=== PATIENT | male | born 1935 | race Caucasian/White ===

== ENCOUNTER 2019-09-03 15:20 | Inpatient (IN) | payer MEDICARE, OTHER, SELFPAY ==
[2019-09-03] VITALS (9 sets, daily range): BP systolic 124–190; BP diastolic 61–90; PULSE 54–73; RESP 16–18; TEMP 36.4–37.1; O2SAT 92–96; BMI 25.9
--- NOTE | 2019-09-03 | GALL_PTH ---
PATIENT: BLOSSOM BASS LOC: MS3 U#:[id number] AGE/SX: 83/M ROOM: CT320 RE09/04/[address]: Dr. Chaka Hung MD : 1935 BED: 1 DIS: 09/11/2019 SPEC #: [id number] RECD: 09/07/19 16:14 STATUS: BRISSA REMerly #: [id number] REGINO: 09/03/19 00:[address]: Octaviano Ramos DEPT: SURGICAL PATHOLOGY RECD BY: Husam Philip ENTERED: 09/08/19 09:50 SP TYPE: GALLBLADDE OTHR DR: DO Dr. Mick Garcia MD Dr. Jayaprakas Dasari, MD Dr. Juan Miguel Proano, MD Dr. Nicholas F Kotsonis, MD No Primary Care Phys Tissues: Gallbladder, NOS Procedures: Surgery Specimen Level III HEADER OPERATION: ERCP PRE-OP DIAGNOSIS: Choledocholithiasis; biliary jaundice TISSUE SUBMITTED: Gallbladder MICROSCOPIC DIAGNOSIS Gallbladder, cholecystectomy: Moderate to marked chronic cholecystitis and cholelithiasis. Adherent piece of liver parenchymal tissue with portal acute and chronic inflammation and reactive changes. MONA:natalie 09/09/19 MICROSCOPIC DESCRIPTION Slides are reviewed. GROSS DESCRIPTION Received is one container labeled with the patient's name and designated gallbladder. The specimen consists of a gallbladder measuring 9 cm in length and up to 3.5 cm in diameter. The external surface is pink-huston, smooth and glistening for the most part. Focally it is granular, hemorrhagic and contains cautery artifact. The gallbladder contains a scant amount of green-yellow mucoid bile and multiple black irregular stones measuring in aggregate 2.5 x 2 x 0.5 cm and 0.3 to 0.5 cm in greatest dimension. The mucosa is bile-stained and without any mass lesions. The gallbladder wall measures up to 0.3 cm in thickness. Talent Development Consultant sections from the gallbladder and the cystic duct are submitted in one cassette. / MONA:natalie 09/08/19 TC:3 [facility] [place]: [id number]
--- NOTE | 2019-09-03 15:46 | HP.PCM_ITS ---
<Joe Jarquin - Last Filed: 09/03/19 15:46> Problem List (1) Choledocholithiasis Status: Acute (2) Obstructive uropathy Status: Acute (3) ALYSON (acute kidney injury) Status: Acute (4) GERD (gastroesophageal reflux disease) Status: Chronic (5) HTN (hypertension) Status: Chronic (6) BPH (benign prostatic hyperplasia) Status: Chronic History of Present Illness Date of Admission: 09/03/19 Chief Complaint: RUQ pain The patient is a 83 year old M with pmhx of BPH, GERD, HTN, CONNER, who presented to [facility] with c/o RUQ abdominal pain. This has been present since saturday. He has had associated nausea and vomiting. He went to [facility] and was reportedly found to have elevated bili, positive influenza, and ALYSON. Unfortunately no labs were sent with his paperwork so stat labs are pending. He was brought to [facility] and is going to be taken for an ERCP with Dr. Ramos. He currently c/o ongoing RUQ pain. He attempted to void and had about 200 cc out and about 800 cc retained. He has seen Dr. Eden in the past for BPH and has had a TURP. He has no fever/chills. No cough / SOB. He denies a hx of heart dz. He states he is alleric to [facility] however he received Zosyn at [facility] and has been itchy since. [] Past Medical History Past Medical History (Chronic Problems): Chronic Problems GERD (gastroesophageal reflux disease) (Chronic) HTN (hypertension) (Chronic) BPH (benign prostatic hyperplasia) (Chronic) Surgical History: TURP Psychiatric History: Depression Lives: Spouse/ Significant Other Smoking Status: Never smoker Tobacco Use: Non-smoker Alcohol: None Drugs: None - *Family History Maternal History Items: Stroke Paternal History Items: Cancer - prostate Review of Systems Constitutional: Denies: Chills, Fever, Weight Change HEENT: Denies: Head Aches, Sinus Congestion, Sinus Drainage Cardiovascular: Denies: Chest Pain, Palpitations Respiratory: Denies: Cough, Shortness of breath at rest, Sputum production Gastrointestinal: Reports: Abdominal Pain, Nausea, Vomiting Genitourinary: Reports: Retention. Denies: Dysuria, Urgency Musculoskeletal: Denies: Joint Pain, Joint Tenderness Skin: Denies: Rash, Wounds Neurological: Denies: Numbness, Tingling, Focal weakness Psychiatric: Denies: Anxiety, Depression, Homicidal Ideations, Suicidal Ideations Hematologic/ Lymphatic: Denies: Easy Bruising, Easy Bleeding VTE Information - Inpt Only VTE Present on Admission: No VTE Mechan Device Prophylaxis: SCD's VTE Pharm Prophylaxis ordered?: No Patient Problems: Active and Suspected Problems Choledocholithiasis (Acute) ALYSON (acute kidney injury) (Acute) Obstructive uropathy (Acute) - Physical Exam Vitals/I&O's: Vital Signs Temp Pulse Resp BP Pulse Ox 97.6 F L 55 L 18 155/80 H 96 09/03/19 15:28 09/03/19 15:28 09/03/19 15:28 09/03/19 15:28 09/03/19 15:28 Oxygen Delivery Method Room Air Weight: 175 lb 4.8 oz Body Mass Index (BMI) 25.9 General: Alert, Oriented x3, Cooperative HEENT: Atraumatic, PERRLA, EOMI, Normocephalic Neck: Supple, No JVD, Negative Carotid Bruits Lungs: Clear to auscultation, Normal air movement Cardiovascular: Regular rate, No murmurs Abdomen: Bowel Sounds Present, Soft, Tender - RUQ Extremities: No edema, Capillary Refill Less than 3 Seconds Skin: No rashes, No breakdown Musculoskeletal: No Tenderness to Palpation of Joints or Extremities Neurological: Cranial nerves II-XII grossly intact Psych/Mental Status: Normal Affect, Appropriate, Alert and oriented to time, place, person, mood and affect Current Medications Sodium Chloride () 1,000 mls @ 100 mls/hr IV .Q10H MAURILIO Morphine Sulfate () 1 mg IV Q2H PRN PRN PRN Reason: Pain Score 6-10/10 Ondansetron HCl (Zofran) 4 mg IV Q6H PRN PRN PRN Reason: NAUSEA Assessment/Plan All Active Problems Choledocholithiasis (Acute) ALYSON (acute kidney injury) (Acute) Obstructive uropathy (Acute) 1. Choledocholithiasis - ERCP now with Dr. Ramos. Likely gallbladder out tomorrow or saturday. Stat labs pending. Received zosyn with some mild itching (allergic to pcn), watch for further reaction. 2. ALYSON 2/2 BPH/obstructive uropathy - pt of Dr. Eden. Place ortega. Adjust home meds once clarified. 3. CONNER - will try to bring CPAP 3. GERD - ppi 4. HTN/HLD - continue home meds 5. Depression - zoloft DVT ppx: SCDs This patient was seen by Joe Jarquin PA-C under the supervision of Dr. Carlos. <David Carlos F - Last Filed: 09/03/19 17:52> History of Present Illness The patient is a 83 year old M [] Past Medical History Allergies Penicillins Adverse Reaction (Verified 09/03/19 15:51) Hives - Physical Exam Vitals/I&O's: Vital Signs Temp Pulse Resp BP Pulse Ox 98.7 F 73 16 190/90 H 95 09/03/19 17:33 09/03/19 17:33 09/03/19 17:33 09/03/19 17:33 09/03/19 17:33 Oxygen Delivery Method Room Air Weight: 175 lb 4.8 oz Body Mass Index (BMI) 25.9 Laboratory Results 09/03/19 15:40: WBC 7.2, RBC 4.68, Hgb 13.5, Hct 41.8, MCV 89.3, MCH 28.8, MCHC 32.3, RDW Std Deviation 46.5 H, RDW Coeff of Ezio 14.4, Plt Count 135 L, MPV 11.8, Neut % (Auto) Not Reportable, Absolute Neuts (auto) 5.3, Absolute Lymphs (auto) 0.50 L, Total Counted 100, Neutrophils % (Manual) 72 H, Band Neutrophils % 1, Lymphocytes % (Manual) 18 L, Monocytes % (Manual) 7, Eosinophils % (Manual) 2, Diff Path Review December, Platelet Estimate SLT DEC, RBC Morphology NORM C+C 09/03/19 15:40: PT 16.0 H, INR 1.3, APTT 29.3 09/03/19 15:40: Sodium 140, Potassium 4.4, Chloride 110 H, Carbon Dioxide 22.0, Anion Gap 8, BUN 106 H*, Creatinine 6.85 H, Estim Creat Clear Calc 8.31, Est GFR (MDRD) Af Amer 10 L, Est GFR (MDRD) Non-Af 8 L, BUN/Creatinine Ratio 15.5, Glucose 88, Calcium 8.7, Total Bilirubin 2.40 H, AST 129 H, ALT 150 H, Alkaline Phosphatase 580 H, Total Protein 7.1, Albumin 2.6 L, Globulin 4.5 H, Albumin/Globulin Ratio 0.6 L Current Medications Sodium Chloride () 1,000 mls @ 100 mls/hr IV .Q10H MAURILIO Lactated Ringer's () 1,000 mls @ 100 mls/hr IV .Q10H MAURILIO Morphine Sulfate () 1 mg IV Q2H PRN PRN PRN Reason: Pain Score 6-10/10 Ondansetron HCl (Zofran) 4 mg IV Q6H PRN PRN PRN Reason: NAUSEA Sodium Chloride () 10 - 40 ml IV UD PRN PRN Reason: SALINE FLUSH Code Visit Addendum: Dr. Carlos I personally examined the patient and reviewed the chart. I agree with the above. 83-year-old man who presented to [place] with right upper quadrant abdominal pain. He says at this been going on since about Saturday and when he presented to the ER he was found to have an elevated total bilirubin as well as an elevated alk phos. Also his creatinine was around 7 and therefore they recommended transfer to a higher level of care. He has not been seen in this institution since about 2012. However based on his lab work Dr. Ramos per form an ERCP and plan cystoscopy stent in both his common bile duct as well as pancreatic duct. He did have drainage and he believes he got all the stone fragments. We will continue to monitor him on IV fluids as well as continue with the Ortega that was placed since he had about 800 cc of urine out. He does have a history of BPH and had a TURP in the past by urology. OBSV E&M: [id number] Initial observation care L3
[2019-09-03] MEDS: Lactated Ringers 1,000 ML 100 ML IV ×2 (16:00→17:59)
[2019-09-03 16:02] LABS: Hematocrit 41.8 % (40-54); Hemoglobin 13.5 g/dL (13.0-16.5); Mean Corp Hgb Conc 32.3 g/dL (32-36); Mean Corpuscular Hgb 28.8 pg (27.0-32.0); Mean Corpuscular Volume 89.3 fL (80-94); Mean Platelet Vol. 11.8 fl (6.2-12.0); POSITIVE COUNT YES; POSITIVE MORPHOLOGY YES; Platelet Count 135 K/mm3 (150-450); RBC Distribution Width CV 14.4 % (11.6-14.6); RBC Distribution Width SD 46.5 fl (35.1-43.9); Red Blood Count 4.68 M/mm3 (4.6-6.2); White Blood Count 7.2 K/mm3 (4.4-11.0)
[2019-09-03 16:03] LABS: Differential Indicated MANUAL DIFF
[2019-09-03 16:04] LABS: International Normalized Ratio 1.3
[2019-09-03 16:05] LABS: Partial Thromboplast Time 29.3 Seconds (24.1-36.2)
--- NOTE | 2019-09-03 16:09 | CON.PCM_ITS ---
Problem List (1) Choledocholithiasis Status: Acute Reason for Consult Date of Consultation: 09/03/19 Reason for Consultation: Choledocholithiasis History of Present Illness: The patient is a 83 year old M presented to the outside ER with right upper quadrant pain. Patient reports that he has been nauseous for the past few days with right upper quadrant pain. He also said that he had the flu with nausea and vomiting. Past Medical History Past Medical History (Chronic Problems): Chronic Problems GERD (gastroesophageal reflux disease) (Chronic) HTN (hypertension) (Chronic) BPH (benign prostatic hyperplasia) (Chronic) Allergies Penicillins Adverse Reaction (Verified 09/03/19 15:51) Hives Surgical History: TURP Psychiatric History: Depression Lives: Spouse/ Significant Other Smoking Status: Never smoker Tobacco Use: Non-smoker Alcohol: None Drugs: None - *Family History Maternal History Items: Stroke Paternal History Items: Cancer - prostate Review of Systems Constitutional: Denies: Anorexia, Fever Respiratory: Denies: Cough Gastrointestinal: Reports: Abdominal Pain, Nausea, Vomiting Genitourinary: Reports: Retention, - - History of urinary obstruction Skin: Reports: Jaundice Psychiatric: Denies: Anxiety Hematologic/ Lymphatic: Denies: Adenopathy, Anemia Patient Problems: Active and Suspected Problems Choledocholithiasis (Acute) ALYSON (acute kidney injury) (Acute) Obstructive uropathy (Acute) - Physical Exam Vitals/I&O's: Vital Signs Temp Pulse Resp BP Pulse Ox 97.6 F L 55 L 18 155/80 H 96 09/03/19 16:01 09/03/19 16:01 09/03/19 16:01 09/03/19 16:01 09/03/19 16:01 Oxygen Delivery Method Room Air Weight: 175 lb 4.8 oz Body Mass Index (BMI) 25.9 General: Alert, Oriented x3 Neck: No JVD Lungs: Normal air movement Cardiovascular: Regular rate, Regular Rhythm Abdomen: Soft, Non-Distended, Tender - Tender in the right upper quadrant Musculoskeletal: No Muscle Wasting Neurological: Cranial nerves II-XII grossly intact Psych/Mental Status: Normal Affect Laboratory Results 09/03/19 15:40: WBC 7.2, RBC 4.68, Hgb 13.5, Hct 41.8, MCV 89.3, MCH 28.8, MCHC 32.3, RDW Std Deviation 46.5 H, RDW Coeff of Ezio 14.4, Plt Count 135 L, MPV 11.8, Neut % (Auto) Not Reportable, Absolute Neuts (auto) Pending 09/03/19 15:40: PT 16.0 H, INR 1.3, APTT 29.3 09/03/19 15:40: Sodium Pending, Potassium Pending, Chloride Pending, Carbon Dioxide Pending, Anion Gap Pending, BUN Pending, Creatinine Pending, Est GFR (MDRD) Af Amer Pending, Est GFR (MDRD) Non-Af Pending, BUN/Creatinine Ratio Pending, Glucose Pending, Calcium Pending, Total Bilirubin Pending, AST Pending, ALT Pending, Alkaline Phosphatase Pending, Total Protein Pending, Albumin Pending Current Medications Sodium Chloride () 1,000 mls @ 100 mls/hr IV .Q10H MAURILIO Lactated Ringer's () 1,000 mls @ 100 mls/hr IV .Q10H MAURILIO Morphine Sulfate () 1 mg IV Q2H PRN PRN PRN Reason: Pain Score 6-10/10 Ondansetron HCl (Zofran) 4 mg IV Q6H PRN PRN PRN Reason: NAUSEA Sodium Chloride () 10 - 40 ml IV UD PRN PRN Reason: SALINE FLUSH Assessment/Plan All Active Problems Choledocholithiasis (Acute) ALYSON (acute kidney injury) (Acute) Obstructive uropathy (Acute) 83-year-old male with choledocholithiasis and biliary jaundice 1. Patient has CT scan which showed dilation of the common bile duct as well as a small stone in the distal common bile duct. He also has cholelithiasis. Patient has elevated LFTs. I discussed his findings with him and recommended ERCP. I discussed the risks of ERCP including but not limited to bleeding, infection, perforation of the bile duct or bowel, pancreatitis. I also explained placing a stent so that no other stones moved into his common bile duct and re-obstructed him before his gallbladder would be able to be removed. Patient received antibiotics at the outside hospital. 2. Patient is also having elevated creatinine. The patient does not report decrease in urine amounts. He has a history of TUR and urinary bladder obstruction. The patient was scanned for 900 cc of urine and then try to void and only got [address] a Franklin during the surgery and consult urology for obstructive uropathy. Check creatinine in the morning. Octaviano Ramos MD Pager: [facility] [address] [place] [address] [address] [place] [address] Office:
[2019-09-03 16:10] LABS: ALB/GLOB Ratio 0.6 RATIO (0.9-2.4); AST(SGOT) 129 U/L (15-37); Alanine Aminotransfer ALT/SGPT 150 U/L (16-61); Albumin, Serum 2.6 g/dL (3.2-5.0); Alkaline Phosphatase 580 U/L (45-117); Anion Gap 8 (5-15); BUN 106 mg/dL (7-18); BUN/Creat Ratio 15.5 RATIO (10-20); Calcium,Total 8.7 mg/dL (8.5-10.1); Chloride 110 mmol/L (98-107); Creatinine, Serum 6.85 mg/dL (0.70-1.30); EST Glomerular Filtration Rate 8 mL/min (>60); Est Glom Filt Rate - Afr Amer 10 mL/min (>60); Estimated Creatinine Clearance 8.31 ml/min; Globulin 4.5 g/dL (2.2-4.2); Glucose 88 mg/dL (74-106); Potassium 4.4 mmol/L (3.5-5.1); Protein, Total 7.1 g/dL (6.4-8.2); Sodium Level 140 mmol/L (136-145)
--- NOTE | 2019-09-03 16:20 | SUR.OPER ---
18FR ortega inserted in OR after pt. received anesthesia.
--- NOTE | 2019-09-03 16:22 | RAD_ITS ---
STUDY: ERCP. REASON FOR EXAM: Male, 83 years old. ERCP IN O.R., PAIN. -- BILIARY AND PANCREATIC DUCT PLACED FLUOROSCOPY TIME (if supplied): ( 6 minutes and 11 seconds. ) minutes/seconds TECHNIQUE: The surgeon performed the ERCP. Imaging was submitted. COMPARISON: None. FINDINGS: Images demonstrate placement of a stent in the common bile duct and in the pancreatic duct. RAD/ERCP Biliary/Pancreas IMPRESSION: Stent placement in the common bile duct and pancreatic duct. Electronically Signed: Delmar Durbin, at 8:41 EST , Service support ,
[2019-09-03 16:33] LABS: Eosinophil 2 % (0-5); Lymphocyte 18 % (19-41); Monocyte 7 % (0-10); Neutrophil-Band 1 % (0-5); Neutrophil-Segmented 72 % (47-70); Red Cell Morphology NORM C+C NORMAL (NORM C&C); Total Cells Counted 100 (MANUAL DIFF)
[2019-09-03 16:34] LABS: Platelet Estimate SLT DEC (ADEQ)
[2019-09-03 16:38] LABS: Absolute Neutrophil Count 5.3 X10^3/uL (2.0-7.7)
--- NOTE | 2019-09-03 17:03 | PCA ---
pt off floor
--- NOTE | 2019-09-03 17:54 | OP.ERCP_ITS ---
Patient Name: Hosea Peterson Procedure Date: 09/03/2019 3:46 PM Date of : 1935 Age: 83 Procedure: ERCP Indications: Bile duct stone(s) Providers: Octaviano Ramos MD Medicines: General Anesthesia Patient Profile: This is an 83 year old male. Refer to note in patient chart for documentation of history and physical. Complications: No immediate complications. Procedure: Pre-Anesthesia Assessment: - Prior to the procedure, a History and Physical was performed, and patient medications and allergies were reviewed. The patient's tolerance of previous anesthesia was also reviewed. The risks and benefits of the procedure and the sedation options and risks were discussed with the patient. All questions were answered, and informed consent was obtained. Prior Anticoagulants: The patient has taken no previous anticoagulant or antiplatelet agents. After reviewing the risks and benefits, the patient was deemed in satisfactory condition to undergo the procedure. After obtaining informed consent, the scope was passed under direct vision. Throughout the procedure, the patient's blood pressure, pulse, and oxygen saturations were monitored continuously. The [id number] endoscope was introduced through the mouth, and advanced to the duodenum and used to inject contrast into the bile duct and ventral pancreatic duct. The ERCP was accomplished without difficulty. The patient tolerated the procedure well. Scope In: 4:31:21 PM Scope Out: 5:18:31 PM Total Procedure Duration Time 0 hours 47 minutes 10 seconds Findings: The major papilla was normal. The bile duct could not be cannulated. Wire was inserted into pancreatic duct. Dreamtome with a second wire was used to cannulated the common bile duct. A 0.035 inch x 260 cm straight Dreamwire was passed into the biliary tree. The sphincterotome was passed over the guidewire and the bile duct was then deeply cannulated. Contrast was injected. Biliary sphincterotomy was made with a monofilament sphincterotome using ERBE electrocautery. There was no post-sphincterotomy bleeding. To discover objects, the biliary tree was swept with a 12 mm balloon starting at the bifurcation. One stone was removed. One stone remained. The biliary tree was swept with a basket starting at the bifurcation. One stone was removed. No stones remained. One 7 Fr by 5 cm plastic stent with a single external flap and a single internal flap was placed into the common bile duct. Bile flowed through the stent. The stent was in good position. One 4 Fr by 5 cm plastic stent with a 3/4 external pigtail and a single internal flap was placed into the ventral pancreatic duct. Clear fluid flowed through the stent. The stent was in good position. Impression: - The major papilla appeared normal. - Choledocholithiasis was found. Removal was accomplished with biliary sphincterotomy; a stent was inserted. - A biliary sphincterotomy was performed. - The biliary tree was swept. - One plastic stent was placed into the common bile duct. - One plastic stent was placed into the ventral pancreatic duct. Recommendation: - [facility] care. - Watch for pancreatitis, bleeding, perforation, and cholangitis. Procedure Code(s): --- Professional --- 29524, Endoscopic retrograde cholangiopancreatography (ERCP); with placement of endoscopic stent into biliary or pancreatic duct, including pre- and post-dilation and guide wire passage, when performed, including sphincterotomy, when performed, each stent [id number], 51, Endoscopic retrograde cholangiopancreatography (ERCP); with removal of calculi/debris from biliary/pancreatic duct(s) Diagnosis Code(s): --- Professional --- K80.50, Calculus of bile duct without cholangitis or cholecystitis without obstruction CPT copyright 2017 [employer]. All rights reserved. The codes documented in this report are preliminary and upon adoption counselor review may be revised to meet current compliance requirements. Octaviano Ramos MD 09/03/2019 5:54:01 PM This report has been signed electronically. Number of Addenda: 0 Note Initiated On: 09/03/2019 3:46 PM
--- NOTE | 2019-09-03 19:48 | CPS ---
Pts. home CPAP machine setup at bedside. CPAP 9 with 30 min ramp feature. No O2 was reported to be used with machine per pts. home routine. Water chamber filled and mask placed on with comfort. Will monitor ptRuslan rausch. RN aware.
[2019-09-03] MEDS: Sertraline 50 MG Tablet PO (22:33)
[2019-09-03] MEDS: MELATONIN 10 MG TABLET PO (22:33)
[2019-09-04] MEDS: Lactated Ringers 1,000 ML 100 ML IV (04:07)
[2019-09-04 04:10] VITALS: BP 116/57; PULSE 63; RESP 16; TEMP 36.7; O2SAT 93
--- NOTE | 2019-09-04 04:45 | NURSING ---
SpO2 87-92% on continuous SpO2 monitor. RAFITA Caballero notified and placed 2L on pt via CPAP. SpO2 95% on supplemental O2.
[2019-09-04 05:43] LABS: Hematocrit 33.8 % (40-54); Hemoglobin 11.2 g/dL (13.0-16.5); Mean Corp Hgb Conc 33.1 g/dL (32-36); Mean Corpuscular Hgb 29.4 pg (27.0-32.0); Mean Corpuscular Volume 88.7 fL (80-94); Mean Platelet Vol. 11.8 fl (6.2-12.0); POSITIVE COUNT YES; POSITIVE MORPHOLOGY YES; Platelet Count 120 K/mm3 (150-450); RBC Distribution Width CV 14.4 % (11.6-14.6); RBC Distribution Width SD 46.5 fl (35.1-43.9); Red Blood Count 3.81 M/mm3 (4.6-6.2); White Blood Count 7.5 K/mm3 (4.4-11.0)
[2019-09-04 06:11] LABS: Scan Smear per Review Criteria MANUAL DIFF
[2019-09-04 06:12] LABS: Differential Indicated MANUAL DIFF
[2019-09-04 06:16] LABS: Basophil 2 % (0-1); Eosinophil 4 % (0-5); Lymphocyte 16 % (19-41); Monocyte 10 % (0-10); Neutrophil-Band 4 % (0-5); Neutrophil-Segmented 64 % (47-70); Total Cells Counted 100 (MANUAL DIFF)
[2019-09-04 06:17] LABS: Platelet Estimate ADEQUATE (ADEQ); Red Cell Morphology NORM C+C NORMAL (NORM C&C)
[2019-09-04 06:18] LABS: Absolute Lymphocyte Count 1.19 X10^3/uL (0.83-4.51); Absolute Neutrophil Count 5.1 X10^3/uL (2.0-7.7); Lymphocyte # 1.19 X10^3/ul (4.0); Neutrophil # 5.08 X10^3/uL (2.7-7.7)
[2019-09-04 06:21] LABS: ALB/GLOB Ratio 0.5 RATIO (0.9-2.4); AST(SGOT) 111 U/L (15-37); Alanine Aminotransfer ALT/SGPT 123 U/L (16-61); Alkaline Phosphatase 447 U/L (45-117); Anion Gap 10 (5-15); BUN 107 mg/dL (7-18); BUN/Creat Ratio 16.2 RATIO (10-20); Calcium,Total 8.1 mg/dL (8.5-10.1); Chloride 111 mmol/L (98-107); Creatinine, Serum 6.59 mg/dL (0.70-1.30); EST Glomerular Filtration Rate 9 mL/min (>60); Est Glom Filt Rate - Afr Amer 10 mL/min (>60); Estimated Creatinine Clearance 8.64 ml/min; Globulin 3.7 g/dL (2.2-4.2); Glucose 75 mg/dL (74-106); Lipase 9796 U/L (73-393); Potassium 4.3 mmol/L (3.5-5.1); Protein, Total 5.7 g/dL (6.4-8.2); Sodium Level 142 mmol/L (136-145)
--- NOTE | 2019-09-04 07:08 | PN.SURG_ITS ---
Patient Problems: Active and Suspected Problems Choledocholithiasis (Acute) ALYSON (acute kidney injury) (Acute) Obstructive uropathy (Acute) Subjective: Patient reports his right upper quadrant pain is improved. He is experiencing some mild epigastric pain with no nausea or vomiting. - Physical Exam Vitals/I&O's: Vital Signs Temp Pulse Resp BP Pulse Ox 98.0 F 63 16 116/57 L 93 09/04/19 04:10 09/04/19 04:10 09/04/19 04:10 09/04/19 04:10 09/04/19 04:10 Oxygen Flow Rate (L/min) 2 Oxygen Delivery Method CPAP Weight: 175 lb 4.8 oz Body Mass Index (BMI) 25.9 Intake and Output for Last 24 Hours 09/02/19 09/03/19 09/04/19 23:59 23:59 23:59 Intake Total 1000 / 1150 1300 / 1300 Output Total 750 / 1100 900 / 900 Balance 250 / 50 400 / 400 General: Alert, Oriented x3 Lungs: Normal air movement Cardiovascular: Regular rate, Regular Rhythm Abdomen: Soft, Non-Distended, Tender - Mild epigastric tenderness to palpation Laboratory Results 09/03/19 15:40: WBC 7.2, RBC 4.68, Hgb 13.5, Hct 41.8, MCV 89.3, MCH 28.8, MCHC 32.3, RDW Std Deviation 46.5 H, RDW Coeff of Ezio 14.4, Plt Count 135 L, MPV 11.8, Neut % (Auto) Not Reportable, Absolute Neuts (auto) 5.3, Absolute Lymphs (auto) 1.30, Total Counted 100, Neutrophils % (Manual) 72 H, Band Neutrophils % 1, Lymphocytes % (Manual) 18 L, Monocytes % (Manual) 7, Eosinophils % (Manual) 2, Diff Path Review December, Platelet Estimate SLT DEC, RBC Morphology NORM C+C 09/03/19 15:40: PT 16.0 H, INR 1.3, APTT 29.3 09/03/19 15:40: Sodium 140, Potassium 4.4, Chloride 110 H, Carbon Dioxide 22.0, Anion Gap 8, BUN 106 H*, Creatinine 6.85 H, Estim Creat Clear Calc 8.31, Est GFR (MDRD) Af Amer 10 L, Est GFR (MDRD) Non-Af 8 L, BUN/Creatinine Ratio 15.5, Glucose 88, Calcium 8.7, Total Bilirubin 2.40 H, AST 129 H, ALT 150 H, Alkaline Phosphatase 580 H, Total Protein 7.1, Albumin 2.6 L, Globulin 4.5 H, Albumin/Globulin Ratio 0.6 L 09/04/19 05:18: WBC 7.5, RBC 3.81 L, Hgb 11.2 L, Hct 33.8 L, MCV 88.7, MCH 29.4, MCHC 33.1, RDW Std Deviation 46.5 H, RDW Coeff of Ezio 14.4, Plt Count 120 L, MPV 11.8, Immature Gran % (Auto) CONCERT PROMOTER, Neut % (Auto) CONCERT PROMOTER, Lymph % (Auto) CONCERT PROMOTER, Ellis % (Auto) CONCERT PROMOTER, Eos % (Auto) CONCERT PROMOTER, Baso % (Auto) CONCERT PROMOTER, Absolute Neuts (auto) 5.1, Absolute Lymphs (auto) 1.19, Total Counted 100, Neutrophils % (Manual) 64, Band Neutrophils % 4, Lymphocytes % (Manual) 16 L, Monocytes % (Manual) 10, Eosinophils % (Manual) 4, Basophils % (Manual) 2 H, Nucleated RBC % CONCERT PROMOTER, Diff Path Review December, Platelet Estimate ADEQUATE, RBC Morphology NORM C+C 09/04/19 05:18: Sodium 142, Potassium 4.3, Chloride 111 H, Carbon Dioxide 21.0, Anion Gap 10, BUN 107 H*, Creatinine 6.59 H, Estim Creat Clear Calc 8.64, Est GFR (MDRD) Af Amer 10 L, Est GFR (MDRD) Non-Af 9 L, BUN/Creatinine Ratio 16.2, Glucose 75, Calcium 8.1 L, Total Bilirubin 2.10 H, AST 111 H, ALT 123 H, Alkaline Phosphatase 447 H, Total Protein 5.7 L, Albumin 2.0 L, Globulin 3.7, Albumin/Globulin Ratio 0.5 L, Lipase 9796 H Current Medications Lactated Ringer's () 1,000 mls @ 100 mls/hr IV .Q10H [facility] Last Admin: 09/04/19 04:07 Dose: 100 mls/hr Documented by: Melatonin (Melatonin) 10 mg PO QHS [facility] Last Admin: 09/03/19 22:33 Dose: 10 mg Documented by: Morphine Sulfate () 1 mg IV Q2H PRN PRN PRN Reason: Pain Score 6-10/10 Ondansetron HCl (Zofran) 4 mg IV Q6H PRN PRN PRN Reason: NAUSEA Sertraline HCl (Zoloft) 50 mg PO QHS [facility] Last Admin: 09/03/19 22:33 Dose: 50 mg Documented by: Sodium Chloride () 10 - 40 ml IV UD PRN PRN Reason: SALINE FLUSH Medical Necessity - Tobacco Use Smoking Status: Never smoker Tobacco Use: Non-smoker Assessment/Plan All Active Problems Choledocholithiasis (Acute) ALYSON (acute kidney injury) (Acute) Obstructive uropathy (Acute) 83-year-old male status post ERCP 1. Patient had biliary and pancreatic stent placed and common duct stone removed. This morning the patient says his right upper quadrant pain is improved and his white count is still normal. He is having some mild epigastric pain with no nausea or vomiting. His lipase is elevated. I will order him some clear liquids today and recheck a lipase this afternoon. If his epigastric pain has resolved and his lipase is improving this afternoon he may start a regular diet. Octaviano Ramos MD Pager: [facility] [address] [place] [address], [address] [place] [address] Office:
[2019-09-04 07:34] VITALS: BP 131/66; PULSE 61; RESP 16; TEMP 36.6; O2SAT 94
--- NOTE | 2019-09-04 08:31 | PCM.PN.HOSP ---
Patient Problems: Active and Suspected Problems Choledocholithiasis (Acute) ALYSON (acute kidney injury) (Acute) Obstructive uropathy (Acute) Reason for Visit: choledocholithiasis Subjective: Feels good. No new complaints. Vitals/I&O's: Vital Signs Temp Pulse Resp BP Pulse Ox 36.6 C 61 16 131/66 H 94 09/04/19 07:34 09/04/19 07:34 09/04/19 07:34 09/04/19 07:34 09/04/19 07:34 Oxygen Flow Rate (L/min) 2 Oxygen Delivery Method Room Air Weight: 79.515 kg Body Mass Index (BMI) 25.9 Intake and Output for Last 24 Hours 09/02/19 09/03/19 09/04/19 23:59 23:59 23:59 Intake Total 1000 / 1150 1651.67 / 1651.67 Output Total 750 / 1100 900 / 900 Balance 250 / 50 751.67 / 751.67 General: Alert, No apparent distress HEENT: Atraumatic, Normocephalic Oral: Moist Mucosa, No Gingival or Mucosal Lesions/ Ulcerations Neck: No Nodes, Trachea Midline Lungs: Clear to auscultation, Normal air movement, No rhonchi, No wheeze, No rales Cardiovascular: Regular rate, Regular Rhythm, Normal S1, Normal S2, No murmurs Abdomen: Bowel Sounds Present, Soft, Non Tender, Non-Distended Extremities: No edema, No Calf Tenderness Laboratory Results 09/03/19 15:40: WBC 7.2, RBC 4.68, Hgb 13.5, Hct 41.8, MCV 89.3, MCH 28.8, MCHC 32.3, RDW Std Deviation 46.5 H, RDW Coeff of Ezio 14.4, Plt Count 135 L, MPV 11.8, Neut % (Auto) Not Reportable, Absolute Neuts (auto) 5.3, Absolute Lymphs (auto) 1.30, Total Counted 100, Neutrophils % (Manual) 72 H, Band Neutrophils % 1, Lymphocytes % (Manual) 18 L, Monocytes % (Manual) 7, Eosinophils % (Manual) 2, Diff Path Review December, Platelet Estimate SLT DEC, RBC Morphology NORM C+C 09/03/19 15:40: PT 16.0 H, INR 1.3, APTT 29.3 01/23/20 15:40: Sodium 140, Potassium 4.4, Chloride 110 H, Carbon Dioxide 22.0, Anion Gap 8, BUN 106 H*, Creatinine 6.85 H, Estim Creat Clear Calc 8.31, Est GFR (MDRD) Af Amer 10 L, Est GFR (MDRD) Non-Af 8 L, BUN/Creatinine Ratio 15.5, Glucose 88, Calcium 8.7, Total Bilirubin 2.40 H, AST 129 H, ALT 150 H, Alkaline Phosphatase 580 H, Total Protein 7.1, Albumin 2.6 L, Globulin 4.5 H, Albumin/Globulin Ratio 0.6 L 09/04/19 05:18: WBC 7.5, RBC 3.81 L, Hgb 11.2 L, Hct 33.8 L, MCV 88.7, MCH 29.4, MCHC 33.1, RDW Std Deviation 46.5 H, RDW Coeff of Ezio 14.4, Plt Count 120 L, MPV 11.8, Immature Gran % (Auto) PROCESS CONTROL SUPERVISOR, Neut % (Auto) PROCESS CONTROL SUPERVISOR, Lymph % (Auto) PROCESS CONTROL SUPERVISOR, Grainger % (Auto) PROCESS CONTROL SUPERVISOR, Eos % (Auto) PROCESS CONTROL SUPERVISOR, Baso % (Auto) PROCESS CONTROL SUPERVISOR, Absolute Neuts (auto) 5.1, Absolute Lymphs (auto) 1.19, Total Counted 100, Neutrophils % (Manual) 64, Band Neutrophils % 4, Lymphocytes % (Manual) 16 L, Monocytes % (Manual) 10, Eosinophils % (Manual) 4, Basophils % (Manual) 2 H, Nucleated RBC % PROCESS CONTROL SUPERVISOR, Diff Path Review December, Platelet Estimate ADEQUATE, RBC Morphology NORM C+C 09/04/19 05:18: Sodium 142, Potassium 4.3, Chloride 111 H, Carbon Dioxide 21.0, Anion Gap 10, BUN 107 H*, Creatinine 6.59 H, Estim Creat Clear Calc 8.64, Est GFR (MDRD) Af Amer 10 L, Est GFR (MDRD) Non-Af 9 L, BUN/Creatinine Ratio 16.2, Glucose 75, Calcium 8.1 L, Total Bilirubin 2.10 H, AST 111 H, ALT 123 H, Alkaline Phosphatase 447 H, Total Protein 5.7 L, Albumin 2.0 L, Globulin 3.7, Albumin/Globulin Ratio 0.5 L, Lipase 9796 H Current Medications Lactated Ringer's () 1,000 mls @ 150 mls/hr IV .Q6H40M [facility] Last Infusion: 09/04/19 07:38 Dose: 150 mls/hr Documented by: Melatonin (Melatonin) 10 mg PO QHS [facility] Last Admin: 09/03/19 22:33 Dose: 10 mg Documented by: Morphine Sulfate () 1 mg IV Q2H PRN PRN PRN Reason: Pain Score 6-10/10 Ondansetron HCl (Zofran) 4 mg IV Q6H PRN PRN PRN Reason: NAUSEA Sertraline HCl (Zoloft) 50 mg PO QHS [facility] Last Admin: 09/03/19 22:33 Dose: 50 mg Documented by: Sodium Chloride () 10 - 40 ml IV UD PRN PRN Reason: SALINE FLUSH STROKE Vital Signs/Narrative: Vital Signs Temp Pulse Resp BP Pulse Ox 09/04/19 07:34 36.6 C 61 16 131/66 H 94 Medical Necessity - Tobacco Use Smoking Status: Never smoker Tobacco Use: Non-smoker Assessment/Plan All Active Problems Choledocholithiasis (Acute) ALYSON (acute kidney injury) (Acute) Obstructive uropathy (Acute) 1. choledocholithiasis improved s/p ERCP on 09/[address] Ramos on [facility] 2. Gallstone pancreatitis 2/2 above clinically doing well now. follow up lipase 3. HTN: stable resume home meds 4. VTE prophylaxis: SCDs Code Visit Inpatient E&M: 40423 Subs Hosp L2
[2019-09-04] MEDS: Lactated Ringers 1,000 ML 150 ML IV (11:27)
--- NOTE | 2019-09-04 13:10 | US_ITS ---
STUDY: RENAL ULTRASOUND - COMPLETE REASON FOR EXAM: Male, 83 years old. [id number] TECHNIQUE: Ultrasound evaluation of the kidneys was performed with real-time and static peralta-scale imaging. COMPARISON: None. FINDINGS: RIGHT KIDNEY: Normal location of the right kidney, which is normal in size. The right kidney measures 11.8 x 5.3 x 5.7 cm. There is a normal cortex of the right kidney. The renal cortex measures 1.1 cm. Within the right kidney and there are 2 round anechoic structure consistent with cysts, located at the upper pole. One is exophytic and measures 2.2 x 2.2 x 1.2 cm and the second is cortical and measuring 1.4 x 1.2 x 1.0 cm. There are no right renal calculi. There is no right hydronephrosis. DISTAL RIGHT URETER: There is non-visualization of the distal right ureter. There is no demonstrated right ureterovesical junction calculus. There is no demonstrated right ureteral jet. LEFT KIDNEY: Normal location of the left kidney, which is normal in size. The left kidney measures 12.2 x 5.2 x 5.7 cm. There is a normal cortex of the left kidney. The renal cortex measures 1.5 cm. There is no left renal mass or cyst. There are no left renal calculi. There is no left hydronephrosis. DISTAL LEFT URETER: There is non-visualization of the distal left ureter. There is no demonstrated left ureterovesical junction calculus. There is a visualized left ureteral jet. BLADDER: The urinary bladder has a volume of 42.8 ml. There is a normal wall thickness of the distended urinary bladder. There is no demonstrated mass within the urinary bladder. There are no demonstrated bladder calculi. US/Kidney and Bladder IMPRESSION: Right-sided renal cysts as described above, otherwise unremarkable ultrasound of the kidneys and visualized urinary bladder. Electronically Signed: Selam Leary MD at 1:04 EST , Service support ,
[2019-09-04 13:32] LABS: Pathologist Review Reviewed
[2019-09-04 13:33] LABS: Pathologist Review Reviewed
[2019-09-04 13:35] LABS: Lipase 21071 U/L (73-393)
[2019-09-04 14:15] VITALS: BP 145/75; PULSE 66; RESP 18; TEMP 36.6; O2SAT 94
--- NOTE | 2019-09-04 14:22 | CASEMGMT ---
RN CM Face to Face with patient for initial transition planning/care coordination assessment. RN CM introduced self and role at [facility]. Patient lying in bed, alert and oriented, at bedside. Patient willing to participate in assessment and is able to answer all questions appropriately. Care providers, pharmacy, and demographics verified. Patient wishes to discharge home, denies need for home health at this time. Patient states he has no further needs or concerns at this time. CM to follow for discharge planning needs that may arise. PCP: [place] Specialists: Meek, urologist; CHAN Cavanaugh; ruben Mcknight Preferred Pharmacy: [facility] Insurance: [facility] Prescription Benefit: yes Living Will/HPOA: none LNOK: Living Arrangements: Patient lives with in condo with no steps to enter the home. Patient is independent at home Transportation: self/ DME/HHC: Patient has cane, walker, raised toilet, grab bars, and cpap at home. Denies previous HHC or SNF. Disposition Plan: Patient to discharge home with family support and follow-up plans in place. Aliza SAUCEDA, RN, CM
[2019-09-04] MEDS: Tamsulosin HCl 0.4 MG Capsule PO (18:03)
[2019-09-04 18:24] LABS: Urine Sodium 81 mmol/L (Not Establ.)
[2019-09-04] MEDS: Lactated Ringers 1,000 ML 200 ML IV ×2 (19:05→23:54)
[2019-09-04] MEDS: MELATONIN 10 MG TABLET PO (22:22)
[2019-09-04] MEDS: Sertraline 50 MG Tablet PO (22:22)
[2019-09-04] MEDS: Atorvastatin Calcium 20 MG Tablet PO (22:22)
[2019-09-04 22:31] VITALS: BP 154/61; PULSE 74; RESP 16; TEMP 37; O2SAT 96
[2019-09-05] MEDS: Lactated Ringers 1,000 ML 200 ML IV ×2 (04:40→09:18)
[2019-09-05 04:46] VITALS: BP 148/72; PULSE 68; RESP 16; TEMP 36.6; O2SAT 95
[2019-09-05 07:16] LABS: Hematocrit 33.9 % (40-54); Hemoglobin 11.2 g/dL (13.0-16.5); Mean Corpuscular Hgb 29.2 pg (27.0-32.0); Mean Corpuscular Volume 88.3 fL (80-94); Mean Platelet Vol. 11.7 fl (6.2-12.0); POSITIVE COUNT YES; POSITIVE MORPHOLOGY YES; Platelet Count 132 K/mm3 (150-450); RBC Distribution Width CV 14.4 % (11.6-14.6); RBC Distribution Width SD 46.5 fl (35.1-43.9); Red Blood Count 3.84 M/mm3 (4.6-6.2); White Blood Count 8.4 K/mm3 (4.4-11.0)
--- NOTE | 2019-09-05 07:22 | PCM.PN.SRG ---
Patient Problems: Active and Suspected Problems Choledocholithiasis (Acute) ALYSON (acute kidney injury) (Acute) Obstructive uropathy (Acute) Subjective: Patient still does have some mild epigastric pain - Physical Exam Vitals/I&O's: Vital Signs Temp Pulse Resp BP Pulse Ox 97.8 F 68 16 148/72 H 95 09/05/19 04:46 09/05/19 04:46 09/05/19 04:46 09/05/19 04:46 09/05/19 04:46 Oxygen Flow Rate (L/min) 2 Oxygen Delivery Method CPAP Weight: 175 lb 4.8 oz Body Mass Index (BMI) 25.9 Intake and Output for Last 24 Hours 09/03/19 09/04/19 09/05/19 23:59 23:59 23:59 Intake Total 1000 / 1150 4647.50 / 4647.50 953.33 / 953.33 Output Total 750 / 1100 2750 / 2750 600 / 600 Balance 250 / 50 1897.50 / 1897.50 353.33 / 353.33 General: Alert, Oriented x3, Cooperative, No apparent distress HEENT: Atraumatic Lungs: Normal air movement Cardiovascular: Regular Rhythm Abdomen: Soft, Distended - Mild, Tender - Mild epigastric, no peritoneal signs Microbiology Past 72 Hours 09/04/19 11:30 Mucosa - Nose Respiratory Panel (PCR) - Final Laboratory Results 09/03/19 15:40: Diff Path Review Reviewed 09/04/19 05:18: Diff Path Review Reviewed 09/04/19 11:47: Lipase 18252 H 09/04/19 17:20: Urine Creatinine 58.10 09/04/19 17:20: Ur Random Sodium 81 09/05/19 06:11: Sodium Pending, Potassium Pending, Chloride Pending, Carbon Dioxide Pending, Anion Gap Pending, BUN Pending, Creatinine Pending, Est GFR (MDRD) Af Amer Pending, Est GFR (MDRD) Non-Af Pending, BUN/Creatinine Ratio Pending, Glucose Pending, Calcium Pending, Total Bilirubin Pending, AST Pending, ALT Pending, Alkaline Phosphatase Pending, Total Protein Pending, Albumin Pending, Lipase Pending 09/05/19 06:11: WBC Pending, RBC Pending, Hgb Pending, Hct Pending, MCV Pending, MCH Pending, MCHC Pending, RDW Std Deviation Pending, RDW Coeff of Ezio Pending, Plt Count Pending, Neut % (Auto) Pending, Absolute Neuts (auto) Pending Current Medications Amlodipine Besylate (Norvasc) 5 mg PO DAILY [facility] Aspirin (Ecotrin) 81 mg PO WeSa@0800 [facility] Atorvastatin Calcium (Lipitor) 20 mg PO QHS [facility] Last Admin: 09/04/19 22:22 Dose: 20 mg Documented by: Lactated Ringer's () 1,000 mls @ 200 mls/hr IV .Q5H [facility] Last Admin: 09/05/19 04:40 Dose: 200 mls/hr Documented by: Melatonin (Melatonin) 10 mg PO QHS [facility] Last Admin: 09/04/19 22:22 Dose: 10 mg Documented by: Morphine Sulfate () 1 mg IV Q2H PRN PRN PRN Reason: Pain Score 6-10/10 Ondansetron HCl (Zofran) 4 mg IV Q6H PRN PRN PRN Reason: NAUSEA Pantoprazole Sodium (Protonix) 20 mg PO DAILY [facility] Sertraline HCl (Zoloft) 50 mg PO QHS [facility] Last Admin: 09/04/19 22:22 Dose: 50 mg Documented by: Sodium Chloride () 10 - 40 ml IV UD PRN PRN Reason: SALINE FLUSH Tamsulosin HCl (Flomax) 0.4 mg PO DAILY@1730 [facility] Last Admin: 09/04/19 18:03 Dose: 0.4 mg Documented by: Medical Necessity - Tobacco Use Smoking Status: Never smoker Tobacco Use: Non-smoker Assessment/Plan All Active Problems Choledocholithiasis (Acute) ALYSON (acute kidney injury) (Acute) Obstructive uropathy (Acute) 83-year-old male status post ERCP for choledocholithiasis with stent and common bile duct as well as pancreatic duct, acute kidney injury 1. N.p.o./IV fluids will check labs if lipase is improved patient may be able to have clears. 2. ALYSON work-up per medicine, labs pending 3. Cholelithiasis patient is scheduled for laparoscopic cholecystectomy on Saturday afternoon with Dr. Ramos. 4. [place] for urinary retention Callie Butler M.D. Pager: [phone] [facility] [address] [place] [address], [address] [place] [address] Office: [phone]
[2019-09-05 07:23] LABS: Differential Indicated MANUAL DIFF
[2019-09-05 07:45] VITALS: O2SAT 92
[2019-09-05 07:50] LABS: Eosinophil 2 % (0-5); Lymphocyte 24 % (19-41); Metamyelocyte 6 % (0-1); Monocyte 1 % (0-10); Neutrophil-Band 1 % (0-5); Neutrophil-Segmented 66 % (47-70); Platelet Estimate ADEQUATE (ADEQ); Red Cell Morphology NORM C+C NORMAL (NORM C&C); Total Cells Counted 100 (MANUAL DIFF)
[2019-09-05 07:51] LABS: Absolute Neutrophil Count 5.7 X10^3/uL (2.0-7.7); Neutrophil # 5.65 X10^3/uL (2.7-7.7)
[2019-09-05 07:52] LABS: Absolute Lymphocyte Count 2.02 X10^3/uL (0.83-4.51); Lymphocyte # 2.02 X10^3/ul (4.0)
[2019-09-05 07:56] LABS: ALB/GLOB Ratio 0.5 RATIO (0.9-2.4); AST(SGOT) 76 U/L (15-37); Alanine Aminotransfer ALT/SGPT 94 U/L (16-61); Albumin, Serum 1.9 g/dL (3.2-5.0); Alkaline Phosphatase 413 U/L (45-117); Anion Gap 7 (5-15); BUN 89 mg/dL (7-18); BUN/Creat Ratio 15.7 RATIO (10-20); Calcium,Total 7.8 mg/dL (8.5-10.1); Chloride 113 mmol/L (98-107); Creatinine, Serum 5.66 mg/dL (0.70-1.30); EST Glomerular Filtration Rate 10 mL/min (>60); Est Glom Filt Rate - Afr Amer 12 mL/min (>60); Estimated Creatinine Clearance 10.06 ml/min; Glucose 90 mg/dL (74-106); Lipase 12545 U/L (73-393); Potassium 3.8 mmol/L (3.5-5.1); Protein, Total 5.9 g/dL (6.4-8.2); Sodium Level 143 mmol/L (136-145)
--- NOTE | 2019-09-05 08:26 | PN_ITS ---
Patient Problems: Active and Suspected Problems Choledocholithiasis (Acute) ALYSON (acute kidney injury) (Acute) Obstructive uropathy (Acute) Reason for Visit: choledocholithiasis Subjective: Feels better. Denies issues with urinary retention as outpt. Had urinary retention last night 600cc+. Ortega replaced and started on tamsulosin. Vitals/I&O's: Vital Signs Temp Pulse Resp BP Pulse Ox 36.6 C 68 16 148/72 H 92 09/05/19 04:46 09/05/19 04:46 09/05/19 04:46 09/05/19 04:46 09/05/19 07:45 Oxygen Flow Rate (L/min) 2 Oxygen Delivery Method Room Air Weight: 79.515 kg Body Mass Index (BMI) 25.9 Intake and Output for Last 24 Hours 09/03/19 09/04/19 09/05/19 23:59 23:59 23:59 Intake Total 1000 / 1150 4647.50 / 4647.50 953.33 / 953.33 Output Total 750 / 1100 2750 / 2750 600 / 600 Balance 250 / 50 1897.50 / 1897.50 353.33 / 353.33 General: Alert, No apparent distress HEENT: Atraumatic, Normocephalic Oral: Moist Mucosa, No Gingival or Mucosal Lesions/ Ulcerations Neck: No Nodes, Trachea Midline Lungs: Clear to auscultation, Normal air movement, No rhonchi, No wheeze, No rales Cardiovascular: Regular rate, Regular Rhythm, Normal S1, Normal S2, No murmurs Abdomen: Bowel Sounds Present, Soft, Non Tender, Non-Distended, No Hepato- splenomegaly Extremities: No edema, No Calf Tenderness Skin: No rashes, No breakdown Psych/Mental Status: Normal Affect, Appropriate Microbiology Past 72 Hours 09/04/19 11:30 Mucosa - Nose Respiratory Panel (PCR) - Final Laboratory Results 09/03/19 15:40: Diff Path Review Reviewed 09/04/19 05:18: Diff Path Review Reviewed 09/04/19 11:47: Lipase 30947 H 09/04/19 17:20: Urine Creatinine 58.10 09/04/19 17:20: Ur Random Sodium 81 09/05/19 06:11: Sodium 143, Potassium 3.8, Chloride 113 H, Carbon Dioxide 23.0, Anion Gap 7, BUN 89 H, Creatinine 5.66 H, Estim Creat Clear Calc 10.06, Est GFR (MDRD) Af Amer 12 L, Est GFR (MDRD) Non-Af 10 L, BUN/Creatinine Ratio 15.7, Glucose 90, Calcium 7.8 L, Total Bilirubin 1.60 H, AST 76 H, ALT 94 H, Alkaline Phosphatase 413 H, Total Protein 5.9 L, Albumin 1.9 L, Globulin 4.0, Albumin/Globulin Ratio 0.5 L, Lipase 89813 H 09/05/19 06:11: WBC 8.4, RBC 3.84 L, Hgb 11.2 L, Hct 33.9 L, MCV 88.3, MCH 29.2, MCHC 33.0, RDW Std Deviation 46.5 H, RDW Coeff of Ezio 14.4, Plt Count 132 L, MPV 11.7, Neut % (Auto) Not Reportable, Absolute Neuts (auto) 5.7, Absolute Lymphs (auto) 2.02, Total Counted 100, Neutrophils % (Manual) 66, Band Neutrophils % 1, Lymphocytes % (Manual) 24, Monocytes % (Manual) 1, Eosinophils % (Manual) 2, Metamyelocytes % 6 H, Diff Path Review May foll, Platelet Estimate ADEQUATE, RBC Morphology NORM C+C Current Medications Amlodipine Besylate (Norvasc) 5 mg PO DAILY [facility] Aspirin (Ecotrin) 81 mg PO WeSa@0800 [facility] Atorvastatin Calcium (Lipitor) 20 mg PO QHS [facility] Last Admin: 09/04/19 22:22 Dose: 20 mg Documented by: Lactated Ringer's () 1,000 mls @ 200 mls/hr IV .Q5H [facility] Last Admin: 09/05/19 04:40 Dose: 200 mls/hr Documented by: Melatonin (Melatonin) 10 mg PO QHS [facility] Last Admin: 09/04/19 22:22 Dose: 10 mg Documented by: Morphine Sulfate () 1 mg IV Q2H PRN PRN PRN Reason: Pain Score 6-10/10 Ondansetron HCl (Zofran) 4 mg IV Q6H PRN PRN PRN Reason: NAUSEA Pantoprazole Sodium (Protonix) 20 mg PO DAILY [facility] Sertraline HCl (Zoloft) 50 mg PO QHS [facility] Last Admin: 09/04/19 22:22 Dose: 50 mg Documented by: Sodium Chloride () 10 - 40 ml IV UD PRN PRN Reason: SALINE FLUSH Tamsulosin HCl (Flomax) 0.4 mg PO DAILY@1730 [facility] Last Admin: 09/04/19 18:03 Dose: 0.4 mg Documented by: STROKE Vital Signs/Narrative: Vital Signs Temp Pulse Resp BP Pulse Ox 09/05/19 07:45 92 09/05/19 04:46 36.6 C 68 16 148/72 H 95 Medical Necessity - Tobacco Use Smoking Status: Never smoker Tobacco Use: Non-smoker Assessment/Plan All Active Problems Choledocholithiasis (Acute) ALYSON (acute kidney injury) (Acute) Obstructive uropathy (Acute) 1. choledocholithiasis * improved * s/p ERCP on 09/[address] Ramos * on clears 2. Gallstone pancreatitis * 2/2 above +/- worsening from the ERCP * improving, but still elevated * clinically doing well now. * follow up lipase * advance diet to clears * continue IVF, but decrease rate 3. ALYSON * FENa 6.48 * Maybe post-obstructive +/- ATN * Continue ortega * Consult nephrology * US showed no hydronephrosis/hydroureter * IVF * reviewed labs with patient using [facility]: Cr 01/2019 was 1.21, 08/31/2019 was 4.84 and then the labs during this admission * hold nephrotoxic meds 4. Urinary retention * Ortega removed then replaced on 09/04 * continue ortega for now, will need to follow up with Dr. Eden as outpt for possible removal * started tamsulosin, not sure if it'll be effective since he has had a TURP several years ago. 5. HTN: * stable * on amlodipine 6. VTE prophylaxis: SCDs Greater than 35 minutes of which greater than 50% was counseling the patient about his ALYSON with reviewing his data, consultation with nephrology. Code Visit Inpatient E&M: 66113 Subs Hosp L3
[2019-09-05 09:14] VITALS: BP 150/66; PULSE 70; RESP 18; TEMP 36.7; O2SAT 93
[2019-09-05] MEDS: amLODIPine 5 MG Tablet PO (09:18)
[2019-09-05] MEDS: Aspirin E.C. 81 MG Tablet PO (09:18)
[2019-09-05] MEDS: Pantoprazole Sodium 20 MG Tablet PO (09:18)
[2019-09-05] MEDS: guaiFENesin 600 MG Tablet PO (12:10)
--- NOTE | 2019-09-05 13:18 | NURSING ---
apparel embroidery digitizer, , oncall for Dr. Lester informed of consult via telephone.
[2019-09-05 14:47] VITALS: BP 136/56; PULSE 69; RESP 18; TEMP 37; O2SAT 93
[2019-09-05] MEDS: Lactated Ringers 1,000 ML 150 ML IV ×2 (14:50→23:01)
--- NOTE | 2019-09-05 15:29 | CON.PCM_ITS ---
Consultation - Renal PCP/ Referring MD: Requesting physician: [] Primary care physician: No Primary Care Phys Reason for Consultation:: alyson - History of Present Illness History of Present Illness: The patient is a 83 year old M with a past medical history of BPH GERD hypertension obstructive sleep apnea who presented with a chief complaint of right upper quadrant abdominal pain to the [place] [facility]. He was taken to ERCP by surgery. He attempted to void and had about 200 cc out and he retained about 800 cc. Apparently he had a TURP with Dr. Eden in the past for BPH. He said he saw Dr. Eden in the past last time in July and apparently his prostate was fine then per patient. Patient still has some abdominal bloating but no nausea vomiting or diarrhea. He is taking only ice chips for now. The last time he had nausea vomiting was on Saturday. Has no other complaints currently. He denies shortness of breath chest pain fever chills. He did not have dysuria hematuria prior to presentation and prior to Franklin catheter insertion. - Allergies Allergies: Allergies Penicillins Adverse Reaction (Verified 09/03/19 15:51) Hives - Current Medications Current Medications: Current Medications Amlodipine Besylate (Norvasc) 5 mg PO DAILY [facility] Last Admin: 09/05/19 09:18 Dose: 5 mg Documented by: Aspirin (Ecotrin) 81 mg PO WeSa@0800 [facility] Last Admin: 09/05/19 09:18 Dose: 81 mg Documented by: Atorvastatin Calcium (Lipitor) 20 mg PO QHS [facility] Last Admin: 09/04/19 22:22 Dose: 20 mg Documented by: Guaifenesin (Mucinex) 600 mg PO BID PRN PRN Reason: MUCOUS Last Admin: 09/05/19 12:10 Dose: 600 mg Documented by: Lactated Ringer's () 1,000 mls @ 150 mls/hr IV .Q6H40M [facility] Last Admin: 09/05/19 14:50 Dose: 150 mls/hr Documented by: Melatonin (Melatonin) 10 mg PO QHS [facility] Last Admin: 09/04/19 22:22 Dose: 10 mg Documented by: Morphine Sulfate () 1 mg IV Q2H PRN PRN PRN Reason: Pain Score 6-10/10 Ondansetron HCl (Zofran) 4 mg IV Q6H PRN PRN PRN Reason: NAUSEA Pantoprazole Sodium (Protonix) 20 mg PO DAILY [facility] Last Admin: 09/05/19 09:18 Dose: 20 mg Documented by: Sertraline HCl (Zoloft) 50 mg PO QHS [facility] Last Admin: 09/04/19 22:22 Dose: 50 mg Documented by: Sodium Chloride () 10 - 40 ml IV UD PRN PRN Reason: SALINE FLUSH Tamsulosin HCl (Flomax) 0.4 mg PO DAILY@1730 [facility] Last Admin: 09/04/19 18:03 Dose: 0.4 mg Documented by: - Past Medical History Past Medical History (Chronic Problems): Chronic Problems GERD (gastroesophageal reflux disease) (Chronic) HTN (hypertension) (Chronic) BPH (benign prostatic hyperplasia) (Chronic) - Past Surgical History Surgical History: TURP - Social History Smoking Status: Never smoker Alcohol: None Drugs: None - Family History Maternal History Items: Stroke Paternal History Items: Cancer - prostate Patient Problems: Active and Suspected Problems Choledocholithiasis (Acute) ALYSON (acute kidney injury) (Acute) Obstructive uropathy (Acute) - Physical Exam Vitals/I&O's: Vital Signs Temp Pulse Resp BP Pulse Ox 98.6 F 69 18 136/56 H 93 09/05/19 14:47 09/05/19 14:47 09/05/19 14:47 09/05/19 14:47 09/05/19 14:47 Oxygen Flow Rate (L/min) 2 Oxygen Delivery Method Room Air Weight: 79.515 kg Body Mass Index (BMI) 25.9 Intake and Output for Last 24 Hours 09/03/19 09/04/19 09/05/19 23:59 23:59 23:59 Intake Total 1000 / 1150 4647.50 / 4647.50 3530.00 / 3530.00 Output Total 750 / 1100 2750 / 2750 1850 / 1850 Balance 250 / 50 1897.50 / 1897.50 1680.00 / 1680.00 General: Alert, Oriented x3, Cooperative HEENT: Atraumatic, PERRLA, EOMI, Normocephalic Neck: Supple, No JVD, Negative Carotid Bruits Lungs: Clear to auscultation, Normal air movement Cardiovascular: Regular rate, No murmurs Abdomen: Bowel Sounds Present, Soft, Non Tender Extremities: No edema, Capillary Refill Less than 3 Seconds Skin: No rashes, No breakdown Musculoskeletal: No Tenderness to Palpation of Joints or Extremities Neurological: Cranial nerves II-XII grossly intact Psych/Mental Status: Normal Affect, Appropriate Microbiology Past 72 Hours 09/04/19 11:30 Mucosa - Nose Respiratory Panel (PCR) - Final Laboratory Results 09/04/19 17:20: Urine Creatinine 58.10 09/04/19 17:20: Ur Random Sodium 81 09/05/19 06:11: Sodium 143, Potassium 3.8, Chloride 113 H, Carbon Dioxide 23.0, Anion Gap 7, BUN 89 H, Creatinine 5.66 H, Estim Creat Clear Calc 10.06, Est GFR (MDRD) Af Amer 12 L, Est GFR (MDRD) Non-Af 10 L, BUN/Creatinine Ratio 15.7, Glucose 90, Calcium 7.8 L, Total Bilirubin 1.60 H, AST 76 H, ALT 94 H, Alkaline Phosphatase 413 H, Total Protein 5.9 L, Albumin 1.9 L, Globulin 4.0, Albumin/Globulin Ratio 0.5 L, Lipase 02789 H 09/05/19 06:11: WBC 8.4, RBC 3.84 L, Hgb 11.2 L, Hct 33.9 L, MCV 88.3, MCH 29.2, MCHC 33.0, RDW Std Deviation 46.5 H, RDW Coeff of Ezio 14.4, Plt Count 132 L, MPV 11.7, Neut % (Auto) Not Reportable, Absolute Neuts (auto) 5.7, Absolute Lymphs (auto) 2.02, Total Counted 100, Neutrophils % (Manual) 66, Band Neutrophils % 1, Lymphocytes % (Manual) 24, Monocytes % (Manual) 1, Eosinophils % (Manual) 2, Metamyelocytes % 6 H, Diff Path Review May foll, Platelet Estimate ADEQUATE, RBC Morphology NORM C+C Current Medications Amlodipine Besylate (Norvasc) 5 mg PO DAILY [facility] Last Admin: 09/05/19 09:18 Dose: 5 mg Documented by: Aspirin (Ecotrin) 81 mg PO WeSa@0800 [facility] Last Admin: 09/05/19 09:18 Dose: 81 mg Documented by: Atorvastatin Calcium (Lipitor) 20 mg PO QHS [facility] Last Admin: 09/04/19 22:22 Dose: 20 mg Documented by: Guaifenesin (Mucinex) 600 mg PO BID PRN PRN Reason: MUCOUS Last Admin: 09/05/19 12:10 Dose: 600 mg Documented by: Lactated Ringer's () 1,000 mls @ 150 mls/hr IV .Q6H40M [facility] Last Admin: 09/05/19 14:50 Dose: 150 mls/hr Documented by: Melatonin (Melatonin) 10 mg PO QHS [facility] Last Admin: 09/04/19 22:22 Dose: 10 mg Documented by: Morphine Sulfate () 1 mg IV Q2H PRN PRN PRN Reason: Pain Score 6-10/10 Ondansetron HCl (Zofran) 4 mg IV Q6H PRN PRN PRN Reason: NAUSEA Pantoprazole Sodium (Protonix) 20 mg PO DAILY [facility] Last Admin: 09/05/19 09:18 Dose: 20 mg Documented by: Sertraline HCl (Zoloft) 50 mg PO QHS [facility] Last Admin: 09/04/19 22:22 Dose: 50 mg Documented by: Sodium Chloride () 10 - 40 ml IV UD PRN PRN Reason: SALINE FLUSH Tamsulosin HCl (Flomax) 0.4 mg PO DAILY@1730 [facility] Last Admin: 09/04/19 18:03 Dose: 0.4 mg Documented by: Assessment/Plan All Active Problems Choledocholithiasis (Acute) ALYSON (acute kidney injury) (Acute) Obstructive uropathy (Acute) ALYSON likely w/ obstructive uropathy likely obstructive uropathy s/p Franklin catheter Renal cysts Hypertension Choledocholithiasis Gallstone pancreatitis Improvement in renal function with Franklin catheter continue Franklin catheter for and Saturday will request urology consult with Dr. Eden his urologist check UA Saturday we will need to request records from his primary care physician office to see his baseline serum creatinine Avoid nephrotoxins Pressure control continue current medications The above assessment and plan was discussed at length with the patient his family present at the bedside who voiced understanding and agrees to proceed with the plan as outlined above. They were given the opportunity to ask questions and stated that those were answered to his satisfaction. Thank you very much for allowing me to participate in the care of this patient. Please do not hesitate to call if you have any questions or concerns.
--- NOTE | 2019-09-05 15:42 | RAD_ITS ---
STUDY: X-RAY - ABDOMEN/PELVIS REASON FOR EXAM: Male, 83 years old. ABDOMINAL DISTENTION, POSSIBLE ILLEUS TECHNIQUE: 3 AP supine views of the abdomen and pelvis. COMPARISON: None. FINDINGS: Normal visualized lung bases. Gaseous distended loops of small and large bowel. Significant fecal retention in the right hemicolon. There appears to be a stent device in the right upper quadrant region. Unsure if this is a TIPS catheter. There is no demonstrated free abdominal air. The visualized liver, spleen and kidneys are grossly normal in size and morphology. Normal soft tissue structures. There are diffuse degenerative changes of the visualized lumbar spine. RAD/Abdomen Single View (Portable) IMPRESSION: Nonspecific bowel gas pattern with gaseous distended loops of small and large bowel throughout the abdomen and pelvis. Prominent fecal retention in the right hemicolon. Electronically Signed: Servando Miles DO at 16:16 EST Tel , Service support ,
[2019-09-05] MEDS: Fleet Enema 1 ML RECTAL (17:12)
[2019-09-05] MEDS: Tamsulosin HCl 0.4 MG Capsule PO (17:12)
[2019-09-05] MEDS: 0.9% Saline Lock 10 ML Syringe IV (17:13)
[2019-09-05 19:15] LABS: Bacteria 0 SEEN /hpf (None Seen); Mucous, Urine 0 SEEN /hpf (<or=2+)
[2019-09-05 19:22] LABS: Color, Urine Yellow (Yellow); Glucose, Dipstick Normal (Normal); Ketone-Dipstick Negative (Negative); Leukocyte Esterase-Dipstick 25 /ul (Negative); Nitrite-Dipstick Negative (Negative); Occult Blood-Urine 150 /ul (Negative); Protein-Dipstick Negative (Negative); Urine Bilirubin Dipstick Negative (Negative); Urine Clarity Sl. Cloudy (Clear); Urine Urobilinogen Normal (Normal)
[2019-09-05 19:35] LABS: Squamous Epithelial Cells - UA 0-5 SEEN /hpf (0-5); White Blood Cells 0-5 SEEN /hpf (0-5)
[2019-09-05 19:36] LABS: Red Blood Cells-Urine 25-50 SEEN /hpf (0-5)
[2019-09-05 21:56] VITALS: BP 147/93; PULSE 76; RESP 18; TEMP 36.6; O2SAT 93
[2019-09-05] MEDS: Atorvastatin Calcium 20 MG Tablet PO (21:58)
[2019-09-05] MEDS: Sertraline 50 MG Tablet PO (21:58)
[2019-09-05] MEDS: MELATONIN 10 MG TABLET PO (21:58)
[2019-09-05 22:10] VITALS: PULSE 76; RESP 18; O2SAT 93
[2019-09-06] VITALS (7 sets, daily range): BP systolic 145–152; BP diastolic 65–79; PULSE 69–90; RESP 18–93; TEMP 36.6–37.1; O2SAT 93–96
[2019-09-06] MEDS: Lactated Ringers 1,000 ML 150 ML IV ×3 (06:20→19:16)
[2019-09-06 07:15] LABS: ALB/GLOB Ratio 0.5 RATIO (0.9-2.4); AST(SGOT) 61 U/L (15-37); Alanine Aminotransfer ALT/SGPT 73 U/L (16-61); Albumin, Serum 1.8 g/dL (3.2-5.0); Alkaline Phosphatase 353 U/L (45-117); Anion Gap 8 (5-15); BUN 80 mg/dL (7-18); BUN/Creat Ratio 16.8 RATIO (10-20); Calcium,Total 7.7 mg/dL (8.5-10.1); Chloride 112 mmol/L (98-107); Creatinine, Serum 4.77 mg/dL (0.70-1.30); EST Glomerular Filtration Rate 13 mL/min (>60); Est Glom Filt Rate - Afr Amer 15 mL/min (>60); Estimated Creatinine Clearance 11.94 ml/min; Globulin 3.8 g/dL (2.2-4.2); Glucose 82 mg/dL (74-106); Lipase 3778 U/L (73-393); Potassium 3.6 mmol/L (3.5-5.1); Protein, Total 5.6 g/dL (6.4-8.2); Sodium Level 144 mmol/L (136-145)
--- NOTE | 2019-09-06 08:50 | PN.SURG_ITS ---
Patient Problems: Active and Suspected Problems Choledocholithiasis (Acute) ALYSON (acute kidney injury) (Acute) Obstructive uropathy (Acute) Subjective: Patient denies abdominal pain, creatinine is slowly improving just with the IV fluids, Franklin in place for retention - Physical Exam Vitals/I&O's: Vital Signs Temp Pulse Resp BP Pulse Ox 97.8 F 72 22 H 145/74 H 93 09/06/19 08:40 09/06/19 08:40 09/06/19 08:40 09/06/19 08:40 09/06/19 08:40 Oxygen Flow Rate (L/min) 2 Oxygen Delivery Method Room Air Weight: 175 lb 4.809 oz Body Mass Index (BMI) 25.9 Intake and Output for Last 24 Hours 09/04/19 09/05/19 09/06/19 23:59 23:59 23:59 Intake Total 4647.50 / 4647.50 4990.00 / 5030.00 1060 / 1060 Output Total 2750 / 2750 2550 / 3350 1500 / 1500 Balance 1897.50 / 1897.50 2440.00 / 1680.00 -440 / -440 General: Alert, Oriented x3, Cooperative, No apparent distress HEENT: Atraumatic Lungs: Normal air movement Cardiovascular: Regular rate Abdomen: Soft, Non Tender, Distended - Mild Microbiology Past 72 Hours 09/04/19 11:30 Mucosa - Nose Respiratory Panel (PCR) - Final Laboratory Results 09/05/19 18:50: Eos Smear Total Cells Pending 09/05/19 18:50: Urine Color Yellow, Urine Clarity Sl. Cloudy, Urine pH 6.0, Ur Specific Arnold 1.010, Urine Protein Negative, Urine Glucose (UA) Normal, Urine Ketones Negative, Urine Occult Blood 150 H, Urine Nitrite Negative, Urine Bilirubin Negative, Urine Urobilinogen Normal, Ur Leukocyte Esterase 25 H, Urine RBC 25-50 SEEN, Urine WBC 0-5 SEEN, Ur Squamous Epith Cells 0-5 SEEN, Urine Bacteria 0 SEEN, Urine Mucus 0 SEEN 09/06/19 05:18: Sodium 144, Potassium 3.6, Chloride 112 H, Carbon Dioxide 24.0, Anion Gap 8, BUN 80 H, Creatinine 4.77 H, Estim Creat Clear Calc 11.94, Est GFR (MDRD) Af Amer 15 L, Est GFR (MDRD) Non-Af 13 L, BUN/Creatinine Ratio 16.8, Glucose 82, Calcium 7.7 L, Total Bilirubin 1.40 H, AST 61 H, ALT 73 H, Alkaline Phosphatase 353 H, Total Protein 5.6 L, Albumin 1.8 L, Globulin 3.8, Albumin/Globulin Ratio 0.5 L, Lipase 3778 H Current Medications Amlodipine Besylate (Norvasc) 5 mg PO DAILY [facility] Last Admin: 09/05/19 09:18 Dose: 5 mg Documented by: Aspirin (Ecotrin) 81 mg PO WeSa@0800 [facility] Last Admin: 09/05/19 09:18 Dose: 81 mg Documented by: Atorvastatin Calcium (Lipitor) 20 mg PO QHS [facility] Last Admin: 09/05/19 21:58 Dose: 20 mg Documented by: Guaifenesin (Mucinex) 600 mg PO BID PRN PRN Reason: MUCOUS Last Admin: 09/05/19 12:10 Dose: 600 mg Documented by: Lactated Ringer's () 1,000 mls @ 150 mls/hr IV .Q6H40M [facility] Last Admin: 09/06/19 06:20 Dose: 150 mls/hr Documented by: Melatonin (Melatonin) 10 mg PO QHS [facility] Last Admin: 09/05/19 21:58 Dose: 10 mg Documented by: Morphine Sulfate () 1 mg IV Q2H PRN PRN PRN Reason: Pain Score 6-10/10 Ondansetron HCl (Zofran) 4 mg IV Q6H PRN PRN PRN Reason: NAUSEA Pantoprazole Sodium (Protonix) 20 mg PO DAILY [facility] Last Admin: 09/05/19 09:18 Dose: 20 mg Documented by: Sertraline HCl (Zoloft) 50 mg PO QHS [facility] Last Admin: 09/05/19 21:58 Dose: 50 mg Documented by: Sodium Chloride () 10 - 40 ml IV UD PRN PRN Reason: SALINE FLUSH Last Admin: 09/05/19 17:13 Dose: 10 ml Documented by: Tamsulosin HCl (Flomax) 0.4 mg PO DAILY@1730 [facility] Last Admin: 09/05/19 17:12 Dose: 0.4 mg Documented by: Medical Necessity - Tobacco Use Smoking Status: Never smoker Tobacco Use: Non-smoker Assessment/Plan All Active Problems Choledocholithiasis (Acute) ALYSON (acute kidney injury) (Acute) Obstructive uropathy (Acute) 83-year-old male status post ERCP for choledocholithiasis with stent and common bile duct as well as pancreatic duct, acute kidney injury 1. Okay for clears until midnight then only water after midnight till 8 AM then n.p.o. for a lap mireya Saturday afternoon by Dr. Ramos, no abdominal pain on exam, lipase trending down 2. ALYSON fattening improving 3. Franklin for urinary retention Callie Butler M.D. Pager: [phone] [facility] [address] [place] [address], [facility], [address] [place] [address] Office: [phone]
[2019-09-06] MEDS: 0.9% Saline Lock 10 ML Syringe IV (08:54)
--- NOTE | 2019-09-06 09:54 | PCM.PN.HOSP ---
Patient Problems: Active and Suspected Problems Choledocholithiasis (Acute) ALYSON (acute kidney injury) (Acute) Obstructive uropathy (Acute) Reason for Visit: pancreatitis Subjective: +BMs and flatus. Still with abdominal pain, minimal appetite. Vitals/I&O's: Vital Signs Temp Pulse Resp BP Pulse Ox 36.6 C 90 22 H 145/74 H 93 09/06/19 08:40 09/06/19 08:46 09/06/19 08:40 09/06/19 08:40 09/06/19 08:40 Oxygen Flow Rate (L/min) 2 Oxygen Delivery Method Room Air Weight: 79.515 kg Body Mass Index (BMI) 25.9 Intake and Output for Last 24 Hours 09/04/19 09/05/19 09/06/19 23:59 23:59 23:59 Intake Total 4647.50 / 4647.50 4990.00 / 5030.00 1060 / 1060 Output Total 2750 / 2750 2550 / 3350 1500 / 1500 Balance 1897.50 / 1897.50 2440.00 / 1680.00 -440 / -440 General: Alert, No apparent distress HEENT: Atraumatic, Normocephalic Oral: Moist Mucosa, No Gingival or Mucosal Lesions/ Ulcerations Neck: No Nodes, Trachea Midline Lungs: Clear to auscultation, Normal air movement, No rhonchi, No wheeze, No rales Cardiovascular: Regular rate, Regular Rhythm, Normal S1, Normal S2 Abdomen: Distended, - - high-pitched bowel sounds Extremities: No edema, No Calf Tenderness Skin: No rashes, No breakdown Psych/Mental Status: Normal Affect, Appropriate Microbiology Past 72 Hours 09/04/19 11:30 Mucosa - Nose Respiratory Panel (PCR) - Final Laboratory Results 09/05/19 18:50: Eos Smear Total Cells Pending 09/05/19 18:50: Urine Color Yellow, Urine Clarity Sl. Cloudy, Urine pH 6.0, Ur Specific Elwood 1.010, Urine Protein Negative, Urine Glucose (UA) Normal, Urine Ketones Negative, Urine Occult Blood 150 H, Urine Nitrite Negative, Urine Bilirubin Negative, Urine Urobilinogen Normal, Ur Leukocyte Esterase 25 H, Urine RBC 25-50 SEEN, Urine WBC 0-5 SEEN, Ur Squamous Epith Cells 0-5 SEEN, Urine Bacteria 0 SEEN, Urine Mucus 0 SEEN 09/06/19 05:18: Sodium 144, Potassium 3.6, Chloride 112 H, Carbon Dioxide 24.0, Anion Gap 8, BUN 80 H, Creatinine 4.77 H, Estim Creat Clear Calc 11.94, Est GFR (MDRD) Af Amer 15 L, Est GFR (MDRD) Non-Af 13 L, BUN/Creatinine Ratio 16.8, Glucose 82, Calcium 7.7 L, Total Bilirubin 1.40 H, AST 61 H, ALT 73 H, Alkaline Phosphatase 353 H, Total Protein 5.6 L, Albumin 1.8 L, Globulin 3.8, Albumin/Globulin Ratio 0.5 L, Lipase 3778 H Current Medications Amlodipine Besylate (Norvasc) 5 mg PO DAILY [facility] Last Admin: 09/05/19 09:18 Dose: 5 mg Documented by: Aspirin (Ecotrin) 81 mg PO WeSa@0800 [facility] Last Admin: 09/05/19 09:18 Dose: 81 mg Documented by: Atorvastatin Calcium (Lipitor) 20 mg PO QHS [facility] Last Admin: 09/05/19 21:58 Dose: 20 mg Documented by: Guaifenesin (Mucinex) 600 mg PO BID PRN PRN Reason: MUCOUS Last Admin: 09/05/19 12:10 Dose: 600 mg Documented by: Lactated Ringer's () 1,000 mls @ 150 mls/hr IV .Q6H40M [facility] Last Admin: 09/06/19 06:20 Dose: 150 mls/hr Documented by: Melatonin (Melatonin) 10 mg PO QHS [facility] Last Admin: 09/05/19 21:58 Dose: 10 mg Documented by: Morphine Sulfate () 1 mg IV Q2H PRN PRN PRN Reason: Pain Score 6-10/10 Ondansetron HCl (Zofran) 4 mg IV Q6H PRN PRN PRN Reason: NAUSEA Pantoprazole Sodium (Protonix) 20 mg PO DAILY [facility] Last Admin: 09/05/19 09:18 Dose: 20 mg Documented by: Sertraline HCl (Zoloft) 50 mg PO QHS [facility] Last Admin: 09/05/19 21:58 Dose: 50 mg Documented by: Sodium Chloride () 10 - 40 ml IV UD PRN PRN Reason: SALINE FLUSH Last Admin: 09/06/19 08:54 Dose: 10 ml Documented by: Tamsulosin HCl (Flomax) 0.4 mg PO DAILY@1730 [facility] Last Admin: 09/05/19 17:12 Dose: 0.4 mg Documented by: STROKE Vital Signs/Narrative: Vital Signs Temp Pulse Resp BP Pulse Ox 09/06/19 08:46 90 09/06/19 08:40 36.6 C 72 22 H 145/74 H 93 Medical Necessity - Tobacco Use Smoking Status: Never smoker Tobacco Use: Non-smoker Assessment/Plan All Active Problems Choledocholithiasis (Acute) ALYSON (acute kidney injury) (Acute) Obstructive uropathy (Acute) 1. choledocholithiasis improved s/p ERCP on 09/[address] Ramos on clears 2. Gallstone pancreatitis 2/2 above +/- worsening from the ERCP improving, but still elevated clinically doing well now. follow up lipase advance diet to clears continue IVF plan for Lap mireya on 09/07 3. ALYSON FENa 6.48 Maybe post-obstructive +/- ATN Continue ortgea Consult nephrology US showed no hydronephrosis/hydroureter IVF reviewed labs with patient using [facility]: Cr 01/2019 was 1.21, 08/31/2019 was 4.84 and then the labs during this admission hold nephrotoxic meds 4. Urinary retention Ortega removed then replaced on 09/04 continue ortega for now, will need to follow up with Dr. Eden as outpt for possible removal started tamsulosin, not sure if it'll be effective since he has had a TURP several years ago. on consult 5. Constipation still distended with high-pitched BS had BMs with enema advance diet as tolerated 6. HTN: stable on amlodipine 6. VTE prophylaxis: SCDs Code Visit Inpatient E&M: 86534 Subs Hosp L2
[2019-09-06] MEDS: amLODIPine 5 MG Tablet PO (10:11)
[2019-09-06] MEDS: Pantoprazole Sodium 20 MG Tablet PO (10:11)
[2019-09-06] MEDS: guaiFENesin 600 MG Tablet PO (11:43)
[2019-09-06] MEDS: Tamsulosin HCl 0.4 MG Capsule PO (16:56)
[2019-09-06] MEDS: Sertraline 50 MG Tablet PO (20:15)
[2019-09-06] MEDS: Atorvastatin Calcium 20 MG Tablet PO (20:15)
[2019-09-06] MEDS: MELATONIN 10 MG TABLET PO (20:16)
[2019-09-07] VITALS (26 sets, daily range): BP systolic 120–159; BP diastolic 60–80; PULSE 63–86; RESP 13–42; TEMP 36.5–37.1; O2SAT 92–98; BMI 25.9
[2019-09-07] MEDS: Lactated Ringers 1,000 ML 150 ML IV (01:52)
[2019-09-07 06:12] LABS: ALB/GLOB Ratio 0.4 RATIO (0.9-2.4); AST(SGOT) 59 U/L (15-37); Alanine Aminotransfer ALT/SGPT 64 U/L (16-61); Albumin, Serum 1.7 g/dL (3.2-5.0); Alkaline Phosphatase 315 U/L (45-117); Anion Gap 8 (5-15); BUN 64 mg/dL (7-18); Calcium,Total 7.6 mg/dL (8.5-10.1); Chloride 110 mmol/L (98-107); Creatinine, Serum 3.77 mg/dL (0.70-1.30); EST Glomerular Filtration Rate 16 mL/min (>60); Est Glom Filt Rate - Afr Amer 20 mL/min (>60); Estimated Creatinine Clearance 15.11 ml/min; Glucose 89 mg/dL (74-106); Lipase 510 U/L (73-393); Potassium 3.2 mmol/L (3.5-5.1); Protein, Total 5.7 g/dL (6.4-8.2); Sodium Level 142 mmol/L (136-145)
--- NOTE | 2019-09-07 06:49 | NURSING ---
Addendum entered by Christin Angel 09/07/19 06:50: Message left 09/07 @ 0645 Original Note: Left message on Dr Eden cell phone to notify him that he has a consult for this Pt for urinary retention.
[2019-09-07] MEDS: guaiFENesin 600 MG Tablet PO (07:21)
--- NOTE | 2019-09-07 08:16 | PCM.PN.SRG ---
Patient Problems: Active and Suspected Problems Choledocholithiasis (Acute) ALYSON (acute kidney injury) (Acute) Obstructive uropathy (Acute) Subjective: Patient reports some right upper quadrant pain. No epigastric pain. No nausea or vomiting. - Physical Exam Vitals/I&O's: Vital Signs Temp Pulse Resp BP Pulse Ox 98.1 F 72 18 148/80 H 94 09/07/19 01:47 09/07/19 01:47 09/07/19 01:59 09/07/19 01:47 09/07/19 01:59 Oxygen Flow Rate (L/min) 2 Oxygen Delivery Method CPAP Weight: 175 lb 4.809 oz Body Mass Index (BMI) 25.9 Intake and Output for Last 24 Hours 09/05/19 09/06/19 09/07/19 23:59 23:59 23:59 Intake Total 4990.00 / 5030.00 3677.5 / 3777.5 1130 / 1130 Output Total 2550 / 3350 2350 / 3050 1700 / 1700 Balance 2440.00 / 1680.00 1327.5 / 727.5 -570 / -570 General: Alert, Oriented x3 Neck: No JVD Lungs: Normal air movement Cardiovascular: Regular rate, Regular Rhythm Abdomen: Soft, Distended Microbiology Past 72 Hours 09/04/19 11:30 Mucosa - Nose Respiratory Panel (PCR) - Final Laboratory Results 09/07/19 04:58: Sodium 142, Potassium 3.2 L, Chloride 110 H, Carbon Dioxide 24.0, Anion Gap 8, BUN 64 H, Creatinine 3.77 H, Estim Creat Clear Calc 15.11, Est GFR (MDRD) Af Amer 20 L, Est GFR (MDRD) Non-Af 16 L, BUN/Creatinine Ratio 17.0, Glucose 89, Calcium 7.6 L, Total Bilirubin 1.30 H, AST 59 H, ALT 64 H, Alkaline Phosphatase 315 H, Total Protein 5.7 L, Albumin 1.7 L, Globulin 4.0, Albumin/Globulin Ratio 0.4 L, Lipase 510 H Current Medications Amlodipine Besylate (Norvasc) 5 mg PO DAILY [facility] Last Admin: 09/06/19 10:11 Dose: 5 mg Documented by: Aspirin (Ecotrin) 81 mg PO WeSa@0800 [facility] Last Admin: 09/05/19 09:18 Dose: 81 mg Documented by: Atorvastatin Calcium (Lipitor) 20 mg PO QHS [facility] Last Admin: 09/06/19 20:15 Dose: 20 mg Documented by: Guaifenesin (Mucinex) 600 mg PO BID PRN PRN Reason: MUCOUS Last Admin: 09/07/19 07:21 Dose: 600 mg Documented by: Lactated Ringer's () 1,000 mls @ 150 mls/hr IV .Q6H40M [facility] Last Admin: 09/07/19 01:52 Dose: 150 mls/hr Documented by: Clindamycin Phosphate 900 mg/ (Dextrose) 106 mls @ 150 mls/hr IV SEND TO OR W/PATIENT ONE Stop: 09/07/19 13:42 Melatonin (Melatonin) 10 mg PO QHS [facility] Last Admin: 09/06/19 20:16 Dose: 10 mg Documented by: Morphine Sulfate () 1 mg IV Q2H PRN PRN PRN Reason: Pain Score 6-10/10 Ondansetron HCl (Zofran) 4 mg IV Q6H PRN PRN PRN Reason: NAUSEA Pantoprazole Sodium (Protonix) 20 mg PO DAILY [facility] Last Admin: 09/06/19 10:11 Dose: 20 mg Documented by: Sertraline HCl (Zoloft) 50 mg PO QHS [facility] Last Admin: 09/06/19 20:15 Dose: 50 mg Documented by: Sodium Chloride () 10 - 40 ml IV UD PRN PRN Reason: SALINE FLUSH Last Admin: 09/06/19 08:54 Dose: 10 ml Documented by: Tamsulosin HCl (Flomax) 0.4 mg PO DAILY@1730 [facility] Last Admin: 09/06/19 16:56 Dose: 0.4 mg Documented by: Medical Necessity - Tobacco Use Smoking Status: Never smoker Tobacco Use: Non-smoker Assessment/Plan All Active Problems Choledocholithiasis (Acute) ALYSON (acute kidney injury) (Acute) Obstructive uropathy (Acute) 83-year-old male with choledocholithiasis and pancreatitis 1. Patient's lipase is now down to 500. He is not having any epigastric pain or nausea or vomiting. He tolerated clear liquid diet. He is still having some abdominal distention. He complains of right upper quadrant pain. Plan for laparoscopic cholecystectomy today. 2. I discussed the procedure in detail with the patient. I discussed the risks, benefits, and alternatives of the procedure. I discussed the risks including but not limited to bleeding, infection, injury to surrounding organs such as the liver, bile duct, bowels. I did discuss the possibility of having to convert to an open procedure as well as the possibility that if any injuries occurred this may necessitate further surgery at a tertiary care center. Octaviano Ramos MD Pager: [facility] [address] [place] [address] [address] [place] [address] Office:
--- NOTE | 2019-09-07 08:46 | EKG12_ITS ---
Test Reason : PREOP Blood Pressure : / mmHG Vent. Rate : 073 BPM Atrial Rate : 073 BPM P-R Int : 210 ms QRS Dur : 094 ms QT Int : 418 ms P-R-T Axes : 041 -23 017 degrees QTc Int : 460 ms Sinus rhythm with 1st degree A-V block Otherwise normal ECG Confirmed by ANDREA HERNANDES, LENY ([id number]), medical editor WILBERT MONZON ([id number]) on 09/08/2019 12:18:39 PM Referred By: Octaviano Ramos Confirmed By:LENY MENDEZ MD
[2019-09-07] MEDS: amLODIPine 5 MG Tablet PO (08:48)
[2019-09-07] MEDS: Pantoprazole Sodium 20 MG Tablet PO (08:48)
--- NOTE | 2019-09-07 10:43 | PN_ITS ---
Patient Problems: Active and Suspected Problems Choledocholithiasis (Acute) ALYSON (acute kidney injury) (Acute) Obstructive uropathy (Acute) Reason for Visit: Follow-up choledocholithiasis, Gallstone pancreatitis, Subjective: Patient is an 83-year-old gentleman admitted with right upper quadrant abdominal pain found to have choledocholithiasis underwent ERCP on 09/03/[address] Ramos. Subsequently developed acute pancreatitis. Plan is for patient to undergo laparoscopic cholecystectomy on 09/07/2019. Objective: GENERAL: cooperative ill-looking HEENT: Atraumatic; EYES; Anicteric, Normal Conjunctiva NECK; supple, normal thyroid, RESPIRATORY: Diminished to auscultation CARDIOVASCULAR: Regular S1 S2, GI: Slightly distended with right upper quadrant abdominal pain : No Renal angle tenderness; EXTREMITIES: No edema, no clubbing, MUSCULOSKELETAL: no muscle waisting NEURO: Awake; no lateralizing signs. SKIN: No Rash PSYCH; Flat affect Vitals/I&O's: Vital Signs Temp Pulse Resp BP Pulse Ox 98.0 F 71 18 142/69 H 94 09/07/19 08:41 09/07/19 08:41 09/07/19 08:41 09/07/19 08:41 09/07/19 08:41 Oxygen Flow Rate (L/min) 2 Oxygen Delivery Method Room Air Weight: 79.515 kg Body Mass Index (BMI) 25.9 Intake and Output for Last 24 Hours 09/05/19 09/06/19 09/07/19 23:59 23:59 23:59 Intake Total 4990.00 / 5030.00 3677.5 / 3777.5 1130 / 1130 Output Total 2550 / 3350 2350 / 3050 1700 / 1700 Balance 2440.00 / 1680.00 1327.5 / 727.5 -570 / -570 Microbiology Past 72 Hours 09/04/19 11:30 Mucosa - Nose Respiratory Panel (PCR) - Final Laboratory Results 09/07/19 04:58: Sodium 142, Potassium 3.2 L, Chloride 110 H, Carbon Dioxide 24.0, Anion Gap 8, BUN 64 H, Creatinine 3.77 H, Estim Creat Clear Calc 15.11, Est GFR (MDRD) Af Amer 20 L, Est GFR (MDRD) Non-Af 16 L, BUN/Creatinine Ratio 17.0, Glucose 89, Calcium 7.6 L, Total Bilirubin 1.30 H, AST 59 H, ALT 64 H, Alkaline Phosphatase 315 H, Total Protein 5.7 L, Albumin 1.7 L, Globulin 4.0, Albumin/Globulin Ratio 0.4 L, Lipase 510 H Current Medications Amlodipine Besylate (Norvasc) 5 mg PO DAILY [facility] Last Admin: 09/07/19 08:48 Dose: 5 mg Documented by: Aspirin (Ecotrin) 81 mg PO WeSa@0800 [facility] Last Admin: 09/05/19 09:18 Dose: 81 mg Documented by: Atorvastatin Calcium (Lipitor) 20 mg PO QHS [facility] Last Admin: 09/06/19 20:15 Dose: 20 mg Documented by: Guaifenesin (Mucinex) 600 mg PO BID PRN PRN Reason: MUCOUS Last Admin: 09/07/19 07:21 Dose: 600 mg Documented by: Clindamycin Phosphate 900 mg/ (Dextrose) 106 mls @ 150 mls/hr IV SEND TO OR W/PATIENT ONE Stop: 09/07/19 13:42 Potassium Chloride () 10 meq in 100 mls @ 100 mls/hr IV BOLUS Q1H [facility] Stop: 09/07/19 14:14 Melatonin (Melatonin) 10 mg PO QHS [facility] Last Admin: 09/06/19 20:16 Dose: 10 mg Documented by: Morphine Sulfate () 1 mg IV Q2H PRN PRN PRN Reason: Pain Score 6-10/10 Ondansetron HCl (Zofran) 4 mg IV Q6H PRN PRN PRN Reason: NAUSEA Pantoprazole Sodium (Protonix) 20 mg PO DAILY [facility] Last Admin: 09/07/19 08:48 Dose: 20 mg Documented by: Sertraline HCl (Zoloft) 50 mg PO QHS [facility] Last Admin: 09/06/19 20:15 Dose: 50 mg Documented by: Sodium Chloride () 10 - 40 ml IV UD PRN PRN Reason: SALINE FLUSH Last Admin: 09/06/19 08:54 Dose: 10 ml Documented by: Tamsulosin HCl (Flomax) 0.4 mg PO DAILY@1730 [facility] Last Admin: 09/06/19 16:56 Dose: 0.4 mg Documented by: STROKE Vital Signs/Narrative: Vital Signs Temp Pulse Resp BP Pulse Ox 09/07/19 08:41 98.0 F 71 18 142/69 H 94 Medical Necessity - Tobacco Use Smoking Status: Never smoker Tobacco Use: Non-smoker Assessment/Plan All Active Problems Choledocholithiasis (Acute) ALYSON (acute kidney injury) (Acute) Obstructive uropathy (Acute) Patient is an 83-year-old gentleman admitted with right upper quadrant abdominal pain found to have choledocholithiasis underwent ERCP on 09/03/[address] Ramos. Subsequently developed acute pancreatitis. Plan is for patient to undergo laparoscopic cholecystectomy on 09/07/2019. 1. Gallstone pancreatitis. ?Patient presented with right upper quadrant abdominal pain found to have choledocho cholelithiasis underwent ERCP on 09/03/2019. Subsequently developed gallstone pancreatitis which did worsen ERCP. General surgery has been on consult. Plans for patient to undergo laparoscopic cholecystectomy on 09/07/2019 2. Acute urinary retention ?Patient had a Franklin catheter placed consult placed to Dr. Vero bains with urology, patient started on Flomax 3. Acute kidney injury ?Do suspect obstructive uropathy patient creatinine from 619 was 1.21, on 08/31/2019 was 4.84. 4. Constipation Treated symptomatically 5. Hypertension ~ blood pressure controlled, home medications continued with dose adjustment as needed 6. Dyslipidemia ~patient is on statin therapy, continued at home dose 7. Depression ?Patient is on SSRI 8. DVT Prophylaxis ?SCDs for now with plans to initiate chemoprophylaxis following patient procedure Code Visit Inpatient E&M: 31749 Subs Hosp L2
[2019-09-07] MEDS: Potassium Chloride 10mEq/100mL 10 MEQ/100 ML IV.SOLN. 100 MEQ IV BOLUS ×4 (11:24→15:52)
[2019-09-07 12:21] LABS: Pathologist Review Reviewed
--- NOTE | 2019-09-07 12:30 | CON.PCM_ITS ---
Reason for Consult Date of Consultation: 09/07/19 Reason for Consultation: Retention of urine History of Present Illness: The patient is a 83 year old male with a history of BPH and obstruction had a TURP long time ago also had laser surgery long time ago by Dr. Wilson and once or I been seeing the patient since then he has chronic retention of urine with postvoid residuals running between 304 =400 cc when I see him in the office. Recently was admitted to the hospital recent acute illness apparently he can have his gallbladder removed. Currently has a catheter in place because he could not urinate also his creatinine is elevated multifactorial recent ultrasound with no hydronephrosis Past Medical History Past Medical History (Chronic Problems): Chronic Problems GERD (gastroesophageal reflux disease) (Chronic) HTN (hypertension) (Chronic) BPH (benign prostatic hyperplasia) (Chronic) Allergies Penicillins Adverse Reaction (Verified 09/03/19 15:51) Hives Home Medications: Ambulatory Orders Medication Instructions Recorded Amlodipine Besylate 5 mg PO DAILY 09/03/19 Ascorbic Acid [Vitamin C] 1,000 mg PO DAILY 09/03/19 Aspirin [Aspir 81] 81 mg PO WESA 09/03/19 Benazepril HCl 10 mg PO DAILY 09/03/19 Cod Liver Oil 118 ml PO DAILY 09/03/19 Colchicine [Colcrys] 0.6 mg PO BID PRN 09/03/19 Guaifenesin [Mucinex] 600 mg PO BID PRN 09/03/19 Lactobacillus Acidophilus 1 ea PO BID 09/03/19 [Acidophilus] Lutein 40 mg PO DAILY 09/03/19 Meclizine HCl 12.5 mg PO Q6H PRN PRN 09/03/19 Melatonin/Pyridoxine [Melatonin 5 2 ea PO QHS 09/03/19 mg Tablet] Zillah-3 Fatty Acids/Fish Oil [Fish 1 cap PO DAILY 09/03/19 Oil 1,000 mg Capsule] Omeprazole 20 mg PO DAILY 09/03/19 Rosuvastatin Calcium 10 mg PO DAILY 09/03/19 Sertraline HCl 50 mg PO QHS 09/03/19 Vit A/Vit C/Vit E/Zinc/Copper 1 dose PO BID 09/03/19 [Preservision Areds Softgel] Surgical History: TURP Psychiatric History: Depression Lives: Spouse/ Significant Other Smoking Status: Never smoker Tobacco Use: Non-smoker Alcohol: None Drugs: None - *Family History Maternal History Items: Stroke Paternal History Items: Cancer - prostate Review of Systems Constitutional: Denies: Chills, Fever, Weight Change HEENT: Denies: Head Aches, Sinus Congestion, Sinus Drainage Cardiovascular: Denies: Chest Pain, Palpitations Respiratory: Denies: Cough, Shortness of breath at rest, Sputum production Gastrointestinal: Denies: Abdominal Pain, Nausea, Vomiting Genitourinary: Denies: Dysuria Musculoskeletal: Denies: Joint Pain, Joint Tenderness Skin: Denies: Rash, Wounds Neurological: Denies: Numbness, Tingling, Focal weakness Psychiatric: Denies: Anxiety, Depression, Homicidal Ideations, Suicidal Ideations Hematologic/ Lymphatic: Denies: Easy Bruising, Easy Bleeding Physical Exam - Physical Exam Vital Signs Temp 97.7 F L 09/07/19 11:24 Pulse 74 09/07/19 11:24 Resp 18 09/07/19 08:41 BP 151/77 H 09/07/19 11:24 Pulse Ox 92 09/07/19 11:30 Intake & Output 09/05/19 09/06/19 09/07/19 23:59 23:59 23:59 Intake Total 4990.00 / 5030.00 3677.5 / 3777.5 1130 / 1130 Output Total 2550 / 3350 2350 / 3050 1700 / 1700 Balance 2440.00 / 1680.00 1327.5 / 727.5 -570 / -570 Weight: 79.515 kg 79.515 kg Intake: Oral 1110 / 1150 760 / 860 140 / 140 Intake, IV Amount 3880.00 / 3880.00 2917.5 / 2917.5 990 / 990 Lactated Ringers 1,000 ML @ 150 3880.00 / 3880.00 2917.5 / 2917.5 990 / 990 mls/hr IV .Q6H40M [facility] Rx#: [id number] Output: Urine 2550 / 3350 2350 / 3050 1700 / 1700 Other: Number of Bowel Movements 1 2 General: Alert, Oriented x3 HEENT: Atraumatic Oral: Moist Mucosa Neck: Supple Lungs: Normal air movement Cardiovascular: Regular rate Abdomen: Soft, Obese Rectal: Exam deferred Microbiology Past 72 Hours 09/04/19 11:30 Respiratory Panel (PCR) - Final Mucosa - Nose Laboratory Tests Past 24 Hrs 09/05/19 09/07/19 06:11 04:58 Diff Path Review Reviewed Sodium 142 Potassium 3.2 L Chloride 110 H Carbon Dioxide 24.0 Anion Gap 8 BUN 64 H Creatinine 3.77 H Estim Creat Clear Calc 15.11 Est GFR (MDRD) Af Amer 20 L Est GFR (MDRD) Non-Af 16 L BUN/Creatinine Ratio 17.0 Glucose 89 Calcium 7.6 L Total Bilirubin 1.30 H AST 59 H ALT 64 H Alkaline Phosphatase 315 H Total Protein 5.7 L Albumin 1.7 L Globulin 4.0 Albumin/Globulin Ratio 0.4 L Lipase 510 H Assessment/Plan All Active Problems Choledocholithiasis (Acute) ALYSON (acute kidney injury) (Acute) Obstructive uropathy (Acute) . 83-year-old male presents the hospital with acute illness is can have his gallbladder removed had acute renal insufficiency, recent ultrasound with no hydronephrosis in his kidneys he does have chronic retention in the bladder but this is chronic from a stretched out bladder long time ago. Currently has a catheter in place because he was not able to urinate. Recommend continue Flomax 0.4 mg daily. After surgical procedures done and recovers we can remove the catheter for voiding trial. If he is able to urinate then he can go home with a catheter. I would expect that he would have high postvoid residuals as he is chronically with high residuals he was not able to urinate at all the no need to go with home with a catheter he can follow-up with me in the office call me with questions.
--- NOTE | 2019-09-07 14:06 | PCM.PN.BLA ---
Progress Note went in to see patient. in procedure STROKE Vital Signs/Narrative: Vital Signs Temp Pulse BP Pulse Ox 09/07/19 11:30 92 09/07/19 11:24 97.7 F L 74 151/77 H 92
--- NOTE | 2019-09-07 15:00 | RAD_ITS ---
CLINICAL HISTORY: Male, 83 years old. Pancreatitis and choledocholithiasis PROCEDURE: CHOLANGIOGRAM - intraoperative Technique: Intraoperative ERCP was performed by operating surgeon FINDINGS: Intraoperative cholangiogram was performed during cholecystectomy utilizing fluoroscopic guidance. For more complete information recommend correlation with surgical notes RAD/Cholangiogram/ O R,Initial IMPRESSION: Fluoroscopic guided intraoperative cholangiogram Electronically Signed: Epi Babcock MD at 16:12 EST , Service support ,
[2019-09-07] MEDS: Bupiv/Epi 0.25% 30 ML Vial (15:49)
--- NOTE | 2019-09-07 16:23 | OP.PCM_ITS ---
Problem List (1) Choledocholithiasis Status: Acute Report of Operation Date of Procedure: 09/07/19 Pre-Operative Diagnosis: Choledocholithiasis and pancreatitis Post-Operative Diagnosis: Same Surgery/Procedure Performed:: Laparoscopic cholecystectomy with cholangiogram Specimen's removed: Gallbladder and contents Description of Procedure: After obtaining informed consent patient was brought back to the operating room. General anesthesia was induced. The abdomen was prepped and draped in usual sterile fashion. A small midline incision was made superior to the umbilicus and deepened to the level of fascia. The fascia was elevated and incised. Next the peritoneum was elevated and incised in the same fashion. Finger sweep was performed and the Dan trocar was placed into the abdomen. The balloon was inflated. The abdomen was inflated to 15 mmHg. Next a camera was introduced into the abdomen and the abdomen was inspected. Next under direct visualization three 5-mm ports were placed one subxiphoid and 2 subcostal. Next the gallbladder was elevated and retracted toward the right shoulder. The peritoneum was stripped from the gallbladder. The infundibulum was located and retracted laterally. Next the triangle of Calot was dissected and the cystic duct and cystic artery were identified. Cholangiograms were performed. The Rodriguez clamp was used to clamp across the infundibulum and the catheter needle was inserted into the gallbladder. Under fluoroscopy contrast was instilled into the gallbladder and the common duct, cystic duct as well as proximal hepatic ducts were identified. There was good filling of the duodenum. There were no filling defects noted in the common bile duct. The clamp was removed as well as the needle and the infundibulum was grasped once more. Three hemolock clips were placed across the cystic duct. The cystic duct was then divided leaving 2 clips on the stump. The cystic artery was clipped and divided in the same fashion. The hook cautery was then used to take the gallbladder off of the gallbladder bed. Hemostasis was obtained using argon beam. Gallbladder fossa was irrigated and no active bleeding or bile leakage was noted. Surgicel powder was sprayed on the gallbladder fossa. Next the camera was introduced in the subxiphoid port. An Endopouch bag was placed through the umbilical port and the gallbladder was placed into it. The gallbladder was then removed through the umbilical incision. The camera was then reinserted through the umbilical port. The gallbladder fossa was inspected once more and noted to be hemostatic with no leaking bile. The abdomen was suctioned dry. The 5 mm ports were removed under direct visualization. The umbilical port was then removed and the air was removed from the abdomen. Next using an 0 Vicryl suture the umbilical fascia was closed in a [id number] fashion. The umbilical port site was irrigated local anesthetic was administered to all the incisions. All the incisions were closed with interrupted subcuticular 4-0 Monocryl sutures followed by Steri- Strips and dressings. The patient was awoken and taken to PACU in stable condition. - Admit VTE Documentation VTE Mechan Device Prophylaxis: SCD's
--- NOTE | 2019-09-07 17:00 | RAD_ITS ---
STUDY: X-RAY CHEST REASON FOR EXAM: Male, 83 years old. Shortness of breath TECHNIQUE: Single AP portable view of the chest. COMPARISON: 03/04/2012 FINDINGS: There are superimposed monitor leads. There is a more shallow inspiratory level on current examination, with compression of the dependent parenchyma left greater than right, mild left greater than right opacification of the costophrenic angles. There is no demonstrated pleural abnormality. Normal size heart. Normal mediastinum and odette. Normal visualized pulmonary arteries. Normal visualized aortic arch and descending thoracic aorta. There are diffuse degenerative changes of the visualized thoracic spine. There is degenerative osteoarthritis of the bilateral shoulders. Stable mild chest wall deformity right lateral hemithorax. There is no demonstrated abnormality of the visualized soft tissue structures of the upper abdomen. RAD/Chest 1 View (Portable) IMPRESSION: Possible atelectasis and/or early infiltrate left base, mild pleural thickening in the costophrenic angles. Findings exaggerated by low lung volume. Other nonacute findings as outlined above. Electronically Signed: No Quispe MD at 0:38 EST , Service support ,
--- NOTE | 2019-09-07 18:22 | CCHN_ITS ---
Hospitalist Note Patient was seen urgently in PACU when he got respiratory distress. Patient had lap mireya done. Patient was tachypneic, respiratory rate 24, heart rate 65 blood pressure 145/65. Patient was put on patients on CPAP on 4 L of oxygen currently 94% on 2 and half liters of oxygen. Patient anesthetic medications were bupivacaine/epinephrine, fentanyl, rocuronium and propofol. In summary, patient is 83-year-old gentleman with history of GERD, BPH, hypertension and obstructive sleep apnea was admitted with right upper quadrant abdominal pain. Patient was found to have ALYSON with BUN/creatinine 106/6.85 and urine about 800 mL retention and music therapist and urologist were consulted. Patient had a history of BPH and had TURP in the past. Patient further said he had PFT earlier about a month or 2 months ago but I do not see any report. Patient had ERCP on 09/03 2019 for gallstone pancreatitis. On exam Lungs air entry diminished in left lung base. No crepitation/rhonchi. On CPAP Heart: S1-S2 regular Abdomen: Mildly distended. Tender, lap mireya ports dressing is dry. Bowel sounds absent Extremities: Mild edema. : Intake output 2.6/2.5; total positive fluid balance 6 L. Patient has Franklin catheter for retention. 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 Acute respiratory distress, etiology unclear possible related to fluid overload: Patient is being transferred to ICU from PACU. Lasix 40 mg IV 1 dose ordered. Repeat labs CBC, CMP, troponin, magnesium and EKG. Chest x-ray was done in PACU and independently reviewed. Shows left lung base opacity possible effusion. Incentive spirometry, chest physiotherapy for bronchopulmonary hygiene. Log Getter consult. 2. Acute kidney injury with urinary retention: Patient serial BUN/creatinine are improving. Carry Out Clerk And Shelf Stocker and urologist on board. 3. Gallstone pancreatitis: Lap mireya. Status post ERCP. Discussed with Dr. Ramos. Informed her about respiratory distress. Total time of the visit including total time spent in counseling or coordination of care, (more than 50% of the total time, spent in obtaining medical information from nurses and other ancillary care providers), discussion with patient's and sons near the bedside, review of labs and imaging is 40 minutes Code Visit Procedures: [id number] Prolonged Physician INPT
--- NOTE | 2019-09-07 18:29 | NURSING ---
REPORT CALLED TO ICU
--- NOTE | 2019-09-07 18:39 | EKG12_ITS ---
Test Reason : POST SURGICAL Blood Pressure : / mmHG Vent. Rate : 075 BPM Atrial Rate : 075 BPM P-R Int : 210 ms QRS Dur : 094 ms QT Int : 434 ms P-R-T Axes : 020 -22 000 degrees QTc Int : 484 ms Sinus rhythm with 1st degree A-V block Prolonged QT Abnormal ECG When compared with ECG of 07-SEP-2019 09:50, No significant change was found Confirmed by ANDREA HERNANDES, LENY ([id number]), scientific publications editor HARMAN FONSECA ([id number]) on 09/15/2019 8:49:40 AM Referred By: Octaviano Ramos Confirmed By:LENY MENDEZ MD
[2019-09-07] MEDS: Furosemide 40 MG/4 ML Vial IV (19:43)
[2019-09-07] MEDS: Tamsulosin HCl 0.4 MG Capsule PO (19:43)
[2019-09-07] MEDS: 0.9% Saline Lock 10 ML Syringe IV (19:44)
[2019-09-07 19:59] LABS: Absolute Lymphocyte Count 0.53 X10^3/uL (0.83-4.51); Absolute Neutrophil Count 16.5 X10^3/uL (2.0-7.7); Basophil# 0.05 X10^3/uL; Basophil% 0.3 % (0-1); Eosinophil# 0.02 X10^3/uL; Eosinophils% 0.1 % (0-5); Hematocrit 37.5 % (40-54); Hemoglobin 12.1 g/dL (13.0-16.5); Lymphocyte # 0.53 X10^3/ul (4.0); Mean Corp Hgb Conc 32.3 g/dL (32-36); Mean Corpuscular Volume 89.9 fL (80-94); Mean Platelet Vol. 10.9 fl (6.2-12.0); Monocyte# 0.17 X10^3/uL; NRBC Flagged by Analyzer 0 % (0-5); Neutrophil % 92.2 % (47-70); POSITIVE DIFFERENTIAL YES; Platelet Count 262 K/mm3 (150-450); RBC Distribution Width SD 46.1 fl (35.1-43.9); Red Blood Count 4.17 M/mm3 (4.6-6.2); White Blood Count 17.9 K/mm3 (4.4-11.0)
[2019-09-07 20:26] LABS: Differential Indicated SCAN CRITERIA MET
[2019-09-07 20:44] LABS: ALB/GLOB Ratio 0.4 RATIO (0.9-2.4); AST(SGOT) 145 U/L (15-37); Alanine Aminotransfer ALT/SGPT 99 U/L (16-61); Alkaline Phosphatase 344 U/L (45-117); Anion Gap 8 (5-15); BUN 55 mg/dL (7-18); BUN/Creat Ratio 15.5 RATIO (10-20); Calcium,Total 7.6 mg/dL (8.5-10.1); Chloride 111 mmol/L (98-107); Creatinine, Serum 3.55 mg/dL (0.70-1.30); EST Glomerular Filtration Rate 18 mL/min (>60); Est Glom Filt Rate - Afr Amer 21 mL/min (>60); Estimated Creatinine Clearance 16.04 ml/min; Globulin 4.6 g/dL (2.2-4.2); Glucose 112 mg/dL (74-106); Magnesium 1.6 mg/dL (1.6-2.6); Potassium 4.1 mmol/L (3.5-5.1); Protein, Total 6.6 g/dL (6.4-8.2); Sodium Level 142 mmol/L (136-145)
[2019-09-07 21:11] LABS: Allen Test POS; Base Excess -1 mmol/L (-2 to +2); Bicarbonate 23.5 mmol/L (22-26); Blood Gas Specimen Type ART; O2 Delivery Device Nasal Can; PO2 77 mmHG (75-100); SITE R Radial; SO2 95 % (95-99); Total Carbon Dioxide 25 mmol/L; pCO2 37.1 mmHg (35-45); pH 7.41 (7.35-7.45)
[2019-09-07 21:13] LABS: Anisocytosis RARE; Macrocytosis RARE; Platelet Estimate ADEQUATE (ADEQ); Platelet Morphology LARGE; Red Cell Morphology N CHROM NORMAL (NORM C&C); Toxic Granulation RARE
[2019-09-07] MEDS: MELATONIN 10 MG TABLET PO (21:20)
[2019-09-07] MEDS: Sertraline 50 MG Tablet PO (21:20)
[2019-09-07] MEDS: Atorvastatin Calcium 20 MG Tablet PO (21:20)
[2019-09-08] VITALS (16 sets, daily range): BP systolic 118–139; BP diastolic 56–73; PULSE 65–84; RESP 14–21; TEMP 36.3–36.9; O2SAT 92–96
[2019-09-08 03:38] LABS: Hematocrit 34.8 % (40-54); Hemoglobin 11.5 g/dL (13.0-16.5); Mean Corpuscular Hgb 29.6 pg (27.0-32.0); Mean Corpuscular Volume 89.7 fL (80-94); Mean Platelet Vol. 10.8 fl (6.2-12.0); Platelet Count 287 K/mm3 (150-450); RBC Distribution Width CV 13.6 % (11.6-14.6); RBC Distribution Width SD 44.9 fl (35.1-43.9); Red Blood Count 3.88 M/mm3 (4.6-6.2)
[2019-09-08 03:54] LABS: ALB/GLOB Ratio 0.4 RATIO (0.9-2.4); AST(SGOT) 141 U/L (15-37); Alanine Aminotransfer ALT/SGPT 98 U/L (16-61); Albumin, Serum 1.9 g/dL (3.2-5.0); Alkaline Phosphatase 312 U/L (45-117); Anion Gap 8 (5-15); BUN 63 mg/dL (7-18); BUN/Creat Ratio 17.5 RATIO (10-20); Calcium,Total 7.5 mg/dL (8.5-10.1); Chloride 107 mmol/L (98-107); EST Glomerular Filtration Rate 17 mL/min (>60); Est Glom Filt Rate - Afr Amer 21 mL/min (>60); Estimated Creatinine Clearance 15.82 ml/min; Globulin 4.4 g/dL (2.2-4.2); Glucose 130 mg/dL (74-106); Lipase 183 U/L (73-393); Magnesium 1.5 mg/dL (1.6-2.6); Protein, Total 6.3 g/dL (6.4-8.2); Sodium Level 141 mmol/L (136-145)
--- NOTE | 2019-09-08 07:21 | PN_ITS ---
Patient Problems: Active and Suspected Problems Choledocholithiasis (Acute) ALYSON (acute kidney injury) (Acute) Obstructive uropathy (Acute) Reason for Visit: Follow-up acute hypoxic respiratory failure Subjective: Patient is an 83-year-old gentleman who underwent laparoscopic cholecystectomy on 09/07/2019, postoperative. Complicated by hypoxia patient was assessed to be in acute hypoxic respiratory failure. Patient was transferred to the intensive care unit placed on noninvasive ventilation BiPAP. Also did receive Lasix. X- ray obtained demonstrated possible atelectasis and or early infiltrate left base mild pleural thickening in the costophrenic angles. Objective: GENERAL: cooperative ill-looking HEENT: Atraumatic; EYES; Anicteric, Normal Conjunctiva NECK; supple, normal thyroid, RESPIRATORY: Diminished to auscultation CARDIOVASCULAR: Regular S1 S2, GI: Slightly distended, non tender : No Renal angle tenderness; EXTREMITIES: No edema, no clubbing, MUSCULOSKELETAL: no muscle waisting NEURO: Awake; no lateralizing signs. SKIN: No Rash PSYCH; Flat affect Vitals/I&O's: Vital Signs Temp Pulse Resp BP Pulse Ox 98.5 F 65 14 121/56 H 93 09/08/19 02:00 09/08/19 06:00 09/08/19 06:00 09/08/19 06:00 09/08/19 06:00 Oxygen Flow Rate (L/min) 2 Oxygen Delivery Method Nasal Cannula Weight: 79.515 kg Body Mass Index (BMI) 25.9 Intake and Output for Last 24 Hours 09/06/19 09/07/19 09/08/19 23:59 23:59 23:59 Intake Total 3677.5 / 3777.5 2936 / 2936 375 / 375 Output Total 2350 / 3050 3875 / 3875 900 / 900 Balance 1327.5 / 727.5 -939 / -939 -525 / -525 Laboratory Results 09/05/19 06:11: Diff Path Review Reviewed 09/07/19 19:40: WBC 17.9 H, RBC 4.17 L, Hgb 12.1 L, Hct 37.5 L, MCV 89.9, MCH 29.0, MCHC 32.3, RDW Std Deviation 46.1 H, RDW Coeff of Ezio 14.0, Plt Count 262, MPV 10.9, Immature Gran % (Auto) 3.400 H, Neut % (Auto) 92.2 H, Lymph % (Auto) 3.0 L, [place] % (Auto) 1.0, Eos % (Auto) 0.1, Baso % (Auto) 0.3, Absolute Neuts ( auto) 16.5 H, Absolute Lymphs (auto) 0.53 L, Nucleated RBC % 0, Differential Comment SEE COMMENT, Toxic Granulation RARE, Platelet Estimate ADEQUATE, Plt Morphology Comment LARGE, RBC Morphology N CHROM, Anisocytosis RARE, Macrocytosis RARE 09/07/19 19:40: Sodium 142, Potassium 4.1, Chloride 111 H, Carbon Dioxide 23.0, Anion Gap 8, BUN 55 H, Creatinine 3.55 H, Estim Creat Clear Calc 16.04, Est GFR (MDRD) Af Amer 21 L, Est GFR (MDRD) Non-Af 18 L, BUN/Creatinine Ratio 15.5, Glucose 112 H, Calcium 7.6 L, Magnesium 1.6, Total Bilirubin 1.40 H, AST 145 H, ALT 99 H, Alkaline Phosphatase 344 H, Troponin I < 0.015, Total Protein 6.6, Albumin 2.0 L, Globulin 4.6 H, Albumin/Globulin Ratio 0.4 L 09/07/19 21:01: Specimen Type ART, Sample Site R Radial, pH 7.41, Bicarbonate Actual 23.5, POC Total CO2 25, Base Excess -1, O2 Saturation 95, ABG pCO2 37.1, ABG pO2 77, Uriel Test POS, O2 Delivery Device Nasal Can, Liter Flow 2.0, Blood Gas Notified Whom HOSP 09/08/19 03:30: WBC 14.0 H, RBC 3.88 L, Hgb 11.5 L, Hct 34.8 L, MCV 89.7, MCH 29.6, MCHC 33.0, RDW Std Deviation 44.9 H, RDW Coeff of Ezio 13.6, Plt Count 287, MPV 10.8 09/08/19 03:30: Sodium 141, Potassium 4.0, Chloride 107, Carbon Dioxide 26.0, Anion Gap 8, BUN 63 H, Creatinine 3.60 H, Estim Creat Clear Calc 15.82, Est GFR (MDRD) Af Amer 21 L, Est GFR (MDRD) Non-Af 17 L, BUN/Creatinine Ratio 17.5, Glucose 130 H, Calcium 7.5 L, Magnesium 1.5 L, Total Bilirubin 1.30 H, AST 141 H , ALT 98 H, Alkaline Phosphatase 312 H, Total Protein 6.3 L, Albumin 1.9 L, Globulin 4.4 H, Albumin/Globulin Ratio 0.4 L, Lipase 183 Current Medications Amlodipine Besylate (Norvasc) 5 mg PO DAILY [facility] Last Admin: 09/07/19 08:48 Dose: 5 mg Documented by: Aspirin (Ecotrin) 81 mg PO WeSa@0800 [facility] Last Admin: 09/05/19 09:18 Dose: 81 mg Documented by: Atorvastatin Calcium (Lipitor) 20 mg PO QHS [facility] Last Admin: 09/07/19 21:20 Dose: 20 mg Documented by: Guaifenesin (Mucinex) 600 mg PO BID PRN PRN Reason: MUCOUS Last Admin: 09/07/19 07:21 Dose: 600 mg Documented by: Melatonin (Melatonin) 10 mg PO QHS [facility] Last Admin: 09/07/19 21:20 Dose: 10 mg Documented by: Morphine Sulfate () 1 mg IV Q2H PRN PRN PRN Reason: Pain Score 6-10/10 Ondansetron HCl (Zofran) 4 mg IV Q6H PRN PRN PRN Reason: NAUSEA Pantoprazole Sodium (Protonix) 20 mg PO DAILY [facility] Last Admin: 09/07/19 08:48 Dose: 20 mg Documented by: Sertraline HCl (Zoloft) 50 mg PO QHS [facility] Last Admin: 09/07/19 21:20 Dose: 50 mg Documented by: Sodium Chloride () 10 - 40 ml IV UD PRN PRN Reason: SALINE FLUSH Last Admin: 09/07/19 19:44 Dose: 30 ml Documented by: Tamsulosin HCl (Flomax) 0.4 mg PO DAILY@1730 [facility] Last Admin: 09/07/19 19:43 Dose: 0.4 mg Documented by: STROKE Vital Signs/Narrative: Vital Signs Pulse Resp BP Pulse Ox 09/08/19 06:00 65 14 121/56 H 93 09/08/19 05:00 69 15 133/66 H 95 09/08/19 04:00 71 14 133/68 H 95 09/08/19 03:49 67 Medical Necessity - Tobacco Use Smoking Status: Never smoker Tobacco Use: Non-smoker Assessment/Plan All Active Problems Choledocholithiasis (Acute) ALYSON (acute kidney injury) (Acute) Obstructive uropathy (Acute) Patient is an 83-year-old gentleman admitted with right upper quadrant abdominal pain found to have choledocholithiasis underwent ERCP on 09/03/[address] Ramos. Subsequently developed acute pancreatitis. Plan is for patient to undergo laparoscopic cholecystectomy on 09/07/2019. 1. Gallstone pancreatitis. ?Patient presented with right upper quadrant abdominal pain found to have choledocho cholelithiasis underwent ERCP on 09/03/2019. Subsequently developed gallstone pancreatitis which did worsen ERCP. General surgery has been on consult. Plans for patient to undergo laparoscopic cholecystectomy on 09/07/2019 2. Acute hypoxic respiratory failure - Postoperative period following laparoscopic cholecystectomy on 09/07/2019 Complicated by hypoxia patient was assessed to be in acute hypoxic respiratory failure. Patient was transferred to the intensive care unit placed on noninvasive ventilation BiPAP. Also did receive Lasix. X-ray obtained demonstrated possible atelectasis and or early infiltrate left base mild pleural thickening in the costophrenic angles. 3. Acute urinary retention ?Patient had a Franklin catheter placed consult placed to Dr. Vero bains with urology, patient started on Flomax 4. Acute kidney injury ?Do suspect obstructive uropathy patient creatinine from 619 was 1.21, on 08/13 was 4.84. 5. Hypertension ~ blood pressure controlled, home medications continued with dose adjustment as needed 6. Dyslipidemia ~patient is on statin therapy, continued at home dose 7. Depression ?Patient is on SSRI 8. DVT Prophylaxis ?SCDs for now with plans to initiate chemoprophylaxis following patient procedure 9. Constipation Treated symptomatically Advance planning; did discuss with the patient advanced directives as well as CODE STATUS. Did explain the various scenarios involved ( FULL CODE, DNR CCA, DNR CCA with no intubation, and DNR CC and what each meant) patient remain full code with intubation and CPR pending further discussion with his .. Order was placed. Time spent on discussion 16 minutes. Code Visit Inpatient E&M: 58756 Subs Hosp L3 Procedures: 89031 Advncd Care Plan 30 Min
--- NOTE | 2019-09-08 07:48 | PCM.PN.SRG ---
Patient Problems: Active and Suspected Problems Choledocholithiasis (Acute) ALYSON (acute kidney injury) (Acute) Obstructive uropathy (Acute) Subjective: Patient appears to be doing well. He was moved to the ICU overnight due to shortness of breath. He had some diuresis and he is not short of breath this morning and feeling well. He reports passing a little bit of flatus. No nausea or vomiting. - Physical Exam Vitals/I&O's: Vital Signs Temp Pulse Resp BP Pulse Ox 98.5 F 65 14 121/56 H 93 09/08/19 02:00 09/08/19 06:00 09/08/19 06:00 09/08/19 06:00 09/08/19 06:00 Oxygen Flow Rate (L/min) 2 Oxygen Delivery Method Nasal Cannula Weight: 176 lb 5.917 oz Body Mass Index (BMI) 25.9 Intake and Output for Last 24 Hours 09/06/19 09/07/19 09/08/19 23:59 23:59 23:59 Intake Total 3677.5 / 3777.5 2936 / 2936 375 / 375 Output Total 2350 / 3050 3875 / 3875 900 / 900 Balance 1327.5 / 727.5 -939 / -939 -525 / -525 General: Alert, Oriented x3 Lungs: Normal air movement Cardiovascular: Regular rate Abdomen: Soft, Distended Laboratory Results 09/05/19 06:11: Diff Path Review Reviewed 09/07/19 19:40: WBC 17.9 H, RBC 4.17 L, Hgb 12.1 L, Hct 37.5 L, MCV 89.9, MCH 29.0, MCHC 32.3, RDW Std Deviation 46.1 H, RDW Coeff of Ezio 14.0, Plt Count 262, MPV 10.9, Immature Gran % (Auto) 3.400 H, Neut % (Auto) 92.2 H, Lymph % (Auto) 3.0 L, [place] % (Auto) 1.0, Eos % (Auto) 0.1, Baso % (Auto) 0.3, Absolute Neuts (auto) 16.5 H, Absolute Lymphs (auto) 0.53 L, Nucleated RBC % 0, Differential Comment SEE COMMENT, Toxic Granulation RARE, Platelet Estimate ADEQUATE, Plt Morphology Comment LARGE, RBC Morphology N CHROM, Anisocytosis RARE, Macrocytosis RARE 09/07/19 19:40: Sodium 142, Potassium 4.1, Chloride 111 H, Carbon Dioxide 23.0, Anion Gap 8, BUN 55 H, Creatinine 3.55 H, Estim Creat Clear Calc 16.04, Est GFR (MDRD) Af Amer 21 L, Est GFR (MDRD) Non-Af 18 L, BUN/Creatinine Ratio 15.5, Glucose 112 H, Calcium 7.6 L, Magnesium 1.6, Total Bilirubin 1.40 H, AST 145 H, ALT 99 H, Alkaline Phosphatase 344 H, Troponin I < 0.015, Total Protein 6.6, Albumin 2.0 L, Globulin 4.6 H, Albumin/Globulin Ratio 0.4 L 09/07/19 21:01: Specimen Type ART, Sample Site R Radial, pH 7.41, Bicarbonate Actual 23.5, POC Total CO2 25, Base Excess -1, O2 Saturation 95, ABG pCO2 37.1, ABG pO2 77, Uriel Test POS, O2 Delivery Device Nasal Can, Liter Flow 2.0, Blood Gas Notified Whom HOSP 09/08/19 03:30: WBC 14.0 H, RBC 3.88 L, Hgb 11.5 L, Hct 34.8 L, MCV 89.7, MCH 29.6, MCHC 33.0, RDW Std Deviation 44.9 H, RDW Coeff of Ezio 13.6, Plt Count 287, MPV 10.8 09/08/19 03:30: Sodium 141, Potassium 4.0, Chloride 107, Carbon Dioxide 26.0, Anion Gap 8, BUN 63 H, Creatinine 3.60 H, Estim Creat Clear Calc 15.82, Est GFR (MDRD) Af Amer 21 L, Est GFR (MDRD) Non-Af 17 L, BUN/Creatinine Ratio 17.5, Glucose 130 H, Calcium 7.5 L, Magnesium 1.5 L, Total Bilirubin 1.30 H, AST 141 H, ALT 98 H, Alkaline Phosphatase 312 H, Total Protein 6.3 L, Albumin 1.9 L, Globulin 4.4 H, Albumin/Globulin Ratio 0.4 L, Lipase 183 Current Medications Amlodipine Besylate (Norvasc) 5 mg PO DAILY [facility] Last Admin: 09/07/19 08:48 Dose: 5 mg Documented by: Aspirin (Ecotrin) 81 mg PO WeSa@0800 [facility] Last Admin: 09/05/19 09:18 Dose: 81 mg Documented by: Atorvastatin Calcium (Lipitor) 20 mg PO QHS [facility] Last Admin: 09/07/19 21:20 Dose: 20 mg Documented by: Guaifenesin (Mucinex) 600 mg PO BID PRN PRN Reason: MUCOUS Last Admin: 09/07/19 07:21 Dose: 600 mg Documented by: Melatonin (Melatonin) 10 mg PO QHS [facility] Last Admin: 09/07/19 21:20 Dose: 10 mg Documented by: Morphine Sulfate () 1 mg IV Q2H PRN PRN PRN Reason: Pain Score 6-10/10 Ondansetron HCl (Zofran) 4 mg IV Q6H PRN PRN PRN Reason: NAUSEA Pantoprazole Sodium (Protonix) 20 mg PO DAILY [facility] Last Admin: 09/07/19 08:48 Dose: 20 mg Documented by: Sertraline HCl (Zoloft) 50 mg PO QHS [facility] Last Admin: 09/07/19 21:20 Dose: 50 mg Documented by: Sodium Chloride () 10 - 40 ml IV UD PRN PRN Reason: SALINE FLUSH Last Admin: 09/07/19 19:44 Dose: 30 ml Documented by: Tamsulosin HCl (Flomax) 0.4 mg PO DAILY@1730 [facility] Last Admin: 09/07/19 19:43 Dose: 0.4 mg Documented by: Medical Necessity - Tobacco Use Smoking Status: Never smoker Tobacco Use: Non-smoker Assessment/Plan All Active Problems Choledocholithiasis (Acute) ALYSON (acute kidney injury) (Acute) Obstructive uropathy (Acute) 83-year-old male status post laparoscopic cholecystectomy. 1. Patient is doing well this morning and after diuresis he is breathing well on 2 L with no labored breathing. Patient's hemoglobin is stable and I will start Lovenox. Patient reports that he is not having any nausea vomiting and he is passing some flatus but his bowels were very distended yesterday during surgery and his abdomen appears mildly distended this morning. I will wait to see how much gas he is passing today and how well he is feeling is happening before starting a diet. Lipase is normal today. Octaviano Ramos MD Pager: [facility] [address] [place] [address], [address] [place] [address] Office:
--- NOTE | 2019-09-08 08:16 | CON.PCM_ITS ---
Reason for Consult Date of Consultation: 09/08/19 Reason for Consultation: Postoperative respiratory failure History of Present Illness: The patient is an 83-year-old male, with a history as outlined below, who was initially admitted to the hospital on September 03 in the setting of abdominal pain and radiographic evidence of choledocholithiasis and biliary jaundice. The patient does have a known history of obstructive sleep apnea and currently utilizes nocturnal Pap therapy. The patient underwent evaluation by general surgery. He initially underwent ERCP and then was taken to the OR on September 07, where he underwent laparoscopic cholecystectomy and cholangiogram. Prior to this, the patient was treated medically for gallstone pancreatitis. The patient did receive supplemental IV fluid hydration and at one point was nearly 6 L positive for the hospital admission. His hospital course has been complicated by urinary retention and AK I which was felt to be secondary to obstructive uropathy. The patient has been followed by urology and nephrology. Postoperatively, upon being moved to the PACU, the patient was noted to be in respiratory distress. However, per documentation, the patient was only requiring 2 L/min of supplemental oxygen, but was apparently tachypneic. He was subsequently ordered to receive IV Lasix and was placed on BiPAP therapy. The patient was then transition to the medical intensive care unit. Overnight, the patient apparently wore his home Pap machine. He responded well to diuretic therapy and as of this morning is maintaining appropriate oxygen saturations on room air. Past Medical History Past Medical History (Chronic Problems): Chronic Problems GERD (gastroesophageal reflux disease) (Chronic) HTN (hypertension) (Chronic) BPH (benign prostatic hyperplasia) (Chronic) Allergies Penicillins Adverse Reaction (Verified 09/03/19 15:51) Hives Home Medications: Ambulatory Orders Medication Instructions Recorded Amlodipine Besylate 5 mg PO DAILY 09/03/19 Ascorbic Acid [Vitamin C] 1,000 mg PO DAILY 09/03/19 Aspirin [Aspir 81] 81 mg PO WESA 09/03/19 Benazepril HCl 10 mg PO DAILY 09/03/19 Cod Liver Oil 118 ml PO DAILY 09/03/19 Colchicine [Colcrys] 0.6 mg PO BID PRN 09/03/19 Guaifenesin [Mucinex] 600 mg PO BID PRN 09/03/19 Lactobacillus Acidophilus 1 ea PO BID 09/03/19 [Acidophilus] Lutein 40 mg PO DAILY 09/03/19 Meclizine HCl 12.5 mg PO Q6H PRN PRN 09/03/19 Melatonin/Pyridoxine [Melatonin 5 2 ea PO QHS 09/03/19 mg Tablet] [place]-3 Fatty Acids/Fish Oil [Fish 1 cap PO DAILY 09/03/19 Oil 1,000 mg Capsule] Omeprazole 20 mg PO DAILY 09/03/19 Rosuvastatin Calcium 10 mg PO DAILY 09/03/19 Sertraline HCl 50 mg PO QHS 09/03/19 Vit A/Vit C/Vit E/Zinc/Copper 1 dose PO BID 09/03/19 [Preservision Areds Softgel] Surgical History: TURP Psychiatric History: Depression Lives: Spouse/ Significant Other Smoking Status: Never smoker Tobacco Use: Non-smoker Alcohol: None Drugs: None - *Family History Maternal History Items: Stroke Paternal History Items: Cancer - prostate Review of Systems Constitutional: Denies: Chills, Fever, Weight Change HEENT: Denies: Head Aches, Sinus Congestion, Sinus Drainage Cardiovascular: Denies: Chest Pain, Palpitations Respiratory: Denies: Cough, Shortness of breath at rest, Sputum production Gastrointestinal: Denies: Abdominal Pain, Nausea, Vomiting Genitourinary: Denies: Dysuria Musculoskeletal: Denies: Joint Pain, Joint Tenderness Skin: Denies: Rash, Wounds Neurological: Denies: Numbness, Tingling, Focal weakness Psychiatric: Denies: Anxiety, Depression, Homicidal Ideations, Suicidal Ideations Hematologic/ Lymphatic: Denies: Easy Bruising, Easy Bleeding Patient Problems: Active and Suspected Problems Choledocholithiasis (Acute) ALYSON (acute kidney injury) (Acute) Obstructive uropathy (Acute) Objective: The patient's most recent lab work, culture data and imaging studies have all been personally reviewed. - Physical Exam Vitals/I&O's: Vital Signs Temp Pulse Resp BP Pulse Ox 98.5 F 80 14 121/56 H 93 09/08/19 02:00 09/08/19 07:58 09/08/19 06:00 09/08/19 06:00 09/08/19 06:00 Oxygen Flow Rate (L/min) 2 Oxygen Delivery Method Nasal Cannula Weight: 176 lb 5.917 oz Body Mass Index (BMI) 25.9 Intake and Output for Last 24 Hours 09/06/19 09/07/19 09/08/19 23:59 23:59 23:59 Intake Total 3677.5 / 3777.5 2936 / 2936 375 / 375 Output Total 2350 / 3050 3875 / 3875 900 / 900 Balance 1327.5 / 727.5 -939 / -939 -525 / -525 General: Alert, Oriented x3, Cooperative, No apparent distress HEENT: Atraumatic, Normocephalic Oral: No Gingival or Mucosal Lesions/ Ulcerations Neck: Supple, No Nodes, Trachea Midline Lungs: No rhonchi, No wheeze, No rales, Diminished Cardiovascular: Regular rate, Regular Rhythm, Normal S1, Normal S2 Abdomen: Soft, Non Tender Extremities: No clubbing, No cyanosis, No edema Skin: No breakdown Musculoskeletal: No Tenderness to Palpation of Joints or Extremities Lymphatic: No Cervical, Supraclavicular, or Inguinal Adenopathy Neurological: Neuro grossly intact Psych/Mental Status: Normal Affect, Appropriate Labs (Last 48 Hours) 09/05/19 09/07/19 09/07/19 06:11 04:58 19:40 WBC 17.9 H RBC 4.17 L Hgb 12.1 L Hct 37.5 L MCV 89.9 MCH 29.0 MCHC 32.3 RDW Std Deviation 46.1 H RDW Coeff of Ezio 14.0 Plt Count 262 MPV 10.9 Immature Gran % (Auto) 3.400 H Neut % (Auto) 92.2 H Lymph % (Auto) 3.0 L [place] % (Auto) 1.0 Eos % (Auto) 0.1 Baso % (Auto) 0.3 Absolute Neuts (auto) 16.5 H Absolute Lymphs (auto) 0.53 L Nucleated RBC % 0 Differential Comment SEE COMMENT Diff Path Review Reviewed Toxic Granulation RARE Platelet Estimate ADEQUATE Plt Morphology Comment LARGE RBC Morphology N CHROM Anisocytosis RARE Macrocytosis RARE Specimen Type Sample Site pH Bicarbonate Actual POC Total CO2 Base Excess O2 Saturation ABG pCO2 ABG pO2 Uriel Test O2 Delivery Device Liter Flow Blood Gas Notified Whom Sodium 142 Potassium 3.2 L Chloride 110 H Carbon Dioxide 24.0 Anion Gap 8 BUN 64 H Creatinine 3.77 H Estim Creat Clear Calc 15.11 Est GFR (MDRD) Af Amer 20 L Est GFR (MDRD) Non-Af 16 L BUN/Creatinine Ratio 17.0 Glucose 89 Calcium 7.6 L Magnesium Total Bilirubin 1.30 H AST 59 H ALT 64 H Alkaline Phosphatase 315 H Troponin I Total Protein 5.7 L Albumin 1.7 L Globulin 4.0 Albumin/Globulin Ratio 0.4 L Lipase 510 H 09/07/19 09/07/19 09/08/19 19:40 21:01 03:30 WBC 14.0 H RBC 3.88 L Hgb 11.5 L Hct 34.8 L MCV 89.7 MCH 29.6 MCHC 33.0 RDW Std Deviation 44.9 H RDW Coeff of Ezio 13.6 Plt Count 287 MPV 10.8 Immature Gran % (Auto) Neut % (Auto) Lymph % (Auto) [place] % (Auto) Eos % (Auto) Baso % (Auto) Absolute Neuts (auto) Absolute Lymphs (auto) Nucleated RBC % Differential Comment Diff Path Review Toxic Granulation Platelet Estimate Plt Morphology Comment RBC Morphology Anisocytosis Macrocytosis Specimen Type ART Sample Site R Radial pH 7.41 Bicarbonate Actual 23.5 POC Total CO2 25 Base Excess -1 O2 Saturation 95 ABG pCO2 37.1 ABG pO2 77 Uriel Test POS O2 Delivery Device Nasal Can Liter Flow 2.0 Blood Gas Notified Whom HOSP Sodium 142 Potassium 4.1 Chloride 111 H Carbon Dioxide 23.0 Anion Gap 8 BUN 55 H Creatinine 3.55 H Estim Creat Clear Calc 16.04 Est GFR (MDRD) Af Amer 21 L Est GFR (MDRD) Non-Af 18 L BUN/Creatinine Ratio 15.5 Glucose 112 H Calcium 7.6 L Magnesium 1.6 Total Bilirubin 1.40 H AST 145 H ALT 99 H Alkaline Phosphatase 344 H Troponin I < 0.015 Total Protein 6.6 Albumin 2.0 L Globulin 4.6 H Albumin/Globulin Ratio 0.4 L Lipase 09/08/19 03:30 WBC RBC Hgb Hct MCV MCH MCHC RDW Std Deviation RDW Coeff of Ezio Plt Count MPV Immature Gran % (Auto) Neut % (Auto) Lymph % (Auto) [place] % (Auto) Eos % (Auto) Baso % (Auto) Absolute Neuts (auto) Absolute Lymphs (auto) Nucleated RBC % Differential Comment Diff Path Review Toxic Granulation Platelet Estimate Plt Morphology Comment RBC Morphology Anisocytosis Macrocytosis Specimen Type Sample Site pH Bicarbonate Actual POC Total CO2 Base Excess O2 Saturation ABG pCO2 ABG pO2 Uriel Test O2 Delivery Device Liter Flow Blood Gas Notified Whom Sodium 141 Potassium 4.0 Chloride 107 Carbon Dioxide 26.0 Anion Gap 8 BUN 63 H Creatinine 3.60 H Estim Creat Clear Calc 15.82 Est GFR (MDRD) Af Amer 21 L Est GFR (MDRD) Non-Af 17 L BUN/Creatinine Ratio 17.5 Glucose 130 H Calcium 7.5 L Magnesium 1.5 L Total Bilirubin 1.30 H AST 141 H ALT 98 H Alkaline Phosphatase 312 H Troponin I Total Protein 6.3 L Albumin 1.9 L Globulin 4.4 H Albumin/Globulin Ratio 0.4 L Lipase 183 Clinical Impression(s) from Imaging Studies Endo Retro Cholangiopancreatogram 09/03/19 16:22 IMPRESSION: Stent placement in the common bile duct and pancreatic duct. Electronically Signed: Delmar Durbin, at 8:41 EST , Service support , Renal Ultrasound 09/04/19 13:10 IMPRESSION: Right-sided renal cysts as described above, otherwise unremarkable ultrasound of the kidneys and visualized urinary bladder. Electronically Signed: Selam Leary MD at 1:04 EST , Service support , KUB X-Ray 09/05/19 15:42 IMPRESSION: Nonspecific bowel gas pattern with gaseous distended loops of small and large bowel throughout the abdomen and pelvis. Prominent fecal retention in the right hemicolon. Electronically Signed: Servando Miles DO at 16:16 EST Tel , Service support , Cholangiogram 09/07/19 15:00 IMPRESSION: Fluoroscopic guided intraoperative cholangiogram Electronically Signed: Epi Babcock MD at 16:12 EST , Service support , Chest X-Ray 09/07/19 17:00 IMPRESSION: Possible atelectasis and/or early infiltrate left base, mild pleural thickening in the costophrenic angles. Findings exaggerated by low lung volume. Other nonacute findings as outlined above. Electronically Signed: No Quispe MD at 0:38 EST , Service support , Current Medications Amlodipine Besylate (Norvasc) 5 mg PO DAILY [facility] Last Admin: 09/07/19 08:48 Dose: 5 mg Documented by: Aspirin (Ecotrin) 81 mg PO WeSa@0800 [facility] Last Admin: 09/05/19 09:18 Dose: 81 mg Documented by: Atorvastatin Calcium (Lipitor) 20 mg PO QHS [facility] Last Admin: 09/07/19 21:20 Dose: 20 mg Documented by: Docusate Sodium (Colace) 100 mg PO BID [facility] Enoxaparin Sodium (Lovenox) 30 mg SC DAILY [facility] Guaifenesin (Mucinex) 600 mg PO BID PRN PRN Reason: MUCOUS Last Admin: 09/07/19 07:21 Dose: 600 mg Documented by: Magnesium Sulfate 2 gm/ Sodium (Chloride) 104 mls @ 52 mls/hr IV X1 ONE Stop: 09/08/19 09:59 Melatonin (Melatonin) 10 mg PO QHS [facility] Last Admin: 09/07/19 21:20 Dose: 10 mg Documented by: Morphine Sulfate () 1 mg IV Q2H PRN PRN PRN Reason: Pain Score 6-10/10 Ondansetron HCl (Zofran) 4 mg IV Q6H PRN PRN PRN Reason: NAUSEA Pantoprazole Sodium (Protonix) 20 mg PO DAILY [facility] Last Admin: 09/07/19 08:48 Dose: 20 mg Documented by: Sertraline HCl (Zoloft) 50 mg PO QHS [facility] Last Admin: 09/07/19 21:20 Dose: 50 mg Documented by: Sodium Chloride () 10 - 40 ml IV UD PRN PRN Reason: SALINE FLUSH Last Admin: 09/07/19 19:44 Dose: 30 ml Documented by: Tamsulosin HCl (Flomax) 0.4 mg PO DAILY@1730 [facility] Last Admin: 09/07/19 19:43 Dose: 0.4 mg Documented by: Assessment/Plan Active and Suspected Problems Choledocholithiasis (Acute) ALYSON (acute kidney injury) (Acute) Obstructive uropathy (Acute) RECOMMENDATIONS: 1. Continue nocturnal Pap therapy per home regimen. 2. Consider additional diuretic therapy, if needed. 3. Encourage incentive spirometer use and mobilize patient as tolerated. 4. The patient is medically stable for transfer out of the intensive care unit. 5. Given the patient's lack of ICU/pulmonary needs, will sign off. Please call with any additional questions. IMPRESSIONS: 1. Acute hypoxemic respiratory insufficiency Appears to be secondary to volume overloaded state coupled with the fact that the patient has underlying sleep disordered breathing and underwent a laparoscopic cholecystectomy requiring anesthesia. The patient responded appropriately to the use of noninvasive positive pressure ventilatory support and gentle diuresis. He is currently maintaining appropriate oxygen saturations on room air. I would recommend the continued use of nocturnal Pap therapy per his home regimen. Continue to encourage incentive spirometer use and mobilize patient as tolerated. Additional Lasix can be administered, if clinically indicated. This note was generated with [employer] dictation software. It may contain incorrect words, spelling, and punctuation that were not noted in checking the note before signing. Code Visit Inpatient E&M: 52310 Init Hosp L2
[2019-09-08] MEDS: Docusate Sodium 100 MG Capsule PO ×2 (09:38→21:45)
[2019-09-08] MEDS: amLODIPine 5 MG Tablet PO (09:38)
[2019-09-08] MEDS: Pantoprazole Sodium 20 MG Tablet PO (09:38)
[2019-09-08] MEDS: Enoxaparin 30 MG/0.3 ML Syringe SC (09:39)
[2019-09-08] MEDS: guaiFENesin 600 MG Tablet PO (13:34)
--- NOTE | 2019-09-08 13:55 | PN.RENAL_ITS ---
Patient Problems: Active and Suspected Problems Choledocholithiasis (Acute) ALYSON (acute kidney injury) (Acute) Obstructive uropathy (Acute) Subjective: no new complaints - Physical Exam Vitals/I&O's: Vital Signs Temp Pulse Resp BP Pulse Ox 97.4 F L 73 18 132/66 H 94 09/08/19 08:26 09/08/19 11:24 09/08/19 08:26 09/08/19 08:26 09/08/19 08:26 Oxygen Flow Rate (L/min) 1.5 Oxygen Delivery Method Room Air Weight: 80 kg Body Mass Index (BMI) 25.9 Intake and Output for Last 24 Hours 09/06/19 09/07/19 09/08/19 23:59 23:59 23:59 Intake Total 3677.5 / 3777.5 2936 / 2936 479 / 479 Output Total 2350 / 3050 3875 / 3875 1400 / 1400 Balance 1327.5 / 727.5 -939 / -939 -921 / -921 General: Alert, Oriented x3, Cooperative HEENT: Atraumatic, PERRLA, EOMI, Normocephalic Neck: Supple, No JVD, Negative Carotid Bruits Lungs: Clear to auscultation, Normal air movement Cardiovascular: Regular rate, No murmurs Abdomen: Bowel Sounds Present, Soft, Non Tender Extremities: No edema, Capillary Refill Less than 3 Seconds Skin: No rashes, No breakdown Musculoskeletal: No Tenderness to Palpation of Joints or Extremities Neurological: Cranial nerves II-XII grossly intact Psych/Mental Status: Normal Affect, Appropriate Laboratory Results 09/07/19 19:40: WBC 17.9 H, RBC 4.17 L, Hgb 12.1 L, Hct 37.5 L, MCV 89.9, MCH 29.0, MCHC 32.3, RDW Std Deviation 46.1 H, RDW Coeff of Ezio 14.0, Plt Count 262, MPV 10.9, Immature Gran % (Auto) 3.400 H, Neut % (Auto) 92.2 H, Lymph % (Auto) 3.0 L, [place] % (Auto) 1.0, Eos % (Auto) 0.1, Baso % (Auto) 0.3, Absolute Neuts (auto) 16.5 H, Absolute Lymphs (auto) 0.53 L, Nucleated RBC % 0, Differential Comment SEE COMMENT, Toxic Granulation RARE, Platelet Estimate ADEQUATE, Plt Morphology Comment LARGE, RBC Morphology N CHROM, Anisocytosis RARE, Macrocytosis RARE 09/07/19 19:40: Sodium 142, Potassium 4.1, Chloride 111 H, Carbon Dioxide 23.0, Anion Gap 8, BUN 55 H, Creatinine 3.55 H, Estim Creat Clear Calc 16.04, Est GFR (MDRD) Af Amer 21 L, Est GFR (MDRD) Non-Af 18 L, BUN/Creatinine Ratio 15.5, Glucose 112 H, Calcium 7.6 L, Magnesium 1.6, Total Bilirubin 1.40 H, AST 145 H, ALT 99 H, Alkaline Phosphatase 344 H, Troponin I < 0.015, Total Protein 6.6, Albumin 2.0 L, Globulin 4.6 H, Albumin/Globulin Ratio 0.4 L 09/07/19 21:01: Specimen Type ART, Sample Site R Radial, pH 7.41, Bicarbonate Actual 23.5, POC Total CO2 25, Base Excess -1, O2 Saturation 95, ABG pCO2 37.1, ABG pO2 77, Uriel Test POS, O2 Delivery Device Nasal Can, Liter Flow 2.0, Blood Gas Notified Whom HOSP 09/08/19 03:30: WBC 14.0 H, RBC 3.88 L, Hgb 11.5 L, Hct 34.8 L, MCV 89.7, MCH 29.6, MCHC 33.0, RDW Std Deviation 44.9 H, RDW Coeff of Ezio 13.6, Plt Count 287, MPV 10.8 09/08/19 03:30: Sodium 141, Potassium 4.0, Chloride 107, Carbon Dioxide 26.0, Anion Gap 8, BUN 63 H, Creatinine 3.60 H, Estim Creat Clear Calc 15.82, Est GFR (MDRD) Af Amer 21 L, Est GFR (MDRD) Non-Af 17 L, BUN/Creatinine Ratio 17.5, Glucose 130 H, Calcium 7.5 L, Magnesium 1.5 L, Total Bilirubin 1.30 H, AST 141 H , ALT 98 H, Alkaline Phosphatase 312 H, Total Protein 6.3 L, Albumin 1.9 L, Globulin 4.4 H, Albumin/Globulin Ratio 0.4 L, Lipase 183 Current Medications Amlodipine Besylate (Norvasc) 5 mg PO DAILY [facility] Last Admin: 09/08/19 09:38 Dose: 5 mg Documented by: Aspirin (Ecotrin) 81 mg PO WeSa@0800 [facility] Last Admin: 09/05/19 09:18 Dose: 81 mg Documented by: Atorvastatin Calcium (Lipitor) 20 mg PO QHS [facility] Last Admin: 09/07/19 21:20 Dose: 20 mg Documented by: Docusate Sodium (Colace) 100 mg PO BID [facility] Last Admin: 09/08/19 09:38 Dose: 100 mg Documented by: Enoxaparin Sodium (Lovenox) 30 mg SC DAILY [facility] Last Admin: 09/08/19 09:39 Dose: 30 mg Documented by: Guaifenesin (Mucinex) 600 mg PO BID PRN PRN Reason: MUCOUS Last Admin: 09/08/19 13:34 Dose: 600 mg Documented by: Melatonin (Melatonin) 10 mg PO QHS [facility] Last Admin: 09/07/19 21:20 Dose: 10 mg Documented by: Morphine Sulfate () 1 mg IV Q2H PRN PRN PRN Reason: Pain Score 6-10/10 Ondansetron HCl (Zofran) 4 mg IV Q6H PRN PRN PRN Reason: NAUSEA Pantoprazole Sodium (Protonix) 20 mg PO DAILY [facility] Last Admin: 09/08/19 09:38 Dose: 20 mg Documented by: Sertraline HCl (Zoloft) 50 mg PO QHS [facility] Last Admin: 09/07/19 21:20 Dose: 50 mg Documented by: Sodium Chloride () 10 - 40 ml IV UD PRN PRN Reason: SALINE FLUSH Last Admin: 09/07/19 19:44 Dose: 30 ml Documented by: Tamsulosin HCl (Flomax) 0.4 mg PO DAILY@1730 [facility] Last Admin: 09/07/19 19:43 Dose: 0.4 mg Documented by: Medical Necessity - Tobacco Use Smoking Status: Never smoker Tobacco Use: Non-smoker Assessment/Plan All Active Problems Choledocholithiasis (Acute) ALYSON (acute kidney injury) (Acute) Obstructive uropathy (Acute) ALYSON. likely ATN, cr is trended down and is now down to 3.6. stable for the last 2 days. electrlytes are ok. received lasix for dyspnea. ortega out today. watch urine output clsely
[2019-09-08] MEDS: Tamsulosin HCl 0.4 MG Capsule PO (17:13)
[2019-09-08] MEDS: Sertraline 50 MG Tablet PO (21:45)
[2019-09-08] MEDS: Atorvastatin Calcium 20 MG Tablet PO (21:45)
[2019-09-08] MEDS: MELATONIN 10 MG TABLET PO (21:45)
[2019-09-09] VITALS (8 sets, daily range): BP systolic 131–150; BP diastolic 49–85; PULSE 73–88; RESP 16–20; TEMP 35.8–37.2; O2SAT 93–97
[2019-09-09 06:11] LABS: Hematocrit 33.1 % (40-54); Hemoglobin 10.8 g/dL (13.0-16.5); Mean Corp Hgb Conc 32.6 g/dL (32-36); Mean Corpuscular Hgb 29.1 pg (27.0-32.0); Mean Corpuscular Volume 89.2 fL (80-94); Platelet Count 315 K/mm3 (150-450); RBC Distribution Width CV 13.9 % (11.6-14.6); Red Blood Count 3.71 M/mm3 (4.6-6.2); White Blood Count 12.5 K/mm3 (4.4-11.0)
[2019-09-09 06:33] LABS: ALB/GLOB Ratio 0.4 RATIO (0.9-2.4); AST(SGOT) 107 U/L (15-37); Alanine Aminotransfer ALT/SGPT 90 U/L (16-61); Albumin, Serum 1.8 g/dL (3.2-5.0); Alkaline Phosphatase 263 U/L (45-117); Anion Gap 7 (5-15); BUN 66 mg/dL (7-18); BUN/Creat Ratio 20.4 RATIO (10-20); Calcium,Total 7.3 mg/dL (8.5-10.1); Chloride 111 mmol/L (98-107); Creatinine, Serum 3.24 mg/dL (0.70-1.30); EST Glomerular Filtration Rate 20 mL/min (>60); Est Glom Filt Rate - Afr Amer 24 mL/min (>60); Estimated Creatinine Clearance 17.58 ml/min; Globulin 4.2 g/dL (2.2-4.2); Glucose 95 mg/dL (74-106); Potassium 3.6 mmol/L (3.5-5.1); Sodium Level 143 mmol/L (136-145)
--- NOTE | 2019-09-09 07:22 | PN_ITS ---
Patient Problems: Active and Suspected Problems Choledocholithiasis (Acute) ALYSON (acute kidney injury) (Acute) Obstructive uropathy (Acute) Reason for Visit: acute cholecystitis Subjective: Patient seen went due to urinary retention resulting in Franklin catheter being placed back. Abdomen still remains distended plan is to advance diet once abdominal distention subsides. Objective: GENERAL: cooperative ill-looking HEENT: Atraumatic; EYES; Anicteric, Normal Conjunctiva NECK; supple, normal thyroid, RESPIRATORY: Diminished to auscultation CARDIOVASCULAR: Regular S1 S2, GI: Slightly distended, non tender : No Renal angle tenderness; EXTREMITIES: No edema, no clubbing, MUSCULOSKELETAL: no muscle waisting NEURO: Awake; no lateralizing signs. SKIN: No Rash PSYCH; Flat affect Vitals/I&O's: Vital Signs Temp Pulse Resp BP Pulse Ox 98.5 F 74 16 144/85 H 97 09/09/19 04:01 09/09/19 04:24 09/09/19 04:01 09/09/19 04:01 09/09/19 04:01 Oxygen Flow Rate (L/min) 1.5 Oxygen Delivery Method Room Air Weight: 80.6 kg Body Mass Index (BMI) 25.9 Intake and Output for Last 24 Hours 09/07/19 09/08/19 09/09/19 23:59 23:59 23:59 Intake Total 2936 / 2936 729 / 729 100 / 100 Output Total 3875 / 3875 1550 / 1550 1400 / 1400 Balance -939 / -939 -821 / -821 -1300 / -1300 Laboratory Results 09/09/19 05:52: WBC 12.5 H, RBC 3.71 L, Hgb 10.8 L, Hct 33.1 L, MCV 89.2, MCH 29.1, MCHC 32.6, RDW Std Deviation 45.0 H, RDW Coeff of Ezio 13.9, Plt Count 315, MPV 11.0 09/09/19 05:52: Sodium 143, Potassium 3.6, Chloride 111 H, Carbon Dioxide 25.0, Anion Gap 7, BUN 66 H, Creatinine 3.24 H, Estim Creat Clear Calc 17.58, Est GFR (MDRD) Af Amer 24 L, Est GFR (MDRD) Non-Af 20 L, BUN/Creatinine Ratio 20.4 H, Glucose 95, Calcium 7.3 L, Total Bilirubin 1.10 H, AST 107 H, ALT 90 H, Alkaline Phosphatase 263 H, Total Protein 6.0 L, Albumin 1.8 L, Globulin 4.2, Albumin/Globulin Ratio 0.4 L Current Medications Amlodipine Besylate (Norvasc) 5 mg PO DAILY [facility] Last Admin: 09/08/19 09:38 Dose: 5 mg Documented by: Aspirin (Ecotrin) 81 mg PO WeSa@0800 [facility] Last Admin: 09/05/19 09:18 Dose: 81 mg Documented by: Atorvastatin Calcium (Lipitor) 20 mg PO QHS [facility] Last Admin: 09/08/19 21:45 Dose: 20 mg Documented by: Docusate Sodium (Colace) 100 mg PO BID [facility] Last Admin: 09/08/19 21:45 Dose: 100 mg Documented by: Enoxaparin Sodium (Lovenox) 30 mg SC DAILY [facility] Last Admin: 09/08/19 09:39 Dose: 30 mg Documented by: Guaifenesin (Mucinex) 600 mg PO BID PRN PRN Reason: MUCOUS Last Admin: 09/08/19 13:34 Dose: 600 mg Documented by: Melatonin (Melatonin) 10 mg PO QHS [facility] Last Admin: 09/08/19 21:45 Dose: 10 mg Documented by: Morphine Sulfate () 1 mg IV Q2H PRN PRN PRN Reason: Pain Score 6-10/10 Ondansetron HCl (Zofran) 4 mg IV Q6H PRN PRN PRN Reason: NAUSEA Pantoprazole Sodium (Protonix) 20 mg PO DAILY [facility] Last Admin: 09/08/19 09:38 Dose: 20 mg Documented by: Sertraline HCl (Zoloft) 50 mg PO QHS [facility] Last Admin: 09/08/19 21:45 Dose: 50 mg Documented by: Sodium Chloride () 10 - 40 ml IV UD PRN PRN Reason: SALINE FLUSH Last Admin: 09/07/19 19:44 Dose: 30 ml Documented by: Tamsulosin HCl (Flomax) 0.4 mg PO DAILY@1730 [facility] Last Admin: 09/08/19 17:13 Dose: 0.4 mg Documented by: STROKE Vital Signs/Narrative: Vital Signs Temp Pulse Resp BP Pulse Ox 09/09/19 04:24 74 09/09/19 04:01 98.5 F 74 16 144/85 H 97 Medical Necessity - Tobacco Use Smoking Status: Never smoker Tobacco Use: Non-smoker Assessment/Plan All Active Problems Choledocholithiasis (Acute) ALYSON (acute kidney injury) (Acute) Obstructive uropathy (Acute) Patient is an 83-year-old gentleman admitted with right upper quadrant abdominal pain found to have choledocholithiasis underwent ERCP on 09/03/[address] Ramos. Subsequently developed acute pancreatitis. Plan is for patient to undergo laparoscopic cholecystectomy on 09/07/2019. 1. Gallstone pancreatitis. ?Patient presented with right upper quadrant abdominal pain found to have choledocho cholelithiasis underwent ERCP on 09/03/2019. Subsequently developed gallstone pancreatitis which did worsen ERCP. General surgery has been on consult. Plans for patient to undergo laparoscopic cholecystectomy on 09/07/2019 -09/09/2019 s/p laparoscopic cholecystectomy on 09/07/2019, abdomen is still remains distended, plan is to advance diet once abdomen distension subsides as per Gen Surgery 2. Acute hypoxic respiratory failure - Postoperative period following laparoscopic cholecystectomy on 09/07/2019 Complicated by hypoxia patient was assessed to be in acute hypoxic respiratory failure. Patient was transferred to the intensive care unit placed on noninvasive ventilation BiPAP. Also did receive Lasix. X-ray obtained demonstrated possible atelectasis and or early infiltrate left base mild pleural thickening in the costophrenic angles. 3. Acute urinary retention ?Patient had a Franklin catheter placed consult placed to Dr. Vero bains with urology, patient started on Flomax -Patient's Franklin catheter was removed and had to be reinserted during the evening of 09/08/2019. Plans for patient to be discharged with Franklin catheter and to follow-up with Dr. Eden as outpatient 4. Acute kidney injury ?Do suspect obstructive uropathy patient creatinine from 619 was 1.21, on 08/31/2019 was 4.84. 5. Hypertension ~ blood pressure controlled, home medications continued with dose adjustment as needed 6. Dyslipidemia ~patient is on statin therapy, continued at home dose 7. Depression ?Patient is on SSRI 8. DVT Prophylaxis ?SCDs for now with plans to initiate chemoprophylaxis following patient procedure 9. Constipation Treated symptomatically Advance planning; did discuss with the patient advanced directives as well as CODE STATUS. Did explain the various scenarios involved ( FULL CODE, DNR CCA, DNR CCA with no intubation, and DNR CC and what each meant) patient remain full code with intubation and CPR pending further discussion with his .. Order was placed. Time spent on discussion 16 minutes. Code Visit Inpatient E&M: 14925 Subs Hosp L2
--- NOTE | 2019-09-09 08:42 | PCM.PN.SRG ---
Patient Problems: Active and Suspected Problems Choledocholithiasis (Acute) ALYSON (acute kidney injury) (Acute) Obstructive uropathy (Acute) Subjective: Patient had no nausea or vomiting overnight. He is tolerating clear liquid diet but is not passing much flatus. Franklin was replaced. - Physical Exam Vitals/I&O's: Vital Signs Temp Pulse Resp BP Pulse Ox 98.5 F 74 16 144/85 H 97 09/09/19 04:01 09/09/19 04:24 09/09/19 04:01 09/09/19 04:01 09/09/19 04:01 Oxygen Flow Rate (L/min) 1.5 Oxygen Delivery Method Room Air Weight: 177 lb 11.081 oz Body Mass Index (BMI) 25.9 Intake and Output for Last 24 Hours 09/07/19 09/08/19 09/09/19 23:59 23:59 23:59 Intake Total 2936 / 2936 729 / 729 100 / 100 Output Total 3875 / 3875 1550 / 1550 1400 / 1400 Balance -939 / -939 -821 / -821 -1300 / -1300 General: Alert, Oriented x3 Lungs: Normal air movement Cardiovascular: Regular rate, Regular Rhythm Abdomen: Soft, Distended Neurological: Cranial nerves II-XII grossly intact Psych/Mental Status: Normal Affect Laboratory Results 09/09/19 05:52: WBC 12.5 H, RBC 3.71 L, Hgb 10.8 L, Hct 33.1 L, MCV 89.2, MCH 29.1, MCHC 32.6, RDW Std Deviation 45.0 H, RDW Coeff of Ezio 13.9, Plt Count 315, MPV 11.0 09/09/19 05:52: Sodium 143, Potassium 3.6, Chloride 111 H, Carbon Dioxide 25.0, Anion Gap 7, BUN 66 H, Creatinine 3.24 H, Estim Creat Clear Calc 17.58, Est GFR (MDRD) Af Amer 24 L, Est GFR (MDRD) Non-Af 20 L, BUN/Creatinine Ratio 20.4 H, Glucose 95, Calcium 7.3 L, Total Bilirubin 1.10 H, AST 107 H, ALT 90 H, Alkaline Phosphatase 263 H, Total Protein 6.0 L, Albumin 1.8 L, Globulin 4.2, Albumin/Globulin Ratio 0.4 L Current Medications Amlodipine Besylate (Norvasc) 5 mg PO DAILY [facility] Last Admin: 09/08/19 09:38 Dose: 5 mg Documented by: Aspirin (Ecotrin) 81 mg PO WeSa@0800 [facility] Last Admin: 09/05/19 09:18 Dose: 81 mg Documented by: Atorvastatin Calcium (Lipitor) 20 mg PO QHS [facility] Last Admin: 09/08/19 21:45 Dose: 20 mg Documented by: Docusate Sodium (Colace) 100 mg PO BID [facility] Last Admin: 09/08/19 21:45 Dose: 100 mg Documented by: Enoxaparin Sodium (Lovenox) 30 mg SC DAILY [facility] Last Admin: 09/08/19 09:39 Dose: 30 mg Documented by: Guaifenesin (Mucinex) 600 mg PO BID PRN PRN Reason: MUCOUS Last Admin: 09/08/19 13:34 Dose: 600 mg Documented by: Melatonin (Melatonin) 10 mg PO QHS [facility] Last Admin: 09/08/19 21:45 Dose: 10 mg Documented by: Morphine Sulfate () 1 mg IV Q2H PRN PRN PRN Reason: Pain Score 6-10/10 Ondansetron HCl (Zofran) 4 mg IV Q6H PRN PRN PRN Reason: NAUSEA Pantoprazole Sodium (Protonix) 20 mg PO DAILY [facility] Last Admin: 09/08/19 09:38 Dose: 20 mg Documented by: Sertraline HCl (Zoloft) 50 mg PO QHS [facility] Last Admin: 09/08/19 21:45 Dose: 50 mg Documented by: Sodium Chloride () 10 - 40 ml IV UD PRN PRN Reason: SALINE FLUSH Last Admin: 09/07/19 19:44 Dose: 30 ml Documented by: Tamsulosin HCl (Flomax) 0.4 mg PO DAILY@1730 [facility] Last Admin: 09/08/19 17:13 Dose: 0.4 mg Documented by: Medical Necessity - Tobacco Use Smoking Status: Never smoker Tobacco Use: Non-smoker Assessment/Plan All Active Problems Choledocholithiasis (Acute) ALYSON (acute kidney injury) (Acute) Obstructive uropathy (Acute) 83-year-old male with pancreatitis status post cholecystectomy 1. Patient reports he is not passing less flatus. He still feels distended. He is not having any nausea or vomiting. I am getting a KUB this morning to see if his bowels are distended. He is tolerating clear liquid diet. His labs are normalizing and his liver enzymes are improved and his lipase is normal. Once the patient is not distended and his bowels do not appear dilated his diet can be advanced as tolerated he may be discharged home. Octaviano Ramos MD Pager: [facility] [address] [place] [address] [address] [place] [address] Office:
[2019-09-09] MEDS: amLODIPine 5 MG Tablet PO (10:01)
[2019-09-09] MEDS: Docusate Sodium 100 MG Capsule PO ×2 (10:01→22:24)
[2019-09-09] MEDS: Aspirin E.C. 81 MG Tablet PO (10:01)
[2019-09-09] MEDS: Pantoprazole Sodium 20 MG Tablet PO (10:01)
[2019-09-09] MEDS: 0.9% Saline Lock 10 ML Syringe IV (10:02)
[2019-09-09] MEDS: Enoxaparin 30 MG/0.3 ML Syringe SC (10:17)
[2019-09-09 11:31] LABS: Eosinophil Ct. Urine No Eosinophils Seen % (.)
--- NOTE | 2019-09-09 11:54 | NURSING ---
therapy in working with pt at this time
--- NOTE | 2019-09-09 13:15 | RAD_ITS ---
STUDY: X-RAY - ABDOMEN/PELVIS REASON FOR EXAM: Male, 83 years old. Bladder retention and pain TECHNIQUE: AP supine and upright views of the abdomen and pelvis. COMPARISON: Comparison is made with prior study dated September 05, 2019. FINDINGS: Mild increased markings at the lung bases. Gas is seen within slightly dilated small bowel loops. Oral contrast and fecal material as well as gas is seen throughout the colon down to the rectum. This may represent an ileus pattern. There is no demonstrated free abdominal air. A stent is seen within the common bile duct as well as the pancreatic duct. Air is seen within the biliary tree in keeping with the presence of the stents. Normal soft tissue structures. There are diffuse degenerative changes of the visualized lumbar spine. RAD/Abd Inc Decub and/or Erect IMPRESSION: Findings suggestive of an ileus gas pattern. Electronically Signed: Delmar Durbin, at 15:50 EST , Service support ,
[2019-09-09] MEDS: Albuterol 2.5 MG/3 ML VIAL.NEB. INHALATION (13:52)
--- NOTE | 2019-09-09 13:54 | CPS ---
Pt has own CPAP, 4lpm O2 had to bled-in to keep Sats in 90's. Explained in detail how to clean his CPAP, he says no one told him to clean it. Reynaldo. stressed importance of keeping machine, tubing and mask clean.
--- NOTE | 2019-09-09 17:24 | PCM.PN.REN ---
Patient Problems: Active and Suspected Problems Choledocholithiasis (Acute) ALYSON (acute kidney injury) (Acute) Obstructive uropathy (Acute) Subjective: Following for ALYSON. Pt denies CP, SOB at rest. Distended abdomen but no pain. No edema of LE. Oral intake is still poor although there is no vomiting or diarrhea. - Physical Exam Vitals/I&O's: Vital Signs Temp Pulse Resp BP Pulse Ox 96.6 F L 87 18 131/49 H 93 09/09/19 14:23 09/09/19 14:23 09/09/19 14:23 09/09/19 14:23 09/09/19 14:23 Oxygen Flow Rate (L/min) 1.5 Oxygen Delivery Method Room Air Weight: 80.6 kg Body Mass Index (BMI) 25.9 Intake and Output for Last 24 Hours 09/07/19 09/08/19 09/09/19 23:59 23:59 23:59 Intake Total 2936 / 2936 729 / 729 340 / 340 Output Total 3875 / 3875 1550 / 1550 1400 / 1400 Balance -939 / -939 -821 / -821 -1060 / -1060 General: Alert, Oriented x3, Cooperative HEENT: Atraumatic Oral: Moist Mucosa Neck: Supple Lungs: Clear to auscultation Cardiovascular: Regular rate, Normal S1, Normal S2, No murmurs Abdomen: Bowel Sounds Present, Non Tender, Distended Extremities: No clubbing, No cyanosis, No edema Laboratory Results 09/05/19 18:50: Eos Smear Total Cells No Eosinophils Seen 09/09/19 05:52: WBC 12.5 H, RBC 3.71 L, Hgb 10.8 L, Hct 33.1 L, MCV 89.2, MCH 29.1, MCHC 32.6, RDW Std Deviation 45.0 H, RDW Coeff of Ezio 13.9, Plt Count 315, MPV 11.0 09/09/19 05:52: Sodium 143, Potassium 3.6, Chloride 111 H, Carbon Dioxide 25.0, Anion Gap 7, BUN 66 H, Creatinine 3.24 H, Estim Creat Clear Calc 17.58, Est GFR (MDRD) Af Amer 24 L, Est GFR (MDRD) Non-Af 20 L, BUN/Creatinine Ratio 20.4 H, Glucose 95, Calcium 7.3 L, Total Bilirubin 1.10 H, AST 107 H, ALT 90 H, Alkaline Phosphatase 263 H, Total Protein 6.0 L, Albumin 1.8 L, Globulin 4.2, Albumin/Globulin Ratio 0.4 L Current Medications Albuterol Sulfate (Ventolin Aerosols) 2.5 mg INHALATION Q2H PRN PRN PRN Reason: dyspnea, wheezing Last Admin: 09/09/19 13:52 Dose: 2.5 mg Documented by: Amlodipine Besylate (Norvasc) 5 mg PO DAILY [facility] Last Admin: 09/09/19 10:01 Dose: 5 mg Documented by: Aspirin (Ecotrin) 81 mg PO WeSa@0800 [facility] Last Admin: 09/09/19 10:01 Dose: 81 mg Documented by: Atorvastatin Calcium (Lipitor) 20 mg PO QHS [facility] Last Admin: 09/08/19 21:45 Dose: 20 mg Documented by: Docusate Sodium (Colace) 100 mg PO BID [facility] Last Admin: 09/09/19 10:01 Dose: 100 mg Documented by: Enoxaparin Sodium (Lovenox) 30 mg SC DAILY [facility] Last Admin: 09/09/19 10:17 Dose: 30 mg Documented by: Guaifenesin (Mucinex) 600 mg PO BID PRN PRN Reason: MUCOUS Last Admin: 09/08/19 13:34 Dose: 600 mg Documented by: Melatonin (Melatonin) 10 mg PO QHS [facility] Last Admin: 09/08/19 21:45 Dose: 10 mg Documented by: Morphine Sulfate () 1 mg IV Q2H PRN PRN PRN Reason: Pain Score 6-10/10 Ondansetron HCl (Zofran) 4 mg IV Q6H PRN PRN PRN Reason: NAUSEA Pantoprazole Sodium (Protonix) 20 mg PO DAILY [facility] Last Admin: 09/09/19 10:01 Dose: 20 mg Documented by: Sertraline HCl (Zoloft) 50 mg PO QHS [facility] Last Admin: 09/08/19 21:45 Dose: 50 mg Documented by: Sodium Chloride () 10 - 40 ml IV UD PRN PRN Reason: SALINE FLUSH Last Admin: 09/09/19 10:02 Dose: 10 ml Documented by: Tamsulosin HCl (Flomax) 0.4 mg PO DAILY@1730 [facility] Last Admin: 09/08/19 17:13 Dose: 0.4 mg Documented by: Medical Necessity - Tobacco Use Smoking Status: Never smoker Tobacco Use: Non-smoker Assessment/Plan All Active Problems Choledocholithiasis (Acute) ALYSON (acute kidney injury) (Acute) Obstructive uropathy (Acute) 1. Acute kidney injury. Unknown baseline. No prior lab before 09/03/19. His SCr was 6.85 mg/dL on 09/03 with slow but gradual improvement of renal function. No hydronephrosis seen on US. Suspect ALYSON is most likely due to ATN related to pancreatitis rather than obstruction (I would have expected quicker improvement of renal function if ALYSON is primarily from obstruction). He is nonoliguric. No need for kidney replacement therapy. Keep I=O. Avoid nephrotoxins such as IV contrast or NSAID. Recheck SCr/electrolytes in am. Current medications are reviewed and are appropriately dosed for current CrCl. 2. Choledocholithiasis. c/b gall stone pancreatitis. management as per hospital medicine service and surgery. 3. Acute on chronic urinary retention. Doubt this is the primary cause of ALYSON. See above. Franklin. Voiding trial as per Gu service.
[2019-09-09] MEDS: Tamsulosin HCl 0.4 MG Capsule PO (17:50)
[2019-09-09] MEDS: Sertraline 50 MG Tablet PO (22:24)
[2019-09-09] MEDS: Atorvastatin Calcium 20 MG Tablet PO (22:24)
[2019-09-09] MEDS: MELATONIN 10 MG TABLET PO (22:24)
[2019-09-10] MEDS: 0.9% Saline Lock 10 ML Syringe IV ×2 (03:01→15:00)
[2019-09-10 03:02] VITALS: BP 139/77; PULSE 83; RESP 18; TEMP 37.1; O2SAT 96
[2019-09-10 06:23] LABS: Hematocrit 34.8 % (40-54); Hemoglobin 11.2 g/dL (13.0-16.5); Mean Corp Hgb Conc 32.2 g/dL (32-36); Mean Corpuscular Hgb 29.1 pg (27.0-32.0); Mean Corpuscular Volume 90.4 fL (80-94); Mean Platelet Vol. 11.2 fl (6.2-12.0); Platelet Count 317 K/mm3 (150-450); RBC Distribution Width SD 46.2 fl (35.1-43.9); Red Blood Count 3.85 M/mm3 (4.6-6.2); White Blood Count 10.8 K/mm3 (4.4-11.0)
[2019-09-10 06:45] LABS: ALB/GLOB Ratio 0.5 RATIO (0.9-2.4); AST(SGOT) 102 U/L (15-37); Alanine Aminotransfer ALT/SGPT 95 U/L (16-61); Albumin, Serum 1.9 g/dL (3.2-5.0); Alkaline Phosphatase 265 U/L (45-117); Anion Gap 6 (5-15); BUN 54 mg/dL (7-18); BUN/Creat Ratio 19.5 RATIO (10-20); Calcium,Total 7.4 mg/dL (8.5-10.1); Chloride 111 mmol/L (98-107); Creatinine, Serum 2.77 mg/dL (0.70-1.30); EST Glomerular Filtration Rate 23 mL/min (>60); Est Glom Filt Rate - Afr Amer 28 mL/min (>60); Estimated Creatinine Clearance 20.56 ml/min; Globulin 4.2 g/dL (2.2-4.2); Glucose 105 mg/dL (74-106); Potassium 3.8 mmol/L (3.5-5.1); Protein, Total 6.1 g/dL (6.4-8.2); Sodium Level 143 mmol/L (136-145)
--- NOTE | 2019-09-10 07:32 | PCM.PN.SRG ---
Patient Problems: Active and Suspected Problems Choledocholithiasis (Acute) ALYSON (acute kidney injury) (Acute) Obstructive uropathy (Acute) Subjective: Patient continues to have flatus but he is very distended. He did tolerate a clear liquid diet. - Physical Exam Vitals/I&O's: Vital Signs Temp Pulse Resp BP Pulse Ox 98.8 F 83 18 139/77 H 96 09/10/19 03:02 09/10/19 03:02 09/10/19 03:02 09/10/19 03:02 09/10/19 03:02 Oxygen Flow Rate (L/min) 1.5 Oxygen Delivery Method Room Air Weight: 173 lb 8.061 oz Body Mass Index (BMI) 25.9 Intake and Output for Last 24 Hours 09/08/19 09/09/19 09/10/19 23:59 23:59 23:59 Intake Total 729 / 729 700 / 700 300 / 300 Output Total 1550 / 1550 1850 / 1850 1400 / 1400 Balance -821 / -821 -1150 / -1150 -1100 / -1100 General: Alert, Oriented x3 Lungs: Normal air movement Cardiovascular: Regular rate, Regular Rhythm Abdomen: Soft, Distended Laboratory Results 09/05/19 18:50: Eos Smear Total Cells No Eosinophils Seen 09/10/19 06:08: WBC 10.8, RBC 3.85 L, Hgb 11.2 L, Hct 34.8 L, MCV 90.4, MCH 29.1, MCHC 32.2, RDW Std Deviation 46.2 H, RDW Coeff of Ezio 14.0, Plt Count 317, MPV 11.2 09/10/19 06:08: Sodium 143, Potassium 3.8, Chloride 111 H, Carbon Dioxide 26.0, Anion Gap 6, BUN 54 H, Creatinine 2.77 H, Estim Creat Clear Calc 20.56, Est GFR (MDRD) Af Amer 28 L, Est GFR (MDRD) Non-Af 23 L, BUN/Creatinine Ratio 19.5, Glucose 105, Calcium 7.4 L, Total Bilirubin 1.30 H, AST 102 H, ALT 95 H, Alkaline Phosphatase 265 H, Total Protein 6.1 L, Albumin 1.9 L, Globulin 4.2, Albumin/Globulin Ratio 0.5 L Current Medications Albuterol Sulfate (Ventolin Aerosols) 2.5 mg INHALATION Q2H PRN PRN PRN Reason: dyspnea, wheezing Last Admin: 09/09/19 13:52 Dose: 2.5 mg Documented by: Amlodipine Besylate (Norvasc) 5 mg PO DAILY [facility] Last Admin: 09/09/19 10:01 Dose: 5 mg Documented by: Aspirin (Ecotrin) 81 mg PO WeSa@0800 [facility] Last Admin: 09/09/19 10:01 Dose: 81 mg Documented by: Atorvastatin Calcium (Lipitor) 20 mg PO QHS [facility] Last Admin: 09/09/19 22:24 Dose: 20 mg Documented by: Docusate Sodium (Colace) 100 mg PO BID [facility] Last Admin: 09/09/19 22:24 Dose: 100 mg Documented by: Enoxaparin Sodium (Lovenox) 30 mg SC DAILY [facility] Last Admin: 09/09/19 10:17 Dose: 30 mg Documented by: Guaifenesin (Mucinex) 600 mg PO BID PRN PRN Reason: MUCOUS Last Admin: 09/08/19 13:34 Dose: 600 mg Documented by: Melatonin (Melatonin) 10 mg PO QHS [facility] Last Admin: 09/09/19 22:24 Dose: 10 mg Documented by: Morphine Sulfate () 1 mg IV Q2H PRN PRN PRN Reason: Pain Score 6-10/10 Ondansetron HCl (Zofran) 4 mg IV Q6H PRN PRN PRN Reason: NAUSEA Pantoprazole Sodium (Protonix) 20 mg PO DAILY [facility] Last Admin: 09/09/19 10:01 Dose: 20 mg Documented by: Sertraline HCl (Zoloft) 50 mg PO QHS [facility] Last Admin: 09/09/19 22:24 Dose: 50 mg Documented by: Sodium Chloride () 10 - 40 ml IV UD PRN PRN Reason: SALINE FLUSH Last Admin: 09/10/19 03:01 Dose: 10 ml Documented by: Tamsulosin HCl (Flomax) 0.4 mg PO DAILY@1730 [facility] Last Admin: 09/09/19 17:50 Dose: 0.4 mg Documented by: Medical Necessity - Tobacco Use Smoking Status: Never smoker Tobacco Use: Non-smoker Assessment/Plan All Active Problems Choledocholithiasis (Acute) ALYSON (acute kidney injury) (Acute) Obstructive uropathy (Acute) 83-year-old male status post cholecystectomy for acute cholecystitis 1. The patient is having postoperative ileus. He had an x-ray yesterday which showed dilated loops of small and large bowel. I continue to encourage ambulation. His white count is normal. He needs his biliary and pancreatic stent removed at some point but at this time he is still short of breath and very distended. I encouraged ambulation and he may need PT/OT. Octaviano Ramos MD Pager: [facility] [address] [place] [address] Office:
[2019-09-10 09:11] VITALS: BP 138/67; PULSE 86; RESP 14; TEMP 36.4; O2SAT 93
[2019-09-10] MEDS: guaiFENesin 600 MG Tablet PO (09:34)
[2019-09-10] MEDS: Docusate Sodium 100 MG Capsule PO ×2 (09:34→21:27)
[2019-09-10] MEDS: Pantoprazole Sodium 20 MG Tablet PO (09:34)
[2019-09-10] MEDS: Enoxaparin 30 MG/0.3 ML Syringe SC (09:34)
[2019-09-10] MEDS: amLODIPine 5 MG Tablet PO (09:34)
[2019-09-10] MEDS: Albuterol 2.5 MG/3 ML VIAL.NEB. INHALATION (10:12)
[2019-09-10 10:13] VITALS: PULSE 89; RESP 19; O2SAT 92
--- NOTE | 2019-09-10 10:15 | PN_ITS ---
Patient Problems: Active and Suspected Problems Choledocholithiasis (Acute) ALYSON (acute kidney injury) (Acute) Obstructive uropathy (Acute) Reason for Visit: Patient looks short of breath and wheezing. Patient also feels weak. Mild abdominal distention. Passing flatus. Vitals/I&O's: Vital Signs Temp Pulse Resp BP Pulse Ox 97.5 F L 88 20 H 138/67 H 92 09/10/19 09:11 09/10/19 10:13 09/10/19 10:13 09/10/19 09:11 09/10/19 10:13 Oxygen Flow Rate (L/min) 1.5 Oxygen Delivery Method Room Air Weight: 173 lb 8.061 oz Body Mass Index (BMI) 25.9 Intake and Output for Last 24 Hours 09/08/19 09/09/19 09/10/19 23:59 23:59 23:59 Intake Total 729 / 729 700 / 700 300 / 300 Output Total 1550 / 1550 1850 / 1850 1400 / 1400 Balance -821 / -821 -1150 / -1150 -1100 / -1100 General: Alert, Oriented x3, Cooperative HEENT: Atraumatic, PERRLA, EOMI, Normocephalic Neck: Supple, No JVD, Negative Carotid Bruits Lungs: Diminished - Entry diminished bilaterally., Rhonchi, Wheezes Cardiovascular: Regular rate, Regular Rhythm, Normal S1, Normal S2, No murmurs Abdomen: Bowel Sounds Present, Soft, Non Tender, Hypoactive Bowel Sounds, Distended Extremities: Capillary Refill Less than 3 Seconds, Edema Skin: No rashes, No breakdown Musculoskeletal: No Tenderness to Palpation of Joints or Extremities, Arthritic Changes Neurological: Cranial nerves II-XII grossly intact, Deep Tendon Reflexes 2+/4 and Symmetrical, Neuro grossly intact Psych/Mental Status: Normal Affect, Appropriate Laboratory Results 09/05/19 18:50: Eos Smear Total Cells No Eosinophils Seen 09/10/19 06:08: WBC 10.8, RBC 3.85 L, Hgb 11.2 L, Hct 34.8 L, MCV 90.4, MCH 29.1, MCHC 32.2, RDW Std Deviation 46.2 H, RDW Coeff of Ezio 14.0, Plt Count 317, MPV 11.2 09/10/19 06:08: Sodium 143, Potassium 3.8, Chloride 111 H, Carbon Dioxide 26.0, Anion Gap 6, BUN 54 H, Creatinine 2.77 H, Estim Creat Clear Calc 20.56, Est GFR (MDRD) Af Amer 28 L, Est GFR (MDRD) Non-Af 23 L, BUN/Creatinine Ratio 19.5, Glucose 105, Calcium 7.4 L, Total Bilirubin 1.30 H, AST 102 H, ALT 95 H, Alkaline Phosphatase 265 H, Total Protein 6.1 L, Albumin 1.9 L, Globulin 4.2, Albumin/Globulin Ratio 0.5 L Current Medications Albuterol Sulfate (Ventolin Aerosols) 2.5 mg INHALATION Q2H PRN PRN PRN Reason: dyspnea, wheezing Last Admin: 09/10/19 10:12 Dose: 2.5 mg Documented by: Amlodipine Besylate (Norvasc) 5 mg PO DAILY [facility] Last Admin: 09/10/19 09:34 Dose: 5 mg Documented by: Aspirin (Ecotrin) 81 mg PO WeSa@0800 [facility] Last Admin: 09/09/19 10:01 Dose: 81 mg Documented by: Atorvastatin Calcium (Lipitor) 20 mg PO QHS [facility] Last Admin: 09/09/19 22:24 Dose: 20 mg Documented by: Colchicine (Colchicine) 0.3 mg PO DAILY [facility] Docusate Sodium (Colace) 100 mg PO BID [facility] Last Admin: 09/10/19 09:34 Dose: 100 mg Documented by: Enoxaparin Sodium (Lovenox) 30 mg SC DAILY [facility] Last Admin: 09/10/19 09:34 Dose: 30 mg Documented by: Guaifenesin (Mucinex) 600 mg PO BID PRN PRN Reason: MUCOUS Last Admin: 09/10/19 09:34 Dose: 600 mg Documented by: Hydrocortisone (Hytone) 1 applic TOPICAL BID [facility]; Protocol Melatonin (Melatonin) 10 mg PO QHS [facility] Last Admin: 09/09/19 22:24 Dose: 10 mg Documented by: Morphine Sulfate () 1 mg IV Q2H PRN PRN PRN Reason: Pain Score 6-10/10 Ondansetron HCl (Zofran) 4 mg IV Q6H PRN PRN PRN Reason: NAUSEA Pantoprazole Sodium (Protonix) 20 mg PO DAILY [facility] Last Admin: 09/10/19 09:34 Dose: 20 mg Documented by: Sertraline HCl (Zoloft) 50 mg PO QHS [facility] Last Admin: 09/09/19 22:24 Dose: 50 mg Documented by: Sodium Chloride () 10 - 40 ml IV UD PRN PRN Reason: SALINE FLUSH Last Admin: 09/10/19 03:01 Dose: 10 ml Documented by: Tamsulosin HCl (Flomax) 0.4 mg PO DAILY@1730 [facility] Last Admin: 09/09/19 17:50 Dose: 0.4 mg Documented by: STROKE Vital Signs/Narrative: Vital Signs Temp Pulse Resp BP Pulse Ox 09/10/19 10:13 88 20 H 92 09/10/19 09:11 97.5 F L 86 14 138/67 H 93 Medical Necessity - Tobacco Use Smoking Status: Never smoker Tobacco Use: Non-smoker Assessment/Plan All Active Problems Choledocholithiasis (Acute) ALYSON (acute kidney injury) (Acute) Obstructive uropathy (Acute) Patient is an 83-year-old gentleman admitted with right upper quadrant abdominal pain found to have choledocholithiasis underwent ERCP on 09/03/[address] Aniya hutson. Subsequently developed acute pancreatitis. Plan is for patient to undergo laparoscopic cholecystectomy on 09/07/2019. 1. Gallstone pancreatitis. ?Patient presented with right upper quadrant abdominal pain found to have choledocholithiasis underwent ERCP on 09/03/2019. Subsequently developed gallstone pancreatitis which did worsen ERCP. General surgery has been on consult. -09/09/2019 s/p laparoscopic cholecystectomy on 09/07/2019, abdomen is still remains distended, plan is to advance diet once abdomen distension subsides as per Gen Surgery 09/10 2019: Patient had lap mireya on 09/07/2019 and had respiratory distress in PACU. Currently patient abdomen is still distended. Abdomen x-ray on 09/09 shows dilated small bowel and colon down to the rectum. It is consistent with ileus. 2. Acute hypoxic respiratory failure - Postoperative period following laparoscopic cholecystectomy on 09/07/2019 Complicated by hypoxia patient was assessed to be in acute hypoxic respiratory failure. Patient was transferred to the intensive care unit placed on noninvasive ventilation BiPAP. Patient had Lasix. Previous chest x-ray shows left lung base possible small pleural effusion, underlying atelectasis/infiltrate. 09/10: Patient seen mild short of breath. Repeat chest x-ray portable ordered. Lasix 40 mg IV 1 dose ordered and BNP ordered. 2D echo ordered. Patient still has 1.7+ fluid balance. Incentive spirometry and chest physiotherapy increased. 3. Acute urinary retention ?Patient had a Franklin catheter placed consult placed to Dr. Vero bains with urology, patient started on Flomax -Patient's Franklin catheter was removed and had to be reinserted during the evening of 09/08/2019. Plans for patient to be discharged with Franklin catheter and to follow-up with Dr. Eden as outpatient 4. Acute kidney injury ?Do suspect obstructive uropathy patient creatinine from 619 was 1.21, on 08/31/2019 was 4.84. 09/10: Kidney function is improving. Nephrology on board. 5. Hypertension ~ blood pressure controlled, home medications continued with dose adjustment as needed 6. Dyslipidemia ~patient is on statin therapy, continued at home dose 7. Depression ?Patient is on SSRI 8. DVT Prophylaxis ?SCDs for now with plans to initiate chemoprophylaxis following patient procedure 9. Constipation Treated symptomatically Advance planning; full code with intubation and CPR pending further discussion with his . Code Visit Inpatient E&M: 56058 Subs Hosp L2
[2019-09-10] MEDS: Bisacodyl 10 MG Suppository RECTAL (11:21)
[2019-09-10 14:16] VITALS: BP 138/70; PULSE 86; RESP 13; TEMP 36.7; O2SAT 94
[2019-09-10 14:24] VITALS: RESP 13
--- NOTE | 2019-09-10 14:44 | RAD_ITS ---
STUDY: X-RAY CHEST REASON FOR EXAM: Male, 83 years old. Patient looked short of breath, wheezing, abdominal distention TECHNIQUE: Single AP portable view of the chest. COMPARISON: Comparison is made with prior study dated September 07, 2019. FINDINGS: Mild residual increased markings in the left lower lobe with blunting of the left costophrenic angle. This has improved. Normal size heart. Normal mediastinum and odette. Normal visualized pulmonary arteries. There is atherosclerotic tortuosity of the aortic arch and descending thoracic aorta. There are diffuse degenerative changes of the visualized thoracic spine. There is degenerative osteoarthritis of the bilateral shoulders. There is no demonstrated abnormality of the visualized soft tissue structures of the upper abdomen. RAD/Chest 1 View (Portable) IMPRESSION: Improved aeration of the left lung base. Mild residual changes persist. Electronically Signed: Delmar Durbin, at 15:27 EST , Service support ,
--- NOTE | 2019-09-10 14:46 | ECHOD_ITS ---
Reason For Study: PLEURAL EFFUSION, SOB Procedure This was a 2D Doppler, Color Flow transthoracic echocardiogram. Exam performed portable in patient room. Left Ventricle Normal size and thickness. The estimated ejection fraction is 55 %. No evidence for diastolic dysfunction. No regional wall motion abnormalities noted. Right Ventricle Normal RV size. Normal systolic function. Atria Normal left atrium. Normal right atrium. No doppler evidence for ASD. Mitral Valve There is no mitral valve stenosis. Trivial mitral valve insufficiency. Tricuspid Valve There is no tricuspid stenosis. Unable to estimate RV systolic pressure due to insufficient tricuspid regurgitant envelope. Trivial tricuspid valve insufficiency. Aortic Valve Trisinus/trileaflet aortic valve. There is no aortic stenosis. No aortic valve insufficiency. Pulmonic Valve There is no pulmonic valvular stenosis. Trivial pulmonic valve insufficiency. Great Vessels Normal aortic root. Pericardium/Pleural No pericardial effusion. MMode/2D Measurements & Calculations LVIDd: 4.4 cm IVSd: 0.92 cm Ao root diam: 3.3 cm LVIDs: 2.9 cm LVPWd: 0.97 cm RVDd: 3.0 cm FS: 34.4 % LAV(MOD-bp): 46.1 ml LVAd ap4: 30.9 cm2 SV(MOD-sp4): 62.2 ml LAV(MOD-bp) Indexed: 23.7 ml/m2 EDV(MOD-sp4): 99.5 ml LAV(MOD-sp2): 40.6 ml EDV(sp4-el): 106.2 ml LAV(MOD-sp4): 48.9 ml LVAs ap4: 16.5 cm2 ESV(MOD-sp4): 37.3 ml ESV(sp4-el): 39.0 ml EF(MOD-sp4): 62.5 % EF(sp4-el): 63.3 % SV(sp4-el): 67.2 ml LA A4 area: 17.4 cm2 LA dimension(2D): 3.7 cm RA A4 area: 15.3 cm2 Time Measurements MV dec time: 0.21 sec Doppler Measurements & Calculations MV E max marcos: 49.2 cm/sec Lat Peak E' Marcos: 9.2 cm/sec Med Peak E' Marcos: 6.8 cm/sec MV A max marcos: 89.1 cm/sec E/E' lat: 5.4 E/E' med: 7.2 MV E/A: 0.55 Ao V2 max: 153.0 cm/sec LV V1 max: 136.6 cm/sec PA V2 max: 127.1 cm/sec Ao max P.4 mmHg LV V1 max P.5 mmHg TR max marcos: 279.9 cm/sec TR max P.3 mmHg Interpretation Summary The estimated ejection fraction is 55 %. No evidence for diastolic dysfunction. Trivial mitral valve insufficiency. Ordering Physician: Chaka Hung Referring Physician: Octaviano Ramos Performed By: Emily Sky RDCS
[2019-09-10] MEDS: Furosemide 40 MG/4 ML Vial IV (15:00)
[2019-09-10 15:49] LABS: BNP,B-Type NATRIURETIC PEPTIDE 28.4 pg/mL (0-100)
--- NOTE | 2019-09-10 17:44 | PCM.PN.REN ---
Patient Problems: Active and Suspected Problems Choledocholithiasis (Acute) ALYSON (acute kidney injury) (Acute) Obstructive uropathy (Acute) Subjective: Following for ALYSON. Pt feels better. No CP, SOB or nausea. No edema. Still on clear liquid diet today. - Physical Exam Vitals/I&O's: Vital Signs Temp Pulse Resp BP Pulse Ox 98.0 F 86 13 138/70 H 94 09/10/19 14:16 09/10/19 14:16 09/10/19 14:24 09/10/19 14:16 09/10/19 14:16 Oxygen Flow Rate (L/min) 1.5 Oxygen Delivery Method Room Air Weight: 78.7 kg Body Mass Index (BMI) 25.9 Intake and Output for Last 24 Hours 09/08/19 09/09/19 09/10/19 23:59 23:59 23:59 Intake Total 729 / 729 700 / 700 300 / 300 Output Total 1550 / 1550 1850 / 1850 1900 / 1900 Balance -821 / -821 -1150 / -1150 -1600 / -1600 General: Alert, Oriented x3 HEENT: Atraumatic Oral: Moist Mucosa Neck: Supple Lungs: Clear to auscultation Cardiovascular: Normal S1, Normal S2, No murmurs Abdomen: Soft, Non Tender, Distended Extremities: No edema Laboratory Results 09/10/19 06:08: WBC 10.8, RBC 3.85 L, Hgb 11.2 L, Hct 34.8 L, MCV 90.4, MCH 29.1, MCHC 32.2, RDW Std Deviation 46.2 H, RDW Coeff of Ezio 14.0, Plt Count 317, MPV 11.2 09/10/19 06:08: Sodium 143, Potassium 3.8, Chloride 111 H, Carbon Dioxide 26.0, Anion Gap 6, BUN 54 H, Creatinine 2.77 H, Estim Creat Clear Calc 20.56, Est GFR (MDRD) Af Amer 28 L, Est GFR (MDRD) Non-Af 23 L, BUN/Creatinine Ratio 19.5, Glucose 105, Calcium 7.4 L, Total Bilirubin 1.30 H, AST 102 H, ALT 95 H, Alkaline Phosphatase 265 H, Total Protein 6.1 L, Albumin 1.9 L, Globulin 4.2, Albumin/Globulin Ratio 0.5 L 09/10/19 06:08: B-Natriuretic Peptide 28.4 Current Medications Albuterol Sulfate (Ventolin Aerosols) 2.5 mg INHALATION Q2H PRN PRN PRN Reason: dyspnea, wheezing Last Admin: 09/10/19 10:12 Dose: 2.5 mg Documented by: Amlodipine Besylate (Norvasc) 5 mg PO DAILY [facility] Last Admin: 09/10/19 09:34 Dose: 5 mg Documented by: Aspirin (Ecotrin) 81 mg PO WeSa@0800 [facility] Last Admin: 09/09/19 10:01 Dose: 81 mg Documented by: Atorvastatin Calcium (Lipitor) 20 mg PO QHS [facility] Last Admin: 09/09/19 22:24 Dose: 20 mg Documented by: Colchicine (Colchicine) 0.3 mg PO DAILY [facility] Last Admin: 09/10/19 11:52 Dose: 0.3 mg Documented by: Docusate Sodium (Colace) 100 mg PO BID [facility] Last Admin: 09/10/19 09:34 Dose: 100 mg Documented by: Enoxaparin Sodium (Lovenox) 30 mg SC DAILY [facility] Last Admin: 09/10/19 09:34 Dose: 30 mg Documented by: Guaifenesin (Mucinex) 600 mg PO BID PRN PRN Reason: MUCOUS Last Admin: 09/10/19 09:34 Dose: 600 mg Documented by: Hydrocortisone (Hytone) 1 applic TOPICAL BID [facility]; Protocol Last Admin: 09/10/19 11:52 Dose: Not Given Documented by: Melatonin (Melatonin) 10 mg PO QHS [facility] Last Admin: 09/09/19 22:24 Dose: 10 mg Documented by: Morphine Sulfate () 1 mg IV Q2H PRN PRN PRN Reason: Pain Score 6-10/10 Ondansetron HCl (Zofran) 4 mg IV Q6H PRN PRN PRN Reason: NAUSEA Pantoprazole Sodium (Protonix) 20 mg PO DAILY [facility] Last Admin: 09/10/19 09:34 Dose: 20 mg Documented by: Sertraline HCl (Zoloft) 50 mg PO QHS [facility] Last Admin: 09/09/19 22:24 Dose: 50 mg Documented by: Sodium Chloride () 10 - 40 ml IV UD PRN PRN Reason: SALINE FLUSH Last Admin: 09/10/19 15:00 Dose: 10 ml Documented by: Tamsulosin HCl (Flomax) 0.4 mg PO DAILY@1730 [facility] Last Admin: 09/09/19 17:50 Dose: 0.4 mg Documented by: Medical Necessity - Tobacco Use Smoking Status: Never smoker Tobacco Use: Non-smoker Assessment/Plan All Active Problems Choledocholithiasis (Acute) ALYSON (acute kidney injury) (Acute) Obstructive uropathy (Acute) 1. Acute kidney injury. Unknown baseline. No prior lab before 09/03/19. His SCr was 6.85 mg/dL on 09/03/19 with slow but gradual improvement of renal function. No hydronephrosis seen on US. Suspect ALYSON is most likely due to ATN related to pancreatitis rather than obstruction (I would have expected quicker improvement of renal function if ALYSON is primarily from obstruction). He is nonoliguric. No need for kidney replacement therapy. Keep I=O. Avoid nephrotoxins such as IV contrast or NSAID. Recheck SCr/electrolytes in am. Current medications are reviewed and are appropriately dosed for current CrCl. 2. Choledocholithiasis. c/b gall stone pancreatitis. Has ileus. Management as per hospital medicine service and surgery. 3. Acute on chronic urinary retention. Doubt this is the primary cause of ALYSON. See above. [place] in place. Voiding trial as per [facility] service.
[2019-09-10] MEDS: Tamsulosin HCl 0.4 MG Capsule PO (17:49)
[2019-09-10 19:34] VITALS: BP 150/69; PULSE 95; RESP 20; TEMP 37.6; O2SAT 94
[2019-09-10] MEDS: MELATONIN 10 MG TABLET PO (21:27)
[2019-09-10] MEDS: Hydrocortisone 2.5% Crm 1 APPLIC TOPICAL (21:27)
[2019-09-10] MEDS: Sertraline 50 MG Tablet PO (21:27)
[2019-09-10] MEDS: Atorvastatin Calcium 20 MG Tablet PO (21:27)
[2019-09-11 02:07] VITALS: BP 147/74; PULSE 80; RESP 20; TEMP 36.7; O2SAT 95
[2019-09-11 07:14] LABS: Absolute Lymphocyte Count 0.75 X10^3/uL (0.83-4.51); Absolute Neutrophil Count 11.7 X10^3/uL (2.0-7.7); Basophil# 0.04 X10^3/uL; Basophil% 0.3 % (0-1); Eosinophils% 2.9 % (0-5); Hemoglobin 12.2 g/dL (13.0-16.5); Lymphocyte # 0.75 X10^3/ul (4.0); Lymphocyte % 5.5 % (19-41); Mean Corp Hgb Conc 32.1 g/dL (32-36); Mean Corpuscular Hgb 29.6 pg (27.0-32.0); Mean Corpuscular Volume 92.2 fL (80-94); Mean Platelet Vol. 10.9 fl (6.2-12.0); Monocyte# 0.72 X10^3/uL; Monocyte% 5.2 % (0-10); NRBC Flagged by Analyzer 0 % (0-5); Neutrophil # 11.69 X10^3/uL (2.7-7.7); Neutrophil % 85.2 % (47-70); Platelet Count 326 K/mm3 (150-450); RBC Distribution Width CV 13.6 % (11.6-14.6); RBC Distribution Width SD 45.7 fl (35.1-43.9); Red Blood Count 4.12 M/mm3 (4.6-6.2); White Blood Count 13.7 K/mm3 (4.4-11.0)
[2019-09-11 07:28] LABS: ALB/GLOB Ratio 0.4 RATIO (0.9-2.4); AST(SGOT) 87 U/L (15-37); Alanine Aminotransfer ALT/SGPT 93 U/L (16-61); Alkaline Phosphatase 253 U/L (45-117); Anion Gap 7 (5-15); BUN 47 mg/dL (7-18); BUN/Creat Ratio 18.3 RATIO (10-20); Calcium,Total 7.5 mg/dL (8.5-10.1); Chloride 110 mmol/L (98-107); Creatinine, Serum 2.57 mg/dL (0.70-1.30); EST Glomerular Filtration Rate 26 mL/min (>60); Est Glom Filt Rate - Afr Amer 31 mL/min (>60); Estimated Creatinine Clearance 22.16 ml/min; Globulin 4.5 g/dL (2.2-4.2); Glucose 123 mg/dL (74-106); Potassium 3.6 mmol/L (3.5-5.1); Protein, Total 6.5 g/dL (6.4-8.2); Sodium Level 142 mmol/L (136-145)
--- NOTE | 2019-09-11 08:02 | PN.SURG_ITS ---
Patient Problems: Active and Suspected Problems Choledocholithiasis (Acute) ALYSON (acute kidney injury) (Acute) Obstructive uropathy (Acute) Subjective: I gave the patient a Dulcolax suppository yesterday and he did respond with a small bowel movement. He says he is passing flatus with no nausea or vomiting. - Physical Exam Vitals/I&O's: Vital Signs Temp Pulse Resp BP Pulse Ox 98.0 F 80 20 H 147/74 H 95 09/11/19 02:07 09/11/19 02:07 09/11/19 02:07 09/11/19 02:07 09/11/19 02:07 Oxygen Flow Rate (L/min) 4 Oxygen Delivery Method CPAP Weight: 171 lb 8.314 oz Body Mass Index (BMI) 25.9 Intake and Output for Last 24 Hours 09/09/19 09/10/19 09/11/19 23:59 23:59 23:59 Intake Total 700 / 700 400 / 400 Output Total 1850 / 1850 3150 / 3150 650 / 650 Balance -1150 / -1150 -2750 / -2750 -650 / -650 General: Alert Neck: No JVD Cardiovascular: Regular rate, Regular Rhythm Abdomen: Soft, Non Tender, Non-Distended Laboratory Results 09/10/19 06:08: B-Natriuretic Peptide 28.4 09/11/19 05:06: WBC 13.7 H, RBC 4.12 L, Hgb 12.2 L, Hct 38.0 L, MCV 92.2, MCH 29.6, MCHC 32.1, RDW Std Deviation 45.7 H, RDW Coeff of Ezio 13.6, Plt Count 326, MPV 10.9, Immature Gran % (Auto) 0.900, Neut % (Auto) 85.2 H, Lymph % (Auto) 5.5 L, [place] % (Auto) 5.2, Eos % (Auto) 2.9, Baso % (Auto) 0.3, Absolute Neuts (auto) 11.7 H, Absolute Lymphs (auto) 0.75 L, Nucleated RBC % 0 09/11/19 05:06: Sodium 142, Potassium 3.6, Chloride 110 H, Carbon Dioxide 25.0, Anion Gap 7, BUN 47 H, Creatinine 2.57 H, Estim Creat Clear Calc 22.16, Est GFR (MDRD) Af Amer 31 L, Est GFR (MDRD) Non-Af 26 L, BUN/Creatinine Ratio 18.3, Glucose 123 H, Calcium 7.5 L, Total Bilirubin 1.30 H, AST 87 H, ALT 93 H, Alkaline Phosphatase 253 H, Total Protein 6.5, Albumin 2.0 L, Globulin 4.5 H, Albumin/Globulin Ratio 0.4 L Current Medications Albuterol Sulfate (Ventolin Aerosols) 2.5 mg INHALATION Q2H PRN PRN PRN Reason: dyspnea, wheezing Last Admin: 09/10/19 10:12 Dose: 2.5 mg Documented by: Amlodipine Besylate (Norvasc) 5 mg PO DAILY [facility] Last Admin: 09/10/19 09:34 Dose: 5 mg Documented by: Aspirin (Ecotrin) 81 mg PO WeSa@0800 [facility] Last Admin: 09/09/19 10:01 Dose: 81 mg Documented by: Atorvastatin Calcium (Lipitor) 20 mg PO QHS [facility] Last Admin: 09/10/19 21:27 Dose: 20 mg Documented by: Colchicine (Colchicine) 0.3 mg PO DAILY [facility] Last Admin: 09/10/19 11:52 Dose: 0.3 mg Documented by: Docusate Sodium (Colace) 100 mg PO BID [facility] Last Admin: 09/10/19 21:27 Dose: 100 mg Documented by: Enoxaparin Sodium (Lovenox) 30 mg SC DAILY [facility] Last Admin: 09/10/19 09:34 Dose: 30 mg Documented by: Guaifenesin (Mucinex) 600 mg PO BID PRN PRN Reason: MUCOUS Last Admin: 09/10/19 09:34 Dose: 600 mg Documented by: Hydrocortisone (Hytone) 1 applic TOPICAL BID [facility]; Protocol Last Admin: 09/10/19 21:27 Dose: 1 applicatio Documented by: Melatonin (Melatonin) 10 mg PO QHS [facility] Last Admin: 09/10/19 21:27 Dose: 10 mg Documented by: Morphine Sulfate () 1 mg IV Q2H PRN PRN PRN Reason: Pain Score 6-10/10 Ondansetron HCl (Zofran) 4 mg IV Q6H PRN PRN PRN Reason: NAUSEA Pantoprazole Sodium (Protonix) 20 mg PO DAILY [facility] Last Admin: 01/30/20 09:34 Dose: 20 mg Documented by: Sertraline HCl (Zoloft) 50 mg PO QHS [facility] Last Admin: 09/10/19 21:27 Dose: 50 mg Documented by: Sodium Chloride () 10 - 40 ml IV UD PRN PRN Reason: SALINE FLUSH Last Admin: 09/10/19 15:00 Dose: 10 ml Documented by: Tamsulosin HCl (Flomax) 0.4 mg PO DAILY@1730 [facility] Last Admin: 09/10/19 17:49 Dose: 0.4 mg Documented by: Medical Necessity - Tobacco Use Smoking Status: Never smoker Tobacco Use: Non-smoker Assessment/Plan All Active Problems Choledocholithiasis (Acute) ALYSON (acute kidney injury) (Acute) Obstructive uropathy (Acute) 83-year-old male status post ERCP and laparoscopic cholecystectomy 1. Patient's abdomen is softer and less distended. I will advance him to a regular diet. His white count did go up today but I am unsure of the cause. He is not having any abdominal pain and he is passing flatus and having no nausea or vomiting. 2. Patient does have indwelling catheter for obstruction. It is possible that he is experiencing a UTI. At this time the patient's abdomen is soft and he was diuresed yesterday with Lasix. The plan from my standpoint is to perform an outpatient ERCP next week to remove his biliary and pancreatic stents. Octaviano Ramos MD Pager: [facility] [address] [place] [address], [address] [place] [address] Office:
--- NOTE | 2019-09-11 09:33 | PCM.DC ---
- Discharge Diagnoses Current Active Problems: Current Active and Chronic Problems Choledocholithiasis (Acute) GERD (gastroesophageal reflux disease) (Chronic) HTN (hypertension) (Chronic) BPH (benign prostatic hyperplasia) (Chronic) ALYSON (acute kidney injury) (Acute) Obstructive uropathy (Acute) You will use the following diet at home:: Cardiac Weight Bearing Status: Weight bearing as tolerated Call your doctor if you observe: Fever of 101 or Higher, Coldness, Increased Pain, Numbness or Tingling, Inability to urinate, Inability to have a bowel movement, Shortness of breath, Dizziness, Fainting spells, Swelling in the ankles, Chest pain, Prolonged hiccoughing, Increased palpitations (irregular heartbeat), Calf discomfort, Uncontrolled pain Additional Instructions: Colchicine dose is decreased to 0.3 mg as per creatinine clearance. At home patient was on 0.6 mg twice daily as needed for gouty attack. Currently patient said his right ankle is painful Allergies/Adverse Reactions: Allergies Penicillins Adverse Reaction (Verified 09/03/19 15:51) Hives Medications to take at Discharge Ascorbic Acid [Vitamin C] 1,000 mg PO DAILY 09/03/19 Aspirin [Aspir 81] 81 mg PO WESA 09/03/19 Cod Liver Oil 118 ml PO DAILY 09/03/19 Lactobacillus Acidophilus [Acidophilus] 1 ea PO BID 09/03/19 Lutein 40 mg PO DAILY 09/03/19 Meclizine HCl 12.5 mg PO Q6H PRN PRN 09/03/19 Melatonin/Pyridoxine [Melatonin 5 mg Tablet] 2 ea PO QHS 09/03/19 [place]-3 Fatty Acids/Fish Oil [Fish Oil 1,000 mg Capsule] 1 cap PO DAILY 09/03/19 Omeprazole 20 mg PO DAILY 09/03/19 Rosuvastatin Calcium 10 mg PO DAILY 09/03/19 Sertraline HCl 50 mg PO QHS 09/03/19 Vit A/Vit C/Vit E/Zinc/Copper [Preservision Areds Softgel] 1 dose PO BID 09/03/19 Amlodipine Besylate 10 mg PO DAILY #30 tab 09/11/19 Colchicine 0.3 mg PO DAILY tab 09/11/19 Guaifenesin [Mucinex] 600 mg PO BID #14 tab 09/11/19 The following prescriptions were given: Amlodipine Besylate 10 mg PO DAILY #30 tab Transmission Status: Pending to [facility] Guaifenesin [Mucinex] 600 mg PO BID #14 tab Transmission Status: Pending to [facility] Primary Care Physician: Care Physician,No Primary [Primary Care Provider] - Please follow up with your Primary Care Physician in: in 2 weeks Test Results: Test results from this visit will be discussed in further detail at your follow-up appointment, if applicable. Please Follow Up With: Octaviano Ramos MD When: in 1 week for outpatient ERCP Please Follow Up With: Michael Kruse MD When: in 3-4 weeks for chronic lung disease
[2019-09-11] MEDS: Pantoprazole Sodium 20 MG Tablet PO (10:33)
[2019-09-11] MEDS: amLODIPine 5 MG Tablet PO (10:33)
[2019-09-11] MEDS: Docusate Sodium 100 MG Capsule PO (10:33)
[2019-09-11] MEDS: Hydrocortisone 2.5% Crm 1 APPLIC TOPICAL (10:34)
[2019-09-11] MEDS: Morphine 2 MG/ML Syringe 1 MG IV (10:45)
[2019-09-11] MEDS: Enoxaparin 30 MG/0.3 ML Syringe SC (10:45)
[2019-09-11] MEDS: 0.9% Saline Lock 10 ML Syringe IV ×2 (10:46→14:28)
[2019-09-11 11:00] VITALS: BP 123/66; PULSE 95; RESP 18; TEMP 36.3; O2SAT 92
--- NOTE | 2019-09-11 12:36 | PCM.DC.SUM ---
Discharge Date and Diagnosis - Problem List Patient Problems: Active and Suspected Problems Choledocholithiasis (Acute) ALYSON (acute kidney injury) (Acute) Obstructive uropathy (Acute) Date of Admission: 09/03/19 Date of Discharge: 09/11/19 - Primary Discharge Diagnosis Active and Suspected Problems Choledocholithiasis (Acute) ALYSON (acute kidney injury) (Acute) Obstructive uropathy (Acute) - Secondary Discharge Diagnosis Chronic Problems GERD (gastroesophageal reflux disease) (Chronic) HTN (hypertension) (Chronic) BPH (benign prostatic hyperplasia) (Chronic) Hospital Course and Treatment Summary of Care Provided: [] Patient is an 83-year-old gentleman admitted with right upper quadrant abdominal pain found to have choledocholithiasis underwent ERCP on 09/03/[address] Ramos. Subsequently developed acute pancreatitis. Plan is for patient to undergo laparoscopic cholecystectomy on 09/07/2019. 1. Gallstone pancreatitis. ?Patient presented with right upper quadrant abdominal pain found to have choledocholithiasis underwent ERCP on 09/03/2019. Subsequently developed gallstone pancreatitis which did worsen ERCP. General surgery has been on consult. -09/09/2019 s/p laparoscopic cholecystectomy on 09/07/2019, abdomen is still remains distended, plan is to advance diet once abdomen distension subsides as per Gen Surgery 09/10 2019: Patient had lap mireya on 09/07/2019 and had respiratory distress in PACU. Currently patient abdomen is still distended. Abdomen x-ray on 09/09 shows dilated small bowel and colon down to the rectum. It is consistent with ileus. 09/11: Patient passed flatus and had bowel movement. Abdomen is much less distended. Started on regular diet and discharge later today. Mild leukocytosis, 13.7 thousand. Patient denies any new complaint except left ankle and knee pain. Patient has history of gout and I think probably leukocytosis from gouty exacerbation. Patient already started on colchicine on 09/10 and pain is better. 2. Acute hypoxic respiratory failure - Postoperative period following laparoscopic cholecystectomy on 09/07/2019 Complicated by hypoxia patient was assessed to be in acute hypoxic respiratory failure. Patient was transferred to the intensive care unit placed on noninvasive ventilation BiPAP. Patient had Lasix. Previous chest x-ray shows left lung base possible small pleural effusion, underlying atelectasis/infiltrate. 09/10: Patient seen mild short of breath. Repeat chest x-ray portable ordered. Lasix 40 mg IV 1 dose ordered and BNP ordered. 2D echo ordered. Patient still has 1.7+ fluid balance. Incentive spirometry and chest physiotherapy increased. 09/11: Shortness of breath is resolved. Patient has chronic wheezing. Chest x-ray independently reviewed. Improved ventilation and aeration. Mild residual left lower lobe blunting, possible small effusion or atelectasis 3. Acute urinary retention with Franklin catheter with positive pyuria in U/A on 09/11/2019 with concern of UTI ?Patient had a Franklin catheter placed consult placed to Dr. Vero bains with urology, patient started on Flomax -Patient's Franklin catheter was removed and had to be reinserted during the evening of 09/08/2019. 09/11: Patient had leukocytosis, UA with reflex urine culture was done. Patient is not expected to have lower enteric symptoms while on Franklin catheter. UA shows LE 500, WBC 25-50 cells, nitrite negative urine bacteria 0. Empirically patient was given ceftriaxone 1 g IV 1 dose after 40 mg of IV Solu-Medrol as patient has history of hives as penicillin allergy. Checked with the nurse and patient did not had any symptoms or signs of allergy including hives. Discharged on 5 more days of cefadroxil 500 mg twice daily. Will follow urine culture with PCP and if urine culture is negative or colony count less than 1000, can discontinue antibiotic. Patient is being discharged on Franklin catheter. Follow-up with Dr. Eden as an outpatient 4. Acute kidney injury ?Do suspect obstructive uropathy patient creatinine from 619 was 1.21, on 08/31/2019 was 4.84. 09/10: Kidney function is improving. Nephrology on board. 09/11: Kidney function is improving. Follow-up with dry can tender as an outpatient. 5. Hypertension ~ blood pressure controlled, home medications continued with dose adjustment as needed 6. Dyslipidemia ~patient is on statin therapy, continued at home dose 7. Depression ?Patient is on SSRI 8. DVT Prophylaxis ?SCDs for now with plans to initiate chemoprophylaxis following patient procedure 9. Constipation Treated symptomatically Advance planning; full code with intubation and CPR Discharge medication reconciliation done. Discharge follow-up instructions completed. Discharge process discussed with the patient and all questions were answered to patient's satisfaction. Total time spent, exact 35 minutes on discharge meds reconciliation, examination, coordination of care with nurses and ancillary staff, consultants, review of imaging and blood test and discussion with the patient on follow-up instructions Laboratory Results 09/11/19 05:06: Sodium 142, Potassium 3.6, Chloride 110 H, Carbon Dioxide 25.0, Anion Gap 7, BUN 47 H, Creatinine 2.57 H, Estim Creat Clear Calc 22.16, Est GFR (MDRD) Af Amer 31 L, Est GFR (MDRD) Non-Af 26 L, BUN/Creatinine Ratio 18.3, Glucose 123 H, Calcium 7.5 L, Total Bilirubin 1.30 H, AST 87 H, ALT 93 H, Alkaline Phosphatase 253 H, Total Protein 6.5, Albumin 2.0 L, Globulin 4.5 H, Albumin/Globulin Ratio 0.4 L 09/11/19 12:25: Urine Color Yellow, Urine Clarity Sl. Cloudy, Urine pH 6.0, Ur Specific [place] 1.020, Urine Protein 30 H, Urine Glucose (UA) Normal, Urine Ketones Negative, Urine Occult Blood 250 H, Urine Nitrite Negative, Urine Bilirubin Negative, Urine Urobilinogen 4 H, Ur Leukocyte Esterase 500 H, Urine RBC 0 SEEN, Urine WBC 25-50 SEEN, Ur Squamous Epith Cells 0 SEEN, Urine Bacteria 0 SEEN, Urine Mucus 0 SEEN Laboratory Results 09/10/19 06:08: B-Natriuretic Peptide 28.4 09/11/19 05:06: WBC 13.7 H, RBC 4.12 L, Hgb 12.2 L, Hct 38.0 L, MCV 92.2, MCH 29.6, MCHC 32.1, RDW Std Deviation 45.7 H, RDW Coeff of Ezio 13.6, Plt Count 326, MPV 10.9, Immature Gran % (Auto) 0.900, Neut % (Auto) 85.2 H, Lymph % (Auto) 5.5 L, [place] % (Auto) 5.2, Eos % (Auto) 2.9, Baso % (Auto) 0.3, Absolute Neuts (auto) 11.7 H, Absolute Lymphs (auto) 0.75 L, Nucleated RBC % 0 09/11/19 05:06: Sodium 142, Potassium 3.6, Chloride 110 H, Carbon Dioxide 25.0, Anion Gap 7, BUN 47 H, Creatinine 2.57 H, Estim Creat Clear Calc 22.16, Est GFR (MDRD) Af Amer 31 L, Est GFR (MDRD) Non-Af 26 L, BUN/Creatinine Ratio 18.3, Glucose 123 H, Calcium 7.5 L, Total Bilirubin 1.30 H, AST 87 H, ALT 93 H, Alkaline Phosphatase 253 H, Total Protein 6.5, Albumin 2.0 L, Globulin 4.5 H, Albumin/Globulin Ratio 0.4 L Patient Problems: Active and Suspected Problems Choledocholithiasis (Acute) ALYSON (acute kidney injury) (Acute) Obstructive uropathy (Acute) Objective: Complain of pain over knee. Earlier patient had complain of left ankle similar gouty exacerbation for which colchicine was started yesterday. Pain ankle is better. 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 He also claims to have secondhand smoking. He had PFT but does not know the result. Patient has not seen shake table operator as an outpatient. Patient moved bowel of Dulcolax suppository. Abdomen is much better with less distention and tenderness. - Physical Exam Vitals/I&O's: Vital Signs Temp Pulse Resp BP Pulse Ox 98.0 F 80 20 H 147/74 H 95 09/11/19 02:07 09/11/19 02:07 09/11/19 02:07 09/11/19 02:07 09/11/19 02:07 Oxygen Flow Rate (L/min) 4 Oxygen Delivery Method CPAP Weight: 171 lb 8.314 oz Body Mass Index (BMI) 25.9 Intake and Output for Last 24 Hours 09/09/19 09/10/19 09/11/19 23:59 23:59 23:59 Intake Total 700 / 700 400 / 400 Output Total 1850 / 1850 3150 / 3150 650 / 650 Balance -1150 / -1150 -2750 / -2750 -650 / -650 General: Alert, Oriented x3, Cooperative HEENT: Atraumatic, PERRLA, EOMI, Normocephalic Neck: Supple, No JVD, Negative Carotid Bruits Lungs: Diminished, Wheezes Cardiovascular: Regular rate, Regular Rhythm, Normal S1, Normal S2, No murmurs Abdomen: Bowel Sounds Present, Soft, Non-Distended, Tender - Very slight tenderness. Extremities: No edema, Capillary Refill Less than 3 Seconds Skin: No rashes, No breakdown Musculoskeletal: Arthritic Changes - Bilateral knee arthritis, Tenderness - Tenderness in left ankle. Neurological: Cranial nerves II-XII grossly intact, Deep Tendon Reflexes 2+/4 and Symmetrical, Neuro grossly intact Psych/Mental Status: Normal Affect, Appropriate Laboratory Results 09/10/19 06:08: B-Natriuretic Peptide 28.4 09/11/19 05:06: WBC 13.7 H, RBC 4.12 L, Hgb 12.2 L, Hct 38.0 L, MCV 92.2, MCH 29.6, MCHC 32.1, RDW Std Deviation 45.7 H, RDW Coeff of Ezio 13.6, Plt Count 326, MPV 10.9, Immature Gran % (Auto) 0.900, Neut % (Auto) 85.2 H, Lymph % (Auto) 5.5 L, [place] % (Auto) 5.2, Eos % (Auto) 2.9, Baso % (Auto) 0.3, Absolute Neuts (auto) 11.7 H, Absolute Lymphs (auto) 0.75 L, Nucleated RBC % 0 09/11/19 05:06: Sodium 142, Potassium 3.6, Chloride 110 H, Carbon Dioxide 25.0, Anion Gap 7, BUN 47 H, Creatinine 2.57 H, Estim Creat Clear Calc 22.16, Est GFR (MDRD) Af Amer 31 L, Est GFR (MDRD) Non-Af 26 L, BUN/Creatinine Ratio 18.3, Glucose 123 H, Calcium 7.5 L, Total Bilirubin 1.30 H, AST 87 H, ALT 93 H, Alkaline Phosphatase 253 H, Total Protein 6.5, Albumin 2.0 L, Globulin 4.5 H, Albumin/Globulin Ratio 0.4 L Current Medications Albuterol Sulfate (Ventolin Aerosols) 2.5 mg INHALATION Q2H PRN PRN PRN Reason: dyspnea, wheezing Last Admin: 09/10/19 10:12 Dose: 2.5 mg Documented by: Amlodipine Besylate (Norvasc) 5 mg PO DAILY [facility] Last Admin: 09/10/19 09:34 Dose: 5 mg Documented by: Aspirin (Ecotrin) 81 mg PO WeSa@0800 [facility] Last Admin: 09/09/19 10:01 Dose: 81 mg Documented by: Atorvastatin Calcium (Lipitor) 20 mg PO QHS [facility] Last Admin: 09/10/19 21:27 Dose: 20 mg Documented by: Colchicine (Colchicine) 0.3 mg PO DAILY [facility] Last Admin: 09/10/19 11:52 Dose: 0.3 mg Documented by: Docusate Sodium (Colace) 100 mg PO BID [facility] Last Admin: 09/10/19 21:27 Dose: 100 mg Documented by: Enoxaparin Sodium (Lovenox) 30 mg SC DAILY [facility] Last Admin: 09/10/19 09:34 Dose: 30 mg Documented by: Guaifenesin (Mucinex) 600 mg PO BID PRN PRN Reason: MUCOUS Last Admin: 09/10/19 09:34 Dose: 600 mg Documented by: Hydrocortisone (Hytone) 1 applic TOPICAL BID [facility]; Protocol Last Admin: 09/10/19 21:27 Dose: 1 applicatio Documented by: Melatonin (Melatonin) 10 mg PO QHS [facility] Last Admin: 09/10/19 21:27 Dose: 10 mg Documented by: Morphine Sulfate () 1 mg IV Q2H PRN PRN PRN Reason: Pain Score 6-10/10 Ondansetron HCl (Zofran) 4 mg IV Q6H PRN PRN PRN Reason: NAUSEA Pantoprazole Sodium (Protonix) 20 mg PO DAILY [facility] Last Admin: 09/10/19 09:34 Dose: 20 mg Documented by: Sertraline HCl (Zoloft) 50 mg PO QHS [facility] Last Admin: 09/10/19 21:27 Dose: 50 mg Documented by: Sodium Chloride () 10 - 40 ml IV UD PRN PRN Reason: SALINE FLUSH Last Admin: 09/10/19 15:00 Dose: 10 ml Documented by: Tamsulosin HCl (Flomax) 0.4 mg PO DAILY@1730 [facility] Last Admin: 09/10/19 17:49 Dose: 0.4 mg Documented by: Weight Bearing Status: Weight bearing as tolerated Call your doctor if you observe: Fever of 101 or Higher, Coldness, Increased Pain, Numbness or Tingling, Inability to urinate, Inability to have a bowel movement, Shortness of breath, Dizziness, Fainting spells, Swelling in the ankles, Chest pain, Prolonged hiccoughing, Increased palpitations (irregular heartbeat), Calf discomfort, Uncontrolled pain Home Medications: Medications to take at Discharge Ascorbic Acid [Vitamin C] 1,000 mg PO DAILY 09/03/19 Aspirin [Aspir 81] 81 mg PO WESA 09/03/19 Cod Liver Oil 118 ml PO DAILY 09/03/19 Lactobacillus Acidophilus [Acidophilus] 1 ea PO BID 09/03/19 Lutein 40 mg PO DAILY 09/03/19 Meclizine HCl 12.5 mg PO Q6H PRN PRN 09/03/19 Melatonin/Pyridoxine [Melatonin 5 mg Tablet] 2 ea PO QHS 09/03/19 Husser-3 Fatty Acids/Fish Oil [Fish Oil 1,000 mg Capsule] 1 cap PO DAILY 09/03/19 Omeprazole 20 mg PO DAILY 09/03/19 Rosuvastatin Calcium 10 mg PO DAILY 09/03/19 Sertraline HCl 50 mg PO QHS 09/03/19 Vit A/Vit C/Vit E/Zinc/Copper [Preservision Areds Softgel] 1 dose PO BID 09/03/19 Amlodipine Besylate 10 mg PO DAILY #30 tab 09/11/19 Cefadroxil [Duracef] 500 mg PO BID #10 cap 09/11/19 Colchicine 0.3 mg PO DAILY tab 09/11/19 Guaifenesin [Mucinex] 600 mg PO BID #14 tab 09/11/19 Tamsulosin HCl [Flomax] 0.4 mg PO DAILY #30 cap 09/11/19 Following Prescrptions Were Given to Patient: Amlodipine Besylate 10 mg PO DAILY #30 tab Transmission Status: Received by [facility] Cefadroxil [Duracef] 500 mg PO BID #10 cap Transmission Status: Received by [facility] Tamsulosin HCl [Flomax] 0.4 mg PO DAILY #30 cap Transmission Status: Received by [facility] Guaifenesin [Mucinex] 600 mg PO BID #14 tab Transmission Status: Received by [facility] Primary Care Physician: Care Physician,No Primary [Primary Care Provider] - Please follow up with your Primary Care Physician in: in 2 weeks Please Follow Up With: Octaviano Ramos MD When: in 1 week for outpatient ERCP Please Follow Up With: Michael Kruse MD When: in 3-4 weeks for chronic lung disease Please Follow Up With: Oksana Quick MD When: in 2 weeks Please Follow Up With: Duy Eden MD When: in 1 week. discharged on [place] [facility] Necessity - Tobacco Use Smoking Status: Never smoker Tobacco Use: Non-smoker Meaningful Use Info Meaningful Use Diagnoses (Choose all that apply): None applicable Code Visit Inpatient E&M: 92065 Disch Hosp
[2019-09-11 12:40] LABS: Bacteria 0 SEEN /hpf (None Seen); Mucous, Urine 0 SEEN /hpf (<or=2+); Red Blood Cells-Urine 0 SEEN /hpf (0-5); Squamous Epithelial Cells - UA 0 SEEN /hpf (0-5)
[2019-09-11 12:51] LABS: Color, Urine Yellow (Yellow); Glucose, Dipstick Normal (Normal); Ketone-Dipstick Negative (Negative); Leukocyte Esterase-Dipstick 500 /ul (Negative); Nitrite-Dipstick Negative (Negative); Occult Blood-Urine 250 /ul (Negative); Protein-Dipstick 30 mg/dl (Negative); Urine Bilirubin Dipstick Negative (Negative); Urine Clarity Sl. Cloudy (Clear); Urine Urobilinogen 4 mg/dl (Normal)
[2019-09-11 12:59] LABS: White Blood Cells 25-50 SEEN /hpf (0-5)
--- NOTE | 2019-09-11 13:31 | CASEMGMT ---
CARMEN BAE in to discuss discharge planning with patient and family. Patient and family would like [facility] at discharge. RN CATALINO provided list to family. After reviewing, patient and family would like [facility]. RN CATALINO sent referral to [facility] and they are able to accept the patient. Family inquiring regarding assistance with scheduling follow-up appts. This RN CM scheduled patient's follow-up appts, see DC Follow-up appt. RN CM printed list of follow-up appts and gave to . Patient and family voiced no further needs or concerns at this time.
--- NOTE | 2019-09-11 14:07 | PCM.PN.REN ---
Patient Problems: Active and Suspected Problems Choledocholithiasis (Acute) ALYSON (acute kidney injury) (Acute) Obstructive uropathy (Acute) Subjective: Denies worsening respiratory status No nausea No vomiting. No SOB No weak urinary stream - Physical Exam Vitals/I&O's: Vital Signs Temp Pulse Resp BP Pulse Ox 97.4 F L 95 18 123/66 H 92 09/11/19 11:00 09/11/19 11:00 09/11/19 11:00 09/11/19 11:00 09/11/19 11:00 Oxygen Flow Rate (L/min) 4 Oxygen Delivery Method Room Air Weight: 77.8 kg Body Mass Index (BMI) 25.9 Intake and Output for Last 24 Hours 09/09/19 09/10/19 09/11/19 23:59 23:59 23:59 Intake Total 700 / 700 400 / 400 Output Total 1850 / 1850 3150 / 3150 650 / 650 Balance -1150 / -1150 -2750 / -2750 -650 / -650 General: Alert, Oriented x3 HEENT: Atraumatic Oral: Moist Mucosa Neck: Supple, No JVD Lungs: Clear to auscultation, Normal air movement, No rhonchi Cardiovascular: Regular rate, Regular Rhythm, Normal S1 Abdomen: Bowel Sounds Present, Soft, Non Tender, Non-Distended Extremities: No clubbing, No cyanosis, No edema Musculoskeletal: No Tenderness to Palpation of Joints or Extremities, No Muscle Wasting Lymphatic: No Cervical, Supraclavicular, or Inguinal Adenopathy Neurological: Cranial nerves II-XII grossly intact, Neuro grossly intact Psych/Mental Status: Appropriate Laboratory Results 09/10/19 06:08: B-Natriuretic Peptide 28.4 09/11/19 05:06: WBC 13.7 H, RBC 4.12 L, Hgb 12.2 L, Hct 38.0 L, MCV 92.2, MCH 29.6, MCHC 32.1, RDW Std Deviation 45.7 H, RDW Coeff of Ezio 13.6, Plt Count 326, MPV 10.9, Immature Gran % (Auto) 0.900, Neut % (Auto) 85.2 H, Lymph % (Auto) 5.5 L, [place] % (Auto) 5.2, Eos % (Auto) 2.9, Baso % (Auto) 0.3, Absolute Neuts (auto) 11.7 H, Absolute Lymphs (auto) 0.75 L, Nucleated RBC % 0 09/11/19 05:06: Sodium 142, Potassium 3.6, Chloride 110 H, Carbon Dioxide 25.0, Anion Gap 7, BUN 47 H, Creatinine 2.57 H, Estim Creat Clear Calc 22.16, Est GFR (MDRD) Af Amer 31 L, Est GFR (MDRD) Non-Af 26 L, BUN/Creatinine Ratio 18.3, Glucose 123 H, Calcium 7.5 L, Total Bilirubin 1.30 H, AST 87 H, ALT 93 H, Alkaline Phosphatase 253 H, Total Protein 6.5, Albumin 2.0 L, Globulin 4.5 H, Albumin/Globulin Ratio 0.4 L 09/11/19 12:25: Urine Color Yellow, Urine Clarity Sl. Cloudy, Urine pH 6.0, Ur Specific [place] 1.020, Urine Protein 30 H, Urine Glucose (UA) Normal, Urine Ketones Negative, Urine Occult Blood 250 H, Urine Nitrite Negative, Urine Bilirubin Negative, Urine Urobilinogen 4 H, Ur Leukocyte Esterase 500 H, Urine RBC 0 SEEN, Urine WBC 25-50 SEEN, Ur Squamous Epith Cells 0 SEEN, Urine Bacteria 0 SEEN, Urine Mucus 0 SEEN Current Medications Albuterol Sulfate (Ventolin Aerosols) 2.5 mg INHALATION Q2H PRN PRN PRN Reason: dyspnea, wheezing Last Admin: 09/10/19 10:12 Dose: 2.5 mg Documented by: Amlodipine Besylate (Norvasc) 5 mg PO DAILY [facility] Last Admin: 09/11/19 10:33 Dose: 5 mg Documented by: Aspirin (Ecotrin) 81 mg PO WeSa@0800 [facility] Last Admin: 09/09/19 10:01 Dose: 81 mg Documented by: Atorvastatin Calcium (Lipitor) 20 mg PO QHS [facility] Last Admin: 09/10/19 21:27 Dose: 20 mg Documented by: Colchicine (Colchicine) 0.3 mg PO DAILY [facility] Last Admin: 09/11/19 10:33 Dose: 0.3 mg Documented by: Docusate Sodium (Colace) 100 mg PO BID [facility] Last Admin: 09/11/19 10:33 Dose: 100 mg Documented by: Enoxaparin Sodium (Lovenox) 30 mg SC DAILY [facility] Last Admin: 09/11/19 10:45 Dose: 30 mg Documented by: Guaifenesin (Mucinex) 600 mg PO BID PRN PRN Reason: MUCOUS Last Admin: 09/10/19 09:34 Dose: 600 mg Documented by: Hydrocortisone (Hytone) 1 applic TOPICAL BID [facility]; Protocol Last Admin: 09/11/19 10:34 Dose: 1 applicatio Documented by: Ceftriaxone Sodium (Rocephin) 1 gm in 50 mls @ 100 mls/hr IV X1 ONE Stop: 09/11/19 14:06 Melatonin (Melatonin) 10 mg PO QHS [facility] Last Admin: 09/10/19 21:27 Dose: 10 mg Documented by: Methylprednisolone (Solu-Medrol) 40 mg IV X1 ONE Stop: 09/11/19 13:42 Morphine Sulfate () 1 mg IV Q2H PRN PRN PRN Reason: Pain Score 6-10/10 Last Admin: 09/11/19 10:45 Dose: 1 mg Documented by: Ondansetron HCl (Zofran) 4 mg IV Q6H PRN PRN PRN Reason: NAUSEA Pantoprazole Sodium (Protonix) 20 mg PO DAILY [facility] Last Admin: 09/11/19 10:33 Dose: 20 mg Documented by: Sertraline HCl (Zoloft) 50 mg PO QHS [facility] Last Admin: 09/10/19 21:27 Dose: 50 mg Documented by: Sodium Chloride () 10 - 40 ml IV UD PRN PRN Reason: SALINE FLUSH Last Admin: 09/11/19 10:46 Dose: 10 ml Documented by: Tamsulosin HCl (Flomax) 0.4 mg PO DAILY@1730 [facility] Last Admin: 09/10/19 17:49 Dose: 0.4 mg Documented by: Medical Necessity - Tobacco Use Smoking Status: Never smoker Tobacco Use: Non-smoker Assessment/Plan All Active Problems Choledocholithiasis (Acute) ALYSON (acute kidney injury) (Acute) Obstructive uropathy (Acute) 1. Acute kidney injury. Unknown baseline. No prior lab before 09/03/19. His SCr was 6.85 mg/dL on 09/03/19 with slow but gradual improvement of renal function.last 24 hrs Cr trend 2.7->2.5 mg/dL No hydronephrosis seen on US. Suspect ALYSON is most likely due to ATN related to pancreatitis rather than obstruction (I would have expected quicker improvement of renal function if ALYSON is primarily from obstruction). He is nonoliguric. No need for kidney replacement therapy. Keep I=O. Avoid nephrotoxins such as IV contrast or NSAID. Recheck SCr/electrolytes in am. Current medications are reviewed and are appropriately dosed for current CrCl. 2. Choledocholithiasis. c/b gall stone pancreatitis. Had ileus.Now resolved Management as per hospital medicine service and surgery. 3. Acute on chronic urinary retention. Doubt this is the primary cause of ALYSON. See above. resolved
[2019-09-11] MEDS: Ceftriaxone 1 GM/50 ML BAG IV (14:28)
[2019-09-11 15:30] VITALS: BP 132/71; PULSE 95; RESP 18; TEMP 37.2; O2SAT 93
== END 2019-09-11 15:40 | disposition home or self-care (01) | DRG 417 ==
LOC: MS3 09-07 07:51 → ICU 09-07 19:38 → MS3 09-08 12:49
PROVIDERS: Internal Medicine; Internal Medicine Nephrology; Physician Assistant; Admitting Provider Family Medicine; Referring Provider Surgery; Visit Provider Internal Medicine
PROC: (CPT 43260; principal; 2019-09-03 14:30)
PROC: 0FT44ZZ Resection of Gallbladder, Percutaneous Endoscopic Approach (ICD-10-PCS; CPT 47610; principal; 2019-09-07 13:15)
DX: K85.10 Biliary acute pancreatitis without necrosis or infection (principal); J95.821 Acute postprocedural respiratory failure; K56.7 Ileus, unspecified; N13.8 Other obstructive and reflux uropathy; N17.9 Acute kidney failure, unspecified; K80.70 Calculus of gallbladder and bile duct without cholecystitis without obstruction; I10 Essential (primary) hypertension; G47.33 Obstructive sleep apnea (adult) (pediatric); E78.5 Hyperlipidemia, unspecified; F32.9 Major depressive disorder, single episode, unspecified; N40.1 Benign prostatic hyperplasia with lower urinary tract symptoms; K21.9 Gastro-esophageal reflux disease without esophagitis; I44.0 Atrioventricular block, first degree
CPT/HCPCS: 36415; 36600; 71045; 74018; 74019; 74300; 74330; 76000; 76770; 80053; 81001; 82570; 82803; 83690; 83735; 83880; 84300; 84484; 85025; 85027; 85610; 85730; 87077; 87086; 87088; 87184; 87186; 87205; 87633; 88304; 93005; 93306; 94640; 94667; 94668; 97116; 97161; 97165; 97530; 99251; J7120; Q9957; A4216; C1769; G0463; J1610; J1940; J2405

== ENCOUNTER 2019-09-16 09:13 | Day surgery (SDC) | payer MEDICARE, OTHER, SELFPAY ==
[2019-09-11 11:51] VITALS: BMI 25.9
--- NOTE | 2019-09-16 09:23 | EKG12_ITS ---
Test Reason : PRE OP Blood Pressure : / mmHG Vent. Rate : 067 BPM Atrial Rate : 067 BPM P-R Int : 220 ms QRS Dur : 092 ms QT Int : 432 ms P-R-T Axes : 020 -19 -05 degrees QTc Int : 456 ms Sinus rhythm with 1st degree A-V block Otherwise normal ECG When compared with ECG of 07-SEP-2019 20:40, T wave amplitude has increased in Anterior leads Confirmed by TIM DODGE ([id number]), purchasing expeditor WILBERT MONZON ([id number]) on 09/18/2019 9:52:25 AM Referred By: Octaviano Ramos Confirmed By:TIM DODGE
--- NOTE | 2019-09-16 09:38 | PCM.HP.STD ---
Problem List (1) History of biliary stent insertion Status: Acute (2) Choledocholithiasis Status: Acute History of Present Illness Date of Admission: 09/16/19 The patient is a 83 year old M Here for stent removal. The patient had choledocholithiasis and underwent ERCP with pancreatic and biliary stent placement. Patient subsequently developed pancreatitis and was in the hospital with postoperative ileus. The patient then had laparoscopic cholecystectomy with cholangiogram which showed a possible stone still in the common bile duct. Patient had a complicated course due to urinary obstruction and UTI. Patient reports rash from the antibiotics. Past Medical History Past Medical History (Chronic Problems): Chronic Problems GERD (gastroesophageal reflux disease) (Chronic) HTN (hypertension) (Chronic) BPH (benign prostatic hyperplasia) (Chronic) Allergies Penicillins Adverse Reaction (Verified 09/15/19 14:53) Hives Home Medications: Ambulatory Orders Medication Instructions Recorded Ascorbic Acid [Vitamin C] 1,000 mg PO DAILY 09/03/19 Aspirin [Aspir 81] 81 mg PO WESA 09/03/19 Cod Liver Oil 118 ml PO DAILY 09/03/19 Lactobacillus Acidophilus 1 ea PO BID 09/03/19 [Acidophilus] Lutein 40 mg PO DAILY 09/03/19 Meclizine HCl 12.5 mg PO Q6H PRN PRN 09/03/19 Melatonin/Pyridoxine [Melatonin 5 2 ea PO QHS 09/03/19 mg Tablet] [place]-3 Fatty Acids/Fish Oil [Fish 1 cap PO DAILY 09/03/19 Oil 1,000 mg Capsule] Omeprazole 20 mg PO DAILY 09/03/19 Rosuvastatin Calcium 10 mg PO DAILY 09/03/19 Sertraline HCl 50 mg PO QHS 09/03/19 Vit A/Vit C/Vit E/Zinc/Copper 1 dose PO BID 09/03/19 [Preservision Areds Softgel] Amlodipine Besylate 10 mg PO DAILY #30 tab 09/11/19 Cefadroxil [Duracef] 500 mg PO BID #10 cap 09/11/19 Colchicine 0.3 mg PO DAILY tab 09/11/19 Tamsulosin HCl [Flomax] 0.4 mg PO DAILY #30 cap 09/11/19 Guaifenesin [Mucinex] 600 mg PO BID PRN 09/15/19 Prednisone mg PO DAILY 09/15/19 Surgical History: TURP Psychiatric History: Depression Smoking Status: Never smoker - *Family History Maternal History Items: Stroke Paternal History Items: Cancer - prostate Review of Systems Constitutional: Denies: Anorexia, Fever Gastrointestinal: Denies: Abdominal Pain, Nausea Genitourinary: Reports: Retention Skin: Reports: Rash Neurological: Denies: Balance problems VTE Information - Inpt Only VTE Present on Admission: No VTE Mechan Device Prophylaxis: SCD's Patient Problems: Active and Suspected Problems History of biliary stent insertion (Acute) - Physical Exam Vitals/I&O's: Body Mass Index (BMI) 25.9 General: Alert, Oriented x3 Neck: No JVD Lungs: Normal air movement Cardiovascular: Regular rate, Regular Rhythm Abdomen: Soft, Non Tender, Non-Distended Assessment/Plan All Active Problems Choledocholithiasis (Acute) ALYSON (acute kidney injury) (Acute) Obstructive uropathy (Acute) History of biliary stent insertion (Acute) 83-year-old male for ERCP and stent removal 1. I will take the patient today for ERCP with pancreatic and biliary stent removal and clear the remaining stone from his common bile duct. The patient is aware of the risks of the procedure including knowledge of bleeding, perforation of the bowel or bile duct, pancreatitis. Octaviano Ramos MD Pager: [facility] [address] [place] [address] [address] [place] [address] Office:
[2019-09-16] MEDS: Lactated Ringers 1,000 ML 100 ML IV (09:47)
[2019-09-16 09:48] VITALS: BP 144/65; PULSE 76; RESP 18; TEMP 36.9; O2SAT 96; BMI 26.2
--- NOTE | 2019-09-16 10:30 | RAD_ITS ---
CLINICAL HISTORY: 83-year-old male. Pain, stent removal. COMPARISON: None. TECHNIQUE: 2 image(s) of an ERCP performed by Physician: Octaviano Ramos were submitted for evaluation. FINDINGS: 2 intraprocedural fluoroscopic images are identified. Endoscope is seen in place. There is cannulation of the common bile duct with opacification of the common bile duct. No focal abnormality is definitively identified. The soft tissues and osseous structures are unremarkable. RAD/ERCP Biliary Only IMPRESSION: 2 fluoroscopic images from an ERCP. Please see operative report for further details. Electronically Signed: Farhan Castillo, at 21:53 EST Tel , Service support ,
--- NOTE | 2019-09-16 11:03 | OP.ERCP_ITS ---
Patient Name: Hosea Peterson Procedure Date: 09/16/2019 9:24 AM Date of : 1935 Age: 83 Procedure: ERCP Indications: Follow-up of bile duct stone(s), Biliary stent removal, Pancreatic stent removal Providers: Octaviano Ramos MD Referring MD: Octaviano Ramos MD Medicines: General Anesthesia Patient Profile: This is an 83 year old male. Refer to note in patient chart for documentation of history and physical. Complications: No immediate complications. Estimated blood loss: Minimal. Procedure: Pre-Anesthesia Assessment: - Prior to the procedure, a History and Physical was performed, and patient medications and allergies were reviewed. The patient's tolerance of previous anesthesia was also reviewed. The risks and benefits of the procedure and the sedation options and risks were discussed with the patient. All questions were answered, and informed consent was obtained. Prior Anticoagulants: The patient has taken no previous anticoagulant or antiplatelet agents. After reviewing the risks and benefits, the patient was deemed in satisfactory condition to undergo the procedure. After obtaining informed consent, the scope was passed under direct vision. Throughout the procedure, the patient's blood pressure, pulse, and oxygen saturations were monitored continuously. The [id number] endoscope was introduced through the mouth, and advanced to the duodenum and used to inject contrast into the bile duct. The ERCP was accomplished without difficulty. The patient tolerated the procedure well. Scope In: 10:47:08 AM Scope Out: 10:53:53 AM Total Procedure Duration Time 0 hours 6 minutes 45 seconds Findings: Two stents were removed from the biliary tree and the pancreatic duct using a snare. A 0.035 inch x 260 cm straight Dreamwire was passed into the biliary tree. The biliary tree was swept with a 12 mm balloon starting at the bifurcation. Debris was swept from the duct. There were no remaining stones in the common bile duct at the end of the procedure. Guidewire was removed from CBD and scope was removed from the patient. Impression: - Two stents were removed from the biliary tree and the pancreatic duct. - The biliary tree was swept and debris was found. Recommendation: - Discharge patient to home. - Resume previous diet. - Return to my office in 2 weeks. Procedure Code(s): --- Professional --- 48191, Endoscopic retrograde cholangiopancreatography (ERCP); with removal of foreign body(s) or stent(s) from biliary/pancreatic duct(s) Diagnosis Code(s): --- Professional --- Z46.59, Encounter for fitting and adjustment of other gastrointestinal appliance and device K80.50, Calculus of bile duct without cholangitis or cholecystitis without obstruction CPT copyright 2017 [employer]. All rights reserved. The codes documented in this report are preliminary and upon short filler bunch machine operator review may be revised to meet current compliance requirements. Octaviano Ramos MD 09/16/2019 11:03:18 AM This report has been signed electronically. Number of Addenda: 0 Note Initiated On: 09/16/2019 9:24 AM
--- NOTE | 2019-09-16 11:03 | OP.CCLET_ITS ---
09/16/2019 No Primary Care Physician Re : ERCP procedure for Hosea Peterson Dear Care Physician This procedure was performed on Monday, September 16, 2019. My impressions and recommendations are as follows: Impressions : - Two stents were removed from the biliary tree and the pancreatic duct. - The biliary tree was swept and debris was found. Recommendations : - Discharge patient to home. - Resume previous diet. - Return to my office in 2 weeks. My findings are described in the full procedure note, which is enclosed. If I can be of further assistance, please feel free to contact me at Doctor phone number(s): , Work: . Sincerely, Octaviano Ramos MD 09/16/2019 11:03:18 AM This report has been signed electronically.
[2019-09-16 11:05] VITALS: BP 138/54; BP 144/65; PULSE 83; RESP 16; TEMP 36.5; O2SAT 96
[2019-09-16 11:15] VITALS: BP 136/60; BP 144/65; PULSE 72; RESP 16; O2SAT 95
[2019-09-16 11:32] VITALS: BP 127/69; BP 144/65; PULSE 73; RESP 16; O2SAT 93
[2019-09-16 11:45] VITALS: BP 135/63; BP 144/65; PULSE 68; RESP 16; TEMP 36.6; O2SAT 97
[2019-09-16 12:09] VITALS: BP 144/65
== END 2019-09-16 12:13 | disposition home or self-care (01) ==
LOC: EN 09:15 → AC 09:22
PROVIDERS: PCP Student in an Organized Health Care Education/Training Program; Referring Provider Surgery; Visit Provider Surgery
PROC: (CPT 43260; principal; 2019-09-16 10:00)
DX: Z46.59 Encounter for fitting and adjustment of other gastrointestinal appliance and device (principal); K80.50 Calculus of bile duct without cholangitis or cholecystitis without obstruction; K21.9 Gastro-esophageal reflux disease without esophagitis; I10 Essential (primary) hypertension; N40.0 Benign prostatic hyperplasia without lower urinary tract symptoms; Z88.0 Allergy status to penicillin; Z79.82 Long term (current) use of aspirin; G47.30 Sleep apnea, unspecified; F32.9 Major depressive disorder, single episode, unspecified
CPT/HCPCS: 43275; 74328; 76000; 93005; J7120; J2405

== ENCOUNTER → 2019-09-21 10:39 | Outpatient (CLI) | payer MEDICARE, OTHER, SELFPAY ==
[2019-09-16 09:48] VITALS: BMI 26.2
[2019-09-21 11:13] LABS: Hematocrit 38.3 % (40-54); Hemoglobin 12.2 g/dL (13.0-16.5); Mean Corp Hgb Conc 31.9 g/dL (32-36); Mean Corpuscular Hgb 29.8 pg (27.0-32.0); Mean Corpuscular Volume 93.4 fL (80-94); Mean Platelet Vol. 10.3 fl (6.2-12.0); Platelet Count 372 K/mm3 (150-450); RBC Distribution Width CV 13.2 % (11.6-14.6); White Blood Count 10.2 K/mm3 (4.4-11.0)
[2019-09-21 11:49] LABS: Albumin, Serum 2.5 g/dL (3.2-5.0); BUN 40 mg/dL (7-18); BUN/Creat Ratio 21.1 RATIO (10-20); Calcium,Total 8.2 mg/dL (8.5-10.1); Chloride 109 mmol/L (98-107); EST Glomerular Filtration Rate 36 mL/min (>60); Est Glom Filt Rate - Afr Amer 44 mL/min (>60); Glucose 161 mg/dL (74-106); Phosphorus 3.1 mg/dL (2.5-4.9); Potassium 3.9 mmol/L (3.5-5.1); Sodium Level 140 mmol/L (136-145)
[2019-09-21 11:52] LABS: PTHIN 318.2 pg/mL (18.4-80.1)
== END ==
PROVIDERS: PCP Student in an Organized Health Care Education/Training Program; Referring Provider Internal Medicine Nephrology; Visit Provider Internal Medicine Nephrology
DX: N18.4 Chronic kidney disease, stage 4 (severe) (principal)
CPT/HCPCS: 36415; 80069; 82306; 83970; 85027

== ENCOUNTER → 2020-03-11 23:29 | Outpatient (CLI) | payer MEDICARE, OTHER, SELFPAY ==
[2019-10-05 08:07] VITALS: BMI 25.4
== END ==
PROVIDERS: PCP Student in an Organized Health Care Education/Training Program; Referring Provider Nurse Practitioner Acute Care; Visit Provider Nurse Practitioner Acute Care
DX: G47.33 Obstructive sleep apnea (adult) (pediatric) (principal)
CPT/HCPCS: 95811

== ENCOUNTER → 2020-05-03 12:29 | Outpatient (CLI) | payer MEDICARE, OTHER, SELFPAY ==
[2019-10-05 08:07] VITALS: BMI 25.4
--- NOTE | 2020-05-04 08:23 | PFT ---
INTRODUCTION: The patient is an 84-year-old male that presents for pulmonary function studies secondary to a diagnosis of shortness of breath. Respiratory therapy reports good patient effort. Bronchodilators were used during testing. INTERPRETATION: Forced expiration spirometry demonstrates the presence of a mild large airways obstructive ventilatory defect. There was no significant response to aerosolized bronchodilators. Spirograms are of good quality and do not plateau indicating slow emptying of the lungs. Body plethysmography was performed and revealed an elevated RV to 119% of predicted, indicative of underlying air trapping. Diffusing capacity by single breath CO is within normal limits. IMPRESSION: Irreversible mild large airways obstructive ventilatory defect with associated air trapping and preserved diffusing capacity.
== END ==
PROVIDERS: PCP Student in an Organized Health Care Education/Training Program; Referring Provider Nurse Practitioner Acute Care; Visit Provider Nurse Practitioner Acute Care
DX: R06.02 Shortness of breath (principal)
CPT/HCPCS: 94060; 94726; 94729

== ENCOUNTER → 2025-06-18 | Outpatient (CLI) | payer MEDICARE, OTHER, SELFPAY ==
--- OUTSIDE RECORDS SUMMARY | 2025-06-18 20:01 | XMS RPT_ITS | CCD ---
Author Organization [facility] Care Team Providers Care Director Of Institutional Research Name Role Phone SP POPE DO Primary Care Physician [phone] Derik PT, Radha Unavailable Unavailable HALKO DO, SP Attending Unavailable HALKO DO, SP Primary Care Unavailable HALKO DO, SP Primary Care Unavailable HALKO DO, SP Attending Unavailable JANICE MULTISKILL OPERATOR-BUILDING PRINCIPAL, RANDY CEJA Attending U navailable HALKO DO, PS Primary Care Unavailable JANICE MULTISKILL OPERATOR-BUILDING PRINCIPAL, RANDY CEJA Attending U navailable HALKO DO, SP Primary Care Unavailable BATERS MULTISKILL OPERATOR-BUILDING PRINCIPAL, BRITTANY Attending Unavailabl e HALKO DO, SP Primary Care Unavailable THOMAS HERNANDES, DR MONTEJO Consulting Unavailable PALMER HERNANDES, DELBERT Consulting Unavailable JANICE MULTISKILL OPERATOR-BUILDING PRINCIPAL, RANDY CEJA Attending U navailable HALKO DO, SP Primary Care Unavailable HALKO DO, SP Primary Care Unavailable HALKO DO, SP Attending Unavailable HALKO DO, SP Attending Unavailable HALKO DO, SP Primary Care Unavailable ESTUARDO DUNBAR Attending Unavailable HALKO DO, SP Primary Care Unavailable HALKO DO, SP Attending Unavailable HALKO DO, SP Primary Care Unavailable HALKO DO, SP Attending Unavailable HALKO DO, SP Primary Care Unavailable HALKO DO, SP Attending Unavailable HALKO DO, SP Primary Care Unavailable HALKO DO, SP Primary Care Unavailable CHAMBERS DO, DINAH E Attending Unavailable HALKO DO, SP Primary Care Unavailable CHAMBERS DO, DINAH E Attending Unavailable HALKO DO, SP Primary Care Unavailable CHAMBERS DO, DINAH E Attending Unavailable HALKO DO, SP Attending Unavailable HALKO DO, SP Primary Care Unavailable HALKO DO, SP Attending Unavailable HALKO DO, SP Primary Care Unavailable HALKO DO, SP Attending Unavailable HALKO DO, SP Primary Care Unavailable RAJ ANSARI Attending Unavailable HALKO DO, SP Primary Care Unavailable HALKO DO, SP Attending Unavailable HALKO DO, SP Primary Care Unavailable HALKO DO, SP Attending Unavailable TOSHIA DO, SP Primary Care Unavailable JANICE LIM, RANDY CEJA Attending U jefeailable TOSHIA DO, SP Primary Care Unavailable TOSHIA SAWYER, PS Primary Care Unavailable PALMER HERNANDES, DELBERT Attending Unavailable PALMER HERNANDES, DELBERT Attending Unavailable TOSHIA SAWYER, SP Primary Care Unavailable Yovany CORPORATE CLAIMS EXAMINER, Merly Attending Unavailable Sp Pope Referring Unavailable ToshiaSp Primary Care Unavailable Toshia, Sp Primary Care Unavailable Anna, Sp Attending Unavailable Toshia, Sp Referring Unavailable Allergies Allergy Classification Reported Allergen(s) Allergy Type Date of Onset Reaction(s) Facility (20 sources) Penicillin; Translations: [penicillins] Drug Allergy rash/hives [facility] (1 source) Penicillins Drug allergy (disorder) 06-08-2025 [facility] Repository Medications Current Medications Medication Drug Class(es) Dates Sig (Normalized) Sig (Original) 30 ACTUAT fluticasone furoate 0.05 MG/ACTUAT / vilanterol 0.025 MG/ACTUAT Dry Powder Inhaler [Breo] (2 sources) Start: 04-20-2025 End: 10-17-2025 take 1 dose by inhalation once daily Breo Ellipta 50 mcg-25 mcg/inh. inhalation powder Dose = 1 puff(s), Inhalation, qDay, new dose at the same time every day, # 3 EA, 1 Refill(s), Pharmacy: [facility]/pharmacy #[id number], 175, cm, 04/20/25 11:03:00 EDT, Height, kg, 04/20/25 11:03:00 EDT, Dosing Weight Start Date: 04/20/25 Stop Date: 10/17/25 Status: Ordered Medication Dispense Status: Completed Quantity: 3.0 Unit: EA Total Allowed Fills: 2 Fills Dispensed: 0 alendronic acid 70 mg oral tablet (6 sources) Bisphosphonate Start: 06-05-2021 take 1 tablet by mouth every week alendronate 70 mg oral tablet See Instructions, TAKE 1 TABLET BY MOUTH EVERY WEEK, # 4 tab(s), 6 Refill(s), Pharmacy: [facility] STORE [id number], 170, cm, 05/11/21 11:43:00 EDT, Height, kg, 05/11/21 11:43:00 EDT, Dosing Weight Start Date: 06/05/21 Status: Ordered Start: 05-11-2021 Fosamax 70 mg oral tablet Dose : 70 mg = 1 tab(s), Oral, qWeek, # 4 tab(s), 6 Refill(s), [id number] 170, cm, 05/11/21 11:43:00 EDT, Height, kg, 05/11/21 11:43:00 EDT, Dosing Weight Start Date: 05/11/21 Status: Ordered 24 hr alfuzosin hydrochloride 10 mg extended release oral tablet (20 sources) alpha-Adrenergic Nelson Start: 10-01-2023 End: 08-29-2025 alfuzosin 10 mg oral tablet, extended release Dose : 10 mg = 1 tab(s), Oral, qDay, # 90 tab(s), 1 Refill(s), [id number], 174.5, cm, 03/02/25 8:56:00 EDT, Height, kg, 03/02/25 8:56:00 EDT, Dosing Weight Start Date: 03/02/25 Stop Date: 08/29/25 Status: Ordered Medication Dispense Status: Completed Quantity: 90.0 Unit: tab(s) Total Allowed Fills: 2 Fills Dispensed: 0 Start: 04-02-2023 End: 09-29-2023 alfuzosin 10 mg oral tablet, extended release Dose : 10 mg = 1 tab(s), Oral, qDay, # 90 tab(s), 1 Refill(s), [id number], 175, cm, 04/02/23 11:06:00 EDT, Height, kg, 04/02/23 11:06:00 EDT, Dosing Weight Start Date: 04/02/23 Stop Date: 09/29/23 Status: Ordered Start: 10-02-2022 End: 03-31-2023 alfuzosin 10 mg oral tablet, extended release Dose : 10 mg = 1 tab(s), Oral, qDay, # 90 tab(s), 1 Refill(s), Pharmacy: [facility]/pharmacy #[id number], 175.3, cm, 10/02/22 11:29:00 EST, Height, kg, 10/02/22 11:29:00 EST, Dosing Weight Start Date: 10/02/22 Stop Date: 03/31/23 Status: Ordered Start: 06-26-2021 End: 09-30-2022 alfuzosin 10 mg oral tablet, extended release Dose : 10 mg = 1 tab(s), Oral, qDay, # 90 tab(s), 1 Refill(s), [id number], 175.3, cm, 04/03/22 10:32:00 EDT, Height, kg, 04/03/22 10:32:00 EDT, Dosing Weight Start Date: 04/03/22 Stop Date: 09/30/22 Status: Ordered Start: 11-21-2020 End: 05-20-2021 alfuzosin 10 mg oral tablet, extended release Dose : 10 mg = 1 tab(s), Oral, qDay, # 90 tab(s), 1 Refill(s), [id number], 175, cm, 11/21/20 10:53:00 EDT, Height, kg, 11/21/20 10:53:00 EDT, Dosing Weight Start Date: 11/21/20 Stop Date: 05/20/21 Status: Ordered allopurinol 100 mg oral tablet (20 sources) Xanthine Oxidase Inhibitor Start: 10-01-2023 End: 08-29-2025 allopurinol 100 mg oral tablet Dose : 100 mg = 1 tab(s), Oral, qDayPC, # 90 tab(s), 1 Refill(s), [id number], 174.5, cm, 03/02/25 8:56:00 EDT, Height, kg, 03/02/25 8:56:00 EDT, Dosing Weight Start Date: 03/02/25 Stop Date: 08/29/25 Status: Ordered Medication Dispense Status: Completed Quantity: 90.0 Unit: tab(s) Total Allowed Fills: 2 Fills Dispensed: 0 Start: 04-02-2023 End: 09-29-2023 allopurinol 100 mg oral tabl et Dose : 100 mg = 1 tab(s), Oral, qDayPC, # 90 tab(s), 1 Refill(s), Pharmacy: [facility]/pharmacy #[id number], 175, cm, 04/02/23 11:06:00 EDT, Height, kg, 04/02/23 11:06:00 EDT, Dosing Weight Start Date: 04/02/23 Stop Date: 09/29/23 Status: Ordered Start: 10-02-2022 End: 03-31-2023 allopurinol 100 mg oral tabl et Dose : 100 mg = 1 tab(s), Oral, qDayPC, # 90 tab(s), 1 Refill(s), Pharmacy: [facility]/pharmacy #[id number], 175.3, cm, 10/02/22 11:29:00 EST, Height, kg, 10/02/22 11:29:00 EST, Dosing Weight Start Date: 10/02/22 Stop Date: 03/31/23 Status: Ordered Start: 06-07-2021 End: 09-30-2022 allopurinol 100 mg oral tabl et Dose : 100 mg = 1 tab(s), Oral, qDayPC, # 90 tab(s), 1 Refill(s), Pharmacy: [facility]/pharmacy #[id number], 175.3, cm, 04/03/22 10:32:00 EDT, Height, kg, 04/03/22 10:32:00 EDT, Dosing Weight Start Date: 04/03/22 Stop Date: 09/30/22 Status: Ordered Start: 11-21-2020 End: 05-20-2021 allopurinol 100 mg oral tabl et Dose : 100 mg = 1 tab(s), Oral, qDayPC, # 90 tab(s), 1 Refill(s), Pharmacy: [facility]/pharmacy #[id number], 175, cm, 11/21/20 10:53:00 EDT, Height, kg, 11/21/20 10:53:00 EDT, Dosing Weight Start Date: 11/21/20 Stop Date: 05/20/21 Status: Ordered amLODIPine 10 mg oral tablet (20 sources) Dihydropyridine Calcium Channel Nelson Start: 10-01-2023 End: 08-29-2025 amLODIPine 10 mg oral tablet Dose : 10 mg = 1 tab(s), Oral, qDay, # 90 tab(s), 1 Refill(s), Pharmacy: [facility]/pharmacy #[id number], 174.5, cm, 03/02/25 8:56:00 EDT, Height, kg, 03/02/25 8:56:00 EDT, Dosing Weight Start Date: 03/02/25 Stop Date: 08/29/25 Status: Ordered Medication Dispense Status: Completed Quantity: 90.0 Unit: tab(s) Total Allowed Fills: 2 Fills Dispensed: 0 Start: 04-02-2023 End: 09-29-2023 amLODIPine 10 mg oral tablet Dose : 10 mg = 1 tab(s), Oral, qDay, # 90 tab(s), 1 Refill(s), Pharmacy: [facility]/pharmacy #[id number], 175, cm, 04/02/23 11:06:00 EDT, Height, kg, 04/02/23 11:06:00 EDT, Dosing Weight Start Date: 04/02/23 Stop Date: 09/29/23 Status: Ordered Start: 10-02-2022 End: 03-31-2023 amLODIPine 10 mg oral tablet Dose : 10 mg = 1 tab(s), Oral, qDay, # 90 tab(s), 1 Refill(s), Pharmacy: [facility]/pharmacy #[id number], 175.3, cm, 10/02/22 11:29:00 EST, Height, kg, 10/02/22 11:29:00 EST, Dosing Weight Start Date: 10/02/22 Stop Date: 03/31/23 Status: Ordered Start: 07-10-2021 End: 09-30-2022 amLODIPine 10 mg oral tablet Dose : 10 mg = 1 tab(s), Oral, qDay, # 90 tab(s), 1 Refill(s), Pharmacy: [facility]/pharmacy #[id number], 175.3, cm, 04/03/22 10:32:00 EDT, Height, kg, 04/03/22 10:32:00 EDT, Dosing Weight Start Date: 04/03/22 Stop Date: 09/30/22 Status: Ordered Start: 03-09-2021 amLODIPine 10 mg oral tablet Dose : 10 mg = 1 tab(s), Oral, qDay Start Date: 03/09/21 Status: Ordered ascorbic acid 1000 mg oral tablet (20 sources) Vitamin C Start: 01-17-2015 take 1 dose by mouth once daily Vitamin C Dose : 1,000 mg =, Oral, Daily, 0 Refill(s) Start Date: 01/17/15 Status: Ordered Medication Dispense Status: Completed Total Allowed Fills: 1 Fills Dispensed: 0 Ascorbic Acid / Beta Carotene / cuprous oxide / Vitamin E / Zinc Oxide (4 sources) Vitamin C Start: 01-17-2015 take 1 tablet by mouth once daily PreserVision Dose = 2 tab(s), Oral, qDay, 0 Refill(s) Start Date: 01/17/15 Status: Ordered aspirin 81 mg delayed release oral tablet (20 sources) Platelet Aggregation Inhibitor, Nonsteroidal Anti-inflammatory Drug Start: 01-17-2015 aspirin 81 mg oral delayed release tablet Dose : 81 mg = 1 tab(s), Oral, Saturday & Saturday, 0 Refill(s) Start Date: 01/17/15 Status: Ordered Medication Dispense Status: Completed Total Allowed Fills: 1 Fills Dispensed: 0 Start: 01-17-2015 aspirin 81 mg oral delayed release tablet Dose : 81 mg = 1 tab(s), Oral, Saturday & Saturday, 0 Refill(s) Start Date: 01/17/15 Status: Ordered azelastine hydrochloride 0.137 mg/actuat metered dose nasal spray (20 sources) Histamine-1 Receptor Antagonist Start: 03-02-2025 End: 08-29-2025 azelastine 137 mcg/inh (0.1%) nasal spray 137 mcg Dose = 1 spray(s), Nostril, each, BID, PRN as needed for allergy symptoms, # 30 mL, 5 Refill(s), Pharmacy: [facility]/pharmacy #[id number], 174.5, cm, 03/02/25 8:56:00 EDT, Height, kg, 03/02/25 8:56:00 EDT, Dosing Weight Start Date: 03/02/25 Stop Date: 08/29/25 Status: Ordered Medication Dispense Status: Completed Quantity: 30.0 Unit: mL Total Allowed Fills: 6 Fills Dispensed: 0 Start: 01-06-2025 azelastine 137 mcg/inh (0.1%) nasal spray 137 mcg Dose = 1 spray(s), Nostril, each, BID, PRN as needed for allergy symptoms, # 30 mL, 0 Refill(s) Start Date: 01/06/25 Status: Ordered Quantity: 30.0 Unit: mL Repeat number: 1 Start: 04-02-2023 azelastine 137 mcg/inh (0.1%) nasal spray Dose = 2 spray(s), Intranasal, BID, PRN Allergy symptoms, # 1 EA, 1 Refill(s), Pharmacy: [facility]/pharmacy #[id number], 175, cm, 04/02/23 11:06:00 EDT, Height, kg, 04/02/23 11:06:00 EDT, Dosing Weight Start Date: 04/02/23 Status: Ordered Start: 10-02-2022 azelastine 137 mcg/inh (0.1%) nasal spray Dose = 2 spray(s), Intranasal, BID, PRN Allergy symptoms, # 1 EA, 1 Refill(s), [id number], 175.3, cm, 10/02/22 11:29:00 EST, Height, kg, 10/02/22 11:29:00 EST, Dosing Weight Start Date: 10/02/22 Status: Ordered Start: 11-21-2020 azelastine 137 mcg/inh (0.1%) nasal spray Dose = 2 spray(s), Intranasal, BID, PRN Allergy symptoms, # 1 EA, 1 Refill(s), [id number], 175, cm, 11/21/20 10:53:00 EDT, Height, kg, 11/21/20 10:53:00 EDT, Dosing Weight Start Date: 11/21/20 Status: Ordered azelastine 137 mcg/inh (0.1% ) nasal spray (6 sources) Start: 11-21-2020 azelastine 137 mcg/inh (0.1%) nasal spray Dose = 2 spray(s), Intranasal, BID, PRN Allergy symptoms, # 1 EA, 1 Refill(s), [id number], 175, cm, 11/21/20 10:53:00 EDT, Height, kg, 11/21/20 10:53:00 EDT, Dosing Weight Start Date: 11/21/20 Status: Ordered Start: 11-21-2020 azelastine 137 mcg/inh (0.1%) nasal spray Dose = 2 spray(s), Intranasal, BID, # 3 EA, 1 Refill(s), Pharmacy: [facility]/pharmacy #[id number], 175, cm, 11/21/20 10:53:00 EDT, Height, kg, 11/21/20 10:53:00 EDT, Dosing Weight Start Date: 11/21/20 Status: Ordered beta carotene 15 mg oral capsule (20 sources) Start: 09-05-2021 beta-carotene 15 mg oral capsule Dose : 15 mg = 1 cap(s), Oral, qDay Start Date: 09/05/21 Status: Ordered Medication Dispense Status: Completed Total Allowed Fills: 1 Fills Dispensed: 0 Start: 01-17-2015 beta-carotene Oral, qDay, 0 Refill(s) Start Date: 01/17/15 Status: Ordered Breo Ellipta 100 mcg-25 mcg/inh inhalation powder (5 sources) Start: 03-02-2025 End: 08-29-2025 take 1 dose by mouth once daily Breo Ellipta 100 mcg-25 mcg/inh inhalation powder Dose = 1 puff(s), Inhalation, Daily, rinse mouth and throat out after every use, # 3 EA, 1 Refill(s), Pharmacy: [facility]/pharmacy #[id number], 174.5, cm, 03/02/25 8:56:00 EDT, Height, kg, 03/02/25 8:56:00 EDT, Dosing Weight Start Date: 03/02/25 Stop Date: 08/29/25 Status: Ordered Medication Dispense Status: Completed Quantity: 3.0 Unit: EA Total Allowed Fills: 2 Fills Dispensed: 0 Start: 01-06-2025 End: 07-05-2025 take 1 dose by mouth once daily Breo Ellipta 100 mcg-25 mcg/inh inhalation powder Dose = 1 puff(s), Inhalation, Daily, rinse mouth and throat out after every use, # 3 EA, 1 Refill(s), Pharmacy: [facility]/pharmacy #[id number], 174.5, cm, 01/06/25 13:34:00 EDT, Height, kg, 01/06/25 13:34:00 EDT, Dosing Weight Start Date: 01/06/25 Stop Date: 07/05/25 Status: Ordered Quantity: 3.0 Unit: EA Repeat number: 2 Calcium (6 sources) Phosphate Binder, Calcium Start: 05-26-2020 calc ium (as carbonate) 600 mg oral tablet Dose : 1,200 mg = 2 tab(s), Oral, Saturday & Saturday, Patient takes supplement that contains vitamin D., 0 Refill(s) Start Date: 05/26/20 Status: Ordered Start: 05-26-2020 calcium (as ca rbonate) 600 mg oral tablet Dose : 1,200 mg = 2 tab(s), Oral, Saturday & Saturday, 0 Refill(s) Start Date: 05/26/20 Status: Ordered calcium carbonate 1500 mg or al tablet (20 sources) Start: 11-26-2023 End: 08-29-2025 calcium (as carbonate) 600 m g oral tablet Dose : 1,200 mg = 2 tab(s), Oral, BIDM, # 360 tab(s), 1 Refill(s), [id number], 174.5, cm, 03/02/25 8:56:00 EDT, Height, kg, 03/02/25 8:56:00 EDT, Dosing Weight Start Date: 03/02/25 Stop Date: 08/29/25 Status: Ordered Medication Dispense Status: Completed Quantity: 360.0 Unit: tab(s) Total Allowed Fills: 2 Fills Dispensed: 0 Start: 05-26-2020 calcium (as ca rbonate) 600 mg oral tablet Dose : 600 mg = 1 tab(s), Oral, BIDM, # 60 tab(s), 0 Refill(s), Pharmacy: [facility]/pharmacy #[id number], 175, cm, 10/01/23 10:22:00 EST, Height, kg, 10/01/23 10:22:00 EST, Dosing Weight Start Date: 10/04/23 Status: Ordered cholecalciferol 0.125 mg oral capsule (20 sources) Vitamin D Start: 03-09-2021 cholecalcifero l 125 mcg (5000 intl units) oral capsule Dose : 125 mcg = 1 cap(s), Oral, qDay, 0 Refill(s) Start Date: 03/09/21 Status: Ordered Medication Dispense Status: Completed Total Allowed Fills: 1 Fills Dispensed: 0 Start: 03-09-2021 cholecalcifero l 125 mcg (5000 intl units) oral capsule Dose : 125 mcg = 1 cap(s), Oral, qDay, 0 Refill(s) Start Date: 03/09/21 Status: Ordered Start: 03-09-2021 cholecalcifero l 125 mcg (5000 intl units) oral capsule Dose : 125 mcg = 1 cap(s), Oral, qDay, 0 Refill(s) Start Date: 03/09/21 Status: Ordered ciprofloxacin 250 mg oral tablet (1 source) Quinolone Antimicrobial Start: 02-12-2024 End: 02-17-2024 Cipro 250 mg oral tablet Dose : 250 mg = 1 tab(s), Oral, q12h, X 5 day(s), # 10 tab(s), 0 Refill(s), 02/17/24 4:44:00 PM EDT, Pharmacy: [facility]/pharmacy #[id number], 175.3, cm, 02/11/24 15:05:00 EDT, Height, 82.2, kg, 02/11/24 15:05:00 EDT, Dosing Weight Start Date: 02/12/24 Stop Date: 02/17/24 Status: Ordered colchicine 0.6 mg oral tablet (20 sources) Start: 10-20-2024 take 2 tablets by mouth once daily as needed for pain, then take 1 tablet by mouth every hour as needed for pain Colcrys 0.6 mg oral tablet See Instructions, PRN Gout pain, take 2 0.6 tab(s) Oral qDay at the first sign of a gout flare followed by 0.6 mg one hour later, # 14 tab(s), 1 Refill(s), Pharmacy: [facility]/pharmacy #[id number], 174, cm, 10/20/24 10:06:00 EDT, Height, kg, 10/20/24 10:06:00 EDT, Dosing Weight Start Date: 10/20/24 Status: Ordered Medication Dispense Status: Completed Quantity: 14.0 Unit: tab(s) Total Allowed Fills: 2 Fills Dispensed: 0 Start: 04-28-2024 take 2 tablets by mo uth once daily as needed for pain, then take 1 tablet by mouth every hour as needed for pain Colcrys 0.6 mg oral tablet See Instructions, PRN Gout pain, take 2 0.6 tab(s) Oral qDay at the first sign of a gout flare followed by 0.6 mg one hour later, # 14 tab(s), 1 Refill(s), Pharmacy: [facility]/pharmacy #[id number], 175, cm, 04/28/24 9:03:00 EDT, Height, kg, 04/28/24 9:03:00 EDT, Dosing Weight Start Date: 04/28/24 Status: Ordered Quantity: 14.0 Unit: tab(s) Repeat number: 2 Start: 12-25-2023 take 2 tablets by mo uth once daily as needed for pain, then take 1 tablet by mouth every hour as needed for pain Colcrys 0.6 mg oral tablet See Instructions, PRN Gout pain, take 2 0.6 tab(s) Oral qDay at the first sign of a gout flare followed by 0.6 mg one hour later, # 14 tab(s), 1 Refill(s), Pharmacy: [facility]/pharmacy #[id number], 175.3, cm, 12/25/23 10:33:00 EDT, Height, kg, 12/25/23 10:33:00 EDT, Dosing Weight Start Date: 12/25/23 Status: Ordered Start: 09-21-2021 take 2 tablets by mo uth once daily as needed for pain, then take 1 tablet by mouth every hour as needed for pain Colcrys 0.6 mg oral tablet See Instructions, PRN Gout pain, take 2 0.6 tab(s) Oral qDay at the first sign of a gout flare followed by 0.6 mg one hour later, # 14 tab(s), 1 Refill(s), [id number], 175.3, cm, 09/05/21 10:05:00 EST, Height, kg, 09/21/21 10:06:00 EST, Dosing Weight Start Date: 09/21/21 Status: Ordered Start: 03-22-2021 take 2 tablets by mo uth once daily as needed for pain, then take 1 tablet by mouth every hour as needed for pain Colcrys 0.6 mg oral tablet See Instructions, PRN Gout pain, take 2 0.6 tab(s) Oral qDay at the first sign of a gout flare followed by 0.6 mg one hour later, # 14 tab(s), 0 Refill(s), Pharmacy: [facility]/pharmacy #[id number], 175, cm, 03/22/21 16:01:00 EDT, Height, kg, 03/22/21 16:01:00 ED... Start Date: 03/22/21 Status: Ordered DME MISCellaneous (17 sources) Start: 01-26-2020 DME MISCellane ous See Instructions, dispense 2 pair compression stockings 20-30 mmHg weight; dx R60.0, # 1 EA, 0 Refill(s), Leg edema, 177, cm, 01/26/20 11:38:00 EDT, Height, 84.6, kg, 01/26/20 11:38:00 EDT, Dosing Weight Start Date: 01/26/20 Status: Ordered ferrous sulfate 325 mg delay ed release oral tablet (2 sources) Start: 04-20-2025 ferrous sulfat e 325 mg (65 mg elemental iron) oral delayed release tablet Dose : 325 mg = 1 tab(s), Oral, qDay, # 30 tab(s), 1 Refill(s), [id number], 175, cm, 04/20/25 11:03:00 EDT, Height, kg, 04/20/25 11:03:00 EDT, Dosing Weight Start Date: 04/20/25 Status: Ordered Medication Dispense Status: Completed Quantity: 30.0 Unit: tab(s) Total Allowed Fills: 2 Fills Dispensed: 0 Fish Oils (10 sources) Start: 01-17-2015 Fish Oil 1000 mg oral capsule Dose : 3,000 mg = 3 cap(s), Oral, BID, # 90 cap(s), 0 Refill(s) Start Date: 01/17/15 Status: Ordered Start: 01-17-2015 Fish Oil 1000 mg oral capsule Dose : 1,000 mg = 1 cap(s), Oral, TID, # 90 cap(s), 0 Refill(s) Start Date: 01/17/15 Status: Ordered fluticasone propionate 0.05 mg/actuat metered dose nasal spray (11 sources) Corticosteroid Start: 03-02-2025 End: 08-29-2025 fluticasone proprionate NASAL 50 mcg/ spray 100 mcg Dose = 2 spray(s), Nasal, qDay, # 16 gram(s), 5 Refill(s), Pharmacy: [facility]/pharmacy #[id number], 174.5, cm, 03/02/25 8:56:00 EDT, Height, kg, 03/02/25 8:56:00 EDT, Dosing Weight Start Date: 03/02/25 Stop Date: 08/29/25 Status: Ordered Medication Dispense Status: Completed Quantity: 16.0 Unit: g Total Allowed Fills: 6 Fills Dispensed: 0 Start: 04-02-2023 End: 09-29-2023 take 1 dose nasal route once daily in the morning Flonase 50 mcg/inh nasal spray Dose = 1 spray(s), Nostril, each, qAM, # 1 EA, 5 Refill(s), [id number], 175, cm, 04/02/23 11:06:00 EDT, Height, kg, 04/02/23 11:06:00 EDT, Dosing Weight Start Date: 04/02/23 Stop Date: 09/29/23 Status: Ordered Start: 10-02-2022 End: 03-31-2023 take 1 dose nasal route once daily in the morning Flonase 50 mcg/inh nasal spray Dose = 1 spray(s), Nostril, each, qAM, # 1 EA, 5 Refill(s), [id number], 175.3, cm, 10/02/22 11:29:00 EST, Height, kg, 10/02/22 11:29:00 EST, Dosing Weight Start Date: 10/02/22 Stop Date: 03/31/23 Status: Ordered Start: 11-21-2020 take 1 dose nasal ro gildardo twice daily as needed fluticasone proprionate NASAL 50 mcg/ spray Dose = 1 spray(s), Nostril, each, BID, PRN Allergy symptoms, # 1 EA, 1 Refill(s), Pharmacy: [facility]/pharmacy #[id number], 175, cm, 11/21/20 10:53:00 EDT, Height, kg, 11/21/20 10:53:00 EDT, Dosing Weight Start Date: 11/21/20 Status: Ordered fluticasone proprionate NASAL 50 mcg/ spray (6 sources) Start: 11-21-2020 take 1 dose nasal route twice daily as needed fluticasone proprionate NASAL 50 mcg/ spray Dose = 1 spray(s), Nostril, each, BID, PRN Allergy symptoms, # 1 EA, 1 Refill(s), Pharmacy: [facility]/pharmacy #[id number], 175, cm, 11/21/20 10:53:00 EDT, Height, kg, 11/21/20 10:53:00 EDT, Dosing Weight Start Date: 11/21/20 Status: Ordered Start: 11-21-2020 End: 05-20-2021 take 1 dose nasal route twice daily fluticasone proprionate NASAL 50 mcg/ spray Dose = 1 spray(s), Nostril, each, BID, # 3 EA, 1 Refill(s), Pharmacy: [facility]/pharmacy #[id number], 175, cm, 11/21/20 10:53:00 EDT, Height, kg, 11/21/20 10:53:00 EDT, Dosing Weight Start Date: 11/21/20 Stop Date: 05/20/21 Status: Ordered 12 hr guaiFENesin 600 mg ext ended release oral tablet (13 sources) Start: 09-05-2021 Mucinex 600 mg oral tablet, extended release Dose : 600 mg = 1 tab(s), Oral, qPM Start Date: 09/05/21 Status: Ordered Start: 09-05-2021 Mucinex 600 mg oral tablet, extended release Dose : 600 mg = 1 tab(s), Oral, qPM Start Date: 09/05/21 Status: Ordered ipratropium bromide 0.021 mg/actuat metered dose nasal spray (5 sources) Anticholinergic Start: 11-21-2020 ipratropium 21 mcg/inh (0.03%) nasal spray Dose = 2 spray(s), Nasal, qHS, PRN Allergy symptoms, # 1 EA, 1 Refill(s), Pharmacy: [facility]/pharmacy #[id number], 175, cm, 11/21/20 10:53:00 EDT, Height, kg, 11/21/20 10:53:00 EDT, Dosing Weight Start Date: 11/21/20 Status: Ordered ipratropium 21 mcg/inh (0.03%) nasal spray (6 sources) Start: 11-21-2020 ipratropium 21 mcg/inh (0.03%) nasal spray Dose = 2 spray(s), Nasal, qHS, PRN Allergy symptoms, # 1 EA, 1 Refill(s), [id number] 175, cm, 11/21/20 10:53:00 EDT, Height, kg, 11/21/20 10:53:00 EDT, Dosing Weight Start Date: 11/21/20 Status: Ordered Start: 11-21-2020 End: 05-20-2021 ipratropium 21 mcg/inh (0.03 %) nasal spray Dose = 2 spray(s), Nasal, qHS, # 3 EA, 1 Refill(s), [id number], cm, 11/21/20 10:53:00 EDT, Height, kg, 11/21/20 10:53:00 EDT, Dosing Weight Start Date: 11/21/20 Stop Date: 05/20/21 Status: Ordered levothyroxine sodium 0.1 mg oral tablet (20 sources) l-Thyroxine Start: 10-01-2023 End: 08-29-2025 levothyroxine 100 mcg (0.1 mg) oral tablet Dose : 100 mcg = 1 tab(s), Oral, qDay, # 90 tab(s), 1 Refill(s), Pharmacy: [facility] #[id number], 174.5, cm, 03/02/25 8:56:00 EDT, Height, kg, 03/02/25 8:56:00 EDT, Dosing Weight Start Date: 03/02/25 Stop Date: 08/29/25 Status: Ordered Medication Dispense Status: Completed Quantity: 90.0 Unit: tab(s) Total Allowed Fills: 2 Fills Dispensed: 0 Start: 04-02-2023 End: 09-29-2023 levothyroxine 100 mcg (0.1 m g) oral tablet Dose : 100 mcg = 1 tab(s), Oral, qDay, # 90 tab(s), 1 Refill(s), [id number], 175, cm, 04/02/23 11:06:00 EDT, Height, kg, 04/02/23 11:06:00 EDT, Dosing Weight Start Date: 04/02/23 Stop Date: 09/29/23 Status: Ordered Start: 10-02-2022 End: 03-31-2023 levothyroxine 100 mcg (0.1 m g) oral tablet Dose : 100 mcg = 1 tab(s), Oral, qDay, # 90 tab(s), 1 Refill(s), [id number], 175.3, cm, 10/02/22 11:29:00 EST, Height, kg, 10/02/22 11:29:00 EST, Dosing Weight Start Date: 10/02/22 Stop Date: 03/31/23 Status: Ordered Start: 04-03-2022 End: 09-30-2022 levothyroxine 100 mcg (0.1 m g) oral tablet Dose : 100 mcg = 1 tab(s), Oral, qDay, # 90 tab(s), 1 Refill(s), Pharmacy: [facility]/pharmacy #[id number], 175.3, cm, 04/03/22 10:32:00 EDT, Height, kg, 04/03/22 10:32:00 EDT, Dosing Weight Start Date: 04/03/22 Stop Date: 09/30/22 Status: Ordered Start: 01-04-2022 levothyroxine 100 mcg (0.1 mg) oral tablet Dose : 100 mcg = 1 tab(s), Oral, qDay, # 60 tab(s), 4 Refill(s), Pharmacy: [facility]/pharmacy #[id number], 175.3, cm, 12/18/21 8:19:00 EDT, Height, kg, 12/18/21 8:19:00 EDT, Dosing Weight Start Date: 01/04/22 Status: Ordered Start: 11-09-2021 take 1 tablet by tatiana once daily levothyroxine 100 mcg (0.1 mg) oral tablet TAKE 1 TABLET BY MOUTH EVERY DAY Start Date: 12/12/21 Status: Ordered lutein 40 mg oral capsule (20 sources) Start: 01-06-2025 take 1 dose by mouth once daily lutein Dose : 40 mg =, Oral, qDay, 0 Refill(s) Start Date: 01/06/25 Status: Ordered Medication Dispense Status: Completed Total Allowed Fills: 1 Fills Dispensed: 0 Start: 01-29-2022 take 1 dose by mouth once nichelle y lutein Dose : 40 mg =, Oral, qDay Start Date: 01/29/22 Status: Ordered Repeat number: 1 Start: 06-07-2021 lutein 20 mg o ral capsule Dose : 40 mg = 2 cap(s), Oral, qDay, 0 Refill(s) Start Date: 06/07/21 Status: Ordered Start: 01-17-2015 Lutein 20 mg o ral tablet Dose : 40 mg = 2 tab(s), Oral, qDay, 1-40mg tab, 0 Refill(s) Start Date: 01/17/15 Status: Ordered meclizine hydrochloride 12.5 mg oral tablet (20 sources) Antiemetic Start: 01-06-2025 meclizine 12.5 mg oral tablet Dose : 12.5 mg = 1 tab(s), Oral, TID, PRN as needed for dizziness, # 30 tab(s), 0 Refill(s) Start Date: 01/06/25 Status: Ordered Medication Dispense Status: Completed Quantity: 30.0 Unit: tab(s) Total Allowed Fills: 1 Fills Dispensed: 0 Start: 04-07-2019 meclizine 12.5 mg oral tablet Dose : 12.5 mg = 1 tab(s), Oral, q6h, PRN as needed for dizziness Start Date: 04/07/19 Status: Ordered Repeat number: 1 melatonin 10 mg oral capsule (20 sources) Start: 01-26-2020 melatonin 10 m g oral capsule Dose : 5 mg = 0.5 cap(s), Oral, qHS, 0 Refill(s) Start Date: 01/26/20 Status: Ordered Medication Dispense Status: Completed Total Allowed Fills: 1 Fills Dispensed: 0 Citrucel (20 sources) Start: 01-29-2022 take 2 tablets by mouth twice daily Citrucel 2 tab(s), Oral, BID Start Date: 01/29/22 Status: Ordered Medication Dispense Status: Completed Total Allowed Fills: 1 Fills Dispensed: 0 Start: 01-29-2022 take 2 tablets by mo ut twice daily Citrucel 2 tab(s), Oral, BID Start Date: 01/29/22 Status: Ordered Repeat number: 1 Start: 01-29-2022 take 2 tablets by mo [facility] twice daily Citrucel 2 tab(s), Oral, BID Start Date: 01/29/22 Status: Ordered Ocuvite PreserVision (20 sources) Start: 09-05-2021 take 1 tablet by mouth twice daily in the morning Ocuvite PreserVision Dose = 1 tab(s), Oral, BID, Takes at 9 AM and 12 PM Start Date: 09/05/21 Status: Ordered Medication Dispense Status: Completed Total Allowed Fills: 1 Fills Dispensed: 0 Start: 09-05-2021 take 1 tablet by tatiana twice daily in the morning Ocuvite PreserVision Dose = 1 tab(s), Oral, BID, Takes at 9 AM and 12 PM Start Date: 09/05/21 Status: Ordered Repeat number: 1 Start: 09-05-2021 take 1 tablet by tatiana twice daily in the morning Ocuvite PreserVision Dose = 1 tab(s), Oral, BID, Takes at 9 AM and 12 PM Start Date: 09/05/21 Status: Ordered Start: 09-05-2021 take 1 tablet by tatiana twice daily Ocuvite PreserVision Dose = 1 tab(s), Oral, BID Start Date: 09/05/21 Status: Ordered omeprazole 40 mg delayed release oral capsule (20 sources) Proton Pump Inhibitor Start: 10-01-2023 End: 08-29-2025 omeprazole 40 mg oral delayed release capsule Dose : 40 mg = 1 cap(s), Oral, qDay, # 90 cap(s), 1 Refill(s), Pharmacy: [facility]/pharmacy #[id number], 174.5, cm, 03/02/25 8:56:00 EDT, Height, kg, 03/02/25 8:56:00 EDT, Dosing Weight Start Date: 03/02/25 Stop Date: 08/29/25 Status: Ordered Medication Dispense Status: Completed Quantity: 90.0 Unit: cap(s) Total Allowed Fills: 2 Fills Dispensed: 0 Start: 04-02-2023 End: 09-29-2023 omeprazole 40 mg oral delaye d release capsule Dose : 40 mg = 1 cap(s), Oral, qDay, # 90 cap(s), 1 Refill(s), Pharmacy: [facility]/pharmacy #[id number], 175, cm, 04/02/23 11:06:00 EDT, Height, kg, 04/02/23 11:06:00 EDT, Dosing Weight Start Date: 04/02/23 Stop Date: 09/29/23 Status: Ordered Start: 09-21-2021 End: 09-30-2022 omeprazole 40 mg oral delaye d release capsule Dose : 40 mg = 1 cap(s), Oral, qDay, # 90 cap(s), 1 Refill(s), Pharmacy: [facility]/pharmacy #[id number], 175.3, cm, 04/03/22 10:32:00 EDT, Height, kg, 04/03/22 10:32:00 EDT, Dosing Weight Start Date: 04/03/22 Stop Date: 09/30/22 Status: Ordered Start: 06-21-2021 End: 12-18-2021 omeprazole 20 mg oral delaye d release capsule Dose : 20 mg = 1 cap(s), Oral, qDay, switch back to 20 mg dose, # 90 cap(s), 1 Refill(s), Pharmacy: [facility]/pharmacy #[id number], 175, cm, 06/07/21 11:35:00 EDT, Height, kg, 06/07/21 11:35:00 EDT, Dosing Weight Start Date: 06/21/21 Stop Date: 12/18/21 Status: Ordered Start: 11-21-2020 End: 05-20-2021 omeprazole 20 mg oral delaye d release capsule Dose : 20 mg = 1 cap(s), Oral, Every other day, # 45 cap(s), 1 Refill(s), Pharmacy: [facility]/pharmacy #[id number], 175, cm, 11/21/20 10:53:00 EDT, Height, kg, 11/21/20 10:53:00 EDT, Dosing Weight Start Date: 11/21/20 Stop Date: 05/20/21 Status: Ordered polyethylene glycol 3350 33040 mg powder for oral solution (20 sources) Osmotic Laxative Start: 02-09-2022 take 17 doses by mouth twice daily MiraLax oral powder for reconstitution Dose : 17 gram(s) =, Oral, BID, # 238 gram(s), 0 Refill(s) Start Date: 02/09/22 Status: Ordered Start: 09-08-2021 MiraLax oral p owder for reconstitution Oral, qDay, 0 Refill(s) Start Date: 09/08/21 Status: Ordered Medication Dispense Status: Completed Total Allowed Fills: 1 Fills Dispensed: 0 Polyethylene Glycol 400 / Propylene glycol (8 sources) Start: 08-24-2024 take 1 dose into the eye(s) once daily Systane Eyes, both, qDay, 0 Refill(s) Start Date: 08/24/24 Status: Ordered Medication Dispense Status: Completed Total Allowed Fills: 1 Fills Dispensed: 0 Start: 08-24-2024 Systane Eyes, both, QID, 0 Refill(s) Start Date: 08/24/24 Status: Ordered Repeat number: 1 PreserVision AREDS 2 oral capsule (5 sources) Start: 10-01-2023 take 1 capsule by mouth twice daily PreserVision AREDS 2 oral capsule Dose = 1 cap(s), Oral, BID, # 60 cap(s), 0 Refill(s) Start Date: 10/01/23 Status: Ordered prucalopride 1 mg oral tablet (4 sources) Start: 12-12-2021 Motegrity 1 mg oral tablet Dose : 1 mg = 1 tab(s), Oral, qDay, # 30 tab(s), 0 Refill(s) Start Date: 12/12/21 Status: Ordered psyllium 3400 mg powder for oral suspension (7 sources) Start: 09-05-2021 Metamucil 3.4 g/5.2 g oral powder for reconstitution 1 tablespoon, Oral, qDay Start Date: 09/05/21 Status: Ordered rosuvastatin calcium 10 mg oral tablet (20 sources) HMG-CoA Reductase Inhibitor Start: 10-01-2023 End: 09-18-2025 Crestor 10 mg oral tablet Dose : 10 mg = 1 tab(s), Oral, qPM, # 100 tab(s), 1 Refill(s), Pharmacy: [facility]/pharmacy #[id number], 174.5, cm, 03/02/25 8:56:00 EDT, Height, kg, 03/02/25 8:56:00 EDT, Dosing Weight Start Date: 03/02/25 Stop Date: 09/18/25 Status: Ordered Medication Dispense Status: Completed Quantity: 100.0 Unit: tab(s) Total Allowed Fills: 2 Fills Dispensed: 0 Start: 04-02-2023 End: 09-29-2023 Crestor 10 mg oral tablet Do se : 10 mg = 1 tab(s), Oral, qPM, # 90 tab(s), 1 Refill(s), [id number], 175, cm, 04/02/23 11:06:00 EDT, Height, kg, 04/02/23 11:06:00 EDT, Dosing Weight Start Date: 04/02/23 Stop Date: 09/29/23 Status: Ordered Start: 10-02-2022 End: 03-31-2023 Crestor 10 mg oral tablet Do se : 10 mg = 1 tab(s), Oral, qPM, # 90 tab(s), 1 Refill(s), [id number], 175.3, cm, 10/02/22 11:29:00 EST, Height, kg, 10/02/22 11:29:00 EST, Dosing Weight Start Date: 10/02/22 Stop Date: 03/31/23 Status: Ordered Start: 06-07-2021 End: 09-30-2022 Crestor 10 mg oral tablet Do se : 10 mg = 1 tab(s), Oral, qPM, # 90 tab(s), 1 Refill(s), [id number], 175.3, cm, 04/03/22 10:32:00 EDT, Height Start Date: 04/03/22 Stop Date: 09/30/22 Status: Ordered Start: 11-21-2020 End: 05-20-2021 Crestor 10 mg oral tablet Do se : 10 mg = 1 tab(s), Oral, qDay, # 90 tab(s), 1 Refill(s), Pharmacy: [facility]/pharmacy #[id number], 175, cm, 11/21/20 10:53:00 EDT, Height, kg, 11/21/20 10:53:00 EDT, Dosing Weight Start Date: 11/21/20 Stop Date: 05/20/21 Status: Ordered Erin Antarctic Krill and F roseanne Oil Blend 500 mg oral capsule (20 sources) Start: 01-29-2022 Erin Antarct ic Krill and Fish Oil Blend 500 mg oral capsule Dose : 1,000 mg = 2 cap(s), Oral, BID Start Date: 01/29/22 Status: Ordered Medication Dispense Status: Completed Total Allowed Fills: 1 Fills Dispensed: 0 Start: 01-29-2022 Erin Antarct ic Krill and Fish Oil Blend 500 mg oral capsule Dose : 1,000 mg = 2 cap(s), Oral, BID Start Date: 01/29/22 Status: Ordered Repeat number: 1 Start: 01-29-2022 Erin Antarct ic Krill and Fish Oil Blend 500 mg oral capsule Dose : 1,000 mg = 2 cap(s), Oral, BID Start Date: 01/29/22 Status: Ordered sennosides, fdc 8.6 mg oral tablet (20 sources) Start: 12-25-2023 End: 08-29-2025 senna (sennosides) 8.6 mg or al tablet Dose : 8.6 mg = 1 tab(s), Oral, qHS, PRN for constipation, # 60 tab(s), 5 Refill(s), Pharmacy: [facility]/pharmacy #[id number], 174.5, cm, 03/02/25 8:56:00 EDT, Height, kg, 03/02/25 8:56:00 EDT, Dosing Weight Start Date: 03/02/25 Stop Date: 08/29/25 Status: Ordered Medication Dispense Status: Completed Quantity: 60.0 Unit: tab(s) Total Allowed Fills: 6 Fills Dispensed: 0 Start: 10-02-2022 End: 10-04-2022 senna (sennosides) 8.6 mg or al tablet Dose : 8.6 mg = 1 tab(s), Oral, qHS, PRN for constipation, # 2 tab(s), 0 Refill(s), Pharmacy: [facility]/pharmacy #[id number], 175.3, cm, 10/02/22 11:29:00 EST, Height Start Date: 10/02/22 Stop Date: 10/04/22 Status: Ordered sertraline 100 mg oral tablet (20 sources) Serotonin Reuptake Inhibitor Start: 12-25-2023 End: 08-29-2025 Zoloft 100 mg oral tablet Dose : 50 mg = 0.5 tab(s), Oral, qPM, # 45 tab(s), 1 Refill(s), Pharmacy: [facility]/pharmacy #[id number], 174.5, cm, 03/02/25 8:56:00 EDT, Height, kg, 03/02/25 8:56:00 EDT, Dosing Weight Start Date: 03/02/25 Stop Date: 08/29/25 Status: Ordered Medication Dispense Status: Completed Quantity: 45.0 Unit: tab(s) Total Allowed Fills: 2 Fills Dispensed: 0 Start: 04-02-2023 End: 09-29-2023 Zoloft 100 mg oral tablet Do se : 50 mg = 0.5 tab(s), Oral, qPM, # 45 tab(s), 1 Refill(s), Pharmacy: [facility]/pharmacy #[id number], 175, cm, 04/02/23 11:06:00 EDT, Height, kg, 04/02/23 11:06:00 EDT, Dosing Weight Start Date: 04/02/23 Stop Date: 09/29/23 Status: Ordered Start: 10-02-2022 End: 03-31-2023 Zoloft 100 mg oral tablet Do se : 50 mg = 0.5 tab(s), Oral, qPM, # 45 tab(s), 1 Refill(s), Pharmacy: [facility]/pharmacy #[id number], 175.3, cm, 10/02/22 11:29:00 EST, Height, kg, 10/02/22 11:29:00 EST, Dosing Weight Start Date: 10/02/22 Stop Date: 03/31/23 Status: Ordered Start: 04-03-2022 End: 09-30-2022 Zoloft 100 mg oral tablet Do se : 50 mg = 0.5 tab(s), Oral, qPM, # 45 tab(s), 1 Refill(s), Pharmacy: [facility]/pharmacy #[id number], 175.3, cm, 04/03/22 10:32:00 EDT, Height Start Date: 04/03/22 Stop Date: 09/30/22 Status: Ordered Start: 01-29-2022 Zoloft 100 mg oral tablet Dose : 50 mg = 0.5 tab(s), Oral, qPM Start Date: 01/29/22 Status: Ordered Start: 12-12-2021 sertraline 100 mg oral tablet Dose : 50 mg = 0.5 tab(s), Oral, qDay, # 45 tab(s), 1 Refill(s), [id number], 175.3, cm, 12/12/21 9:58:00 EDT, Height, kg, 12/12/21 9:58:00 EDT, Dosing Weight Start Date: 12/12/21 Status: Ordered Start: 09-21-2021 sertraline 100 mg oral tablet Dose : 50 mg = 0.5 tab(s), Oral, qDay, # 45 tab(s), 1 Refill(s), [id number], 175.3, cm, 09/05/21 10:05:00 EST, Height, kg, 09/21/21 10:06:00 EST, Dosing Weight Start Date: 09/21/21 Status: Ordered Start: 06-26-2021 sertraline 100 mg oral tablet Dose : 50 mg = 0.5 tab(s), Oral, qDay, # 45 tab(s), 1 Refill(s), [id number], 175, cm, 06/07/21 11:35:00 EDT, Height, kg, 06/07/21 11:35:00 EDT, Dosing Weight Start Date: 06/26/21 Status: Ordered Start: 11-21-2020 End: 05-20-2021 sertraline 100 mg oral table t Dose : 50 mg = 0.5 tab(s), Oral, qDay, # 45 tab(s), 1 Refill(s), [id number], 175, cm, 11/21/20 10:53:00 EDT, Height, kg, 11/21/20 10:53:00 EDT, Dosing Weight Start Date: 11/21/20 Stop Date: 05/20/21 Status: Ordered Super enzymes (20 sources) Start: 05-26-2020 Super enzymes Super enzymes, 1 tab(s), Oral, BID, 0 Refill(s), 83.2 Start Date: 05/26/20 Status: Ordered Medication Dispense Status: Completed Total Allowed Fills: 1 Fills Dispensed: 0 Start: 05-26-2020 Super enzymes Super enzymes, 1 tab(s), Oral, TIDAC, 0 Refill(s), 83.2 Start Date: 05/26/20 Status: Ordered Repeat number: 1 Start: 05-26-2020 Super enzymes Super enzymes, 1 tab(s), Oral, TIDAC, 0 Refill(s), 83.2 Start Date: 05/26/20 Status: Ordered Start: 05-26-2020 Super enzymes Super enzymes, 2 daily, 0 Refill(s), 83.2 Start Date: 05/26/20 Status: Ordered triamcinolone acetonide 1 mg/ml topical cream (12 sources) Corticosteroid Start: 03-02-2025 triamcinolone 0.1% topical cream Apply 1 lorna, Topical, BID, APPLY TO AFFECTED AREA TWICE A DAY FOR 14 DAYS, # 60 gram(s), 1 Refill(s), [id number], Cream, 174.5, cm, 03/02/25 8:56:00 EDT, Height, 81.6, kg, 03/02/25 8:56:00 EDT, Dosing Weight Start Date: 03/02/25 Status: Ordered Medication Dispense Status: Completed Quantity: 60.0 Unit: g Total Allowed Fills: 2 Fills Dispensed: 0 Start: 12-09-2024 triamcinolone 0.1% topical cream Apply 1 lorna, Topical, BID, APPLY TO AFFECTED AREA TWICE A DAY FOR 14 DAYS, # 60 gram(s), 1 Refill(s), [id number], Cream, 174, cm, 10/20/24 10:06:00 EDT, Height, 82.7, kg, 10/20/24 10:06:00 EDT, Dosing Weight Start Date: 12/09/24 Status: Ordered Quantity: 60.0 Unit: g Repeat number: 2 Start: 09-03-2023 End: 11-26-2023 triamcinolone 0.1% topical c ream Apply 1 lorna, Topical, BID, X 14 day(s), # 30 gram(s), 5 Refill(s), Pharmacy: [facility]/pharmacy #[id number], Cream, 175, cm, 05/06/23 13:16:00 EDT, Height, 79, kg, 05/06/23 13:16:00 EDT, Dosing Weight Start Date: 09/03/23 Stop Date: 11/26/23 Status: Ordered Completed/Discontinued Medications Medication Drug Class(es) Dates Sig (Normalized) Sig (Original) Albuterol (20 sources) beta2-Adrenergic Agonist Start: 10-02-2022 End: 03-31-2023 take 2 puff(s) by inhalation four times daily as needed for wheezing Ventolin HFA MDI (90 mcg/inh) inhalation aerosol 2 puff(s), Inhalation, QID, PRN as needed for wheezing, # 3 EA, 1 Refill(s), Pharmacy: [facility]/pharmacy #[id number], 175.3, cm, 10/02/22 11:29:00 EST, Height, kg, 10/02/22 11:29:00 EST, Dosing Weight Start Date: 10/02/22 Stop Date: 03/31/23 Status: Ordered Start: 09-21-2021 End: 03-20-2022 take 2 puff(s) by inhalation four times daily as needed for wheezing Ventolin HFA MDI (90 mcg/inh) inhalation aerosol 2 puff(s), Inhalation, QID, PRN as needed for wheezing, # 3 EA, 1 Refill(s), Pharmacy: [facility]/pharmacy #[id number], 175.3, cm, 09/05/21 10:05:00 EST, Height, kg, 09/21/21 10:06:00 EST, Dosing Weight Start Date: 09/21/21 Stop Date: 03/20/22 Status: Ordered Start: 05-26-2020 take 1 puff(s) by in halation four times daily as needed for wheezing Ventolin HFA MDI (90 mcg/inh) inhalation aerosol 1 puff(s), Inhalation, QID, PRN as needed for wheezing, 0 Refill(s) Start Date: 05/26/20 Status: Ordered albuterol MDI (90 mcg/inh) CFC free inhalation aerosol (7 sources) Start: 01-06-2025 End: 04-06-2025 take 2 puff(s) by inhalation every six hours as needed for wheezing albuterol MDI (90 mcg/inh) CFC free inhalation aerosol 2 puff(s), Inhalation, q6h, PRN as needed for wheezing, # 18 gram(s), 2 Refill(s), [id number], 174.5, cm, 01/06/25 13:34:00 EDT, Height, kg, 01/06/25 13:34:00 EDT, Dosing Weight Start Date: 01/06/25 Stop Date: 04/06/25 Status: Ordered Medication Dispense Status: Completed Quantity: 18.0 Unit: g Total Allowed Fills: 3 Fills Dispensed: 0 Start: 01-06-2025 End: 04-06-2025 take 2 puff(s) by inhalation every six hours as needed for wheezing albuterol MDI (90 mcg/inh) CFC free inhalation aerosol 2 puff(s), Inhalation, q6h, PRN as needed for wheezing, # 18 gram(s), 2 Refill(s), [id number], 174.5, cm, 01/06/25 13:34:00 EDT, Height, kg, 01/06/25 13:34:00 EDT, Dosing Weight Start Date: 01/06/25 Stop Date: 04/06/25 Status: Ordered Quantity: 18.0 Unit: g Repeat number: 3 Incruse Ellipta 62.5 mcg/inh inhalation powder (1 source) Start: 01-11-2021 End: 04-11-2021 take 1 dose by inhalation once daily Incruse Ellipta 62.5 mcg/inh inhalation powder Dose = 1 puff(s), Inhalation, qDay, # 1 EA, 2 Refill(s), [id number], 175, cm, 01/11/21 13:07:00 EDT, Height, kg, 01/11/21 13:07:00 EDT, Dosing Weight Start Date: 01/11/21 Stop Date: 04/11/21 Status: Ordered Problems Active Problems Problem Classification Problem Date Documented Date Episodic/Chronic Abdominal hernia (20 sources) Umbilical hernia; Translations: [Hiatal hernia] 11-21-2020 Episodic Abdominal pain (1 source) Abdominal pain; Translations: [Unspecified abdominal pain] Onset: Episodic Acute and unspecified renal failure (2 sources) Acute renal failure syndrome; Translations: [Acute kidney failure, unspecified] Onset: 2 Episodic Asthma (20 sources) Asthma; Translations: [Mild intermittent asthma] 03-22-2021 Chronic Chronic kidney disease (20 sources) Chronic kidney disease stage 3 06-02-2019 Chronic Chronic obstructive pulmonary disease and bronchiectasis (6 sources) Acute exacerbation of chronic obstructive airways disease; Translations: [Chronic obstructive lung disease] Onset: 2 01-11-2021 Chronic Conditions associated with dizziness or vertigo (20 sources) Lightheadedness; Translations: [Vertigo] 04-07-2019 Episodic Conduction disorders (20 sources) First degree atrioventricular block 10-01-2023 Chronic Coronary atherosclerosis and other heart disease (20 sources) Angina pectoris 10-01-2023 Chronic Deficiency and other anemia (20 sources) Anemia of chronic disease 10-01-2023 Chronic Deficiency and other anemia (15 sources) Anemia; Translations: [Anemia, unspecified] Onset: 2 07-26-2021 Episodic Disorders of lipid metabolism (20 sources) Hyperlipidemia; Translations: [Hyperlipidemia, unspecified] Onset: 2 03-10-2019 Chronic Esophageal disorders (20 sources) Gastroesophageal reflux disease 03-10-2019 Chronic Essential hypertension (19 sources) Hypertensive disorder; Translations: [Essential hypertension] Onset: 2 01-10-2015 Chronic Fluid and electrolyte disorders (1 source) Dehydration; Translations: [Dehydration] Onset: 2 Episodic Gout and other crystal arthropathies (20 sources) Gout; Translations: [Gout, unspecified] Onset: 2 03-10-2019 Chronic Hyperplasia of prostate (20 sources) Benign prostatic hypertrophy with outflow obstruction; Translations: [Benign prostatic hypertrophy without outflow obstruction] Onset: 2 11-21-2020 Chronic Hypertension with complications and secondary hypertension (20 sources) Hypertensive renal disease; Translations: [Hypertensive chronic kidney disease with stage 1 through stage 4 chronic kidney disease, or unspecified chronic kidney disease] Onset: 5 10-01-2023 Chronic Intestinal obstruction without hernia (20 sources) Intestinal obstruction; Translations: [Ileus, unspecified] Onset: 2 Episodic Mood disorders (20 sources) Major depressive disorder; Translations: [Depressive disorder] Onset: 2 11-21-2020 Chronic Nausea and vomiting (1 source) Nausea; Translations: [Nausea] Onset: 2 Episodic Nutritional deficiencies (20 sources) Vitamin D deficiency 09-28-2019 Chronic Osteoarthritis (20 sources) Osteoarthritis of left hip joint 12-12-2021 Chronic Osteoporosis (20 sources) Osteoporosis 04-11-2021 Chronic Other aftercare (20 sources) Post-discharge follow-up 03-22-2021 Episodi c Other bone disease and musculoskeletal deformities (20 sources) Somatic dysfunction of lumbar region 03-22-2021 Episodic Other bone disease and musculoskeletal deformities (20 sources) Somatic dysfunction of rib 03-22-2021 Episodic Other connective tissue disease (20 sources) Diastasis recti 11-21-2020 Episodic Other connective tissue disease (14 sources) Dupuytren's contracture 06-02-2019 Episodic Other connective tissue disease (20 sources) Swelling of lower limb 11-21-2020 Episodic Other diseases of kidney and ureters (1 source) Secondary hyperparathyroidism of renal origin; Translations: [Secondary hyperparathyroidism of renal origin] Onset: 5 Chronic Other ear and sense organ disorders (20 sources) Hearing difficulty 06-27-2020 Chronic Other ear and sense organ disorders (20 sources) Hearing loss 11-21-2020 Chronic Other ear and sense organ disorders (20 sources) Impacted cerumen 06-27-2020 Episodic Other endocrine disorders (20 sources) Secondary hyperparathyroidism 09-28-2019 Chronic Other endocrine disorders (2 sources) Primary hyperparathyroidism 04-20-2025 Chronic Other gastrointestinal disorders (20 sources) Esophageal dysphagia 06-07-2021 Episodic Other gastrointestinal disorders (20 sources) Altered bowel function 10-02-2022 Episodic Other gastrointestinal disorders (13 sources) Abdominal mass 12-25-2023 Episodic Other injuries and conditions due to external causes (7 sources) At low risk for fall 12-12-2021 Episodic Other liver diseases (20 sources) Jaundice 08-31-2019 Episodic Other lower respiratory disease (1 source) H/O: respiratory disease; Translations: [Personal history of other diseases of the respiratory system] Onset: 2 Episodic Other nutritional; endocrine; and metabolic disorders (20 sources) Hypocalcemia 07-26-2021 Chronic Other nutritional; endocrine; and metabolic disorders (20 sources) Overweight 10-02-2022 Episodic Other nutritional; endocrine; and metabolic disorders (15 sources) Overweight in adulthood with body mass index of 25 or more but less than 30 04-02-2023 Episodic Other screening for suspected conditions (not mental disorders or infectious disease) (20 sources) Computed tomography result abnormal 04-03-2022 Chronic Other screening for suspected conditions (not mental disorders or infectious disease) (20 sources) Barium swallow abnormal 07-26-2021 Episodic Other skin disorders (20 sources) Eruption 08-22-2020 Episodic Other skin disorders (20 sources) Night sweats 07-26-2021 Episodic Other upper respiratory disease (20 sources) Seasonal allergy 11-21-2020 Chronic Other upper respiratory disease (20 sources) Congestion of nasal sinus 03-25-2020 Episodic Residual codes; unclassified (20 sources) Obstructive sleep apnea syndrome 03-25-2020 Chronic Residual codes; unclassified (1 source) Obstructive sleep apnea (adult) (pediatric); Translations: [Obstructive sleep apnea (adult) (pediatric)] Onset: Chronic Residual codes; unclassified (20 sources) Edema of lower extremity 01-26-2020 Episodi c Residual codes; unclassified (20 sources) Requires vaccination 05-26-2020 Episodic Residual codes; unclassified (20 sources) Immunization due 12-12-2021 Episodic Residual codes; unclassified (20 sources) Screening due 04-03-2022 Episodic Residual codes; unclassified (5 sources) Not for resuscitation 03-02-2025 Episodic Skin and subcutaneous tissue infections (20 sources) Cellulitis 03-22-2021 Episodic Spondylosis; intervertebral disc disorders; other back problems (20 sources) Cervical arthritis 08-22-2020 Chronic Spondylosis; intervertebral disc disorders; other back problems (20 sources) Backache 03-22-2021 Episodic Syncope (20 sources) Near syncope 10-01-2023 Episodic Thyroid disorders (20 sources) Subclinical hypothyroidism; Translations: [Hypothyroidism] Onset: 05-11-2021 Chronic Unclassified (20 sources) Patient encounter status 03-01-2021 Urinary tract infections (20 sources) Urinary tract infectious disease 09-30-2019 Episodic Past or Other Problems Problem Classification Problem Date Documented Da te Episodic/Chronic Diabetes mellitus without complication (20 sources) Prediabetes; Translations: [Prediabetes] Onset: 02-19-2025 06-04-2021 Episodic Genitourinary symptoms and ill-defined conditions (6 sources) Dysuria; Translations: [Frequency of micturition] Onset: 08-24-2024 Episodic Results Test Name Value Interpretation Reference Range Facility Pulmonary Visit Reporton Pulmonary Visit Report [facility] [address] [place] [address] OFFICE VISIT Date of Service: 06/08/25 MR#: [id number] Acct: [id number] Name: BLOSSOM BASS Rep #: [id number] : 1935 Provider: OZIEL Pedroza Age/Sex: 89/M Location: [facility] Status: Signed Assessment and Plan Assessment and Plan (1) CONNER (obstructive sleep apnea): Status: Chronic Plan: Deteriorated. The patient has an elevated overall AHI, and noted to have some central events. The patient's has noticed that he has had an elevated number of events. The patient is now having some cardiac issues, unclear if the uncontrolled sleep apnea has predisposed him to these cardiac abnormalities or if an underlying cardiac etiology could be contributing to the central events. Regardless, the patient needs to be optimized from a sleep apnea standpoint so that he may be treated for his arrhythmia and be prepared for this upcoming surgery of the abdomen. The patient conveys understanding and is agreeable with this plan. Sending him for a titration study. I will order the appropriate settings and/or machine once test results are available for review. Follow-up in 3 months to evaluate his response to new recommended therapy. He has been encouraged to contact our office if he has any difficulty acclimating to the new therapy in the meantime. (2) Asthma: Status: Acute Qualifiers: Asthma severity: mild Asthma persistence: intermittent Asthma complication type: uncomplicated Qualified Code(s): J45.20 - Mild intermittent asthma, uncomplicated Plan: Stable, no signs of exacerbation of asthma today. Continue Breo. No additional testing at this time. Contact the office with any signs of new or worsening symptoms. (3) Irregular heart rhythm: Status: Acute Plan: Complicates exam, plan, care and prognosis. New cardiology referral pending. I will share this office visit with the outside plant cable engineer to let them know that the patient is not optimized from a sleep apnea standpoint and that we are working on this. It is imperative that we make sure that the patient is optimized with treating his sleep apnea so that the outside plant cable engineer can optimize the patient either through medical management or intervention if indicated. Orders: Orders Polysomnography with PAP Today G47.33 - Obstructive sleep apnea (adult) (pediatric) Plan Details Additional Comments: This note was generated with [employer] dictation software. It may contain incorrect words, spelling, and punctuation that were not noted in checking the note before signing. Portions of this documentation have been copied and pasted from previous office visit notes to provide a cohesive continuity of the history. The note has been reviewed, edited, and updated, as necessary. I have spent 33 minutes today reviewing labs, records and history. Time includes coordinating care, interpretation of tests, discussion with patient's other health care providers via telephone. This also includes time I spent with the patient for exam, treatment plan and education as well as documenting clinical information. Follow Up: 3 Months HPI 1 Y FU Chief Complaint: Routine follow-up HPI Comments Details: This patient presents to the office today for follow up on his Asthma and CONNER. He is ambulatory and on room air. He is accompanied today by his . He has not been seen in the ED or urgent care for any respiratory illnesses since his last office visit. He has not required any antibiotics or prednisone for any breathing problems. He is requesting clearance for abdominal surgery next month. However, his reports that they found something wrong with his heart so the surgery is probably on hold until they get that figured out. He is compliant with the use of Breo 1 puff daily. He does report rinsing his mouth out after each use. He denies any medication side effect such as sore throat or thrush. He has not recently needed to use his albuterol rescue inhaler. He does have shortness of breath on exertion . He denies any cough, sputum production or hemoptysis. He denies any wheezing, chest tightness, chest pain or palpitations. He also denies any fever, chills or body aches. He wakes up feeling rested and refreshed. His has noticed an increase in number of events. He continues to experience dry mouth, and mask leak. He is not having difficulty with morning headaches. He is not having excessive nocturia. He naps daily for about 1 hour. Compliance report for the past 30 days shows 100% compliance with an average use of 7 hours and 59 minutes per night. Current setting is 10/6 cmH2O with residual AHI of 17.1 events per hour. Leaks do appear to be a slight issue. Intake Vital Signs 05/13/24 07:49 06/08/25 11:27 Height 5 ft 9 in 5 ft 9 in We (more content not included)... Normal [facility] MYOCARDIAL SPECT STRESS/R ESTon 05-17-2025 NM MYOCARDIAL SPECT STRESS/REST ORIGINAL NM MYOCARDIAL SPECT STRESS/REST CLINICAL STATEMENT: chest pain at rest TECHNIQUE: Lexiscan dose: 0.4 mg Radiopharmaceutical (stress): Tc-99m Sestamibi Dose:26.2 mCi Radiopharmaceutical (rest): Tc-99m Sestamibi Dose:8.7 mCi SPECT acquisition and processing Reconstruction and reorientation of SPECT images into short axis, vertical and horizontal long axis planes Quantitative LVEF assessment COMPARISON:none REPORT:Overall fair quality study. No significant coronary calcifications noted on accompanying CT images. Mild motion is noted on review of rotating raw images left ventricular ejection fraction is 64% left ventricular end-diastolic volume is 108 mL and TID ratio is 1.13. IMPRESSION: No evidence of ischemia or infarction. Normal left ventricular ejection fraction. ECG portion will be dictated separately. Interpreted By: Sydney Santa Preliminary Report By: Sydney Santa Electronically Signed By: Sydney Santa Dictated Date: 05/17/2025 6:29:40 PM Prelim Date: 05/17/2025 6:29:40 PM Sign Date: 05/17/2025 6:32:23 PM Ordering Provider:Sp Pope Normal [facility] .Auto Diffon 04-19-2025 Basophil, Absolute 0.0 10 3/mcL Normal 0.0-0.3 [facility] Comment on above: Performed By: #### A DIFF, CMP, URIC, ANEU, CBC, TSH, VIDH, LIPID, CAION, A1C, FERR, GFR, FT4 #### [facility] [address] [place], [place] [address] #### PTH #### [address] [address] Basophils/100 WBC (Bld) 0.1 % Normal 0.0-2.5 [facility] Comment on above: Performed By: #### A DIFF, CMP, URIC, ANEU, CBC, TSH, VIDH, LIPID, CAION, A1C, FERR, GFR, FT4 #### [address] [address] #### PTH #### [address] [address] Eosinophil, Absolute 0.1 10 3/mcL Normal 0.0-0.7 [facility] Comment on above: Performed By: #### A DIFF, CMP, URIC, ANEU, CBC, TSH, VIDH, LIPID, CAION, A1C, FERR, GFR, FT4 #### [address] [address] #### PTH #### [address] [address] Eosinophils/100 WBC (Bld) 3.4 % Normal 0.0-6.0 [facility] Comment on above: Performed By: #### A DIFF, CMP, URIC, ANEU, CBC, TSH, VIDH, LIPID, CAION, A1C, FERR, GFR, FT4 #### [address] [address] #### PTH #### [address] [address] Lymphocyte, Absolute 1.2 10 3/mcL Normal 0.9-4.3 [facility] Comment on above: Performed By: #### A DIFF, CMP, URIC, ANEU, CBC, TSH, VIDH, LIPID, CAION, A1C, FERR, GFR, FT4 #### [address] [address] #### PTH #### [address] [address] Lymphocytes/100 WBC (Bld) 22.5 % Normal 20.0-40.0 [facility] Comment on above: Performed By: #### A DIFF, CMP, URIC, ANEU, CBC, TSH, VIDH, LIPID, CAION, A1C, FERR, GFR, FT4 #### [address] [address] #### PTH #### [address] [address] Monocyte, Absolute 0.3 10 3/mcL Normal 0.1-1.4 [facility] Comment on above: Performed By: #### A DIFF, CMP, URIC, ANEU, CBC, TSH, VIDH, LIPID, CAION, A1C, FERR, GFR, FT4 #### [address] [address] #### PTH #### [address] [address] Monocytes/100 WBC (Bld) 6.1 % Normal 2.0-13.0 [facility] Comment on above: Performed By: #### A DIFF, CMP, URIC, ANEU, CBC, TSH, VIDH, LIPID, CAION, A1C, FERR, GFR, FT4 #### [address] [address] #### PTH #### [address] [address] Neutrophils/100 WBC (Bld) 67.7 % Normal 50.0-75.0 [facility] Comment on above: Performed By: #### A DIFF, CMP, URIC, ANEU, CBC, TSH, VIDH, LIPID, CAION, A1C, FERR, GFR, FT4 #### [address] [address] #### PTH #### [address] [address] .GFRon 04-19-2025 Estimated Glomerular Filtration Rate 58 ml/min/1.73sqm Normal [facility] Comment on above: Result Comment: Stages of Chronic Kidney Disease (CKD) Stage Description eGFR(ml/min/1.73 sq.m.) CKD 1 Normal kidney function or >=90 normal kindney function with possible kidney damage (ex. Proteinuria) CKD 2 Kidney damage with mild loss 60-89 of kidney function CKD 3a Mild to moderate loss of kidney 45-59 function CKD 3b Moderate to severe loss of 30-44 of kindey function CKD 4 Severe loss of kidney function 15-29 CKD 5 Kidney failure <15 Note: (go live 2024) the eGFR calculation was updated to the 2020 CKD-EPI creatinine equation without a race factor to calculate the eGFR results. Performed By: #### U KANNAN Ramirez #### [address] [address] .NEUABSon 04-19-2025 Neutrophil, Absolute 3.7 10 3/mcL Normal 2.3-8.1 [facility] Comment on above: Performed By: #### A DIFF, CMP, URIC, ANEU, CBC, TSH, VIDH, LIPID, CAION, A1C, FERR, GFR, FT4 #### [place] [address] #### PTH #### [address] [address] A1Con 04-19-2025 Glucose [Mass/Vol] 134 mg/dL Normal [facility] Comment on above: Result Comment: Cony mated Average Glucose calculated by equation ((28.7xA1C)-46.7) Estimated average glucose (eAG) is a calculated value from Hemoglobin A1C and is food service representative of the average blood glucose level in the last 2-3 month period. Normal range: less than 114 mg/dL Performed By: #### A DIFF, CMP, URIC, ANEU, CBC, TSH, VIDH, LIPID, CAION, A1C, FERR, GFR, FT4 #### [place] [address] #### PTH #### [address] [address] HbA1c (Bld) [Mass fraction] 6.3 % Normal 4.3-6.4 [facility] Comment on above: Performed By: #### A DIFF, CMP, URIC, ANEU, CBC, TSH, VIDH, LIPID, CAION, A1C, FERR, GFR, FT4 #### [place] [address] #### PTH #### [address] [address] CAIONon 04-19-2025 Calcium Ionized 1.14 mmol/L Normal 1.12-1.32 [facility] Comment on above: Performed By: #### A DIFF, CMP, URIC, ANEU, CBC, TSH, VIDH, LIPID, CAION, A1C, FERR, GFR, FT4 #### [address] [address] #### PTH #### [place] [address] CBCon 04-19-2025 Erythrocyte distribution width (RBC) [Ratio] 13.8 % Normal 11.5-15.5 [facility] Comment on above: Performed By: #### A DIFF, CMP, URIC, ANEU, CBC, TSH, VIDH, LIPID, CAION, A1C, FERR, GFR, FT4 #### [address] [address] #### PTH #### [place] [address] Hematocrit (Bld) [Volume fraction] 34.8 % Low 40.0-52.0 [facility] Comment on above: Performed By: #### A DIFF, CMP, URIC, ANEU, CBC, TSH, VIDH, LIPID, CAION, A1C, FERR, GFR, FT4 #### [address] [address] #### PTH #### [place] [address] Hgb 11.6 G/dL Low 13.0-17.5 [facility] Comment on above: Performed By: #### A DIFF, CMP, URIC, ANEU, CBC, TSH, VIDH, LIPID, CAION, A1C, FERR, GFR, FT4 #### [address] [address] #### PTH #### [address] [address] MCH (RBC) [Entitic mass] 28.8 pg Normal 27.0-33.0 [facility] Comment on above: Performed By: #### A DIFF, CMP, URIC, ANEU, CBC, TSH, VIDH, LIPID, CAION, A1C, FERR, GFR, FT4 #### [address] [address] #### PTH #### [address] [address] MCHC 33.5 G/dL Normal 32.0-36.0 [facility] Comment on above: Performed By: #### A DIFF, CMP, URIC, ANEU, CBC, TSH, VIDH, LIPID, CAION, A1C, FERR, GFR, FT4 #### [address] [address] #### PTH #### [place] [address] MCV (RBC) [Entitic vol] 86.0 fL Normal 81.0-100.0 [facility] Comment on above: Performed By: #### A DIFF, CMP, URIC, ANEU, CBC, TSH, VIDH, LIPID, CAION, A1C, FERR, GFR, FT4 #### [address] [address] #### PTH #### [place] [address] Platelet 214 10 3/mcL Normal 150-450 [facility] Comment on above: Performed By: #### A DIFF, CMP, URIC, ANEU, CBC, TSH, VIDH, LIPID, CAION, A1C, FERR, GFR, FT4 #### [address] [address] #### PTH #### [place] [address] Platelet mean volume (Bld) [Entitic vol] 8.2 fL Normal 6.4-10.5 [facility] Comment on above: Performed By: #### A DIFF, CMP, URIC, ANEU, CBC, TSH, VIDH, LIPID, CAION, A1C, FERR, GFR, FT4 #### [address] [address] #### PTH #### [place] [address] RBC 4.05 10 6/mcL Low 4.50-6.00 [facility] Comment on above: Performed By: #### A DIFF, CMP, URIC, ANEU, CBC, TSH, VIDH, LIPID, CAION, A1C, FERR, GFR, FT4 #### [address] [address] #### PTH #### [place] [address] WBC 5.5 10 3/mcL Normal 4.5-10.8 [facility] Comment on above: Performed By: #### A DIFF, CMP, URIC, ANEU, CBC, TSH, VIDH, LIPID, CAION, A1C, FERR, GFR, FT4 #### [address] [address] #### PTH #### [place] [address] CMPon 04-19-2025 Albumin Level 2.7 G/dL Low 3.4-4.8 [facility] Comment on above: Performed By: #### U James UAMICAO #### [address] [address] Albumin/Globulin [Mass ratio] 0.7 {ratio} Low 1.1-2.5 [facility] Comment on above: Performed By: #### U James UAMICAO #### [address] [address] ALP [Catalytic activity/Vol] 112 U/L Normal 40-135 [facility] Comment on above: Performed By: #### U A UAMICAO #### [address] [address] ALT [Catalytic activity/Vol] 16 U/L Normal 16-63 [facility] Comment on above: Performed By: #### U A UAMICAO #### [address] [address] AST [Catalytic activity/Vol] 15 U/L Normal 10-40 [facility] Comment on above: Performed By: #### U James UAMICAO #### [address] [address] Bili Total 0.3 mg/dL Normal 0.2-1.0 [facility] Comment on above: Result Comment: Use of this assay is not recommended for patients undergoing treatment with eltrombopag due to the potential for falsely elevated results. Performed By: #### U A UAMICAO #### [place] [address] BUN/Creatinine Ratio 17 ratio Normal 7-27 [facility] Comment on above: Performed By: #### U A UAMICAO #### [place] [id number] Calcium [Mass/Vol] 8.2 mg/dL Low 8.4-10.2 [facility] Comment on above: Performed By: #### U James UAMICAO #### [place] [address] Chloride [Moles/Vol] 105 mmol/L Normal 98-107 [facility] Comment on above: Performed By: #### U A UAMICAO #### [place] [address] CO2 [Moles/Vol] 30 mmol/L Normal 23-31 [facility] Comment on above: Performed By: #### U A UAMICAO #### [address] [address] Creatinine [Mass/Vol] 1.20 mg/dL High 0.67-1.17 [facility] Comment on above: Performed By: #### U A, UAMICAO #### [place] [id number] Electrolyte Balance 5.0 mEq/L Normal 4.0-15.0 [facility] Comment on above: Performed By: #### U A, UAMICAO #### [place] [address] Globulin 3.9 G/dL Normal 2.7-4.4 [facility] Comment on above: Performed By: #### U A, UAMICAO #### [address] [address] Glucose [Mass/Vol] 111 mg/dL High 83-110 [facility] Comment on above: Performed By: #### U A, UAMICAO #### [address] [address] Potassium [Moles/Vol] 4.4 mmol/L Normal 3.5-5.1 [facility] Comment on above: Performed By: #### U A, UAMICAO #### [address] [address] Sodium [Moles/Vol] 140 mmol/L Normal 136-145 [facility] Comment on above: Performed By: #### U A, UAMICAO #### [address] [address] Total Protein 6.6 G/dL Normal 6.4-8.2 [facility] Comment on above: Performed By: #### U A, UAMICAO #### [address] [address] Urea nitrogen [Mass/Vol] 20 mg/dL High 7-18 [facility] Comment on above: Performed By: #### U A, UAMICAO #### [address] [address] Minal 04-19-2025 Ferritin [Mass/Vol] 38.0 ng/mL Normal 26.0-388.0 [facility] Comment on above: Performed By: #### A DIFF, CMP, URIC, ANEU, CBC, TSH, VIDH, LIPID, CAION, A1C, FERR, GFR, FT4 #### [address] [address] #### PTH #### [facility] [address] [place] [address] FT4on 04-19-2025 Free T4 [Mass/Vol] 1.08 ng/dL Normal 0.76-1.46 [facility] Comment on above: Performed By: #### A DIFF, CMP, URIC, ANEU, CBC, TSH, VIDH, LIPID, CAION, A1C, FERR, GFR, FT4 #### [facility] [address], [place] [address] #### PTH #### [facility] [address] [place] [id number] LABORATORYOrdered By: SYSTEM SYSTEM on 04-19-2025 25-hydroxyvitamin D3 [Mass/Vol] 51.1 ng/mL Invalid Interpretation Code AO ADM SS Comment on above: Interpretive Data: I nterpretive Values Based on Total 25(OH) Vitamin D: Deficient <20 ng/mL Insufficient 20 - <30 ng/mL Sufficient 30-100 ng/mL Albumin BCP dye [Mass/Vol] 2.7 G/dL Low 3.4 - 4.8 G/dL AO ADM SS Albumin/Globulin [Mass ratio] 0.7 {ratio} Low 1.1 - 2.5 ratio AO ADM SS ALP [Catalytic activity/Vol] 112 U/L Normal 40 - 135 U/L AO ADM SS ALT With P-5'-P [Catalytic activity/Vol] 16 U/L Normal 16 - 63 U/L AO ADM SS AST With P-5'-P [Catalytic activity/Vol] 15 U/L Normal 10 - 40 U/L AO ADM SS Basophils (Bld) [#/Vol] 0.0 103/mcL Normal 0.0 - 0.3 10^3/mcL AO Workflow SS Basophils/100 WBC (Bld) 0.1 % Normal 0.0 - 2.5 % AO Workflow SS Bilirubin [Mass/Vol] 0.3 mg/dL Normal 0.2 - 1 .0 mg/dL AO ADM SS Comment on above: Interpretive Data: U se of this assay is not recommended for patients undergoing treatment with eltrombopag due to the potential for falsely elevated results. Calcium [Mass/Vol] 8.2 mg/dL Low 8.4 - 10. 2 mg/dL AO ADM SS Chloride [Moles/Vol] 105 mmol/L Normal 98 - 10 7 mmol/L AO ADM SS CO2 [Moles/Vol] 30 mmol/L Normal 23 - 31 mmol/L AO ADM SS Creatinine [Mass/Vol] 1.20 mg/dL High 0.67 - 1.17 mg/dL AO ADM SS Electrolyte Balance 5.0 mEq/L Normal 4.0 - 15 .0 mEq/L AO ADM SS Eosinophil, Absolute 0.1 103/mcL Normal 0.0 - 0 .7 10^3/mcL AO Workflow SS Eosinophils/100 WBC (Bld) 3.4 % Normal 0.0 - 6.0 % AO Workflow SS Erythrocyte distribution width (RBC) [Ratio] 13.8 % Normal 11.5 - 15.5 % AO Workflow SS Estimated Glomerular Filtration Rate 58 ml/min/1.73sqm Invalid Interpretation Code AO Chemistry S Comment on above: Interpretive Data: Stages of Chronic Kidney Disease (CKD) Stage Description eGFR(ml/min/1.73 sq.m.) CKD 1 Normal kidney function or >=90 normal kindney function with possible kidney damage (ex. Proteinuria) CKD 2 Kidney damage with mild loss 60-89 of kidney function CKD 3a Mild to moderate loss of kidney 45-59 function CKD 3b Moderate to severe loss of 30-44 of kindey function CKD 4 Severe loss of kidney function 15-29 CKD 5 Kidney failure <15 Note: (go live 2024) the eGFR calculation was updated to the 2020 CKD-EPI creatinine equation without a race factor to calculate the eGFR results. Ferritin [Mass/Vol] 38.0 ng/mL Normal 26.0 - 3 88.0 ng/mL AO ADM SS Free T4 [Mass/Vol] 1.08 ng/dL Normal 0.76 - 1. 46 ng/dL AO ADM SS Globulin 3.9 G/dL Normal 2.7 - 4.4 G/dL AO ADM SS Glucose [Mass/Vol] 111 mg/dL High 83 - 110 mg/dL AO ADM SS Glucose [Mass/Vol] 134 mg/dL Invalid Interpretation Code AO Chemistry S Comment on above: Interpretive Data: E stimated average glucose (eAG) is a calculated value from Hemoglobin A1C and is food service representative of the average blood glucose level in the last 2-3 month period. Normal range: less than 114 mg/dL HbA1c (Bld) [Mass fraction] 6.3 % Normal 4.3 - 6.4 % AO ADM SS Hematocrit (Bld) [Volume fraction] 34.8 % Low 40.0 - 52.0 % AO Workflow SS Hemoglobin (Bld) [Mass/Vol] 11.6 G/dL Low 13.0 - 17.5 G/dL AO Workflow SS Lymphocytes (Bld) [#/Vol] 1.2 103/mcL Normal 0.9 - 4.3 10^3/mcL AO Workflow SS Lymphocytes/100 WBC (Bld) 22.5 % Normal 20.0 - 40.0 % AO Workflow SS MCH (RBC) [Entitic mass] 28.8 pg Normal 27.0 - 33.0 pg AO Workflow SS MCHC 33.5 G/dL Normal 32.0 - 36.0 G/dL AO Workflow SS MCV (RBC) [Entitic vol] 86.0 fL Normal 81.0 - 100.0 fL AO Workflow SS Monocytes (Bld) [#/Vol] 0.3 103/mcL Normal 0.1 - 1.4 10^3/mcL AO Workflow SS Monocytes/100 WBC (Bld) 6.1 % Normal 2.0 - 13.0 % AO Workflow SS Neutrophils (Bld) [#/Vol] 3.7 103/mcL Normal 2.3 - 8.1 10^3/mcL AO Workflow SS Neutrophils/100 WBC (Bld) 67.7 % Normal 50.0 - 75.0 % AO Workflow SS Parathyrin.intact [Mass/Vol] 96.0 pg/mL High 18.5 - 88.0 pg/mL AH ADM SS Platelet mean volume (Bld) [Entitic vol] 8.2 fL Normal 6.4 - 10.5 fL AO Workflow SS Platelets (Bld) [#/Vol] 214 103/mcL Normal 150 - 450 10^3/mcL AO Workflow SS Potassium [Moles/Vol] 4.4 mmol/L Normal 3.5 - 5.1 mmol/L AO ADM SS Protein [Mass/Vol] 6.6 G/dL Normal 6.4 - 8.2 G/dL AO ADM SS RBC (Bld) [#/Vol] 4.05 106/mcL Low 4.50 - 6.0 0 10^6/mcL AO Workflow SS Sodium [Moles/Vol] 140 mmol/L Normal 136 - 145 mmol/L AO ADM SS TSH Qn 0.68 m[IU]/L Normal 0.36 - 3.74 mcIU/mL AO ADM SS Urea nitrogen [Mass/Vol] 20 mg/dL High 7 - 18 mg/dL AO ADM SS Urea nitrogen/Creatinine [Mass ratio] 17 ratio Normal 7 - 27 ratio AO ADM SS Uric Acid Lvl 5.5 mg/dL Normal 3.5 - 7.2 mg/dL AO ADM SS WBC (Bld) [#/Vol] 5.5 103/mcL Normal 4.5 - 10.8 10^3/mcL AO Workflow SS LABORATORYOrdered By: Sky Elias on 04-19-2025 Calcium Ionized 1.14 mmol/L Normal 1.12 - 1.32 mmol/L AO Rapid Comm SS Cholesterol [Mass/Vol] 84 mg/dL Normal 0 - 200 mg/dL AO ADM SS Comment on above: Interpretive Data: C holesterol Reference Interval: Less than 200 Desirable 200-239 Borderline high risk 240 and above High risk Cholesterol in HDL [Mass/Vol] 39 mg/dL Low 40 - 60 mg/dL AO ADM SS Cholesterol in LDL [Mass/Vol] 36 mg/dL Normal 0 - 130 mg/dL AO ADM SS Triglyceride [Mass/Vol] 47 mg/dL Normal 0 - 150 mg/dL AO ADM SS Comment on above: Interpretive Data: T riglyceride Reference Interval: Less than 150 Normal 150-199 Borderline high risk 200-499 High risk 500 or higher Very high risk LIPIDon 04-19-2025 Cholesterol [Mass/Vol] 84 mg/dL Normal 0-200 [facility] Comment on above: Result Comment: Chol esterol Reference Interval: Less than 200 Desirable 200-239 Borderline high risk 240 and above High risk Performed By: #### U James UAMICAO #### [address] [address] Cholesterol in HDL [Mass/Vol] 39 mg/dL Low 40-60 [facility] Comment on above: Performed By: #### U James UAMICAO #### [address] [address] Cholesterol in LDL [Mass/Vol] 36 mg/dL Normal 0-130 [facility] Comment on above: Performed By: #### U James UAMICAO #### [address] [address] Triglyceride [Mass/Vol] 47 mg/dL Normal 0-150 [facility] Comment on above: Result Comment: Trig lyceride Reference Interval: Less than 150 Normal 150-199 Borderline high risk 200-499 High risk 500 or higher Very high risk Performed By: #### KANNAN Munoz #### [address] [address] PTHon 04-19-2025 PTH, Intact 96.0 pg/mL High 18.5-88.0 [facility] Comment on above: Performed By: #### U James UAMICBERNARDA #### [address] [address] TSHon 04-19-2025 TSH Qn 0.68 m[IU]/L Normal 0.36-3.74 [facility] Comment on above: Performed By: #### A DIFF, CMP, URIC, ANEU, CBC, TSH, VIDH, LIPID, CAION, A1C, FERR, GFR, FT4 #### [address] [address] #### PTH #### [place] [address] URICon 04-19-2025 Uric Acid Lvl 5.5 mg/dL Normal 3.5-7.2 [facility] Comment on above: Performed By: #### KANNAN Munoz #### [address] [address] VIDHon 04-19-2025 Vit. D 25-Hydroxy 51.1 ng/mL Normal [facility] Comment on above: Result Comment: Inte rpretive Values Based on Total 25(OH) Vitamin D: Deficient <20 ng/mL Insufficient 20 - <30 ng/mL Sufficient 30-100 ng/mL Performed By: #### U James UAMICAO #### [address] [address] .Auto Diffon 02-19-2025 Basophil, Absolute 0.0 10 3/mcL Normal 0.0-0.3 [facility] Comment on above: Performed By: #### A DIFF, CMP, URIC, ANEU, CBC, TSH, VIDH, LIPID, CAION, A1C, FERR, GFR, FT4 #### [address] [address] #### PTH #### [address] [address] Basophils/100 WBC (Bld) 0.6 % Normal 0.0-2.5 [facility] Comment on above: Performed By: #### A DIFF, CMP, URIC, ANEU, CBC, TSH, VIDH, LIPID, CAION, A1C, FERR, GFR, FT4 #### [address] [address] #### PTH #### [address] [address] Eosinophil, Absolute 0.2 10 3/mcL Normal 0.0-0.7 [facility] Comment on above: Performed By: #### A DIFF, CMP, URIC, ANEU, CBC, TSH, VIDH, LIPID, CAION, A1C, FERR, GFR, FT4 #### [address] [address] #### PTH #### [address] [address] Eosinophils/100 WBC (Bld) 3.1 % Normal 0.0-6.0 [facility] Comment on above: Performed By: #### A DIFF, CMP, URIC, ANEU, CBC, TSH, VIDH, LIPID, CAION, A1C, FERR, GFR, FT4 #### [address] [address] #### PTH #### [address] [address] Lymphocyte, Absolute 1.3 10 3/mcL Normal 0.9-4.3 [facility] Comment on above: Performed By: #### A DIFF, CMP, URIC, ANEU, CBC, TSH, VIDH, LIPID, CAION, A1C, FERR, GFR, FT4 #### [address] [address] #### PTH #### [address] [address] Lymphocytes/100 WBC (Bld) 23.6 % Normal 20.0-40.0 [facility] Comment on above: Performed By: #### A DIFF, CMP, URIC, ANEU, CBC, TSH, VIDH, LIPID, CAION, A1C, FERR, GFR, FT4 #### [address] [address] #### PTH #### [address] [address] Monocyte, Absolute 0.4 10 3/mcL Normal 0.1-1.4 [facility] Comment on above: Performed By: #### A DIFF, CMP, URIC, ANEU, CBC, TSH, VIDH, LIPID, CAION, A1C, FERR, GFR, FT4 #### [address] [address] #### PTH #### [address] [address] Monocytes/100 WBC (Bld) 7.0 % Normal 2.0-13.0 [facility] Comment on above: Performed By: #### A DIFF, CMP, URIC, ANEU, CBC, TSH, VIDH, LIPID, CAION, A1C, FERR, GFR, FT4 #### [address] [address] #### PTH #### [address] [address] Neutrophils/100 WBC (Bld) 65.7 % Normal 50.0-75.0 [facility] Comment on above: Performed By: #### A DIFF, CMP, URIC, ANEU, CBC, TSH, VIDH, LIPID, CAION, A1C, FERR, GFR, FT4 #### [address] [address] #### PTH #### [address] [address] .GFRon 02-19-2025 Estimated Glomerular Filtration Rate 47 ml/min/1.73sqm Normal [facility] Comment on above: Result Comment: Stages of Chronic Kidney Disease (CKD) Stage Description eGFR(ml/min/1.73 sq.m.) CKD 1 Normal kidney function or >=90 normal kindney function with possible kidney damage (ex. Proteinuria) CKD 2 Kidney damage with mild loss 60-89 of kidney function CKD 3a Mild to moderate loss of kidney 45-59 function CKD 3b Moderate to severe loss of 30-44 of kindey function CKD 4 Severe loss of kidney function 15-29 CKD 5 Kidney failure <15 Note: (go live 2024) the eGFR calculation was updated to the 2020 CKD-EPI creatinine equation without a race factor to calculate the eGFR results. Performed By: #### A DIFF, CMP, URIC, ANEU, CBC, TSH, VIDH, LIPID, CAION, A1C, FERR, GFR, FT4 #### [address] [address] #### PTH #### [address] [address] .NEUABSon 02-19-2025 Neutrophil, Absolute 3.7 10 3/mcL Normal 2.3-8.1 [facility] Comment on above: Performed By: #### A DIFF, CMP, URIC, ANEU, CBC, TSH, VIDH, LIPID, CAION, A1C, FERR, GFR, FT4 #### [address] [address] #### PTH #### [address] [address] A1Con 02-19-2025 Glucose [Mass/Vol] 131 mg/dL Normal [facility] Comment on above: Result Comment: Cony mated Average Glucose calculated by equation ((28.7xA1C)-46.7) Estimated average glucose (eAG) is a calculated value from Hemoglobin A1C and is food service representative of the average blood glucose level in the last 2-3 month period. Normal range: less than 114 mg/dL Performed By: #### A DIFF, CMP, URIC, ANEU, CBC, TSH, VIDH, LIPID, CAION, A1C, FERR, GFR, FT4 #### [address] [address] #### PTH #### [address] [address] HbA1c (Bld) [Mass fraction] 6.2 % Normal 4.3-6.4 [facility] Comment on above: Performed By: #### A DIFF, CMP, URIC, ANEU, CBC, TSH, VIDH, LIPID, CAION, A1C, FERR, GFR, FT4 #### [address] [address] #### PTH #### [address] [address] CBCon 02-19-2025 Erythrocyte distribution width (RBC) [Ratio] 14.7 % Normal 11.5-15.5 [facility] Comment on above: Performed By: #### A DIFF, CMP, URIC, ANEU, CBC, TSH, VIDH, LIPID, CAION, A1C, FERR, GFR, FT4 #### [address] [address] #### PTH #### [address] [address] Hematocrit (Bld) [Volume fraction] 36.7 % Low 40.0-52.0 [facility] Comment on above: Performed By: #### A DIFF, CMP, URIC, ANEU, CBC, TSH, VIDH, LIPID, CAION, A1C, FERR, GFR, FT4 #### [address] [address] #### PTH #### [address] [address] Hgb 12.2 G/dL Low 13.0-17.5 [facility] Comment on above: Performed By: #### A DIFF, CMP, URIC, ANEU, CBC, TSH, VIDH, LIPID, CAION, A1C, FERR, GFR, FT4 #### [address] [address] #### PTH #### [address] [address] MCH (RBC) [Entitic mass] 29.4 pg Normal 27.0-33.0 [facility] Comment on above: Performed By: #### A DIFF, CMP, URIC, ANEU, CBC, TSH, VIDH, LIPID, CAION, A1C, FERR, GFR, FT4 #### [address] [address] #### PTH #### [place] [address] MCHC 33.3 G/dL Normal 32.0-36.0 [facility] Comment on above: Performed By: #### A DIFF, CMP, URIC, ANEU, CBC, TSH, VIDH, LIPID, CAION, A1C, FERR, GFR, FT4 #### [address] [address] #### PTH #### [place] [address] MCV (RBC) [Entitic vol] 88.2 fL Normal 81.0-100.0 [facility] Comment on above: Performed By: #### A DIFF, CMP, URIC, ANEU, CBC, TSH, VIDH, LIPID, CAION, A1C, FERR, GFR, FT4 #### [place] [address] #### PTH #### [place] [address] Platelet 212 10 3/mcL Normal 150-450 [facility] Comment on above: Performed By: #### A DIFF, CMP, URIC, ANEU, CBC, TSH, VIDH, LIPID, CAION, A1C, FERR, GFR, FT4 #### [place] [address] #### PTH #### [place] [address] Platelet mean volume (Bld) [Entitic vol] 8.7 fL Normal 6.4-10.5 [facility] Comment on above: Performed By: #### A DIFF, CMP, URIC, ANEU, CBC, TSH, VIDH, LIPID, CAION, A1C, FERR, GFR, FT4 #### [place] [address] #### PTH #### [place] [address] RBC 4.16 10 6/mcL Low 4.50-6.00 [facility] Comment on above: Performed By: #### A DIFF, CMP, URIC, ANEU, CBC, TSH, VIDH, LIPID, CAION, A1C, FERR, GFR, FT4 #### [address] [address] #### PTH #### [address] [address] WBC 5.6 10 3/mcL Normal 4.5-10.8 [facility] Comment on above: Performed By: #### A DIFF, CMP, URIC, ANEU, CBC, TSH, VIDH, LIPID, CAION, A1C, FERR, GFR, FT4 #### [address] [address] #### PTH #### [address] [address] CMPon 02-19-2025 Albumin Level 2.9 G/dL Low 3.4-4.8 [facility] Comment on above: Performed By: #### A DIFF, CMP, URIC, ANEU, CBC, TSH, VIDH, LIPID, CAION, A1C, FERR, GFR, FT4 #### [address] [address] #### PTH #### [address] [address] Albumin/Globulin [Mass ratio] 0.8 {ratio} Low 1.1-2.5 [facility] Comment on above: Performed By: #### A DIFF, CMP, URIC, ANEU, CBC, TSH, VIDH, LIPID, CAION, A1C, FERR, GFR, FT4 #### [address] [address] #### PTH #### [address] [address] ALP [Catalytic activity/Vol] 108 U/L Normal 40-135 [facility] Comment on above: Performed By: #### A DIFF, CMP, URIC, ANEU, CBC, TSH, VIDH, LIPID, CAION, A1C, FERR, GFR, FT4 #### [address] [address] #### PTH #### [address] [address] ALT [Catalytic activity/Vol] 17 U/L Normal 16-63 [facility] Comment on above: Performed By: #### A DIFF, CMP, URIC, ANEU, CBC, TSH, VIDH, LIPID, CAION, A1C, FERR, GFR, FT4 #### [address] [address] #### PTH #### [place] [address] AST [Catalytic activity/Vol] 20 U/L Normal 10-40 [facility] Comment on above: Performed By: #### A DIFF, CMP, URIC, ANEU, CBC, TSH, VIDH, LIPID, CAION, A1C, FERR, GFR, FT4 #### [place] [address] #### PTH #### [place] [address] Bili Total 0.4 mg/dL Normal 0.2-1.0 [facility] Comment on above: Result Comment: Use of this assay is not recommended for patients undergoing treatment with eltrombopag due to the potential for falsely elevated results. Performed By: #### A DIFF, CMP, URIC, ANEU, CBC, TSH, VIDH, LIPID, CAION, A1C, FERR, GFR, FT4 #### [address] [address] #### PTH #### [place] [address] BUN/Creatinine Ratio 17 ratio Normal 7-27 [facility] Comment on above: Performed By: #### A DIFF, CMP, URIC, ANEU, CBC, TSH, VIDH, LIPID, CAION, A1C, FERR, GFR, FT4 #### [address] [address] #### PTH #### [place] [address] Calcium [Mass/Vol] 8.5 mg/dL Normal 8.4-10.2 [facility] Comment on above: Performed By: #### A DIFF, CMP, URIC, ANEU, CBC, TSH, VIDH, LIPID, CAION, A1C, FERR, GFR, FT4 #### [address] [address] #### PTH #### [address] [address] Chloride [Moles/Vol] 106 mmol/L Normal 98-107 [facility] Comment on above: Performed By: #### A DIFF, CMP, URIC, ANEU, CBC, TSH, VIDH, LIPID, CAION, A1C, FERR, GFR, FT4 #### [address] [address] #### PTH #### [address] [address] CO2 [Moles/Vol] 30 mmol/L Normal 23-31 [facility] Comment on above: Performed By: #### A DIFF, CMP, URIC, ANEU, CBC, TSH, VIDH, LIPID, CAION, A1C, FERR, GFR, FT4 #### [address] [address] #### PTH #### [address] [address] Creatinine [Mass/Vol] 1.43 mg/dL High 0.67-1.17 [facility] Comment on above: Performed By: #### A DIFF, CMP, URIC, ANEU, CBC, TSH, VIDH, LIPID, CAION, A1C, FERR, GFR, FT4 #### [address] [address] #### PTH #### [place] [address] Electrolyte Balance 5.0 mEq/L Normal 4.0-15.0 [facility] Comment on above: Performed By: #### A DIFF, CMP, URIC, ANEU, CBC, TSH, VIDH, LIPID, CAION, A1C, FERR, GFR, FT4 #### [address] [address] #### PTH #### [address] [address] Globulin 3.8 G/dL Normal 2.7-4.4 [facility] Comment on above: Performed By: #### A DIFF, CMP, URIC, ANEU, CBC, TSH, VIDH, LIPID, CAION, A1C, FERR, GFR, FT4 #### [address] [address] #### PTH #### [address] [address] Glucose [Mass/Vol] 129 mg/dL High 83-110 [facility] Comment on above: Performed By: #### A DIFF, CMP, URIC, ANEU, CBC, TSH, VIDH, LIPID, CAION, A1C, FERR, GFR, FT4 #### [address] [address] #### PTH #### [address] [address] Potassium [Moles/Vol] 4.7 mmol/L Normal 3.5-5.1 [facility] Comment on above: Performed By: #### A DIFF, CMP, URIC, ANEU, CBC, TSH, VIDH, LIPID, CAION, A1C, FERR, GFR, FT4 #### [address] [address] #### PTH #### [address] [address] Sodium [Moles/Vol] 141 mmol/L Normal 136-145 [facility] Comment on above: Performed By: #### A DIFF, CMP, URIC, ANEU, CBC, TSH, VIDH, LIPID, CAION, A1C, FERR, GFR, FT4 #### [address] [address] #### PTH #### [address] [address] Total Protein 6.7 G/dL Normal 6.4-8.2 [facility] Comment on above: Performed By: #### A DIFF, CMP, URIC, ANEU, CBC, TSH, VIDH, LIPID, CAION, A1C, FERR, GFR, FT4 #### [address] [address] #### PTH #### [place] [id number] Urea nitrogen [Mass/Vol] 25 mg/dL High 02-26 [facility] Comment on above: Performed By: #### A DIFF, CMP, URIC, ANEU, CBC, TSH, VIDH, LIPID, CAION, A1C, FERR, GFR, FT4 #### [address] [address] #### PTH #### [address] [address] FT4on 02-19-2025 Free T4 [Mass/Vol] 1.02 ng/dL Normal 0.76-1.46 [facility] Comment on above: Performed By: #### A DIFF, CMP, URIC, ANEU, CBC, TSH, VIDH, LIPID, CAION, A1C, FERR, GFR, FT4 #### [address] [address] #### PTH #### [place] [address] LABORATORYOrdered By: SYSTEM SYSTEM on 02-19-2025 25-hydroxyvitamin D3 [Mass/Vol] 53.5 ng/mL Invalid Interpretation Code AO ADM SS Comment on above: Interpretive Data: I nterpretive Values Based on Total 25(OH) Vitamin D: Deficient <20 ng/mL Insufficient 20 - <30 ng/mL Sufficient 30-100 ng/mL Albumin BCP dye [Mass/Vol] 2.9 G/dL Low 3.4 - 4.8 G/dL AO ADM SS Albumin/Globulin [Mass ratio] 0.8 {ratio} Low 1.1 - 2.5 ratio AO ADM SS ALP [Catalytic activity/Vol] 108 U/L Normal 40 - 135 U/L AO ADM SS ALT With P-5'-P [Catalytic activity/Vol] 17 U/L Normal 16 - 63 U/L AO ADM SS AST With P-5'-P [Catalytic activity/Vol] 20 U/L Normal 10 - 40 U/L AO ADM SS Basophils (Bld) [#/Vol] 0.0 103/mcL Normal 0.0 - 0.3 10^3/mcL AO Workflow SS Basophils/100 WBC (Bld) 0.6 % Normal 0.0 - 2.5 % AO Workflow SS Bilirubin [Mass/Vol] 0.4 mg/dL Normal 0.2 - 1 .0 mg/dL AO ADM SS Comment on above: Interpretive Data: U se of this assay is not recommended for patients undergoing treatment with eltrombopag due to the potential for falsely elevated results. Calcium [Mass/Vol] 8.5 mg/dL Normal 8.4 - 10. 2 mg/dL AO ADM SS Chloride [Moles/Vol] 106 mmol/L Normal 98 - 10 7 mmol/L AO ADM SS CO2 [Moles/Vol] 30 mmol/L Normal 23 - 31 mmol/L AO ADM SS Creatinine [Mass/Vol] 1.43 mg/dL High 0.67 - 1.17 mg/dL AO ADM SS Electrolyte Balance 5.0 mEq/L Normal 4.0 - 15 .0 mEq/L AO ADM SS Eosinophil, Absolute 0.2 103/mcL Normal 0.0 - 0 .7 10^3/mcL AO Workflow SS Eosinophils/100 WBC (Bld) 3.1 % Normal 0.0 - 6.0 % AO Workflow SS Erythrocyte distribution width (RBC) [Ratio] 14.7 % Normal 11.5 - 15.5 % AO Workflow SS Estimated Glomerular Filtration Rate 47 ml/min/1.73sqm Invalid Interpretation Code AO Chemistry S Comment on above: Interpretive Data: Stages of Chronic Kidney Disease (CKD) Stage Description eGFR(ml/min/1.73 sq.m.) CKD 1 Normal kidney function or >=90 normal kindney function with possible kidney damage (ex. Proteinuria) CKD 2 Kidney damage with mild loss 60-89 of kidney function CKD 3a Mild to moderate loss of kidney 45-59 function CKD 3b Moderate to severe loss of 30-44 of kindey function CKD 4 Severe loss of kidney function 15-29 CKD 5 Kidney failure <15 Note: (go live 2024) the eGFR calculation was updated to the 2020 CKD-EPI creatinine equation without a race factor to calculate the eGFR results. Free T4 [Mass/Vol] 1.02 ng/dL Normal 0.76 - 1. 46 ng/dL AO ADM SS Globulin 3.8 G/dL Normal 2.7 - 4.4 G/dL AO ADM SS Glucose [Mass/Vol] 129 mg/dL High 83 - 110 mg/dL AO ADM SS Glucose [Mass/Vol] 131 mg/dL Invalid Interpretation Code AO Chemistry S Comment on above: Interpretive Data: E stimated average glucose (eAG) is a calculated value from Hemoglobin A1C and is food service representative of the average blood glucose level in the last 2-3 month period. Normal range: less than 114 mg/dL HbA1c (Bld) [Mass fraction] 6.2 % Normal 4.3 - 6.4 % AO ADM SS Hematocrit (Bld) [Volume fraction] 36.7 % Low 40.0 - 52.0 % AO Workflow SS Hemoglobin (Bld) [Mass/Vol] 12.2 G/dL Low 13.0 - 17.5 G/dL AO Workflow SS Lymphocytes (Bld) [#/Vol] 1.3 103/mcL Normal 0.9 - 4.3 10^3/mcL AO Workflow SS Lymphocytes/100 WBC (Bld) 23.6 % Normal 20.0 - 40.0 % AO Workflow SS MCH (RBC) [Entitic mass] 29.4 pg Normal 27.0 - 33.0 pg AO Workflow SS MCHC 33.3 G/dL Normal 32.0 - 36.0 G/dL AO Workflow SS MCV (RBC) [Entitic vol] 88.2 fL Normal 81.0 - 100.0 fL AO Workflow SS Monocytes (Bld) [#/Vol] 0.4 103/mcL Normal 0.1 - 1.4 10^3/mcL AO Workflow SS Monocytes/100 WBC (Bld) 7.0 % Normal 2.0 - 13.0 % AO Workflow SS Neutrophils (Bld) [#/Vol] 3.7 103/mcL Normal 2.3 - 8.1 10^3/mcL AO Workflow SS Neutrophils/100 WBC (Bld) 65.7 % Normal 50.0 - 75.0 % AO Workflow SS Parathyrin.intact [Mass/Vol] 96.2 pg/mL High 18.5 - 88.0 pg/mL ADM SS Platelet mean volume (Bld) [Entitic vol] 8.7 fL Normal 6.4 - 10.5 fL AO Workflow SS Platelets (Bld) [#/Vol] 212 103/mcL Normal 150 - 450 10^3/mcL AO Workflow SS Potassium [Moles/Vol] 4.7 mmol/L Normal 3.5 - 5.1 mmol/L AO ADM SS Prostate specific Ag [Mass/Vol] 0.27 ng/mL Normal 0.00 - 4.00 ng/mL AO ADM SS Protein [Mass/Vol] 6.7 G/dL Normal 6.4 - 8.2 G/dL AO ADM SS RBC (Bld) [#/Vol] 4.16 106/mcL Low 4.50 - 6.0 0 10^6/mcL AO Workflow SS Sodium [Moles/Vol] 141 mmol/L Normal 136 - 145 mmol/L AO ADM SS TSH Qn 0.98 m[IU]/L Normal 0.36 - 3.74 mcIU/mL AO ADM SS Urea nitrogen [Mass/Vol] 25 mg/dL High 7 - 18 mg/dL AO ADM SS Urea nitrogen/Creatinine [Mass ratio] 17 ratio Normal 7 - 27 ratio AO ADM SS Uric Acid Lvl 6.8 mg/dL Normal 3.5 - 7.2 mg/dL AO ADM SS WBC (Bld) [#/Vol] 5.6 103/mcL Normal 4.5 - 10.8 10^3/mcL AO Workflow SS LABORATORYOrdered By: Elder Fitzpatrick on 02-19-2025 Cholesterol [Mass/Vol] 74 mg/dL Normal 0 - 200 mg/dL AO ADM SS Comment on above: Interpretive Data: C holesterol Reference Interval: Less than 200 Desirable 200-239 Borderline high risk 240 and above High risk Cholesterol in HDL [Mass/Vol] 39 mg/dL Low 40 - 60 mg/dL AO ADM SS Cholesterol in LDL [Mass/Vol] 20 mg/dL Normal 0 - 130 mg/dL AO ADM SS Triglyceride [Mass/Vol] 75 mg/dL Normal 0 - 150 mg/dL AO ADM SS Comment on above: Interpretive Data: T riglyceride Reference Interval: Less than 150 Normal 150-199 Borderline high risk 200-499 High risk 500 or higher Very high risk LIPIDon 02-19-2025 Cholesterol [Mass/Vol] 74 mg/dL Normal 0-200 [facility] Comment on above: Result Comment: Chol esterol Reference Interval: Less than 200 Desirable 200-239 Borderline high risk 240 and above High risk Performed By: #### A DIFF, CMP, URIC, ANEU, CBC, TSH, VIDH, LIPID, CAION, A1C, FERR, GFR, FT4 #### [address] [address] #### PTH #### [address] [address] Cholesterol in HDL [Mass/Vol] 39 mg/dL Low 40-60 [facility] Comment on above: Performed By: #### A DIFF, CMP, URIC, ANEU, CBC, TSH, VIDH, LIPID, CAION, A1C, FERR, GFR, FT4 #### [address] [address] #### PTH #### [address] [address] Cholesterol in LDL [Mass/Vol] 20 mg/dL Normal 0-130 [facility] Comment on above: Performed By: #### A DIFF, CMP, URIC, ANEU, CBC, TSH, VIDH, LIPID, CAION, A1C, FERR, GFR, FT4 #### [address] [address] #### PTH #### [address] [address] Triglyceride [Mass/Vol] 75 mg/dL Normal 0-150 [facility] Comment on above: Result Comment: Trig lyceride Reference Interval: Less than 150 Normal 150-199 Borderline high risk 200-499 High risk 500 or higher Very high risk Performed By: #### A DIFF, CMP, URIC, ANEU, CBC, TSH, VIDH, LIPID, CAION, A1C, FERR, GFR, FT4 #### [address] [address] #### PTH #### [address] [address] PSAon 02-19-2025 Prostate Specific Antigen 0.27 ng/mL Normal 0.00-4.00 [facility] Comment on above: Order Comment: cc karen otto to Dr. Palmer Performed By: #### A DIFF, CMP, URIC, ANEU, CBC, TSH, VIDH, LIPID, CAION, A1C, FERR, GFR, FT4 #### [address] [address] #### PTH #### [address] [address] PTHon 02-19-2025 PTH, Intact 96.2 pg/mL High 18.5-88.0 [facility] Comment on above: Performed By: #### A DIFF, CMP, URIC, ANEU, CBC, TSH, VIDH, LIPID, CAION, A1C, FERR, GFR, FT4 #### [address] [address] #### PTH #### [place] [address] TSHon 02-19-2025 TSH Qn 0.98 m[IU]/L Normal 0.36-3.74 [facility] Comment on above: Performed By: #### A DIFF, CMP, URIC, ANEU, CBC, TSH, VIDH, LIPID, CAION, A1C, FERR, GFR, FT4 #### [address] [address] #### PTH #### [place] [address] URICon 02-19-2025 Uric Acid Lvl 6.8 mg/dL Normal 3.5-7.2 [facility] Comment on above: Performed By: #### A DIFF, CMP, URIC, ANEU, CBC, TSH, VIDH, LIPID, CAION, A1C, FERR, GFR, FT4 #### [address] [address] #### PTH #### [place] [address] VIDHon 02-19-2025 Vit. D 25-Hydroxy 53.5 ng/mL Normal [facility] Comment on above: Result Comment: Inte rpretive Values Based on Total 25(OH) Vitamin D: Deficient <20 ng/mL Insufficient 20 - <30 ng/mL Sufficient 30-100 ng/mL Performed By: #### A DIFF, CMP, URIC, ANEU, CBC, TSH, VIDH, LIPID, CAION, A1C, FERR, GFR, FT4 #### [address] [address] #### PTH #### [address] [address] .GFRon 02-18-2025 Estimated Glomerular Filtration Rate 48 ml/min/1.73sqm Normal [facility] Comment on above: Result Comment: Stages of Chronic Kidney Disease (CKD) Stage Description eGFR(ml/min/1.73 sq.m.) CKD 1 Normal kidney function or >=90 normal kindney function with possible kidney damage (ex. Proteinuria) CKD 2 Kidney damage with mild loss 60-89 of kidney function CKD 3a Mild to moderate loss of kidney 45-59 function CKD 3b Moderate to severe loss of 30-44 of kindey function CKD 4 Severe loss of kidney function 15-29 CKD 5 Kidney failure <15 Note: (go live 2024) the eGFR calculation was updated to the 2020 CKD-EPI creatinine equation without a race factor to calculate the eGFR results. Performed By: #### A DIFF, CMP, URIC, ANEU, CBC, TSH, VIDH, LIPID, CAION, A1C, FERR, GFR, FT4 #### [address] [address] #### PTH #### [place] [id number] CREon 02-18-2025 Creatinine [Mass/Vol] 1.42 mg/dL High 0.67-1.17 [facility] Comment on above: Performed By: #### A DIFF, CMP, URIC, ANEU, CBC, TSH, VIDH, LIPID, CAION, A1C, FERR, GFR, FT4 #### [address] [address] #### PTH #### [place] [address] [address] ABDOMEN/PELVIS W/CONTRAST on 02-18-2025 CT ABDOMEN/PELVIS W/CONTRAST ORIGINAL EXAMINATION: CT OF THE ABDOMEN AND PELVIS WITH CONTRAST 02/18/2025 1:26 pm TECHNIQUE: CT of the abdomen and pelvis was performed with the administration of intravenous contrast. Multiplanar reformatted images are provided for review. Automated exposure control, iterative reconstruction, and/or weight based adjustment of the mA/kV was utilized to reduce the radiation dose to as low as reasonably achievable. COMPARISON: December 02, 2023 HISTORY: ORDERING SYSTEM PROVIDED HISTORY: Reason for Exam: previous abn CT, mesenteric mass previous abn CT, mesenteric mass FINDINGS: Moderate degenerative changes are noted in the spine. 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 No acute osseous abnormality seen. Minimal areas of scarring are evident at the lung bases. Small sliding hiatal hernia noted. The gallbladder is not visible and may be contracted or absent. No focal liver lesion seen. The spleen, adrenal glands and pancreas are unremarkable. Scattered renal cysts are present. No other kidney finding. Lobulated mass lesion at the mesentery eccentric toward the left is again identified, slightly larger than on the prior exam. The bulk of the lesion is currently 4.7 x 3.1 cm, previously 3.8 x 2.2 cm. Right lower quadrant mesenteric adenopathy with some adjacent infiltrative change is again seen, and this is also slightly greater than on the prior exam. The largest discrete lymph node in this area is currently 1.6 cm, previously 1.1 cm. No new area of adenopathy is evident and there are no additional mesenteric lesions seen. 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 TURP defect seen. Mild sigmoid and left colon diverticulosis is evident, without diverticulitis. No other definite GI tract abnormality is visible. No additional contributory finding. IMPRESSION: 1. Slight interval increase in size of the mesenteric mass lesion since the prior exam. Neoplasm remains of concern. 2. Slight increase in right lower quadrant mesenteric adenopathy and infiltrative change. Neoplasm, including lymphoproliferative disorder, remains a consideration. 3. Diverticulosis without diverticulitis. Interpreted by: Sp Dewitt MD Preliminary Report By: Sp Dewitt MD Electronically signed By Sp Dewitt MD Dictated Date: 02/18/2025 1:50:53 PM Prelim Date: 02/18/2025 1:55:53 PM Sign Date: 02/18/2025 1:55:53 PM Ordering Provider: RANDY CAMACHO Interpreted by: Sp Dewitt MD Preliminary Report By: Sp Dewitt MD Electronically signed By Sp Dewitt MD Dictated Date: 02/18/2025 1:50:53 PM Prelim Date: 02/18/2025 1:55:53 PM Sign Date: 02/18/2025 1:55:53 PM Ordering Provider: RANDY CAMACHO [facility] LABORATORYOrdered By: SYSTEM SYSTEM on 02-18-2025 Creatinine [Mass/Vol] 1.42 mg/dL High 0.67 - 1.17 mg/dL AO ADM SS Estimated Glomerular Filtration Rate 48 ml/min/1.73sqm Invalid Interpretation Code AO Chemistry S Comment on above: Interpretive Data: Stages of Chronic Kidney Disease (CKD) Stage Description eGFR(ml/min/1.73 sq.m.) CKD 1 Normal kidney function or >=90 normal kindney function with possible kidney damage (ex. Proteinuria) CKD 2 Kidney damage with mild loss 60-89 of kidney function CKD 3a Mild to moderate loss of kidney 45-59 function CKD 3b Moderate to severe loss of 30-44 of kindey function CKD 4 Severe loss of kidney function 15-29 CKD 5 Kidney failure <15 Note: (go live 2024) the eGFR calculation was updated to the 2020 CKD-EPI creatinine equation without a race factor to calculate the eGFR results. XR CHEST 2 VIEWSon XR CHEST 2 VIEWS ORIGINAL EXAMINATION: TWO XRAY VIEWS OF THE CHEST 01/07/2025 11:52 am COMPARISON: Chest x-ray on 07/21/2021 HISTORY: ORDERING SYSTEM PROVIDED HISTORY: Reason for Exam: cough, congestion in lungs FINDINGS: The heart size is at the upper limits of normal. There is no lung infiltrate or edema. No pneumothorax or pleural fluid is present. There is mild thoracic spondylosis with no fracture or subluxation. No acute skeletal abnormality is present. IMPRESSION: No acute cardiopulmonary process. Interpreted by: Damon Ahuja MD Preliminary Report By: Damon Ahuja MD Electronically signed By Damon Ahuja MD Dictated Date: 01/09/2025 6:26:47 AM Prelim Date: 01/09/2025 6:28:33 AM Sign Date: 01/09/2025 6:28:33 AM Ordering Provider: SP POPE [facility] A1Con 09-16-2024 Glucose [Mass/Vol] 131 mg/dL Normal [facility] Comment on above: Result Comment: Cony mated Average Glucose calculated by equation ((28.7xA1C)-46.7) Estimated average glucose (eAG) is a calculated value from Hemoglobin A1C and is food service representative of the average blood glucose level in the last 2-3 month period. Normal range: less than 114 mg/dL Performed By: #### A DIFF, CMP, URIC, ANEU, CBC, TSH, VIDH, LIPID, CAION, A1C, FERR, GFR, FT4 #### [address] [address] #### PTH #### [address] [address] HbA1c (Bld) [Mass fraction] 6.2 % Normal 4.3-6.4 [facility] Comment on above: Performed By: #### A DIFF, CMP, URIC, ANEU, CBC, TSH, VIDH, LIPID, CAION, A1C, FERR, GFR, FT4 #### [address] [address] #### PTH #### [address] [address] .GFRon 09-15-2024 Estimated Glomerular Filtration Rate 44 ml/min/1.73sqm Normal [facility] Comment on above: Result Comment: Stages of Chronic Kidney Disease (CKD) Stage Description eGFR(ml/min/1.73 sq.m.) CKD 1 Normal kidney function or >=90 normal kindney function with possible kidney damage (ex. Proteinuria) CKD 2 Kidney damage with mild loss 60-89 of kidney function CKD 3a Mild to moderate loss of kidney 45-59 function CKD 3b Moderate to severe loss of 30-44 of kindey function CKD 4 Severe loss of kidney function 15-29 CKD 5 Kidney failure <15 Note: (go live 2024) the eGFR calculation was updated to the 2020 CKD-EPI creatinine equation without a race factor to calculate the eGFR results. Performed By: #### A DIFF, CMP, URIC, ANEU, CBC, TSH, VIDH, LIPID, CAION, A1C, FERR, GFR, FT4 #### [address] [address] #### PTH #### [place] [address] .Urinalysis Microscopic (AO) on 09-15-2024 UA Bacteria 2+ /hpf Abnormal [facility] Comment on above: Performed By: #### A DIFF, CMP, URIC, ANEU, CBC, TSH, VIDH, LIPID, CAION, A1C, FERR, GFR, FT4 #### [address] [address] #### PTH #### [place] [address] UA RBC 5-10 Abnormal None Seen [facility] Comment on above: Performed By: #### A DIFF, CMP, URIC, ANEU, CBC, TSH, VIDH, LIPID, CAION, A1C, FERR, GFR, FT4 #### [place] [address] #### PTH #### [place] [address] UA Squam Epithelial 0-5 Abnormal None Seen [facility] Comment on above: Performed By: #### A DIFF, CMP, URIC, ANEU, CBC, TSH, VIDH, LIPID, CAION, A1C, FERR, GFR, FT4 #### [address] [address] #### PTH #### [place] [address] UA WBC LOADED Abnormal None Seen [facility] Comment on above: Performed By: #### A DIFF, CMP, URIC, ANEU, CBC, TSH, VIDH, LIPID, CAION, A1C, FERR, GFR, FT4 #### [address] [address] #### PTH #### [place] [address] BMPon 09-15-2024 BUN/Creatinine Ratio 21 ratio Normal 7-27 [facility] Comment on above: Performed By: #### A DIFF, CMP, URIC, ANEU, CBC, TSH, VIDH, LIPID, CAION, A1C, FERR, GFR, FT4 #### [place] [address] #### PTH #### [address] [address] Calcium [Mass/Vol] 8.5 mg/dL Normal 8.4-10.2 [facility] Comment on above: Performed By: #### A DIFF, CMP, URIC, ANEU, CBC, TSH, VIDH, LIPID, CAION, A1C, FERR, GFR, FT4 #### [address] [address] #### PTH #### [place] [address] Chloride [Moles/Vol] 102 mmol/L Normal 98-107 [facility] Comment on above: Performed By: #### A DIFF, CMP, URIC, ANEU, CBC, TSH, VIDH, LIPID, CAION, A1C, FERR, GFR, FT4 #### [place] [address] #### PTH #### [place] [address] CO2 [Moles/Vol] 27 mmol/L Normal 23-31 [facility] Comment on above: Performed By: #### A DIFF, CMP, URIC, ANEU, CBC, TSH, VIDH, LIPID, CAION, A1C, FERR, GFR, FT4 #### [address] [address] #### PTH #### [place] [address] Creatinine [Mass/Vol] 1.53 mg/dL High 0.70-1.30 [facility] Comment on above: Result Comment: Test ing performed on Siemens Dimension EXL analyzer using a modified kinetic Ellie technique. Performed By: #### A DIFF, CMP, URIC, ANEU, CBC, TSH, VIDH, LIPID, CAION, A1C, FERR, GFR, FT4 #### [address] [address] #### PTH #### [place] [address] Electrolyte Balance 6.0 mEq/L Normal 4.0-15.0 [facility] Comment on above: Performed By: #### A DIFF, CMP, URIC, ANEU, CBC, TSH, VIDH, LIPID, CAION, A1C, FERR, GFR, FT4 #### [address] [address] #### PTH #### [address] [address] Glucose [Mass/Vol] 107 mg/dL Normal 83-110 [facility] Comment on above: Performed By: #### A DIFF, CMP, URIC, ANEU, CBC, TSH, VIDH, LIPID, CAION, A1C, FERR, GFR, FT4 #### [address] [address] #### PTH #### [address] [address] Potassium [Moles/Vol] 4.7 mmol/L Normal 3.5-5.1 [facility] Comment on above: Performed By: #### A DIFF, CMP, URIC, ANEU, CBC, TSH, VIDH, LIPID, CAION, A1C, FERR, GFR, FT4 #### [address] [address] #### PTH #### [address] [address] Sodium [Moles/Vol] 135 mmol/L Low 136-145 [facility] Comment on above: Performed By: #### A DIFF, CMP, URIC, ANEU, CBC, TSH, VIDH, LIPID, CAION, A1C, FERR, GFR, FT4 #### [address] [address] #### PTH #### [address] [address] Urea nitrogen [Mass/Vol] 32 mg/dL High 7-18 [facility] Comment on above: Performed By: #### A DIFF, CMP, URIC, ANEU, CBC, TSH, VIDH, LIPID, CAION, A1C, FERR, GFR, FT4 #### [address] [address] #### PTH #### [facility] [address] [place] [id number] LABORATORYOrdered By: [facility] on 09-15-2024 Calcium [Mass/Vol] 8.5 mg/dL Normal 8.4 - 10. 2 mg/dL AO ADM SS Chloride [Moles/Vol] 102 mmol/L Normal 98 - 10 7 mmol/L AO ADM SS CO2 [Moles/Vol] 27 mmol/L Normal 23 - 31 mmol/L AO ADM SS Creatinine [Mass/Vol] 1.53 mg/dL High 0.70 - 1.30 mg/dL AO ADM SS Comment on above: Interpretive Data: T esting performed on Siemens Dimension EXL analyzer using a modified kinetic Ellie technique. Electrolyte Balance 6.0 mEq/L Normal 4.0 - 15 .0 mEq/L AO ADM SS Estimated Glomerular Filtration Rate 44 ml/min/1.73sqm Invalid Interpretation Code AO Chemistry S Comment on above: Interpretive Data: Stages of Chronic Kidney Disease (CKD) Stage Description eGFR(ml/min/1.73 sq.m.) CKD 1 Normal kidney function or >=90 normal kindney function with possible kidney damage (ex. Proteinuria) CKD 2 Kidney damage with mild loss 60-89 of kidney function CKD 3a Mild to moderate loss of kidney 45-59 function CKD 3b Moderate to severe loss of 30-44 of kindey function CKD 4 Severe loss of kidney function 15-29 CKD 5 Kidney failure <15 Note: (go live 2024) the eGFR calculation was updated to the 2020 CKD-EPI creatinine equation without a race factor to calculate the eGFR results. Glucose [Mass/Vol] 107 mg/dL Normal 83 - 110 mg/dL AO ADM SS Potassium [Moles/Vol] 4.7 mmol/L Normal 3.5 - 5.1 mmol/L AO ADM SS Sodium [Moles/Vol] 135 mmol/L Low 136 - 145 mmol/L AO ADM SS Urea nitrogen [Mass/Vol] 32 mg/dL High 7 - 18 mg/dL AO ADM SS Urea nitrogen/Creatinine [Mass ratio] 21 ratio Normal 7 - 27 ratio AO ADM SS LABORATORYOrdered By: Valeri Barton on 09-15-2024 Appearance (U) Cloudy *ABN* (09/15/24 1:56 PM) Invalid Interpretation Code Clear AO Auto Urine SS Bacteria LM.HPF (Urine sed) [#/Area] 2 /[HPF] Invalid Interpretation Code AO Auto Urine SS Bilirubin Ql (U) Negative (09/15/24 1:56 PM) Normal Negative AO Auto Urine SS Color (U) Yellow (09/15/24 1:56 PM) Normal AO Auto Urine SS Glucose Test strip (U) [Mass/Vol] Negative Normal Negative AO Auto Urine SS Hemoglobin Auto test strip (U) [Mass/Vol] Moderate *ABN* (09/15/24 1:56 PM) Invalid Interpretation Code Negative AO Auto Urine SS Ketones Ql (U) Negative Normal Negative AO Auto Ur ine SS UA Leuk Est Large *ABN* (09/15/24 1:56 PM) Invalid Interpretation Code Negative AO Auto Urine SS UA Nitrite Negative (09/15/24 1:56 PM) Normal Negative AO Auto Urine SS UA pH 6.0 (09/15/24 1:56 PM) Normal 5.0 - 8.0 AO Auto Urine SS UA Protein 100 mg/dL Invalid Interpretation Code Negative AO Auto Urine SS UA RBC 5-10 /HPF Invalid Interpretation Code None Seen AO Auto Urine SS UA Spec Grav 1.020 (09/15/24 1:56 PM) Normal 1.015-1.025 AO Auto Urine SS UA Specimen Type Clean Catch (09/15/24 1:56 PM) Normal AO Auto Urine SS UA Squam Epithelial 0-5 /HPF Invalid Interpretation Code None Seen AO Auto Urine SS UA Urobilinogen 0.2 E.U./dL Normal 0.2-1.0 AO Auto Urine SS WBC LM.HPF (Urine sed) [#/Area] LOADED /HPF Invalid Interpretation Code None Seen AO Auto Urine SS No Panel Informationon 09-15 Aerococcus urinae Aerococcus urinae [facility] Culture Urine >100,000 cfu/ml Aerococcus urinae Sensitivity testing is not recommended for one of the following reasons: 1. Established susceptibility patterns are available or 2. Interpretative criteria are not available. [facility] UAon 09-15-2024 Color (U) Yellow Normal [facility] Comment on above: Performed By: #### A DIFF, CMP, URIC, ANEU, CBC, TSH, VIDH, LIPID, CAION, A1C, FERR, GFR, FT4 #### [address] [address] #### PTH #### [address] [address] Glucose (U) [Mass/Vol] Negative Normal Negative [facility] Comment on above: Performed By: #### A DIFF, CMP, URIC, ANEU, CBC, TSH, VIDH, LIPID, CAION, A1C, FERR, GFR, FT4 #### [address] [address] #### PTH #### [address] [address] Ketones Ql (U) Negative Normal Negative [facility] Comment on above: Performed By: #### A DIFF, CMP, URIC, ANEU, CBC, TSH, VIDH, LIPID, CAION, A1C, FERR, GFR, FT4 #### [address] [address] #### PTH #### [place] [address] UA Appear Cloudy Abnormal Clear [facility] Comment on above: Performed By: #### A DIFF, CMP, URIC, ANEU, CBC, TSH, VIDH, LIPID, CAION, A1C, FERR, GFR, FT4 #### [address] [address] #### PTH #### [place] [address] UA Blood Moderate Abnormal Negative [facility] Comment on above: Performed By: #### A DIFF, CMP, URIC, ANEU, CBC, TSH, VIDH, LIPID, CAION, A1C, FERR, GFR, FT4 #### [address] [address] #### PTH #### [place] [id number] UA Leuk Est Large Abnormal Negative [facility] Comment on above: Performed By: #### A DIFF, CMP, URIC, ANEU, CBC, TSH, VIDH, LIPID, CAION, A1C, FERR, GFR, FT4 #### [place] [address] #### PTH #### [place] [address] UA Nitrite Negative Normal Negative [facility] Comment on above: Performed By: #### A DIFF, CMP, URIC, ANEU, CBC, TSH, VIDH, LIPID, CAION, A1C, FERR, GFR, FT4 #### [place] [address] #### PTH #### [place] [address] UA pH 6.0 Normal 5.0 - 8.0 [facility] Comment on above: Performed By: #### A DIFF, CMP, URIC, ANEU, CBC, TSH, VIDH, LIPID, CAION, A1C, FERR, GFR, FT4 #### [place] [address] #### PTH #### [place] [address] UA Protein 100 mg/dL Abnormal Negative [facility] Comment on above: Performed By: #### A DIFF, CMP, URIC, ANEU, CBC, TSH, VIDH, LIPID, CAION, A1C, FERR, GFR, FT4 #### [place] [address] #### PTH #### [place] [address] UA Spec Grav 1.020 Normal 1.015-1.025 [facility] Comment on above: Performed By: #### A DIFF, CMP, URIC, ANEU, CBC, TSH, VIDH, LIPID, CAION, A1C, FERR, GFR, FT4 #### [place] [address] #### PTH #### [place] [address] UA Specimen Type Clean Catch Normal [facility] Comment on above: Performed By: #### A DIFF, CMP, URIC, ANEU, CBC, TSH, VIDH, LIPID, CAION, A1C, FERR, GFR, FT4 #### [place] [address] #### PTH #### [place] [address] UA Urobilinogen 0.2 E.U./dL Normal 0.2-1.0 [facility] Comment on above: Performed By: #### A DIFF, CMP, URIC, ANEU, CBC, TSH, VIDH, LIPID, CAION, A1C, FERR, GFR, FT4 #### [place] [address] #### PTH #### [place] [address] Urobilinogen (U) [Mass/Vol] Negative Normal Negative [facility] Comment on above: Performed By: #### A DIFF, CMP, URIC, ANEU, CBC, TSH, VIDH, LIPID, CAION, A1C, FERR, GFR, FT4 #### [place] [address] #### PTH #### [place] [address] .Urinalysis Microscopic (AO) on 08-25-2024 UA Bacteria 3+ /hpf Abnormal [facility] Comment on above: Performed By: #### U A, UAMICAO #### [address] [address] UA RBC None Seen Normal None Seen [facility] Comment on above: Performed By: #### U A, UAMICAO #### [place] [address] UA Squam Epithelial 0-5 Abnormal None Seen [facility] Comment on above: Performed By: #### U A, UAMICAO #### [place] [address] UA WBC 15-25 Abnormal None Seen [facility] Comment on above: Performed By: #### U A, UAMICAO #### [place] [address] UAon 08-25-2024 Color (U) Yellow Normal [facility] Comment on above: Performed By: #### U A, UAMICAO #### [place] [address] Glucose (U) [Mass/Vol] Negative Normal Negative [facility] Comment on above: Performed By: #### U A, UAMICAO #### [place] [address] Ketones Ql (U) Negative Normal Negative [facility] Comment on above: Performed By: #### U A, UAMICAO #### [place] [address] UA Appear Slightly Cloudy Abnormal Clear [facility] Comment on above: Performed By: #### U A, UAMICAO #### [place] [address] UA Blood Negative Normal Negative [facility] Comment on above: Performed By: #### U A, UAMICAO #### [place] [address] UA Leuk Est Small Abnormal Negative [facility] Comment on above: Performed By: #### U A, UAMICAO #### [place] [address] UA Nitrite Negative Normal Negative [facility] Comment on above: Performed By: #### U A, UAMICAO #### [place] [address] UA pH 5.5 Normal 5.0 - 8.0 [facility] Comment on above: Performed By: #### U A, UAMICAO #### [place] [address] UA Protein Negative Normal Negative [facility] Comment on above: Performed By: #### U A, UAMICAO #### [place] [address] UA Spec Grav 1.015 Normal 1.015-1.025 [facility] Comment on above: Performed By: #### U A, UAMICAO #### [facility] [address] [place], [place] [address] UA Specimen Type Clean Catch Normal [facility] Comment on above: Performed By: #### U A, UAMICAO #### [facility] [address] [place], [place] [address] UA Urobilinogen 0.2 E.U./dL Normal 0.2-1.0 [facility] Comment on above: Performed By: #### U A, UAMICAO #### [place] [address] [place], [place] [address] Urobilinogen (U) [Mass/Vol] Negative Normal Negative [facility] Comment on above: Performed By: #### U A, UAMICAO #### [place] [address] [place], [place] [address] LABORATORYOrdered By: Elder Fitzpatrick on 08-24-2024 Appearance (U) Slightly Cloudy *ABN* (08/24/24 5:46 PM) Invalid Interpretation Code Clear AO Auto Urine SS Bacteria LM.HPF (Urine sed) [#/Area] 3 /[HPF] Invalid Interpretation Code AO Auto Urine SS Bilirubin Ql (U) Negative (08/24/24 5:46 PM) Normal Negative AO Auto Urine SS Color (U) Yellow (08/24/24 5:46 PM) Normal AO Auto Urine SS Glucose Test strip (U) [Mass/Vol] Negative Normal Negative AO Auto Urine SS Hemoglobin Auto test strip (U) [Mass/Vol] Negative (08/24/24 5:46 PM) Normal Negative AO Auto Urine SS Ketones Ql (U) Negative Normal Negative AO Auto Ur ine SS UA Leuk Est Small *ABN* (08/24/24 5:46 PM) Invalid Interpretation Code Negative AO Auto Urine SS UA Nitrite Negative (08/24/24 5:46 PM) Normal Negative AO Auto Urine SS UA pH 5.5 (08/24/24 5:46 PM) Normal 5.0 - 8.0 AO Auto Urine SS UA Protein Negative Normal Negative AO Auto Urine SS UA RBC None Seen /HPF Normal None Seen AO Auto Ur ine SS UA Spec Grav 1.015 (08/24/24 5:46 PM) Normal 1.015-1.025 AO Auto Urine SS UA Specimen Type Clean Catch (08/24/24 5:46 PM) Normal AO Auto Urine SS UA Squam Epithelial 0-5 /HPF Invalid Interpretation Code None Seen AO Auto Urine SS UA Urobilinogen 0.2 E.U./dL Normal 0.2-1.0 AO Auto Urine SS WBC LM.HPF (Urine sed) [#/Area] 15-25 /HPF Invalid Interpretation Code None Seen AO Auto Urine SS No Panel Informationon 08-24 Culture Urine >100,000 cfu/ml Mixe d growth consistent with normal urogenital johnathan. [facility] LABORATORYOrdered By: Isa Lomeli on 04-29-2024 Albumin DL <= 20 mg/L (U) [Mass/Vol] 197 mcg/dL Invalid Interpretation Code AO ADM SS Albumin/Creatinine DL <= 20 mg/L (U) [Mass ratio] 4 mcg/mg Normal 0 - 30 mcg/mg AO ADM SS Creatinine (U) [Mass/Vol] 55.1 mg/dL Normal 39.0 - 259.0 mg/dL AO ADM SS Calcium Ionized 1.17 mmol/L Normal 1.12 - 1.32 mmol/L AO Rapid Comm SS Cholesterol [Mass/Vol] 91 mg/dL Normal 0 - 200 mg/dL AO ADM SS Comment on above: Interpretive Data: C holesterol Reference Interval: Less than 200 Desirable 200-239 Borderline high risk 240 and above High risk Cholesterol in HDL [Mass/Vol] 38 mg/dL Low 40 - 60 mg/dL AO ADM SS Cholesterol in LDL [Mass/Vol] 35 mg/dL Normal 0 - 130 mg/dL AO ADM SS Triglyceride [Mass/Vol] 88 mg/dL Normal 0 - 150 mg/dL AO ADM SS Comment on above: Interpretive Data: T riglyceride Reference Interval: Less than 150 Normal 150-199 Borderline high risk 200-499 High risk 500 or higher Very high risk LABORATORYOrdered By: SYSTEM SYSTEM on 04-29-2024 25-hydroxyvitamin D3 [Mass/Vol] 54.7 ng/mL Invalid Interpretation Code AO ADM SS Comment on above: Interpretive Data: I nterpretive Values Based on Total 25(OH) Vitamin D: Deficient <20 ng/mL Insufficient 20 - <30 ng/mL Sufficient 30-100 ng/mL Albumin BCP dye [Mass/Vol] 3.1 G/dL Low 3.4 - 4.8 G/dL AO ADM SS Albumin/Globulin [Mass ratio] 0.8 {ratio} Low 1.1 - 2.5 ratio AO ADM SS ALP [Catalytic activity/Vol] 131 U/L Normal 40 - 135 U/L AO ADM SS ALT With P-5'-P [Catalytic activity/Vol] 17 U/L Normal 16 - 63 U/L AO ADM SS AST With P-5'-P [Catalytic activity/Vol] 19 U/L Normal 10 - 40 U/L AO ADM SS Basophils (Bld) [#/Vol] 0.0 103/mcL Normal 0.0 - 0.2 10^3/mcL AO Workflow SS Basophils/100 WBC (Bld) 0.3 % Normal 0.0 - 2.5 % AO Workflow SS Bilirubin [Mass/Vol] 0.4 mg/dL Normal 0.2 - 1 .0 mg/dL AO ADM SS Comment on above: Interpretive Data: U se of this assay is not recommended for patients undergoing treatment with eltrombopag due to the potential for falsely elevated results. Calcium [Mass/Vol] 8.6 mg/dL Normal 8.4 - 10. 2 mg/dL AO ADM SS Chloride [Moles/Vol] 105 mmol/L Normal 98 - 10 7 mmol/L AO ADM SS CO2 [Moles/Vol] 32 mmol/L High 23 - 31 mmol/L AO ADM SS Creatinine [Mass/Vol] 1.31 mg/dL High 0.70 - 1.30 mg/dL AO ADM SS Comment on above: Interpretive Data: T esting performed on Siemens Dimension EXL analyzer using a modified kinetic Ellie technique. Electrolyte Balance 4.0 mEq/L Normal 4.0 - 15 .0 mEq/L AO ADM SS Eosinophil, Absolute 0.2 103/mcL Normal 0.0 - 0 .4 10^3/mcL AO Workflow SS Eosinophils/100 WBC (Bld) 2.6 % Normal 0.0 - 7.0 % AO Workflow SS Erythrocyte distribution width (RBC) [Ratio] 14.3 % Normal 11.5 - 14.5 % AO Workflow SS Free T4 [Mass/Vol] 0.95 ng/dL Normal 0.76 - 1. 46 ng/dL AO ADM SS GFR/1.73 sq M.predicted among blacks MDRD (S/P/Bld) [Vol rate/Area] 63 ml/min/1.73sqm Invalid Interpretation Code AO Chemistry S Comment on above: Interpretive Data: GFR Population mean for , Non- Americans Ages 20-29 = 116 mL/min/1.73 sq.m. Ages 30-39 = 107 mL/min/1.73 sq.m. Ages 40-49 = 99 mL/min/1.73 sq.m. Ages 50-59 = 93 mL/min/1.73 sq.m. Ages 60-69 = 85 mL/min/1.73 sq.m. Ages 70+ = 75 mL/min/1.73 sq.m. Chronic Kidney Disease: Less than 60 mL/min/1.73 square meters End Stage Renal Disease: Less than 15 mL/min/1.73 square meters GFR/1.73 sq M.predicted among non-blacks MDRD (S/P/Bld) [Vol rate/Area] 52 ml/min/1.73sqm Invalid Interpretation Code AO Chemistry S Comment on above: Interpretive Data: GFR Population mean for , Non- Americans Ages 20-29 = 116 mL/min/1.73 sq.m. Ages 30-39 = 107 mL/min/1.73 sq.m. Ages 40-49 = 99 mL/min/1.73 sq.m. Ages 50-59 = 93 mL/min/1.73 sq.m. Ages 60-69 = 85 mL/min/1.73 sq.m. Ages 70+ = 75 mL/min/1.73 sq.m. Chronic Kidney Disease: Less than 60 mL/min/1.73 square meters End Stage Renal Disease: Less than 15 mL/min/1.73 square meters Globulin 3.8 G/dL Invalid Interpretation Code AO ADM SS Glucose [Mass/Vol] 128 mg/dL Invalid Interpretation Code AO Chemistry S Comment on above: Interpretive Data: E stimated average glucose (eAG) is a calculated value from Hemoglobin A1C and is food service representative of the average blood glucose level in the last 2-3 month period. Normal range: less than 114 mg/dL Glucose [Mass/Vol] 91 mg/dL Normal 83 - 110 mg/dL AO ADM SS HbA1c (Bld) [Mass fraction] 6.1 % Normal 4.3 - 6.4 % AO ADM SS Hematocrit (Bld) [Volume fraction] 37.6 % Low 42.0 - 52.0 % AO Workflow SS Hemoglobin (Bld) [Mass/Vol] 12.6 G/dL Low 14.0 - 18.0 G/dL AO Workflow SS Lymphocytes (Bld) [#/Vol] 1.9 103/mcL Normal 0.8 - 3.9 10^3/mcL AO Workflow SS Lymphocytes/100 WBC (Bld) 29.8 % Normal 10.0 - 50.0 % AO Workflow SS MCH (RBC) [Entitic mass] 30.6 pg Normal 27.0 - 31.2 pg AO Workflow SS MCHC 33.5 G/dL Normal 31.8 - 35.4 G/dL AO Workflow SS MCV (RBC) [Entitic vol] 91.3 fL Normal 80.0 - 94.0 fL AO Workflow SS Monocytes (Bld) [#/Vol] 0.5 103/mcL Normal 0.2 - 1.0 10^3/mcL AO Workflow SS Monocytes/100 WBC (Bld) 7.1 % Normal 1.7 - 13.0 % AO Workflow SS Neutrophils (Bld) [#/Vol] 3.8 103/mcL Normal 2.9 - 6.2 10^3/mcL AO Workflow SS Neutrophils/100 WBC (Bld) 60.2 % Normal 37.0 - 80.0 % AO Workflow SS Parathyrin.intact [Mass/Vol] 80.0 pg/mL Normal 18.5 - 88.0 pg/mL AH ADM SS Platelet mean volume (Bld) [Entitic vol] 7.7 fL Normal 7.4 - 10.4 fL AO Workflow SS Platelets (Bld) [#/Vol] 217 103/mcL Normal 130 - 400 10^3/mcL AO Workflow SS Potassium [Moles/Vol] 4.7 mmol/L Normal 3.5 - 5.1 mmol/L AO ADM SS Protein [Mass/Vol] 6.9 G/dL Normal 6.4 - 8.2 G/dL AO ADM SS RBC (Bld) [#/Vol] 4.12 106/mcL Normal 4.04 - 6.1 3 10^6/mcL AO Workflow SS Sodium [Moles/Vol] 141 mmol/L Normal 136 - 145 mmol/L AO ADM SS TSH Qn 1.01 m[IU]/L Normal 0.36 - 3.74 mcIU/mL AO ADM SS Urea nitrogen [Mass/Vol] 19 mg/dL High 7 - 18 mg/dL AO ADM SS Urea nitrogen/Creatinine [Mass ratio] 15 ratio Normal 7 - 27 ratio AO ADM SS Uric Acid Lvl 5.7 mg/dL Normal 3.5 - 7.2 mg/dL AO ADM SS WBC (Bld) [#/Vol] 6.4 103/mcL Normal 4.6 - 10.8 10^3/mcL AO Workflow SS Final Surgical Pathology Rep mark 02-17-2024 Final Surgical Pathology Report . Pathology Reports Accession: Collected Date/Time: Received Date/Time: Pathologist: [id number] 02/12/2024 12:30 EDT 02/12/2024 13:55 EDT JAMEE BRUMFIELD MD Final Surgical Pathology Report DIAGNOSIS: A. MESENTERIC MASS, CORE BIOPSY: - DENSE COLLAGENIZED FIBROSIS, AND FOCAL FAT NECROSIS WITH INFLAMMATION Comment: The biopsy consists of markedly collagenized fibroconnective tissue with foci of fat necrosis and small lymphohistiocytic infiltrates. Immunostains for Beny keratin and calretinin are negative for carcinoma and mesothelial lesions respectively. CD45 shows a few groups of cells which are mostly composed of CD68 positive histiocytes, a few CD3 positive T cells and small numbers of CD20 positive B cells. CD117 is negative for GIST. The findings are nonspecific. There is no evidence of any specific neoplasm in these biopsies. Correlation with clinical and radiological findings recommended. Intradepartmental consultation: Dr. Castaneda, who concurs. B. MESENTERIC MASS, BIOPSY FOR FLOW CYTOMETRY: - NO DETECTABLE B- CELLS OR T- CELLS IN A SPECIMEN WITH LOW VIABILITY AND LOW CELLULARITY (NONDIAGNOSTIC) CLINICAL INFORMATION: MESENTERIC MASS Procedure: ABDOMEN BX SPECIMEN: A MESENTERIC-15 CORES B MESENTERIC-1 CORE (FLOW) GROSS DESCRIPTION: All parts labelled with patient name and [id number] A. Received in formalin, labeled abdomen are multiple friable, wispy fragments of core shaped pink-[place] tissue, in aggregate 1.2 x 0.4 x 0.1 cm.. TS-1 B. Received in RPMI media, labeled mesenteric is a friable core shaped fragment of pink-[place] tissue measuring 1.2 cm in length by 0.1 cm in diameter. This is entirely submitted for flow cytometry evaluation. Gross examination only. Roe Wright MD Performed by [facility] MICROSCOPIC DESCRIPTION: The microscopic examination is performed, except in the case of Gross Only. Electronically Signed by Pathology Report verified by [facility] JAMEE BRUMFIELD Sign out Date: 02/17/2024 15:54 Performing Lab: [facility], [address] [place] [address] Pathology Dept Disclaimer If ancillary studies were utilized, the following Laboratory Developed Test (LDT) disclaimer will apply: Pathology Reports Accession: Collected Date/Time: Received Date/Time: Pathologist: [id number] 02/12/2024 12:30 EDT 02/12/2024 13:55 EDT JAMEE BRUMFIELD MD Disclaimer Under CLIA requirements, [facility] is qualified to perform high complexity testing. For all ancillary stains, positive and negative controls stain appropriately. Performance characteristics of immunohistochemical and chromogenic in-situ hybridization tests have been determined by [facility]. These tests are used for clinical purposes, They should not be regarded as investigational or for research. Normal [facility] ([place]) .Auto Diffon 02-12-2024 Basophil, Absolute 0.0 10 3/mcL Normal 0.0-0.3 [facility] ([place]) Comment on above: Performed By: #### G , CRE #### [address] [address] Basophils/100 WBC (Bld) 0.5 % Normal 0.0-2.5 [facility] ([place]) Comment on above: Performed By: #### G FR, CRE #### [address] [address] Eosinophil, Absolute 0.2 10 3/mcL Normal 0.0-0.7 [facility] ([place]) Comment on above: Performed By: #### G FR, CRE #### [address] [address] Eosinophils/100 WBC (Bld) 2.8 % Normal 0.0-6.0 [facility] ([place]) Comment on above: Performed By: #### G FR, CRE #### [address] [address] Lymphocyte, Absolute 1.9 10 3/mcL Normal 0.9-4.3 [facility] ([place]) Comment on above: Performed By: #### G FR, CRE #### [address] [address] Lymphocytes/100 WBC (Bld) 27.8 % Normal 20.0-40.0 [facility] ([place]) Comment on above: Performed By: #### G FR, CRE #### [address] [address] Monocyte, Absolute 0.5 10 3/mcL Normal 0.1-1.4 [facility] ([place]) Comment on above: Performed By: #### G FR, CRE #### [address] [address] Monocytes/100 WBC (Bld) 6.9 % Normal 2.0-13.0 [facility] ([place]) Comment on above: Performed By: #### G FR, CRE #### [address] [address] Neutrophils/100 WBC (Bld) 62.0 % Normal 50.0-75.0 [facility] ([place]) Comment on above: Performed By: #### G FR, CRE #### [address] [address] .GFRon 02-12-2024 GFR >60 Normal [facility] ([place]) Comment on above: Result Comment: GFR Population mean for , Non- Americans Ages 20-29 = 116 mL/min/1.73 sq.m. Ages 30-39 = 107 mL/min/1.73 sq.m. Ages 40-49 = 99 mL/min/1.73 sq.m. Ages 50-59 = 93 mL/min/1.73 sq.m. Ages 60-69 = 85 mL/min/1.73 sq.m. Ages 70+ = 75 mL/min/1.73 sq.m. Chronic Kidney Disease: Less than 60 mL/min/1.73 square meters End Stage Renal Disease: Less than 15 mL/min/1.73 square meters Performed By: #### Ronna SANCHES, CRE #### [address] [address] GFR Non- 54 ml/min/1.73sqm Normal [facility] ([place]) Comment on above: Result Comment: GFR Population mean for , Non- Americans Ages 20-29 = 116 mL/min/1.73 sq.m. Ages 30-39 = 107 mL/min/1.73 sq.m. Ages 40-49 = 99 mL/min/1.73 sq.m. Ages 50-59 = 93 mL/min/1.73 sq.m. Ages 60-69 = 85 mL/min/1.73 sq.m. Ages 70+ = 75 mL/min/1.73 sq.m. Chronic Kidney Disease: Less than 60 mL/min/1.73 square meters End Stage Renal Disease: Less than 15 mL/min/1.73 square meters Performed By: #### G , CRE #### [address] [address] .NEUABSon 02-12-2024 Neutrophil, Absolute 4.2 10 3/mcL Normal 2.3-8.1 [facility] ([place]) Comment on above: Performed By: #### Ronna SANCHES, CRE #### [address] [address] CBCon 02-12-2024 Erythrocyte distribution width (RBC) [Ratio] 14.2 % Normal 11.5-15.5 [facility] ([place]) Comment on above: Performed By: #### Ronna SANCHES, CRE #### [address] [address] Hematocrit (Bld) [Volume fraction] 38.9 % Low 40.0-52.0 [facility] ([place]) Comment on above: Performed By: #### Ronna FR, CRE #### [address] [address] Hgb 13.1 G/dL Normal 13.0-17.5 [facility] ([place]) Comment on above: Performed By: #### Ronna FR, CRE #### [address] [address] MCH (RBC) [Entitic mass] 30.1 pg Normal 27.0-33.0 [facility] ([place]) Comment on above: Performed By: #### G FR, CRE #### [address] [address] MCHC 33.6 G/dL Normal 32.0-36.0 [facility] ([place]) Comment on above: Performed By: #### Ronna FR, CRE #### [address] [address] MCV (RBC) [Entitic vol] 89.7 fL Normal 81.0-100.0 [facility] ([place]) Comment on above: Performed By: #### Ronna FR, CRE #### [address] [address] Platelet 238 10 3/mcL Normal 150-450 [facility] ([place]) Comment on above: Performed By: #### Ronna FR, CRE #### [address] [address] Platelet mean volume (Bld) [Entitic vol] 7.9 fL Normal 6.4-10.5 [facility] ([place]) Comment on above: Performed By: #### Ronna FR, CRE #### [address] [address] RBC 4.33 10 6/mcL Low 4.50-6.00 [facility] ([place]) Comment on above: Performed By: #### G FR, CRE #### [address] [address] WBC 6.7 10 3/mcL Normal 4.5-10.8 [facility] ([place]) Comment on above: Performed By: #### G FR, CRE #### [address] [address] CREon 02-12-2024 Creatinine [Mass/Vol] 1.26 mg/dL Normal 0.60-1.40 [facility] ([place]) Comment on above: Performed By: #### G , CRE #### [address] [place], [place] [address] IR BIOPSY ABDOMENon 02-12-20 24 IR BIOPSY ABDOMEN ORIGINAL HISTORY: ORDERING SYSTEM PROVIDED HISTORY: Reason for Exam: Mesenteric mass and lymph node 35 min sedation time, 16 cores TECHNIQUE: This exam was performed according to our departmental dose-optimization program which includes automated exposure control, adjustment of the mA and/or kVp according to patient size and/or use of iterative reconstruction technique where applicable. PROCEDURE: 1. CT guided core biopsy, LUQ mesenteric lesion CHICKEN RAISER: Dr. Gore NARROW GAUGE BRAKEMAN: None MATERIALS: 18G core biopsy device ANESTHESIA: Moderate conscious sedation administered. Patient was monitored throughout the procedure by nurse. INTRASERVICE TIME (min): 35 SKIN ENTRY SITE: RUQ intercostal TOUCHPREP: No FINDINGS: PRE: Lobular 3.9 x 2.1 cm soft tissue lesion in the LUQ mesentery noted. While supine, bowel obstructs percutaneous access as well as RLD position. With LLD position, a small window is present via RUQ to lesion. POST: No hemorrhage noted. Some gas around the biopsy site is from thrombin and gelfoam for added hemostasis. No free air. No evidence of bowel perforation. The procedure, risks, limitations, and alternatives were discussed. All questions answered. Written informed consent obtained. Percutaneous site was sterilely prepped and draped. Time out performed. After administering local anesthesia, coaxial needle advanced to the lesion under CT guidance. The needle was advanced with blunt inner cannula just adjacent to the right colon and small bowel into the mesentery. 16 core samples obtained and submitted to pathology and/or microbiology. Gelfoam slurry injected at biopsy site. Thrombin was injected along needle tract to reduce risk of bleeding. Coolidge removed. Sterile dressing placed. COMPLICATIONS: None EBL: Minimal CONDITION: Stable, unchanged IMPRESSION: 1. Successful CT guided core biopsy. 2. Prophylactic oral antibiotics prescribed given blunt needle was advanced past bowel during biopsy. Interpreted by: Nikia Goer MD Preliminary Report By: Nikia Gore MD Electronically signed By Nikia Gore MD Dictated Date: 02/12/2024 4:41:56 PM Prelim Date: 02/12/2024 4:51:53 PM Sign Date: 02/12/2024 4:51:53 PM Ordering Provider: BRITTANY Barnes [facility] ([place]) LABORATORYOrdered By: SYSTEM SYSTEM on 02-12-2024 Basophils (Bld) [#/Vol] 0.0 103/mcL Normal 0.0 - 0.3 10^3/mcL AH Workflow SS Basophils/100 WBC (Bld) 0.5 % Normal 0.0 - 2.5 % AH Workflow SS Creatinine [Mass/Vol] 1.26 mg/dL Normal 0.60 - 1.40 mg/dL AH ADM SS Eosinophils (Bld) [#/Vol] 0.2 103/mcL Normal 0.0 - 0.7 10^3/mcL AH Workflow SS Eosinophils/100 WBC (Bld) 2.8 % Normal 0.0 - 6.0 % AH Workflow SS Erythrocyte distribution width (RBC) [Ratio] 14.2 % Normal 11.5 - 15.5 % AH Workflow SS GFR/1.73 sq M.predicted among blacks MDRD (S/P/Bld) [Vol rate/Area] ml/min/1.73sqm Invalid Interpretation Code [facility] Chemistry S Comment on above: Interpretive Data: GFR Population mean for , Non- Americans Ages 20-29 = 116 mL/min/1.73 sq.m. Ages 30-39 = 107 mL/min/1.73 sq.m. Ages 40-49 = 99 mL/min/1.73 sq.m. Ages 50-59 = 93 mL/min/1.73 sq.m. Ages 60-69 = 85 mL/min/1.73 sq.m. Ages 70+ = 75 mL/min/1.73 sq.m. Chronic Kidney Disease: Less than 60 mL/min/1.73 square meters End Stage Renal Disease: Less than 15 mL/min/1.73 square meters GFR/1.73 sq M.predicted among non-blacks MDRD (S/P/Bld) [Vol rate/Area] 54 ml/min/1.73sqm Invalid Interpretation Code [facility] Chemistry S Comment on above: Interpretive Data: GFR Population mean for , Non- Americans Ages 20-29 = 116 mL/min/1.73 sq.m. Ages 30-39 = 107 mL/min/1.73 sq.m. Ages 40-49 = 99 mL/min/1.73 sq.m. Ages 50-59 = 93 mL/min/1.73 sq.m. Ages 60-69 = 85 mL/min/1.73 sq.m. Ages 70+ = 75 mL/min/1.73 sq.m. Chronic Kidney Disease: Less than 60 mL/min/1.73 square meters End Stage Renal Disease: Less than 15 mL/min/1.73 square meters Hematocrit (Bld) [Volume fraction] 38.9 % Low 40.0 - 52.0 % AH Workflow SS Hemoglobin (Bld) [Mass/Vol] 13.1 G/dL Normal 13.0 - 17.5 G/dL AH Workflow SS Lymphocytes (Bld) [#/Vol] 1.9 103/mcL Normal 0.9 - 4.3 10^3/mcL AH Workflow SS Lymphocytes/100 WBC (Bld) 27.8 % Normal 20.0 - 40.0 % AH Workflow SS MCH (RBC) [Entitic mass] 30.1 pg Normal 27.0 - 33.0 pg AH Workflow SS MCHC 33.6 G/dL Normal 32.0 - 36.0 G/dL AH Workflow SS MCV (RBC) [Entitic vol] 89.7 fL Normal 81.0 - 100.0 fL AH Workflow SS Monocytes (Bld) [#/Vol] 0.5 103/mcL Normal 0.1 - 1.4 10^3/mcL AH Workflow SS Monocytes/100 WBC (Bld) 6.9 % Normal 2.0 - 13.0 % AH Workflow SS Neutrophils (Bld) [#/Vol] 4.2 103/mcL Normal 2.3 - 8.1 10^3/mcL AH Workflow SS Neutrophils/100 WBC (Bld) 62.0 % Normal 50.0 - 75.0 % AH Workflow SS Platelet mean volume (Bld) [Entitic vol] 7.9 fL Normal 6.4 - 10.5 fL AH Workflow SS Platelets (Bld) [#/Vol] 238 103/mcL Normal 150 - 450 10^3/mcL AH Workflow SS RBC (Bld) [#/Vol] 4.33 106/mcL Low 4.50 - 6.0 0 10^6/mcL AH Workflow SS WBC (Bld) [#/Vol] 6.7 103/mcL Normal 4.5 - 10.8 10^3/mcL Workflow SS LABORATORYOrdered By: Caryl New on 02-12-2024 PT Coag (PPP) [Time] 12.2 s Normal 9.0 - 1 4.4 seconds [facility] Comment on above: Result Comment: Spec imen slightly hemolyzed. Results may be affected. 02/12/24, 10:39 AM Interpretive Data: E ffective 02/24/08, Protime results may be affected by some antibiotics (i.e. Ciprofloxacin, Azithromycin, Bactrim) which may potentiate the action of oral anticoagulants, with further increases in Protime/INR. PT International Ratio 1.1 ratio Invalid Interpretation Code [facility] Comment on above: Result Comment: Spec imen slightly hemolyzed. Results may be affected. 02/12/24, 10:39 AM Interpretive Data: Yina louis [employer] (CHEST, 1991, 102:312S-25S) recommended therapeutic range for oral anticoagulant therapy is: LOW RISK: Prophylaxis of venous thrombosis INR: 2.0-3.0 Treatment of pulmonary embolism 2.0-3.0 Prevention of systemic embolism 2.0-3.0 HIGH RISK: Mechanical prosthetic valves 2.5-3.5 PROon 02-12-2024 INR Coag (PPP) [Relative time] 1.1 {INR} Normal [facility] ([place]) Comment on above: Result Comment: Spec imen slightly hemolyzed. Results may be affected. 02/12/24, 10:39 AM [employer] (CHEST, 1992, 102:312S-25S) recommended therapeutic range for oral anticoagulant therapy is: LOW RISK: Prophylaxis of venous thrombosis INR: 2.0-3.0 Treatment of pulmonary embolism 2.0-3.0 Prevention of systemic embolism 2.0-3.0 HIGH RISK: Mechanical prosthetic valves 2.5-3.5 Performed By: #### G , CRE #### [address] [address] PT Coag (PPP) [Time] 12.2 s Normal 9.0-14.4 [facility] ([place]) Comment on above: Result Comment: Spec imen slightly hemolyzed. Results may be affected. - [id number] - 02/12/24, 10:39 AM Effective 02/24/08, Protime results may be affected by some antibiotics (i.e. Ciprofloxacin, Azithromycin, Bactrim) which may potentiate the action of oral anticoagulants, with further increases in Protime/INR. Performed By: #### G , CRE #### [address] [address] BD BONE DENSITY DEXA AXIAL S ALBINA 01-01-2024 BD BONE DENSITY DEXA AXIAL SKELETON ORIGINAL EXAMINATION: BONE DENSITOMETRY 01/01/2024 2:50 pm TECHNIQUE: A bone density dual x-ray absorptiometry (DEXA) scan was performed of the axial (e.g. hips, spine) and/or appendicular (e.g. radius) skeleton as appropriate. COMPARISON: 05/11/2021 DEXA HISTORY: ORDERING SYSTEM PROVIDED HISTORY: Reason for Exam: Osteoporosis Screening FINDINGS: T Score Left Femoral Neck: -2.0 Left Femoral Neck: 0.657 (g/cm2) T Score Left Hip: -0.5 Left Hip: 0.960 (g/cm2) T Score Lumbar Spine: 2.9 Lumbar Spine: 1.410 (g/cmd2) BMD Change from previous Hip: 3.7% BMD Change from previous Lumbar Spine: 0.7% FRAX: 10 year fracture risk assessment Not reported because prior hip or vertebral fracture IMPRESSION: Osteopenia by WHO criteria. World Health Organization criteria: (Comparing with young normal sex matched population) - Normal: T-score at or above -1 SD (standard deviation) - Osteopenia: T-score between -1 and -2.5 SD - Osteoporosis: T-score at or below -2.5 SD The NOF recommends that FDA-approved medical therapies be considered in post-menopausal women and men age >/= 50 years with a: * Hip or vertebral fracture, or * T-score of /= 20% for major osteoporotic fractures or * >/= 3% for hip fractures All treatment decisions require clinical judgement and consideration of individual patient factors, including patient preferences, comorbidities, previous drug use, risk factors not captured in the FRAX registered model (e.g., frailty, falls, vitamin D deficiency, increased bone turnover, interval significant decline in bone density) and possible under- or over-estimation of fracture risk by FRAX. I have personally reviewed the images of this examination and agree with the resident's findings and interpretation. Interpreted by: Mick Phillips DO Preliminary Report By: Sammy Woodard Electronically signed By Mick Phillips DO Dictated Date: 01/01/2024 3:26:01 PM Prelim Date: 01/01/2024 3:45:07 PM Sign Date: 01/01/2024 3:45:07 PM Ordering Provider: SP POPE [facility] ([place]) .GFRon 12-02-2023 GFR 55 ml/min/1.73sqm [facility] ([place]) Comment on above: Result Comment: GFR Population mean for , Non- Americans Ages 20-29 = 116 mL/min/1.73 sq.m. Ages 30-39 = 107 mL/min/1.73 sq.m. Ages 40-49 = 99 mL/min/1.73 sq.m. Ages 50-59 = 93 mL/min/1.73 sq.m. Ages 60-69 = 85 mL/min/1.73 sq.m. Ages 70+ = 75 mL/min/1.73 sq.m. Chronic Kidney Disease: Less than 60 mL/min/1.73 square meters End Stage Renal Disease: Less than 15 mL/min/1.73 square meters Performed By: #### G , CRE #### [address] [address] GFR Non- 45 ml/min/1.73sqm [facility] ([place]) Comment on above: Result Comment: GFR Population mean for , Non- Americans Ages 20-29 = 116 mL/min/1.73 sq.m. Ages 30-39 = 107 mL/min/1.73 sq.m. Ages 40-49 = 99 mL/min/1.73 sq.m. Ages 50-59 = 93 mL/min/1.73 sq.m. Ages 60-69 = 85 mL/min/1.73 sq.m. Ages 70+ = 75 mL/min/1.73 sq.m. Chronic Kidney Disease: Less than 60 mL/min/1.73 square meters End Stage Renal Disease: Less than 15 mL/min/1.73 square meters Performed By: #### G FR, CRE #### [address] [place], [place] [address] CREon 12-02-2023 Creatinine [Mass/Vol] 1.47 mg/dL High 0.70-1.30 [facility] ([place]) Comment on above: Performed By: #### G FR, CRE #### [address] [place], [place] [address] CT ABDOMEN/PELVIS W/CONTRAST on 12-02-2023 CT ABDOMEN/PELVIS W/CONTRAST ORIGINAL EXAMINATION: CT OF THE ABDOMEN AND PELVIS WITH CONTRAST12/02/2023 2:24 pm TECHNIQUE: CT of the abdomen and pelvis was performed with the administration of intravenous contrast. Multiplanar reformatted images are provided for review. Automated exposure control, iterative reconstruction, and/or weight based adjustment of the mA/kV was utilized to reduce the radiation dose to as low as reasonably achievable. COMPARISON: CT abdomen pelvis 04/29/2023 HISTORY: ORDERING SYSTEM PROVIDED HISTORY: Reason for Exam: [address] scan FINDINGS: No acute osseous abnormalities. Degenerative changes of the spine and hips bilaterally. Diffuse bony demineralization. Bibasilar atelectasis. No pleural or pericardial effusion. Subcentimeter hypodense lesion in the central right hepatic lobe is too small to characterize, however appears stable and may represent a small cyst or hemangioma. The spleen, pancreas, and adrenal glands are unremarkable. The kidneys enhance symmetrically. Areas of cortical scarring in the kidneys bilaterally. Stable bilateral renal cysts. Subcentimeter hypodense lesion adjacent to the left superior pole appears stable from prior and appears to project from the kidney, favored to represent an exophytic cyst. No evidence of hydronephrosis or urolithiasis. The bladder is unremarkable. Mildly enlarged prostate. Small hiatal hernia. Small bowel colon are normal in caliber. Scattered colonic diverticulosis with no evidence of diverticulitis. The appendix is unremarkable. The vena cava and portal system are grossly unremarkable. Atherosclerotic nonaneurysmal aorta. The lobulated left mesenteric lesion appears decreased in size measuring 4.0 cm, previously 3.4 cm. Right lower quadrant lymphadenopathy appears mildly more prominent measuring up to 1.2 cm in short axis, previously 1.1 cm on my remeasurement. Prominent left omental rounded hyperdense lesions may represent diverticulosis, omental lesions, or splenules. Small fat containing umbilical hernia. Small fat containing inguinal hernias bilaterally. IMPRESSION: Enlarging left mesenteric lesion and right lower quadrant lymphadenopathy raises concern for neoplasm. If definitive tissue sampling is not pursued, continued follow-up is recommended. Diverticulosis with no evidence of diverticulitis. Additional chronic and incidental findings as above. I have personally reviewed the images of this examination and agree with the resident's findings and interpretation. Interpreted by: Sp Dewitt MD Preliminary Report By: Taqueria Gomez Electronically signed By Sp Dewitt MD Dictated Date: 12/02/2023 2:54:56 PM Prelim Date: 12/02/2023 4:48:20 PM Sign Date: 12/02/2023 4:48:20 PM Ordering Provider: RANDY CAMACHO [facility] ([place]) LABORATORYOrdered By: SYSTEM SYSTEM on 12-02-2023 Creatinine [Mass/Vol] 1.47 mg/dL High 0.70 - 1.30 mg/dL AO ADM SS GFR/1.73 sq M.predicted among blacks MDRD (S/P/Bld) [Vol rate/Area] 55 ml/min/1.73sqm Invalid Interpretation Code AO Chemistry S Comment on above: Interpretive Data: GFR Population mean for , Non- Americans Ages 20-29 = 116 mL/min/1.73 sq.m. Ages 30-39 = 107 mL/min/1.73 sq.m. Ages 40-49 = 99 mL/min/1.73 sq.m. Ages 50-59 = 93 mL/min/1.73 sq.m. Ages 60-69 = 85 mL/min/1.73 sq.m. Ages 70+ = 75 mL/min/1.73 sq.m. Chronic Kidney Disease: Less than 60 mL/min/1.73 square meters End Stage Renal Disease: Less than 15 mL/min/1.73 square meters GFR/1.73 sq M.predicted among non-blacks MDRD (S/P/Bld) [Vol rate/Area] 45 ml/min/1.73sqm Invalid Interpretation Code AO Chemistry S Comment on above: Interpretive Data: GFR Population mean for , Non- Americans Ages 20-29 = 116 mL/min/1.73 sq.m. Ages 30-39 = 107 mL/min/1.73 sq.m. Ages 40-49 = 99 mL/min/1.73 sq.m. Ages 50-59 = 93 mL/min/1.73 sq.m. Ages 60-69 = 85 mL/min/1.73 sq.m. Ages 70+ = 75 mL/min/1.73 sq.m. Chronic Kidney Disease: Less than 60 mL/min/1.73 square meters End Stage Renal Disease: Less than 15 mL/min/1.73 square meters .GFRon 10-14-2023 GFR 53 ml/min/1.73sqm Normal [facility] ([place] Comment on above: Result Comment: GFR Population mean for , Non- Americans Ages 20-29 = 116 mL/min/1.73 sq.m. Ages 30-39 = 107 mL/min/1.73 sq.m. Ages 40-49 = 99 mL/min/1.73 sq.m. Ages 50-59 = 93 mL/min/1.73 sq.m. Ages 60-69 = 85 mL/min/1.73 sq.m. Ages 70+ = 75 mL/min/1.73 sq.m. Chronic Kidney Disease: Less than 60 mL/min/1.73 square meters End Stage Renal Disease: Less than 15 mL/min/1.73 square meters Performed By: #### G , MARINA, VIRUBIA, JOSEPH ####[address] [place], [place] [address]#### PTH ####[address] [address] GFR Non- 43 ml/min/1.73sqm Normal [facility] ([place] Comment on above: Result Comment: GFR Population mean for , Non- Americans Ages 20-29 = 116 mL/min/1.73 sq.m. Ages 30-39 = 107 mL/min/1.73 sq.m. Ages 40-49 = 99 mL/min/1.73 sq.m. Ages 50-59 = 93 mL/min/1.73 sq.m. Ages 60-69 = 85 mL/min/1.73 sq.m. Ages 70+ = 75 mL/min/1.73 sq.m. Chronic Kidney Disease: Less than 60 mL/min/1.73 square meters End Stage Renal Disease: Less than 15 mL/min/1.73 square meters Performed By: #### G FR, RFP, VIDH, CAION ####[address] [place], [place] [address]#### PTH ####[place] [address] CAIONon 10-14-2023 Calcium Ionized 1.19 mmol/L Normal 1.12-1.32 [facility] ([place] Comment on above: Performed By: #### G , MARINA, AMISHA, CAILEATHA ####[id number] [place], [place] [address]#### PTH ####[place] [address] LABORATORYOrdered By: SYSTEM SYSTEM on 10-14-2023 25-hydroxyvitamin D3 [Mass/Vol] 53.7 ng/mL Invalid Interpretation Code AO ADM SS Comment on above: Interpretive Data: I nterpretive Values Based on Total 25(OH) Vitamin D: Deficient <20 ng/mL Insufficient 20 - <30 ng/mL Sufficient 30-100 ng/mL Albumin BCP dye [Mass/Vol] 3.0 G/dL Low 3.4 - 4.8 G/dL AO ADM SS Calcium [Mass/Vol] 8.4 mg/dL Normal 8.4 - 10. 2 mg/dL AO ADM SS Chloride [Moles/Vol] 105 mmol/L Normal 98 - 10 7 mmol/L AO ADM SS CO2 [Moles/Vol] 30 mmol/L Normal 23 - 31 mmol/L AO ADM SS Creatinine [Mass/Vol] 1.53 mg/dL High 0.70 - 1.30 mg/dL AO ADM SS Electrolyte Balance 6.0 mEq/L Normal 4.0 - 15 .0 mEq/L AO ADM SS GFR/1.73 sq M.predicted among blacks MDRD (S/P/Bld) [Vol rate/Area] 53 ml/min/1.73sqm Invalid Interpretation Code AO Chemistry S Comment on above: Interpretive Data: GFR Population mean for , Non- Americans Ages 20-29 = 116 mL/min/1.73 sq.m. Ages 30-39 = 107 mL/min/1.73 sq.m. Ages 40-49 = 99 mL/min/1.73 sq.m. Ages 50-59 = 93 mL/min/1.73 sq.m. Ages 60-69 = 85 mL/min/1.73 sq.m. Ages 70+ = 75 mL/min/1.73 sq.m. Chronic Kidney Disease: Less than 60 mL/min/1.73 square meters End Stage Renal Disease: Less than 15 mL/min/1.73 square meters GFR/1.73 sq M.predicted among non-blacks MDRD (S/P/Bld) [Vol rate/Area] 43 ml/min/1.73sqm Invalid Interpretation Code AO Chemistry S Comment on above: Interpretive Data: GFR Population mean for , Non- Americans Ages 20-29 = 116 mL/min/1.73 sq.m. Ages 30-39 = 107 mL/min/1.73 sq.m. Ages 40-49 = 99 mL/min/1.73 sq.m. Ages 50-59 = 93 mL/min/1.73 sq.m. Ages 60-69 = 85 mL/min/1.73 sq.m. Ages 70+ = 75 mL/min/1.73 sq.m. Chronic Kidney Disease: Less than 60 mL/min/1.73 square meters End Stage Renal Disease: Less than 15 mL/min/1.73 square meters Glucose [Mass/Vol] 97 mg/dL Normal 83 - 110 mg/dL AO ADM SS Parathyrin.intact [Mass/Vol] 91.9 pg/mL High 18.5 - 88.0 pg/mL AH ADM SS Phosphate [Mass/Vol] 2.5 mg/dL Normal 2.3 - 4 .1 mg/dL AO ADM SS Potassium [Moles/Vol] 4.5 mmol/L Normal 3.5 - 5.1 mmol/L AO ADM SS Sodium [Moles/Vol] 141 mmol/L Normal 136 - 145 mmol/L AO ADM SS Urea nitrogen [Mass/Vol] 27 mg/dL High 7 - 18 mg/dL AO ADM SS Urea nitrogen/Creatinine [Mass ratio] 18 ratio Normal 7 - 27 ratio AO ADM SS LABORATORYOrdered By: Isa Lomeli on 10-14-2023 Calcium.ionized (Bld) [Moles/Vol] 1.19 mmol/L Normal 1.12 - 1.32 mmol/L AO Blood Gas SS PTHon 10-14-2023 PTH, Intact 91.9 pg/mL High 18.5-88.0 [facility] ([place] Comment on above: Performed By: #### Ronna SANCHES, CRE #### [address] [address] RFPon 10-14-2023 Albumin Level 3.0 G/dL Low 3.4-4.8 [facility] ([place] Comment on above: Performed By: #### Ronna SANCHES, AMISHA GRAY CAION ####[place] [address]#### PTH ####[address] [address] BUN/Creatinine Ratio 18 ratio Normal 7-27 [facility] ([place] Comment on above: Performed By: #### Ronna SANCHES, RFP, AMISHA, JOSEPH ####[place] [address]#### PTH ####[address] [address] Calcium [Mass/Vol] 8.4 mg/dL Normal 8.4-10.2 [facility] ([place]) Comment on above: Performed By: #### G FR, RFP, AMISHA CAION ####[place] [address]#### PTH ####[address] [address] Chloride [Moles/Vol] 105 mmol/L Normal 98-107 [facility] ([place] Comment on above: Performed By: #### G FR, RFP, AMISHA, CAION ####[address] [place] [address]#### PTH ####[address] [address] CO2 [Moles/Vol] 30 mmol/L Normal 23-31 [facility] ([place] Comment on above: Performed By: #### G FR, RFP, VIDH, CAION ####[id number] [place] [address]#### PTH ####[address] [address] Creatinine [Mass/Vol] 1.53 mg/dL High 0.70-1.30 [facility] ([place]) Comment on above: Performed By: #### G FR, RFP, VIDH, CAION ####[id number] [place] [address]#### PTH ####[address] [address] Electrolyte Balance 6.0 mEq/L Normal 4.0-15.0 Pending [facility] to [facility] ([place] Comment on above: Performed By: #### G FR, RFP, VIDH, CAION ####[address] [place] [address]#### PTH ####[address] [address] Glucose [Mass/Vol] 97 mg/dL Normal 83-110 [facility] ([place] Comment on above: Performed By: #### G FR, RFP, VIDH, CAION ####[id number] [place] [address]#### PTH ####[address] [address] Phosphate [Mass/Vol] 2.5 mg/dL Normal 2.3-4.1 [facility] ([place] Comment on above: Performed By: #### G FR, RFP, VIDH, CAION ####[id number] [place] [address]#### PTH ####[address] [address] Potassium [Moles/Vol] 4.5 mmol/L Normal 3.5-5.1 [facility] ([place] Comment on above: Performed By: #### G FR, RFP, VIDH, CAION ####[address] [address]#### PTH ####[address] [address] Sodium [Moles/Vol] 141 mmol/L Normal 136-145 [facility] ([place] Comment on above: Performed By: #### G FR, RFP, VIDH, CAION ####[place] [address]#### PTH ####[address] [address] Urea nitrogen [Mass/Vol] 27 mg/dL High 7-18 [facility] ([place] Comment on above: Performed By: #### G FR, RFP, VIDH, CAION ####[place] [address]#### PTH ####[place] [address] VIDHon 10-14-2023 Vit. D 25-Hydroxy 53.7 ng/mL Normal [facility] ([place] Comment on above: Result Comment: Inte rpretive Values Based on Total 25(OH) Vitamin D: Deficient <20 ng/mL Insufficient 20 - <30 ng/mL Sufficient 30-100 ng/mL Performed By: #### G FR, RFP, VIDH, CAION ####[place] [address]#### PTH ####[place] [address] .Auto Diffon 10-02-2023 Basophil, Absolute 0.0 10 3/mcL Normal 0.0-0.2 [facility] ([place]) Comment on above: Performed By: #### A DIFF, ANEU, VIDH, LIPID, TSH, FT4, URIC, FERR, GFR, CMP, CBC #### [address] [address] #### PTH #### [address] [address] Basophils/100 WBC (Bld) 0.4 % Normal 0.0-2.5 [facility] ([place] Comment on above: Performed By: #### A DIFF, ANEU, VIDH, LIPID, TSH, FT4, URIC, FERR, GFR, CMP, CBC #### [address] [address] #### PTH #### [address] [address] Eosinophil, Absolute 0.2 10 3/mcL Normal 0.0-0.4 [facility] ([place] Comment on above: Performed By: #### A DIFF, ANEU, VIDH, LIPID, TSH, FT4, URIC, FERR, GFR, CMP, CBC #### [address] [address] #### PTH #### [address] [address] Eosinophils/100 WBC (Bld) 3.1 % Normal 0.0-7.0 [facility] ([place] Comment on above: Performed By: #### A DIFF, ANEU, VIDH, LIPID, TSH, FT4, URIC, FERR, GFR, CMP, CBC #### [address] [address] #### PTH #### [address] [address] Lymphocyte, Absolute 2.3 10 3/mcL Normal 0.8-3.9 [facility] ([place] Comment on above: Performed By: #### A DIFF, ANEU, VIDH, LIPID, TSH, FT4, URIC, FERR, GFR, CMP, CBC #### [address] [address] #### PTH #### [address] [address] Lymphocytes/100 WBC (Bld) 32.8 % Normal 10.0-50.0 [facility] ([place] Comment on above: Performed By: #### A DIFF, ANEU, VIDH, LIPID, TSH, FT4, URIC, FERR, GFR, CMP, CBC #### [address] [address] #### PTH #### [address] [address] Monocyte, Absolute 0.5 10 3/mcL Normal 0.2-1.0 [facility] ([place] Comment on above: Performed By: #### A DIFF, ANEU, VIDH, LIPID, TSH, FT4, URIC, FERR, GFR, CMP, CBC #### [address] [address] #### PTH #### [address] [address] Monocytes/100 WBC (Bld) 7.1 % Normal 1.7-13.0 [facility] ([place] Comment on above: Performed By: #### A DIFF, ANEU, VIDH, LIPID, TSH, FT4, URIC, FERR, GFR, CMP, CBC #### [address] [address] #### PTH #### [address] [address] Neutrophils/100 WBC (Bld) 56.6 % Normal 37.0-80.0 [facility] ([place] Comment on above: Performed By: #### A DIFF, ANEU, VIDH, LIPID, TSH, FT4, URIC, FERR, GFR, CMP, CBC #### [address] [address] #### PTH #### [address] [address] .GFRon 10-02-2023 GFR 53 ml/min/1.73sqm Normal [facility] ([place] Comment on above: Result Comment: GFR Population mean for , Non- Americans Ages 20-29 = 116 mL/min/1.73 sq.m. Ages 30-39 = 107 mL/min/1.73 sq.m. Ages 40-49 = 99 mL/min/1.73 sq.m. Ages 50-59 = 93 mL/min/1.73 sq.m. Ages 60-69 = 85 mL/min/1.73 sq.m. Ages 70+ = 75 mL/min/1.73 sq.m. Chronic Kidney Disease: Less than 60 mL/min/1.73 square meters End Stage Renal Disease: Less than 15 mL/min/1.73 square meters Performed By: #### A DIFF, ANEU, VIDH, LIPID, TSH, FT4, URIC, FERR, GFR, CMP, CBC ####[place] [address]#### PTH ####[address] [address] GFR Non- 43 ml/min/1.73sqm Normal [facility] ([place] Comment on above: Result Comment: GFR Population mean for , Non- Americans Ages 20-29 = 116 mL/min/1.73 sq.m. Ages 30-39 = 107 mL/min/1.73 sq.m. Ages 40-49 = 99 mL/min/1.73 sq.m. Ages 50-59 = 93 mL/min/1.73 sq.m. Ages 60-69 = 85 mL/min/1.73 sq.m. Ages 70+ = 75 mL/min/1.73 sq.m. Chronic Kidney Disease: Less than 60 mL/min/1.73 square meters End Stage Renal Disease: Less than 15 mL/min/1.73 square meters Performed By: #### A DIFF, ANEU, VIDH, LIPID, TSH, FT4, URIC, FERR, GFR, CMP, CBC ####[place] [address]#### PTH ####[place] [address] .NEUABSon 10-02-2023 Neutrophil, Absolute 4.0 10 3/mcL Normal 2.9-6.2 [facility] ([place] Comment on above: Performed By: #### A DIFF, ANEU, VIDH, LIPID, TSH, FT4, URIC, FERR, GFR, CMP, CBC #### [place] [address] #### PTH #### [address] [address] .Urinalysis Microscopic (AO) on 10-02-2023 UA RBC None Seen Normal None Seen [facility] ([place] Comment on above: Performed By: #### G FR, CRE #### [address] [address] UA Squam Epithelial None Seen Normal None Seen [facility] ([place] Comment on above: Performed By: #### G FR, CRE #### [address] [address] UA WBC None Seen Normal None Seen [facility] ([place] Comment on above: Performed By: #### G FR, CRE #### [place] [id number] CBCon 10-02-2023 Erythrocyte distribution width (RBC) [Ratio] 14.2 % Normal 11.5-14.5 [facility] ([place] Comment on above: Performed By: #### A DIFF, ANEU, VIDH, LIPID, TSH, FT4, URIC, FERR, GFR, CMP, CBC #### [place] [address] #### PTH #### [place] [address] Hematocrit (Bld) [Volume fraction] 37.8 % Low 42.0-52.0 [facility] ([place] Comment on above: Performed By: #### A DIFF, ANEU, VIDH, LIPID, TSH, FT4, URIC, FERR, GFR, CMP, CBC #### [place] [address] #### PTH #### [address] [address] Hgb 12.8 G/dL Low 14.0-18.0 [facility] ([place] Comment on above: Performed By: #### A DIFF, ANEU, VIDH, LIPID, TSH, FT4, URIC, FERR, GFR, CMP, CBC #### [place] [address] #### PTH #### [address] [address] MCH (RBC) [Entitic mass] 30.0 pg Normal 27.0-31.2 [facility] ([place] Comment on above: Performed By: #### A DIFF, ANEU, VIDH, LIPID, TSH, FT4, URIC, FERR, GFR, CMP, CBC #### [address] [address] #### PTH #### [place] [address] MCHC 33.7 G/dL Normal 31.8-35.4 [facility] ([place] Comment on above: Performed By: #### A DIFF, ANEU, VIDH, LIPID, TSH, FT4, URIC, FERR, GFR, CMP, CBC #### [place] [address] #### PTH #### [place] [address] MCV (RBC) [Entitic vol] 88.9 fL Normal 80.0-94.0 [facility] ([place] Comment on above: Performed By: #### A DIFF, ANEU, VIDH, LIPID, TSH, FT4, URIC, FERR, GFR, CMP, CBC #### [place] [address] #### PTH #### [place] [address] Platelet 232 10 3/mcL Normal 130-400 [facility] ([place] Comment on above: Performed By: #### A DIFF, ANEU, VIDH, LIPID, TSH, FT4, URIC, FERR, GFR, CMP, CBC #### [place] [address] #### PTH #### [place] [address] Platelet mean volume (Bld) [Entitic vol] 8.1 fL Normal 7.4-10.4 [facility] ([place] Comment on above: Performed By: #### A DIFF, ANEU, VIDH, LIPID, TSH, FT4, URIC, FERR, GFR, CMP, CBC #### [address] [address] #### PTH #### [place] [address] RBC 4.25 10 6/mcL Normal 4.04-6.13 [facility] ([place] Comment on above: Performed By: #### A DIFF, ANEU, VIDH, LIPID, TSH, FT4, URIC, FERR, GFR, CMP, CBC #### [address] [address] #### PTH #### [address] [address] WBC 7.0 10 3/mcL Normal 4.6-10.8 [facility] ([place] Comment on above: Performed By: #### A DIFF, ANEU, VIDH, LIPID, TSH, FT4, URIC, FERR, GFR, CMP, CBC #### [place] [address] #### PTH #### [address] [address] CMPon 10-02-2023 Albumin Level 3.1 G/dL Low 3.4-4.8 [facility] ([place] Comment on above: Performed By: #### A DIFF, ANEU, VIDH, LIPID, TSH, FT4, URIC, FERR, GFR, CMP, CBC ####[place] [address]#### PTH ####[address] [address] Albumin/Globulin [Mass ratio] 0.8 {ratio} Low 1.1-2.5 [facility] ([place] Comment on above: Performed By: #### A DIFF, ANEU, VIDH, LIPID, TSH, FT4, URIC, FERR, GFR, CMP, CBC ####[place] [address]#### PTH ####[address] [address] ALP [Catalytic activity/Vol] 134 U/L Normal 40-135 [facility] ([place] Comment on above: Performed By: #### A DIFF, ANEU, VIDH, LIPID, TSH, FT4, URIC, FERR, GFR, CMP, CBC ####[place] [address]#### PTH ####[address] [address] ALT [Catalytic activity/Vol] 16 U/L Normal 16-63 [facility] ([place] Comment on above: Performed By: #### A DIFF, ANEU, VIDH, LIPID, TSH, FT4, URIC, FERR, GFR, CMP, CBC ####[place] [address]#### PTH ####[place] [address] AST [Catalytic activity/Vol] 19 U/L Normal 10-40 [facility] ([place] Comment on above: Performed By: #### A DIFF, ANEU, VIDH, LIPID, TSH, FT4, URIC, FERR, GFR, CMP, CBC ####[place] [address]#### PTH ####[place] [address] Bili Total 0.3 mg/dL Normal 0.2-1.0 [facility] ([place] Comment on above: Result Comment: Use of this assay is not recommended for patients undergoing treatment with eltrombopag due to the potential for falsely elevated results. Performed By: #### A DIFF, ANEU, VIDH, LIPID, TSH, FT4, URIC, FERR, GFR, CMP, CBC ####[place] [address]#### PTH ####[place] [address] BUN/Creatinine Ratio 16 ratio Normal 7-27 [facility] ([place] Comment on above: Performed By: #### A DIFF, ANEU, VIDH, LIPID, TSH, FT4, URIC, FERR, GFR, CMP, CBC ####[place] [address]#### PTH ####[place] [address] Calcium [Mass/Vol] 8.1 mg/dL Low 8.4-10.2 [facility] ([place] Comment on above: Performed By: #### A DIFF, ANEU, VIDH, LIPID, TSH, FT4, URIC, FERR, GFR, CMP, CBC ####[place] [address]#### PTH ####[address] [address] Chloride [Moles/Vol] 106 mmol/L Normal 98-107 [facility] ([place] Comment on above: Performed By: #### A DIFF, ANEU, VIDH, LIPID, TSH, FT4, URIC, FERR, GFR, CMP, CBC ####[place] [address]#### PTH ####[place] [address] CO2 [Moles/Vol] 30 mmol/L Normal 23-31 [facility] ([place] Comment on above: Performed By: #### A DIFF, ANEU, VIDH, LIPID, TSH, FT4, URIC, FERR, GFR, CMP, CBC ####[place] [address]#### PTH ####[place] [address] Creatinine [Mass/Vol] 1.53 mg/dL High 0.70-1.30 [facility] ([place] Comment on above: Performed By: #### A DIFF, ANEU, VIDH, LIPID, TSH, FT4, URIC, FERR, GFR, CMP, CBC ####[place] [address]#### PTH ####[place] [address] Electrolyte Balance 6.0 mEq/L Normal 4.0-15.0 Pending [facility] to [facility] ([place] Comment on above: Performed By: #### A DIFF, ANEU, VIDH, LIPID, TSH, FT4, URIC, FERR, GFR, CMP, CBC ####[place] [address]#### PTH ####[place] [address] Globulin 3.8 G/dL Normal [facility] ([place] Comment on above: Performed By: #### A DIFF, ANEU, VIDH, LIPID, TSH, FT4, URIC, FERR, GFR, CMP, CBC ####[address] [address]#### PTH ####[address] [address] Glucose [Mass/Vol] 97 mg/dL Normal 83-110 [facility] ([place] Comment on above: Performed By: #### A DIFF, ANEU, VIDH, LIPID, TSH, FT4, URIC, FERR, GFR, CMP, CBC ####[place] [address]#### PTH ####[address] [address] Potassium [Moles/Vol] 4.7 mmol/L Normal 3.5-5.1 [facility] ([place] Comment on above: Performed By: #### A DIFF, ANEU, VIDH, LIPID, TSH, FT4, URIC, FERR, GFR, CMP, CBC ####[place] [address]#### PTH ####[address] [address] Sodium [Moles/Vol] 142 mmol/L Normal 136-145 [facility] ([place] Comment on above: Performed By: #### A DIFF, ANEU, VIDH, LIPID, TSH, FT4, URIC, FERR, GFR, CMP, CBC ####[place] [address]#### PTH ####[address] [address] Total Protein 6.9 G/dL Normal 6.4-8.2 [facility] ([place] Comment on above: Performed By: #### A DIFF, ANEU, VIDH, LIPID, TSH, FT4, URIC, FERR, GFR, CMP, CBC ####[place] [address]#### PTH ####[address] [address] Urea nitrogen [Mass/Vol] 24 mg/dL High 7-18 [facility] ([place] Comment on above: Performed By: #### A DIFF, ANEU, VIDH, LIPID, TSH, FT4, URIC, FERR, GFR, CMP, CBC ####[address] [address]#### PTH ####[place] [address] Minal 10-02-2023 Ferritin [Mass/Vol] 45.0 ng/mL Normal 26.0-388.0 [facility] [place] Comment on above: Performed By: #### A DIFF, ANEU, VIDH, LIPID, TSH, FT4, URIC, FERR, GFR, CMP, CBC #### [address] [address] #### PTH #### [place] [address] FT4on 10-02-2023 Free T4 [Mass/Vol] 0.96 ng/dL Normal 0.76-1.46 [facility] ([place] Comment on above: Performed By: #### A DIFF, ANEU, VIDH, LIPID, TSH, FT4, URIC, FERR, GFR, CMP, CBC #### [address] [address] #### PTH #### [place] [address] LABORATORYOrdered By: Isa Lomeli on 10-02-2023 Albumin DL <= 20 mg/L (U) [Mass/Vol] 504 mcg/dL Invalid Interpretation Code AO ADM SS Albumin/Creatinine DL <= 20 mg/L (U) [Mass ratio] 6 mcg/mg Normal 0 - 30 mcg/mg AO ADM SS Creatinine (U) [Mass/Vol] 85.0 mg/dL Normal 39.0 - 259.0 mg/dL AO ADM SS Cholesterol [Mass/Vol] 108 mg/dL Normal 0 - 200 mg/dL AO ADM SS Comment on above: Interpretive Data: C holesterol Reference Interval: Less than 200 Desirable 200-239 Borderline high risk 240 and above High risk Cholesterol in HDL [Mass/Vol] 43 mg/dL Normal 40 - 60 mg/dL AO ADM SS Cholesterol in LDL [Mass/Vol] 52 mg/dL Normal 0 - 130 mg/dL AO ADM SS Triglyceride [Mass/Vol] 65 mg/dL Normal 0 - 150 mg/dL AO ADM SS Comment on above: Interpretive Data: T riglyceride Reference Interval: Less than 150 Normal 150-199 Borderline high risk 200-499 High risk 500 or higher Very high risk LABORATORYOrdered By: Jaylon De La Paz on 10-02-2023 Appearance (U) Clear (10/02/23 7:15 AM) Normal Clear AO Auto Urine SS Bilirubin Ql (U) Negative (10/02/23 7:15 AM) Normal Negative AO Auto Urine SS Color (U) Yellow (10/02/23 7:15 AM) Normal AO Auto Urine SS Glucose Test strip (U) [Mass/Vol] Negative Normal Negative AO Auto Urine SS Hemoglobin Auto test strip (U) [Mass/Vol] Negative (10/02/23 7:15 AM) Normal Negative AO Auto Urine SS Ketones Ql (U) Negative Normal Negative AO Auto Ur ine SS UA Leuk Est Trace *ABN* (10/02/23 7:15 AM) Invalid Interpretation Code Negative AO Auto Urine SS UA Nitrite Negative (10/02/23 7:15 AM) Normal Negative AO Auto Urine SS UA pH 6.5 (10/02/23 7:15 AM) Normal 5.0 - 8.0 AO Auto Urine SS UA Protein Negative Normal Negative AO Auto Urine SS UA RBC None Seen /HPF Normal None Seen AO Auto Ur ine SS UA Spec Grav 1.020 (10/02/23 7:15 AM) Normal 1.015-1.025 AO Auto Urine SS UA Specimen Type Clean Catch (10/02/23 7:15 AM) Normal AO Auto Urine SS UA Squam Epithelial None Seen /HPF Normal None Seen A O Auto Urine SS UA Urobilinogen 0.2 E.U./dL Normal 0.2-1.0 AO Auto Urine SS WBC LM.HPF (Urine sed) [#/Area] None Seen /HPF Normal None Seen AO Auto Urine SS LABORATORYOrdered By: SYSTEM SYSTEM on 10-02-2023 25-hydroxyvitamin D3 [Mass/Vol] 64.0 ng/mL Invalid Interpretation Code AO ADM SS Comment on above: Interpretive Data: I nterpretive Values Based on Total 25(OH) Vitamin D: Deficient <20 ng/mL Insufficient 20 - <30 ng/mL Sufficient 30-100 ng/mL Albumin BCP dye [Mass/Vol] 3.1 G/dL Low 3.4 - 4.8 G/dL AO ADM SS Albumin/Globulin [Mass ratio] 0.8 {ratio} Low 1.1 - 2.5 ratio AO ADM SS ALP [Catalytic activity/Vol] 134 U/L Normal 40 - 135 U/L AO ADM SS ALT With P-5'-P [Catalytic activity/Vol] 16 U/L Normal 16 - 63 U/L AO ADM SS AST With P-5'-P [Catalytic activity/Vol] 19 U/L Normal 10 - 40 U/L AO ADM SS Basophil, Absolute 0.0 103/mcL Normal 0.0 - 0.2 10^3/mcL AO Workflow SS Basophils/100 WBC (Bld) 0.4 % Normal 0.0 - 2.5 % AO Workflow SS Bilirubin [Mass/Vol] 0.3 mg/dL Normal 0.2 - 1 .0 mg/dL AO ADM SS Comment on above: Interpretive Data: U se of this assay is not recommended for patients undergoing treatment with eltrombopag due to the potential for falsely elevated results. Calcium [Mass/Vol] 8.1 mg/dL Low 8.4 - 10. 2 mg/dL AO ADM SS Chloride [Moles/Vol] 106 mmol/L Normal 98 - 10 7 mmol/L AO ADM SS CO2 [Moles/Vol] 30 mmol/L Normal 23 - 31 mmol/L AO ADM SS Creatinine [Mass/Vol] 1.53 mg/dL High 0.70 - 1.30 mg/dL AO ADM SS Electrolyte Balance 6.0 mEq/L Normal 4.0 - 15 .0 mEq/L AO ADM SS Eosinophil, Absolute 0.2 103/mcL Normal 0.0 - 0 .4 10^3/mcL AO Workflow SS Eosinophils/100 WBC (Bld) 3.1 % Normal 0.0 - 7.0 % AO Workflow SS Erythrocyte distribution width (RBC) [Ratio] 14.2 % Normal 11.5 - 14.5 % AO Workflow SS Ferritin [Mass/Vol] 45.0 ng/mL Normal 26.0 - 3 88.0 ng/mL AO ADM SS Free T4 [Mass/Vol] 0.96 ng/dL Normal 0.76 - 1. 46 ng/dL AO ADM SS GFR/1.73 sq M.predicted among blacks MDRD (S/P/Bld) [Vol rate/Area] 53 ml/min/1.73sqm Invalid Interpretation Code AO Chemistry S Comment on above: Interpretive Data: GFR Population mean for , Non- Americans Ages 20-29 = 116 mL/min/1.73 sq.m. Ages 30-39 = 107 mL/min/1.73 sq.m. Ages 40-49 = 99 mL/min/1.73 sq.m. Ages 50-59 = 93 mL/min/1.73 sq.m. Ages 60-69 = 85 mL/min/1.73 sq.m. Ages 70+ = 75 mL/min/1.73 sq.m. Chronic Kidney Disease: Less than 60 mL/min/1.73 square meters End Stage Renal Disease: Less than 15 mL/min/1.73 square meters GFR/1.73 sq M.predicted among non-blacks MDRD (S/P/Bld) [Vol rate/Area] 43 ml/min/1.73sqm Invalid Interpretation Code AO Chemistry S Comment on above: Interpretive Data: GFR Population mean for , Non- Americans Ages 20-29 = 116 mL/min/1.73 sq.m. Ages 30-39 = 107 mL/min/1.73 sq.m. Ages 40-49 = 99 mL/min/1.73 sq.m. Ages 50-59 = 93 mL/min/1.73 sq.m. Ages 60-69 = 85 mL/min/1.73 sq.m. Ages 70+ = 75 mL/min/1.73 sq.m. Chronic Kidney Disease: Less than 60 mL/min/1.73 square meters End Stage Renal Disease: Less than 15 mL/min/1.73 square meters Globulin 3.8 G/dL Invalid Interpretation Code AO ADM SS Glucose [Mass/Vol] 97 mg/dL Normal 83 - 110 mg/dL AO ADM SS Hematocrit (Bld) [Volume fraction] 37.8 % Low 42.0 - 52.0 % AO Workflow SS Hemoglobin (Bld) [Mass/Vol] 12.8 G/dL Low 14.0 - 18.0 G/dL AO Workflow SS Lymphocyte, Absolute 2.3 103/mcL Normal 0.8 - 3 .9 10^3/mcL AO Workflow SS Lymphocytes/100 WBC (Bld) 32.8 % Normal 10.0 - 50.0 % AO Workflow SS MCH (RBC) [Entitic mass] 30.0 pg Normal 27.0 - 31.2 pg AO Workflow SS MCHC 33.7 G/dL Normal 31.8 - 35.4 G/dL AO Workflow SS MCV (RBC) [Entitic vol] 88.9 fL Normal 80.0 - 94.0 fL AO Workflow SS Monocyte, Absolute 0.5 103/mcL Normal 0.2 - 1.0 10^3/mcL AO Workflow SS Monocytes/100 WBC (Bld) 7.1 % Normal 1.7 - 13.0 % AO Workflow SS Neutrophil, Absolute 4.0 103/mcL Normal 2.9 - 6 .2 10^3/mcL AO Workflow SS Neutrophils/100 WBC (Bld) 56.6 % Normal 37.0 - 80.0 % AO Workflow SS Parathyrin.intact [Mass/Vol] 133.1 pg/mL High 18.5 - 88.0 pg/mL AH ADM SS Platelet mean volume (Bld) [Entitic vol] 8.1 fL Normal 7.4 - 10.4 fL AO Workflow SS Platelets (Bld) [#/Vol] 232 103/mcL Normal 130 - 400 10^3/mcL AO Workflow SS Potassium [Moles/Vol] 4.7 mmol/L Normal 3.5 - 5.1 mmol/L AO ADM SS Protein [Mass/Vol] 6.9 G/dL Normal 6.4 - 8.2 G/dL AO ADM SS RBC (Bld) [#/Vol] 4.25 106/mcL Normal 4.04 - 6.1 3 10^6/mcL AO Workflow SS Sodium [Moles/Vol] 142 mmol/L Normal 136 - 145 mmol/L AO ADM SS TSH Qn 1.65 m[IU]/L Normal 0.36 - 3.74 mcIU/mL AO ADM SS Urea nitrogen [Mass/Vol] 24 mg/dL High 7 - 18 mg/dL AO ADM SS Urea nitrogen/Creatinine [Mass ratio] 16 ratio Normal 7 - 27 ratio AO ADM SS Uric Acid Lvl 5.8 mg/dL Normal 3.5 - 7.2 mg/dL AO ADM SS WBC (Bld) [#/Vol] 7.0 103/mcL Normal 4.6 - 10.8 10^3/mcL AO Workflow SS LIPIDon 10-02-2023 Cholesterol [Mass/Vol] 108 mg/dL Normal 0-200 [facility] ([place]) Comment on above: Result Comment: Chol esterol Reference Interval: Less than 200 Desirable 200-239 Borderline high risk 240 and above High risk Performed By: #### A DIFF, ANEU, VIDH, LIPID, TSH, FT4, URIC, FERR, GFR, CMP, CBC ####[place] [address]#### PTH ####[address] [address] Cholesterol in HDL [Mass/Vol] 43 mg/dL Normal 40-60 [facility] ([place]) Comment on above: Performed By: #### A DIFF, ANEU, VIDH, LIPID, TSH, FT4, URIC, FERR, GFR, CMP, CBC ####[place] [address]#### PTH ####[address] [address] Cholesterol in LDL [Mass/Vol] 52 mg/dL Normal 0-130 [facility] ([place] Comment on above: Performed By: #### A DIFF, ANEU, VIDH, LIPID, TSH, FT4, URIC, FERR, GFR, CMP, CBC ####[place] [address]#### PTH ####[address] [address] Triglyceride [Mass/Vol] 65 mg/dL Normal 0-150 [facility] ([place]) Comment on above: Result Comment: Trig lyceride Reference Interval: Less than 150 Normal 150-199 Borderline high risk 200-499 High risk 500 or higher Very high risk Performed By: #### A DIFF, ANEU, VIDH, LIPID, TSH, FT4, URIC, FERR, GFR, CMP, CBC ####[place] [address]#### PTH ####[place] [id number] [place] [address] MALBRon 10-02-2023 U Creatinine 85.0 mg/dL Normal 39.0-259.0 [facility] ([place] Comment on above: Performed By: #### G FR, CRE #### [address] [address] U Microalb 504 mcg/dL Normal [facility] ([place] Comment on above: Performed By: #### G FR, CRE #### [address] [address] U Ratio Alb/Cre 6 mcg/mg Normal 0-30 [facility] ([place] Comment on above: Performed By: #### G FR, CRE #### [address] [address] PTHon 10-02-2023 PTH, Intact 133.1 pg/mL High 18.5-88.0 [facility] ([place] Comment on above: Performed By: #### A DIFF, ANEU, VIDH, LIPID, TSH, FT4, URIC, FERR, GFR, CMP, CBC ####[address] [address]#### PTH ####[place] [address] TSHon 10-02-2023 TSH Qn 1.65 m[IU]/L Normal 0.36-3.74 [facility] ([place] Comment on above: Performed By: #### A DIFF, ANEU, VIDH, LIPID, TSH, FT4, URIC, FERR, GFR, CMP, CBC #### [address] [address] #### PTH #### [place] [address] UAon 10-02-2023 Color (U) Yellow Normal [facility] ([place] Comment on above: Order Comment: Run loren wolf, has symptoms Performed By: #### G FR, CRE #### [address] [address] Glucose (U) [Mass/Vol] Negative Normal Negative [facility] ([place]) Comment on above: Order Comment: Vikas wolf, has symptoms Performed By: #### G FR, CRE #### [address] [address] Ketones Ql (U) Negative Normal Negative [facility] ([place]) Comment on above: Order Comment: Vikas wolf, has symptoms Performed By: #### G FR, CRE #### [address] [address] UA Appear Clear Normal Clear [facility] ([place]) Comment on above: Order Comment: Vikas wofl, has symptoms Performed By: #### G FR, CRE #### [address] [address] UA Blood Negative Normal Negative [facility] ([place]) Comment on above: Order Comment: Vikas wolf has symptoms Performed By: #### G FR, CRE #### [address] [address] UA Leuk Est Trace Abnormal Negative [facility] ([place]) Comment on above: Order Comment: Vikas wolf has symptoms Performed By: #### G FR, CRE #### [address] [address] UA Nitrite Negative Normal Negative [facility] ([place]) Comment on above: Order Comment: Vikas wolf has symptoms Performed By: #### G FR, CRE #### [address] [address] UA pH 6.5 Normal 5.0 - 8.0 [facility] ([place]) Comment on above: Order Comment: Vikas wolf has symptoms Performed By: #### G FR, CRE #### [address] [address] UA Protein Negative Normal Negative [facility] ([place]) Comment on above: Order Comment: Vikas wolf has symptoms Performed By: #### G FR, CRE #### [address] [address] UA Spec Grav 1.020 Normal 1.015-1.025 [facility] ([place] Comment on above: Order Comment: Vikas wolf has symptoms Performed By: #### G FR, CRE #### [place] [id number] UA Specimen Type Clean Catch Normal [facility] ([place] Comment on above: Order Comment: Vikas wolf has symptoms Performed By: #### G FR, CRE #### [place] [id number] UA Urobilinogen 0.2 E.U./dL Normal 0.2-1.0 [facility] ([place] Comment on above: Order Comment: Vikas wolf has symptoms Performed By: #### G FR, CRE #### [place] [address]407 Urobilinogen (U) [Mass/Vol] Negative Normal Negative [facility] ([place] Comment on above: Order Comment: Vikas wolf has symptoms Performed By: #### G FR, CRE #### [place] [address] URICon 10-02-2023 Uric Acid Lvl 5.8 mg/dL Normal 3.5-7.2 [facility] ([place] Comment on above: Performed By: #### A DIFF, ANEU, VIDH, LIPID, TSH, FT4, URIC, FERR, GFR, CMP, CBC ####[place] [address]#### PTH ####[place] [address] VIDHon 10-02-2023 Vit. D 25-Hydroxy 64.0 ng/mL Normal [facility] ([place] Comment on above: Result Comment: Inte rpretive Values Based on Total 25(OH) Vitamin D: Deficient <20 ng/mL Insufficient 20 - <30 ng/mL Sufficient 30-100 ng/mL Performed By: #### A DIFF, ANEU, VIDH, LIPID, TSH, FT4, URIC, FERR, GFR, CMP, CBC ####[place] [address]#### PTH ####[facility] [place] [address] ABDOMEN/PELVIS W/CONTRAST on 04-29-2023 CT ABDOMEN/PELVIS W/CONTRAST ORIGINAL LOWER EXAMINATION: CT OF THE ABDOMEN AND PELVIS WITH CONTRAST04/29/2023 3:11 pm TECHNIQUE: CT of the abdomen and pelvis was performed with the administration of intravenous contrast. Multiplanar reformatted images are provided for review. Automated exposure control, iterative reconstruction, and/or weight based adjustment of the mA/kV was utilized to reduce the radiation dose to as low as reasonably achievable. COMPARISON: 10/17/2022 HISTORY: ORDERING SYSTEM PROVIDED HISTORY: Reason for Exam: abd pain/6 month followup exam F/U abnormal CT scan. Pt reports no current complaints. FINDINGS: Provided images of the lower thorax are unremarkable. No acute or suspicious bony abnormality. Moderate to marked degenerative spine. Small sliding hiatal hernia. Possible contracted or dystrophic gallbladder with cholelithiasis. No unusual enhancement of the liver now seen. Tiny right-sided liver cyst. There is no intra or extrahepatic biliary duct dilation. No focal mass identified. The pancreas, spleen, and adrenal glands are unremarkable. Cholecystectomy clips. The kidneys enhance symmetrically without evidence of hydronephrosis or mass. Scattered renal cysts. The ureters are normal course and caliber. There is no evidence of urolithiasis. The urinary bladder is well-distended without wall thickening or focal mass. The prostate is within normal limits. The visualized aorta is nonaneurysmal. Scattered diverticulosis without diverticulitis. No pathologically enlarged retroperitoneal, mesenteric, or pelvic lymph nodes are identified. There is no free intraperitoneal air or fluid. Prominent right upper quadrant mesenteric lymph nodes the largest of which measures 2.2 cm. Lobulated mesenteric lesion measures 3.4 cm previously was measured near 4 cm. Bilateral fat containing inguinal hernias. IMPRESSION: Prominent right lower quadrant mesenteric lymph nodes the largest of which measures 2.2 cm. Difficult to exclude lymphoproliferative disorder. 2. Lobulated mesenteric lesion appears stable to slightly smaller and now measures 3.4 cm. Recommend continued follow-up and monitoring. 3. No other adenopathy observed. I have personally reviewed the images of this examination and agree with the resident's findings and interpretation. Interpreted by: Sp Dewitt MD Preliminary Report By: Sammy Woodard Electronically signed By Sp Dewitt MD Dictated Date: 04/29/2023 3:24:10 PM Prelim Date: 04/29/2023 4:46:04 PM Sign Date: 04/29/2023 4:46:04 PM Ordering Provider: RANDY Barnes [facility] ([place] .Auto Diffon 04-09-2023 Basophil, Absolute 0.0 10 3/mcL Normal 0.0-0.2 [facility] ([place]) Comment on above: Performed By: #### Ronna SANCHES, CRE #### [address] [address] Basophils/100 WBC (Bld) 0.4 % Normal 0.0-2.5 [facility] ([place]) Comment on above: Performed By: #### Ronna SANCHES, CRE #### [address] [address] Eosinophil, Absolute 0.3 10 3/mcL Normal 0.0-0.4 [facility] ([place]) Comment on above: Performed By: #### Ronna SANCHES, CRE #### [address] [address] Eosinophils/100 WBC (Bld) 4.4 % Normal 0.0-7.0 [facility] ([place]) Comment on above: Performed By: #### Ronna SANCHES, CRE #### [address] [address] Lymphocyte, Absolute 2.2 10 3/mcL Normal 0.8-3.9 [facility] ([place]) Comment on above: Performed By: #### Ronna SANCHES, CRE #### [address] [address] Lymphocytes/100 WBC (Bld) 33.1 % Normal 10.0-50.0 [facility] ([place] Comment on above: Performed By: #### Ronna FR, CRE #### [address] [address] Monocyte, Absolute 0.5 10 3/mcL Normal 0.2-1.0 [facility] ([place] Comment on above: Performed By: #### Ronna SANCHES, CRE #### [address] [place] [address] Monocytes/100 WBC (Bld) 7.1 % Normal 1.7-13.0 [facility] ([place] Comment on above: Performed By: #### Ronna FR, CRE #### [place] [address] [address] Neutrophils/100 WBC (Bld) 55.0 % Normal 37.0-80.0 [facility] ([place] Comment on above: Performed By: #### Ronna SANCHES, CRE #### [place] [address] [address] .GFRon 04-09-2023 GFR 60 ml/min/1.73sqm Normal [facility] ([place]) Comment on above: Result Comment: GFR Population mean for , Non- Americans Ages 20-29 = 116 mL/min/1.73 sq.m. Ages 30-39 = 107 mL/min/1.73 sq.m. Ages 40-49 = 99 mL/min/1.73 sq.m. Ages 50-59 = 93 mL/min/1.73 sq.m. Ages 60-69 = 85 mL/min/1.73 sq.m. Ages 70+ = 75 mL/min/1.73 sq.m. Chronic Kidney Disease: Less than 60 mL/min/1.73 square meters End Stage Renal Disease: Less than 15 mL/min/1.73 square meters Performed By: #### G FR, CRE #### [address] [address] GFR Non- 50 ml/min/1.73sqm Normal [facility] ([place] Comment on above: Result Comment: GFR Population mean for , Non- Americans Ages 20-29 = 116 mL/min/1.73 sq.m. Ages 30-39 = 107 mL/min/1.73 sq.m. Ages 40-49 = 99 mL/min/1.73 sq.m. Ages 50-59 = 93 mL/min/1.73 sq.m. Ages 60-69 = 85 mL/min/1.73 sq.m. Ages 70+ = 75 mL/min/1.73 sq.m. Chronic Kidney Disease: Less than 60 mL/min/1.73 square meters End Stage Renal Disease: Less than 15 mL/min/1.73 square meters Performed By: #### Ronna SANCHES, CRE #### [address] [address] .NEUABSon 04-09-2023 Neutrophil, Absolute 3.7 10 3/mcL Normal 2.9-6.2 [facility] ([place]) Comment on above: Performed By: #### Ronna SANCHES, CRE #### [address] [address] A1Con 04-09-2023 HbA1c (Bld) [Mass fraction] 5.7 % Normal 4.3-6.4 [facility] ([place] Comment on above: Performed By: #### Ronna SANCHES, CRE #### [address] [address] CBCon 04-09-2023 Erythrocyte distribution width (RBC) [Ratio] 14.2 % Normal 11.5-14.5 [facility] ([place] Comment on above: Performed By: #### Ronna SANCHES, CRE #### [address] [address] Hematocrit (Bld) [Volume fraction] 37.8 % Low 42.0-52.0 [facility] ([place] Comment on above: Performed By: #### Ronna SANCHES, CRE #### [address] [address] Hgb 12.4 G/dL Low 14.0-18.0 [facility] ([place] Comment on above: Performed By: #### Ronna FR, CRE #### [address] [address] MCH (RBC) [Entitic mass] 29.2 pg Normal 27.0-31.2 [facility] ([place] Comment on above: Performed By: #### Ronna FR, CRE #### [address] [address] MCHC 32.8 G/dL Normal 31.8-35.4 [facility] ([place] Comment on above: Performed By: #### Ronna SANCHES, CRE #### [address] [address] MCV (RBC) [Entitic vol] 89.0 fL Normal 80.0-94.0 [facility] ([place] Comment on above: Performed By: #### Ronna FR, CRE #### [place] [address] [address] Platelet 233 10 3/mcL Normal 130-400 [facility] ([place] Comment on above: Performed By: #### Ronna SANCHES, CRE #### [place] [address] [address] Platelet mean volume (Bld) [Entitic vol] 8.3 fL Normal 7.4-10.4 [facility] ([place] Comment on above: Performed By: #### Ronna SANCHES, CRE #### [address] [address] RBC 4.25 10 6/mcL Normal 4.04-6.13 [facility] ([place] Comment on above: Performed By: #### Ronna SANCHES, CRE #### [address] [address] WBC 6.7 10 3/mcL Normal 4.6-10.8 [facility] ([place] Comment on above: Performed By: #### Ronna SANCHES, CRE #### [address] [address] CMPon 04-09-2023 Albumin Level 3.2 G/dL Low 3.4-4.8 [facility] ([place] Comment on above: Performed By: #### Ronna SANCHES, CRE #### [address] [address] Albumin/Globulin [Mass ratio] 0.9 {ratio} Low 1.1-2.5 [facility] ([place] Comment on above: Performed By: #### Ronna FR, CRE #### [place] [address] [address] ALP [Catalytic activity/Vol] 124 U/L Normal 40-135 [facility] ([place] Comment on above: Performed By: #### G FR, CRE #### [address] [address] ALT [Catalytic activity/Vol] 17 U/L Normal 16-63 [facility] ([place] Comment on above: Performed By: #### G FR, CRE #### [address] [address] AST [Catalytic activity/Vol] 18 U/L Normal 10-40 [facility] ([place] Comment on above: Performed By: #### G FR, CRE #### [address] [address] Bili Total 0.3 mg/dL Normal 0.2-1.0 [facility] ([place] Comment on above: Result Comment: Use of this assay is not recommended for patients undergoing treatment with eltrombopag due to the potential for falsely elevated results. Performed By: #### Ronna FR, CRE #### [address] [address] BUN/Creatinine Ratio 19 ratio Normal 7-27 [facility] ([place] Comment on above: Performed By: #### Ronna FR, CRE #### [address] [address] Calcium [Mass/Vol] 8.5 mg/dL Normal 8.4-10.2 [facility] ([place]) Comment on above: Performed By: #### Ronna FR, CRE #### [address] [address] Chloride [Moles/Vol] 104 mmol/L Normal 98-107 [facility] ([place] Comment on above: Performed By: #### G FR, CRE #### [address] [address] CO2 [Moles/Vol] 31 mmol/L Normal 23-31 [facility] ([place] Comment on above: Performed By: #### G FR, CRE #### [address] [address] Creatinine [Mass/Vol] 1.36 mg/dL High 0.70-1.30 [facility] ([place]) Comment on above: Performed By: #### G FR, CRE #### [address] [address] Electrolyte Balance 7.0 mEq/L Normal 4.0-15.0 Pending [facility] to [facility] ([place] Comment on above: Performed By: #### G FR, CRE #### [place] [address] [address] Globulin 3.7 G/dL Normal [facility] ([place]) Comment on above: Performed By: #### G , CRE #### [place] [address] [address] Glucose [Mass/Vol] 95 mg/dL Normal 83-110 [facility] ([place] Comment on above: Performed By: #### Ronna SANCHES, CRE #### [address] [address] Potassium [Moles/Vol] 4.5 mmol/L Normal 3.5-5.1 [facility] ([place]) Comment on above: Performed By: #### Ronna FR, CRE #### [address] [address] Sodium [Moles/Vol] 142 mmol/L Normal 136-145 [facility] ([place] Comment on above: Performed By: #### Ronna SANCHES, CRE #### [address] [address] Total Protein 6.9 G/dL Normal 6.4-8.2 [facility] ([place] Comment on above: Performed By: #### G FR, CRE #### [place] [address] [address] Urea nitrogen [Mass/Vol] 26 mg/dL High 7-18 [facility] ([place] Comment on above: Performed By: #### G FR, CRE #### [place] [address] [address] FT4on 04-09-2023 Free T4 [Mass/Vol] 0.97 ng/dL Normal 0.76-1.46 [facility] ([place]) Comment on above: Performed By: #### G FR, CRE #### [place] [address] LABORATORYOrdered By: SYSTEM SYSTEM on 04-09-2023 25-hydroxyvitamin D3 [Mass/Vol] 72.5 ng/mL Invalid Interpretation Code AO ADM SS Comment on above: Interpretive Data: I nterpretive Values Based on Total 25(OH) Vitamin D: Deficient <20 ng/mL Insufficient 20 - <30 ng/mL Sufficient 30-100 ng/mL Albumin BCP dye [Mass/Vol] 3.2 G/dL Invalid Interpretation Code 3.4 - 4.8 G/dL AO ADM SS Albumin/Globulin [Mass ratio] 0.9 {ratio} Invalid Interpretation Code 1.1 - 2.5 ratio AO ADM SS ALP [Catalytic activity/Vol] 124 U/L Invalid Interpretation Code 40 - 135 U/L AO ADM SS ALT With P-5'-P [Catalytic activity/Vol] 17 U/L Invalid Interpretation Code 16 - 63 U/L AO ADM SS AST With P-5'-P [Catalytic activity/Vol] 18 U/L Invalid Interpretation Code 10 - 40 U/L AO ADM SS Basophil, Absolute 0.0 103/mcL Invalid Interpretation Code 0.0 - 0.2 10^3/mcL AO Workflow SS Basophils/100 WBC (Bld) 0.4 % Invalid Interpretation Code 0.0 - 2.5 % AO Workflow SS Bilirubin [Mass/Vol] 0.3 mg/dL Invalid Interpretation Code 0.2 - 1.0 mg/dL AO ADM SS Comment on above: Interpretive Data: U se of this assay is not recommended for patients undergoing treatment with eltrombopag due to the potential for falsely elevated results. Calcium [Mass/Vol] 8.5 mg/dL Invalid Interpretation Code 8.4 - 10.2 mg/dL AO ADM SS Chloride [Moles/Vol] 104 mmol/L Invalid Interpretation Code 98 - 107 mmol/L AO ADM SS CO2 [Moles/Vol] 31 mmol/L Invalid Interpretation Code 23 - 31 mmol/L AO ADM SS Creatinine [Mass/Vol] 1.36 mg/dL Invalid Interpretation Code 0.70 - 1.30 mg/dL AO ADM SS Electrolyte Balance 7.0 mEq/L Invalid Interpretation Code 4.0 - 15.0 mEq/L AO ADM SS Eosinophil, Absolute 0.3 103/mcL Invalid Interpretation Code 0.0 - 0.4 10^3/mcL AO Workflow SS Eosinophils/100 WBC (Bld) 4.4 % Invalid Interpretation Code 0.0 - 7.0 % AO Workflow SS Erythrocyte distribution width (RBC) [Ratio] 14.2 % Invalid Interpretation Code 11.5 - 14.5 % AO Workflow SS Free T4 [Mass/Vol] 0.97 ng/dL Invalid Interpretation Code 0.76 - 1.46 ng/dL AO ADM SS GFR/1.73 sq M.predicted among blacks MDRD (S/P/Bld) [Vol rate/Area] 60 ml/min/1.73sqm Invalid Interpretation Code AO Chemistry S Comment on above: Interpretive Data: GFR Population mean for , Non- Americans Ages 20-29 = 116 mL/min/1.73 sq.m. Ages 30-39 = 107 mL/min/1.73 sq.m. Ages 40-49 = 99 mL/min/1.73 sq.m. Ages 50-59 = 93 mL/min/1.73 sq.m. Ages 60-69 = 85 mL/min/1.73 sq.m. Ages 70+ = 75 mL/min/1.73 sq.m. Chronic Kidney Disease: Less than 60 mL/min/1.73 square meters End Stage Renal Disease: Less than 15 mL/min/1.73 square meters GFR/1.73 sq M.predicted among non-blacks MDRD (S/P/Bld) [Vol rate/Area] 50 ml/min/1.73sqm Invalid Interpretation Code AO Chemistry S Comment on above: Interpretive Data: GFR Population mean for , Non- Americans Ages 20-29 = 116 mL/min/1.73 sq.m. Ages 30-39 = 107 mL/min/1.73 sq.m. Ages 40-49 = 99 mL/min/1.73 sq.m. Ages 50-59 = 93 mL/min/1.73 sq.m. Ages 60-69 = 85 mL/min/1.73 sq.m. Ages 70+ = 75 mL/min/1.73 sq.m. Chronic Kidney Disease: Less than 60 mL/min/1.73 square meters End Stage Renal Disease: Less than 15 mL/min/1.73 square meters Globulin 3.7 G/dL Invalid Interpretation Code AO ADM SS Glucose [Mass/Vol] 95 mg/dL Invalid Interpretation Code 83 - 110 mg/dL AO ADM SS HbA1c (Bld) [Mass fraction] 5.7 % Invalid Interpretation Code 4.3 - 6.4 % AO ADM SS Hematocrit (Bld) [Volume fraction] 37.8 % Invalid Interpretation Code 42.0 - 52.0 % AO Workflow SS Hemoglobin (Bld) [Mass/Vol] 12.4 G/dL Invalid Interpretation Code 14.0 - 18.0 G/dL AO Workflow SS Lymphocyte, Absolute 2.2 103/mcL Invalid Interpretation Code 0.8 - 3.9 10^3/mcL AO Workflow SS Lymphocytes/100 WBC (Bld) 33.1 % Invalid Interpretation Code 10.0 - 50.0 % AO Workflow SS MCH (RBC) [Entitic mass] 29.2 pg Invalid Interpretation Code 27.0 - 31.2 pg AO Workflow SS MCHC 32.8 G/dL Invalid Interpretation Code 31.8 - 35.4 G/dL AO Workflow SS MCV (RBC) [Entitic vol] 89.0 fL Invalid Interpretation Code 80.0 - 94.0 fL AO Workflow SS Monocyte, Absolute 0.5 103/mcL Invalid Interpretation Code 0.2 - 1.0 10^3/mcL AO Workflow SS Monocytes/100 WBC (Bld) 7.1 % Invalid Interpretation Code 1.7 - 13.0 % AO Workflow SS Neutrophil, Absolute 3.7 103/mcL Invalid Interpretation Code 2.9 - 6.2 10^3/mcL AO Workflow SS Neutrophils/100 WBC (Bld) 55.0 % Invalid Interpretation Code 37.0 - 80.0 % AO Workflow SS Parathyrin.intact [Mass/Vol] 79.7 pg/mL Invalid Interpretation Code 18.5 - 88.0 pg/mL AH ADM SS Platelet mean volume (Bld) [Entitic vol] 8.3 fL Invalid Interpretation Code 7.4 - 10.4 fL AO Workflow SS Platelets (Bld) [#/Vol] 233 103/mcL Invalid Interpretation Code 130 - 400 10^3/mcL AO Workflow SS Potassium [Moles/Vol] 4.5 mmol/L Invalid Interpretation Code 3.5 - 5.1 mmol/L AO ADM SS Protein [Mass/Vol] 6.9 G/dL Invalid Interpretation Code 6.4 - 8.2 G/dL AO ADM SS RBC (Bld) [#/Vol] 4.25 106/mcL Invalid Interpretation Code 4.04 - 6.13 10^6/mcL AO Workflow SS Sodium [Moles/Vol] 142 mmol/L Invalid Interpretation Code 136 - 145 mmol/L AO ADM SS TSH Qn 1.26 m[IU]/L Invalid Interpretation Code 0.36 - 3.74 mcIU/mL AO ADM SS Urea nitrogen [Mass/Vol] 26 mg/dL Invalid Interpretation Code 7 - 18 mg/dL AO ADM SS Urea nitrogen/Creatinine [Mass ratio] 19 ratio Invalid Interpretation Code 7 - 27 ratio AO ADM SS Uric Acid Lvl 6.0 mg/dL Invalid Interpretation Code 3.5 - 7.2 mg/dL AO ADM SS WBC (Bld) [#/Vol] 6.7 103/mcL Invalid Interpretation Code 4.6 - 10.8 10^3/mcL AO Workflow SS LABORATORYOrdered By: Petros Chavira on 04-09-2023 Cholesterol [Mass/Vol] 96 mg/dL Invalid Interpretation Code 0 - 200 mg/dL AO ADM SS Comment on above: Interpretive Data: C holesterol Reference Interval: Less than 200 Desirable 200-239 Borderline high risk 240 and above High risk Cholesterol in HDL [Mass/Vol] 40 mg/dL Invalid Interpretation Code 40 - 60 mg/dL AO ADM SS Cholesterol in LDL [Mass/Vol] 40 mg/dL Invalid Interpretation Code 0 - 130 mg/dL AO ADM SS Triglyceride [Mass/Vol] 79 mg/dL Invalid Interpretation Code 0 - 150 mg/dL AO ADM SS Comment on above: Interpretive Data: T riglyceride Reference Interval: Less than 150 Normal 150-199 Borderline high risk 200-499 High risk 500 or higher Very high risk LIPIDon 04-09-2023 Cholesterol [Mass/Vol] 96 mg/dL Normal 0-200 [facility] ([place]) Comment on above: Result Comment: Chol esterol Reference Interval: Less than 200 Desirable 200-239 Borderline high risk 240 and above High risk Performed By: #### A DIFF, ANEU, VIDH, LIPID, TSH, FT4, URIC, FERR, GFR, CMP, CBC #### [address] [address] #### PTH #### [address] [address] Cholesterol in HDL [Mass/Vol] 40 mg/dL Normal 40-60 [facility] ([place]) Comment on above: Performed By: #### A DIFF, ANEU, VIDH, LIPID, TSH, FT4, URIC, FERR, GFR, CMP, CBC #### [address] [address] #### PTH #### [place] [address] Cholesterol in LDL [Mass/Vol] 40 mg/dL Normal 0-130 [facility] ([place]) Comment on above: Performed By: #### A DIFF, ANEU, VIDH, LIPID, TSH, FT4, URIC, FERR, GFR, CMP, CBC #### [place] [address] #### PTH #### [place] [address] Triglyceride [Mass/Vol] 79 mg/dL Normal 0-150 [facility] ([place]) Comment on above: Result Comment: Trig lyceride Reference Interval: Less than 150 Normal 150-199 Borderline high risk 200-499 High risk 500 or higher Very high risk Performed By: #### A DIFF, ANEU, VIDH, LIPID, TSH, FT4, URIC, FERR, GFR, CMP, CBC #### [place] [address] #### PTH #### [place] [address] PTHon 04-09-2023 PTH, Intact 79.7 pg/mL Normal 18.5-88.0 [facility] ([place]) Comment on above: Performed By: #### A DIFF, ANEU, VIDH, LIPID, TSH, FT4, URIC, FERR, GFR, CMP, CBC #### [place] [address] #### PTH #### [place] [address] TSHon 04-09-2023 TSH Qn 1.26 m[IU]/L Normal 0.36-3.74 [facility] ([place]) Comment on above: Performed By: #### G , CRE #### [address] [place], [place] [address] URICon 04-09-2023 Uric Acid Lvl 6.0 mg/dL Normal 3.5-7.2 [facility] ([place]) Comment on above: Performed By: #### G , CRE #### [address] [place], [place] [address] VIDHon 04-09-2023 Vit. D 25-Hydroxy 72.5 ng/mL Normal [facility] ([place]) Comment on above: Result Comment: Inte rpretive Values Based on Total 25(OH) Vitamin D: Deficient <20 ng/mL Insufficient 20 - <30 ng/mL Sufficient 30-100 ng/mL Performed By: #### G , CRE #### [address] [place] [id number] [place], [place] [address] LABORATORYOrdered By: Sky Elias on 10-02-2022 Albumin DL <= 20 mg/L (U) [Mass/Vol] 704 mcg/dL Invalid Interpretation Code AO ADM SS Albumin/Creatinine DL <= 20 mg/L (U) [Mass ratio] 10 mcg/mg Invalid Interpretation Code 0 - 30 mcg/mg AO ADM SS Creatinine (U) [Mass/Vol] 69.0 mg/dL Invalid Interpretation Code 39.0 - 259.0 mg/dL AO ADM SS LABORATORYOrdered By: Christin Mchugh on 04-13-2022 INR Coag (PPP) [Relative time] 1.1 {INR} Invalid Interpretation Code AH Auto Coag SS PT Coag (PPP) [Time] 13.5 s Invalid Interpretation Code 9.0 - 14.9 seconds AH Auto Coag SS LABORATORYOrdered By: SYSTEM SYSTEM on 04-13-2022 Platelets (Bld) [#/Vol] 245 103/mcL Invalid Interpretation Code 150 - 450 10^3/mcL AH Workflow SS LABORATORYOrdered By: Camille Brush on 02-02-2022 Calcium [Mass/Vol] 8.3 mg/dL Invalid Interpretation Code 8.4 - 10.2 mg/dL AO ADM SS Chloride [Moles/Vol] 105 mmol/L Invalid Interpretation Code 98 - 107 mmol/L AO ADM SS CO2 [Moles/Vol] 31 mmol/L Invalid Interpretation Code 23 - 31 mmol/L AO ADM SS Creatinine [Mass/Vol] 1.36 mg/dL Invalid Interpretation Code 0.70 - 1.30 mg/dL AO ADM SS Electrolyte Balance 4.0 mEq/L Invalid Interpretation Code 4.0 - 15.0 mEq/L AO ADM SS Glucose [Mass/Vol] 100 mg/dL Invalid Interpretation Code 83 - 110 mg/dL AO ADM SS Potassium [Moles/Vol] 4.2 mmol/L Invalid Interpretation Code 3.5 - 5.1 mmol/L AO ADM SS Sodium [Moles/Vol] 140 mmol/L Invalid Interpretation Code 136 - 145 mmol/L AO ADM SS Urea nitrogen [Mass/Vol] 12 mg/dL Invalid Interpretation Code 7 - 18 mg/dL AO ADM SS Urea nitrogen/Creatinine [Mass ratio] 9 ratio Invalid Interpretation Code 7 - 27 ratio AO ADM SS LABORATORYOrdered By: SYSTEM SYSTEM on 02-02-2022 GFR 60 ml/min/1.73sqm Invalid Interpretation Code AO Chemistry S GFR Non- 50 ml/min/1.73sqm Invalid Interpretation Code AO Chemistry S LABORATORYOrdered By: Camille Brush on 02-01-2022 Basophil, Absolute 0.0 103/mcL Invalid Interpretation Code 0.0 - 0.2 10^3/mcL AO Workflow SS Basophils/100 WBC (Bld) 0.2 % Invalid Interpretation Code 0.0 - 2.5 % AO Workflow SS Calcium [Mass/Vol] 8.2 mg/dL Invalid Interpretation Code 8.4 - 10.2 mg/dL AO ADM SS Chloride [Moles/Vol] 104 mmol/L Invalid Interpretation Code 98 - 107 mmol/L AO ADM SS CO2 [Moles/Vol] 28 mmol/L Invalid Interpretation Code 23 - 31 mmol/L AO ADM SS Creatinine [Mass/Vol] 1.29 mg/dL Invalid Interpretation Code 0.70 - 1.30 mg/dL AO ADM SS Electrolyte Balance 9.0 mEq/L Invalid Interpretation Code 4.0 - 15.0 mEq/L AO ADM SS Eosinophil, Absolute 0.2 103/mcL Invalid Interpretation Code 0.0 - 0.4 10^3/mcL AO Workflow SS Eosinophils/100 WBC (Bld) 2.5 % Invalid Interpretation Code 0.0 - 7.0 % AO Workflow SS Erythrocyte distribution width (RBC) [Ratio] 14.4 % Invalid Interpretation Code 11.5 - 14.5 % AO Workflow SS Glucose [Mass/Vol] 96 mg/dL Invalid Interpretation Code 83 - 110 mg/dL AO ADM SS Hematocrit (Bld) [Volume fraction] 33.7 % Invalid Interpretation Code 42.0 - 52.0 % AO Workflow SS Hemoglobin (Bld) [Mass/Vol] 11.3 G/dL Invalid Interpretation Code 14.0 - 18.0 G/dL AO Workflow SS Lymphocyte, Absolute 1.5 103/mcL Invalid Interpretation Code 0.8 - 3.9 10^3/mcL AO Workflow SS Lymphocytes/100 WBC (Bld) 17.6 % Invalid Interpretation Code 10.0 - 50.0 % AO Workflow SS MCH (RBC) [Entitic mass] 28.5 pg Invalid Interpretation Code 27.0 - 31.2 pg AO Workflow SS MCHC 33.4 G/dL Invalid Interpretation Code 31.8 - 35.4 G/dL AO Workflow SS MCV (RBC) [Entitic vol] 85.6 fL Invalid Interpretation Code 80.0 - 94.0 fL AO Workflow SS Monocyte, Absolute 0.6 103/mcL Invalid Interpretation Code 0.2 - 1.0 10^3/mcL AO Workflow SS Monocytes/100 WBC (Bld) 7.2 % Invalid Interpretation Code 1.7 - 13.0 % AO Workflow SS Neutrophil, Absolute 6.1 103/mcL Invalid Interpretation Code 2.9 - 6.2 10^3/mcL AO Workflow SS Neutrophils/100 WBC (Bld) 72.5 % Invalid Interpretation Code 37.0 - 80.0 % AO Workflow SS Platelet mean volume (Bld) [Entitic vol] 8.3 fL Invalid Interpretation Code 7.4 - 10.4 fL AO Workflow SS Platelets (Bld) [#/Vol] 231 103/mcL Invalid Interpretation Code 130 - 400 10^3/mcL AO Workflow SS Potassium [Moles/Vol] 4.0 mmol/L Invalid Interpretation Code 3.5 - 5.1 mmol/L AO ADM SS RBC (Bld) [#/Vol] 3.94 106/mcL Invalid Interpretation Code 4.04 - 6.13 10^6/mcL AO Workflow SS Sodium [Moles/Vol] 141 mmol/L Invalid Interpretation Code 136 - 145 mmol/L AO ADM SS Urea nitrogen [Mass/Vol] 14 mg/dL Invalid Interpretation Code 7 - 18 mg/dL AO ADM SS Urea nitrogen/Creatinine [Mass ratio] 11 ratio Invalid Interpretation Code 7 - 27 ratio AO ADM SS WBC 8.4 103/mcL Invalid Interpretation Code 4.6 - 10.8 10^3/mcL AO Workflow SS LABORATORYOrdered By: SYSTEM SYSTEM on 02-01-2022 GFR 64 ml/min/1.73sqm Invalid Interpretation Code AO Chemistry S GFR Non- 53 ml/min/1.73sqm Invalid Interpretation Code AO Chemistry S Monocyte distribution width Auto (Bld) [Entitic vol] Not Performed 1 *NA* (02/01/22 5:33 AM) Invalid Interpretation Code 0.00 - 20.00 AO Hematology S Comment on above: Result Comment: MDW testing performed only on adult ER patients between the ages of 18-89 years. LABORATORYOrdered By: Isa Lomeli on 01-31-2022 Basophil, Absolute 0.0 103/mcL Invalid Interpretation Code 0.0 - 0.2 10^3/mcL AO Workflow SS Basophils/100 WBC (Bld) 0.4 % Invalid Interpretation Code 0.0 - 2.5 % AO Workflow SS Calcium [Mass/Vol] 7.9 mg/dL Invalid Interpretation Code 8.4 - 10.2 mg/dL AO ADM SS Chloride [Moles/Vol] 103 mmol/L Invalid Interpretation Code 98 - 107 mmol/L AO ADM SS CO2 [Moles/Vol] 25 mmol/L Invalid Interpretation Code 23 - 31 mmol/L AO ADM SS Creatinine [Mass/Vol] 1.33 mg/dL Invalid Interpretation Code 0.70 - 1.30 mg/dL AO ADM SS Electrolyte Balance 9.0 mEq/L Invalid Interpretation Code 4.0 - 15.0 mEq/L AO ADM SS Eosinophil, Absolute 0.3 103/mcL Invalid Interpretation Code 0.0 - 0.4 10^3/mcL AO Workflow SS Eosinophils/100 WBC (Bld) 4.3 % Invalid Interpretation Code 0.0 - 7.0 % AO Workflow SS Erythrocyte distribution width (RBC) [Ratio] 14.5 % Invalid Interpretation Code 11.5 - 14.5 % AO Workflow SS Glucose [Mass/Vol] 75 mg/dL Invalid Interpretation Code 83 - 110 mg/dL AO ADM SS Hematocrit (Bld) [Volume fraction] 34.3 % Invalid Interpretation Code 42.0 - 52.0 % AO Workflow SS Hemoglobin (Bld) [Mass/Vol] 11.4 G/dL Invalid Interpretation Code 14.0 - 18.0 G/dL AO Workflow SS Lymphocyte, Absolute 1.3 103/mcL Invalid Interpretation Code 0.8 - 3.9 10^3/mcL AO Workflow SS Lymphocytes/100 WBC (Bld) 22.3 % Invalid Interpretation Code 10.0 - 50.0 % AO Workflow SS MCH (RBC) [Entitic mass] 28.6 pg Invalid Interpretation Code 27.0 - 31.2 pg AO Workflow SS MCHC 33.2 G/dL Invalid Interpretation Code 31.8 - 35.4 G/dL AO Workflow SS MCV (RBC) [Entitic vol] 86.3 fL Invalid Interpretation Code 80.0 - 94.0 fL AO Workflow SS Monocyte, Absolute 0.4 103/mcL Invalid Interpretation Code 0.2 - 1.0 10^3/mcL AO Workflow SS Monocytes/100 WBC (Bld) 6.7 % Invalid Interpretation Code 1.7 - 13.0 % AO Workflow SS Neutrophil, Absolute 4.0 103/mcL Invalid Interpretation Code 2.9 - 6.2 10^3/mcL AO Workflow SS Neutrophils/100 WBC (Bld) 66.3 % Invalid Interpretation Code 37.0 - 80.0 % AO Workflow SS Platelet mean volume (Bld) [Entitic vol] 8.1 fL Invalid Interpretation Code 7.4 - 10.4 fL AO Workflow SS Platelets (Bld) [#/Vol] 212 103/mcL Invalid Interpretation Code 130 - 400 10^3/mcL AO Workflow SS Potassium [Moles/Vol] 4.3 mmol/L Invalid Interpretation Code 3.5 - 5.1 mmol/L AO ADM SS RBC (Bld) [#/Vol] 3.97 106/mcL Invalid Interpretation Code 4.04 - 6.13 10^6/mcL AO Workflow SS Sodium [Moles/Vol] 137 mmol/L Invalid Interpretation Code 136 - 145 mmol/L AO ADM SS Urea nitrogen [Mass/Vol] 20 mg/dL Invalid Interpretation Code 7 - 18 mg/dL AO ADM SS Urea nitrogen/Creatinine [Mass ratio] 15 ratio Invalid Interpretation Code 7 - 27 ratio AO ADM SS WBC 6.0 103/mcL Invalid Interpretation Code 4.6 - 10.8 10^3/mcL AO Workflow SS LABORATORYOrdered By: SYSTEM SYSTEM on 01-31-2022 GFR 62 ml/min/1.73sqm Invalid Interpretation Code AO Chemistry S GFR Non- 51 ml/min/1.73sqm Invalid Interpretation Code AO Chemistry S Monocyte distribution width Auto (Bld) [Entitic vol] Not Performed 2 *NA* (01/31/22 5:48 AM) Invalid Interpretation Code 0.00 - 20.00 AO Hematology S Comment on above: Result Comment: MDW testing performed only on adult ER patients between the ages of 18-89 years. LABORATORYOrdered By: Camille Brush on 01-30-2022 Basophil, Absolute 0.0 103/mcL Invalid Interpretation Code 0.0 - 0.2 10^3/mcL AO Workflow SS Basophils/100 WBC (Bld) 0.3 % Invalid Interpretation Code 0.0 - 2.5 % AO Workflow SS Eosinophil, Absolute 0.1 103/mcL Invalid Interpretation Code 0.0 - 0.4 10^3/mcL AO Workflow SS Eosinophils/100 WBC (Bld) 2.0 % Invalid Interpretation Code 0.0 - 7.0 % AO Workflow SS Erythrocyte distribution width (RBC) [Ratio] 14.5 % Invalid Interpretation Code 11.5 - 14.5 % AO Workflow SS Hematocrit (Bld) [Volume fraction] 34.6 % Invalid Interpretation Code 42.0 - 52.0 % AO Workflow SS Hemoglobin (Bld) [Mass/Vol] 11.5 G/dL Invalid Interpretation Code 14.0 - 18.0 G/dL AO Workflow SS Lymphocyte, Absolute 1.6 103/mcL Invalid Interpretation Code 0.8 - 3.9 10^3/mcL AO Workflow SS Lymphocytes/100 WBC (Bld) 23.6 % Invalid Interpretation Code 10.0 - 50.0 % AO Workflow SS Magnesium [Mass/Vol] 2.2 mg/dL Invalid Interpretation Code 1.8 - 2.4 mg/dL AO ADM SS MCH (RBC) [Entitic mass] 28.6 pg Invalid Interpretation Code 27.0 - 31.2 pg AO Workflow SS MCHC 33.3 G/dL Invalid Interpretation Code 31.8 - 35.4 G/dL AO Workflow SS MCV (RBC) [Entitic vol] 85.9 fL Invalid Interpretation Code 80.0 - 94.0 fL AO Workflow SS Monocyte, Absolute 0.6 103/mcL Invalid Interpretation Code 0.2 - 1.0 10^3/mcL AO Workflow SS Monocytes/100 WBC (Bld) 9.3 % Invalid Interpretation Code 1.7 - 13.0 % AO Workflow SS Neutrophil, Absolute 4.4 103/mcL Invalid Interpretation Code 2.9 - 6.2 10^3/mcL AO Workflow SS Neutrophils/100 WBC (Bld) 64.8 % Invalid Interpretation Code 37.0 - 80.0 % AO Workflow SS Platelet mean volume (Bld) [Entitic vol] 8.2 fL Invalid Interpretation Code 7.4 - 10.4 fL AO Workflow SS Platelets (Bld) [#/Vol] 245 103/mcL Invalid Interpretation Code 130 - 400 10^3/mcL AO Workflow SS RBC (Bld) [#/Vol] 4.02 106/mcL Invalid Interpretation Code 4.04 - 6.13 10^6/mcL AO Workflow SS WBC 6.9 103/mcL Invalid Interpretation Code 4.6 - 10.8 10^3/mcL AO Workflow SS LABORATORYOrdered By: SYSTEM SYSTEM on 01-30-2022 Monocyte distribution width Auto (Bld) [Entitic vol] Not Performed 3 *NA* (01/30/22 5:10 AM) Invalid Interpretation Code 0.00 - 20.00 AO Hematology S Comment on above: Result Comment: MDW testing performed only on adult ER patients between the ages of 18-89 years. LABORATORYOrdered By: Camille Brush on 01-29-2022 Albumin BCP dye [Mass/Vol] 3.5 G/dL Invalid Interpretation Code 3.4 - 4.8 G/dL AO ADM SS Albumin/Globulin [Mass ratio] 0.9 {ratio} Invalid Interpretation Code 1.1 - 2.5 ratio AO ADM SS ALP [Catalytic activity/Vol] 149 U/L Invalid Interpretation Code 40 - 135 U/L AO ADM SS ALT With P-5'-P [Catalytic activity/Vol] 18 U/L Invalid Interpretation Code 16 - 63 U/L AO ADM SS Appearance (U) Clear (01/29/22 7:30 AM) Invalid Interpretation Code Clear AO Auto Urine SS AST With P-5'-P [Catalytic activity/Vol] 21 U/L Invalid Interpretation Code 10 - 40 U/L AO ADM SS Bilirubin [Mass/Vol] 0.4 mg/dL Invalid Interpretation Code 0.2 - 1.0 mg/dL AO ADM SS Bilirubin Ql (U) Negative (01/29/22 7:30 AM) Invalid Interpretation Code Negative AO Auto Urine SS Color (U) Yellow (01/29/22 7:30 AM) Invalid Interpretation Code AO Auto Urine SS Globulin 4.0 G/dL Invalid Interpretation Code AO ADM SS Glucose Test strip (U) [Mass/Vol] Negative Invalid Interpretation Code Negativemg/d L AO Auto Urine SS Hemoglobin Auto test strip (U) [Mass/Vol] Large *ABN* (01/29/22 7:30 AM) Invalid Interpretation Code Negative AO Auto Urine SS Ketones Ql (U) Negative Invalid Interpretation Code Negativemg/d L AO Auto Urine SS Lipase [Catalytic activity/Vol] 136 U/L Invalid Interpretation Code 73 - 393 U/L AO ADM SS Protein [Mass/Vol] 7.5 G/dL Invalid Interpretation Code 6.4 - 8.2 G/dL AO ADM SS UA Leuk Est Negative (01/29/22 7:30 AM) Invalid Interpretation Code Negative AO Auto Urine SS UA Nitrite Negative (01/29/22 7:30 AM) Invalid Interpretation Code Negative AO Auto Urine SS UA pH 5.5 (01/29/22 7:30 AM) Invalid Interpretation Code 5.0 - 8.0 AO Auto Urine SS UA Protein Negative Invalid Interpretation Code Negativemg/d L AO Auto Urine SS UA RBC 0-5 /HPF Invalid Interpretation Code None Seen/HPF AO Auto Urine SS UA Spec Grav 1.020 (01/29/22 7:30 AM) Invalid Interpretation Code 1.015-1.025 AO Auto Urine SS UA Specimen Type Clean Catch (01/29/22 7:30 AM) Invalid Interpretation Code AO Auto Urine SS UA Squam Epithelial 0-5 /HPF Invalid Interpretation Code None Seen/HPF AO Auto Urine SS UA Urobilinogen 0.2 E.U./dL Invalid Interpretation Code 0.2-1.0E.U./ dL AO Auto Urine SS WBC LM.HPF (Urine sed) [#/Area] 0-5 /HPF Invalid Interpretation Code None Seen/HPF AO Auto Urine SS LABORATORYOrdered By: Sky Elias on 12-12-2021 Free T4 [Mass/Vol] 1.28 ng/dL Invalid Interpretation Code 0.76 - 1.46 ng/dL AO ADM SS TSH Qn 0.11 m[IU]/L Invalid Interpretation Code 0.36 - 3.74 mcIU/mL AO ADM SS LABORATORYOrdered By: Petros Chavira on 11-21-2021 Albumin BCP dye [Mass/Vol] 3.0 G/dL Invalid Interpretation Code 3.4 - 4.8 G/dL AO ADM SS Albumin/Globulin [Mass ratio] 0.8 {ratio} Invalid Interpretation Code 1.1 - 2.5 ratio AO ADM SS ALP [Catalytic activity/Vol] 146 U/L Invalid Interpretation Code 40 - 135 U/L AO ADM SS ALT With P-5'-P [Catalytic activity/Vol] 16 U/L Invalid Interpretation Code 16 - 63 U/L AO ADM SS AST With P-5'-P [Catalytic activity/Vol] 18 U/L Invalid Interpretation Code 10 - 40 U/L AO ADM SS Bilirubin [Mass/Vol] 0.4 mg/dL Invalid Interpretation Code 0.2 - 1.0 mg/dL AO ADM SS Calcium [Mass/Vol] 8.9 mg/dL Invalid Interpretation Code 8.4 - 10.2 mg/dL AO ADM SS Chloride [Moles/Vol] 106 mmol/L Invalid Interpretation Code 98 - 107 mmol/L AO ADM SS CO2 [Moles/Vol] 27 mmol/L Invalid Interpretation Code 23 - 31 mmol/L AO ADM SS Creatinine [Mass/Vol] 1.54 mg/dL Invalid Interpretation Code 0.70 - 1.30 mg/dL AO ADM SS CRP [Mass/Vol] 1.8 mg/dL Invalid Interpretation Code 0.0 - 0.9 mg/dL AO ADM SS Electrolyte Balance 9.0 mEq/L Invalid Interpretation Code 4.0 - 15.0 mEq/L AO ADM SS Globulin 3.9 G/dL Invalid Interpretation Code AO ADM SS Glucose [Mass/Vol] 103 mg/dL Invalid Interpretation Code 83 - 110 mg/dL AO ADM SS Magnesium [Mass/Vol] 2.5 mg/dL Invalid Interpretation Code 1.8 - 2.4 mg/dL AO ADM SS Potassium [Moles/Vol] 4.4 mmol/L Invalid Interpretation Code 3.5 - 5.1 mmol/L AO ADM SS Protein [Mass/Vol] 6.9 G/dL Invalid Interpretation Code 6.4 - 8.2 G/dL AO ADM SS Sodium [Moles/Vol] 142 mmol/L Invalid Interpretation Code 136 - 145 mmol/L AO ADM SS TSH Qn 3.42 m[IU]/L Invalid Interpretation Code 0.36 - 3.74 mcIU/mL AO ADM SS Urea nitrogen [Mass/Vol] 23 mg/dL Invalid Interpretation Code 7 - 18 mg/dL AO ADM SS Urea nitrogen/Creatinine [Mass ratio] 15 ratio Invalid Interpretation Code 7 - 27 ratio AO ADM SS LABORATORYOrdered By: Isa Lomeli on 11-21-2021 Appearance (U) Clear (11/21/21 10:22 AM) Invalid Interpretation Code Clear AO Auto Urine SS Basophil, Absolute 0.00 103/mcL Invalid Interpretation Code 0.00 - 0.19 10^3/mcL AO Auto Heme SS Basophils/100 WBC (Bld) 0.4 % Invalid Interpretation Code 0.0 - 2.5 % AO Auto Heme SS Bilirubin Ql (U) Negative (11/21/21 10:22 AM) Invalid Interpretation Code Negative AO Auto Urine SS Color (U) Yellow (11/21/21 10:22 AM) Invalid Interpretation Code AO Auto Urine SS Eosinophil, Absolute 0.20 103/mcL Invalid Interpretation Code 0.00 - 0.40 10^3/mcL AO Auto Heme SS Eosinophils/100 WBC (Bld) 2.4 % Invalid Interpretation Code 0.0 - 7.0 % AO Auto Heme SS Erythrocyte distribution width (RBC) [Ratio] 14.2 % Invalid Interpretation Code 11.5 - 14.5 % AO Auto Heme SS Glucose Test strip (U) [Mass/Vol] Negative Invalid Interpretation Code Negativemg/d L AO Auto Urine SS Hematocrit (Bld) [Volume fraction] 38.5 % Invalid Interpretation Code 42.0 - 52.0 % AO Auto Heme SS Hemoglobin (Bld) [Mass/Vol] 12.5 G/dL Invalid Interpretation Code 14.0 - 18.0 G/dL AO Auto Heme SS Hemoglobin Auto test strip (U) [Mass/Vol] Negative (11/21/21 10:22 AM) Invalid Interpretation Code Negative AO Auto Urine SS Ketones Ql (U) Negative Invalid Interpretation Code Negativemg/d L AO Auto Urine SS Lymphocyte, Absolute 2.00 103/mcL Invalid Interpretation Code 0.77 - 3.85 10^3/mcL AO Auto Heme SS Lymphocytes/100 WBC (Bld) 26.1 % Invalid Interpretation Code 10.0 - 50.0 % AO Auto Heme SS MCH (RBC) [Entitic mass] 28.4 pg Invalid Interpretation Code 27.0 - 31.2 pg AO Auto Heme SS MCHC (RBC) [Mass/Vol] 32.5 G/dL Invalid Interpretation Code 31.8 - 35.4 G/dL AO Auto Heme SS MCV (RBC) [Entitic vol] 87.3 fL Invalid Interpretation Code 80.0 - 94.0 fL AO Auto Heme SS Monocyte, Absolute 0.50 103/mcL Invalid Interpretation Code 0.15 - 1.00 10^3/mcL AO Auto Heme SS Monocytes/100 WBC (Bld) 6.8 % Invalid Interpretation Code 1.7 - 13.0 % AO Auto Heme SS Neutrophil, Absolute 4.80 103/mcL Invalid Interpretation Code 2.85 - 6.16 10^3/mcL AO Auto Heme SS Neutrophils/100 WBC (Bld) 64.3 % Invalid Interpretation Code 37.0 - 80.0 % AO Auto Heme SS Platelet mean volume (Bld) [Entitic vol] 8.4 fL Invalid Interpretation Code 7.4 - 10.4 fL AO Auto Heme SS Platelets (Bld) [#/Vol] 297 103/mcL Invalid Interpretation Code 130 - 400 10^3/mcL AO Auto Heme SS RBC (Bld) [#/Vol] 4.41 106/mcL Invalid Interpretation Code 4.04 - 6.13 10^6/mcL AO Auto Heme SS UA Leuk Est Negative (11/21/21 10:22 AM) Invalid Interpretation Code Negative AO Auto Urine SS UA Nitrite Negative (11/21/21 10:22 AM) Invalid Interpretation Code Negative AO Auto Urine SS UA pH 5.5 (11/21/21 10:22 AM) Invalid Interpretation Code 5.0 - 8.0 AO Auto Urine SS UA Protein Negative Invalid Interpretation Code Negativemg/d L AO Auto Urine SS UA Spec Grav 1.020 (11/21/21 10:22 AM) Invalid Interpretation Code 1.015-1.025 AO Auto Urine SS UA Specimen Type Clean Catch (11/21/21 10:22 AM) Invalid Interpretation Code AO Auto Urine SS UA Urobilinogen 0.2 E.U./dL Invalid Interpretation Code 0.2-1.0E.U./ dL AO Auto Urine SS WBC (Bld) [#/Vol] 7.50 103/mcL Invalid Interpretation Code 4.60 - 10.80 10^3/mcL AO Auto Heme SS LABORATORYOrdered By: SYSTEM SYSTEM on 11-21-2021 GFR 52 ml/min/1.73sqm Invalid Interpretation Code AO Chemistry S GFR Non- 43 ml/min/1.73sqm Invalid Interpretation Code AO Chemistry S LABORATORYOrdered By: Isa Lomeli on 11-01-2021 Albumin BCP dye [Mass/Vol] 3.0 G/dL Invalid Interpretation Code 3.4 - 4.8 G/dL AO ADM SS Albumin/Globulin [Mass ratio] 0.8 {ratio} Invalid Interpretation Code 1.1 - 2.5 ratio AO ADM SS ALP [Catalytic activity/Vol] 121 U/L Invalid Interpretation Code 40 - 135 U/L AO ADM SS ALT With P-5'-P [Catalytic activity/Vol] 18 U/L Invalid Interpretation Code 16 - 63 U/L AO ADM SS AST With P-5'-P [Catalytic activity/Vol] 17 U/L Invalid Interpretation Code 10 - 40 U/L AO ADM SS Bilirubin [Mass/Vol] 0.2 mg/dL Invalid Interpretation Code 0.2 - 1.0 mg/dL AO ADM SS Calcium [Mass/Vol] 8.6 mg/dL Invalid Interpretation Code 8.4 - 10.2 mg/dL AO ADM SS Chloride [Moles/Vol] 106 mmol/L Invalid Interpretation Code 98 - 107 mmol/L AO ADM SS Cholesterol [Mass/Vol] 87 mg/dL Invalid Interpretation Code 0 - 200 mg/dL AO ADM SS Cholesterol in HDL [Mass/Vol] 37 mg/dL Invalid Interpretation Code 40 - 60 mg/dL AO ADM SS Cholesterol in LDL [Mass/Vol] 32 mg/dL Invalid Interpretation Code 0 - 130 mg/dL AO ADM SS CO2 [Moles/Vol] 28 mmol/L Invalid Interpretation Code 23 - 31 mmol/L AO ADM SS Creatinine [Mass/Vol] 1.30 mg/dL Invalid Interpretation Code 0.70 - 1.30 mg/dL AO ADM SS Electrolyte Balance 8.0 mEq/L Invalid Interpretation Code 4.0 - 15.0 mEq/L AO ADM SS Free T4 [Mass/Vol] 0.80 ng/dL Invalid Interpretation Code 0.76 - 1.46 ng/dL AO ADM SS Globulin 3.6 G/dL Invalid Interpretation Code AO ADM SS Glucose [Mass/Vol] 86 mg/dL Invalid Interpretation Code 83 - 110 mg/dL AO ADM SS Potassium [Moles/Vol] 4.5 mmol/L Invalid Interpretation Code 3.5 - 5.1 mmol/L AO ADM SS Protein [Mass/Vol] 6.6 G/dL Invalid Interpretation Code 6.4 - 8.2 G/dL AO ADM SS Sodium [Moles/Vol] 142 mmol/L Invalid Interpretation Code 136 - 145 mmol/L AO ADM SS Triglyceride [Mass/Vol] 90 mg/dL Invalid Interpretation Code 0 - 150 mg/dL AO ADM SS TSH Qn 26.18 m[IU]/L Invalid Interpretation Code 0.36 - 3.74 mcIU/mL AO ADM SS Urea nitrogen [Mass/Vol] 29 mg/dL Invalid Interpretation Code 7 - 18 mg/dL AO ADM SS Urea nitrogen/Creatinine [Mass ratio] 22 ratio Invalid Interpretation Code 7 - 27 ratio AO ADM SS Vit. D 25-Hydroxy 70.7 ng/mL Invalid Interpretation Code AO ADM SS LABORATORYOrdered By: SYSTEM SYSTEM on 11-01-2021 GFR 64 ml/min/1.73sqm Invalid Interpretation Code AO Chemistry S GFR Non- 52 ml/min/1.73sqm Invalid Interpretation Code AO Chemistry S LABORATORYOrdered By: Isa Lomeli on 09-08-2021 Basophil, Absolute 0.00 103/mcL Invalid Interpretation Code 0.00 - 0.19 10^3/mcL AO Auto Heme SS Basophils/100 WBC (Bld) 0.4 % Invalid Interpretation Code 0.0 - 2.5 % AO Auto Heme SS Calcium [Mass/Vol] 8.5 mg/dL Invalid Interpretation Code 8.4 - 10.2 mg/dL AO ADM SS Chloride [Moles/Vol] 105 mmol/L Invalid Interpretation Code 98 - 107 mmol/L AO ADM SS CO2 [Moles/Vol] 28 mmol/L Invalid Interpretation Code 23 - 31 mmol/L AO ADM SS Creatinine [Mass/Vol] 1.22 mg/dL Invalid Interpretation Code 0.70 - 1.30 mg/dL AO ADM SS Electrolyte Balance 9.0 mEq/L Invalid Interpretation Code 4.0 - 15.0 mEq/L AO ADM SS Eosinophil, Absolute 0.20 103/mcL Invalid Interpretation Code 0.00 - 0.40 10^3/mcL AO Auto Heme SS Eosinophils/100 WBC (Bld) 3.8 % Invalid Interpretation Code 0.0 - 7.0 % AO Auto Heme SS Erythrocyte distribution width (RBC) [Ratio] 14.1 % Invalid Interpretation Code 11.5 - 14.5 % AO Auto Heme SS Glucose [Mass/Vol] 94 mg/dL Invalid Interpretation Code 83 - 110 mg/dL AO ADM SS Hematocrit (Bld) [Volume fraction] 36.8 % Invalid Interpretation Code 42.0 - 52.0 % AO Auto Heme SS Hemoglobin (Bld) [Mass/Vol] 12.1 G/dL Invalid Interpretation Code 14.0 - 18.0 G/dL AO Auto Heme SS Lymphocyte, Absolute 1.80 103/mcL Invalid Interpretation Code 0.77 - 3.85 10^3/mcL AO Auto Heme SS Lymphocytes/100 WBC (Bld) 27.6 % Invalid Interpretation Code 10.0 - 50.0 % AO Auto Heme SS Magnesium [Mass/Vol] 2.1 mg/dL Invalid Interpretation Code 1.8 - 2.4 mg/dL AO ADM SS MCH (RBC) [Entitic mass] 29.1 pg Invalid Interpretation Code 27.0 - 31.2 pg AO Auto Heme SS MCHC (RBC) [Mass/Vol] 33.0 G/dL Invalid Interpretation Code 31.8 - 35.4 G/dL AO Auto Heme SS MCV (RBC) [Entitic vol] 88.1 fL Invalid Interpretation Code 80.0 - 94.0 fL AO Auto Heme SS Monocyte, Absolute 0.50 103/mcL Invalid Interpretation Code 0.15 - 1.00 10^3/mcL AO Auto Heme SS Monocytes/100 WBC (Bld) 7.3 % Invalid Interpretation Code 1.7 - 13.0 % AO Auto Heme SS Neutrophil, Absolute 4.00 103/mcL Invalid Interpretation Code 2.85 - 6.16 10^3/mcL AO Auto Heme SS Neutrophils/100 WBC (Bld) 60.9 % Invalid Interpretation Code 37.0 - 80.0 % AO Auto Heme SS Platelet mean volume (Bld) [Entitic vol] 8.3 fL Invalid Interpretation Code 7.4 - 10.4 fL AO Auto Heme SS Platelets (Bld) [#/Vol] 262 103/mcL Invalid Interpretation Code 130 - 400 10^3/mcL AO Auto Heme SS Potassium [Moles/Vol] 4.1 mmol/L Invalid Interpretation Code 3.5 - 5.1 mmol/L AO ADM SS RBC (Bld) [#/Vol] 4.17 106/mcL Invalid Interpretation Code 4.04 - 6.13 10^6/mcL AO Auto Heme SS Sodium [Moles/Vol] 142 mmol/L Invalid Interpretation Code 136 - 145 mmol/L AO ADM SS Urea nitrogen [Mass/Vol] 13 mg/dL Invalid Interpretation Code 7 - 18 mg/dL AO ADM SS Urea nitrogen/Creatinine [Mass ratio] 11 ratio Invalid Interpretation Code 7 - 27 ratio AO ADM SS WBC (Bld) [#/Vol] 6.60 103/mcL Invalid Interpretation Code 4.60 - 10.80 10^3/mcL AO Auto Heme SS LABORATORYOrdered By: SYSTEM SYSTEM on 09-08-2021 GFR 69 ml/min/1.73sqm Invalid Interpretation Code AO Chemistry S GFR Non- 57 ml/min/1.73sqm Invalid Interpretation Code AO Chemistry S LABORATORYOrdered By: Camille Brush on 09-07-2021 Basophil, Absolute 0.00 103/mcL Invalid Interpretation Code 0.00 - 0.19 10^3/mcL AO Auto Heme SS Basophils/100 WBC (Bld) 0.4 % Invalid Interpretation Code 0.0 - 2.5 % AO Auto Heme SS Eosinophil, Absolute 0.20 103/mcL Invalid Interpretation Code 0.00 - 0.40 10^3/mcL AO Auto Heme SS Eosinophils/100 WBC (Bld) 3.9 % Invalid Interpretation Code 0.0 - 7.0 % AO Auto Heme SS Erythrocyte distribution width (RBC) [Ratio] 14.1 % Invalid Interpretation Code 11.5 - 14.5 % AO Auto Heme SS Hematocrit (Bld) [Volume fraction] 34.4 % Invalid Interpretation Code 42.0 - 52.0 % AO Auto Heme SS Hemoglobin (Bld) [Mass/Vol] 11.4 G/dL Invalid Interpretation Code 14.0 - 18.0 G/dL AO Auto Heme SS Lymphocyte, Absolute 1.80 103/mcL Invalid Interpretation Code 0.77 - 3.85 10^3/mcL AO Auto Heme SS Lymphocytes/100 WBC (Bld) 29.3 % Invalid Interpretation Code 10.0 - 50.0 % AO Auto Heme SS MCH (RBC) [Entitic mass] 29.3 pg Invalid Interpretation Code 27.0 - 31.2 pg AO Auto Heme SS MCHC (RBC) [Mass/Vol] 33.2 G/dL Invalid Interpretation Code 31.8 - 35.4 G/dL AO Auto Heme SS MCV (RBC) [Entitic vol] 88.1 fL Invalid Interpretation Code 80.0 - 94.0 fL AO Auto Heme SS Monocyte, Absolute 0.50 103/mcL Invalid Interpretation Code 0.15 - 1.00 10^3/mcL AO Auto Heme SS Monocytes/100 WBC (Bld) 8.0 % Invalid Interpretation Code 1.7 - 13.0 % AO Auto Heme SS Neutrophil, Absolute 3.50 103/mcL Invalid Interpretation Code 2.85 - 6.16 10^3/mcL AO Auto Heme SS Neutrophils/100 WBC (Bld) 58.4 % Invalid Interpretation Code 37.0 - 80.0 % AO Auto Heme SS Platelet mean volume (Bld) [Entitic vol] 8.3 fL Invalid Interpretation Code 7.4 - 10.4 fL AO Auto Heme SS Platelets (Bld) [#/Vol] 235 103/mcL Invalid Interpretation Code 130 - 400 10^3/mcL AO Auto Heme SS RBC (Bld) [#/Vol] 3.90 106/mcL Invalid Interpretation Code 4.04 - 6.13 10^6/mcL AO Auto Heme SS WBC (Bld) [#/Vol] 6.00 103/mcL Invalid Interpretation Code 4.60 - 10.80 10^3/mcL AO Auto Heme SS LABORATORYOrdered By: Brigid Avila on 09-07-2021 Calcium [Mass/Vol] 8.3 mg/dL Invalid Interpretation Code 8.4 - 10.2 mg/dL AO ADM SS Chloride [Moles/Vol] 106 mmol/L Invalid Interpretation Code 98 - 107 mmol/L AO ADM SS CO2 [Moles/Vol] 28 mmol/L Invalid Interpretation Code 23 - 31 mmol/L AO ADM SS Creatinine [Mass/Vol] 1.15 mg/dL Invalid Interpretation Code 0.70 - 1.30 mg/dL AO ADM SS Electrolyte Balance 7.0 mEq/L Invalid Interpretation Code 4.0 - 15.0 mEq/L AO ADM SS Glucose [Mass/Vol] 93 mg/dL Invalid Interpretation Code 83 - 110 mg/dL AO ADM SS Magnesium [Mass/Vol] 2.2 mg/dL Invalid Interpretation Code 1.8 - 2.4 mg/dL AO ADM SS Potassium [Moles/Vol] 4.2 mmol/L Invalid Interpretation Code 3.5 - 5.1 mmol/L AO ADM SS Sodium [Moles/Vol] 141 mmol/L Invalid Interpretation Code 136 - 145 mmol/L AO ADM SS Urea nitrogen [Mass/Vol] 14 mg/dL Invalid Interpretation Code 7 - 18 mg/dL AO ADM SS Urea nitrogen/Creatinine [Mass ratio] 12 ratio Invalid Interpretation Code 7 - 27 ratio AO ADM SS LABORATORYOrdered By: SYSTEM SYSTEM on 09-07-2021 GFR 73 ml/min/1.73sqm Invalid Interpretation Code AO Chemistry S GFR Non- 61 ml/min/1.73sqm Invalid Interpretation Code AO Chemistry S LABORATORYOrdered By: Bouchra Alcazar on 09-06-2021 Glucose [Mass/Vol] 80 mg/dL Invalid Interpretation Code 82 - 115 mg/dL [facility] LABORATORYOrdered By: Isa Lomeli on 09-06-2021 Basophil, Absolute 0.00 103/mcL Invalid Interpretation Code 0.00 - 0.19 10^3/mcL AO Auto Heme SS Basophils/100 WBC (Bld) 0.3 % Invalid Interpretation Code 0.0 - 2.5 % AO Auto Heme SS Calcium [Mass/Vol] 8.0 mg/dL Invalid Interpretation Code 8.4 - 10.2 mg/dL AO ADM SS Chloride [Moles/Vol] 112 mmol/L Invalid Interpretation Code 98 - 107 mmol/L AO ADM SS Comment on above: Result Comment: RECH ECKED AND VERIFIED CO2 [Moles/Vol] 27 mmol/L Invalid Interpretation Code 23 - 31 mmol/L AO ADM SS Creatinine [Mass/Vol] 1.15 mg/dL Invalid Interpretation Code 0.70 - 1.30 mg/dL AO ADM SS Electrolyte Balance 7.0 mEq/L Invalid Interpretation Code 4.0 - 15.0 mEq/L AO ADM SS Eosinophil, Absolute 0.20 103/mcL Invalid Interpretation Code 0.00 - 0.40 10^3/mcL AO Auto Heme SS Eosinophils/100 WBC (Bld) 4.0 % Invalid Interpretation Code 0.0 - 7.0 % AO Auto Heme SS Erythrocyte distribution width (RBC) [Ratio] 14.2 % Invalid Interpretation Code 11.5 - 14.5 % AO Auto Heme SS Glucose [Mass/Vol] 81 mg/dL Invalid Interpretation Code 83 - 110 mg/dL AO ADM SS Hematocrit (Bld) [Volume fraction] 33.6 % Invalid Interpretation Code 42.0 - 52.0 % AO Auto Heme SS Hemoglobin (Bld) [Mass/Vol] 11.1 G/dL Invalid Interpretation Code 14.0 - 18.0 G/dL AO Auto Heme SS Lymphocyte, Absolute 1.30 103/mcL Invalid Interpretation Code 0.77 - 3.85 10^3/mcL AO Auto Heme SS Lymphocytes/100 WBC (Bld) 22.3 % Invalid Interpretation Code 10.0 - 50.0 % AO Auto Heme SS Magnesium [Mass/Vol] 2.1 mg/dL Invalid Interpretation Code 1.8 - 2.4 mg/dL AO ADM SS MCH (RBC) [Entitic mass] 28.8 pg Invalid Interpretation Code 27.0 - 31.2 pg AO Auto Heme SS MCHC (RBC) [Mass/Vol] 32.9 G/dL Invalid Interpretation Code 31.8 - 35.4 G/dL AO Auto Heme SS MCV (RBC) [Entitic vol] 87.5 fL Invalid Interpretation Code 80.0 - 94.0 fL AO Auto Heme SS Monocyte, Absolute 0.50 103/mcL Invalid Interpretation Code 0.15 - 1.00 10^3/mcL AO Auto Heme SS Monocytes/100 WBC (Bld) 8.1 % Invalid Interpretation Code 1.7 - 13.0 % AO Auto Heme SS Neutrophil, Absolute 3.80 103/mcL Invalid Interpretation Code 2.85 - 6.16 10^3/mcL AO Auto Heme SS Neutrophils/100 WBC (Bld) 65.3 % Invalid Interpretation Code 37.0 - 80.0 % AO Auto Heme SS Platelet mean volume (Bld) [Entitic vol] 8.2 fL Invalid Interpretation Code 7.4 - 10.4 fL AO Auto Heme SS Platelets (Bld) [#/Vol] 225 103/mcL Invalid Interpretation Code 130 - 400 10^3/mcL AO Auto Heme SS Potassium [Moles/Vol] 4.2 mmol/L Invalid Interpretation Code 3.5 - 5.1 mmol/L AO ADM SS RBC (Bld) [#/Vol] 3.84 106/mcL Invalid Interpretation Code 4.04 - 6.13 10^6/mcL AO Auto Heme SS Sodium [Moles/Vol] 146 mmol/L Invalid Interpretation Code 136 - 145 mmol/L AO ADM SS Urea nitrogen [Mass/Vol] 18 mg/dL Invalid Interpretation Code 7 - 18 mg/dL AO ADM SS Urea nitrogen/Creatinine [Mass ratio] 16 ratio Invalid Interpretation Code 7 - 27 ratio AO ADM SS WBC (Bld) [#/Vol] 5.80 103/mcL Invalid Interpretation Code 4.60 - 10.80 10^3/mcL AO Auto Heme SS LABORATORYOrdered By: SYSTEM SYSTEM on 09-06-2021 GFR 73 ml/min/1.73sqm Invalid Interpretation Code AO Chemistry S GFR Non- 61 ml/min/1.73sqm Invalid Interpretation Code AO Chemistry S LABORATORYOrdered By: Camille Brush on 09-05-2021 Albumin BCP dye [Mass/Vol] 3.2 G/dL Invalid Interpretation Code 3.4 - 4.8 G/dL AO ADM SS Albumin/Globulin [Mass ratio] 0.8 {ratio} Invalid Interpretation Code 1.1 - 2.5 ratio AO ADM SS ALP [Catalytic activity/Vol] 126 U/L Invalid Interpretation Code 40 - 135 U/L AO ADM SS ALT With P-5'-P [Catalytic activity/Vol] 18 U/L Invalid Interpretation Code 16 - 63 U/L AO ADM SS AST With P-5'-P [Catalytic activity/Vol] 19 U/L Invalid Interpretation Code 10 - 40 U/L AO ADM SS Bilirubin [Mass/Vol] 0.5 mg/dL Invalid Interpretation Code 0.2 - 1.0 mg/dL AO ADM SS Globulin 3.9 G/dL Invalid Interpretation Code AO ADM SS Lipase [Catalytic activity/Vol] 90 U/L Invalid Interpretation Code 73 - 393 U/L AO ADM SS Protein [Mass/Vol] 7.1 G/dL Invalid Interpretation Code 6.4 - 8.2 G/dL AO ADM SS LABORATORYOrdered By: Sky Elias on 08-01-2021 Albumin BCP dye [Mass/Vol] 3.1 G/dL Invalid Interpretation Code 3.4 - 4.8 G/dL AO ADM SS Calcium [Mass/Vol] 8.4 mg/dL Invalid Interpretation Code 8.4 - 10.2 mg/dL AO ADM SS Calcium.ionized (Bld) [Moles/Vol] 1.20 mmol/L Invalid Interpretation Code 1.12 - 1.32 mmol/L AO Blood Gas SS Chloride [Moles/Vol] 103 mmol/L Invalid Interpretation Code 98 - 107 mmol/L AO ADM SS CO2 [Moles/Vol] 25 mmol/L Invalid Interpretation Code 23 - 31 mmol/L AO ADM SS Creatinine [Mass/Vol] 1.35 mg/dL Invalid Interpretation Code 0.70 - 1.30 mg/dL AO ADM SS Electrolyte Balance 11.0 mEq/L Invalid Interpretation Code AO ADM SS Glucose [Mass/Vol] 128 mg/dL Invalid Interpretation Code 83 - 110 mg/dL AO ADM SS HbA1c (Bld) [Mass fraction] 6.1 % Invalid Interpretation Code 4.3 - 6.4 % AO ADM SS Phosphate [Mass/Vol] 2.5 mg/dL Invalid Interpretation Code 2.3 - 4.1 mg/dL AO ADM SS Potassium [Moles/Vol] 4.2 mmol/L Invalid Interpretation Code 3.5 - 5.1 mmol/L AO ADM SS Sodium [Moles/Vol] 139 mmol/L Invalid Interpretation Code 136 - 145 mmol/L AO ADM SS Urea nitrogen [Mass/Vol] 21 mg/dL Invalid Interpretation Code 7 - 18 mg/dL AO ADM SS Urea nitrogen/Creatinine [Mass ratio] 16 ratio Invalid Interpretation Code 7 - 27 ratio AO ADM SS LABORATORYOrdered By: Petros Chavira on 08-01-2021 Band form neutrophils (Bld) [#/Vol] 2.0 10*3/uL Invalid Interpretation Code 0.0 - 5.0 % AO Auto Heme SS Basophil %, Manual 0.0 1 Invalid Interpretation Code 0.0 - 2.5 % AO Auto Heme SS Basophil, Abs Manual 0.00 103/mcL Invalid Interpretation Code 0.00 - 0.19 10^3/mcL AO Auto Heme SS Eosinophil %, Manual 2.0 1 Invalid Interpretation Code 0.0 - 7.0 % AO Auto Heme SS Eosinophil, Abs Manual 0.14 103/mcL Invalid Interpretation Code 0.00 - 0.40 10^3/mcL AO Auto Heme SS Erythrocyte distribution width (RBC) [Ratio] 13.9 % Invalid Interpretation Code 11.5 - 14.5 % AO Auto Heme SS Hematocrit (Bld) [Volume fraction] 36.8 % Invalid Interpretation Code 42.0 - 52.0 % AO Auto Heme SS Hemoglobin (Bld) [Mass/Vol] 12.3 G/dL Invalid Interpretation Code 14.0 - 18.0 G/dL AO Auto Heme SS Lymphocyte %, Manual 27.0 1 Invalid Interpretation Code 10.0 - 50.0 % AO Auto Heme SS Lymphocyte, Abs Manual 1.94 103/mcL Invalid Interpretation Code 0.77 - 3.85 10^3/mcL AO Auto Heme SS MCH (RBC) [Entitic mass] 29.6 pg Invalid Interpretation Code 27.0 - 31.2 pg AO Auto Heme SS MCHC (RBC) [Mass/Vol] 33.4 G/dL Invalid Interpretation Code 31.8 - 35.4 G/dL AO Auto Heme SS MCV (RBC) [Entitic vol] 88.6 fL Invalid Interpretation Code 80.0 - 94.0 fL AO Auto Heme SS Monocyte %, Manual 6.0 1 Invalid Interpretation Code 1.7 - 13.0 % AO Auto Heme SS Monocyte, Abs Manual 0.43 103/mcL Invalid Interpretation Code 0.15 - 1.00 10^3/mcL AO Auto Heme SS Neutrophil %, Manual 63.0 1 Invalid Interpretation Code 37.0 - 80.0 % AO Auto Heme SS Neutrophil, Abs Manual 4.68 103/mcL Invalid Interpretation Code 2.85 - 6.16 10^3/mcL AO Auto Heme SS Platelet Estimate Normal (08/01/21 12:33 PM) Invalid Interpretation Code AO Auto Heme SS Platelet mean volume (Bld) [Entitic vol] 8.7 fL Invalid Interpretation Code 7.4 - 10.4 fL AO Auto Heme SS Platelets (Bld) [#/Vol] 258 103/mcL Invalid Interpretation Code 130 - 400 10^3/mcL AO Auto Heme SS RBC (Bld) [#/Vol] 4.15 106/mcL Invalid Interpretation Code 4.04 - 6.13 10^6/mcL AO Auto Heme SS WBC (Bld) [#/Vol] 7.20 103/mcL Invalid Interpretation Code 4.60 - 10.80 10^3/mcL AO Auto Heme SS LABORATORYOrdered By: SYSTEM SYSTEM on 08-01-2021 GFR 61 ml/min/1.73sqm Invalid Interpretation Code AO Chemistry S GFR Non- 50 ml/min/1.73sqm Invalid Interpretation Code AO Chemistry S LABORATORYOrdered By: Merced Perrin on 07-21-2021 ADMITTED TO INTENSIVE CARE UNIT FOR CONDITION OF INTEREST:FIND:PT:^PAT IENT:ORD: No (07/21/21 1:50 PM) Invalid Interpretation Code AO Auto Urine SS EMPLOYED IN A HEALTHCARE SETTING:FIND:PT:^ABHIJEET ENT:ORD: No (07/21/21 1:50 PM) Invalid Interpretation Code AO Auto Urine SS FIRST TEST FOR CONDITION OF INTEREST:FIND:PT:^PAT IENT:ORD: Yes (07/21/21 1:50 PM) Invalid Interpretation Code AO Auto Urine SS HAS SYMPTOMS RELATED TO CONDITION OF INTEREST:FIND:PT:^PAT IENT:ORD: Yes (07/21/21 1:50 PM) Invalid Interpretation Code AO Auto Urine SS Illness or injury onset date and time [id number] Invalid Interpretation Code AO Auto Urine SS Patient was hospitalized because of this condition No (07/21/21 1:50 PM) Invalid Interpretation Code AO Auto Urine SS status Not (07/21/21 1:50 PM) Invalid Interpretation Code AO Auto Urine SS RESIDES IN A CONGREGATE CARE SETTING:FIND:PT:^ABHIJEET ENT:ORD: No (07/21/21 1:50 PM) Invalid Interpretation Code AO Auto Urine SS SARS-CoV-2 (COVID-19) RNA SULY+probe Ql (Resp) Negative (07/21/21 1:50 PM) Invalid Interpretation Code Negative AO Auto Urine SS SARS-CoV-2 (COVID-19) RNA SULY+probe Ql (Unsp spec) Negative results do not preclude SARS-CoV-2 infection and should not be used as the sole basis for patient management decisions. Negative results must be combined with clinical observations, patient history, and epidemiological information.There is a risk of false negative values resulting from improperly collected, transported, or handled specimens.There is a risk of false negative values due to the presence of sequence variants in the pathogen targets of the assay, procedural errors, amplification inhibitors in specimens, or inadequate numbers of organisms for amplification.DEBBIE SARS-CoV-2 Assay is a Real-Time reverse-transcriptase polymerase chain reaction (RT-PCR) based qualitative in vitro diagnostic test intended for the qualitative detection of nucleic acid from the SARS-CoV-2 in nasopharyngeal swab specimens collected from individuals suspected of COVID-19 by their healthcare provider. Testing is limited to laboratories certified under the Clinical Laboratory Improvement Amendments of 1988 (CLIA), 42 U.S.C. 263a, to perform moderate and high complexity tests. Invalid Interpretation Code AO Auto Urine SS LABORATORYOrdered By: Petros Chavira on 07-21-2021 Appearance (U) Clear (07/21/21 1:50 PM) Invalid Interpretation Code Clear AO Auto Urine SS Bilirubin Ql (U) Negative (07/21/21 1:50 PM) Invalid Interpretation Code Negative AO Auto Urine SS Color (U) Yellow (07/21/21 1:50 PM) Invalid Interpretation Code AO Auto Urine SS Glucose Test strip (U) [Mass/Vol] Negative Invalid Interpretation Code Negativemg/d L AO Auto Urine SS Hemoglobin Auto test strip (U) [Mass/Vol] Negative (07/21/21 1:50 PM) Invalid Interpretation Code Negative AO Auto Urine SS Ketones Ql (U) Negative Invalid Interpretation Code Negativemg/d L AO Auto Urine SS UA Leuk Est Negative (07/21/21 1:50 PM) Invalid Interpretation Code Negative AO Auto Urine SS UA Nitrite Negative (07/21/21 1:50 PM) Invalid Interpretation Code Negative AO Auto Urine SS UA pH 5.5 (07/21/21 1:50 PM) Invalid Interpretation Code 5.0 - 8.0 AO Auto Urine SS UA Protein Negative Invalid Interpretation Code Negativemg/d L AO Auto Urine SS UA Spec Grav 1.025 (07/21/21 1:50 PM) Invalid Interpretation Code 1.015-1.025 AO Auto Urine SS UA Specimen Type Void (07/21/21 1:50 PM) Invalid Interpretation Code AO Auto Urine SS UA Urobilinogen 0.2 E.U./dL Invalid Interpretation Code 0.2-1.0E.U./ dL AO Auto Urine SS LABORATORYOrdered By: Isa Lomeli on 07-21-2021 Basophil, Absolute 0.00 103/mcL Invalid Interpretation Code 0.00 - 0.19 10^3/mcL AO Auto Heme SS Basophils/100 WBC (Bld) 0.4 % Invalid Interpretation Code 0.0 - 2.5 % AO Auto Heme SS Calcium [Mass/Vol] 8.3 mg/dL Invalid Interpretation Code 8.4 - 10.2 mg/dL AO ADM SS Chloride [Moles/Vol] 106 mmol/L Invalid Interpretation Code 98 - 107 mmol/L AO ADM SS CO2 [Moles/Vol] 26 mmol/L Invalid Interpretation Code 23 - 31 mmol/L AO ADM SS Creatinine [Mass/Vol] 1.37 mg/dL Invalid Interpretation Code 0.70 - 1.30 mg/dL AO ADM SS Electrolyte Balance 10.0 mEq/L Invalid Interpretation Code AO ADM SS Eosinophil, Absolute 0.50 103/mcL Invalid Interpretation Code 0.00 - 0.40 10^3/mcL AO Auto Heme SS Eosinophils/100 WBC (Bld) 6.7 % Invalid Interpretation Code 0.0 - 7.0 % AO Auto Heme SS Erythrocyte distribution width (RBC) [Ratio] 14.0 % Invalid Interpretation Code 11.5 - 14.5 % AO Auto Heme SS Glucose [Mass/Vol] 142 mg/dL Invalid Interpretation Code 83 - 110 mg/dL AO ADM SS Hematocrit (Bld) [Volume fraction] 35.9 % Invalid Interpretation Code 42.0 - 52.0 % AO Auto Heme SS Hemoglobin (Bld) [Mass/Vol] 11.8 G/dL Invalid Interpretation Code 14.0 - 18.0 G/dL AO Auto Heme SS Lymphocyte, Absolute 1.60 103/mcL Invalid Interpretation Code 0.77 - 3.85 10^3/mcL AO Auto Heme SS Lymphocytes/100 WBC (Bld) 21.5 % Invalid Interpretation Code 10.0 - 50.0 % AO Auto Heme SS MCH (RBC) [Entitic mass] 29.3 pg Invalid Interpretation Code 27.0 - 31.2 pg AO Auto Heme SS MCHC (RBC) [Mass/Vol] 32.9 G/dL Invalid Interpretation Code 31.8 - 35.4 G/dL AO Auto Heme SS MCV (RBC) [Entitic vol] 89.0 fL Invalid Interpretation Code 80.0 - 94.0 fL AO Auto Heme SS Monocyte, Absolute 0.60 103/mcL Invalid Interpretation Code 0.15 - 1.00 10^3/mcL AO Auto Heme SS Monocytes/100 WBC (Bld) 7.7 % Invalid Interpretation Code 1.7 - 13.0 % AO Auto Heme SS Neutrophil, Absolute 4.80 103/mcL Invalid Interpretation Code 2.85 - 6.16 10^3/mcL AO Auto Heme SS Neutrophils/100 WBC (Bld) 63.7 % Invalid Interpretation Code 37.0 - 80.0 % AO Auto Heme SS Platelet mean volume (Bld) [Entitic vol] 8.3 fL Invalid Interpretation Code 7.4 - 10.4 fL AO Auto Heme SS Platelets (Bld) [#/Vol] 255 103/mcL Invalid Interpretation Code 130 - 400 10^3/mcL AO Auto Heme SS Potassium [Moles/Vol] 4.5 mmol/L Invalid Interpretation Code 3.5 - 5.1 mmol/L AO ADM SS RBC (Bld) [#/Vol] 4.03 106/mcL Invalid Interpretation Code 4.04 - 6.13 10^6/mcL AO Auto Heme SS Sodium [Moles/Vol] 142 mmol/L Invalid Interpretation Code 136 - 145 mmol/L AO ADM SS Troponin I.cardiac DL <= 0.01 ng/mL [Mass/Vol] 6.4 ng/L Invalid Interpretation Code 0.0 - 76.2 ng/L AO ADM SS Urea nitrogen [Mass/Vol] 25 mg/dL Invalid Interpretation Code 7 - 18 mg/dL AO ADM SS Urea nitrogen/Creatinine [Mass ratio] 18 ratio Invalid Interpretation Code 7 - 27 ratio AO ADM SS WBC (Bld) [#/Vol] 7.60 103/mcL Invalid Interpretation Code 4.60 - 10.80 10^3/mcL AO Auto Heme SS LABORATORYOrdered By: SYSTEM SYSTEM on 07-21-2021 GFR 60 ml/min/1.73sqm Invalid Interpretation Code AO Chemistry S GFR Non- 50 ml/min/1.73sqm Invalid Interpretation Code AO Chemistry S LABORATORYOrdered By: Isa Lomeli on 06-02-2021 Albumin BCP dye [Mass/Vol] 3.1 G/dL Invalid Interpretation Code 3.4 - 4.8 G/dL AO ADM SS Albumin/Globulin [Mass ratio] 0.8 {ratio} Invalid Interpretation Code 1.1 - 2.5 ratio AO ADM SS ALP [Catalytic activity/Vol] 141 U/L Invalid Interpretation Code 40 - 135 U/L AO ADM SS ALT With P-5'-P [Catalytic activity/Vol] 18 U/L Invalid Interpretation Code 16 - 63 U/L AO ADM SS AST With P-5'-P [Catalytic activity/Vol] 17 U/L Invalid Interpretation Code 10 - 40 U/L AO ADM SS Bilirubin [Mass/Vol] 0.4 mg/dL Invalid Interpretation Code 0.2 - 1.0 mg/dL AO ADM SS Calcium [Mass/Vol] 8.5 mg/dL Invalid Interpretation Code 8.4 - 10.2 mg/dL AO ADM SS Chloride [Moles/Vol] 105 mmol/L Invalid Interpretation Code 98 - 107 mmol/L AO ADM SS Cholesterol [Mass/Vol] 117 mg/dL Invalid Interpretation Code 0 - 200 mg/dL AO ADM SS Cholesterol in HDL [Mass/Vol] 36 mg/dL Invalid Interpretation Code 40 - 60 mg/dL AO ADM SS Cholesterol in LDL [Mass/Vol] 61 mg/dL Invalid Interpretation Code 0 - 130 mg/dL AO ADM SS CO2 [Moles/Vol] 29 mmol/L Invalid Interpretation Code 23 - 31 mmol/L AO ADM SS Creatinine [Mass/Vol] 1.44 mg/dL Invalid Interpretation Code 0.70 - 1.30 mg/dL AO ADM SS Electrolyte Balance 8.0 mEq/L Invalid Interpretation Code AO ADM SS Globulin 3.7 G/dL Invalid Interpretation Code AO ADM SS Glucose [Mass/Vol] 94 mg/dL Invalid Interpretation Code 83 - 110 mg/dL AO ADM SS HbA1c (Bld) [Mass fraction] 6.3 % Invalid Interpretation Code 4.3 - 6.4 % AO ADM SS Potassium [Moles/Vol] 4.6 mmol/L Invalid Interpretation Code 3.5 - 5.1 mmol/L AO ADM SS Protein [Mass/Vol] 6.8 G/dL Invalid Interpretation Code 6.4 - 8.2 G/dL AO ADM SS Sodium [Moles/Vol] 142 mmol/L Invalid Interpretation Code 136 - 145 mmol/L AO ADM SS Triglyceride [Mass/Vol] 102 mg/dL Invalid Interpretation Code 0 - 150 mg/dL AO ADM SS Urea nitrogen [Mass/Vol] 23 mg/dL Invalid Interpretation Code 7 - 18 mg/dL AO ADM SS Urea nitrogen/Creatinine [Mass ratio] 16 ratio Invalid Interpretation Code 7 - 27 ratio AO ADM SS Uric Acid Lvl 6.2 mg/dL Invalid Interpretation Code 3.5 - 7.2 mg/dL AO ADM SS Vit. D 25-Hydroxy 60.0 ng/mL Invalid Interpretation Code AO ADM SS LABORATORYOrdered By: Petros Chavira on 06-02-2021 Basophil, Absolute 0.00 103/mcL Invalid Interpretation Code 0.00 - 0.19 10^3/mcL AO Auto Heme SS Basophils/100 WBC (Bld) 0.6 % Invalid Interpretation Code 0.0 - 2.5 % AO Auto Heme SS Eosinophil, Absolute 0.40 103/mcL Invalid Interpretation Code 0.00 - 0.40 10^3/mcL AO Auto Heme SS Eosinophils/100 WBC (Bld) 5.3 % Invalid Interpretation Code 0.0 - 7.0 % AO Auto Heme SS Erythrocyte distribution width (RBC) [Ratio] 13.9 % Invalid Interpretation Code 11.5 - 14.5 % AO Auto Heme SS Hematocrit (Bld) [Volume fraction] 38.7 % Invalid Interpretation Code 42.0 - 52.0 % AO Auto Heme SS Hemoglobin (Bld) [Mass/Vol] 12.8 G/dL Invalid Interpretation Code 14.0 - 18.0 G/dL AO Auto Heme SS Lymphocyte, Absolute 2.00 103/mcL Invalid Interpretation Code 0.77 - 3.85 10^3/mcL AO Auto Heme SS Lymphocytes/100 WBC (Bld) 29.6 % Invalid Interpretation Code 10.0 - 50.0 % AO Auto Heme SS MCH (RBC) [Entitic mass] 30.1 pg Invalid Interpretation Code 27.0 - 31.2 pg AO Auto Heme SS MCHC (RBC) [Mass/Vol] 33.1 G/dL Invalid Interpretation Code 31.8 - 35.4 G/dL AO Auto Heme SS MCV (RBC) [Entitic vol] 90.8 fL Invalid Interpretation Code 80.0 - 94.0 fL AO Auto Heme SS Monocyte, Absolute 0.50 103/mcL Invalid Interpretation Code 0.15 - 1.00 10^3/mcL AO Auto Heme SS Monocytes/100 WBC (Bld) 7.6 % Invalid Interpretation Code 1.7 - 13.0 % AO Auto Heme SS Neutrophil, Absolute 3.80 103/mcL Invalid Interpretation Code 2.85 - 6.16 10^3/mcL AO Auto Heme SS Neutrophils/100 WBC (Bld) 56.9 % Invalid Interpretation Code 37.0 - 80.0 % AO Auto Heme SS Platelet mean volume (Bld) [Entitic vol] 8.7 fL Invalid Interpretation Code 7.4 - 10.4 fL AO Auto Heme SS Platelets (Bld) [#/Vol] 256 103/mcL Invalid Interpretation Code 130 - 400 10^3/mcL AO Auto Heme SS RBC (Bld) [#/Vol] 4.26 106/mcL Invalid Interpretation Code 4.04 - 6.13 10^6/mcL AO Auto Heme SS WBC (Bld) [#/Vol] 6.70 103/mcL Invalid Interpretation Code 4.60 - 10.80 10^3/mcL AO Auto Heme SS LABORATORYOrdered By: SYSTEM SYSTEM on 06-02-2021 GFR 57 ml/min/1.73sqm Invalid Interpretation Code AO Chemistry S GFR Non- 47 ml/min/1.73sqm Invalid Interpretation Code AO Chemistry S Parathyrin.intact [Mass/Vol] 97.0 pg/mL Invalid Interpretation Code 18.5 - 88.0 pg/mL AH ADM SS Vital Signs Date Time Vital Sign Value Performing Clinician Kendall cheung 02-12-2024 13:30-0400 Diastolic Blood Pressure Non-Invasive 71 mm[Hg] BRITTANY BATERS MULTISKILL OPERATOR-BUILDING PRINCIPAL [facility] 02-12-2024 13:30-0400 Heart rate 56 /min BRITTANY BATERS MULTISKILL OPERATOR-BUILDING PRINCIPAL [facility] 02-12-2024 13:30-0400 Respiratory rate 14 /min BRITTANY BATERS MULTISKILL OPERATOR-BUILDING PRINCIPAL [facility] 02-12-2024 13:30-0400 Systolic Blood Pressure Non-Invasive 149 mm[Hg] BRITTANY BATERS MULTISKILL OPERATOR-BUILDING PRINCIPAL [facility] 02-12-2024 13:15-0400 Diastolic Blood Pressure Non-Invasive 72 mm[Hg] BRITTANY BATERS MULTISKILL OPERATOR-BUILDING PRINCIPAL [facility] 02-12-2024 13:15-0400 Heart rate 54 /min BRITTANY BATERS MULTISKILL OPERATOR-BUILDING PRINCIPAL [facility] 02-12-2024 13:15-0400 Respiratory rate 14 /min BRITTANY BATERS MULTISKILL OPERATOR-BUILDING PRINCIPAL [facility] 02-12-2024 13:15-0400 Systolic Blood Pressure Non-Invasive 166 mm[Hg] BRITTANY BATERS MULTISKILL OPERATOR-BUILDING PRINCIPAL [facility] 02-12-2024 13:01-0400 Diastolic Blood Pressure Non-Invasive 70 mm[Hg] BRITTANY BATERS MULTISKILL OPERATOR-BUILDING PRINCIPAL [facility] 02-12-2024 13:01-0400 Heart rate 62 /min BRITTANY BATERS MULTISKILL OPERATOR-BUILDING PRINCIPAL [facility] 02-12-2024 13:01-0400 Respiratory rate 14 /min BRITTANY BATERS MULTISKILL OPERATOR-BUILDING PRINCIPAL [facility] 02-12-2024 13:01-0400 Systolic Blood Pressure Non-Invasive 154 mm[Hg] BRITTANY RODRIGUEZ MULTISKILL OPERATOR-BUILDING PRINCIPAL [facility] 02-12-2024 12:52-0400 Heart rate 60 /min BRITTANY IVYERS MULTISKILL OPERATOR-BUILDING PRINCIPAL [facility] 02-12-2024 12:40-0400 Heart rate 61 /min BRITTANY IVYERS MULTISKILL OPERATOR-BUILDING PRINCIPAL [facility] 02-12-2024 12:35-0400 Heart rate 61 /min BRITTANY IVYERS MULTISKILL OPERATOR-BUILDING PRINCIPAL [facility] 02-12-2024 10:04-0400 Blood Pressure Location BRITTANYYAQUELIN RODRIGUEZ MULTISKILL OPERATOR-BUILDING PRINCIPAL [facility] 02-12-2024 10:04-0400 Blood Pressure Method BRITTANY RODRIGUEZ MULTISKILL OPERATOR-C [employer]PORATE CLAIMS EXAMINER [facility] 02-12-2024 10:04-0400 Body temperature 97.7 [degF] BRITTANY HAYNESERS MULTISKILL OPERATOR-BUILDING PRINCIPAL [facility] 02-11-2024 15:05-0400 Body height 175.3 cm BRITTANY BATERS MULTISKILL OPERATOR-BUILDING PRINCIPAL [facility] 02-11-2024 15:05-0400 Body weight 82.2 kg BRITTANY IVYERS MULTISKILL OPERATOR-BUILDING PRINCIPAL [facility] 02-11-2024 15:05-0400 Body weight 26.75 kg/m2 BRITTANY IVYERS MULTISKILL OPERATOR-BUILDING PRINCIPAL [facility] 04-13-2022 15:03-0400 Diastolic blood pressure 66 mm[Hg] BRITTANY IVYERS MULTISKILL OPERATOR-BUILDING PRINCIPAL [facility] 04-13-2022 15:03-0400 Heart rate 60 /min BRITTANY IVYERS MULTISKILL OPERATOR-BUILDING PRINCIPAL [facility] 04-13-2022 15:03-0400 Mean blood pressure 87 mm[Hg] BRITTANY BATERS MULTISKILL OPERATOR-BUILDING PRINCIPAL [facility] 04-13-2022 15:03-0400 Respiratory rate 14 /min BRITTANY BATERS MULTISKILL OPERATOR-BUILDING PRINCIPAL [facility] 04-13-2022 15:03-0400 Systolic blood pressure 129 mm[Hg] BRITTANY BATERS MULTISKILL OPERATOR-BUILDING PRINCIPAL [facility] 04-13-2022 14:50-0400 Diastolic blood pressure 63 mm[Hg] BRITTANY BATERS MULTISKILL OPERATOR-BUILDING PRINCIPAL [facility] 04-13-2022 14:50-0400 Heart rate 58 /min BRITTANY BATERS MULTISKILL OPERATOR-BUILDING PRINCIPAL [facility] 04-13-2022 14:50-0400 Mean blood pressure 83 mm[Hg] BRITTANY BATERS MULTISKILL OPERATOR-BUILDING PRINCIPAL [facility] 04-13-2022 14:50-0400 Respiratory rate 14 /min BRITTANY BATERS MULTISKILL OPERATOR-BUILDING PRINCIPAL [facility] 04-13-2022 14:50-0400 Systolic blood pressure 122 mm[Hg] BRITTANY BATERS MULTISKILL OPERATOR-BUILDING PRINCIPAL [facility] 04-13-2022 14:35-0400 Diastolic blood pressure 64 mm[Hg] BRITTANY BATERS MULTISKILL OPERATOR-BUILDING PRINCIPAL [facility] 04-13-2022 14:35-0400 Heart rate 63 /min BRITTANY BATERS MULTISKILL OPERATOR-BUILDING PRINCIPAL [facility] 04-13-2022 14:35-0400 Mean blood pressure 83 mm[Hg] BRITTANY BATERS MULTISKILL OPERATOR-BUILDING PRINCIPAL [facility] 04-13-2022 14:35-0400 Respiratory rate 14 /min BRITTANY BATERS MULTISKILL OPERATOR-BUILDING PRINCIPAL [facility] 04-13-2022 14:35-0400 Systolic blood pressure 121 mm[Hg] BRITTANY RODRIGUEZ MULTISKILL OPERATOR-BUILDING PRINCIPAL [facility] 04-13-2022 12:02-0400 Body temperature 97.88 [degF] BRITTANY RODRIGUEZ MULTISKILL OPERATOR-BUILDING PRINCIPAL [facility] 04-13-2022 12:02-0400 diastolic 62 mm[Hg] BRITTANY MICHAEL MULTISKILL OPERATOR-BUILDING PRINCIPAL [facility] 04-13-2022 12:02-0400 Heart rate 80 /min BRITTANY RODRIGUEZ MULTISKILL OPERATOR-BUILDING PRINCIPAL [facility] 04-13-2022 12:02-0400 systolic 148 mm[Hg] BRITTANY MICHAEL MULTISKILL OPERATOR-BUILDING PRINCIPAL [facility] 04-12-2022 15:22-0400 Body height 175.3 cm BRITTANY RODRIGUEZ MULTISKILL OPERATOR-BUILDING PRINCIPAL [facility] 04-12-2022 15:22-0400 Body weight 77 kg BRITTANY RODRIGUEZ MULTISKILL OPERATOR-BUILDING PRINCIPAL [facility] 04-12-2022 15:22-0400 Body weight 25.06 kg/m2 BRITTANY RODRIGUEZ MULTISKILL OPERATOR-BUILDING PRINCIPAL [facility] 02-02-2022 07:46-0400 Body temperature 97.7 [degF] SP CARDENAS MULTISKILL OPERATOR-BUILDING PRINCIPAL [facility] 02-02-2022 07:46-0400 Diastolic blood pressure 69 mm[Hg] SP CARDENAS MULTISKILL OPERATOR-BUILDING PRINCIPAL [facility] 02-02-2022 07:46-0400 Heart rate 69 /min SP CARDENAS MULTISKILL OPERATOR-BUILDING PRINCIPAL [facility] 02-02-2022 07:46-0400 Reason For Taking VItal Signs SP GATESBAIRON MULTISKILL OPERATOR-BUILDING PRINCIPAL [facility] 02-02-2022 07:46-0400 Respiratory rate 18 /min SP CARDENAS MULTISKILL OPERATOR-BUILDING PRINCIPAL [facility] 02-02-2022 07:46-0400 Systolic blood pressure 117 mm[Hg] SP CARDENAS MULTISKILL OPERATOR-BUILDING PRINCIPAL [facility] 02-02-2022 04:20-0400 Body temperature 98.24 [degF] SP CARDENAS MULTISKILL OPERATOR-BUILDING PRINCIPAL [facility] 02-02-2022 04:20-0400 Diastolic blood pressure 67 mm[Hg] SP CARDENAS MULTISKILL OPERATOR-BUILDING PRINCIPAL [facility] 02-02-2022 04:20-0400 Heart rate 71 /min SP GATESBAIRON MULTISKILL OPERATOR-BUILDING PRINCIPAL [facility] 02-02-2022 04:20-0400 Reason For Taking VItal Signs SP CARDENAS MULTISKILL OPERATOR-BUILDING PRINCIPAL [facility] 02-02-2022 04:20-0400 Respiratory rate 18 /min SP CARDENAS MULTISKILL OPERATOR-BUILDING PRINCIPAL [facility] 02-02-2022 04:20-0400 Systolic blood pressure 143 mm[Hg] SP CARDENAS MULTISKILL OPERATOR-BUILDING PRINCIPAL [facility] 02-01-2022 19:01-0400 Body temperature 98.24 [degF] SP CARDENAS MULTISKILL OPERATOR-BUILDING PRINCIPAL [facility] 02-01-2022 19:01-0400 Diastolic blood pressure 65 mm[Hg] SP CARDENAS MULTISKILL OPERATOR-BUILDING PRINCIPAL [facility] 02-01-2022 19:01-0400 Heart rate 77 /min SP CARDENAS MULTISKILL OPERATOR-BUILDING PRINCIPAL [facility] 02-01-2022 19:01-0400 Mean blood pressure 91 mm[Hg] SP CARDENAS MULTISKILL OPERATOR-BUILDING PRINCIPAL [facility] 02-01-2022 19:01-0400 Reason For Taking VItal Signs SP CARDENAS MULTISKILL OPERATOR-BUILDING PRINCIPAL [facility] 02-01-2022 19:01-0400 Respiratory rate 18 /min SP CARDENAS MULTISKILL OPERATOR-BUILDING PRINCIPAL [facility] 02-01-2022 19:01-0400 Systolic blood pressure 143 mm[Hg] SP CARDENAS MULTISKILL OPERATOR-BUILDING PRINCIPAL [facility] 01-31-2022 16:08-0400 Mean blood pressure 84 mm[Hg] SP CARDENAS MULTISKILL OPERATOR-BUILDING PRINCIPAL [facility] 01-31-2022 07:10-0400 Heart rate 69 /min SP CARDENAS MULTISKILL OPERATOR-BUILDING PRINCIPAL [facility] 01-30-2022 14:39-0400 Mean blood pressure 85 mm[Hg] SP CARDENAS MULTISKILL OPERATOR-BUILDING PRINCIPAL [facility] 01-29-2022 12:35-0400 Heart rate 75 /min SP CARDENAS MULTISKILL OPERATOR-BUILDING PRINCIPAL [facility] 01-29-2022 11:32-0400 Body height 175.3 cm SP CARDENAS APRN-BUILDING PRINCIPAL [facility] 01-29-2022 11:32-0400 Body weight 84.1 kg SP CARDENAS MULTISKILL OPERATOR-BUILDING PRINCIPAL [facility] 01-29-2022 11:32-0400 Body weight 27.37 kg/m2 SP CARDENAS MULTISKILL OPERATOR-BUILDING PRINCIPAL [facility] 01-29-2022 07:22-0400 Body height 175.3 cm SP CARDENAS APRN-BUILDING PRINCIPAL [facility] 01-29-2022 07:22-0400 Body weight 84.1 kg SP CARDENAS MULTISKILL OPERATOR-BUILDING PRINCIPAL [facility] 01-29-2022 07:22-0400 Heart rate 93 /min PS CARDENAS MULTISKILL OPERATOR-BUILDING PRINCIPAL [facility] 12-28-2021 11:30-0400 Body temperature 99.86 [degF] BALBIR STOVALL MD [facility] 12-28-2021 11:30-0400 Diastolic blood pressure 59 mm[Hg] BALBIR STOVALL MD [facility] 12-28-2021 11:30-0400 Heart rate 75 /min BALBIR STOVALL MD [facility] 12-28-2021 11:30-0400 Mean blood pressure 75 mm[Hg] BALBIR STOVALL MD [facility] 12-28-2021 11:30-0400 Reason For Taking VItal Signs BALBIR STOVALL MD [facility] 12-28-2021 11:30-0400 Respiratory rate 16 /min BABLIR STOVALL MD [facility] 12-28-2021 11:30-0400 Systolic blood pressure 108 mm[Hg] BALBIR STOVALL MD [facility] 12-18-2021 10:20-0400 Diastolic Blood Pressure NBP [address] MELL MERCADO MD [facility] 12-18-2021 10:20-0400 Heart rate 62 /min DR MELL MERCADO MD [facility] 12-18-2021 10:20-0400 Respiratory rate 15 /min DR MELL MERCADO MD [facility] 12-18-2021 10:20-0400 Systolic Blood Pressure NBP [address] MELL MERCADO MD [facility] 12-18-2021 10:15-0400 Diastolic Blood Pressure NBP [address] MELL MERCADO MD [facility] 12-18-2021 10:15-0400 Heart rate 74 /min DR MELL MERCADO MD [facility] 12-18-2021 10:15-0400 Respiratory rate 16 /min DR MELL MERCADO MD [facility] 12-18-2021 10:15-0400 Systolic Blood Pressure NBP [address] MELL MERCADO MD [facility] 12-18-2021 10:10-0400 Diastolic Blood Pressure NBP [address] MELL MERCADO MD [facility] 12-18-2021 10:10-0400 Heart rate 59 /min DR MELL MERCADO MD [facility] 12-18-2021 10:10-0400 Respiratory rate 13 /min DR MELL MERCADO MD [facility] 12-18-2021 10:10-0400 Systolic Blood Pressure NBP [address] MELL MERCADO MD [facility] 12-18-2021 10:01-0400 Body temperature 96.98 [degF] DR MELL MERCADO MD [facility] 12-18-2021 08:19-0400 Body height 175.[address] MELL MERCADO MD [facility] 12-18-2021 08:19-0400 Body weight 81.[address] MELL MECRADO MD [facility] 12-18-2021 08:19-0400 Body weight 26.62 kg/m2 DR MELL MERCADO MD [facility] 12-18-2021 08:09-0400 Body temperature 97.34 [degF] DR MELL MERCADO MD [facility] 12-18-2021 08:09-0400 Heart rate 75 /min DR MELL MERCADO MD [facility] 11-21-2021 15:14-0400 Diastolic blood pressure 66 mm[Hg] CHRISTIANO ROGERS MD [facility] 11-21-2021 15:14-0400 Heart rate 62 /min CHRISTIANO ROGERS MD [facility] 11-21-2021 15:14-0400 Reason For Taking VItal Signs CHRISTIANO ROGERS MD [facility] 11-21-2021 15:14-0400 Respiratory rate 16 /min CHRISTIANO ROGERS MD [facility] 11-21-2021 15:14-0400 Systolic blood pressure 128 mm[Hg] CHRISTIANO ROGERS MD [facility] 11-21-2021 13:50-0400 Diastolic blood pressure 58 mm[Hg] CHRISTIANO ROGERS MD [facility] 11-21-2021 13:50-0400 Heart rate 64 /min CHRISTIANO ROGERS MD [facility] 11-21-2021 13:50-0400 Reason For Taking VItal Signs CHRISTIANO ROGERS MD [facility] 11-21-2021 13:50-0400 Respiratory rate 16 /min CHRISTIANO ROGERS MD [facility] 11-21-2021 13:50-0400 Systolic blood pressure 134 mm[Hg] CHRISTIANO ROGERS MD [facility] 11-21-2021 12:32-0400 Diastolic blood pressure 61 mm[Hg] CHRISTIANO ROGERS MD [facility] 11-21-2021 12:32-0400 Heart rate 60 /min CHRISTIANO ROGERS MD [facility] 11-21-2021 12:32-0400 Reason For Taking VItal Signs CHRISTIANO ROGERS MD [facility] 11-21-2021 12:32-0400 Respiratory rate 16 /min CHRISTIANO ROGERS MD [facility] 11-21-2021 12:32-0400 Systolic blood pressure 127 mm[Hg] CHRISTIANO ROGERS MD [facility] 11-21-2021 10:04-0400 Body height 175.3 cm CHRISTIANO ROGERS MD [facility] 11-21-2021 10:04-0400 Body temperature 97.88 [degF] CHRISTIANO ROGERS MD [facility] 11-21-2021 10:04-0400 Body weight 81.8 kg CHRISTIANO ROGERS MD [facility] 09-08-2021 12:04-0500 Body temperature 97.7 [degF] MOHINI GUAN APRN-BUILDING PRINCIPAL [facility] 09-08-2021 12:04-0500 Diastolic blood pressure 65 mm[Hg] MOHINI GUAN APRN-BUILDING PRINCIPAL [facility] 09-08-2021 12:04-0500 Heart rate 86 /min MOHINI GUAN APRN-BUILDING PRINCIPAL [facility] 09-08-2021 12:04-0500 Reason For Taking VItal Signs MOHINI GUAN MULTISKILL OPERATOR-BUILDING PRINCIPAL [facility] 09-08-2021 12:04-0500 Respiratory rate 18 /min MOHINI GUAN MULTISKILL OPERATOR-BUILDING PRINCIPAL [facility] 09-08-2021 12:04-0500 Systolic blood pressure 132 mm[Hg] MOHINI GUAN MULTISKILL OPERATOR-BUILDING PRINCIPAL [facility] 09-08-2021 07:44-0500 Body temperature 98.06 [degF] MOHINI GUAN MULTISKILL OPERATOR-BUILDING PRINCIPAL [facility] 09-08-2021 07:44-0500 Diastolic blood pressure 63 mm[Hg] MOHINI GUAN MULTISKILL OPERATOR-BUILDING PRINCIPAL [facility] 09-08-2021 07:44-0500 Heart rate 63 /min MOHINI GUAN MULTISKILL OPERATOR-BUILDING PRINCIPAL [facility] 09-08-2021 07:44-0500 Reason For Taking VItal Signs MOHINI GUAN MULTISKILL OPERATOR-BUILDING PRINCIPAL [facility] 09-08-2021 07:44-0500 Respiratory rate 18 /min MOHINI GUAN MULTISKILL OPERATOR-BUILDING PRINCIPAL [facility] 09-08-2021 07:44-0500 Systolic blood pressure 125 mm[Hg] MOHINI CHINGN MULTISKILL OPERATOR-BUILDING PRINCIPAL [facility] 09-08-2021 03:31-0500 Body temperature 98.06 [degF] MOHINI ROSADOVINNY MULTISKILL OPERATOR-BUILDING PRINCIPAL [facility] 09-08-2021 03:31-0500 Diastolic blood pressure 65 mm[Hg] MOHINIRYLAND ROSADOVINNY MULTISKILL OPERATOR-BUILDING PRINCIPAL [facility] 09-08-2021 03:31-0500 Heart rate 68 /min MOHINIRYLAND ROSADOVINNY MULTISKILL OPERATOR-BUILDING PRINCIPAL [facility] 09-08-2021 03:31-0500 Mean blood pressure 83 mm[Hg] MOHINI ALONZOVINNY MULTISKILL OPERATOR-BUILDING PRINCIPAL [facility] 09-08-2021 03:31-0500 Reason For Taking VItal Signs MOHINIRYLAND ROSADOVINNY MULTISKILL OPERATOR-BUILDING PRINCIPAL [facility] 09-08-2021 03:31-0500 Respiratory rate 20 /min MOHINIRYLAND ROSADOVINNY MULTISKILL OPERATOR-BUILDING PRINCIPAL [facility] 09-08-2021 03:31-0500 Systolic blood pressure 120 mm[Hg] MOHINIRYLAND ROSADOVINNY MULTISKILL OPERATOR-BUILDING PRINCIPAL [facility] 09-08-2021 00:03-0500 Heart rate 73 /min MOHINIRYLAND ROSADOVINNY MULTISKILL OPERATOR-BUILDING PRINCIPAL [facility] 09-07-2021 19:30-0500 Mean blood pressure 89 mm[Hg] MOHINI GUAN MULTISKILL OPERATOR-BUILDING PRINCIPAL [facility] 09-06-2021 23:25-0500 Heart rate 70 /min MOHINI GUAN MULTISKILL OPERATOR-BUILDING PRINCIPAL [facility] 09-06-2021 23:25-0500 Mean blood pressure 89 mm[Hg] MOHINI GUAN MULTISKILL OPERATOR-BUILDING PRINCIPAL [facility] 09-06-2021 18:59-0500 Heart rate 73 /min MOHINI GUAN MULTISKILL OPERATOR-BUILDING PRINCIPAL [facility] 09-05-2021 10:05-0500 Body height 175.3 cm MOHINI GUAN APRN-BUILDING PRINCIPAL [facility] 09-05-2021 10:05-0500 Body weight 84.1 kg MOHINI GUAN APRN-BUILDING PRINCIPAL [facility] 09-05-2021 10:05-0500 Body weight 27.37 kg/m2 MOHINI GUAN MULTISKILL OPERATOR-BUILDING PRINCIPAL [facility] 07-21-2021 17:51-0500 Diastolic blood pressure 66 mm[Hg] TRELL DELGADO MD [facility] 07-21-2021 17:51-0500 Heart rate 66 /min TRELL DELGADO MD [facility] 07-21-2021 17:51-0500 Respiratory rate 18 /min TRELL DELGADO MD [facility] 07-21-2021 17:51-0500 Systolic blood pressure 124 mm[Hg] TRELL DELGADO MD [facility] 07-21-2021 17:05-0500 Diastolic blood pressure 80 mm[Hg] TRELL DELGADO MD [facility] 07-21-2021 17:05-0500 Heart rate 67 /min TRELL DELGADO MD [facility] 07-21-2021 17:05-0500 Respiratory rate 16 /min TRELL DELGADO MD [facility] 07-21-2021 17:05-0500 Systolic blood pressure 122 mm[Hg] TRELL DELGADO MD [facility] 07-21-2021 16:11-0500 Diastolic blood pressure 61 mm[Hg] TRELL DELGADO MD [facility] 07-21-2021 16:11-0500 Heart rate 62 /min TRELL DELGADO MD [facility] 07-21-2021 16:11-0500 Respiratory rate 14 /min TRELL DELGADO MD [facility] 07-21-2021 16:11-0500 Systolic blood pressure 121 mm[Hg] TRELL DELGADO MD [facility] 07-21-2021 15:31-0500 Heart rate 63 /min TRELL DELGADO MD [facility] 07-21-2021 13:27-0500 Body height 175 cm TRLEL DELGADO MD [facility] 07-21-2021 13:27-0500 Body temperature 97.88 [degF] TRELL DELGADO MD [facility] 07-21-2021 13:27-0500 Body weight 84 kg TRELL DELGADO MD [facility] 07-21-2021 13:27-0500 diastolic 48 mm[Hg] TRELL DELGADO MD [facility] 07-21-2021 13:27-0500 Heart rate 45 /min TRELL DELGADO MD [facility] 07-21-2021 13:27-0500 systolic 138 mm[Hg] TRELL DELGADO MD [facility] Encounters Encounter Date Encounter Type Care Provider Facility Start: 06-17-2025 ambulatory Sp Pope Facility: [facility] Start: 06-08-2025 End: 06-08-2025 ambulatory Merly Pedroza NP Facility:[facility] Start: 06-03-2025 ambulatory DELBERT CHAKRABORTY MD Facili ty:A Start: 05-18-2025 End: 05-18-2025 ambulatory SP HALKO DO Facility:[facility] Start: 05-18-2025 End: 05-18-2025 Patient encounter procedure PS HALKO DO [facility] Start: 05-17-2025 End: 05-17-2025 ambulatory SP NORRISKO DO Facility:[facility] Start: 05-17-2025 End: 05-17-2025 Patient encounter procedure SP HALKO DO [facility] Start: 04-19-2025 End: 04-19-2025 ambulatory SP POPE DO Facility:[facility] Start: 04-19-2025 End: 04-19-2025 Patient encounter procedure SP HALKO DO [facility] Start: 03-23-2025 ambulatory SP PISANOKO DO Facili ty:A Start: 02-19-2025 End: 02-19-2025 ambulatory SP PISANOKO DO Facility:[facility] Start: 02-19-2025 End: 02-19-2025 Patient encounter procedure SP PISANOKO DO [facility] Start: 02-18-2025 End: 02-18-2025 ambulatory RAJ ANSARI Facility:[facility] Start: 02-18-2025 End: 02-18-2025 Patient encounter procedure RANDY CAMACHO MULTISKILL OPERATOR-BUILDING PRINCIPAL [facility] Start: 01-07-2025 End: 01-07-2025 ambulatory SP POPE DO Facility:[facility] Start: 01-07-2025 End: 01-07-2025 Patient encounter procedure SP PISANOKO DO [facility] Start: 09-15-2024 End: 09-19-2024 ambulatory SP PISANOKO DO Facility:[facility] Start: 09-15-2024 End: 09-19-2024 Encounter for general adult medical examination without abnormal findings DINAH CHAMBERS DO Facility:[facility] Start: 09-15-2024 End: 09-19-2024 Outreach Lab DINAH CHAMBERS DO [facility] Start: 09-15-2024 End: 09-15-2024 ambulatory SP POPE DO Facility:[facility] Start: 09-15-2024 End: 09-15-2024 Patient encounter procedure DINAH Sly CHAMBERS DO [facility] Start: 08-24-2024 End: 08-28-2024 ambulatory SP PISANOKO DO Facility:[facility] Start: 08-24-2024 End: 08-28-2024 Outreach Lab DINAH CHAMBERS DO [facility] Start: 04-29-2024 End: 04-29-2024 Patient encounter procedure PS PISANOKO DO [facility] Start: 02-25-2024 ambulatory RANDY MARCIALRIVERA RATLIFFKIN MULTISKILL OPERATOR-BUILDING PRINCIPAL Facility:[facility] Start: 02-12-2024 End: 02-12-2024 ambulatory BRITTANY RODRIGUEZ MULTISKILL OPERATOR-BUILDING PRINCIPAL Facility:[facility] Start: 02-12-2024 End: 02-12-2024 Patient encounter procedure BRITTANY RODRIGUEZ MULTISKILL OPERATOR-BUILDING PRINCIPAL [facility] Start: 01-01-2024 End: 01-01-2024 ambulatory SP POPE DO Facility:[facility] Start: 01-01-2024 End: 01-01-2024 Patient encounter procedure SP NORRISKO DO [facility] Start: 12-02-2023 End: 12-02-2023 Preprocedural examination done ESTUARDO DUNBAR MD [facility] Start: 12-02-2023 End: 12-02-2023 ambulatory ESTUARDO CANNONCHRIS Facility:[facility] Start: 12-02-2023 End: 12-02-2023 Patient encounter procedure RANDY CAMACHO MULTISKILL OPERATOR-BUILDING PRINCIPAL [facility] Start: 10-22-2023 End: 10-22-2023 ambulatory SP HALKO DO Facility:[facility] Start: 10-22-2023 End: 10-22-2023 Patient encounter procedure SP HALKO DO [facility] Start: 10-15-2023 End: 10-15-2023 ambulatory SP HALKO DO Facility:[facility] Start: 10-15-2023 End: 10-15-2023 Patient encounter procedure SP HALKO DO [facility] Start: 10-14-2023 End: 10-14-2023 ambulatory SP HALKO DO Facility:[facility] Start: 10-14-2023 End: 10-14-2023 Patient encounter procedure SP HALKO DO [facility] Start: 10-02-2023 End: 10-02-2023 ambulatory SP HALKO DO Facility:[facility] Start: 10-02-2023 End: 10-02-2023 Patient encounter procedure SP HALKO DO [facility] Start: 04-29-2023 End: 04-29-2023 ambulatory RANDY CAMACHO MULTISKILL OPERATOR-BUILDING PRINCIPAL Facility:B Start: 04-29-2023 End: 04-29-2023 Patient encounter procedure RANDY CAMACHO MULTISKILL OPERATOR-BUILDING PRINCIPAL [facility] Start: 04-09-2023 End: 04-09-2023 ambulatory SP HALKO DO Facility:B Start: 04-09-2023 End: 04-09-2023 Patient encounter procedure SP HALKO DO [facility] Start: 10-02-2022 End: 10-06-2022 Outreach Lab SP POPE DO [facility] Start: 04-13-2022 End: 04-13-2022 Patient encounter procedure BRITTANY RODRIGUEZ MULTISKILL OPERATOR-BUILDING PRINCIPAL [facility] Start: 03-29-2022 End: 03-29-2022 Patient encounter procedure DELBERT CHAKRABORTY MD [facility] Start: 02-22-2022 End: 02-22-2022 Patient encounter procedure RANDY CAMACHO MULTISKILL OPERATOR-BUILDING PRINCIPAL [facility] Start: 01-29-2022 End: 02-02-2022 Evaluation and management of inpatient SP CARDENAS MULTISKILL OPERATOR-BUILDING PRINCIPAL [facility] Start: 12-28-2021 End: 12-28-2021 SAME DAY STAY BALBIR STOVALL MD [facility] Start: 12-18-2021 End: 12-18-[address] MELL MERCADO MD [facility] Start: 12-12-2021 End: 12-12-2021 Patient encounter procedure BALBIR STOVALL MD [facility] Start: 11-21-2021 End: 11-21-2021 Emergency department patient visit CHRISTIANO ROGERS MD [facility] Start: 11-01-2021 End: 11-01-2021 Patient encounter procedure BALBIR STOVALL MD [facility] Start: 09-05-2021 End: 09-08-2021 Evaluation and management of inpatient MOHINI GUAN MULTISKILL OPERATOR-BUILDING PRINCIPAL [facility] Start: 08-01-2021 End: 08-01-2021 Patient encounter procedure SP PPOE DO [facility] Start: 07-21-2021 End: 07-21-2021 Emergency department patient visit TRELL DELGADO MD [facility] Start: 06-22-2021 End: 06-22-2021 Patient encounter procedure SP POPE DO [facility] Start: 06-02-2021 End: 06-02-2021 Patient encounter procedure SP POPE DO [facility] Procedures Date Procedure Procedure Detail Performing Clinician Start: 02-12-2024 Biopsy SP TOSHIA DO Start: 11-11-2023 Nasal structure (body structure) SP TOSHIA DO Start: 10-22-2023 Echocardiography RANDY CAMACHO MULTISKILL OPERATOR-BUILDING PRINCIPAL Start: 10-15-2023 Cardiovascular stress testing RANDY CAMACHO MULTISKILL OPERATOR-BUILDING PRINCIPAL Start: 09-12-2019 Cholecystectomy SP POPE DO Start: 08-12-2004 Transurethral prostatectomy SP Mcconnell DO History of cholecystectomy S/P c holecystectomy( Confirmed ) SP POPE DO Intestinal obstructi on (disorder) BRITTANY RODRIGUEZ MULTISKILL OPERATOR-BUILDING PRINCIPAL Immunizations Immunization Date Immunization Notes Care Provider Nemo lew 11-23-2024 RSV vaccine preF3, recombinant SP POPE DO [facility] 07-28-2024 influenza, high dose seasonal, preservative-free; Translations: [Fluad PF Prefilled Syringe ] DINAH CHAMBERS DO [facility] 06-01-2024 SARS-CoV-2 (COVID-19 ) [id number] DINAH ROYINS DO [facility] 05-14-2023 influenza virus vaccine, unspecified formulation SP POPE DO [facility] 05-14-2023 [id number](tozinam era n 5y-11y)bi vac SP POPE DO [facility] 10-02-2022 COVID-19, mRNA, LNP- S, bivalent, PF, 50 mcg/0.5 mL dose; Translations: [Moderna COVID-19 Bivalent Booster Vaccine PF] SP POPE DO [facility] 10-02-2022 SARS-CoV-2 (CV19)mRNA-1273 bivalent vac; Translations: [Moderna COVID-19 Bivalent Booster Vaccine PF] SP POPE DO [facility] 06-12-2022 influenza, high dose seasonal, preservative-free SP POPE DO [facility] 12-12-2021 COVID-19, mRNA, LNP- S, PF, 100 mcg or 50 mcg dose; Translations: [Moderna COVID-19 Vaccine] BALBIR STOVALL MD [facility] 06-27-2021 COVID-19, mRNA, LNP- S, PF, 100 mcg/ 0.5 mL dose; Translations: [Moderna COVID-19 Vaccine] TRELL DELGADO MD [facility] 05-12-2021 influenza virus vaccine, unspecified formulation [facility] 03-01-2021 pneumococcal polysaccharide vaccine, 23 valent; Translations: [Pneumovax 23] SP POPE DO [facility] 10-03-2020 COVID-19, mRNA, LNP- S, PF, 100 mcg/ 0.5 mL dose; Translations: [Moderna COVID-19 Vaccine] SP NORRISSWETHA DO [facility] 09-05-2020 SARS-CoV-2 (COVID-19 ) mRNA-1273 vaccine SP NORRISSWETHA DO [facility] 05-26-2020 tetanus and diphther ia toxoids, adsorbed, preservative free, for adult use (5 Lf of tetanus toxoid and 2 Lf of diphtheria toxoid); Translations: [Tenivac] SP POPE DO [facility] 04-22-2020 pneumococcal conjuga te vaccine, 13 valent PS POPE DO [facility] 07-28-2019 influenza virus vaccine, unspecified formulation SP POPE DO [facility] 01-27-2019 pneumococcal conjuga te vaccine, 13 valent SP POPE DO [facility] 05-01-2018 influenza virus vaccine, unspecified formulation SP POPE DO [facility] 06-07-2017 influenza virus vaccine, unspecified formulation SP POPE DO [facility] 08-18-2015 influenza virus vaccine, unspecified formulation SP POPE DO [facility] 08-18-2015 zoster vaccine, live SP POPE DO [facility] 05-05-2010 hepatitis A vaccine, adult dosage SP POPE DO [facility] 05-05-2010 yellow fever vaccine SP POPE DO [facility] Payers Date Payer Category Payer Self-pay [id number] 2023 Medicare [id number] 2023 Unknown [id number] 2022 Medicare [id number] 2018 Private Health Insurance c [id number] 2018 Unknown [id number] 1936 Unknown [id number] 2.16.8 40.1.125335.3.579.2.627 1936 Unknown [id number] 2.16.8 40.1.890037.3.579.2.627 1936 Unknown [id number] 2.16.8 40.1.786957.3.579.2.627 1936 Unknown [id number] 2.16.8 40.1.122403.3.579.2.627 1936 Unknown [id number] 2.16.8 40.1.414966.3.579.2. 1936 Unknown [id number] 2.16.8 40.1.731819.3.579.2.627 1936 Unknown [id number] 2.16.8 40.1.767206.3.579.2.627 1936 Unknown [id number] 2.16.8 40.1.739745.3.579.2.7 1936 Unknown [id number] 2.16.8 40.1.656020.3.579.2.627 1936 Unknown [id number] 2.16.8 40.1.493306.3.579.2.627 1936 Unknown [id number] 2.16.8 40.1.369515.3.579.2.627 1936 Unknown [id number] 2.16.8 40.1.985888.3.579.2.627 1936 Unknown [id number] 2.16. 840.1.510762.3.579.2.62 1936 Unknown [id number] 2.16. 840.1.829917.3.579.2.627 1936 Unknown [id number] 2.16. 840.1.989622.3.579.2.627 1936 Unknown [id number] 2.16. 840.1.979082.3.579.2.627 1936 Unknown [id number] 2.16. 840.1.016704.3.579.2.627 1936 Unknown [id number] 2.16. 840.1.010298.3.579.2.627 1936 Unknown [id number] 2.16.8 40.1.859166.3.579.2.627 1936 Unknown [id number] 2.16.8 40.1.553814.3.579.2.627 1936 Unknown [id number] 2.16.8 40.1.822775.3.579.2.627 1936 Unknown [id number] 2.16.8 40.1.638413.3.579.2.627 1936 Unknown [id number] 2.16. 840.1.036092.3.579.2.627 1936 Unknown [id number] 2.16. 840.1.340831.3.579.2.627 Unknown [id number] 2.16.8 40.1.703218.3.579.2.462 Unknown [id number] 2.16.8 40.1.182565.3.579.2.462 Social History Date Type Detail Facility Start: 09-30-2019 End: 04-20-2025 Never smoked tobacco (finding) [facility] Sex Assigned At Male [facility] Sexual Orientation [facility] Start: 02-04-2019 Sex Male (finding) [facility] Functional Status Date Assessment Result Facility 02-12-2024 Functional Status Assistive Rosana ce None, Wheelchair [facility] 02-12-2024 Functional Status Standard Safet y ID band on, Allergy Band on, Safety level maintained [facility] 02-12-2024 Functional Status [facility] 02-11-2024 Functional Status Sensory Deficits None [facility] 04-13-2022 Functional Status Independent [facility] 04-13-2022 Functional Status Standard Safet y ID band on, Allergy Band on [facility] 04-13-2022 Functional Status [facility] 04-12-2022 Functional Status Sensory Deficits None A [facility] 02-02-2022 Functional Status Room check performed [facility] 02-02-2022 [facility]-02[facility]ing [facility] Functional Status [facility] 02-01-2022 Functional Status Dinner Percent 100 [facility] 02-01-2022 Functional Status Demonstrates C orrect Call Light Use Yes [facility] 02-01-2022 Functional Status Lunch Percent 100 [facility] 02-01-2022 Functional [facility]-01-[facility]22 Functional Status [facility] 01-31-2022 Functional Status 15 [facility] 01-30-2022 Functional Status Ambulation in [facility] 01-30-2022 Functional [facility] Functional Status [facility] 01-29-2022 Functional Status 1st floor bedr oom, 1st floor bathroom [facility] 01-29-2022 Functional Status Sensory Deficits None [facility] 12-18-2021 Functional Status [facility] 12-18-2021 Functional Status [facility] 11-21-2021 Functional Status [facility] 11-21-2021 Functional Status [facility] 11-21-2021 Functional Status [facility] Mental Status Date Assessment Result Facility 02-12-2024 Mental Status Oriented x 4 [facility] 04-13-2022 Mental Status Orientation Oriented x 4 [facility] 04-13-2022 Mental Status [facility] 04-13-2022 Mental Status [facility] 02-02-2022 Mental Status Oriented x 4 [facility] 02-02-2022 Mental Status [facility] 02-01-2022 Mental Status [facility] 12-18-2021 Mental Status [facility] 12-18-2021 Mental Status [facility] 11-21-2021 Mental Status [facility] 11-21-2021 Mental Status [facility] Clinical Notes 07-21-2021 to 05-17-2025 Note Date & Type Note Facility 05-17-2025 Note Exam Date Time Procedure Performing Provider Status 05/17/25 12:44 PM NM Myocardial Spect Rest/Stress SYDNEY LYNN MD; Auth (Verified) [id number] ORIGINAL NM MYOCARDIAL SPECT STRESS/REST CLINICAL STATEMENT: chest pain at rest TECHNIQUE: Lexiscan dose: 0.4 mg Radiopharmaceutical (stress): Tc-99m Sestamibi Dose:26.2 mCi Radiopharmaceutical (rest): Tc-99m Sestamibi Dose:8.7 mCi SPECT acquisition and processing Reconstruction and reorientation of SPECT images into short axis, vertical and horizontal long axisplanes Quantitative LVEF assessment COMPARISON:none REPORT:Overall fair quality study. No significant coronary calcifications noted on accompanying CT images. Mild motion is noted on review of rotating raw images left ventricular ejection fraction is 64% left ventricular end-diastolic volume is 108 mL and TID ratio is 1.13. IMPRESSION: No evidence of ischemia or infarction. Normal left ventricular ejection fraction. ECG portion will be dictated separately. Interpreted By: Sydney Santa Preliminary Report By: Sydney Santa Electronically Signed By: Sydney Santa Dictated Date: 05/17/2025 6:29:40 PM Prelim Date: 05/17/2025 6:29:40 PM Sign Date: 05/17/2025 6:32:23 PM Ordering Provider:[facility]07-10-2025 Note* Exam Date Time Procedure Performing Provider Status 02/18/25 12:[address] Abdomen/Pelvis w/Contrast Daphnie DEWITT MD; Auth (Verified) [id number] ORIGINAL EXAMINATION: CT OF THE ABDOMEN AND PELVIS WITH CONTRAST 02/18/2025 1:26 pm TECHNIQUE: CT of the abdomen and pelvis was performed with the administration of intravenous contrast. Multiplanar reformatted images are provided for review. Automated exposure control, iterative reconstruction, and/or weight based adjustment of the mA/kV was utilized to reduce the radiation dose to as low as reasonably achievable. COMPARISON: December 02, 2023 HISTORY: ORDERING SYSTEM PROVIDED HISTORY: Reason for Exam: previous abn CT, mesenteric mass previous abn CT, mesenteric mass FINDINGS: Moderate degenerative changes are noted in the spine. 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 No acute osseous abnormality seen. Minimal areas of scarring are evident at the lung bases. Small sliding hiatal hernia noted. The gallbladder is not visible and may be contracted or absent. No focal liver lesion seen. The spleen, adrenal glands and pancreas are unremarkable. Scattered renal cysts are present. No other kidney finding. Lobulated mass lesion at the mesentery eccentric toward the left is again identified, slightly larger than on the prior exam. The bulk of the lesion is currently 4.7 x 3.1 cm, previously 3.8 x 2.2 cm. Right lower quadrant mesenteric adenopathy with some adjacent infiltrative change is again seen, and this is also slightly greater than on the prior exam. The largest discrete lymph node in this area is currently 1.6 cm, previously 1.1 cm. No new area of adenopathy is evident and there are no additional mesenteric lesions seen. 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 TURP defect seen. Mild sigmoid and left colon diverticulosis is evident, without diverticulitis. No other definite GI tract abnormality is visible. No additional contributory finding. IMPRESSION: 1. Slight interval increase in size of the mesenteric mass lesion since the prior exam. Neoplasm remains of concern. 2. Slight increase in right lower quadrant mesenteric adenopathy and infiltrative change. Neoplasm, including lymphoproliferative disorder, remains a consideration. 3. Diverticulosis without diverticulitis. Interpreted by: Sp Dewitt MD Preliminary Report By: Sp Dewitt MD Electronically signed By Sp Dewitt MD Dictated Date: 02/18/2025 1:50:53 PM Prelim Date: 02/18/2025 1:55:53 PM Sign Date: 02/18/2025 1:55:53 PM Ordering Provider: RANDY CAMACHO Interpreted by: Sp Dewitt MD Preliminary Report By: Sp Dewitt MD Electronically signed By Sp Dewitt MD Dictated Date: 02/18/2025 1:50:53 PM Prelim Date: 02/18/2025 1:55:53 PM Sign Date: 02/18/2025 1:55:53 PM Ordering Provider: RANDY JANICE [facility]02-07-2025 Note. MICRO - Microbiology PROCEDURE: Urine Culture [O1 *1] SOURCE: Urine BODY SITE: COLLECTED DATE/TIME: 09/15/2024 13:56 EST RECEIVED DATE/TIME: 09/16/2024 19:29 EST START DATE/TIME: 09/16/2024 19:29 EST FREE TEXT SOURCE: FINAL REPORTS Final Report [] Verified Date/Time/Personnel: 09/18/2024 08:40 EST >100,000 cfu/ml Aerococcus urinae Sensitivity testing is not recommended for one of the following reasons: 1. Established susceptibility patterns are available or 2. Interpretative criteria are not available. PRELIMINARY REPORTS Preliminary Report [] Verified Date/Time/Personnel: 09/17/2024 14:23 EST Culture results pending. SUSCEPTIBILITY RESULTS Aerococcus urinae Antibiotic ROSA MARIA Dilut ROSA MARIA Inter ID Panel Not Not Applicable Applicable Order Comments O1: Urine Culture Added by Discern Performing Locations *1: This test was performed at: [facility], [address] [place] [address], [address] [place], [place] [id number] Note. MICRO - Microbiology PROCEDURE: Urine Culture [*1] SOURCE: Urine, Clean Catch BODY SITE: COLLECTED DATE/TIME: 09/15/2024 13:56 EST RECEIVED DATE/TIME: 09/15/2024 18:57 EST START DATE/TIME: 09/15/2024 18:57 EST FREE TEXT SOURCE: FINAL REPORTS Final Report [] Verified Date/Time/Personnel: 09/17/2024 09:16 EST >100,000 cfu/ml Aerococcus urinae Sensitivity testing is not recommended for one of the following reasons: 1. Established susceptibility patterns are available or 2. Interpretative criteria are not available. PRELIMINARY REPORTS Preliminary Report [] Verified Date/Time/Personnel: 09/16/2024 14:35 EST Culture results pending. SUSCEPTIBILITY RESULTS Aerococcus urinae Antibiotic ROSA MARIA Dilut ROSA MARIA Inter ID Panel Not Not Applicable Applicable Performing Locations *1: This test was performed at: [facility], [address] [place] [address], [facility] , [facility]01-16-2025 Note. MICRO - Microbiology PROCEDURE: Urine Culture [*1] SOURCE: Urine, Clean Catch BODY SITE: COLLECTED DATE/TIME: 08/24/2024 17:46 EST RECEIVED DATE/TIME: 08/25/2024 14:46 EST START DATE/TIME: 08/25/2024 14:47 EST FREE TEXT SOURCE: FINAL REPORTS Final Report [] Verified Date/Time/Personnel: 08/27/2024 07:43 EST >100,000 cfu/ml Mixed growth consistent with normal urogenital johnathan. PRELIMINARY REPORTS Preliminary Report [] Verified Date/Time/Personnel: 08/26/2024 11:51 EST Culture results pending. Performing Locations *1: This test was performed at: [address], [facility] , [facility]07-03-2024 Hospital Discharge instructions Patient Education 02/12/2024 13:13:15 Radiology- CT Biopsy 11/29/2019 (CUSTOM) [place] Biopsy Discharge Instructions Interventional Radiology [facility] [address] [place] [address] Today, you had a biopsy of your abdomen. This procedure was done to help your doctor diagnose and treat the signs and symptoms you have been experiencing. These instructions should be followed after your procedure to reduce the chance of experiencing complications. Diet: Resume your normal diet as tolerated. Activity: Rest for the remainder of the day. You may resume your normal activity tomorrow. You may bathe/shower after 24 hours. Do not soak or submerge site (including swimming or hot tubs) until a scab forms. No heavy lifting, pushing, or straining. Dressing: Check the site for bleeding. Apply pressure to the site if bleeding excessively and call your physician. Change the band aid as needed; it can be removed after 24 hours. Keep the site dry at all times until a scab forms over the site. Pain Control: The puncture site may be sore for 1 to 2 days following the procedure. Dbne-ljo-cungdic pain medication should be used for pain or discomfort. Please check with the physician who ordered this procedure for you for their specific recommendations. If your pain is not relieved or becomes more severe, notify the physician who sent you for this procedure. If you were sedated for this procedure: Avoid alcoholic beverages for 24 hours after your procedure. Do not drive or operate heavy machinery for 24 hours after your procedure. Do not make any legal decisions for 24 hours after your procedure. Medication: Please resume medications as scheduled. When to seek medical help: Lightheadedness, dizziness, or fainting. Severe pain or swelling at the puncture site. Severe nausea or vomiting. Infection: fever greater than 101 degrees, chills, redness, warmth, swelling, bleeding, or pus frompuncture site. If you experience any of these issues during the first 24 hours, please follow the instruction below: First 24 hours call [phone] After 24 hours, contact the physician who ordered this procedure for you. Obtaining test results: Please make an appointment with your doctor to obtain your test results. They are usually availablewithin 4 to 7 business days. Do not assume everything is normal if you have not heard from your doctor or medical facility. It is important for you to follow up on all of your test results. 02/12/2024 13:10:46 Moderate Conscious Sedation, Adult, Care After Moderate Conscious Sedation, Adult, Care After These instructions provide you with information about caring for yourself after your procedure. Your health care provider may also give you more specific instructions. Your treatment has been plannedaccording to current medical practices, but problems sometimes occur. Call your health care provider if you have any problems or questions after your procedure. What can I expect after the procedure? After your procedure, it is common: To feel sleepy for several hours. To feel clumsy and have poor balance for several hours. To have poor judgment for several hours. To vomit if you eat too soon. Follow these instructions at home: For at least 24 hours after the procedure: Do not: ?Participate in activities where you could fall or become injured. ?Drive. ?Use heavy machinery. ?Drink alcohol. ?Take sleeping pills or medicines that cause drowsiness. ?Make important decisions or sign legal documents. ?Take care of children on your own. Rest. Eating and drinking Follow the diet recommended by your health care provider. If you vomit: ?Drink water, juice, or soup when you can drink without vomiting. ?Make sure you have little or no nausea before eating solid foods. General instructions Have a responsible adult stay with you until you are awake and alert. Take mgka-tog-elhrksd and prescription medicines only as told by your health care provider. If you smoke, do not smoke without supervision. Keep all follow-up visits as told by your health care provider. This is important. Contact a health care provider if: You keep feeling nauseous or you keep vomiting. You feel light-headed. You develop a rash. You have a fever. Get help right away if: You have trouble breathing. This information is not intended to replace advice given to you by your health care provider. Make sure you discuss any questions you have with your health care provider. Document Released: 05/19/2014 Document Revised: 07/11/2018 Document Reviewed: 11/17/2016 [employer] Patient Education [employer]. Follow Up Care 01/14/2024 07:11:25 With:DELBERT CHAKRABORTY MD, Surgery Address: [address] [place] [address]- [phone] When: Unknown Comments:Follow-up as needed Follow-up as scheduled With:DELBERT CHAKRABORTY MD, Surgery Address: [address] [place] [address] [phone] When: Unknown Comments:Follow-up as needed Follow-up as scheduled With:Go to emergency room if symptoms worsen Address:Unknown When: Unknown [facility] 07-03-2024 Note* CARMEN Woody: SIGN, AUTHOR, SIGN, AUTHOR, PERFORM Event Display: IR Procedure Record Authored Date: [id number] IR Procedure Record Summary Primary Physician: NIKIA GORE MD Finalized Date/Time: 02/12/24 13:04:03 Pt. Name: BLOSSOM BASS/Sex: 1935 Male [facility] Rec #: [id number] Physician: Financial #: [id number] Pt. Type: O Room/Bed: / Admit/Disch: 02/12/24 09:48:00 - Institution: Allergies identified in patient's electronic medical record at time of printing on 02/12/24 Entry 1 Substance penicillin Reaction Type Allergy Last Modified By: Apryl Newsome PharmTanya 09/05/21 11:46:00 Case Attendance- IR Entry 1 Entry 2 Entry 3 Case Attendee NIKIA GORE MD, CARMEN Proctor, [facility] Role Performed Primary Surgeon Procedure Nurse Environmental Sampling Technician Details Time In 02/12/24 11:43:00 02/12/24 11:45:00 02/12/24 11:45:00 Time Out 02/12/24 12:47:00 02/12/24 12:47:00 02/12/24 12:47:00 Procedure/Preference IR Biopsy Abdomen (SN) IR Biopsy Abdomen (SN) IR Biopsy Abdomen (SN) Card Last Modified By: CARMEN Woody RN Jennifer M Fichter, RN Jennifer M 02/12/24 12:53:25 02/12/24 12:53:25 02/12/24 12:53:25 Radiology Procedures- IR Entry 1 Procedure/Preference IR Biopsy Abdomen (SN) Actual Procedure ir biopsy abdomen Card Actual Procedure ct/ir abdominal biopsy Primary Procedure Yes Continued Primary Surgeon NIKIA GORE MD Anesthesia/Sedation IV Sedation, Local Type Additional Procedure Times Start 02/12/24 12:01:00 Stop 02/12/24 12:47:00 Specialty Service SN Radiology Procedure EBL 2 mL Last Modified By: CARMEN Woody 02/12/24 12:52:05 Radiology Procedure Details - IR Entry 1 Radiology Sedation Case Times Sedation Start Time 02/12/24 12:12:00 Sedation Stop Time 02/12/24 12:47:00 Sedation Total Time 35 minutes Radiology - Fluid/Drainage Fluid Amount mL: 0 Radiology Contrast Contrast Used? No Dose 0 Radiology Flouroscopy Fluoroscopy Used? Yes Fluoro Dose (mGy) 613.25 Fluoro Time 39.8 seconds Radiology Local Local Used? Yes Local Type: lidocaine 2% Local Dose 20cc Radiology Procedure Site Site/Location r abdomen Site Condition No complications Dressing Type Bandaids Technologist Notes successful abdominal biopsy patient tolerated gel foam used, d stat used Last Modified By: CARMEN Woody 02/12/24 12:56:13 Cultures and Specimens- IR Entry 1 Kind Specimen Type Mass Date/Time 02/12/24 12:32:00 Source r abdomen soft tissue mass x 16 core Last Modified By: CARMEN Woody 02/12/24 12:42:46 General Case Data - IR Entry 1 Case Information Room AH IR CT Case Level IR Level 2 Wound Class None Specialty SN Radiology Procedure ASA Class None Diagnosis Preop Diagnosis abdominal mesenteric Postop Same As Preop Yes mass biopsy Postop Diagnosis abdominal mesenteric mass biopsy Last Modified By: CARMEN Woody 02/12/24 11:54:59 Medication Administration- IR Entry 1 Entry 2 Entry 3 Medication versed fentanyl lidocaine 2% Time Administered 02/12/24 12:12:00 02/12/24 12:12:00 02/12/24 12:20:00 Route of Admin IV Push IV Push Local Dose 1mg 25mcg 20cc Volume 1 mL .5 mL 20 mL VORB * *Verbal Order Read Back (VORB) is required for NON- PHYSICIAN administration of medications. Administered by No No Yes Physician? Administered by: CARMEN Woody RN Jennifer M KAR, MITRYAN MD Verbal Order Read NIKIA GORE MD, MITRYAN MD Back from: Last Modified By: CARMEN Woody RN Jennifer M Fichter, RN Jennifer M 02/12/24 12:13:43 02/12/24 12:13:43 02/12/24 12:43:03 Entry 4 Entry 5 Entry 6 Medication versed fentanyl fentanyl Time Administered 02/12/24 12:17:00 02/12/24 12:17:00 02/12/24 12:22:00 Route of Admin IV Push IV Push IV Push Dose 1mg 25mcg 25mcg Volume 1 mL .5 mL .5 mL VORB * *Verbal Order Read Back (VORB) is required for NON- PHYSICIAN administration of medications. Administered by No No No Physician? Administered by: FichterCARMEN RN Jennifer M Fichter, RN Jennifer M Verbal Order Read NIKIA GORE MD, MITRYAN MD KAR, MITRYAN MD Back from: Last Modified By: CARMEN Woody RN Jennifer M Fichter, RN Jennifer M 02/12/24 12:24:33 02/12/24 12:24:33 02/12/24 12:24:33 Entry 7 Medication versed Time Administered 02/12/24 12:22:00 Route of Admin IV Push Dose 1mg Volume 1 mL VORB * *Verbal Order Read Back (VORB) is required for NON- PHYSICIAN administration of medications. Administered by No Physician? Administered by: CARMEN Woody Verbal Order Read NIKIA GORE MD Back from: Last Modified By: CARMEN Woody 02/12/24 12:24:33 Procedure Case Times- IR Entry 1 Patient In Procedure Patient In OR 02/12/24 11:45:00 Patient Out of OR 02/12/24 12:56:00 Procedure Start/Stop Procedure Start Time 02/12/24 12:01:00 Procedure Stop Time 02/12/24 12:47:00 Last Modified By: CARMEN Woody 02/12/24 12:56:21 Immediate Post Procedure Note - IR Entry 1 Immediate Post Yes Findings 16x18G cores of LUQ Procedure Note mesenteric lesion via displayed for RUQ approach Physician to review Closure Technique Closure Technique Other than Primary Last Modified By: CARMEN Woody 02/12/24 12:51:45 Immediate Post Procedure Note - IR Signed By: NIKIA GORE MD 02/12/24 12:51 Allergy Information- IR Entry 1 Allergies Reviewed? Yes Allergies Reviewed Medical Record With Last Modified By: CARMEN Woody 02/12/24 11:29:35 Radiology Protocols/Time Out- IR Entry 1 Preprocedure Clinician Verifies Correct patient ID When Clinically Consent for using name & date Indicated Administration of or MRN, Accurate Blood, Confirmation of procedure, complete correct side(s) and Informed Consent, H & P site(s), Correct update immediately diagnostic and prior to procedure, if radiology tests applicable available, Required blood products, implants, devices and/or special equipment available, Preop antibiotics sent with patient/available in OR OR/Procedure Room/Bedside Time 02/12/24 11:57:00 Clinician Verifies Correct patient identity including EMR & records using name and date or medical record number, Accurate procedure consent form, Correct patient position, Necessary equipment is available, Anticipated non-routine events with surgical team (case duration, estimated blood loss, patient specific concerns)., Hernandez patient factors for recovery and management identified with surgical team. When Applicable Consent for Team Members NIKIA GORE MD, Administration of Present for Time Out CARMEN Woody, Blood, Confirmation [facility] correct side and site marked, Relevant images and results are properly labeled and appropriately displayed, Confirm/obtain preop antibiotic order., Alcohol based prep dry, Double verification of sterility indicators complete Instrument Sterility Team Members NIKIA GORE MD, Esthela, Verifying Sterility [facility] Procedure IR Biopsy Abdomen (SN) Last Modified By: CARMEN Woody 02/12/24 11:56:31 Skin Prep- IR Entry 1 Procedure IR Biopsy Abdomen (SN) Skin Prep Prep Area Abdomen Side Medial, Right By NIKIA GORE MD Prep Agents Chloraprep Hair Removal Method N/A Last Modified By: CARMEN Woody 02/12/24 12:16:11 Patient Positioning- IR Entry 1 Procedure IR Biopsy Abdomen (SN) Body Position OP Left Lateral Feet Uncrossed? Yes Pressure Points Yes Checked Last Modified By: CARMEN Woody 02/12/24 12:14:08 Radiology Procedure Plan - IR Entry 1 Radiology - Nursing Care Plan Outcome Statement The patient Outcome Statement The patient receives demonstrates knowledge Cont. appropriate of the expected medication(s), safely responses to the administered during the operative/invasive perioperative/invasive procedure., The period., The patient is patient's value system, free from signs and lifestyle, ethnicity, symptoms of injury and culture are caused by extraneous considered, respected, objects (equipment, and incorporated in the instrumentation, perioperative plan of sponges, or sharps)., care., The patient is The patient is free free from signs and from signs and symptoms symptoms of infection., of electrical injury., The patient is free The patient is at or from signs and symptoms returning to of injury related to normothermia at the positioning., The conclusion of the patient is free from immediate signs and symptoms of postoperative/invasive chemical injury. period., The patient is free from signs and symptoms of laser injury. Radiology - Action Plan Outcomes Met? Yes Director Of Institutional Research CARMEN Woody Completing Procedure Plan Last Modified By: CARMEN Woody 02/12/24 11:32:28 Transfer Post Procedure- IR Entry 1 RAD - Transport to Recovery Patient Transported IV Via Stretcher With Post-op Destination Receiving Transported By CARMEN Woody Post Procedure Time Out Double Verification Yes Date/Time Verified 02/12/24 12:57:00 of ID band on patient Completed Verfied ID Band on CARMEN Woody by Last Modified By: CARMEN Woody 02/12/24 12:56:17 Case Comments <None> Finalized By: CARMEN Woody Document Signatures Signed By: CARMEN Woody 02/12/24 12:56 CARMEN Woody 02/12/24 13:04 [facility] 07-03-2024 Evaluation + Plan noteExtracted from: Title:IR Pre-Procedure H&P Author:SARAH SONI PA-C Date:02/12/24 Interventional Radiology Focused Preprocedure History/Physical Reason for Visit Mesenteric mass and lymph node History of Presenting Illness/Planned IR Procedure Hx enlarging mesenteric mass and abdominal lymphadenopathy. Presents for biopsy. Allergies (1) ActiveSeverityReaction penicillinrash/hives Home Medications (22) Active alfuzosin 10 mg oral tablet, extended release 10 mg = 1 tab(s), Oral, qDay allopurinol 100 mg oral tablet 100 mg = 1 tab(s), Oral, qDayPC amLODIPine 10 mg oral tablet 10 mg = 1 tab(s), Oral, qDay aspirin 81 mg oral delayed release tablet 81 mg = 1 tab(s), Oral, Saturday & Saturday beta-carotene 15 mg oral capsule 15 mg = 1 cap(s), Oral, qDay calcium (as carbonate) 600 mg oral tablet 1,200 mg = 2 tab(s), Oral, BIDM cholecalciferol 125 mcg (5000 intl units) oral capsule 125 mcg = 1 cap(s), Oral, qDay Citrucel 2 tab(s), Oral, BID Colcrys 0.6 mg oral tablet See Instructions, PRN Crestor 10 mg oral tablet 10 mg = 1 tab(s), Oral, qPM levothyroxine 100 mcg (0.1 mg) oral tablet 100 mcg = 1 tab(s), Oral, qDay lutein 40 mg, Oral, qDay meclizine 12.5 mg oral tablet 12.5 mg = 1 tab(s), PRN, Oral, q6h melatonin 10 mg oral capsule 5 mg = 0.5 cap(s), Oral, qHS MiraLax oral powder for reconstitution , Oral, qDay Ocuvite PreserVision 1 tab(s), Oral, BID omeprazole 40 mg oral delayed release capsule 40 mg = 1 cap(s), Oral, qDay Erin Antarctic Krill and Fish Oil Blend 500 mg oral capsule 1,000 mg = 2 cap(s), Oral, BID senna (sennosides) 8.6 mg oral tablet 8.6 mg = 1 tab(s), PRN, Oral, qHS Super enzymes 1 tab(s), Oral, TIDAC Vitamin C 1,000 mg, Oral, Daily Zoloft 100 mg oral tablet 50 mg = 0.5 tab(s), Oral, qPM Problem List/Past Medical History Abnormal CT scan Abnormal barium swallow Adynamic ileus Anemia of chronic disease Angina at rest BMI 26.0-26.9,adult BPH with urinary obstruction Back pain CKD (chronic kidney disease) stage 3, GFR 30-59 ml/min Cellulitis Cerumen impaction Cervical arthritis Change in bowel movement Diastasis recti Esophageal dysphagia First degree AV block GERD (gastroesophageal reflux disease) Glaucoma screening Gout Hard of hearing Hearing difficulty Hearing loss Hiatal hernia Hospital discharge follow-up Hyperlipidemia Hypertensive nephropathy Hypocalcemia Hypothyroidism Immunization due Jaundice Leg edema Leg swelling Lightheadedness Loss of hearing Major depression, single episode, in complete remission Medicare annual wellness visit, subsequent Mesenteric mass Mild intermittent asthma Near syncope Need for vaccination Night sweats CONNER treated with BiPAP Osteoarthritis of left hip Osteoporosis Osteoporosis screening Overweight Prediabetes Rash Rectus diastasis S/P cholecystectomy Screening due Screening for cardiovascular condition Seasonal allergies Secondary hyperparathyroidism Sinus congestion Small bowel obstruction Somatic dysfunction of lumbar region Somatic dysfunction of rib region UTI (urinary tract infection) Umbilical hernia Vertigo Vitamin D deficiency Surgical History Nose: 11/11/23 Echocardiogram: 10/22/23 Cardiovascular stress testin10/15/23 Cholecystectomy: 09/12/19 TURP - Transurethral resection of prostate: 08/12/04 Bowel obstruction Family History Mother: Heart disease; Stroke Sister: Lymphoma Social History Alcohol Details: Use: Past. Frequency: 1-2 times per year. Employment/School Details: Status: Retired. Exercise Details: Exercise type: Jogging/Running, Weight lifting. 1-2 times/week Days per week:. Home/Environment Details: Domestic Concerns: Denies. Living situation: Home with assistance. Lives In: Single level home, grab bars installed . Current Home Treatments Apnea monitoring. Professional Skilled Services or Special Community Resources None. Financial concerns: No. Spouse Name: Andrew. Marital Status: . Nutrition/Health Details: Type of diet: Regular. Appetite Good. Eating Difficulties Swallowing. Enteral Feedings No. TPN Feedings No. Skin Breakdown No. Caffeine intake amount: 1/2 cup coffee daily. Substance Abuse Details: Use: Never. Tobacco Details: Nicotine Use: Never (less than 100 in lifetime). Exposure to Tobacco Smoke Lives in non-smoking home. Physical Exam Vitals: Zyotraawyyz94.5 (10:04) Systolic Blood Zhggampm759 (10:08) Diastolic Blood Motkxsyg41 (10:08) Pulse74 (10:04) DxA343 (10:04) Respiratory RateNo result General: Alert, cooperative. Heart: Regular Lungs: Clear The remainder of the physical exam is noncontributory. Labs Anticoagulation Labs Protime: 12.2 seconds (02/12/24 10:13:00) PT International Ratio: 1.1 ratio (02/12/24 10:13:00) Last Month Basic Metabolic Panel: Hematology: Sodium Level: ------ Hgb: 13.1 (02/12/24) Potassium Level: ------ : () Phosphorus: ------ WBC: 6.7 (02/12/24) Magnesium Lvl: ------ Platelet: 238 (02/12/24) BUN: ------ PT International Ratio: 1.1 (02/12/24) Creatinine Lvl (s): 1.26 (02/12/24) : () Additional - Last Month Basophil %: 0.5 (02/12/24) Basophil, Absolute: 0.0 (02/12/24) Eosinophil %: 2.8 (02/12/24) Eosinophil, Absolute: 0.2 (02/12/24) GFR : >60 (02/12/24) GFR Non-: 54 (02/12/24) Hct: 38.9 (02/12/24) Lymphocyte %: 27.8 (02/12/24) Lymphocyte, Absolute: 1.9 (02/12/24) MCH: 30.1 (02/12/24) MCHC: 33.6 (02/12/24) MCV: 89.7 (02/12/24) Monocyte %: 6.9 (02/12/24) Monocyte, Absolute: 0.5 (02/12/24) MPV: 7.9 (02/12/24) Neutrophil %: 62.0 (02/12/24) Neutrophil, Absolute: 4.2 (02/12/24) Protime: 12.2 (02/12/24) RBC: 4.33 (02/12/24) RDW: 14.2 (02/12/24) Assessment/Treatment Plan CT guided abdominal mass biopsy. Post Procedure Discharge Plan Patient to be discharged home. Josie Soni PA-C Interventional Radiology Pager: [phone] dept: [phone] Available on [employer] Future Appointments Appointment Date:04/28/2024 09:00:00 AM Scheduled Provider:SP POPE DO Location:[facility] Appointment Type:[facility] Future Scheduled Tests Laboratory* Calcium Level Ionized 12/25/23 * Thyroid Stimulating Hormone 12/25/23 * Free T4 12/25/23 * Uric Acid 12/25/23 * A1C Hemoglobin 12/25/23 * Complete Blood Count 12/25/23 * Lipid Profile 12/25/23 * Albumin/Creatinine Ratio, Random Urine 12/25/23 * PTH, Intact 12/25/23 * Vitamin D Level 12/25/23 * Complete Metabolic Panel 12/25/23 [facility] 07-03-2024 Summary of episode note Discharge Instructions Thank you for allowing [facility] to assist you with your healthcare needs. The following is importantdischarge information regarding your hospital visit. Your Care Team SP POPE DO What to do next Scheduled Follow-Up Appointments Appointment Type When With Where Contact Information StatusPC OV 04/28/2024 09:00 AM EDT SP POPE DO [facility] [address] [id number] Confirmed Follow Up Appointments Follow Up with DELBERT CHAKRABORTY MD, Surgery Where:[address] [facility] [place] [address] [phone] Additional Information: Follow-up as needed Follow-up as scheduled Follow Up with Go to emergency room if symptoms worsen Allergies penicillin rash/hives Medications Please ask your primary doctor or pharmacist before taking any other medication not listed, including over the counter drugs, herbal medications, vitamins and or supplements as they may interact withyour home medications. What How Much When Instructions Last Dose Unchanged alfuzosin (alfuzosin 10 mg oral tablet, extended release) 1 tab(s) by mouth Once a day Duration: 90 Days Unchanged allopurinol (allopurinol 100 mg oral tablet) 1 tab(s) by mouth Once a day after a meal Duration: 90 Days Unchanged amLODIPine (amLODIPine 10 mg oral tablet) 1 tab(s) by mouth Once a day Duration: 90 Days Unchanged ascorbic acid (Vitamin C) 1,000 Milligram by mouth Every day Unchanged aspirin (aspirin 81 mg oral delayed release tablet) 1 tab(s) by mouth Every Saturday and Saturday Unchanged beta-carotene (beta-carotene 15 mg oral capsule) 1 cap by mouth Once a day Unchanged calcium carbonate (calcium (as carbonate) 600 mg oral tablet) 2 tab(s) by mouth Twice daily with meals Duration: 90 Days Unchanged cholecalciferol (cholecalciferol 125 mcg (5000 intl units) oral capsule) 1 cap by mouth Once a day Unchanged colchicine (Colcrys 0.6 mg oral tablet) See instructions take 2 0.6 tab(s) Oral qDay at the first sign of a gout flare followed by 0.6 mg one hour later, As needed for Gout pain Unchanged levothyroxine (levothyroxine 100 mcg (0.1 mg) oral tablet) 1 tab(s) by mouth Once a day Duration: 90 Days Unchanged lutein 40 Milligram by mouth Once a day Unchanged meclizine (meclizine 12.5 mg oral tablet) 1 tab(s) by mouth Every 6 hours as needed for as needed for dizziness Unchanged melatonin (melatonin 10 mg oral capsule) 0.5 cap by mouth Daily at bedtime Unchanged methylcellulose (Citrucel) 2 tab(s) by mouth Two (2) times a day Unchanged Misc Medication (Super enzymes) 1 tab(s) by mouth Three (3) times a day before meals Unchanged multivitamin with minerals (Ocuvite PreserVision) 1 tab(s) by mouth Two (2) times a day Takes at 9 AM and 12 PM Unchanged omega-3 polyunsaturated fatty acids (Erin Antarctic Krill and Fish Oil Blend 500 mg oral capsule) 2 cap by mouth Two (2) times a day Unchanged omeprazole (omeprazole 40 mg oral delayed release capsule) 1 cap by mouth Once a day Duration: 90 Days Unchanged polyethylene glycol 3350 (MiraLax oral powder for reconstitution) by mouth Once a day Unchanged rosuvastatin (Crestor 10 mg oral tablet) 1 tab(s) by mouth Once a day (in the evening) Duration: 100 Days Unchanged senna (senna (sennosides) 8.6 mg oral tablet) 1 tab(s) by mouth Daily at bedtime as needed for for constipation Duration: 30 Days Unchanged sertraline (Zoloft 100 mg oral tablet) 0.5 tab(s) by mouth Once a day (in the evening) Duration: 90 Days Please take this list to your next doctor s visit. Bring all medications you take, including over the counter medications, herbals and other supplements with you to your doctor s visit. Patients and families are reminded to discard old lists and to update any records with all medication providers or retail pharmacies. Education [employer] [place] Biopsy Discharge Instructions Interventional Radiology [facility] [address] [place] [address] Today, you had a biopsy of your abdomen. This procedure was done to help your doctor diagnose and treat the signs and symptoms you have been experiencing. These instructions should be followed after your procedure to reduce the chance of experiencing complications. Diet: Resume your normal diet as tolerated. Activity: Rest for the remainder of the day. You may resume your normal activity tomorrow. You may bathe/shower after 24 hours. Do not soak or submerge site (including swimming or hot tubs) until a scab forms. No heavy lifting, pushing, or straining. Dressing: Check the site for bleeding. Apply pressure to the site if bleeding excessively and call your physician. Change the band aid as needed; it can be removed after 24 hours. Keep the site dry at all times until a scab forms over the site. Pain Control: The puncture site may be sore for 1 to 2 days following the procedure. Bybe-dbo-nayzmmy pain medication should be used for pain or discomfort. Please check with the physician who ordered this procedure for you for their specific recommendations. If your pain is not relieved or becomes more severe, notify the physician who sent you for this procedure. If you were sedated for this procedure: Avoid alcoholic beverages for 24 hours after your procedure. Do not drive or operate heavy machinery for 24 hours after your procedure. Do not make any legal decisions for 24 hours after your procedure. Medication: Please resume medications as scheduled. When to seek medical help: Lightheadedness, dizziness, or fainting. Severe pain or swelling at the puncture site. Severe nausea or vomiting. Infection: fever greater than 101 degrees, chills, redness, warmth, swelling, bleeding, or pus frompuncture site. If you experience any of these issues during the first 24 hours, please follow the instruction below: First 24 hours call [phone] After 24 hours, contact the physician who ordered this procedure for you. Obtaining test results: Please make an appointment with your doctor to obtain your test results. They are usually availablewithin 4 to 7 business days. Do not assume everything is normal if you have not heard from your doctor or medical facility. It is important for you to follow up on all of your test results. Moderate Conscious Sedation, Adult, Care After These instructions provide you with information about caring for yourself after your procedure. Your health care provider may also give you more specific instructions. Your treatment has been plannedaccording to current medical practices, but problems sometimes occur. Call your health care provider if you have any problems or questions after your procedure. What can I expect after the procedure? After your procedure, it is common: To feel sleepy for several hours. To feel clumsy and have poor balance for several hours. To have poor judgment for several hours. To vomit if you eat too soon. Follow these instructions at home: For at least 24 hours after the procedure: Do not: ? Participate in activities where you could fall or become injured. ? Drive. ? Use heavy machinery. ? Drink alcohol. ? Take sleeping pills or medicines that cause drowsiness. ? Make important decisions or sign legal documents. ? Take care of children on your own. Rest. Eating and drinking Follow the diet recommended by your health care provider. If you vomit: ? Drink water, juice, or soup when you can drink without vomiting. ? Make sure you have little or no nausea before eating solid foods. General instructions Have a responsible adult stay with you until you are awake and alert. Take vtji-kpb-anbgodx and prescription medicines only as told by your health care provider. If you smoke, do not smoke without supervision. Keep all follow-up visits as told by your health care provider. This is important. Contact a health care provider if: You keep feeling nauseous or you keep vomiting. You feel light-headed. You develop a rash. You have a fever. Get help right away if: You have trouble breathing. This information is not intended to replace advice given to you by your health care provider. Make sure you discuss any questions you have with your health care provider. Document Released: 05/19/2014 Document Revised: 07/11/2018 Document Reviewed: 11/17/2016 [employer] Patient Education 2020 [employer] Additional Information VACCINATE! IT SAVES LIVES! Members of the community who have not yet received the COVID-19 vaccine and would like to receive it can visit one of [facility] vaccine clinics. There are many vaccine clinic locations within the [facility]. For locations and available times, please visit [email or web address].[place].gov/. It is important to note that some COVID mobile vaccine clinics are held outdoors and may be canceled in rainy or stormy conditions. To learn more about pediatric vaccinations (ages 5-11), we invite you to visit the [facility] webpage. [email or web address]/[email or web address] [email or web address] learn more about the COVID-19 vaccine, we invite you to visit the CDC website for a list of frequently asked questions.https://www.cdc.gov/coronavirus/2019-ncov/vaccines/faq.html [facility] Patient Portal Access Instructions: Stay connected with your healthcare team and access your personal medical information anytime with the [facility] Patient Portal. Please follow the directions below to create your [facility] account: 1.Access the email account you provided upon registration to the hospital/physician office.2.Look for an invitation email from [facility].3.Open the email and access the invitation link: AcceptInvitation to [facility].4.Fill in the required giang to create your account. To access your account, visit [facility]. Click the blue button labeled Access Patient Portal and then log in with the username and password that you created in the steps above. You will be able to view your test results, lab results, a summary of your visits, upcoming appointments and more. There is also a convenient messaging option where you can send secure messages to your [employer]. In addition, you will have the ability to download any documents or summaries to your computer and/or send the information securely to a physician. Remember that your healthcare information is confidential, so carefully consider who you will allowto register on the [facility] Patient Portal for access to your information. You can also access the [facility] Patient Portal on the [facility] lorna. Simply click on Patient Portal and then log into your account. If you would like to receive a full copy of your medical records, please contact the [facility] Medical Records Department by calling [phone], Saturday through Saturday between 8 a.m. and 4:30 p.m. HOW TO SAFELY DISPOSE OF PRESCRIPTION MEDICATIONS Please use one of the following methods to safely dispose of your unused medications. 1.Use a drug disposal kit: the drug disposal pouch allows you to safely discard your old and unuseddrugs. Ask your nurse to give you one when you are discharged.2.Visit a local take-back location: Many local pharmacies and police departments have programs that collect old and unwanted prescriptiondrugs. Call your local pharmacy or go to http://Personal MedSystems.UClass/2Y8Hz7u to find one close to you.3.Make use of household items: Use cat litter or old coffee grounds to dispose medications if other options arenot available. Mix your drugs with these household products, seal them in an airtight container andthrow it into the garbage. Call [facility]: [phone] to be sure your drugs can be disposed of in this way. Some medicines may require a different approach.4.Never flush your medications down the toilet. IF YOU HAVE BEEN PRESCRIBED AN OPIOID FOR PAIN If you have been prescribed an opioid (such as hydrocodone, oxycodone or morphine), it is critical to understand the possible side effects and risks of opioid pain medications. Even when taken as directed, opioids can have several side effects including: Tolerance, meaning you might need to take more of a medication for the same pain relief. Nausea, vomiting and/or constipation. Sleepiness, dizziness, dry mouth, confusion, depression or itching. Physical dependence, meaning you have withdrawal symptoms when a medication is stopped, can develop within a few days. KNOW YOUR RESPONSIBILITIES It is important to know exactly how much and how often to take the opioid pain medications you are prescribed. Never take opioids in higher amounts or more often than prescribed. Do not combine opioids with alcohol or other drugs that cause drowsiness, such as benzodiazepines, also known as benzos, including diazepam and alprazolam, muscle relaxants or sleep aids. Never sell or share prescription opioids. This is illegal. Store opioids in a secure place and out of reach of others (including children, family, friends and visitors). The last page of this document has been signed and retained as a CHART COPY. Signatures Patient Education Materials Radiology- CT Biopsy 11/29/2019 (CUSTOM) Moderate Conscious Sedation, Adult, Care After Medication Leaflets My discharge plan and instructions have been reviewed and explained to me and I,BLOSSOM BASS understand my current condition and have read and understand these discharge instructions. I have received a written copy of the plan/instructions. If I have questions, I am aware that I should contact my doctor. 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 Name: BLOSSOM BASS /Sex: 1935 Male Med Rec #: [id number] Physician: Financial #: [id number] Pt. Type: O Room/Bed: / Admit/Disch: 02/12/24 09:48:00 - Institution: Allergies identified in patient's electronic medical record at time of printing on 02/12/24 Entry 1 Substance penicillin Reaction Type Allergy Last Modified By: Apryl Newsome PharmD 09/05/21 11:46:00 Case Attendance- IR Entry 1 Entry 2 Entry 3 Case Attendee NIKIA GORE MD, RN Jennifer M Myers, Jessica BREANNA Role Performed Primary Surgeon Procedure Nurse Environmental Sampling Technician Details Time In 02/12/24 11:43:00 02/12/24 11:45:00 02/12/24 11:45:00 Time Out 02/12/24 12:47:00 02/12/24 12:47:00 02/12/24 12:47:00 Procedure/Preference IR Biopsy Abdomen (SN) IR Biopsy Abdomen (SN) IR Biopsy Abdomen (SN) Card Last Modified By: CARMEN Woody RN Jennifer M Fichter, RN Jennifer M 02/12/24 12:53:25 02/12/24 12:53:25 02/12/24 12:53:25 Radiology Procedures- IR Entry 1 Procedure/Preference IR Biopsy Abdomen (SN) Actual Procedure ir biopsy abdomen Card Actual Procedure ct/ir abdominal biopsy Primary Procedure Yes Continued Primary Surgeon NIKIA GORE MD Anesthesia/Sedation IV Sedation, Local Type Additional Procedure Times Start 02/12/24 12:01:00 Stop 02/12/24 12:47:00 Specialty Service SN Radiology Procedure EBL 2 mL Last Modified By: CARMEN Woody 02/12/24 12:52:05 Radiology Procedure Details - IR Entry 1 Radiology Sedation Case Times Sedation Start Time 02/12/24 12:12:00 Sedation Stop Time 02/12/24 12:47:00 Sedation Total Time 35 minutes Radiology - Fluid/Drainage Fluid Amount mL: 0 Radiology Contrast Contrast Used? No Dose 0 Radiology Flouroscopy Fluoroscopy Used? Yes Fluoro Dose (mGy) 613.25 Fluoro Time 39.8 seconds Radiology Local Local Used? Yes Local Type: lidocaine 2% Local Dose 20cc Radiology Procedure Site Site/Location r abdomen Site Condition No complications Dressing Type Bandaids Technologist Notes successful abdominal biopsy patient tolerated gel foam used, d stat used Last Modified By: CARMEN Woody 02/12/24 12:56:13 Cultures and Specimens- IR Entry 1 Kind Specimen Type Mass Date/Time 02/12/24 12:32:00 Source r abdomen soft tissue mass x 16 core Last Modified By: CARMEN Woody 02/12/24 12:42:46 General Case Data - IR Entry 1 Case Information Room AH IR CT Case Level IR Level 2 Wound Class None Specialty SN Radiology Procedure ASA Class None Diagnosis Preop Diagnosis abdominal mesenteric Postop Same As Preop Yes mass biopsy Postop Diagnosis abdominal mesenteric mass biopsy Last Modified By: CARMEN Woody 02/12/24 11:54:59 Medication Administration- IR Entry 1 Entry 2 Entry 3 Medication versed fentanyl lidocaine 2% Time Administered 02/12/24 12:12:00 02/12/24 12:12:00 02/12/24 12:20:00 Route of Admin IV Push IV Push Local Dose 1mg 25mcg 20cc Volume 1 mL .5 mL 20 mL VORB * *Verbal Order Read Back (VORB) is required for NON- PHYSICIAN administration of medications. Administered by No No Yes Physician? Administered by: CARMEN Woody RN Jennifer M KAR, MITRYAN MD Verbal Order Read NIKIA GORE MD, MITRYAN MD Back from: Last Modified By: Fichter, RN Erica CARMEN Bergman RN Jennifer M 02/12/24 12:13:43 02/12/24 12:13:43 02/12/24 12:43:03 Entry 4 Entry 5 Entry 6 Medication versed fentanyl fentanyl Time Administered 02/12/24 12:17:00 02/12/24 12:17:00 02/12/24 12:22:00 Route of Admin IV Push IV Push IV Push Dose 1mg 25mcg 25mcg Volume 1 mL .5 mL .5 mL VORB * *Verbal Order Read Back (VORB) is required for NON- PHYSICIAN administration of medications. Administered by No No No Physician? Administered by: CARMEN Woody RN Jennifer M Fichter, RN Jennifer M Verbal Order Read NIKIA GORE MD, NIKIA GORE, NIKIA HERNANDES Back from: Last Modified By: CARMEN Woody RN Jennifer M Fichter, RN Jennifer M 02/12/24 12:24:33 02/12/24 12:24:33 02/12/24 12:24:33 Entry 7 Medication versed Time Administered 02/12/24 12:22:00 Route of Admin IV Push Dose 1mg Volume 1 mL VORB * *Verbal Order Read Back (VORB) is required for NON- PHYSICIAN administration of medications. Administered by No Physician? Administered by: CARMEN Woody Verbal Order Read NIKIA GORE MD Back from: Last Modified By: CARMEN Woody 02/12/24 12:24:33 Procedure Case Times- IR Entry 1 Patient In Procedure Patient In OR 02/12/24 11:45:00 Patient Out of OR 02/12/24 12:56:00 Procedure Start/Stop Procedure Start Time 02/12/24 12:01:00 Procedure Stop Time 02/12/24 12:47:00 Last Modified By: CARMEN Woody 02/12/24 12:56:21 Immediate Post Procedure Note - IR Entry 1 Immediate Post Yes Findings 16x18G cores of LUQ Procedure Note mesenteric lesion via displayed for RUQ approach Physician to review Closure Technique Closure Technique Other than Primary Last Modified By: CARMEN Woody 02/12/24 12:51:45 Immediate Post Procedure Note - IR Signed By: NIKIA GORE MD 02/12/24 12:51 Allergy Information- IR Entry 1 Allergies Reviewed? Yes Allergies Reviewed Medical Record With Last Modified By: CARMEN Woody 02/12/24 11:29:35 Radiology Protocols/Time Out- IR Entry 1 Preprocedure Clinician Verifies Correct patient ID When Clinically Consent for using name & date Indicated Administration of or MRN, Accurate Blood, Confirmation of procedure, complete correct side(s) and Informed Consent, H & P site(s), Correct update immediately diagnostic and prior to procedure, if radiology tests applicable available, Required blood products, implants, devices and/or special equipment available, Preop antibiotics sent with patient/available in OR OR/Procedure Room/Bedside Time 02/12/24 11:57:00 Clinician Verifies Correct patient identity including EMR & records using name and date or medical record number, Accurate procedure consent form, Correct patient position, Necessary equipment is available, Anticipated non-routine events with surgical team (case duration, estimated blood loss, patient specific concerns)., Hernandez patient factors for recovery and management identified with surgical team. When Applicable Consent for Team Members NIKIA GORE MD, Administration of Present for Time Out CARMEN Woody, Blood, Confirmation [facility] correct side and site marked, Relevant images and results are properly labeled and appropriately displayed, Confirm/obtain preop antibiotic order., Alcohol based prep dry, Double verification of sterility indicators complete Instrument Sterility Team Members NIKIA GORE MD, Proctor, Verifying Sterility [facility] Procedure IR Biopsy Abdomen (SN) Last Modified By: CARMEN Woody 02/12/24 11:56:31 Skin Prep- IR Entry 1 Procedure IR Biopsy Abdomen (SN) Skin Prep Prep Area Abdomen Side Medial, Right By NIKIA GORE MD Prep Agents Chloraprep Hair Removal Method N/A Last Modified By: CARMEN Woody 02/12/24 12:16:11 Patient Positioning- IR Entry 1 Procedure IR Biopsy Abdomen (SN) Body Position OP Left Lateral Feet Uncrossed? Yes Pressure Points Yes Checked Last Modified By: CARMEN Woody 02/12/24 12:14:08 Radiology Procedure Plan - IR Entry 1 Radiology - Nursing Care Plan Outcome Statement The patient Outcome Statement The patient receives demonstrates knowledge Cont. appropriate of the expected medication(s), safely responses to the administered during the operative/invasive perioperative/invasive procedure., The period., The patient is patient's value system, free from signs and lifestyle, ethnicity, symptoms of injury and culture are caused by extraneous considered, respected, objects (equipment, and incorporated in the instrumentation, perioperative plan of sponges, or sharps)., care., The patient is The patient is free free from signs and from signs and symptoms symptoms of infection., of electrical injury., The patient is free The patient is at or from signs and symptoms returning to of injury related to normothermia at the positioning., The conclusion of the patient is free from immediate signs and symptoms of postoperative/invasive chemical injury. period., The patient is free from signs and symptoms of laser injury. Radiology - Action Plan Outcomes Met? Yes Director Of Institutional Research CARMEN Woody Completing Procedure Plan Last Modified By: CARMEN Woody 02/12/24 11:32:28 Transfer Post Procedure- IR Entry 1 RAD - Transport to Recovery Patient Transported IV Via Stretcher With Post-op Destination Receiving Transported By CARMEN oWody Post Procedure Time Out Double Verification Yes Date/Time Verified 02/12/24 12:57:00 of ID band on patient Completed Verfied ID Band on CARMEN Woody by Last Modified By: CARMEN Woody 02/12/24 12:56:17 Case Comments Finalized By: CARMEN Woody Document Signatures Signed By: CARMEN Woody 02/12/24 12:56 CARMEN Woody 02/12/24 13:04 [id number] Note ORIGINAL HISTORY: ORDERING SYSTEM PROVIDED HISTORY: Reason for Exam: Mesenteric mass and lymph node 35 min sedation time, 16 cores TECHNIQUE: This exam was performed according to our departmental dose-optimization program which includes automated exposure control, adjustment of the mA and/or kVp according to patient size and/or use of iterative reconstruction technique where applicable. PROCEDURE: 1. CT guided core biopsy, LUQ mesenteric lesion CHICKEN RAISER: Dr. Gore NARROW GAUGE BRAKEMAN: None MATERIALS: 18G core biopsy device ANESTHESIA: Moderate conscious sedation administered. Patient was monitored throughout the procedure by nurse. INTRASERVICE TIME (min): 35 SKIN ENTRY SITE: RUQ intercostal TOUCHPREP: No FINDINGS: PRE: Lobular 3.9 x 2.1 cm soft tissue lesion in the LUQ mesentery noted. While supine, bowel obstructs percutaneous access as well as RLD position. With LLD position, a small window is present via RUQ to lesion. POST: No hemorrhage noted. Some gas around the biopsy site is from thrombin and gelfoam for added hemostasis. No free air. No evidence of bowel perforation. The procedure, risks, limitations, and alternatives were discussed. All questions answered. Written informed consent obtained. Percutaneous site was sterilely prepped and draped. Time out performed. After administering local anesthesia, coaxial needle advanced to the lesion under CT guidance. The needle was advanced with blunt inner cannula just adjacent to the right colon and small bowel into the mesentery. 16 core samples obtained and submitted to pathology and/or microbiology. Gelfoam slurry injected at biopsy site. Thrombin was injected along needle tract to reduce risk of bleeding. Coolidge removed. Sterile dressing placed. COMPLICATIONS: None EBL: Minimal CONDITION: Stable, unchanged IMPRESSION: 1. Successful CT guided core biopsy. 2. Prophylactic oral antibiotics prescribed given blunt needle was advanced past bowel during biopsy. Interpreted by: Nikia Gore MD Preliminary Report By: Nikia Gore MD Electronically signed By Nikia Gore MD Dictated Date: 02/12/2024 4:41:56 PM Prelim Date: 02/12/2024 4:51:53 PM Sign Date: 02/12/2024 4:51:53 PM Ordering Provider: [facility]07-03-2024 Note Interventional Radiology Focused Preprocedure History/Physical Reason for Visit Mesenteric mass and lymph node History of Presenting Illness/Planned IR Procedure Hx enlarging mesenteric mass and abdominal lymphadenopathy. Presents for biopsy. Allergies (1) ActiveSeverityReaction penicillinrash/hives Home Medications (22) Active alfuzosin 10 mg oral tablet, extended release 10 mg = 1 tab(s), Oral, qDay allopurinol 100 mg oral tablet 100 mg = 1 tab(s), Oral, qDayPC amLODIPine 10 mg oral tablet 10 mg = 1 tab(s), Oral, qDay aspirin 81 mg oral delayed release tablet 81 mg = 1 tab(s), Oral, Saturday & Saturday beta-carotene 15 mg oral capsule 15 mg = 1 cap(s), Oral, qDay calcium (as carbonate) 600 mg oral tablet 1,200 mg = 2 tab(s), Oral, BIDM cholecalciferol 125 mcg (5000 intl units) oral capsule 125 mcg = 1 cap(s), Oral, qDay Citrucel 2 tab(s), Oral, BID Colcrys 0.6 mg oral tablet See Instructions, PRN Crestor 10 mg oral tablet 10 mg = 1 tab(s), Oral, qPM levothyroxine 100 mcg (0.1 mg) oral tablet 100 mcg = 1 tab(s), Oral, qDay lutein 40 mg, Oral, qDay meclizine 12.5 mg oral tablet 12.5 mg = 1 tab(s), PRN, Oral, q6h melatonin 10 mg oral capsule 5 mg = 0.5 cap(s), Oral, qHS MiraLax oral powder for reconstitution , Oral, qDay Ocuvite PreserVision 1 tab(s), Oral, BID omeprazole 40 mg oral delayed release capsule 40 mg = 1 cap(s), Oral, qDay Erin Antarctic Krill and Fish Oil Blend 500 mg oral capsule 1,000 mg = 2 cap(s), Oral, BID senna (sennosides) 8.6 mg oral tablet 8.6 mg = 1 tab(s), PRN, Oral, qHS Super enzymes 1 tab(s), Oral, TIDAC Vitamin C 1,000 mg, Oral, Daily Zoloft 100 mg oral tablet 50 mg = 0.5 tab(s), Oral, qPM Problem List/Past Medical History Abnormal CT scan Abnormal barium swallow Adynamic ileus Anemia of chronic disease Angina at rest BMI 26.0-26.9,adult BPH with urinary obstruction Back pain CKD (chronic kidney disease) stage 3, GFR 30-59 ml/min Cellulitis Cerumen impaction Cervical arthritis Change in bowel movement Diastasis recti Esophageal dysphagia First degree AV block GERD (gastroesophageal reflux disease) Glaucoma screening Gout Hard of hearing Hearing difficulty Hearing loss Hiatal hernia Hospital discharge follow-up Hyperlipidemia Hypertensive nephropathy Hypocalcemia Hypothyroidism Immunization due Jaundice Leg edema Leg swelling Lightheadedness Loss of hearing Major depression, single episode, in complete remission Medicare annual wellness visit, subsequent Mesenteric mass Mild intermittent asthma Near syncope Need for vaccination Night sweats CONNER treated with BiPAP Osteoarthritis of left hip Osteoporosis Osteoporosis screening Overweight Prediabetes Rash Rectus diastasis S/P cholecystectomy Screening due Screening for cardiovascular condition Seasonal allergies Secondary hyperparathyroidism Sinus congestion Small bowel obstruction Somatic dysfunction of lumbar region Somatic dysfunction of rib region UTI (urinary tract infection) Umbilical hernia Vertigo Vitamin D deficiency Surgical History Nose: 11/11/23 Echocardiogram: 10/22/23 Cardiovascular stress testin10/15/23 Cholecystectomy: 09/12/19 TURP - Transurethral resection of prostate: 08/12/04 Bowel obstruction Family History Mother: Heart disease; Stroke Sister: Lymphoma Social History Alcohol Details: Use: Past. Frequency: 1-2 times per year. Employment/School Details: Status: Retired. Exercise Details: Exercise type: Jogging/Running, Weight lifting. 1-2 times/week Days per week:. Home/Environment Details: Domestic Concerns: Denies. Living situation: Home with assistance. Lives In: Single level home, grab bars installed . Current Home Treatments Apnea monitoring. Professional Skilled Services or Special Community Resources None. Financial concerns: No. Spouse Name: Andrew. Marital Status: . Nutrition/Health Details: Type of diet: Regular. Appetite Good. Eating Difficulties Swallowing. Enteral Feedings No.TPN Feedings No. Skin Breakdown No. Caffeine intake amount: 1/2 cup coffee daily. Substance Abuse Details: Use: Never. Tobacco Details: Nicotine Use: Never (less than 100 in lifetime). Exposure to Tobacco Smoke Lives in non-smoking home. Physical Exam Vitals: Ygvbhoxoeue06.5 (10:04) Systolic Blood Yoxqfnec047 (10:08) Diastolic Blood Ynspqdrc98 (10:08) Pulse74 (10:04) QhJ809 (10:04) Respiratory RateNo result General: Alert, cooperative. Heart: Regular Lungs: Clear The remainder of the physical exam is noncontributory. Labs Anticoagulation Labs Protime: 12.2 seconds (02/12/24 10:13:00) PT International Ratio: 1.1 ratio (02/12/24 10:13:00) Last Month Basic Metabolic Panel: Hematology: Sodium Level: ------ Hgb: 13.1 (02/12/24) Potassium Level: ------ : () Phosphorus: ------ WBC: 6.7 (02/12/24) Magnesium Lvl: ------ Platelet: 238 (02/12/24) BUN: ------ PT International Ratio: 1.1 (02/12/24) Creatinine Lvl (s): 1.26 (02/12/24) : () Additional - Last Month Basophil %: 0.5 (02/12/24) Basophil, Absolute: 0.0 (02/12/24) Eosinophil %: 2.8 (02/12/24) Eosinophil, Absolute: 0.2 (02/12/24) GFR : >60 (02/12/24) GFR Non-: 54 (02/12/24) Hct: 38.9 (02/12/24) Lymphocyte %: 27.8 (02/12/24) Lymphocyte, Absolute: 1.9 (02/12/24) MCH: 30.1 (02/12/24) MCHC: 33.6 (02/12/24) MCV: 89.7 (02/12/24) Monocyte %: 6.9 (02/12/24) Monocyte, Absolute: 0.5 (02/12/24) MPV: 7.9 (02/12/24) Neutrophil %: 62.0 (02/12/24) Neutrophil, Absolute: 4.2 (02/12/24) Protime: 12.2 (02/12/24) RBC: 4.33 (02/12/24) RDW: 14.2 (02/12/24) Assessment/Treatment Plan CT guided abdominal mass biopsy. Post Procedure Discharge Plan Patient to be discharged home. Josie Soni PA-C Interventional Radiology Pager: [phone] IR dept: [phone] Available on [employer] Digitally Signed by JOSIE SONI PA-C on 02/12/2024 11:01 AM [id number] Note ORIGINAL EXAMINATION: BONE DENSITOMETRY 01/01/2024 2:50 pm TECHNIQUE: A bone density dual x-ray absorptiometry (DEXA) scan was performed of the axial (e.g. hips, spine) and/or appendicular (e.g. radius) skeleton as appropriate. COMPARISON: 05/11/2021 DEXA HISTORY: ORDERING SYSTEM PROVIDED HISTORY: Reason for Exam: Osteoporosis Screening FINDINGS: T Score Left Femoral Neck: -2.0 Left Femoral Neck: 0.657 (g/cm2) T Score Left Hip: -0.5 Left Hip: 0.960 (g/cm2) T Score Lumbar Spine: 2.9 Lumbar Spine: 1.410 (g/cmd2) BMD Change from previous Hip: 3.7% BMD Change from previous Lumbar Spine: 0.7% FRAX: 10 year fracture risk assessment Not reported because prior hip or vertebral fracture IMPRESSION: Osteopenia by WHO criteria. World Health Organization criteria: (Comparing with young normal sex matched population) - Normal: T-score at or above -1 SD (standard deviation) - Osteopenia: T-score between -1 and -2.5 SD - Osteoporosis: T-score at or below -2.5 SD The NOF recommends that FDA-approved medical therapies be considered in post-menopausal women and men age >/= 50 years with a: * Hip or vertebral fracture, or * T-score of /= 20% for major osteoporotic fractures or * >/= 3% for hip fractures All treatment decisions require clinical judgement and consideration of individual patient factors, including patient preferences, comorbidities, previous drug use, risk factors not captured in the FRAX registered model (e.g., frailty, falls, vitamin D deficiency, increased bone turnover, interval significant decline in bone density) and possible under- or over-estimation of fracture risk by FRAX. I have personally reviewed the images of this examination and agree with the resident's findings and interpretation. Interpreted by: Mick Phillips DO Preliminary Report By: Sammy Woodard Electronically signed By Mick Phillips DO Dictated Date: 01/01/2024 3:26:01 PM Prelim Date: 01/01/2024 3:45:07 PM Sign Date: 01/01/2024 3:45:07 PM Ordering Provider: [facility]04-22-2024 Note ORIGINAL EXAMINATION: CT OF THE ABDOMEN AND PELVIS WITH CONTRAST12/02/2023 2:24 pm TECHNIQUE: CT of the abdomen and pelvis was performed with the administration of intravenous contrast. Multiplanar reformatted images are provided for review. Automated exposure control, iterative reconstruction, and/or weight based adjustment of the mA/kV was utilized to reduce the radiation dose to as low as reasonably achievable. COMPARISON: CT abdomen pelvis 04/29/2023 HISTORY: ORDERING SYSTEM PROVIDED HISTORY: Reason for Exam: [address] scan FINDINGS: No acute osseous abnormalities. Degenerative changes of the spine and hips bilaterally. Diffuse bony demineralization. Bibasilar atelectasis. No pleural or pericardial effusion. Subcentimeter hypodense lesion in the central right hepatic lobe is too small to characterize, however appears stable and may represent a small cyst or hemangioma. The spleen, pancreas, and adrenal glands are unremarkable. The kidneys enhance symmetrically. Areas of cortical scarring in the kidneys bilaterally. Stable bilateral renal cysts. Subcentimeter hypodense lesion adjacent to the left superior pole appears stable from prior and appears to project from the kidney, favored to represent an exophytic cyst. No evidence of hydronephrosis or urolithiasis. The bladder is unremarkable. Mildly enlarged prostate. Small hiatal hernia. Small bowel colon are normal in caliber. Scattered colonic diverticulosis with no evidence of diverticulitis. The appendix is unremarkable. The vena cava and portal system are grossly unremarkable. Atherosclerotic nonaneurysmal aorta. The lobulated left mesenteric lesion appears decreased in size measuring 4.0 cm, previously 3.4 cm. Right lower quadrant lymphadenopathy appears mildly more prominent measuring up to 1.2 cm in short axis, previously 1.1 cm on my remeasurement. Prominent left omental rounded hyperdense lesions may represent diverticulosis, omental lesions, or splenules. Small fat containing umbilical hernia. Small fat containing inguinal hernias bilaterally. IMPRESSION: Enlarging left mesenteric lesion and right lower quadrant lymphadenopathy raises concern for neoplasm. If definitive tissue sampling is not pursued, continued follow-up is recommended. Diverticulosis with no evidence of diverticulitis. Additional chronic and incidental findings as above. I have personally reviewed the images of this examination and agree with the resident's findings and interpretation. Interpreted by: Sp Dewitt MD Preliminary Report By: Taqueria Gomez Electronically signed By Sp Dewitt MD Dictated Date: 12/02/2023 2:54:56 PM Prelim Date: 12/02/2023 4:48:20 PM Sign Date: 12/02/2023 4:48:20 PM [facility]ing [facility] * Exam Date Time Procedure Performing Provider Status 10/22/23 10:02 AM VL Carotid US/Dopple r Complete - CV Auth (Verified) [facility] 03-12-2024 Note* Exam Date Time Procedure Performing Provider Status 10/22/23 9:47 AM Echocardiogram, Adult - CV Auth (Verified) [facility] 02-23-2024 Note. MICRO - Microbiology PROCEDURE: Urine Culture [O1 *1] SOURCE: Urine, Clean Catch BODY SITE: COLLECTED DATE/TIME: 10/02/2023 07:15 EST RECEIVED DATE/TIME: 10/02/2023 15:39 EST START DATE/TIME: 10/02/2023 15:39 EST FREE TEXT SOURCE: FINAL REPORTS Final Report [] Verified Date/Time/Personnel: 10/04/2023 08:03 EST No growth at 48 hours. PRELIMINARY REPORTS Preliminary Report [] Verified Date/Time/Personnel: 10/03/2023 10:11 EST No growth to date Order Comments O1: Urine Culture Run culture, has symptoms Performing Locations *1: This test was performed at: [facility], [address] [place] [address], [facility] , [facility] ([place])04-29-2023 Note ORIGINAL LOWER EXAMINATION: CT OF THE ABDOMEN AND PELVIS WITH CONTRAST04/29/2023 3:11 pm TECHNIQUE: CT of the abdomen and pelvis was performed with the administration of intravenous contrast. Multiplanar reformatted images are provided for review. Automated exposure control, iterative reconstruction, and/or weight based adjustment of the mA/kV was utilized to reduce the radiation dose to as low as reasonably achievable. COMPARISON: 10/17/2022 HISTORY: ORDERING SYSTEM PROVIDED HISTORY: Reason for Exam: abd pain/6 month followup exam F/U abnormal CT scan. Pt reports no current complaints. FINDINGS: Provided images of the lower thorax are unremarkable. No acute or suspicious bony abnormality. Moderate to marked degenerative spine. Small sliding hiatal hernia. Possible contracted or dystrophic gallbladder with cholelithiasis. No unusual enhancement of the liver now seen. Tiny right-sided liver cyst. There is no intra or extrahepatic biliary duct dilation. No focal mass identified. The pancreas, spleen, and adrenal glands are unremarkable. Cholecystectomy clips. The kidneys enhance symmetrically without evidence of hydronephrosis or mass. Scattered renal cysts. The ureters are normal course and caliber. There is no evidence of urolithiasis. The urinary bladder is well-distended without wall thickening or focal mass. The prostate is within normal limits. The visualized aorta is nonaneurysmal. Scattered diverticulosis without diverticulitis. No pathologically enlarged retroperitoneal, mesenteric, or pelvic lymph nodes are identified. There is no free intraperitoneal air or fluid. Prominent right upper quadrant mesenteric lymph nodes the largest of which measures 2.2 cm. Lobulated mesenteric lesion measures 3.4 cm previously was measured near 4 cm. Bilateral fat containing inguinal hernias. IMPRESSION: Prominent right lower quadrant mesenteric lymph nodes the largest of which measures 2.2 cm. Difficult to exclude lymphoproliferative disorder. 2. Lobulated mesenteric lesion appears stable to slightly smaller and now measures 3.4 cm. Recommend continued follow-up and monitoring. 3. No other adenopathy observed. I have personally reviewed the images of this examination and agree with the resident's findings and interpretation. Interpreted by: Sp Dewitt MD Preliminary Report By: Sammy Woodard Electronically signed By Sp Dewitt MD Dictated Date: 04/29/2023 3:24:10 PM Prelim Date: 04/29/2023 4:46:04 PM Sign Date: 04/29/2023 4:46:04 PM Ordering Provider: [place] [id number] Note * Mara Colon RN: SIGN, AUTHOR, SIGN, AUTHOR, PERFORM Event Display: CT Procedure Record Authored Date: [id number] CT Procedure Record Summary Primary Physician: Finalized Date/Time: 04/13/22 13:53:27 Pt. Name: BLOSSOM BASS Bria GonzalezB./Sex: 1935 Male Med Rec #: [id number] Physician: Financial #: [id number] Pt. Type: O Room/Bed: / Admit/Disch: 04/13/22 11:33:00 - Institution: Allergies identified in patient's electronic medical record at time of printing on 04/13/22 Entry 1 Substance penicillin Reaction Type Allergy Last Modified By: Apryl Newsome PharmD 09/05/21 11:46:00 Case Attendance- CT Entry 1 Entry 2 Entry 3 Case Attendee NIKIA GORE MD, Brittaney RN Thomas, Stephanie M [facility] Role Performed Radiologist Procedure Procedure Nurse Environmental Sampling Technician Details Time In 04/13/22 13:21:00 04/13/22 12:59:00 04/13/22 12:59:00 Time Out 04/13/22 13:48:00 04/13/22 13:48:00 04/13/22 13:48:00 Procedure/Preference CT Biopsy Abdomen (SN) CT Biopsy Abdomen (SN) CT Biopsy Abdomen (SN) Card Last Modified By: Mara Colon RN, Brittaney RN Magee, Brittaney RN 04/13/22 13:53:11 04/13/22 13:53:11 04/13/22 13:53:11 Radiology Procedures- CT Entry 1 Procedure/Preference CT Biopsy Abdomen (SN) Actual Procedure CT BIOPSY ABDOMEN Card Primary Procedure Yes Primary Surgeon NIKIA GORE MD Anesthesia/Sedation Local, IV Sedation Type Additional Procedure Times Start 04/13/22 13:21:00 Stop 04/13/22 13:45:00 Specialty Service SN Radiology Procedure EBL 3 mL Last Modified By: Mara Colon RN 04/13/22 13:45:27 Cultures and Specimens- CT Entry 1 Kind Specimen Type Mass Date/Time 04/13/22 13:35:00 Last Modified By: Mara Colon RN 04/13/22 13:36:16 General Case Data- CT Entry 1 Case Information Room AH CT 2 Case Level None Wound Class None Specialty SN Radiology Procedure ASA Class None Diagnosis Preop Diagnosis abdominal mass Postop Same As Preop Yes Postop Diagnosis abdominal mass Last Modified By: Mara Colon RN 04/13/22 13:08:58 Medication Administration- CT Entry 1 Entry 2 Entry 3 Medication fentanyl versed lidocaine 1 percent Time Administered 04/13/22 13:22:00 04/13/22 13:22:00 04/13/22 13:32:00 Route of Admin IV Push IV Push Local Dose 25 mcg 1 mg 10 cc Volume VORB * *Verbal Order Read Back (VORB) is required for NON- PHYSICIAN administration of medications. Administered by No No Yes Physician? Administered by: Mara Colon RN, Brittaney RN KAR, MITRYAN MD Verbal Order Read NIKIA GORE MD, MITRYAN MD Back from: Last Modified By: Mara Colon RN, Brittaney RN Magee, Brittaney RN 04/13/22 13:23:44 04/13/22 13:23:44 04/13/22 13:41:38 Entry 4 Entry 5 Entry 6 Medication fentanyl versed fentanyl Time Administered 04/13/22 13:27:00 04/13/22 13:27:00 04/13/22 13:32:00 Route of Admin IV Push IV Push IV Push Dose 25 mcg 1 mg 25 mcg Volume VORB * *Verbal Order Read Back (VORB) is required for NON- PHYSICIAN administration of medications. Administered by No No No Physician? Administered by: Mara Colon RN, Brittaney RN Magee, Brittaney RN Verbal Order Read NIKIA GORE MD, MITRYAN MD KAR, MITRYAN MD Back from: Last Modified By: Mara Colon RN, Brittaney RN Magee, Brittaney RN 04/13/22 13:28:06 04/13/22 13:28:06 04/13/22 13:32:26 Entry 7 Medication versed Time Administered 04/13/22 13:32:00 Route of Admin IV Push Dose 1 mg Volume VORB * *Verbal Order Read Back (VORB) is required for NON- PHYSICIAN administration of medications. Administered by No Physician? Administered by: Mara Colon RN Verbal Order Read NIKIA GORE MD Back from: Last Modified By: Mara Colon RN 04/13/22 13:32:26 Procedure Case Times- CT Entry 1 Patient In Procedure Patient In OR 04/13/22 12:59:00 Patient Out of OR 04/13/22 13:48:00 Procedure Start/Stop Procedure Start Time 04/13/22 13:21:00 Procedure Stop Time 04/13/22 13:45:00 Last Modified By: Mara Colon RN 04/13/22 13:52:48 Immediate Post Procedure Note- CT Entry 1 Immediate Post Yes Findings 10 cores taken; gel Procedure Note displayed for Physician to review Closure Technique Closure Technique Other than Primary Last Modified By: Mara Colon RN 04/13/22 13:52:36 Immediate Post Procedure Note- CT Signed By: NIKIA GORE MD 04/13/22 13:46 Allergy Information- CT Entry 1 Allergies Reviewed? Yes Allergies Reviewed Patient With Last Modified By: Mara Colon RN 04/13/22 13:07:09 Radiology Protocols/Time Out- CT Entry 1 Preprocedure Clinician Verifies Correct patient ID When Clinically Confirmation of correct using name & date Indicated side(s) and site(s), or MRN, Accurate Correct diagnostic and procedure, complete radiology tests Informed Consent, H & P available update immediately prior to procedure, if applicable OR/Procedure Room/Bedside Time 04/13/22 13:21:00 Clinician Verifies Correct patient identity including EMR & records using name and date or medical record number, Accurate procedure consent form, Correct patient position, Necessary equipment is available When Applicable Confirmation correct Team Members NIKIA GORE MD, Magee, side and site marked, Present for Time Out Minor Terry RN, Relevant images and Intermolecular results are properly labeled and appropriately displayed, Alcohol based prep dry Instrument Sterility Procedure CT Biopsy Abdomen (SN) Last Modified By: Mara Colon RN 04/13/22 13:23:24 Skin Prep - CT Entry [address] Biopsy Abdomen (SN) Skin Prep Prep Area Abdomen Side Right By NIKIA GORE MD Prep Agents Chloraprep Hair Removal Method N/A Last Modified By: Mara Colon RN 04/13/22 13:08:29 Patient Positioning - CT Entry [address] Biopsy Abdomen (SN) Body Position OP Supine Feet Uncrossed? Yes Pressure Points Yes Checked Last Modified By: Mara Colon RN 04/13/22 13:08:35 Radiology Procedure Plan - CT Entry 1 Radiology - Nursing Care Plan Outcome Statement The patient Outcome Statement The patient receives demonstrates knowledge Cont. appropriate of the expected medication(s), safely responses to the administered during the operative/invasive perioperative/invasive procedure., The period., The patient is patient's value system, free from signs and lifestyle, ethnicity, symptoms of injury and culture are caused by extraneous considered, respected, objects (equipment, and incorporated in the instrumentation, perioperative plan of sponges, or sharps). care., The patient is free from signs and symptoms of infection. Radiology - Action Plan Outcomes Met? Yes Director Of Institutional Research Mara Colon RN Completing Procedure Plan Last Modified By: Mara Colon RN 04/13/22 13:08:49 Radiology Lines and Procedures- CT Entry 1 Radiology Sedation Case Times Sedation Start Time 04/13/22 13:22:00 Sedation Stop Time 04/13/22 13:45:00 Sedation Total Time 23 min Radiology - Fluid/Drainage RAD - CT Guidewires, Cath... [facility] Corvocet Biopsy System [id number] Radiology Urinary Catheter Radiology - CT Other Items Trays/Kits Custom Procedure Kit Radiology Contrast Contrast Used? No Radiology Procedure Site Site/Location right upper abdomen Site Condition No complications Dressing Type Bandaids Technologist Notes gel foam was used. Last Modified By: Mara Colon RN 04/13/22 13:53:05 Transfer Post Procedure- CT Entry 1 RAD - Transport to Recovery Patient Transported IV Via Cart With Post-op Destination Receiving Transported By Mara Colon RN Post Procedure Time Out Double Verification Yes Date/Time Verified 04/13/22 13:43:00 of ID band on patient Completed Verfied ID Band on Aleisha Gaxiola Rad by LEYIO Last Modified By: Mara Colon RN 04/13/22 13:53:10 Case Comments <None> Finalized By: Mara Colon RN Document Signatures Signed By: Mara Colon RN 04/13/22 13:53 Mara Colon RN 04/13/22 13:53 [facility] 09-02-2022 Hospital Discharge instructions Patient Education 04/13/2022 12:51:35 Moderate Conscious Sedation, Adult, Care After Moderate Conscious Sedation, Adult, Care After These instructions provide you with information about caring for yourself after your procedure. Your health care provider may also give you more specific instructions. Your treatment has been plannedaccording to current medical practices, but problems sometimes occur. Call your health care provider if you have any problems or questions after your procedure. What can I expect after the procedure? After your procedure, it is common: To feel sleepy for several hours. To feel clumsy and have poor balance for several hours. To have poor judgment for several hours. To vomit if you eat too soon. Follow these instructions at home: For at least 24 hours after the procedure: Do not: ?Participate in activities where you could fall or become injured. ?Drive. ?Use heavy machinery. ?Drink alcohol. ?Take sleeping pills or medicines that cause drowsiness. ?Make important decisions or sign legal documents. ?Take care of children on your own. Rest. Eating and drinking Follow the diet recommended by your health care provider. If you vomit: ?Drink water, juice, or soup when you can drink without vomiting. ?Make sure you have little or no nausea before eating solid foods. General instructions Have a responsible adult stay with you until you are awake and alert. Take [id number] and prescription medicines only as told by your health care provider. If you smoke, do not smoke without supervision. Keep all follow-up visits as told by your health care provider. This is important. Contact a health care provider if: You keep feeling nauseous or you keep vomiting. You feel light-headed. You develop a rash. You have a fever. Get help right away if: You have trouble breathing. This information is not intended to replace advice given to you by your health care provider. Make sure you discuss any questions you have with your health care provider. Document Released: 05/19/2014 Document Revised: 07/11/2018 Document Reviewed: 11/17/2016 [employer] Patient Education 2019 [employer] 04/13/2022 12:51:35 Radiology- CT Biopsy 11/29/2019 (Custom) [place] CT Liver Biopsy Discharge Instructions Interventional Radiology [facility] [address] [place] [address] Today, you had a biopsy of your liver . This procedure was done to help your doctor diagnose and treat the signs and symptoms you have been experiencing. These instructions should be followed after your procedure to reduce the chance of experiencing complications. Diet: Resume your normal diet as tolerated. Activity: Rest for the remainder of the day. You may resume your normal activity tomorrow. You may bathe/shower after 24 hours. Do not soak or submerge site (including swimming or hot tubs) until a scab forms. No heavy lifting, pushing, or straining. Dressing: Check the site for bleeding. Apply pressure to the site if bleeding excessively and call your physician. Change the band aid as needed; it can be removed after 24 hours. Keep the site dry at all times until a scab forms over the site. Pain Control: The puncture site may be sore for 1 to 2 days following the procedure. [id number] pain medication should be used for pain or discomfort. Please check with the physician who ordered this procedure for you for their specific recommendations. If your pain is not relieved or becomes more severe, notify the physician who sent you for this procedure. If you were sedated for this procedure: Avoid alcoholic beverages for 24 hours after your procedure. Do not drive or operate heavy machinery for 24 hours after your procedure. Do not make any legal decisions for 24 hours after your procedure. Medication: Please resume _all home medications today [phone] . When to seek medical help: Lightheadedness, dizziness, or fainting. Severe pain or swelling at the puncture site. Severe nausea or vomiting. Infection: fever greater than 101 degrees, chills, redness, warmth, swelling, bleeding, or pus frompuncture site. If you experience any of these issues during the first 24 hours, please follow the instruction below: call [phone] After 24 hours, contact the physician who ordered this procedure for you. Obtaining test results: Please make an appointment with your doctor to obtain your test results. They are usually availablewithin 4 to 7 business days. Do not assume everything is normal if you have not heard from your doctor or medical facility. It is important for you to follow up on all of your test results. Special Instructions: Follow Up Care 04/09/2022 14:18:53 With:BRITTANY RODRIGUEZ, Surgery Address: [address] [place] [address]- [phone] When: Unknown Comments:Follow-up as needed [facility] 09-02-2022 Evaluation + Plan noteExtracted from: Title:IR pre procedure H&P Author:DOMENIC KUMAR PA-C Date:04/13/22 IR PREPROCEDURE H&P UPDATE IF A HISTORY AND PHYSICAL EXAMINATION HAS BEEN COMPLETED PRIOR TO ADMISSION TO THE HOSPITAL, AN UPDATED EXAMINATION MUST BE COMPLETED AND DOCUMENTED WITHIN 24 HOURS AFTER ADMISSION OR REGISTRATION BUT BEFORE A SURGICAL PROCEDURE. I have examined the patient, reviewed the H&P, and there are no changes unless noted below: Last dose of 81 mg aspirin was 04/11/2022 The most recent H&P/Office Note has been performed on 04/05/2022 and can be found on paper, which has been scanned into the [facility] PACS/RIS system. _ Future Appointments Appointment Date:05/10/2022 11:30:00 AM Scheduled Provider:BALBIR STOVALL MD Location:[facility] Appointment Type:ENDO OV Appointment Date:06/07/2022 11:30:00 AM Scheduled Provider:SP POPE DO Location:[facility] Appointment Type:PC OV Follow Up Appointment Date:10/02/2022 11:30:00 AM Scheduled Provider:SP POPE DO Location:[facility] Appointment Type:PC OV Follow Up Future Scheduled Tests Laboratory* Thyroid Stimulating Hormone 05/11/22 * Free T4 05/11/22 * Free T3 05/11/22 * Lipid Profile 05/11/22 * Vitamin D Level 05/11/22 * Complete Metabolic Panel 05/11/22 * [facility] [place] [place] Lab Send out (Blood Specimens) 07/26/21 [facility] 09-02-[address] Procedure Record Summary Primary Physician: Finalized Date/Time: 04/13/22 13:53:27 Pt. Name: BLOSSOM BASS /Sex: 1935 Male Med Rec #: [id number] Physician: Financial #: [id number] Pt. Type: O Room/Bed: / Admit/Disch: 04/13/22 11:33:00 - Institution: Allergies identified in patient's electronic medical record at time of printing on 04/13/22 Entry 1 Substance penicillin Reaction Type Allergy Last Modified By: Apryl Newsome PharmD 09/05/21 11:46:00 Case Attendance- CT Entry 1 Entry 2 Entry 3 Case Attendee NIKIA GORE MD, Brittaney RN MinorAleisha Cox [place] Role Performed Radiologist Procedure Procedure Nurse Environmental Sampling Technician Details Time In 04/13/22 13:21:00 04/13/22 12:59:00 04/13/22 12:59:00 Time Out 04/13/22 13:48:00 04/13/22 13:48:00 04/13/22 13:48:00 Procedure/Preference CT Biopsy Abdomen (SN) CT Biopsy Abdomen (SN) CT Biopsy Abdomen (SN) Card Last Modified By: Mara Colon RN, Brittaney RN Magee, Brittaney RN 04/13/22 13:53:11 04/13/22 13:53:11 04/13/22 13:53:11 Radiology Procedures- CT Entry 1 Procedure/Preference CT Biopsy Abdomen (SN) Actual Procedure CT BIOPSY ABDOMEN Card Primary Procedure Yes Primary Surgeon NIKIA GORE MD Anesthesia/Sedation Local, IV Sedation Type Additional Procedure Times Start 04/13/22 13:21:00 Stop 04/13/22 13:45:00 Specialty Service SN Radiology Procedure EBL 3 mL Last Modified By: Mara Colon RN 04/13/22 13:45:27 Cultures and Specimens- CT Entry 1 Kind Specimen Type Mass Date/Time 04/13/22 13:35:00 Last Modified By: Mara Colon RN 04/13/22 13:36:16 General Case Data- CT Entry 1 Case Information Room AH CT 2 Case Level None Wound Class None Specialty SN Radiology Procedure ASA Class None Diagnosis Preop Diagnosis abdominal mass Postop Same As Preop Yes Postop Diagnosis abdominal mass Last Modified By: Mara Colon RN 04/13/22 13:08:58 Medication Administration- CT Entry 1 Entry 2 Entry 3 Medication fentanyl versed lidocaine 1 percent Time Administered 04/13/22 13:22:00 04/13/22 13:22:00 04/13/22 13:32:00 Route of Admin IV Push IV Push Local Dose 25 mcg 1 mg 10 cc Volume VORB * *Verbal Order Read Back (VORB) is required for NON- PHYSICIAN administration of medications. Administered by No No Yes Physician? Administered by: Mara Colon RN, Brittaney RN KAR, MITRYAN MD Verbal Order Read NIKIA GORE MD, MITRYAN MD Back from: Last Modified By: Mara Colon RN, Brittaney RN Magee, Brittaney RN 04/13/22 13:23:44 04/13/22 13:23:44 04/13/22 13:41:38 Entry 4 Entry 5 Entry 6 Medication fentanyl versed fentanyl Time Administered 04/13/22 13:27:00 04/13/22 13:27:00 04/13/22 13:32:00 Route of Admin IV Push IV Push IV Push Dose 25 mcg 1 mg 25 mcg Volume VORB * *Verbal Order Read Back (VORB) is required for NON- PHYSICIAN administration of medications. Administered by No No No Physician? Administered by: Mara Colon RN, Brittaney RN Magee, Brittaney RN Verbal Order Read NIKIA GORE MD, MITRYAN MD KAR, MITRYAN MD Back from: Last Modified By: Mara Colon RN, Brittaney RN Magee, Brittaney RN 04/13/22 13:28:06 04/13/22 13:28:06 04/13/22 13:32:26 Entry 7 Medication versed Time Administered 04/13/22 13:32:00 Route of Admin IV Push Dose 1 mg Volume VORB * *Verbal Order Read Back (VORB) is required for NON- PHYSICIAN administration of medications. Administered by No Physician? Administered by: Mara Colon RN Verbal Order Read NIKIA GORE MD Back from: Last Modified By: Mara Colon RN 04/13/22 13:32:26 Procedure Case Times- CT Entry 1 Patient In Procedure Patient In OR 04/13/22 12:59:00 Patient Out of OR 04/13/22 13:48:00 Procedure Start/Stop Procedure Start Time 04/13/22 13:21:00 Procedure Stop Time 04/13/22 13:45:00 Last Modified By: Mara Colon RN 04/13/22 13:52:48 Immediate Post Procedure Note- CT Entry 1 Immediate Post Yes Findings 10 cores taken; gel Procedure Note displayed for Physician to review Closure Technique Closure Technique Other than Primary Last Modified By: Mara Colon RN 04/13/22 13:52:36 Immediate Post Procedure Note- CT Signed By: NIKIA GORE MD 04/13/22 13:46 Allergy Information- CT Entry 1 Allergies Reviewed? Yes Allergies Reviewed Patient With Last Modified By: Mara Colon RN 04/13/22 13:07:09 Radiology Protocols/Time Out- CT Entry 1 Preprocedure Clinician Verifies Correct patient ID When Clinically Confirmation of correct using name & date Indicated side(s) and site(s), or MRN, Accurate Correct diagnostic and procedure, complete radiology tests Informed Consent, H & P available update immediately prior to procedure, if applicable OR/Procedure Room/Bedside Time 04/13/22 13:21:00 Clinician Verifies Correct patient identity including EMR & records using name and date or medical record number, Accurate procedure consent form, Correct patient position, Necessary equipment is available When Applicable Confirmation correct Team Members NIKIA GORE MD, Magee, side and site marked, Present for Time Out Minor Terry RN, Relevant images and Intermolecular results are properly labeled and appropriately displayed, Alcohol based prep dry Instrument Sterility Procedure CT Biopsy Abdomen (SN) Last Modified By: Mara Cooln RN 04/13/22 13:23:24 Skin Prep - CT Entry [address] Biopsy Abdomen (SN) Skin Prep Prep Area Abdomen Side Right By NIKIA GORE MD Prep Agents Chloraprep Hair Removal Method N/A Last Modified By: Mara Colon RN 04/13/22 13:08:29 Patient Positioning - CT Entry [address] Biopsy Abdomen (SN) Body Position OP Supine Feet Uncrossed? Yes Pressure Points Yes Checked Last Modified By: Mara Colon RN 04/13/22 13:08:35 Radiology Procedure Plan - CT Entry 1 Radiology - Nursing Care Plan Outcome Statement The patient Outcome Statement The patient receives demonstrates knowledge Cont. appropriate of the expected medication(s), safely responses to the administered during the operative/invasive perioperative/invasive procedure., The period., The patient is patient's value system, free from signs and lifestyle, ethnicity, symptoms of injury and culture are caused by extraneous considered, respected, objects (equipment, and incorporated in the instrumentation, perioperative plan of sponges, or sharps). care., The patient is free from signs and symptoms of infection. Radiology - Action Plan Outcomes Met? Yes Director Of Institutional Research Mara Colon RN Completing Procedure Plan Last Modified By: Mara Colon RN 04/13/22 13:08:49 Radiology Lines and Procedures- CT Entry 1 Radiology Sedation Case Times Sedation Start Time 04/13/22 13:22:00 Sedation Stop Time 04/13/22 13:45:00 Sedation Total Time 23 min Radiology - Fluid/Drainage RAD - CT Guidewires, Cath... [facility] Corvocet Biopsy System [id number] Radiology Urinary Catheter Radiology - CT Other Items Trays/Kits Custom Procedure Kit Radiology Contrast Contrast Used? No Radiology Procedure Site Site/Location right upper abdomen Site Condition No complications Dressing Type Bandaids Technologist Notes gel foam was used. Last Modified By: Mara Colon RN 04/13/22 13:53:05 Transfer Post Procedure- CT Entry 1 RAD - Transport to Recovery Patient Transported IV Via Cart With Post-op Destination Receiving Transported By Mara Colon RN Post Procedure Time Out Double Verification Yes Date/Time Verified 04/13/22 13:43:00 of ID band on patient Completed Verfied ID Band on Aleisha [facility] Rad by Tech Last Modified By: Mara Colon RN 04/13/22 13:53:10 Case Comments Finalized By: Mara Colon RN Document Signatures Signed By: Mara Colon RN 04/13/22 13:53 Mara Colon RN 04/13/22 13:53 [id number] Summary of episode note Discharge Instructions Thank you for allowing [facility] to assist you with your healthcare needs. The following is importantdischarge information regarding your hospital visit. Your Care Team SP POPE DO What to do next Scheduled Follow-Up Appointments Appointment Type When With Where Contact InformationENDO OV 05/10/2022 11:30 AM BALBIR WALTERS MD [facility] Endocrinology [facility] OV Follow Up 06/07/2022 11:30 AM SP CROFT [facility] OV Follow Up 10/02/2022 11:30 AM EST SP POPE DO [facility] [place] [address] [place] [address] Follow Up Appointments Follow Up with BRITTANY RODRIGUEZ, Surgery When Why: Follow-up as needed Where: [address] [facility] [place] [address] [phone] Allergies penicillin (rash/hives) Medications Please ask your primary doctor or pharmacist before taking any other medication not listed, including over the counter drugs, herbal medications, vitamins and or supplements as they may interact withur home medications. What How Much When Why Instructions Last Dose Unchanged albuterol (Ventolin HFA MDI (90 mcg/ inh) inhalation aerosol) 2 puff(s) by inhalation Four (4) times a day as needed for as needed for wheezing Duration: 90 Days Unchanged alfuzosin (alfuzosin 10 mg oral tablet, extended release) 1 tab(s) by mouth Once a day Duration: 90 Days Unchanged allopurinol (allopurinol 100 mg oral tablet) 1 tab(s) by mouth Once a day after a meal Duration: 90 Days Unchanged amLODIPine (amLODIPine 10 mg oral tablet) 1 tab(s) by mouth Once a day Duration: 90 Days Unchanged ascorbic acid (Vitamin C) 1,000 Milligram by mouth Every day Unchanged aspirin (aspirin 81 mg oral delayed release tablet) 1 tab(s) by mouth Every Saturday and Saturday Unchanged azelastine nasal (azelastine 137 mcg/ inh (0.1%) nasal spray) 2 spray(s) Intranasal Two (2) times a day as needed for Allergy symptoms Unchanged beta-carotene (beta-carotene 15 mg oral capsule) 1 cap by mouth Once a day Unchanged calcium carbonate (calcium (as carbonate) 600 mg oral tablet) 2 tab(s) by mouth Daily before lunch Unchanged cholecalciferol (cholecalciferol 125 mcg (5000 intl units) oral capsule) 1 cap by mouth Once a day Unchanged colchicine (Colcrys 0.6 mg oral tablet) See instructions take 2 0.6 tab(s) Oral qDay at the first sign of a gout flare followed by 0.6 mg one hour later Unchanged DME (DME MISCellaneous) See instructions Leg edema dispense 2 pair compression stockings 20-30 mmHg weight; dx R60.0 Unchanged guaiFENesin (Mucinex 600 mg oral tablet, extended release) 1 tab(s) by mouth Once a day (in the evening) Unchanged levothyroxine (levothyroxine 100 mcg (0.1 mg) oral tablet) 1 tab(s) by mouth Once a day Duration: 90 Days Unchanged lutein 40 Milligram by mouth Once a day Unchanged meclizine (meclizine 12.5 mg oral tablet) 1 tab(s) by mouth Every 6 hours as needed for as needed for dizziness Unchanged melatonin (melatonin 10 mg oral capsule) 1 cap by mouth Daily at bedtime Unchanged methylcellulose (Citrucel) 2 tab(s) by mouth Two (2) times a day Unchanged Misc Medication (Super enzymes) 1 tab(s) by mouth Three (3) times a day before meals Unchanged multivitamin with minerals (Ocuvite PreserVision) 1 tab(s) by mouth Two (2) times a day Takes at 9 AM and 12 PM Unchanged omega-3 polyunsaturated fatty acids (Erin Antarctic Krill and Fish Oil Blend 500 mg oral capsule) 2 cap by mouth Two (2) times a day Unchanged omeprazole (omeprazole 40 mg oral delayed release capsule) 1 cap by mouth Once a day Duration: 90 Days Unchanged polyethylene glycol 3350 (MiraLax oral powder for reconstitution) by mouth Once a day Unchanged rosuvastatin (Crestor 10 mg oral tablet) 1 tab(s) by mouth Once a day (in the evening) Duration: 90 Days Unchanged sertraline (Zoloft 100 mg oral tablet) 0.5 tab(s) by mouth Once a day (in the evening) Duration: 90 Days Please take this list to your next doctor s visit. Bring all medications you take, including over the counter medications, herbals and other supplements with you to your doctor s visit. Patients and families are reminded to discard old lists and to update any records with all medication providers or retail pharmacies. Education Materials Moderate Conscious Sedation, Adult, Care After These instructions provide you with information about caring for yourself after your procedure. Your health care provider may also give you more specific instructions. Your treatment has been plannedaccording to current medical practices, but problems sometimes occur. Call your health care provider if you have any problems or questions after your procedure. What can I expect after the procedure? After your procedure, it is common: To feel sleepy for several hours. To feel clumsy and have poor balance for several hours. To have poor judgment for several hours. To vomit if you eat too soon. Follow these instructions at home: For at least 24 hours after the procedure: Do not: ? Participate in activities where you could fall or become injured. ? Drive. ? Use heavy machinery. ? Drink alcohol. ? Take sleeping pills or medicines that cause drowsiness. ? Make important decisions or sign legal documents. ? Take care of children on your own. Rest. Eating and drinking Follow the diet recommended by your health care provider. If you vomit: ? Drink water, juice, or soup when you can drink without vomiting. ? Make sure you have little or no nausea before eating solid foods. General instructions Have a responsible adult stay with you until you are awake and alert. Take czab-upz-vjkevbi and prescription medicines only as told by your health care provider. If you smoke, do not smoke without supervision. Keep all follow-up visits as told by your health care provider. This is important. Contact a health care provider if: You keep feeling nauseous or you keep vomiting. You feel light-headed. You develop a rash. You have a fever. Get help right away if: You have trouble breathing. This information is not intended to replace advice given to you by your health care provider. Make sure you discuss any questions you have with your health care provider. Document Released: 05/19/2014 Document Revised: 07/11/2018 Document Reviewed: 11/17/2016 [employer] Patient Education 2020 [employer] [place] [address] Liver Biopsy Discharge Instructions Interventional Radiology [facility] [address] [address] Today, you had a biopsy of your liver . This procedure was done to help your doctor diagnose and treat the signs and symptoms you have been experiencing. These instructions should be followed after your procedure to reduce the chance of experiencing complications. Diet: Resume your normal diet as tolerated. Activity: Rest for the remainder of the day. You may resume your normal activity tomorrow. You may bathe/shower after 24 hours. Do not soak or submerge site (including swimming or hot tubs) until a scab forms. No heavy lifting, pushing, or straining. Dressing: Check the site for bleeding. Apply pressure to the site if bleeding excessively and call your physician. Change the band aid as needed; it can be removed after 24 hours. Keep the site dry at all times until a scab forms over the site. Pain Control: The puncture site may be sore for 1 to 2 days following the procedure. Eibm-fzm-tarwgbn pain medication should be used for pain or discomfort. Please check with the physician who ordered this procedure for you for their specific recommendations. If your pain is not relieved or becomes more severe, notify the physician who sent you for this procedure. If you were sedated for this procedure: Avoid alcoholic beverages for 24 hours after your procedure. Do not drive or operate heavy machinery for 24 hours after your procedure. Do not make any legal decisions for 24 hours after your procedure. Medication: Please resume _all home medications today [phone] . When to seek medical help: Lightheadedness, dizziness, or fainting. Severe pain or swelling at the puncture site. Severe nausea or vomiting. Infection: fever greater than 101 degrees, chills, redness, warmth, swelling, bleeding, or pus frompuncture site. If you experience any of these issues during the first 24 hours, please follow the instruction below: call [phone] After 24 hours, contact the physician who ordered this procedure for you. Obtaining test results: Please make an appointment with your doctor to obtain your test results. They are usually availablewithin 4 to 7 business days. Do not assume everything is normal if you have not heard from your doctor or medical facility. It is important for you to follow up on all of your test results. Special Instructions: Additional Information VACCINATE! IT SAVES LIVES! Members of the community who have not yet received the COVID-19 vaccine and would like to receive it can visit one of [facility] vaccine clinics. There are many vaccine clinic locations within the [facility]. For locations and available times, please visit [email or web address] It is important to note that some COVID mobile vaccine clinics are held outdoors and may be canceled in rainy or stormy conditions. To learn more about pediatric vaccinations (ages 5-11), we invite you to visit the [facility] webpage. [email or web address] learn more about the COVID-19 vaccine, we invite you to visit the [facility] website for a list of frequently asked questions. [email or web address] _Asked-Questions.pdf [facility] Patient Portal Access Instructions: Stay connected with your healthcare team and access your personal medical information anytime with the [facility] Patient Portal.If you would like a full copy of your medical records, please contact the [facility] Medical Records Department, Saturday through Saturday between 8a.m. and 4:30p.m. Please follow the directions below to access the portal: 1.Access the email account you provided upon registration to the [facility].2.Look for an invitation email from [facility].3.Open the email and access the invitation link: Accept Invitation to [facility]4.Fill in the required giang to create your account. Sign into [email or web address] with your username and password that you created in the above steps to stay up to date. You can then view a summary of results, a summary of your visits, and the ability to download your summaries to your computer or send the information securely to a physician. Remember that your healthcare information is confidential, so carefully consider who you will allow to register on the [facility] Patient Portal for access to your information. You can also access the [facility] Patient Portal on the [employer] lorna. Simply click on Health Records under [address] and then click on the [facility] logo. HOW TO SAFELY DISPOSE OF PRESCRIPTION MEDICATIONS Please use one of the following methods to safely dispose of your unused medications. 1.Use a drug disposal kit: the drug disposal pouch allows you to safely discard your old and unuseddrugs. Ask your nurse to give you one when you are discharged.2.Visit a local take-back location: Many local pharmacies and police departments have programs that collect old and unwanted prescriptiondrugs. Call your local pharmacy or go to http://Personal MedSystems.UClass/0K9Nh5o to find one close to you.3.Make use of household items: Use cat litter or old coffee grounds to dispose medications if other options arenot available. Mix your drugs with these household products, seal them in an airtight container andthrow it into the garbage. Call [facility]: [phone] to be sure your drugs can be disposed of in this way. Some medicines may require a different approach.4.Never flush your medications down the toilet. IF YOU HAVE BEEN PRESCRIBED AN OPIOID FOR PAIN If you have been prescribed an opioid (such as hydrocodone, oxycodone or morphine), it is critical to understand the possible side effects and risks of opioid pain medications. Even when taken as directed, opioids can have several side effects including: Tolerance, meaning you might need to take more of a medication for the same pain relief. Nausea, vomiting and/or constipation. Sleepiness, dizziness, dry mouth, confusion, depression or itching. Physical dependence, meaning you have withdrawal symptoms when a medication is stopped, can develop within a few days. KNOW YOUR RESPONSIBILITIES It is important to know exactly how much and how often to take the opioid pain medications you are prescribed. Never take opioids in higher amounts or more often than prescribed. Do not combine opioids with alcohol or other drugs that cause drowsiness, such as benzodiazepines, also known as benzos, including diazepam and alprazolam, muscle relaxants or sleep aids. Never sell or share prescription opioids. This is illegal. Store opioids in a secure place and out of reach of others (including children, family, friends and visitors). The last page of this document has been signed and retained as a CHART COPY. Signatures Patient Education Materials Moderate Conscious Sedation, Adult, Care After Radiology- CT Biopsy 11/29/2019 (Custom) Medication Leaflets My discharge plan and instructions have been reviewed and explained to me and I,BLOSSOM BASS understand my current condition and have read and understand these discharge instructions. I have received a written copy of the plan/instructions. If I have questions, I am aware that I should contact my doctor. Patient/Master Brewer Signature: Date/Time: Relationship to Patient: Witness Name/Signature: Date/Time: [id number] History and physical note IR PREPROCEDURE H&P UPDATE IF A HISTORY AND PHYSICAL EXAMINATION HAS BEEN COMPLETED PRIOR TO ADMISSION TO THE HOSPITAL, AN UPDATED EXAMINATION MUST BE COMPLETED AND DOCUMENTED WITHIN 24 HOURS AFTER ADMISSION OR REGISTRATION BUT BEFORE A SURGICAL PROCEDURE. I have examined the patient, reviewed the H&P, and there are no changes unless noted below: Last dose of 81 mg aspirin was 04/11/2022 The most recent H&P/Office Note has been performed on 04/05/2022 and can be found on paper, which has been scanned into the [facility] PACS/RIS system. _ Digitally Signed by MARCUS KUMAR PA-C on 04/13/2022 12:49 PM Digitally Signed by NIKIA GORE MD on 04/13/2022 01:59 PM [facility] [id number] Procedure note Brief IR Post Procedure Note - Outpatient Pre Procedure Dx: GB fossa mass Post Procedure Dx: Same Procedure: 1. CT core biospy Sewer System Supervisor: Thomas Cobbler Sole: None Anesthesia: Local, moderate sedation EBL: Minimal Complications:None Status: Stable Findings: 1. 10 x 18G cores of GB fossa mass, which was PET +. Mild bleeding so injected gelfoam slurry with no further bleeding. No hematoma on post CT images. Plan: 1. VS check then d/c home Full report to follow. Orders in [employer]. Nikia Gore MD Vascular & Interventional Radiology [facility] ([facility]) Julissa [email or web address] Pager: [phone] [facility] Dept (04/03): [phone] [facility] [phone] [facility] (Updated 05/2021) Digitally Signed by NIKIA GORE MD on 04/13/2022 02:00 PM [facility] [id number] Hospital Discharge instructions Patient Education 02/02/2022 09:30:20 Bowel Obstruction Bowel Obstruction A bowel obstruction is a blockage in the small or large bowel. The bowel, which is also called the intestine, is a long, slender tube that connects the stomach to the anus. When a person eats and drinks, food and fluids go from the mouth to the stomach to the small bowel. This is where most of the nutrients in the food and fluids are absorbed. After the small bowel, material passes through the lar ge bowel for further absorption until any leftover material leaves the body as stool through the anus during a bowel movement. A bowel obstruction will prevent food and fluids from passing through the bowel as they normally doduring digestion. The bowel can become partially or completely blocked. If this condition is not treated, it can be dangerous because the bowel could rupture. What are the causes? Common causes of this condition include: Scar tissue (adhesions) from previous surgery or treatment with high-energy X- rays (radiation). Recent surgery. This may cause the movements of the bowel to slow down and cause food to block the intestine. Inflammatory bowel disease, such as Crohn's disease or diverticulitis. Growths or tumors. A bulging organ (hernia). Twisting of the bowel (volvulus). A foreign body. Slipping of a part of the bowel into another part (intussusception). What are the signs or symptoms? Symptoms of this condition include: Pain in the abdomen. Depending on the degree of obstruction, pain may be: ?Mild or severe. ?Dull cramping or sharp pain. ?In one area or in the entire abdomen. Nausea and vomiting. Vomit may be greenish or a yellow bile color. Bloating in the abdomen. Difficulty passing stool (constipation). Lack of passing gas. Frequent belching. Diarrhea. This may occur if the obstruction is partial and runny stool is able to leak around the obstruction. How is this diagnosed? This condition may be diagnosed based on: A physical exam. Medical history. Imaging tests of the abdomen or pelvis, such as X-ray or CT scan. Blood or urine tests. How is this treated? Treatment for this condition depends on the cause and severity of the problem. Treatment may include: Fluids and pain medicines that are given through an IV. Your health care provider may instruct you not to eat or drink if you have nausea or vomiting. Eating a simple diet. You may be asked to consume a clear liquid diet for several days. This allowsthe bowel to rest. Placement of a small tube (nasogastric tube) into the stomach. This will relieve pain, discomfort, and nausea by removing blocked air and fluids from the stomach. It can also help the obstruction clear up faster. Surgery. This may be required if other treatments do not work. Surgery may be required for: ?Bowel obstruction from a hernia. This can be an emergency procedure. ?Scar tissue that causes frequent or severe obstructions. Follow these instructions at home: Medicines Take kigs-nwn-gzjtefh and prescription medicines only as told by your health care provider. If you were prescribed an antibiotic medicine, take it as told by your health care provider. Do notstop taking the antibiotic even if you start to feel better. General instructions Follow instructions from your health care provider about eating restrictions. You may need to avoidsolid foods and consume only clear liquids until your condition improves. Return to your normal activities as told by your health care provider. Ask your health care provider what activities are safe for you. Avoid sitting for a long time without moving. Get up to take short walks every 1 2 hours. This is important to improve blood flow and breathing. Ask for help if you feel weak or unsteady. Keep all follow-up visits as told by your health care provider. This is important. How is this prevented? After having a bowel obstruction, you are more likely to have another. You may do the following things to prevent another obstruction: If you have a long-term (chronic) disease, pay attention to your symptoms and contact your health care provider if you have questions or concerns. Avoid becoming constipated. To prevent or treat constipation, your health care provider may recommend that you: ?Drink enough fluid to keep your urine pale yellow. ?Take gtmg-abz-pmxrrsg or prescription medicines. ?Eat foods that are high in fiber, such as beans, whole grains, and fresh fruits and vegetables. ?Limit foods that are high in fat and processed sugars, such as fried or sweet foods. Stay active. Exercise for 30 minutes or more, 5 or more days each week. Ask your health care provider which exercises are safe for you. Avoid stress. Find ways to reduce stress, such as meditation, exercise, or taking time for activities that relax you. Instead of eating three large meals each day, eat three small meals with three small snacks. Work with a dietitian to make a healthy meal plan that works for you. Do not use any products that contain nicotine or tobacco, such as cigarettes and e-cigarettes. If you need help quitting, ask your health care provider. Contact a health care provider if you: Have a fever. Have chills. Get help right away if you: Have increased pain or cramping. Vomit blood. Have uncontrolled vomiting or nausea. Cannot drink fluids because of vomiting or pain. Become confused. Begin feeling very thirsty (dehydrated). Have severe bloating. Feel extremely weak or you faint. Summary A bowel obstruction is a blockage in the small or large bowel. A bowel obstruction will prevent food and fluids from passing through the bowel as they normally doduring digestion. Treatment for this condition depends on the cause and severity of the problem. It may include fluids and pain medicines through an IV, a simple diet, a nasogastric tube, or surgery. Follow instructions from your health care provider about eating restrictions. You may need to avoidsolid foods and consume only clear liquids until your condition improves. This information is not intended to replace advice given to you by your health care provider. Make sure you discuss any questions you have with your health care provider. Document Released: 10/15/2006 Document Revised: 09/04/2019 Document Reviewed: 12/10/2018 [employer] Patient Education 2020 [employer]. Follow Up Care 01/29/2022 07:06:46 With:DELBERT CHAKRABORTY MD, Surgery Address: [address] [place] [address] [address] [place] [address]- When:02/19/2022 14:50:00 Comments:This is your post-hospital appointment with general surgery. It is in the [facility] office. With:SHIRA GOOD MULTISKILL OPERATOR-BUILDING PRINCIPAL Address: [address] [place] [address] [place] [address] [phone] When:02/09/2022 13:00:00 Comments:This is your post-hospital follow-up appointment. [facility] 06-20-2022 Evaluation + Plan noteExtracted from: Title:History and Physical Author:NASREEN CARDENAS MULTISKILL OPERATOR-BUILDING PRINCIPAL Date:01/29/22 1. Small bowel obstruction 2. Abdominal pain 3. Nausea with vomiting 4. ALYSON on CKD 5. COPD 6. BPH 7. GERD 8. Hypertension 9. Hyperlipidemia Presented with complaints of abdominal pain, bloating, nausea, and vomiting that began yesterday. CT of the abdomen/pelvis demonstrated a small bowel obstruction. Patient was recently admitted in August for the same issue. Did not follow-up with GI/general surgery upon discharge. States this is his third small bowel obstruction since having his gallbladder removed in 2019. Treat with IV fluids, IV antiemetics, IV pain medication, NG tube for decompression. ALYSON on CKD, creatinine noted to be 1.82, baseline between 1.3 and 1.5. Soft IV fluid hydration. COPD, on room air. Not in exacerbation. As needed bronchodilators. BPH stable. Continue medications. GERD, IV PPI. Hypertension, hemodynamically stable. Continue medications. Continue statin for hyperlipidemia. CODE STATUS: Full code Plan of care discussed with patient and at the bedside. They verbalized understanding. Case discussed with collaborating physician Dr. Felix King. Future Appointments Appointment Date:02/09/2022 01:00:00 PM Scheduled Provider:SHIRA GOOD Location:[facility] Appointment Type:[facility] Hospital Follow-Up Appointment Date:02/19/2022 02:50:00 PM Scheduled Provider:DELBERT CHAKRABORTY MD Location[facility] Appointment Type:[employer]S EXAMINER Appointment Date:04/03/2022 10:30:00 AM Scheduled Provider:SP POPE DO Location:[facility] Appointment Type:[facility] Medicare Appointment Date:05/10/2022 11:30:00 AM Scheduled Provider:BALBIR STOVALL MD Location:[facility] Appointment Type:[facility] Future Scheduled Tests Laboratory* Thyroid Stimulating Hormone 05/11/22 * Free T4 05/11/22 * Free T3 05/11/22 * Lipid Profile 05/11/22 * Vitamin D Level 05/11/22 * Complete Metabolic Panel 05/11/22 * [facility] [place] [place] Lab Send out (Blood Specimens) 07/26/21 [facility] 05-09-2022 Evaluation + Plan noteExtracted from: Title:Clinical Document Author:MELL MERCADO Date:12/18/21 [place] ADMISSION HISTORY AN D PHYSICIAL CHIEF COMPLAINT: HISTORY OF PRESENT ILLNESS: REVIEW OF SYSTEMS: ACTIVE PROBLEMS: (56) Abnormal barium swallow (125875978) Adynamic ileus (07584664) Anemia (653344998) Asthma (816284583) At low risk for fall (5372782846) Back pain (366627653) BPH (benign prostatic hyperplasia) (747806436) BPH with urinary obstruction (7229188587) Cellulitis (410393019) Cerumen impaction (08539195) Cervical arthritis (9698405709) CKD (chronic kidney disease) stage 3, GFR 30-59 ml/min (9922825737) Depression screening (207203776) Diastasis recti (010661844) Dupuytren's contracture of hand (662323232) Esophageal dysphagia (01167905) GERD (gastroesophageal reflux disease) (173557931) Glaucoma screening (824133876) Gout (206343363) Hard of hearing (79853016) Hearing difficulty (575940909) Hearing loss (27326142) Hiatal hernia (070559422) Hospital discharge follow-up (0847956298) Hyperlipidemia (24273404) Hypertension ([id number]) Hypocalcemia (7634039) Hypothyroidism (20313918) Immunization due (358097358) Jaundice (76905507) Leg edema (331325035) Leg swelling (7549207236) Lightheadedness (8540749865) Major depression, single episode, 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) Medicare annual wellness visit, subsequent (388394720) Need for vaccination (9616612610) Night sweats (93173041) CONNER treated with BiPAP (466203526) Osteoarthritis of left hip (4951220124) Osteoporosis (121882320) Osteoporosis screening (784157242) Prediabetes (3676402622) Rash (843035146) Rectus diastasis (965061734) S/P cholecystectomy (3950011516) Screening for cardiovascular condition (897577713) Seasonal allergies (7779036115) Secondary hyperparathyroidism (558588700) Sinus congestion (191722657) Somatic dysfunction of lumbar region (1934865469) Somatic dysfunction of rib region (8823536027) Subclinical hypothyroidism (44101169) Umbilical hernia (0003501323) UTI (urinary tract infection) (939851395) Vertigo (9105007991) Vitamin D deficiency (99726473) MEDICATIONS: Active Inpt Meds: None Active PRN Meds: None One Time Meds: None Active IV Meds: Lactated Ringers Infusion 1,000 mL (LR 1,000 mL) Start: 12/18/21 8:09:00 EDT, Rate: 50 mL/hr, 12/18/21 8:09:00 EDT ALLERGIES: (1) penicillin FAMILY HISTORY: SOCIAL HISTORY: PHYSICAL EXAM: VITALS: PhrvilGbliLDGvahqHVGcI7NYB1VuidFj(kg) 12/18 08:0936.3131/[id number]/09 81.8 24 Hr Tmax: 36.3 at 12/18 08:09 36 Hr Tmax: 36.3 at 12/18 08:09 Vital Signs are the last 5 in the past 48 hours. Weights display the last 5 within 7 days. Initial Wt: 12/18 81.8 kg 180 lb Current Wt: 12/18 81.8 kg 180 lb GENERAL: HEENT: CARDIOVASCULAR: RESPIRATORY: ABDOMEN: EXREMETIES: NEUROLOGICAL: PSYCHIATRIC: LABS: No 36hr Lab Data DIAGNOSTICS: IMPRESSION: PLAN: History and Physical Update I have examined the patient; reviewed the H&P and there are no changes to the H&P unless noted below. Future Appointments Appointment Date:04/03/2022 10:30:00 AM Scheduled Provider:SP POPE DO Location:[facility] Appointment Type: Wellness Medicare Appointment Date:05/10/2022 11:30:00 AM Scheduled Provider:BALBIR STOVALL MD Location:[facility] Appointment Type:[facility] Future Scheduled Tests Laboratory* Thyroid Stimulating Hormone 05/11/22 * Free T4 05/11/22 * Free T3 05/11/22 * Lipid Profile 05/11/22 * Vitamin D Level 05/11/22 * Complete Metabolic Panel 05/11/22 * [facility] [place] [place] Lab Send out (Blood Specimens) 07/26/21 Radiology* XR Chest 2 Views (PA & Lateral) 12/27/20 [facility] 05-09-2022 Hospital Discharge instructions Patient Education 12/18/2021 10:07:09 9 - AO Minor Esophagogastroduodenoscopy (10/23)(CUSTOM) Esophagogastroduodenoscopy OBTAINING THE TEST RESULTS Your caregiver s office will call you with the results of the test. POST SEDATION INSTRUCTIONS Rest at home today. Since your coordination may be impaired, be cautious on stairways, do not drive any vehicle or operate any heavy machinery, or use any sharp instruments for the remainder of the day. Do not drink any alcoholic beverages or make any major decisions for 24 hours. POST PROCEDURE INSTRUCTIONS Progress slowly with full liquids then resume previous diet and medications. Belching or passing of gas is to be expected. Notify the physician if you have severe chest pain, fever, or if difficulty when swallowing persists. 10/20/13 Custom 12/18/2021 10:06:26 Monitored Anesthesia Care, Care After Monitored Anesthesia Care, Care After These instructions provide you with information about caring for yourself after your procedure. Your health care provider may also give you more specific instructions. Your treatment has been plannedaccording to current medical practices, but problems sometimes occur. Call your health care provider if you have any problems or questions after your procedure. What can I expect after the procedure? After your procedure, you may: Feel sleepy for several hours. Feel clumsy and have poor balance for several hours. Feel forgetful about what happened after the procedure. Have poor judgment for several hours. Feel nauseous or vomit. Have a sore throat if you had a breathing tube during the procedure. Follow these instructions at home: For at least 24 hours after the procedure: Have a responsible adult stay with you. It is important to have someone help care for you until youare awake and alert. Rest as needed. Do not: ?Participate in activities in which you could fall or become injured. ?Drive. ?Use heavy machinery. ?Drink alcohol. ?Take sleeping pills or medicines that cause drowsiness. ?Make important decisions or sign legal documents. ?Take care of children on your own. Eating and drinking Follow the diet that is recommended by your health care provider. If you vomit, drink water, juice, or soup when you can drink without vomiting. Make sure you have little or no nausea before eating solid foods. General instructions Take yhcr-jxn-jfivmpu and prescription medicines only as told by your health care provider. If you have sleep apnea, surgery and certain medicines can increase your risk for breathing problems. Follow instructions from your health care provider about wearing your sleep device: ?Anytime you are sleeping, including during daytime naps. ?While taking prescription pain medicines, sleeping medicines, or medicines that make you drowsy. If you smoke, do not smoke without supervision. Keep all follow-up visits as told by your health care provider. This is important. Contact a health care provider if: You keep feeling nauseous or you keep vomiting. You feel light-headed. You develop a rash. You have a fever. Get help right away if: You have trouble breathing. Summary For several hours after your procedure, you may feel sleepy and have poor judgment. Have a responsible adult stay with you for at least 24 hours or until you are awake and alert. This information is not intended to replace advice given to you by your health care provider. Make sure you discuss any questions you have with your health care provider. Document Released: 11/18/2016 Document Revised: 2018 Document Reviewed: 11/18/2016 [employer] Patient Education 2020 [employer] Follow Up Care 11/29/2021 13:39:05 With:MELL MERCADO Address: [address] [facility] [address] [place] [address] [phone] [employer] (1) When: Unknown Comments:CALL OFFICE FOR FOLLOW UP. [facility] 04-12-2022 Hospital Discharge instructions Patient Education 11/21/2021 15:01:32 Dehydration (Adult) Dehydration (Adult) Dehydration occurs when your body loses too much fluid. This may be the result of prolonged vomiting or diarrhea, excessive sweating, or a high fever. It may also happen if you don t drink enough fluid when you re sick or out in the heat. Misuse of diuretics (water pills) can also be a cause. Symptoms include thirst and decreased urine output. You may also feel dizzy, weak, fatigued, or very drowsy. The diet described below is usually enough to treat dehydration. In some cases, you may need medicine. Home care Drink at least 12 8-ounce glasses of fluid every day to resolve the dehydration. Fluid may include water; orange juice; lemonade; apple, grape, or cranberry juice; clear fruit drinks; electrolyte replacement and sports drinks; and teas and coffee without caffeine. Don't drink alcohol. If you have been diagnosed with a kidney disease, ask your doctor how much and what types of fluids you should drink to prevent dehydration. If you have kidney disease, fluid can build up in the body. This can be dangerous to your health. If you have a fever, muscle aches, or a headache as a result of a cold or flu, you may take acetaminophen or ibuprofen, unless another medicine was prescribed. If you have chronic liver or kidney disease, or have ever had a stomach ulcer or gastrointestinal bleeding, talk with your healthcare provider before using these medicines. Don't take aspirin if you are younger than 18 and have a fever. Aspirin raises the chance for severe liver injury. Follow-up care Follow up with your healthcare provider, or as advised. When to seek medical advice Call your healthcare provider right away if any of these occur: Continued vomiting Frequent diarrhea (more than 5 times a day); blood (red or black color) or mucus in diarrhea Blood in vomit or stool Swollen abdomen or increasing abdominal pain Weakness, dizziness, or fainting Unusual drowsiness or confusion Reduced urine output or extreme thirst Fever of 100.4 F (38 C) or higher [id number] [employer] [place] [address]. All rights reserved. This information is not intended as a substitute for professional medical care. Always follow yourhealthcare professional's instructions. 11/21/2021 15:01:28 Anemia Anemia Anemia is a condition that occurs when your body does not have enough healthy red blood cells (RBCs). RBCs are the parts of your blood that carry oxygen throughout your body. A protein called hemoglobin allows your RBCs to absorb and release oxygen. Without enough RBCs or hemoglobin, your body doesn't get enough oxygen. Symptoms of anemia may then occur. What are the symptoms of anemia? Some people with anemia have no symptoms. But most people have symptoms that range from mild to severe. These can include: Tiredness (fatigue) Weakness Pale skin Shortness of breath Dizziness or fainting Rapid heartbeat Trouble doing normal amounts of activity Jaundice (yellowing of your eyes, skin, or mouth; dark urine) What causes anemia? Anemia can occur when your body: Loses too much blood Does not make enough RBCs Destroys your RBCs at a faster rate than it can replace them Does not make a normal amount of hemoglobin in your RBCs These problems can occur for many reasons, including: A condition that you are born with (congenital or inherited), such as sickle cell disease or thalassemia Heavy bleeding for any reason, including injury, surgery, childbirth, or even heavy menstrual periods Being low in certain nutrients, such as iron, folate, or vitamin B12, possibly from a poor diet or a condition like celiac disease or Crohn's disease Certain chronic conditions like diabetes, arthritis, or kidney disease Certain chronic infections like tuberculosis or HIV Exposure to certain medicines, such as those used for chemotherapy There are different types of anemia. Your healthcare provider can tell you more about the type of anemia you have and what may have caused it. How is anemia diagnosed? To diagnose anemia, your healthcare provider orders blood tests. These can include: Complete blood cell count (CBC). This test measures the amounts of the different types of blood cells. Blood smear. This test checks the size and shape of your blood cells. To do the test, a drop of your blood is viewed under a microscope. A stain is used to make the blood cells easier to see. Iron studies. These tests measure the amount of iron in your blood. Your body needs iron to make hemoglobin in your RBCs. Vitamin B12 and folate studies. These tests check for some of the components that help give RBCs a normal size and shape. Reticulocyte count. This test measures the amount of new RBCs that your bone marrow makes. Hemoglobin electrophoresis. This test checks for problems with your hemoglobin in RBCs. How is anemia treated? Treatment for anemia is based on the type of anemia, its cause, and the severity of your symptoms. Treatments may include: Diet changes. This involves increasing the amount of certain nutrients in your diet, such as iron, vitamin B12, or folate. Your healthcare provider may also prescribe nutrient supplements. Medicines. Certain medicines treat the cause of your anemia. Others help build new RBCs or relieve symptoms. If a medicine is the cause of your anemia, you may need to stop or change it. Blood transfusions. Replacing some of your blood can increase the number of healthy RBCs in your body. Surgery. In some cases, your doctor may do surgery to treat the underlying cause of anemia. If you need surgery, your healthcare provider will explain the procedure and outline the risks and benefitsfor you. What are the long-term concerns? If you have a certain type of anemia, you can expect a full recovery after treatment. If you have other types of anemia (especially a type you're born with), you will need to manage it for life. Yourdoctor can tell you more. [phone] [employer] [address] [place] [address], [place] [address]. All rights reserved. This information is not intended as a substitute for professional medical care. Always follow [facility] professional's instructions. 11/21/2021 15:01:26 Ileus Ileus The digestive tract. Ileus occurs when there is a problem with motility in the stomach and small or large intestine (bowel). Motility is the movement of food and waste through the digestive tract. Ileus is not caused by a physical blockage (obstruction). Normally, muscles in the bowel ruiz contract to move waste along. Signals from nerves tell the muscles when to contract. With ileus, this movement slows down or stops completely. As a result, waste can t move through the bowels and out of the body. This can cause belly (abdominal) pain and other symptoms. Treatment is needed to restore normal movement and ease symptoms. Causes of ileus Ileus can be caused by the following: Abdominal surgery Abdominal infection Injury to blood vessels that supply blood to the abdomen Low levels of sodium or potassium (electrolyte imbalance) Certain medicines, such as opioid pain medicines Certain kidney or lung diseases Certain health problems, such as cystic fibrosis and diabetes Symptoms of ileus Common symptoms of ileus include: Belly swelling or bloating Upset stomach (nausea) and vomiting Belly cramps Constipation or diarrhea Loss of appetite Not able to keep food down Not able to pass stool or gas Diagnosing ileus Your healthcare provider will ask about your symptoms and health history. You ll also have a physical exam. If your provider thinks you may have ileus, tests may be done to confirm the problem. Thesecan include: Imaging tests. These provide pictures of the bowels. Common tests include X-rays and a CT scan. Blood tests. These are done to c heck for infection and other problems, such as fluid loss (dehydration). Upper GI (gastrointestinal) series. This test takes X-rays of the upper digestive tract, from the mouth to the small intestine. An X-ray dye (contrast fluid) is used. The dye coats the inside of the upper digestive tract so that it will show up clearly on X-rays. Treating ileus In most cases, ileus goes away by itself when the main cause clears up. The goal is to manage symptoms until movement in the digestive tract returns to normal. Treatment takes place in a hospital. Aspart of your care, the following may be done: No food or drink is given by mouth. This allows your bowels to rest. An IV (intravenous) line is placed in a vein in your arm or hand. The IV line is used to give fluids and nutrition. It may also be used to give medicines. These may be needed to improve movement in your digestive tract, or to ease pain. They may also be needed to treat any underlying infections or conditions you have. A soft, thin, flexible tube (nasogastric tube) is inserted through your nose and into your stomach.The tube is used to remove extra gas and fluid in your stomach and bowels. This helps to ease symptoms such as pain and swelling. You ll be watched closely in the hospital until your symptoms get better. Your provider will tell you when you re well enough to go home. This is usually within a few days. In rare cases, problems may occur. Other treatments, such as surgery, may then be done. Your provider will tell you more about other treatments, if needed. Long-term concerns After treatment, most people recover completely. In some cases, you may need to see your provider for a follow-up appointment. When to call your provider Call your healthcare provider right away if you have any of the following: Fever of 100.4 F (38 C) or higher, or as advised by your provider Belly swelling or pain that won t go away Not able to pass stool or gas Nausea and vomiting Getting full very easily with only small amounts of food or drink Bleeding from the rectum Black, tarry stool [phone] [employer] [address] [place] [address]. All rights reserved. This information is not intended as a substitute for professional medical care. Always follow yourhealthcare professional's instructions. Follow Up Care 11/21/2021 09:59:14 With:MELL MERCADO Address: [address] [address] [phone] Business (1) When:2-4 days Comments:Schedule appointment as soon as possibleReturn to ED if symptoms worsenFollow up for gi studies elma. Clear liquid diet ie pedialyte x 12hrs and if better increase to soft non-dairy diet. Start 2 citrucel tabs 2x/day. Return for symptoms as described [facility] 01-28-2022 Hospital Discharge instructions Patient Education 09/08/2021 13:50:07 Nasogastric Tube Insertion, Adult Nasogastric Tube Insertion, Adult A nasogastric tube is used to remove stomach contents or air and to help in the diagnosis and treatment of certain conditions. The tube can also be used to deliver medicine, water, and liquid food. You may need this tube if: You have an intestinal blockage. You have abdominal surgery. You are on a breathing machine (ventilator). You are unable to eat, drink, or take medicine by mouth (orally). The tube is passed through your nose, into the back of your throat, and down into your stomach. This procedure is done while you are awake. Numbing medicine may be used to make the procedure more comfortable. The tube is easily taken out when it is no longer needed. Tell a health care provider about: Any allergies you have. All medicines you are taking, including vitamins, herbs, eye drops, creams, and widw-qph-dcicgdr medicines. Previous problems you or members of your family have had with the use of anesthetics or numbing medicines. Any blood disorders you have. Any history of bleeding from the nose, throat, or stomach. Any recent injuries to your face. Any surgeries you have had, including surgery to the nose or sinuses. Any history of a deviated septum or other problems with the nose. Any other medical conditions you have. Whether you are or may be . What are the risks? Generally, this is a safe procedure. However, problems may occur, including: Failure to successfully place the tube. Incorrect tube placement into one of the main breathing tubes in the lungs (bronchi). Making a hole (perforation) in the swallowing tube (esophagus). Bleeding. Infection at the tube placement site. Lung infection from fluid going into the lung (aspiration pneumonia). Allergic reaction to a numbing medicine that is used before the tube is inserted. What happens before the procedure? Follow your health care provider s instructions. There are usually no preparations needed for this procedure. What happens during the procedure? Your health care provider may examine the inside of your nose to see which side is wider. A numbing solution or spray (topical anesthetic) may be put into your nose. You may be asked to inhale and swallow this anesthetic. A topical anesthetic may also be sprayed into the back of your mouth. You will be positioned in an upright, sitting position. As soon as your nose and throat are numb, your health care provider will put a slippery substance (lubricant) on the tip of the tube and place it in your nose. The tube will be advanced into the back of your throat. You may be given a glass of water with a straw. As the tube is advanced down your throat, you may be asked to take sips of water and try to swallow. When the tube reaches your stomach, your health care provider may test the tube position by: ?Using a syringe to remove stomach fluids through the tube. ?Pushing air through the tube and listening with a stethoscope for sounds in the stomach. An X-ray may be taken to check the position of the tube. When the tube is in the right place, it will be secured to your nose. This will keep the tube from moving. The tube may be connected to a suction device or a pump to deliver medicine or liquids. The procedure may vary among health care providers and hospitals. What happens after the procedure? Your throat may feel sore as the topical anesthetic wears off. Let your health care provider know if the tube gets pulled or if it changes position in the back ofyour throat. This information is not intended to replace advice given to you by your health care provider. Make sure you discuss any questions you have with your health care provider. Document Released: 11/19/2016 Document Revised: 07/11/2018 Document Reviewed: 10/10/2016 [employer] Patient Education 2020 [employer]. 09/08/2021 13:50:02 Ileus Ileus Ileus is a condition that happens when the intestines, which are also called bowels, stop working correctly. The intestines are hollow organs that digest food after the food leaves the stomach. Theseorgans are long, muscular tubes that connect the stomach to the rectum. When ileus occurs, the muscular contractions that cause food to move through the intestines do not happen as they normally would. If the intestines stop working, food cannot pass through to get digested. This condition is a serious problem that usually requires hospitalization. It can cause symptoms such as nausea, abdominal pain, and bloating. Ileus can last from a few hours to a few days. What are the causes? This condition may be caused by: Surgery on the abdomen. An infection or inflammation in the abdomen. This includes inflammation of the lining of the abdomen (peritonitis). Infection or inflammation in other parts of the body, such as pneumonia or pancreatitis. Passage of gallstones or kidney stones. Damage to the nerves or blood vessels that go to the intestines. A collection of blood within the abdominal cavity. Imbalance in the salts in the blood (electrolytes). Injury to the brain or spinal cord. Medicines. Many medicines, including strong pain medicines, can cause ileus or make it worse. If the intestines stop working because of a blockage, that is a different condition that is called a bowel obstruction. What are the signs or symptoms? Symptoms of this condition include: Bloating of the abdomen. Pain or discomfort in the abdomen. Poor appetite. Nausea and vomiting. Lack of normal bowel sounds, such as growling in the stomach. How is this diagnosed? This condition may be diagnosed with: A physical exam and medical history. X-rays or a CT scan of the abdomen. You may also have other tests to help find the cause of the condition. How is this treated? This condition may be treated by: Resting the intestines until they start to work again. This is often done by: ?Stopping oral intake of food and drink. You will be given fluid through an IV to prevent dehydration. ?Placing a small tube (nasogastric tube or NG tube) that is passed through your nose and into your stomach. The tube is attached to a suction device and keeps the stomach emptied out. This allows thebowels to rest and helps to reduce nausea and vomiting. Correcting any electrolyte imbalance by giving supplements in the IV fluid. Stopping any medicines that might make ileus worse. Treating any condition that may have caused ileus. Follow these instructions at home: Eating and drinking Follow instructions from your health care provider about: ?What to eat and drink. You may be told to start eating a bland diet. Over time, you may slowly resume a more normal, healthy diet. ?How much to eat and drink. You should eat small meals often and stop eating when you feel full. Avoid alcohol. General instructions Take lbpy-xoh-oingroh and prescription medicines only as told by your health care provider. Rest as told by your health care provider. Avoid sitting for a long time without moving. Get up to take short walks every 1 2 hours. Ask for help if you feel weak or unsteady. Keep all follow-up visits as told by your health care provider. This is important. Contact a health care provider if: You have nausea, vomiting, or abdominal discomfort. You have a fever. Get help right away if: You have severe abdominal pain or bloating. You cannot eat or drink without vomiting. Summary Ileus is a condition that happens when the intestines, which are also called bowels, stop working correctly. When ileus occurs, the muscular contractions that cause food to move through the intestines do not happen as they normally would. Ileus can cause symptoms such as nausea, abdominal pain, and bloating. Treatment may involve getting IV fluids and having a nasogastric tube placed to keep your stomach emptied out until the intestines start working again. This information is not intended to replace advice given to you by your health care provider. Make sure you discuss any questions you have with your health care provider. Document Released: 07/31/2004 Document Revised: 11/24/2018 Document Reviewed: 11/24/2018 [employer] Patient Education 2020 [employer] Follow Up Care 09/05/2021 05:31:31 With:SP POPE DO Address: [address] [facility] [place] [address]- [phone] When:09/21/2021 10:30:00 Comments:Follow-up as scheduled [facility] 01-25-2022 Evaluation + Plan noteExtracted from: Title:History and Physical Author:MOHINI GUAN APRN-BUILDING PRINCIPAL Date:09/05/21 1. Ileus 2. Fkqaq-si-ssrvecc kidney injury 3. Hypertension 4. COPD without exacerbation 5. BPH (benign prostatic hyperplasia) 6. Hyperlipidemia 7. Depression Adynamic ileus patient will be n.p.o. Add normal saline at 100 mL's per hour. Encourage patient to ambulate. Given that patient is still nauseated and distended, insert nasogastric tube for decompression. Acute on chronic kidney injury-Baseline creatinine is 1.3-1.4. Currently elevated to 1.9. Continue IV fluids and repeat BMP tomorrow. Hypertension while patient is n.p.o. hold amlodipine 10 mg. Patient's blood pressures adequately controlled. COPD not in acute exacerbation. Patient utilizes BiPAP 07/19 at home at bedtime. Nursing staff asked patient's family member to bring this in. BPH Hold home medications while n.p.o. Hyperlipidemia hold statin while n.p.o. Depression hold home dose of sertraline while n.p.o. DVT prophylaxis:SCDs Labs, diagnostics, and progress notes reviewed as noted in HPI Code Status: Full code Plan of care discussed with patient. All questions answered. Patient verbalizes understanding is agreeable to plan of care. Discussed with collaborating physician, Dr. Juan Sullivan This dictation was performed using voice recognition software and may include grammatical and/or spelling errors. Future Appointments Appointment Date:09/21/2021 10:30:00 AM Scheduled Provider:SP POPE DO Location:[facility] Appointment Type:[facility] Hospital Follow-Up Appointment Date:10/25/2021 10:30:00 AM Scheduled Provider:SP POPE DO Location:[facility] Appointment Type: OV Appointment Date:11/09/2021 11:30:00 AM Scheduled Provider:BALBIR STOVALL MD Location:[facility] Appointment Type:[facility] Future Scheduled Tests Laboratory* Cross-Linked N-Telopeptide Urine 11/08/21 * Thyroid Stimulating Hormone 11/08/21 * Free T4 11/08/21 * Lipid Profile 11/08/21 * Vitamin D Level 11/08/21 * Complete Metabolic Panel 11/08/21 * [facility] [place] [place] Lab Send out (Blood Specimens) 07/26/21 Radiology* XR Chest 2 Views (PA & Lateral) 12/27/20 [facility] 12-10-2021 Hospital Discharge instructions Patient Education 07/21/2021 17:39:47 Weakness (Uncertain Cause) Weakness with Uncertain Cause Based on your exam today, the exact cause of your weakness is not certain. But your weakness does not seem to be a sign of a serious illness at this time. Keep an eye on your symptoms and get medicaladvice as instructed below. Home care Rest at home today. Don't over-exert yourself. Take any medicine as prescribed. For the next few days, drink extra fluids (unless your healthcare provider wants you to restrict fluids for other reasons). Don't skip meals. Unless otherwise directed, continue to take any prescription medicines. Contact your healthcare provider if you have any questions or concerns. Follow-up care Follow up with your healthcare provider, or as advised. When to seek medical advice Call your healthcare provider right away for any of the following: Symptoms get worse Symptoms don't start getting better within 2 days Fever of 100.4 F (38 C) or higher, or as directed by your healthcare provider Call 911 Call 911 for any of these: Chest, arm, neck, jaw, or upper back pain Trouble breathing Numbness or weakness of the face, one arm, or one leg Slurred speech, confusion, or trouble speaking, walking, or seeing Blood in vomit or stool (black or red color) Loss of consciousness Severe headache [id number] [employer] [address] [place] [id number]. All rights reserved. This information is not intended as a substitute for professional medical care. Always follow yourhealthcare professional's instructions. Follow Up Care 07/21/2021 13:11:45 With:SP POPE Address:Unknown When:2-4 days Comments:Schedule an appointment for close follow-up.Drink plenty of fluids and rest.Use Tylenol or Advil for fever as needed.Continue all of your current medications.Return to the ED if symptoms worsen. [facility] Evaluation + Plan note Future Appointments Appointment Date:06/07/2021 11:30:00 AM Scheduled Provider:SP POPE DO Location:[facility] Appointment Type:PC OV Appointment Date:11/09/2021 11:30:00 AM Scheduled Provider:BALBIR STOVALL MD Location:[facility] Appointment Type:ENDO OV Future Scheduled Tests Laboratory* Cross-Linked N-Telopeptide Urine 11/08/21 * Thyroid Stimulating Hormone 11/08/21 * Free T4 11/08/21 * Lipid Profile 11/08/21 * Vitamin D Level 11/08/21 * Complete Metabolic Panel 11/08/21 Radiology* XR Chest 2 Views (PA & Lateral) 12/27/20 [facility] Evaluation + Plan note Future Appointments Appointment Date:06/28/2021 10:00:00 AM Scheduled Provider: Location:[facility] Appointment Type:COVID AMB VACCINE Appointment Date:07/26/2021 10:00:00 AM Scheduled Provider:SP POPE DO Location:[facility] Appointment Type:PC OV Appointment Date:11/09/2021 11:30:00 AM Scheduled Provider:BALBIR STOVALL MD Location:[facility] Appointment Type:ENDO OV Future Scheduled Tests Laboratory* Cross-Linked N-Telopeptide Urine 11/08/21 * Thyroid Stimulating Hormone 11/08/21 * Free T4 11/08/21 * Lipid Profile 11/08/21 * Vitamin D Level 11/08/21 * Complete Metabolic Panel 11/08/21 Radiology* XR Chest 2 Views (PA & Lateral) 12/27/20 [facility] Evaluation + Plan note Future Appointments Appointment Date:07/26/2021 10:00:00 AM Scheduled Provider:SP POPE DO Location:[facility] Appointment Type:PC OV Appointment Date:11/09/2021 11:30:00 AM Scheduled Provider:BALBIR STOVALL MD Location:[facility] Appointment Type:ENDO OV Future Scheduled Tests Laboratory* Cross-Linked N-Telopeptide Urine 11/08/21 * Thyroid Stimulating Hormone 11/08/21 * Free T4 11/08/21 * Lipid Profile 11/08/21 * Vitamin D Level 11/08/21 * Complete Metabolic Panel 11/08/21 Radiology* XR Chest 2 Views (PA & Lateral) 12/27/20 [facility] Evaluation + Plan note Future Appointments Appointment Date:10/25/2021 10:30:00 AM Scheduled Provider:SP POPE DO Location:[facility] Appointment Type:PC OV Appointment Date:11/09/2021 11:30:00 AM Scheduled Provider:BALBIR STOVALL MD Location:[facility] Appointment Type:ENDO OV Diagnostic Tests Pending * .CBC Path Review 08/01/21 Future Scheduled Tests Laboratory* Cross-Linked N-Telopeptide Urine 11/08/21 * Thyroid Stimulating Hormone 11/08/21 * Free T4 11/08/21 * Lipid Profile 11/08/21 * Vitamin D Level 11/08/21 * Complete Metabolic Panel 11/08/21 * [facility] [place] [place] Lab Send out (Blood Specimens) 07/26/21 Radiology* XR Chest 2 Views (PA & Lateral) 12/27/20 [facility] Evaluation + Plan note Future Appointments Appointment Date:11/09/2021 11:30:00 AM Scheduled Provider:BALBIR STOVALL MD Location:[facility] Appointment Type:ENDO OV Appointment Date:12/12/2021 10:00:00 AM Scheduled Provider:SP POPE DO Location:[facility] Appointment Type:PC OV Diagnostic Tests Pending * Cross-Linked N-Telopeptide Urine 11/01/21 Future Scheduled Tests Laboratory* [facility] Lab Send out (Blood Specimens) 07/26/21 Radiology* XR Chest 2 Views (PA & Lateral) 12/27/20 [facility] Evaluation + Plan note Future Appointments Appointment Date:12/12/2021 10:00:00 AM Scheduled Provider:SP POPE DO Location:[facility] Appointment Type:PC OV Appointment Date:05/10/2022 11:30:00 AM Scheduled Provider:BALBIR STOVALL MD Location:[facility] Appointment Type:ENDO OV Future Scheduled Tests Laboratory* Thyroid Stimulating Hormone 01/04/22 * Thyroid Stimulating Hormone 05/11/22 * Free T4 05/11/22 * Free T4 01/04/22 * Free T3 05/11/22 * Lipid Profile 05/11/22 * Vitamin D Level 05/11/22 * Complete Metabolic Panel 05/11/22 * [facility] Lab Send out (Blood Specimens) 07/26/21 Radiology* XR Chest 2 Views (PA & Lateral) 12/27/20 [facility] Evaluation + Plan note Future Appointments Appointment Date:04/03/2022 10:30:00 AM Scheduled Provider:SP POPE DO Location:[facility] Appointment Type:PC Wellness Medicare Appointment Date:05/10/2022 11:30:00 AM Scheduled Provider:BALBIR STOVALL MD Location:[facility] Appointment Type:ENDO OV Future Scheduled Tests Laboratory* Thyroid Stimulating Hormone 05/11/22 * Free T4 05/11/22 * Free T3 05/11/22 * Lipid Profile 05/11/22 * Vitamin D Level 05/11/22 * Complete Metabolic Panel 05/11/22 * [facility] Lab Send out (Blood Specimens) 07/26/21 Radiology* XR Chest 2 Views (PA & Lateral) 12/27/20 [facility] Evaluation + Plan note Future Appointments Appointment Date:04/03/2022 10:30:00 AM Scheduled Provider:SP POPE DO Location:[facility] Appointment Type: Wellness Medicare Appointment Date:05/10/2022 11:30:00 AM Scheduled Provider:BALBIR STOVALL MD Location:[facility] Appointment Type:ENDO OV Future Scheduled Tests Laboratory* Thyroid Stimulating Hormone 05/11/22 * Free T4 05/11/22 * Free T3 05/11/22 * Lipid Profile 05/11/22 * Vitamin D Level 05/11/22 * Complete Metabolic Panel 05/11/22 * [facility] Lab Send out (Blood Specimens) 07/26/21 [facility] Evaluation + Plan note Future Appointments Appointment Date:03/01/2022 03:00:00 PM Scheduled Provider:DELBRET CHAKRABORTY MD Location[facility] Appointment Type:GS OV Check after Test Appointment Date:04/03/2022 10:30:00 AM Scheduled Provider:SP POPE DO Location:[facility] Appointment Type:PC Wellness Medicare Appointment Date:05/10/2022 11:30:00 AM Scheduled Provider:BALBIR STOVALL MD Location:[facility] Appointment Type:ENDO OV Future Scheduled Tests Laboratory* Thyroid Stimulating Hormone 05/11/22 * Free T4 05/11/22 * Free T3 05/11/22 * Lipid Profile 05/11/22 * Vitamin D Level 05/11/22 * Complete Metabolic Panel 05/11/22 * [facility] Lab Send out (Blood Specimens) 07/26/21 [facility] Evaluation + Plan note Future Appointments Appointment Date:04/03/2022 10:30:00 AM Scheduled Provider:SP POPE DO Location:[facility] Appointment Type:PC Wellness Medicare Appointment Date:04/05/2022 01:00:00 PM Scheduled Provider:DELBERT CHAKRABORTY MD Location:[facility] Appointment Type:GS OV Appointment Date:05/10/2022 11:30:00 AM Scheduled Provider:BALBIR STOVALL MD [facility] Appointment Type:[facility] OV Future Scheduled Tests Laboratory* Thyroid Stimulating Hormone 05/11/22 * Free T4 05/11/22 * Free T3 05/11/22 * Lipid Profile 05/11/22 * Vitamin D Level 05/11/22 * Complete Metabolic Panel 05/11/22 * [facility] [place] [place] Lab Send out (Blood Specimens) 07/26/21 Radiology* PET/CT Initial Staging Tumor Skull Base to Mid-Thigh 03/29/22 * PET/CT Initial Staging Tumor WB Head to Toe 03/28/22 * PET/CT Initial Staging Tumor WB Head to Toe 03/07/22 [facility] Evaluation + Plan note Future Appointments Appointment Date:10/17/2022 11:30:00 AM Scheduled Provider: Location:[facility] Appointment Type:CT Abdomen and Pelvis w/ Contrast Appointment Date:11/01/2022 01:00:00 PM Scheduled Provider:DELBERT CHAKRABORTY MD Location:[facility] Appointment Type:GS OV Check after Test Appointment Date:11/08/2022 11:30:00 AM Scheduled Provider:BALBIR STOVALL MD Location[facility] Appointment Type:ENDO OV Appointment Date:04/02/2023 11:00:00 AM Scheduled Provider:SP POPE DO Location:[facility] Appointment Type:PC OV Future Scheduled Tests Laboratory* Cross-Linked N-Telopeptide Urine 11/07/22 * Thyroid Stimulating Hormone 10/02/22 * Thyroid Stimulating Hormone 11/07/22 * Free T4 10/02/22 * Free T4 11/07/22 * Uric Acid 10/02/22 * A1C Hemoglobin 10/02/22 * A1C Hemoglobin 11/07/22 * Complete Blood Count 10/02/22 * Creatinine Random Urine 11/07/22 * Lipid Profile 10/02/22 * PTH, Intact 10/02/22 * PTH, Intact 11/07/22 * Vitamin D Level 10/02/22 * Vitamin D Level 11/07/22 * Complete Metabolic Panel 10/02/22 * Complete Metabolic Panel 11/07/22 Radiology* CT Abdomen and Pelvis w/ contrast 10/17/22 [facility] Evaluation + Plan note Future Appointments Appointment Date:05/06/2023 01:20:00 PM Scheduled Provider:DELBERT CHAKRABORTY MD Location:[facility] Appointment Type:GS OV Check after Test Appointment Date:10/01/2023 10:00:00 AM Scheduled Provider:SP POPE DO Location:[facility] Appointment Type:PC OV Future Scheduled Tests Laboratory* Cross-Linked N-Telopeptide Urine 11/07/22 * Thyroid Stimulating Hormone 11/07/22 * Free T4 11/07/22 * A1C Hemoglobin 11/07/22 * Creatinine Random Urine 11/07/22 * PTH, Intact 11/07/22 * Vitamin D Level 11/07/22 * Complete Metabolic Panel 11/07/22 Radiology* CT Abdomen and Pelvis w/ contrast 04/12/23 [facility] Evaluation + Plan note Future Appointments Appointment Date:05/06/2023 01:20:00 PM Scheduled Provider:DELBERT CHAKRABORTY MD Location:[facility] Appointment Type:GS OV Check after Test Appointment Date:10/01/2023 10:00:00 AM Scheduled Provider:SP POPE DO Location:[facility] Appointment Type:PC OV Future Scheduled Tests Laboratory* Cross-Linked N-Telopeptide Urine 11/07/22 * Thyroid Stimulating Hormone 11/07/22 * Free T4 11/07/22 * A1C Hemoglobin 11/07/22 * Creatinine Random Urine 11/07/22 * PTH, Intact 11/07/22 * Vitamin D Level 11/07/22 * Complete Metabolic Panel 11/07/22 [facility] Notedaluation + Plan note Future Appointments Appointment Date:11/04/2023 11:30:00 AM Scheduled Provider: Location:[facility] Appointment Type:CT Abdomen and Pelvis w/ Contrast Appointment Date:11/14/2023 01:00:00 PM Scheduled Provider:DELBERT CHAKRABORTY MD Location:[facility] Appointment Type:GS OV Check after Test Appointment Date:12/25/2023 10:30:00 AM Scheduled Provider:SP POPE DO Location:[facility] Appointment Type:PC Wellness Medicare Appointment Date:03/31/2024 11:00:00 AM Scheduled Provider:SP POPE DO Location:[facility] Appointment Type:PC OV Diagnostic Tests Pending * Urine Culture 10/02/23 Future Scheduled Tests Radiology* CT Abdomen and Pelvis w/ contrast 11/04/23 [facility] Evaluation + Plan note Future Appointments Appointment Date:10/15/2023 07:45:00 AM Scheduled Provider: Location:[facility] Appointment Type:HL Plain Stress Test Appointment Date:10/22/2023 10:00:00 AM Scheduled Provider: Location:[facility] Appointment Type:Echo - Echocardiogram Adult Appointment Date:10/22/2023 11:00:00 AM Scheduled Provider: Location:[facility] Appointment Type:VL - Carotid US/Doppler Complete Appointment Date:11/04/2023 11:30:00 AM Scheduled Provider: Location:[facility] Appointment Type:CT Abdomen and Pelvis w/ Contrast Appointment Date:11/14/2023 01:00:00 PM Scheduled Provider:DELBERT CHAKRABORTY MD Location:[facility] Appointment Type:GS OV Check after Test Appointment Date:12/25/2023 10:30:00 AM Scheduled Provider:SP POPE DO [facility] Appointment Type: Wellness Medicare Appointment Date:03/31/2024 11:00:00 AM Scheduled Provider:SP POPE DO Location:[facility] Appointment Type:PC OV Future Scheduled Tests Radiology* CT Abdomen and Pelvis w/ contrast 11/04/23 [facility] Evaluation + Plan note Future Appointments Appointment Date:10/22/2023 10:00:00 AM Scheduled Provider: Location:[facility] Appointment Type:Echo - Echocardiogram Adult Appointment Date:10/22/2023 11:00:00 AM Scheduled Provider: Location:[facility] Appointment Type:VL - Carotid US/Doppler Complete Appointment Date:11/04/2023 11:30:00 AM Scheduled Provider: Location:[facility] Appointment Type:CT Abdomen and Pelvis w/ Contrast Appointment Date:11/14/2023 01:00:00 PM Scheduled Provider:DELBERT CHAKRABORTY MD Location:[facility] Appointment Type:GS OV Check after Test Appointment Date:12/25/2023 10:30:00 AM Scheduled Provider:SP POPE DO [facility] Appointment Type:PC Wellness Medicare Appointment Date:03/31/2024 11:00:00 AM Scheduled Provider:SP POEP DO Location:[facility] Appointment Type:PC OV Future Scheduled Tests Radiology* CT Abdomen and Pelvis w/ contrast 11/04/23 [facility] Evaluation + Plan note Future Appointments Appointment Date:11/04/2023 11:30:00 AM Scheduled Provider: Location:[facility] Appointment Type:CT Abdomen and Pelvis w/ Contrast Appointment Date:11/14/2023 01:00:00 PM Scheduled Provider:DELBERT CHAKRABORTY MD Location:[facility] Appointment Type:GS OV Check after Test Appointment Date:12/25/2023 10:30:00 AM Scheduled Provider:SP POPE DO Location:[facility] Appointment Type: Wellness Medicare Appointment Date:03/31/2024 11:00:00 AM Scheduled Provider:SP POPE DO Location:[facility] Appointment Type:PC OV Future Scheduled Tests Radiology* CT Abdomen and Pelvis w/ contrast 11/04/23 [facility] Evaluation + Plan note Future Appointments Appointment Date:12/25/2023 10:30:00 AM Scheduled Provider:SP POPE DO Location:[facility] Appointment Type:PC Wellness Medicare Appointment Date:03/31/2024 11:00:00 AM Scheduled Provider:SP POPE DO Location:[facility] Appointment Type:PC OV [facility] Evaluation + Plan note Future Appointments Appointment Date:01/09/2024 01:20:00 PM Scheduled Provider:DELBERT CHAKRABORTY MD Location:[facility] Appointment Type:GS OV Appointment Date:04/28/2024 09:00:00 AM Scheduled Provider:SP POPE DO Location:[facility] Appointment Type:PC OV Future Scheduled Tests Laboratory* Calcium Level Ionized 12/25/23 * Thyroid Stimulating Hormone 12/25/23 * Free T4 12/25/23 * Uric Acid 12/25/23 * A1C Hemoglobin 12/25/23 * Complete Blood Count 12/25/23 * Lipid Profile 12/25/23 * Albumin/Creatinine Ratio, Random Urine 12/25/23 * PTH, Intact 12/25/23 * Vitamin D Level 12/25/23 * Complete Metabolic Panel 12/25/23 [facility] Evaluation + Plan note Future Appointments Appointment Date:10/20/2024 10:00:00 AM Scheduled Provider:SP POPE DO Location:[facility] Appointment Type:PC OV Appointment Date:02/15/2025 11:00:00 AM Scheduled Provider: Location:[facility] Appointment Type:CT Abdomen and Pelvis w/ Contrast Appointment Date:02/22/2025 01:00:00 PM Scheduled Provider:DELBERT CHAKRABORTY MD Location:[facility] Appointment Type:GS OV Follow Up Future Scheduled Tests Radiology* CT Abdomen and Pelvis w/ contrast 02/15/25 [facility] Evaluation + Plan note Future Appointments Appointment Date:10/20/2024 10:00:00 AM Scheduled Provider:SP POPE DO Location:[facility] Appointment Type:PC OV Appointment Date:02/15/2025 11:00:00 AM Scheduled Provider: Location:[facility] Appointment Type:CT Abdomen and Pelvis w/ Contrast Appointment Date:02/22/2025 01:00:00 PM Scheduled Provider:DELBERT CHAKRABORTY MD Location[facility] [facility] Appointment Type:GS OV Follow Up Future Scheduled Tests Laboratory* Urine Microscopic 08/24/24 * Urine Culture 08/24/24 Radiology* CT Abdomen and Pelvis w/ contrast 02/15/25 [facility] Beauty Notedaluation + Plan note Future Appointments Appointment Date:10/20/2024 10:00:00 AM Scheduled Provider:SP POPE DO Location:[facility] Appointment Type:PC OV Appointment Date:02/15/2025 11:00:00 AM Scheduled Provider: Location:[facility] Appointment Type:CT Abdomen and Pelvis w/ Contrast Appointment Date:02/22/2025 01:00:00 PM Scheduled Provider:DELBERT CHAKRABORTY MD Location:[facility] Appointment Type:GS OV Follow Up Diagnostic Tests Pending * A1C Hemoglobin 09/15/24 Future Scheduled Tests Laboratory* Urine Microscopic 08/24/24 * Urine Culture 08/24/24 Radiology* CT Abdomen and Pelvis w/ contrast 02/15/25 [facility] Evaluation + Plan note Future Appointments Appointment Date:02/15/2025 11:00:00 AM Scheduled Provider: Location:[facility] Appointment Type:CT Abdomen and Pelvis w/ Contrast Appointment Date:02/22/2025 01:00:00 PM Scheduled Provider:DELBERT CHAKRABORTY MD Location:[facility] Appointment Type:GS OV Follow Up Appointment Date:03/02/2025 09:00:00 AM Scheduled Provider:SP POPE DO Location:[facility] Appointment Type:PC OV Follow Up Appointment Date:04/20/2025 11:00:00 AM Scheduled Provider:SP POPE DO Location:[facility] Appointment Type:PC OV Future Scheduled Tests Laboratory* Prostate Specific Antigen 01/06/25 * Thyroid Stimulating Hormone 01/06/25 * Free T4 01/06/25 * Uric Acid 01/06/25 * A1C Hemoglobin 01/06/25 * Complete Blood Count 01/06/25 * Lipid Profile 01/06/25 * Albumin/Creatinine Ratio, Random Urine 01/06/25 * PTH, Intact 01/06/25 * Vitamin D Level 01/06/25 * Complete Metabolic Panel 01/06/25 Radiology* NM Myocardial Spect Rest/Stress 01/06/25 * CT Abdomen and Pelvis w/ contrast 02/15/25 [facility] Evaluation + Plan note Future Appointments Appointment Date:02/25/2025 01:50:00 PM Scheduled Provider:DELBERT CHAKRABORTY MD Location:[facility] Appointment Type:GS OV Follow Up Appointment Date:03/02/2025 09:00:00 AM Scheduled Provider:SP POPE DO Location:[facility] Appointment Type:PC OV Follow Up Appointment Date:04/20/2025 11:00:00 AM Scheduled Provider:SP POPE DO Location:[facility] Appointment Type:PC OV Appointment Date:05/13/2025 08:30:00 AM Scheduled Provider: Location:[facility] Appointment Type:NM Myocardial Spect Rest/Stress Meg Future Scheduled Tests Laboratory* Prostate Specific Antigen 01/06/25 * Thyroid Stimulating Hormone 01/06/25 * Free T4 01/06/25 * Uric Acid 01/06/25 * A1C Hemoglobin 01/06/25 * Complete Blood Count 01/06/25 * Lipid Profile 01/06/25 * Albumin/Creatinine Ratio, Random Urine 01/06/25 * PTH, Intact 01/06/25 * Vitamin D Level 01/06/25 * Complete Metabolic Panel 01/06/25 Radiology* NM Myocardial Spect Rest/Stress 05/13/25 [facility] Evaluation + Plan note Future Appointments Appointment Date:02/25/2025 01:50:00 PM Scheduled Provider:DELBERT CHAKRABORTY MD Location:[facility] Appointment Type:GS OV Follow Up Appointment Date:03/02/2025 09:00:00 AM Scheduled Provider:SP POPE DO Location:[facility] Appointment Type:PC OV Follow Up Appointment Date:04/20/2025 11:00:00 AM Scheduled Provider:SP POPE DO Location:[facility] Appointment Type:PC OV Appointment Date:05/13/2025 08:30:00 AM Scheduled Provider: Location:[facility] Appointment Type:NM Myocardial Spect Rest/Stress Meg Future Scheduled Tests Laboratory* Albumin/Creatinine Ratio, Random Urine 01/06/25 Radiology* NM Myocardial Spect Rest/Stress 05/13/25 [facility] Evaluation + Plan note Future Appointments Appointment Date:04/20/2025 11:00:00 AM Scheduled Provider:SP POPE DO Location:[facility] Appointment Type:PC OV Appointment Date:05/13/2025 08:30:00 AM Scheduled Provider: Location:[facility] Appointment Type:NM Myocardial Spect Rest/Stress Meg Appointment Date:05/31/2025 02:00:00 PM Scheduled Provider:SP POPE DO Location:[facility] Appointment Type:PC OV Pre Op Appointment Date:06/21/2025 01:00:00 PM Scheduled Provider:DELBERT CHAKRABORTY MD Location:[facility] Appointment Type:GS OV Pre Op Appointment Date:09/07/2025 11:00:00 AM Scheduled Provider:SP POPE DO Location:[facility] Appointment Type:PC OV Future Scheduled Tests Laboratory* Albumin/Creatinine Ratio, Random Urine 09/02/25 * Albumin/Creatinine Ratio, Random Urine 01/06/25 Radiology* NM Myocardial Spect Rest/Stress 05/13/25 * CT Abdomen and Pelvis w/ contrast 08/26/25 [facility] evaluation + Plan note Future Appointments Appointment Date:05/31/2025 02:00:00 PM Scheduled Provider:SP POPE DO Location:[facility] Appointment Type:PC OV Pre Op Appointment Date:06/21/2025 01:00:00 PM Scheduled Provider:DELBERT CHAKRABORTY MD Location:[facility] Appointment Type:GS OV Pre Op Appointment Date:09/07/2025 11:00:00 AM Scheduled Provider:SP POPE DO Location:[facility] Appointment Type:PC OV Future Scheduled Tests Laboratory* Albumin/Creatinine Ratio, Random Urine 09/02/25 * Albumin/Creatinine Ratio, Random Urine 01/06/25 Radiology* CT Abdomen and Pelvis w/ contrast 08/26/25 [facility] Hospital course Narrative No data available for this section [facility] Discharge instructions No data available for this section [facility] Progress note No data available for this section [facility] Summary Purpose Family History No Family History Records Found Advance Directives No Advanced Directives Records FoundNo Advanced Directives Records FoundNo Advanced Directives Records FoundNo Advanced Directives Records Found Additional Source Comments Care Team (unrecognized sect ion and content) Personnel Name: NORRISSWETHASP Address: [address] [place] [address] Name: Charlie More PT Personnel Name: SP POPE DO Address: [address] [place] [address] Name: Charlie More PT Personnel Name: SP POPE DO Address: [address] [place] [address] Name: Charlie More PT Personnel Name: SP POPE DO Address: [address] [place] [address] Name: Charlie More PT Care Team Personnel Name: Charlie More PT Position: P3 Scheduling - Truck Driver Advanced Member Role: Other Name: SP POPE DO Position: P4 Physician - Primary Care Member Role: Primary Care Physician Address: Address: [address] [place] [address] Name: DELBERT CHAKRABORTY MD Position: P4 Physician - General Surgery Member Role: Surgeon Address: Address: [address] [facility] [place] [address]- Name: CRYSTAL PALMER MD Position: P3 Physician - Urologist Member Role: Urologist Address: Address: [address] [place] [address]- Care Team Related Persons Name: DEANDRAYinaANDREW BALDERAS Address: Home [address] [place], [place] [phone] [place] Care Team Personnel Name: Charlie Morerk Radha PT Position: P3 Scheduling - Truck Driver Advanced Member Role: Other Name: SP POPE DO Position: P4 Physician - Primary Care Member Role: Primary Care Physician Address: Address: [address] [place] [address] Name: DELBERT CHAKRABORTY MD Position: P4 Physician - General Surgery Member Role: Surgeon Address: Address: [address] [facility] [place] [address]- Name: CRYSTAL PALMER MD Position: P3 Physician - Urologist Member Role: Urologist Address: Address: [address] [place] [address]- Care Team Related Persons Name: DEANDRACHAZANDREW Address: Home [address] [place], [place] [phone] [place] Care Team Personnel Name: Charlie Morerk Radha PT Position: P3 Scheduling - Truck Driver Advanced Member Role: Other Name: SP POPE DO Position: P4 Physician - Primary Care Member Role: Primary Care Physician Address: Address: [address] [place] [address] Name: DELBERT CHAKRABORTY MD Position: P4 Physician - General Surgery Member Role: Surgeon Address: Address: [address] [facility] [place] [address]- Name: CRYSTAL PALMER MD Position: P3 Physician - Urologist Member Role: Urologist Address: Address: [address] [place] [address]- Care Team Related Persons Name: DEANDRACHAZANDREW Address: Home [address] [place], [place] [phone] [place] Care Team Personnel Name: Charlie More PT Position: P3 Scheduling - Truck Driver Advanced Member Role: Other Name: SP POPE DO Position: P4 Physician - Primary Care Member Role: Primary Care Physician Address: Address: [address] [place] [address]- Name: DELBERT CHAKRABORTY MD Position: P4 Physician - General Surgery Member Role: Surgeon Address: Address: [address] [facility] [place] [address]- Name: CRYSTAL PALMER MD Position: P3 Physician - Urologist Member Role: Urologist Address: Address: [address] [place] [address] [address] [place] [phone]- Care Team Related Persons Name: SHELIAANDREW Address: [place] [address] [place], [place] [phone] [place] Care Team Personnel Name: Charlie More PT Position: P3 Scheduling - Truck Driver Advanced Member Role: Other Name: SP POPE DO Position: P4 Physician - Primary Care Member Role: Primary Care Physician Address: Address: [address] [place] [address]- Name: DELBERT CHAKRABORTY MD Position: P4 Physician - General Surgery Member Role: Surgeon Address: Address: [address] [facility] [place] [address]- Name: CRYSTAL PALMER MD Position: P3 Physician - Urologist Member Role: Urologist Address: Address: [address] [place] [address] [address] [place] [phone]- Care Team Related Persons Name: ANDREW BASS Address: Home [address] [place], [place] [phone] [place] Care Team Personnel Name: Charlie More PT Position: P3 Scheduling - Truck Driver Advanced Member Role: Other Name: SP POPE DO Position: P4 Physician - Primary Care Member Role: Primary Care Physician Address: Address: [address] [place] [address]- Name: DELBERT CHAKRABORTY MD Position: P4 Physician - General Surgery Member Role: Surgeon Address: Address: [address] [facility] [place] [address]- Name: CRYSTAL PALMER MD Position: P3 Physician - Urologist Member Role: Urologist Address: Address: [address] [place], [place] [phone]- Care Team Related Persons Name: ANDREW BASS Address: [place] [address] [place], [place] [phone] [place] Care Team Personnel Name: Charlie More Clerk Radha PT Position: P3 Scheduling - Truck Driver Advanced Member Role: Other Name: SP POPE DO Position: P4 Physician - Primary Care Member Role: Primary Care Physician Address: Address: [address] [place] [address] Name: DELBERT CHAKRABORTY MD Position: P4 Physician - General Surgery Member Role: Surgeon Address: Address: [address] [facility] [place] [address]- Name: CRYSTAL PALMER MD Position: P3 Physician - Urologist Member Role: Urologist Address: Address: [address] [place], [place] [phone]- Care Team Related Persons Name: ANDREW BASS Address: [facility] [address] [place] [phone] [place] Care Team Personnel Name: Charlie Morerk Radha PT Position: P3 Scheduling - Truck Driver Advanced Member Role: Other Name: SP POPE DO Position: P4 Physician - Primary Care Member Role: Primary Care Physician Address: Address: [address] [place] [address]- Name: DELBERT CHAKRABORTY MD Position: P4 Physician - General Surgery Member Role: Surgeon Address: Address: [address] [facility] [place] [address]- Name: CRYSTAL PALMER MD Position: P3 Physician - Urologist Member Role: Urologist Address: Address: [address] [place], [place] [phone]- Care Team Related Persons Name: ANDREW BASS Address: Home [address] [place], [place] [phone] [place] Care Team Personnel Name: King, Director Instructional Material Radha PT Position: P3 Scheduling - Truck Driver Advanced Member Role: Other Name: SP POPE DO Position: P4 Physician - Primary Care Member Role: Primary Care Physician Address: Address: [address] [place] [address] Name: DELBERT CHAKRABORTY MD Position: P4 Physician - General Surgery Member Role: Surgeon Address: Address: [address] [facility] [address] Name: CRYSTAL PALMER MD Position: P3 Physician - Urologist Member Role: Urologist Address: Address: [address] [place] [address]- Care Team Related Persons Name: ANDREW BASS Address: [facility] [address] [place] [phone] [place] Care Team Personnel Name: Charlie More Clerk Radha PT Position: P3 Scheduling - Truck Driver Advanced Member Role: Other Name: SP POPE DO Position: P4 Physician - Primary Care Member Role: Primary Care Physician Address: Address: [address] [place] [address] Name: DELBERT CHAKRABORTY MD Position: P4 Physician - General Surgery Member Role: Surgeon Address: Address: [address] Name: CRYSTAL PALMER MD Position: P3 Physician - Urologist Member Role: Urologist Address: Address: [address] [place] [address] Care Team Related Persons Name: ANDREW BASS Address: [place] [address] [place] [phone] [place] Care Team Personnel Name: Charlie More Clerk Radha PT Position: P3 Scheduling - Truck Driver Advanced Member Role: Other Name: SP POPE DO Position: P4 Physician - Primary Care Member Role: Primary Care Physician Address: Address: [address] [place] [address] Name: DELBERT CHAKRABORTY MD Position: P4 Physician - General Surgery Member Role: Surgeon Address: Address: [address] [facility] [address] Name: CRYSTAL PALMER MD Position: P3 Physician - Urologist Member Role: Urologist Address: Address: [address] [facility] [address] [place] [address]- [place] Care Team Related Persons Name: DEANDRACHAZANDREW Address: [facility] [address] [place] [phone] Care Team Personnel Name: Derik Director Instructional Material Radha PT Position: P3 Scheduling - Truck Driver Advanced Member Role: Other Name: SP POPE DO Position: P4 Physician - Primary Care Member Role: Primary Care Physician Address: Address: [address] [place] [phone] [place] [address] Name: DELBERT CHAKRABORTY MD Position: P4 Physician - General Surgery Member Role: Surgeon Address: Address: [address] [facility] [address] Name: CRYSTAL PALMER MD Position: P3 Physician - Urologist Member Role: Urologist Address: Address: [address] [place] [address] Care Team Related Persons Name: ANDREW BASS Address: [address] [phone] Care Team Personnel Name: Charlie More Clerk Radha PT Position: P3 Scheduling - Truck Driver Advanced Member Role: Other Name: SP POPE DO Position: P4 Physician - Primary Care Member Role: Primary Care Physician Address: [address] [place] [phone] [place] [address] Telecom: Name: DELBERT CHAKRABORTY MD Position: P4 Physician - General Surgery Member Role: Surgeon Address: [address] [facility] [address] Telecom: Name: CRYSTAL PALMER MD Position: P3 Physician - Urologist Member Role: Urologist Address: [address] [place] [address] [address] [place] [address]- Telecom: Care Team Related Persons Name: ANDREW BASS Care Team Personnel Name: Charlie More Clerk Radha PT Position: P3 Scheduling - Truck Driver Advanced Member Role: Other Name: SP POPE DO Position: P4 Physician - Primary Care Member Role: Primary Care Physician Address: [address] [place] [address]- [place] Telecom: Name: DELBERT CHAKRABORTY MD Position: P4 Physician - General Surgery Member Role: Surgeon Address: [address] [facility] [place] [address]- [place] Telecom: Name: CRYSTAL PALMER MD Position: P3 Physician - Urologist Member Role: Urologist Address: [address] [facility] [address] [place] [address]- [place] Telecom: Care Team Related Persons Name: ANDREW BASS Care Team Personnel Name: Charlie More Clerk Radha PT Position: P3 Scheduling - Truck Driver Advanced Member Role: Other Name: SP POPE DO Position: P4 Physician - Primary Care Member Role: Primary Care Physician Address: [address] [place] [address]- [place] Telecom: Name: DELBERT CHAKRABORTY MD Position: P4 Physician - General Surgery Member Role: Surgeon Address: [address] [facility] [place] [address]- [place] Telecom: Name: CRYSTAL PALMER MD Position: P3 Physician - Urologist Member Role: Urologist Address: [address] [place] [address] [address] [place] [address]- [place] Telecom: Care Team Related Persons Name: ANDREW BASS Care Team Personnel Name: Charlie Morerjazmin Garcia PT Position: P3 Scheduling - Truck Driver Advanced Member Role: Other Name: SP POPE DO Position: P4 Physician - Primary Care Member Role: Primary Care Physician Address: [address] [place] [address]- [place] Telecom: Name: DELBERT CHAKRABORTY MD Position: P4 Physician - General Surgery Member Role: Surgeon Address: [address] [facility] [place] [address]- [place] Telecom: Name: CRYSTAL PALMER MD Position: P3 Physician - Urologist Member Role: Urologist Address: [address] [facility] [address] [place] [address]- [place] Telecom: Care Team Related Persons Name: ANDREW BASS Care Team Personnel Name: Derik, Director Instructional Material Radha PT Position: P3 Scheduling - Truck Driver Advanced Member Role: Other Name: SP POPE DO Position: P4 Physician - Primary Care Member Role: Primary Care Physician Address: [address] Telecom: Name: DELBERT CHAKRABORTY MD Position: P4 Physician - General Surgery Member Role: Surgeon Address: [address] [facility] [address] Telecom: Name: CRYSTAL PALMER MD Position: P3 Physician - Urologist Member Role: Urologist Address: [address] [facility] [address] Telecom: Care Team Related Persons Name: ANDREW BASS Care Team Personnel Name: Derik Director Instructional Material Radha PT Position: P3 Scheduling - Truck Driver Advanced Member Role: Other Name: SP POPE DO Position: P4 Physician - Primary Care Member Role: Primary Care Physician Address: [address] Telecom: Name: DELBERT CHAKRABORTY MD Position: P4 Physician - General Surgery Member Role: Surgeon Address: [address] [facility] [place] [address]- Telecom: Name: CRYSTAL PALMER MD Position: P3 Physician - Urologist Member Role: Urologist Address: [address] [facility] [address] [place] [address]- Telecom: Care Team Related Persons Name: ANDREW BASS Care Team Personnel Name: Derik, Director Instructional Material Radha PT Position: P3 Scheduling - Truck Driver Advanced Member Role: Other Name: SP POPE DO Position: P4 Physician - Primary Care Member Role: Primary Care Physician Address: [address] [place] [address]- [place] Telecom: Name: DELBERT CHAKRABORTY MD Position: P4 Physician - General Surgery Member Role: Surgeon Address: [address] [facility] [place] [address]- [place] Telecom: Name: CRYSTAL PALMER MD Position: P3 Physician - Urologist Member Role: Urologist Address: [address] [facility] [address] [place] [address]- [place] Telecom: Care Team Related Persons Name: ANDREW BASS Care Team Personnel Name: Charlie More Clerk Radha PT Position: P3 Scheduling - Truck Driver Advanced Member Role: Other Name: SP POPE DO Position: P4 Physician - Primary Care Member Role: Primary Care Physician Address: [address] [place] [address]- [place] Telecom: Name: DELBERT CHAKRABORTY MD Position: P4 Physician - General Surgery Member Role: Surgeon Address: [address] [facility] [place] [address]- [place] Telecom: Name: CRYSTAL PALMER MD Position: P3 Physician - Urologist Member Role: Urologist Address: [address] [facility] [address] [place] [address]- [place] Telecom: Care Team Related Persons Name: ANDREW BASS Care Team Personnel Name: Charlie More Clerk Radha PT Position: P3 Scheduling - Truck Driver Advanced Member Role: Other Name: SP POPE DO Position: P4 Physician - Primary Care Member Role: Primary Care Physician Address: [address] [place] [address]- [place] Telecom: Name: DELBERT CHAKRABORTY MD Position: P4 Physician - General Surgery Member Role: Surgeon Address: [address] [facility] [place] [address]- [place] Telecom: Name: CRYSTAL PALMER MD Position: P3 Physician - Urologist Member Role: Urologist Address: [address] [facility] [address] [place] [address]- Telecom: Care Team Related Persons Name: ANDREW BASS Care Team Personnel Name: Charlie More Clerk Radha PT Position: P3 Scheduling - Truck Driver Advanced Member Role: Other Name: SP POPE DO Position: P4 Physician - Primary Care Member Role: Primary Care Physician Address: [address] [place] [address] Telecom: Name: DELBERT CHAKRABORTY MD Position: P4 Physician - General Surgery Member Role: Surgeon Address: [address] [facility] [place] [address]- Telecom: Name: CRYSTAL PALMER MD Position: P3 Physician - Urologist Member Role: Urologist Address: [address] [facility] [address] [place] [phone]- Telecom: Care Team Related Persons Name: ANDREW BASS Care Team (unrecognized sect ion and content) Personnel Name: SP POPE DO Address: Address: [address] [place] [address] Name: Charlie More Radha PT Care Team Personnel Name: Charlie More Radha PT Position: P3 Scheduling - Truck Driver Advanced Member Role: Other Name: SP POPE DO Position: P4 Physician - Primary Care Med Service: Active Provider Member Role: Primary Care Physician Address: Address: [address] [place] [address] Care Team Related Persons Name: ANDREW BASS Address: [address] [phone] Care Team Personnel Name: Charlie More Clerk Radha PT Position: P3 Scheduling - Truck Driver Advanced Member Role: Other Name: SP POPE DO Position: P4 Physician - Primary Care Med Service: Active Provider Member Role: Primary Care Physician Address: Address: [address] [place] [phone] [place] [address] Name: DELBERT CHAKRABORTY MD Position: P4 Physician - General Surgery Med Service: Cindy Quinn M.D. Member Role: Surgeon Address: Address: [address] [facility] [address] [facility] [place] [address]- Care Team Related Persons Name: ANDREW BASS Address: Home [address] [place], [place] [phone] [place] Care Team Personnel Name: Charlie Morerjazmin Garcia PT Position: P3 Scheduling - Truck Driver Advanced Member Role: Other Name: SP POPE DO Position: P4 Physician - Primary Care Member Role: Primary Care Physician Address: Address: [address] [place] [address] Name: DELBERT CHAKRABORTY MD Position: P4 Physician - General Surgery Address: Address: [address] [facility] [address] [facility] General Surgery [place], [place] [address] Name: CRYSTAL PALMER MD Position: P3 Physician - Urologist Address: Address: [address] [place] [address]- Care Team Related Persons Name: ANDREW BASS Address: Home [address] [place], [place] [phone] Care Team Personnel Name: Charlie More PT Position: P3 Scheduling - Truck Driver Advanced Member Role: Other Name: SP POPE DO Position: P4 Physician - Primary Care Member Role: Primary Care Physician Address: Address: [address] [place] [phone] [place] [address] Name: DELBERT CHAKRABORTY MD Position: P4 Physician - General Surgery Member Role: Surgeon Address: Address: [address] [facility] [address] [facility] [place] [address]- Name: CRYSTAL PALMER MD Position: P3 Physician - Urologist Member Role: Urologist Address: Address: [address] [place] [address]- Care Team Related Persons Name: ANDREW BASS Address: Home [address] [place], [place] [phone] [place] (unrecognized sect ion and content) No Status Records FoundNo Status Records FoundNo Status Records FoundNo Status Records Found INFORMATION SOURCE (unrecogn ized section and content) DATE CREATED AUTHOR 02/29/2024 [facility] ([place]) DATE CREATED AUTHOR AUTHOR'S ORGANIZ ATION 05/29/2025 [facility] DATE CREATED AUTHOR AUTHOR'S ORGANIZ ATION 06/05/2025 [facility] DATE CREATED AUTHOR AUTHOR'S ORGANIZ ATION 06/17/2025 [facility] FOR RECORDS PERTAINING TO PATIENTS WHO ARE OR HAVE BEEN ENROLLED IN A CHEMICAL DEPENDENCY/SUBSTANCEABUSE PROGRAM, SOME INFORMATION MAY BE OMITTED. This clinical summary was aggregated from multiple sources. Caution should be exercised in using it in the provision of clinical care. This summary normalizes information from multiple sources, and as a consequence, information in this document may materially change the coding, format and clinical context of patient data. In addition, data may be omitted in some cases. CLINICAL DECISIONS SHOULD BE BASED ON THE PRIMARY CLINICAL RECORDS. [facility] [employer] provides no warranty or guarantee of the accuracy or completeness of information in this document.
--- NOTE | 2025-06-22 06:59 | ECHOD_ITS ---
Reason For Study Reason For Study: DYSPNEA/SOB Procedure This was a 2D Doppler, Color Flow transthoracic echocardiogram. The study was technically difficult. D/T irregular heart rhythm. Exam performed in department. Left Ventricle Normal size and thickness. The left ventricular ejection fraction is 55 %. Normal diastology for age. Right Ventricle Normal right ventricle. Atria There is mild biatrial dilatation. Mitral Valve Mild (1+) mitral valve insufficiency. Tricuspid Valve Mild (1+) tricuspid valve insufficiency. Normal pulmonary artery pressure. Aortic Valve Trisinus/trileaflet aortic valve. Pulmonic Valve The pulmonic valve is not well visualized. Trivial pulmonic valve insufficiency. Great Vessels Normal sized aortic root. Pericardium/Pleural No pericardial effusion. MMode/2D Measurements & Calculations LVIDd: 6.0 cm IVSd: 0.94 cm Ao root diam: 3.3 cm LVIDs: 4.2 cm LVPWd: 0.94 cm FS: 30.6 % LAV(MOD-sp4): 54.8 ml LVAd ap4: 35.4 cm2 LVAd ap2: 34.4 cm2 LVLd ap4: 8.3 cm LVLd ap2: 7.9 cm EDV(MOD-sp4): 124.3 ml EDV(MOD-sp2): 124.3 ml EDV(sp4-el): 128.0 ml EDV(sp2-el): 127.1 ml LVAs ap4: 20.3 cm2 LVAs ap2: 19.5 cm2 LVLs ap4: 6.2 cm LVLs ap2: 6.5 cm ESV(MOD-sp4): 55.9 ml ESV(MOD-sp2): 48.8 ml ESV(sp4-el): 56.1 ml ESV(sp2-el): 49.2 ml EF(MOD-sp4): 55.0 % EF(MOD-sp2): 60.8 % EF(sp4-el): 56.2 % SV(MOD-sp4): 68.4 ml SV(MOD-sp2): 75.5 ml SV(sp4-el): 71.9 ml SI(MOD-sp4): 34.7 ml/m2 SI(MOD-sp2): 38.3 ml/m2 LA A4 area: 19.3 cm2 LA dimension(2D): 4.5 cm RA A4 area: 14.6 cm2 TAPSE: 1.9 cm Time Measurements MV dec time: 0.30 sec Doppler Measurements & Calculations MV E max marcos: 58.4 cm/sec Lat Peak E' Marcos: 9.6 cm/sec Med Peak E' Marcos: 7.7 cm/sec MV A max marcos: 71.3 cm/sec E/E' lat: 6.1 E/E' med: 7.6 MV E/A: 0.82 MV V2 max: 105.3 cm/sec MV P1/2t max marcos: 94.9 cm/sec Ao V2 max: 141.4 cm/sec MV max P.4 mmHg MV P1/2t: 74.6 msec Ao max P.0 mmHg MV V2 mean: 60.2 cm/sec Ao V2 mean: 94.2 cm/sec MV mean P.7 mmHg MV dec slope: 372.7 cm/sec2 Ao mean P.9 mmHg MV V2 VTI: 25.4 cm MVA(P1/2t): 2.9 cm2 Ao V2 VTI: 31.5 cm AV (velocity ratio): 0.80 LV V1 max: 129.3 cm/sec MR max marcos: 556.5 cm/sec PA V2 max: 120.2 cm/sec LV V1 max P.7 mmHg MR max P.9 mmHg LV V1 mean P.4 mmHg MR mean marcos: 442.9 cm/sec LV V1 mean: 71.5 cm/sec MR mean P.4 mmHg LV V1 VTI: 25.2 cm MR VTI: 211.2 cm PI end-d marcos: 106.9 cm/sec TR max marcos: 247.2 cm/sec TR max P.4 mmHg ECHO/Echo Complete Interpretation Summary The left ventricular ejection fraction is 55 %. There is mild biatrial dilatation. Mild (1+) mitral valve insufficiency. Mild (1+) tricuspid valve insufficiency. Ordering Physician: Prateek Castillo Referring Physician: Prateek Bustillos Performed By: Anabela Puga, CORINA, RVT
== END | disposition home or self-care (01) ==
LOC: SL 19:58
PROVIDERS: PCP Student in an Organized Health Care Education/Training Program; Visit Provider Nurse Practitioner Acute Care
DX: G47.33 Obstructive sleep apnea (adult) (pediatric) (principal)
CPT/HCPCS: 95811

== ENCOUNTER → 2025-06-22 | Outpatient (CLI) | payer MEDICARE, OTHER, SELFPAY ==
--- OUTSIDE RECORDS SUMMARY | 2025-06-22 06:57 | XMS RPT_ITS | CCD ---
Author Organization [facility] Care Team Providers Care Carpenter Rough Name Role Phone SP POPE DO Primary Care Physician [phone] Derik PT, Radha Unavailable Unavailable HALKO DO, SP Attending Unavailable HALKO DO, SP Primary Care Unavailable HALKO DO, SP Primary Care Unavailable HALKO DO, SP Attending Unavailable JANICE TILE SHADER-MEDICARE COMPLIANCE AUDITOR, RANDY CEJA Attending U navailable HALKO DO, SP Primary Care Unavailable JANICE TILE SHADER-MEDICARE COMPLIANCE AUDITOR, RANDY CEJA Attending U navailable HALKO DO, SP Primary Care Unavailable BATERS TILE SHADER-MEDICARE COMPLIANCE AUDITOR, BRITTANY Attending Unavailabl e HALKO DO, SP Primary Care Unavailable SOFÍA HERNANDES, DR MONTEJO Consulting Unavailable PALMER HERNANDES, DELBERT Consulting Unavailable JANICE TILE SHADER-MEDICARE COMPLIANCE AUDITOR, RANDY CEJA Attending U navailable HALKO DO, [...] Care Unavailable HALKO DO, SP Attending Unavailable NORRISKO DO, SP Primary Care Unavailable JANICE LIM, RANDY CEJA Attending U juddable TOSHIA DO, SP Primary Care Unavailable NORRISKO DO, SP Primary Care Unavailable PALMER HERNANDES, DELBERT Attending Unavailable PALMER HERNANDES, DELBERT Attending Unavailable TOSHIA SAWYER, SP Primary Care Unavailable Toshia, Sp Primary Care Unavailable Toshia, Sp Referring Unavailable Yovnay FOOD SERVICE, Merly Attending Unavailable Toshia, Sp Referring Unavailable Anna, Sp Attending Unavailable Halstefania, Sp Primary Care Unavailable Castillo, Sp Attending Unavailable Castillo, Sp Referring Unavailable Halstefania, Sp Primary Care Unavailable Yovany FOOD SERVICE, Merly Attending Unavailable Toshia, Sp Primary Care Unavailable Allergies Allergy Classification Reported Allergen(s) Allergy Type Date of Onset Reaction(s) Facility (20 sources) Penicillin; Translations: [penicillins] Drug Allergy rash/hives [facility] (1 source) Penicillins Drug allergy (disorder) 06-17-2025 [facility] Repository Medications Current Medications Medication Drug Class(es) [...] day, # 3 EA, 1 Refill(s), Pharmacy: [facility]/pharmacy #[id number], 175, cm, 04/20/25 11:03:00 EDT, Height, [...] WEEK, # 4 tab(s), 6 Refill(s), Pharmacy: [facility] STORE [id number], 170, cm, 05/11/21 11:43:00 EDT, Height, kg, 05/11/21 11:43:00 EDT, Dosing Weight Start Date: 06/05/21 Status: Ordered Start: 05-11-2021 Fosamax 70 mg oral tablet Dose : 70 mg = 1 tab(s), Oral, qWeek, # 4 tab(s), 6 Refill(s), [id number] 170, cm, 05/11/21 11:43:00 EDT, Height, kg, 05/11/21 11:43:00 EDT, Dosing Weight Start Date: 05/11/21 Status: Ordered 24 hr alfuzosin hydrochloride 10 mg extended release oral tablet (20 sources) alpha-Adrenergic Nelson Start: 10-01-2023 End: 08-29-2025 alfuzosin 10 mg oral tablet, extended release Dose : 10 mg = 1 tab(s), Oral, qDay, # 90 tab(s), 1 Refill(s), Pharmacy: [facility] #[id number], 174.5, cm, 03/02/25 8:56:00 EDT, Height, kg, 03/02/25 8:56:00 EDT, Dosing Weight Start Date: 03/02/25 Stop Date: 08/29/25 Status: Ordered Medication Dispense Status: Completed Quantity: 90.0 Unit: tab(s) Total Allowed Fills: 2 Fills Dispensed: 0 Start: 04-02-2023 End: 09-29-2023 alfuzosin 10 mg oral tablet, extended release Dose : 10 mg = 1 tab(s), Oral, qDay, # 90 tab(s), 1 Refill(s), [id number], 175, cm, 04/02/23 11:06:00 EDT, Height, kg, 04/02/23 11:06:00 EDT, Dosing Weight Start Date: 04/02/23 Stop Date: 09/29/23 Status: Ordered Start: 10-02-2022 End: 03-31-2023 alfuzosin 10 mg oral tablet, extended release Dose : 10 mg = 1 tab(s), Oral, qDay, # 90 tab(s), 1 Refill(s), Pharmacy: [facility] #[id number], 175.3, cm, 10/02/22 11:29:00 EST, Height, kg, 10/02/22 11:29:00 EST, Dosing Weight Start Date: 10/02/22 Stop Date: 03/31/23 Status: Ordered Start: 06-26-2021 End: 09-30-2022 alfuzosin 10 mg oral tablet, extended release Dose : 10 mg = 1 tab(s), Oral, qDay, # 90 tab(s), 1 Refill(s), Pharmacy: [facility]/pharmacy #[id number], 175.3, cm, 04/03/22 10:32:00 EDT, Height, kg, 04/03/22 10:32:00 EDT, Dosing Weight Start Date: 04/03/22 Stop Date: 09/30/22 Status: Ordered Start: 11-21-2020 End: 05-20-2021 alfuzosin 10 mg oral tablet, extended release Dose : 10 mg = 1 tab(s), Oral, qDay, # 90 tab(s), 1 Refill(s), Pharmacy: [facility]/pharmacy #[id number], 175, cm, 11/21/20 10:53:00 EDT, Height, kg, 11/21/20 10:53:00 EDT, Dosing Weight Start Date: 11/21/20 Stop Date: 05/20/21 Status: Ordered allopurinol 100 mg oral tablet (20 sources) Xanthine Oxidase Inhibitor Start: 10-01-2023 End: 08-29-2025 allopurinol 100 mg oral tablet Dose : 100 mg = 1 tab(s), Oral, qDayPC, # 90 tab(s), 1 Refill(s), [id number], 174.5, cm, 03/02/25 8:56:00 EDT, Height, kg, 03/02/25 8:56:00 EDT, Dosing Weight Start Date: 03/02/25 Stop Date: 08/29/25 Status: Ordered Medication Dispense Status: Completed Quantity: 90.0 Unit: tab(s) Total Allowed Fills: 2 Fills Dispensed: 0 Start: 04-02-2023 End: 09-29-2023 allopurinol 100 mg oral tabl et Dose : 100 mg = 1 tab(s), Oral, qDayPC, # 90 tab(s), 1 Refill(s), Pharmacy: [facility]/pharmacy #[id number], 175, cm, 04/02/23 11:06:00 EDT, Height, kg, 04/02/23 11:06:00 EDT, Dosing Weight Start Date: 04/02/23 Stop Date: 09/29/23 Status: Ordered Start: 10-02-2022 End: 03-31-2023 allopurinol 100 mg oral tabl et Dose : 100 mg = 1 tab(s), Oral, qDayPC, # 90 tab(s), 1 Refill(s), Pharmacy: [facility]/pharmacy #[id number], 175.3, cm, 10/02/22 11:29:00 EST, Height, kg, 10/02/22 11:29:00 EST, Dosing Weight Start Date: 10/02/22 Stop Date: 03/31/23 Status: Ordered Start: 06-07-2021 End: 09-30-2022 allopurinol 100 mg oral tabl et Dose : 100 mg = 1 tab(s), Oral, qDayPC, # 90 tab(s), 1 Refill(s), Pharmacy: [facility]/pharmacy #[id number], 175.3, cm, 04/03/22 10:32:00 EDT, Height, kg, 04/03/22 10:32:00 EDT, Dosing Weight Start Date: 04/03/22 Stop Date: 09/30/22 Status: Ordered Start: 11-21-2020 End: 05-20-2021 allopurinol 100 mg oral tabl et Dose : 100 mg = 1 tab(s), Oral, qDayPC, # 90 tab(s), 1 Refill(s), Pharmacy: [facility]/pharmacy #[id number], 175, cm, 11/21/20 10:53:00 EDT, Height, kg, 11/21/20 10:53:00 EDT, Dosing Weight Start Date: 11/21/20 Stop Date: 05/20/21 Status: Ordered amLODIPine 10 mg oral tablet (20 sources) Dihydropyridine Calcium Channel Nelson Start: 10-01-2023 End: 08-29-2025 amLODIPine 10 mg oral tablet Dose : 10 mg = 1 tab(s), Oral, qDay, # 90 tab(s), 1 Refill(s), Pharmacy: [facility]/pharmacy #[id number], 174.5, cm, 03/02/25 8:56:00 EDT, Height, kg, 03/02/25 8:56:00 EDT, Dosing Weight Start Date: 03/02/25 Stop Date: 08/29/25 Status: Ordered Medication Dispense Status: Completed Quantity: 90.0 Unit: tab(s) Total Allowed Fills: 2 Fills Dispensed: 0 Start: 04-02-2023 End: 09-29-2023 amLODIPine 10 mg oral tablet Dose : 10 mg = 1 tab(s), Oral, qDay, # 90 tab(s), 1 Refill(s), [id number], 175, cm, 04/02/23 11:06:00 EDT, Height, kg, 04/02/23 11:06:00 EDT, Dosing Weight Start Date: 04/02/23 Stop Date: 09/29/23 Status: Ordered Start: 10-02-2022 End: 03-31-2023 amLODIPine 10 mg oral tablet Dose : 10 mg = 1 tab(s), Oral, qDay, # 90 tab(s), 1 Refill(s), [id number], 175.3, cm, 10/02/22 11:29:00 EST, Height, kg, 10/02/22 11:29:00 EST, Dosing Weight Start Date: 10/02/22 Stop Date: 03/31/23 Status: Ordered Start: 07-10-2021 End: 09-30-2022 amLODIPine 10 mg oral tablet Dose : 10 mg = 1 tab(s), Oral, qDay, # 90 tab(s), 1 Refill(s), Pharmacy: [facility]/pharmacy #[id number], 175.3, cm, 04/03/22 10:32:00 EDT, Height, [...] symptoms, # 30 mL, 5 Refill(s), Pharmacy: [facility]/pharmacy #[id number], 174.5, cm, 03/02/25 8:56:00 EDT, Height, [...] symptoms, # 1 EA, 1 Refill(s), [id number], 175, cm, 04/02/23 11:06:00 EDT, Height, kg, 04/02/23 11:06:00 EDT, Dosing Weight Start Date: 04/02/23 Status: Ordered Start: 10-02-2022 azelastine 137 mcg/inh (0.1%) nasal spray Dose = 2 spray(s), Intranasal, BID, PRN Allergy symptoms, # 1 EA, 1 Refill(s), Pharmacy: [facility]/pharmacy #[id number], 175.3, cm, 10/02/22 11:29:00 EST, Height, kg, 10/02/22 11:29:00 EST, Dosing Weight Start Date: 10/02/22 Status: Ordered Start: 11-21-2020 azelastine 137 mcg/inh (0.1%) nasal spray Dose = 2 spray(s), Intranasal, BID, PRN Allergy symptoms, # 1 EA, 1 Refill(s), Pharmacy: [facility]/pharmacy #[id number], 175, cm, 11/21/20 10:53:00 EDT, Height, kg, 11/21/20 10:53:00 EDT, Dosing Weight Start Date: 11/21/20 Status: Ordered azelastine 137 mcg/inh (0.1% ) nasal spray (6 sources) Start: 11-21-2020 azelastine 137 mcg/inh (0.1%) nasal spray Dose = 2 spray(s), Intranasal, BID, PRN Allergy symptoms, # 1 EA, 1 Refill(s), Pharmacy: [facility]/pharmacy #[id number], 175, cm, 11/21/20 10:53:00 EDT, Height, kg, 11/21/20 10:53:00 EDT, Dosing Weight Start Date: 11/21/20 Status: Ordered Start: 11-21-2020 azelastine 137 mcg/inh (0.1%) nasal spray Dose = 2 spray(s), Intranasal, BID, # 3 EA, 1 Refill(s), Pharmacy: [facility]/pharmacy #[id number], 175, cm, 11/21/20 10:53:00 EDT, Height, [...] use, # 3 EA, 1 Refill(s), Pharmacy: [facility]/pharmacy #[id number], 174.5, cm, 03/02/25 8:56:00 EDT, Height, [...] use, # 3 EA, 1 Refill(s), Pharmacy: [facility]/pharmacy #[id number], 174.5, cm, 01/06/25 13:34:00 EDT, Height, [...] BIDM, # 360 tab(s), 1 Refill(s), Pharmacy: [facility]/pharmacy #[id number], 174.5, cm, 03/02/25 8:56:00 EDT, Height, kg, 03/02/25 8:56:00 EDT, Dosing Weight Start Date: 03/02/25 Stop Date: 08/29/25 Status: Ordered Medication Dispense Status: Completed Quantity: 360.0 Unit: tab(s) Total Allowed Fills: 2 Fills Dispensed: 0 Start: 05-26-2020 calcium (as ca rbonate) 600 mg oral tablet Dose : 600 mg = 1 tab(s), Oral, BIDM, # 60 tab(s), 0 Refill(s), Pharmacy: [facility]/pharmacy #[id number], 175, cm, 10/01/23 10:22:00 EST, Height, [...] 0 Refill(s), 02/17/24 4:44:00 PM EDT, Pharmacy: [facility]/pharmacy #[id number], 175.3, cm, 02/11/24 15:05:00 EDT, Height, [...] later, # 14 tab(s), 1 Refill(s), Pharmacy: [facility]/pharmacy #[id number], 174, cm, 10/20/24 10:06:00 EDT, Height, [...] later, # 14 tab(s), 1 Refill(s), Pharmacy: [facility]/pharmacy #[id number], 175, cm, 04/28/24 9:03:00 EDT, Height, [...] later, # 14 tab(s), 1 Refill(s), Pharmacy: [facility]/pharmacy #[id number], 175.3, cm, 12/25/23 10:33:00 EDT, Height, [...] later, # 14 tab(s), 1 Refill(s), Pharmacy: [facility]/pharmacy #[id number], 175.3, cm, 09/05/21 10:05:00 EST, Height, [...] later, # 14 tab(s), 0 Refill(s), Pharmacy: [facility]/pharmacy #[id number], 175, cm, 03/22/21 16:01:00 EDT, Height, [...] qDay, # 30 tab(s), 1 Refill(s), [id number], 175, cm, 04/20/25 11:03:00 EDT, Height, [...] qDay, # 16 gram(s), 5 Refill(s), Pharmacy: [facility]/pharmacy #[id number], 174.5, cm, 03/02/25 8:56:00 EDT, Height, [...] qAM, # 1 EA, 5 Refill(s), [id number], 175, cm, 04/02/23 11:06:00 EDT, Height, kg, 04/02/23 11:06:00 EDT, Dosing Weight Start Date: 04/02/23 Stop Date: 09/29/23 Status: Ordered Start: 10-02-2022 End: 03-31-2023 take 1 dose nasal route once daily in the morning Flonase 50 mcg/inh nasal spray Dose = 1 spray(s), Nostril, each, qAM, # 1 EA, 5 Refill(s), [id number], 175.3, cm, 10/02/22 11:29:00 EST, Height, kg, 10/02/22 11:29:00 EST, Dosing Weight Start Date: 10/02/22 Stop Date: 03/31/23 Status: Ordered Start: 11-21-2020 take 1 dose nasal ro yurok twice daily as needed fluticasone proprionate NASAL 50 mcg/ spray Dose = 1 spray(s), Nostril, each, BID, PRN Allergy symptoms, # 1 EA, 1 Refill(s), Pharmacy: [facility]/pharmacy #[id number], 175, cm, 11/21/20 10:53:00 EDT, Height, kg, 11/21/20 10:53:00 EDT, Dosing Weight Start Date: 11/21/20 Status: Ordered fluticasone proprionate NASAL 50 mcg/ spray (6 sources) Start: 11-21-2020 take 1 dose nasal route twice daily as needed fluticasone proprionate NASAL 50 mcg/ spray Dose = 1 spray(s), Nostril, each, BID, PRN Allergy symptoms, # 1 EA, 1 Refill(s), [id number], 175, cm, 11/21/20 10:53:00 EDT, Height, kg, 11/21/20 10:53:00 EDT, Dosing Weight Start Date: 11/21/20 Status: Ordered Start: 11-21-2020 End: 05-20-2021 take 1 dose nasal route twice daily fluticasone proprionate NASAL 50 mcg/ spray Dose = 1 spray(s), Nostril, each, BID, # 3 EA, 1 Refill(s), Pharmacy: [facility]/pharmacy #[id number], 175, cm, 11/21/20 10:53:00 EDT, Height, [...] symptoms, # 1 EA, 1 Refill(s), Pharmacy: [facility]/pharmacy #[id number], 175, cm, 11/21/20 10:53:00 EDT, Height, kg, 11/21/20 10:53:00 EDT, Dosing Weight Start Date: 11/21/20 Status: Ordered ipratropium 21 mcg/inh (0.03%) nasal spray (6 sources) Start: 11-21-2020 ipratropium 21 mcg/inh (0.03%) nasal spray Dose = 2 spray(s), Nasal, qHS, PRN Allergy symptoms, # 1 EA, 1 Refill(s), [id number], 175, cm, 11/21/20 10:53:00 EDT, Height, kg, 11/21/20 10:53:00 EDT, Dosing Weight Start Date: 11/21/20 Status: Ordered Start: 11-21-2020 End: 05-20-2021 ipratropium 21 mcg/inh (0.03 %) nasal spray Dose = 2 spray(s), Nasal, qHS, # 3 EA, 1 Refill(s), [id number], 175, cm, 11/21/20 10:53:00 EDT, Height, kg, 11/21/20 10:53:00 EDT, Dosing Weight Start Date: 11/21/20 Stop Date: 05/20/21 Status: Ordered levothyroxine sodium 0.1 mg oral tablet (20 sources) l-Thyroxine Start: 10-01-2023 End: 08-29-2025 levothyroxine 100 mcg (0.1 mg) oral tablet Dose : 100 mcg = 1 tab(s), Oral, qDay, # 90 tab(s), 1 Refill(s), [id number], 174.5, cm, 03/02/25 8:56:00 EDT, Height, kg, 03/02/25 8:56:00 EDT, Dosing Weight Start Date: 03/02/25 Stop Date: 08/29/25 Status: Ordered Medication Dispense Status: Completed Quantity: 90.0 Unit: tab(s) Total Allowed Fills: 2 Fills Dispensed: 0 Start: 04-02-2023 End: 09-29-2023 levothyroxine 100 mcg (0.1 m g) oral tablet Dose : 100 mcg = 1 tab(s), Oral, qDay, # 90 tab(s), 1 Refill(s), Pharmacy: [facility] #[id number], 175, cm, 04/02/23 11:06:00 EDT, Height, kg, 04/02/23 11:06:00 EDT, Dosing Weight Start Date: 04/02/23 Stop Date: 09/29/23 Status: Ordered Start: 10-02-2022 End: 03-31-2023 levothyroxine 100 mcg (0.1 m g) oral tablet Dose : 100 mcg = 1 tab(s), Oral, qDay, # 90 tab(s), 1 Refill(s), Pharmacy: [facility]/pharmacy #[id number], 175.3, cm, 10/02/22 11:29:00 EST, Height, kg, 10/02/22 11:29:00 EST, Dosing Weight Start Date: 10/02/22 Stop Date: 03/31/23 Status: Ordered Start: 04-03-2022 End: 09-30-2022 levothyroxine 100 mcg (0.1 m g) oral tablet Dose : 100 mcg = 1 tab(s), Oral, qDay, # 90 tab(s), 1 Refill(s), Pharmacy: [facility]/pharmacy #[id number], 175.3, cm, 04/03/22 10:32:00 EDT, Height, kg, 04/03/22 10:32:00 EDT, Dosing Weight Start Date: 04/03/22 Stop Date: 09/30/22 Status: Ordered Start: 01-04-2022 levothyroxine 100 mcg (0.1 mg) oral tablet Dose : 100 mcg = 1 tab(s), Oral, qDay, # 60 tab(s), 4 Refill(s), Pharmacy: [facility]/pharmacy #[id number], 175.3, cm, 12/18/21 8:19:00 EDT, Height, kg, 12/18/21 8:19:00 EDT, Dosing Weight Start Date: 01/04/22 Status: Ordered Start: 11-09-2021 take 1 tablet by tatiana th once daily levothyroxine 100 mcg (0.1 mg) [...] Start: 01-29-2022 take 2 tablets by mo uth twice daily Citrucel 2 tab(s), Oral, BID Start Date: 01/29/22 Status: Ordered Repeat number: 1 Start: 01-29-2022 take 2 tablets by mo uth twice daily Citrucel 2 tab(s), Oral, BID [...] Start: 09-05-2021 take 1 tablet by tatiana th twice daily in the morning Ocuvite PreserVision Dose = 1 tab(s), Oral, BID, Takes at 9 AM and 12 PM Start Date: 09/05/21 Status: Ordered Repeat number: 1 Start: 09-05-2021 take 1 tablet by tatiana th twice daily in the morning Ocuvite PreserVision Dose = 1 tab(s), Oral, BID, Takes at 9 AM and 12 PM Start Date: 09/05/21 Status: Ordered Start: 09-05-2021 take 1 tablet by tatiana th twice daily Ocuvite PreserVision Dose = 1 tab(s), Oral, BID Start Date: 09/05/21 Status: Ordered omeprazole 40 mg delayed release oral capsule (20 sources) Proton Pump Inhibitor Start: 10-01-2023 End: 08-29-2025 omeprazole 40 mg oral delayed release capsule Dose : 40 mg = 1 cap(s), Oral, qDay, # 90 cap(s), 1 Refill(s), Pharmacy: [facility]/pharmacy #[id number], 174.5, cm, 03/02/25 8:56:00 EDT, Height, kg, 03/02/25 8:56:00 EDT, Dosing Weight Start Date: 03/02/25 Stop Date: 08/29/25 Status: Ordered Medication Dispense Status: Completed Quantity: 90.0 Unit: cap(s) Total Allowed Fills: 2 Fills Dispensed: 0 Start: 04-02-2023 End: 09-29-2023 omeprazole 40 mg oral delaye d release capsule Dose : 40 mg = 1 cap(s), Oral, qDay, # 90 cap(s), 1 Refill(s), Pharmacy: [facility]/pharmacy #[id number], 175, cm, 04/02/23 11:06:00 EDT, Height, kg, 04/02/23 11:06:00 EDT, Dosing Weight Start Date: 04/02/23 Stop Date: 09/29/23 Status: Ordered Start: 09-21-2021 End: 09-30-2022 omeprazole 40 mg oral delaye d release capsule Dose : 40 mg = 1 cap(s), Oral, qDay, # 90 cap(s), 1 Refill(s), Pharmacy: [facility]/pharmacy #[id number], 175.3, cm, 04/03/22 10:32:00 EDT, Height, kg, 04/03/22 10:32:00 EDT, Dosing Weight Start Date: 04/03/22 Stop Date: 09/30/22 Status: Ordered Start: 06-21-2021 End: 12-18-2021 omeprazole 20 mg oral delaye d release capsule Dose : 20 mg = 1 cap(s), Oral, qDay, switch back to 20 mg dose, # 90 cap(s), 1 Refill(s), Pharmacy: [facility]/pharmacy #[id number], 175, cm, 06/07/21 11:35:00 EDT, Height, kg, 06/07/21 11:35:00 EDT, Dosing Weight Start Date: 06/21/21 Stop Date: 12/18/21 Status: Ordered Start: 11-21-2020 End: 05-20-2021 omeprazole 20 mg oral delaye d release capsule Dose : 20 mg = 1 cap(s), Oral, Every other day, # 45 cap(s), 1 Refill(s), Pharmacy: [facility]/pharmacy #[id number], 175, cm, 11/21/20 10:53:00 EDT, Height, kg, 11/21/20 10:53:00 EDT, Dosing Weight Start Date: 11/21/20 Stop Date: 05/20/21 Status: Ordered polyethylene glycol 3350 [id number] mg powder for oral solution (20 sources) [...] qPM, # 100 tab(s), 1 Refill(s), Pharmacy: [facility]/pharmacy #[id number], 174.5, cm, 03/02/25 8:56:00 EDT, Height, kg, 03/02/25 8:56:00 EDT, Dosing Weight Start Date: 03/02/25 Stop Date: 09/18/25 Status: Ordered Medication Dispense Status: Completed Quantity: 100.0 Unit: tab(s) Total Allowed Fills: 2 Fills Dispensed: 0 Start: 04-02-2023 End: 09-29-2023 Crestor 10 mg oral tablet Do se : 10 mg = 1 tab(s), Oral, qPM, # 90 tab(s), 1 Refill(s), Pharmacy: [facility]/pharmacy #[id number], 175, cm, 04/02/23 11:06:00 EDT, Height, kg, 04/02/23 11:06:00 EDT, Dosing Weight Start Date: 04/02/23 Stop Date: 09/29/23 Status: Ordered Start: 10-02-2022 End: 03-31-2023 Crestor 10 mg oral tablet Do se : 10 mg = 1 tab(s), Oral, qPM, # 90 tab(s), 1 Refill(s), Pharmacy: [facility]/pharmacy #[id number], 175.3, cm, 10/02/22 11:29:00 EST, Height, kg, 10/02/22 11:29:00 EST, Dosing Weight Start Date: 10/02/22 Stop Date: 03/31/23 Status: Ordered Start: 06-07-2021 End: 09-30-2022 Crestor 10 mg oral tablet Do se : 10 mg = 1 tab(s), Oral, qPM, # 90 tab(s), 1 Refill(s), Pharmacy: [facility]/pharmacy #[id number], 175.3, cm, 04/03/22 10:32:00 EDT, Height Start Date: 04/03/22 Stop Date: 09/30/22 Status: Ordered Start: 11-21-2020 End: 05-20-2021 Crestor 10 mg oral tablet Do se : 10 mg = 1 tab(s), Oral, qDay, # 90 tab(s), 1 Refill(s), Pharmacy: [facility]/pharmacy #[id number], 175, cm, 11/21/20 10:53:00 EDT, Height, kg, 11/21/20 10:53:00 EDT, Dosing Weight Start Date: 11/21/20 Stop Date: 05/20/21 Status: Ordered Erin Jennifer Krill and F roseanne Oil Blend 500 mg oral capsule (20 sources) Start: 01-29-2022 Erin Fernandez ic Krill and Fish Oil Blend 500 mg oral capsule Dose : 1,000 mg = 2 cap(s), Oral, BID Start Date: 01/29/22 Status: Ordered Medication Dispense Status: Completed Total Allowed Fills: 1 Fills Dispensed: 0 Start: 01-29-2022 Erin Andrewst ic Krill and Fish Oil Blend 500 mg oral capsule Dose : 1,000 mg = 2 cap(s), Oral, BID Start Date: 01/29/22 Status: Ordered Repeat number: 1 Start: 01-29-2022 Erin Fernandez ic Krill and Fish Oil Blend 500 mg oral capsule Dose : 1,000 mg = 2 cap(s), Oral, BID Start Date: 01/29/22 Status: Ordered sennosides, half-way 8.6 mg oral tablet (20 sources) Start: 12-25-2023 End: 08-29-2025 senna (sennosides) 8.6 mg or al tablet Dose : 8.6 mg = 1 tab(s), Oral, qHS, PRN for constipation, # 60 tab(s), 5 Refill(s), Pharmacy: [facility]/pharmacy #[id number], 174.5, cm, 03/02/25 8:56:00 EDT, Height, [...] constipation, # 2 tab(s), 0 Refill(s), Pharmacy: [facility]/pharmacy #[id number], 175.3, cm, 10/02/22 11:29:00 EST, Height Start Date: 10/02/22 Stop Date: 10/04/22 Status: Ordered sertraline 100 mg oral tablet (20 sources) Serotonin Reuptake Inhibitor Start: 12-25-2023 End: 08-29-2025 Zoloft 100 mg oral tablet Dose : 50 mg = 0.5 tab(s), Oral, qPM, # 45 tab(s), 1 Refill(s), [id number] 174.5, cm, 03/02/25 8:56:00 EDT, Height, kg, 03/02/25 8:56:00 EDT, Dosing Weight Start Date: 03/02/25 Stop Date: 08/29/25 Status: Ordered Medication Dispense Status: Completed Quantity: 45.0 Unit: tab(s) Total Allowed Fills: 2 Fills Dispensed: 0 Start: 04-02-2023 End: 09-29-2023 Zoloft 100 mg oral tablet Do se : 50 mg = 0.5 tab(s), Oral, qPM, # 45 tab(s), 1 Refill(s), [id number], 175, cm, 04/02/23 11:06:00 EDT, Height, kg, 04/02/23 11:06:00 EDT, Dosing Weight Start Date: 04/02/23 Stop Date: 09/29/23 Status: Ordered Start: 10-02-2022 End: 03-31-2023 Zoloft 100 mg oral tablet Do se : 50 mg = 0.5 tab(s), Oral, qPM, # 45 tab(s), 1 Refill(s), [id number], 175.3, cm, 10/02/22 11:29:00 EST, Height, kg, 10/02/22 11:29:00 EST, Dosing Weight Start Date: 10/02/22 Stop Date: 03/31/23 Status: Ordered Start: 04-03-2022 End: 09-30-2022 Zoloft 100 mg oral tablet Do se : 50 mg = 0.5 tab(s), Oral, qPM, # 45 tab(s), 1 Refill(s), Pharmacy: [facility]/pharmacy #[id number], 175.3, cm, 04/03/22 10:32:00 EDT, Height Start Date: 04/03/22 Stop Date: 09/30/22 Status: Ordered Start: 01-29-2022 Zoloft 100 mg oral tablet Dose : 50 mg = 0.5 tab(s), Oral, qPM Start Date: 01/29/22 Status: Ordered Start: 12-12-2021 sertraline 100 mg oral tablet Dose : 50 mg = 0.5 tab(s), Oral, qDay, # 45 tab(s), 1 Refill(s), Pharmacy: [facility]/pharmacy #[id number], 175.3, cm, 12/12/21 9:58:00 EDT, Height, kg, 12/12/21 9:58:00 EDT, Dosing Weight Start Date: 12/12/21 Status: Ordered Start: 09-21-2021 sertraline 100 mg oral tablet Dose : 50 mg = 0.5 tab(s), Oral, qDay, # 45 tab(s), 1 Refill(s), Pharmacy: [facility]/pharmacy #[id number], 175.3, cm, 09/05/21 10:05:00 EST, Height, kg, 09/21/21 10:06:00 EST, Dosing Weight Start Date: 09/21/21 Status: Ordered Start: 06-26-2021 sertraline 100 mg oral tablet Dose : 50 mg = 0.5 tab(s), Oral, qDay, # 45 tab(s), 1 Refill(s), Pharmacy: [facility]/pharmacy #[id number], 175, cm, 06/07/21 11:35:00 EDT, Height, kg, 06/07/21 11:35:00 EDT, Dosing Weight Start Date: 06/26/21 Status: Ordered Start: 11-21-2020 End: 05-20-2021 sertraline 100 mg oral table t Dose : 50 mg = 0.5 tab(s), Oral, qDay, # 45 tab(s), 1 Refill(s), Pharmacy: [facility]/pharmacy #[id number], 175, cm, 11/21/20 10:53:00 EDT, Height, [...] DAYS, # 60 gram(s), 1 Refill(s), Pharmacy: [facility]/pharmacy #[id number], Cream, 174.5, cm, 03/02/25 8:56:00 EDT, Height, 81.6, kg, 03/02/25 8:56:00 EDT, Dosing Weight Start Date: 03/02/25 Status: Ordered Medication Dispense Status: Completed Quantity: 60.0 Unit: g Total Allowed Fills: 2 Fills Dispensed: 0 Start: 12-09-2024 triamcinolone 0.1% topical cream Apply 1 lorna, Topical, BID, APPLY TO AFFECTED AREA TWICE A DAY FOR 14 DAYS, # 60 gram(s), 1 Refill(s), Pharmacy: [facility]/pharmacy #[id number], Cream, 174, cm, 10/20/24 10:06:00 EDT, Height, 82.7, kg, 10/20/24 10:06:00 EDT, Dosing Weight Start Date: 12/09/24 Status: Ordered Quantity: 60.0 Unit: g Repeat number: 2 Start: 09-03-2023 End: 11-26-2023 triamcinolone 0.1% topical c ream Apply 1 lorna, Topical, BID, X 14 day(s), # 30 gram(s), 5 Refill(s), Pharmacy: [facility]/pharmacy #[id number], Cream, 175, cm, 05/06/23 13:16:00 EDT, [...] wheezing, # 3 EA, 1 Refill(s), Pharmacy: [facility]/pharmacy #[id number], 175.3, cm, 10/02/22 11:29:00 EST, Height, kg, 10/02/22 11:29:00 EST, Dosing Weight Start Date: 10/02/22 Stop Date: 03/31/23 Status: Ordered Start: 09-21-2021 End: 03-20-2022 take 2 puff(s) by inhalation four times daily as needed for wheezing Ventolin HFA MDI (90 mcg/inh) inhalation aerosol 2 puff(s), Inhalation, QID, PRN as needed for wheezing, # 3 EA, 1 Refill(s), Pharmacy: [facility]/pharmacy #[id number], 175.3, cm, 09/05/21 10:05:00 EST, Height, [...] wheezing, # 18 gram(s), 2 Refill(s), [id number], 174.5, cm, 01/06/25 13:34:00 EDT, Height, [...] wheezing, # 18 gram(s), 2 Refill(s), [id number], 174.5, cm, 01/06/25 13:34:00 EDT, Height, [...] qDay, # 1 EA, 2 Refill(s), [id number], 175, cm, 01/11/21 13:07:00 EDT, Height, kg, 01/11/21 13:07:00 EDT, Dosing Weight Start Date: 01/11/21 Stop Date: 04/11/21 Status: Ordered Problems Active Problems Problem Classification Problem Date Documented Date Episodic/Chronic Abdominal hernia (20 sources) Umbilical hernia; Translations: [Hiatal hernia] 11-21-2020 Episodic Abdominal pain (1 source) Abdominal pain; Translations: [Unspecified abdominal pain] Onset: 2 Episodic Acute and unspecified renal failure (2 [...] the respiratory system] Onset: 2 Episodic Other lower respiratory disease (2 sources) Shortness of breath; Translations: [Shortness of breath] Onset: 5 Episodic Other nutritional; endocrine; and metabolic disorders [...] apnea syndrome 03-25-2020 Chronic Residual codes; unclassified (2 sources) Obstructive sleep apnea (adult) (pediatric); Translations: [Obstructive [...] (20 sources) Subclinical hypothyroidism; Translations: [Hypothyroidism] Onset: 2 05-11-2021 Chronic Unclassified (20 sources) Patient encounter [...] Test Name Value Interpretation Reference Range Facility Cardiology Visit Reporton Cardiology Visit Report [facility] [address] [place] [address] OFFICE VISIT Date of Service: 06/17/25 MR#: [id number] Acct: [id number] Name: BLOSSOM BASS Rep #: [id number] : 1935 Provider: Dr. Sp frazier MD Age/Sex: 89/M Location[place] [facility] Status: Signed HPI HPI History of Present Illness Details: Patient is a very pleasant 89-year-old white male that comes in today for new patient visit for preop clearance. I talked to the patient and his and his daughter who lives in [place] was on the phone. The patient has an abdominal mass that is being evaluated for resection. He was tentatively scheduled for June 29, 2025 but that has been delayed. The patient had a Holter monitor done May 18 where he had 2 episodes of paroxysmal supraventricular tachycardia the longest was 52 beats at 108 bpm. He had frequent PVCs 19% of his beats were PVCs. He is now referred for preop clearance. The patient had a Lexiscan Cardiolite stress test which was negative for ischemia May 17, 2025. He had a remote echocardiogram which showed normal LV function with mild valvular heart disease and a right ventricular systolic pressure estimated at 39 mmHg. Patient does have some pulmonary insufficiency which is treated by the pulmonary department in [facility] he also has obstructive sleep apnea and his sleep machine is being titrated. The Holter monitor was done prior to his titration of his sleep machine. The patient also has a history of hypertension which is well-controlled in the office today he has a history of chronic kidney disease and primary hyperparathyroidism he does not know his GFR or his creatinine and I do not have access to his blood work today. Patient also has a history of hypothyroidism and hyperlipidemia last lipids from April 2025 were well-controlled. He is on rosuvastatin. The patient does have a family history of coronary disease he has a history of hypertension which is well treated hyperlipidemia which is well-controlled he is not a smoker and is not diabetic. However his hemoglobin A1c was documented at 6.3. The patient denies any syncope or near syncope denies any palpitations. He does have some occasional lightheaded spells with change of position and he does have some dyspnea on exertion. He denies any chest pains with activity he noticed a couple of episodes over the last year where he was in the recumbent position and felt something in his right upper chest he took a aspirin and it resolved. It has not recurred and does not occur with activity. He had a negative pharmacologic stress test May 17, 2025. Patient is ECG done April 20, 2025 showed normal sinus rhythm with a first-degree AV block and frequent PVCs and occasional PACs. There was no evidence of any ischemic changes. There was a leftward axis. The patient's surgery is far a biopsy benign mass that is now started to grow in his abdomen. This is to be performed as an open procedure by his report. Intake Vital Signs 05/13/24 07:49 06/08/25 11:27 06/17/25 09:31 Height 5 ft 9 in 5 ft 9 in 5 ft 9 in Weight: 180 lb 179 lb BMI 26.6 26.4 BP 102/62 126/68 H Blood Pressure Location Lt brachial Lt brachial Position Sitting Sitting Respiration 18 18 Pulse 71 74 Pulse Source Monitor Monitor Temp 96.4 F L Temperature Source Temporal Artery Pulse Oximetry (%) 94 92 Oxygen Delivery Method room air room air Intake Visit Reasons: TO EP FOR SIGNIFICANT SVT (HALKO) [employer] Carpenter Required: No Accompanied by: and daughter on phone Is patient in pain?: No Allergies Penicillins Adverse Reaction (Verified 06/17/25 09:32) Hives Medications ???Medication ???Instructions ???Recorded ???Confirmed ???Type ascorbic acid (vitamin C) 1,000 mg 1,000 mg PO DAILY SUPPLEMENT 06/17/25 History tablet aspirin 81 mg tablet,delayed 81 mg PO PolyActiva 0 06/17/25 History release meclizine 12.5 mg tablet 12.5 mg PO Q6H PRN PRN Vertigo 06/17/25 History omega-3 fatty acids-fish oil 340 1 cap PO DAILY SUPPLEMENT 09/03/19 06/17/25 History mg-1,000 mg capsule rosuvastatin 10 mg tablet 10 mg PO DAILY 09/03/19 06/17/25 H istory sertraline 100 mg tablet 50 mg PO QHS MOOD STABILIZER 09/0306/17/25 History vitamins A,C,J-hiyz-ruxzlb 4,296 1 dose PO BID SUPPLEMENT 09/03/19 06/17/25 History mcg-226 mg-90 mg capsule fluticasone propionate 50 2 spray intranasal QDAY #1 device 09/05/20 06/17/25 Rx mcg/actuation nasal spray,suspension (Flonase Allergy Relief) allopurinol 100 mg tablet 100 mg PO DAILY 11/16/20 06/17/25 History Super Enzymes 1 cap PO BID 12/11/21 06/17/25 His tory alfuzosin 10 mg tablet,extended 10 mg PO DAILY 12/11/21 06/17/25 H i (more content not included)... Normal [facility] Pulmonary Visit Reporton Pulmonary Visit Report [facility] [address] [place] [address] OFFICE VISIT Date of Service: 06/08/25 MR#: [id number] Acct: [id number] Name: BLOSSOM BASS Rep #: [id number] : 1935 Provider: OZIEL Pedroza Age/Sex: 89/M Location: [facility] Status: Signed Assessment and Plan Assessment and [...] will share this office visit with the archery equipment hay sorter to let them know that the patient is not optimized from a sleep apnea standpoint and that we are working on this. It is imperative that we make sure that the patient is optimized with treating his sleep apnea so that the archery equipment hay sorter can optimize the patient either through medical management or intervention if indicated. Orders: Orders Polysomnography with PAP Today G47.33 - Obstructive sleep apnea (adult) (pediatric) Plan Details Additional Comments: This note was generated with [employer] dictation software. It may contain incorrect words, [...] on hold until they get that figured out". He is compliant with the use of [...] in We (more content not included)... Normal [facility] MYOCARDIAL SPECT STRESS/R ESTon 05-17-2025 [place] MYOCARDIAL SPECT STRESS/REST ORIGINAL [place] MYOCARDIAL SPECT STRESS/REST CLINICAL STATEMENT: chest pain [...] 05/17/2025 6:32:23 PM Ordering Provider:Sp Pope Normal [facility] .Auto Diffon 04-19-2025 Basophil, Absolute 0.0 10 3/mcL Normal 0.0-0.3 [facility] Comment on above: Performed By: #### A DIFF, CMP, URIC, ANEU, CBC, TSH, VIDH, LIPID, CAION, A1C, FERR, GFR, FT4 #### [address] [address] #### PTH #### [address] [address] Basophils/100 WBC (Bld) 0.1 % Normal 0.0-2.5 [facility] Comment on above: Performed By: #### A DIFF, CMP, URIC, ANEU, CBC, TSH, VIDH, LIPID, CAION, A1C, FERR, GFR, FT4 #### [address] [address] #### PTH #### [address] [address] Eosinophil, Absolute 0.1 10 3/mcL Normal 0.0-0.7 [facility] Comment on above: Performed By: #### A DIFF, CMP, URIC, ANEU, CBC, TSH, VIDH, LIPID, CAION, A1C, FERR, GFR, FT4 #### [address] [address] #### PTH #### [address] [address] Eosinophils/100 WBC (Bld) 3.4 % Normal 0.0-6.0 [facility] Comment on above: Performed By: #### A DIFF, CMP, URIC, ANEU, CBC, TSH, VIDH, LIPID, CAION, A1C, FERR, GFR, FT4 #### [address] [address] #### PTH #### [address] [address] Lymphocyte, Absolute 1.2 10 3/mcL Normal 0.9-4.3 [facility] Comment on above: Performed By: #### A DIFF, CMP, URIC, ANEU, CBC, TSH, VIDH, LIPID, CAION, A1C, FERR, GFR, FT4 #### [address] [address] #### PTH #### [address] [address] Lymphocytes/100 WBC (Bld) 22.5 % Normal 20.0-40.0 [facility] Comment on above: Performed By: #### A DIFF, CMP, URIC, ANEU, CBC, TSH, VIDH, LIPID, CAION, A1C, FERR, GFR, FT4 #### [address] [address] #### PTH #### [address] [address] Monocyte, Absolute 0.3 10 3/mcL Normal 0.1-1.4 [facility] Comment on above: Performed By: #### A DIFF, CMP, URIC, ANEU, CBC, TSH, VIDH, LIPID, CAION, A1C, FERR, GFR, FT4 #### [address] [address] #### PTH #### [address] [address] Monocytes/100 WBC (Bld) 6.1 % Normal 2.0-13.0 [facility] Comment on above: Performed By: #### A DIFF, CMP, URIC, ANEU, CBC, TSH, VIDH, LIPID, CAION, A1C, FERR, GFR, FT4 #### [address] [address] #### PTH #### [address] [address] Neutrophils/100 WBC (Bld) 67.7 % Normal 50.0-75.0 [facility] Comment on above: Performed By: #### A DIFF, CMP, URIC, ANEU, CBC, TSH, VIDH, LIPID, CAION, A1C, FERR, GFR, FT4 #### [address] [address] #### PTH #### [address] [address] .GFRon 04-19-2025 Estimated Glomerular Filtration Rate 58 ml/min/1.73sqm Normal [facility] Comment on above: Result Comment: Stages of [...] the eGFR results. Performed By: #### U A, UAMICAO #### [address] [address] .NEUABSon 04-19-2025 Neutrophil, Absolute 3.7 10 3/mcL Normal 2.3-8.1 [facility] Comment on above: Performed By: #### A DIFF, CMP, URIC, ANEU, CBC, TSH, VIDH, LIPID, CAION, A1C, FERR, GFR, FT4 #### [address] [address] #### PTH #### [address] [address] A1Con 04-19-2025 Glucose [Mass/Vol] 134 mg/dL Normal [facility] Comment on above: Result Comment: Cony mated Average Glucose calculated by equation ((28.7xA1C)-46.7) Estimated average glucose (eAG) is a calculated value from Hemoglobin A1C and is small business representative of the average blood glucose level in the last 2-3 month period. Normal range: less than 114 mg/dL Performed By: #### A DIFF, CMP, URIC, ANEU, CBC, TSH, VIDH, LIPID, CAION, A1C, FERR, GFR, FT4 #### [address] [address] #### PTH #### [place] [address] HbA1c (Bld) [Mass fraction] 6.3 % Normal 4.3-6.4 [facility] Comment on above: Performed By: #### A DIFF, CMP, URIC, ANEU, CBC, TSH, VIDH, LIPID, CAION, A1C, FERR, GFR, FT4 #### [place] [address] #### PTH #### [place] [address] CAIONon 04-19-2025 Calcium Ionized 1.14 mmol/L Normal 1.12-1.32 [facility] Comment on above: Performed By: #### A DIFF, CMP, URIC, ANEU, CBC, TSH, VIDH, LIPID, CAION, A1C, FERR, GFR, FT4 #### [address] [address] #### PTH #### [place] [address] CBCon 04-19-2025 Erythrocyte distribution width (RBC) [Ratio] 13.8 % Normal 11.5-15.5 [facility] Comment on above: Performed By: #### A DIFF, CMP, URIC, ANEU, CBC, TSH, VIDH, LIPID, CAION, A1C, FERR, GFR, FT4 #### [place] [address] #### PTH #### [place] [address] Hematocrit (Bld) [Volume fraction] 34.8 % Low 40.0-52.0 [facility] Comment on above: Performed By: #### A DIFF, CMP, URIC, ANEU, CBC, TSH, VIDH, LIPID, CAION, A1C, FERR, GFR, FT4 #### [address] [address] #### PTH #### [place] [address] Hgb 11.6 G/dL Low 13.0-17.5 [facility] Comment on above: Performed By: #### A DIFF, CMP, URIC, ANEU, CBC, TSH, VIDH, LIPID, CAION, A1C, FERR, GFR, FT4 #### [place] [address] #### PTH #### [place] [address] MCH (RBC) [Entitic mass] 28.8 pg Normal 27.0-33.0 [facility] Comment on above: Performed By: #### A DIFF, CMP, URIC, ANEU, CBC, TSH, VIDH, LIPID, CAION, A1C, FERR, GFR, FT4 #### [place] [address] #### PTH #### [place] [address] MCHC 33.5 G/dL Normal 32.0-36.0 [facility] Comment on above: Performed By: #### A DIFF, CMP, URIC, ANEU, CBC, TSH, VIDH, LIPID, CAION, A1C, FERR, GFR, FT4 #### [place] [address] #### PTH #### [place] [address] MCV (RBC) [Entitic vol] 86.0 fL Normal 81.0-100.0 [facility] Comment on above: Performed By: #### A DIFF, CMP, URIC, ANEU, CBC, TSH, VIDH, LIPID, CAION, A1C, FERR, GFR, FT4 #### [place] [address] #### PTH #### [place] [address] Platelet 214 10 3/mcL Normal 150-450 [facility] Comment on above: Performed By: #### A DIFF, CMP, URIC, ANEU, CBC, TSH, VIDH, LIPID, CAION, A1C, FERR, GFR, FT4 #### [address] [address] #### PTH #### [place] [address] Platelet mean volume (Bld) [Entitic vol] 8.2 fL Normal 6.4-10.5 [facility] Comment on above: Performed By: #### A DIFF, CMP, URIC, ANEU, CBC, TSH, VIDH, LIPID, CAION, A1C, FERR, GFR, FT4 #### [place] [address] #### PTH #### [place] [address] RBC 4.05 10 6/mcL Low 4.50-6.00 [facility] Comment on above: Performed By: #### A DIFF, CMP, URIC, ANEU, CBC, TSH, VIDH, LIPID, CAION, A1C, FERR, GFR, FT4 #### [place] [address] #### PTH #### [place] [address] WBC 5.5 10 3/mcL Normal 4.5-10.8 [facility] Comment on above: Performed By: #### A DIFF, CMP, URIC, ANEU, CBC, TSH, VIDH, LIPID, CAION, A1C, FERR, GFR, FT4 #### [place] [address] #### PTH #### [place] [address] CMPon 04-19-2025 Albumin Level 2.7 G/dL Low 3.4-4.8 [facility] Comment on above: Performed By: #### U James UAMICAO #### [address] [address] Albumin/Globulin [Mass ratio] 0.7 {ratio} Low 1.1-2.5 [facility] Comment on above: Performed By: #### U James UAMICAO #### [address] [address] ALP [Catalytic activity/Vol] 112 U/L Normal 40-135 [facility] Comment on above: Performed By: #### U James UAMICAO #### [address] [address] ALT [Catalytic activity/Vol] 16 U/L Normal 16-63 [facility] Comment on above: Performed By: #### U James UAMICAO #### [address] [address] AST [Catalytic activity/Vol] 15 U/L Normal 10-40 [facility] Comment on above: Performed By: #### Rosa Ramirez UAMICAO #### [address] [address] Bili Total 0.3 mg/dL Normal 0.2-1.0 [facility] Comment on above: Result Comment: Use of this assay is not recommended for patients undergoing treatment with eltrombopag due to the potential for falsely elevated results. Performed By: #### U James UAMICAO #### [address] [address] BUN/Creatinine Ratio 17 ratio Normal 7-27 [facility] Comment on above: Performed By: #### U James UAMICAO #### [address] [address] Calcium [Mass/Vol] 8.2 mg/dL Low 8.4-10.2 [facility] Comment on above: Performed By: #### U James UAMICAO #### [address] [address] Chloride [Moles/Vol] 105 mmol/L Normal 98-107 [facility] Comment on above: Performed By: #### U A, UAMICAO #### [address] [address] CO2 [Moles/Vol] 30 mmol/L Normal 23-31 [facility] Comment on above: Performed By: #### U A, UAMICAO #### [address] [address] Creatinine [Mass/Vol] 1.20 mg/dL High 0.67-1.17 [facility] Comment on above: Performed By: #### U A, UAMICAO #### [address] [address] Electrolyte Balance 5.0 mEq/L Normal 4.0-15.0 [facility] Comment on above: Performed By: #### U A, UAMICAO #### [address] [address] Globulin 3.9 G/dL Normal 2.7-4.4 [facility] Comment on above: Performed By: #### U James, UAMICAO #### [address] [address] Glucose [Mass/Vol] 111 mg/dL High 83-110 [facility] Comment on above: Performed By: #### U James, UAMICAO #### [address] [address] Potassium [Moles/Vol] 4.4 mmol/L Normal 3.5-5.1 [facility] Comment on above: Performed By: #### U A, UAMICAO #### [address] [address] Sodium [Moles/Vol] 140 mmol/L Normal 136-145 [facility] Comment on above: Performed By: #### U A, UAMICAO #### [address] [address] Total Protein 6.6 G/dL Normal 6.4-8.2 [facility] Comment on above: Performed By: #### U A, UAMICAO #### [address] [address] Urea nitrogen [Mass/Vol] 20 mg/dL High 7-18 [facility] Comment on above: Performed By: #### U A, UAMICAO #### [address] [address] Minal 04-19-2025 Ferritin [Mass/Vol] 38.0 ng/mL Normal 26.0-388.0 [facility] Comment on above: Performed By: #### A DIFF, CMP, URIC, ANEU, CBC, TSH, VIDH, LIPID, CAION, A1C, FERR, GFR, FT4 #### [address] [address] #### PTH #### [facility] [address] [place] [address] FT4on 04-19-2025 Free T4 [Mass/Vol] 1.08 ng/dL Normal 0.76-1.46 [facility] Comment on above: Performed By: #### A DIFF, CMP, URIC, ANEU, CBC, TSH, VIDH, LIPID, CAION, A1C, FERR, GFR, FT4 #### [address] [address] #### PTH #### [facility] [address] [place] [address] LABORATORYOrdered By: SYSTEM SYSTEM on 04-19-2025 25-hydroxyvitamin [...] calculated value from Hemoglobin A1C and is small business representative of the average blood glucose level [...] 04-19-2025 Cholesterol [Mass/Vol] 84 mg/dL Normal 0-200 [facility] Comment on above: Result Comment: Chol esterol Reference Interval: Less than 200 Desirable 200-239 Borderline high risk 240 and above High risk Performed By: #### U James UAMICAO #### [address] [address] Cholesterol in HDL [Mass/Vol] 39 mg/dL Low 40-60 [facility] Comment on above: Performed By: #### U James UAMICAO #### [address] [address] Cholesterol in LDL [Mass/Vol] 36 mg/dL Normal 0-130 [facility] Comment on above: Performed By: #### U James UAJOSHUA #### [address] [address] Triglyceride [Mass/Vol] 47 mg/dL Normal 0-150 [facility] Comment on above: Result Comment: Trig lyceride Reference Interval: Less than 150 Normal 150-199 Borderline high risk 200-499 High risk 500 or higher Very high risk Performed By: #### U James UAMICAO #### [address] [address] PTHon 04-19-2025 PTH, Intact 96.0 pg/mL High 18.5-88.0 [facility] Comment on above: Performed By: #### U James UAMICAO #### [address] [address] TSHon 04-19-2025 TSH Qn 0.68 m[IU]/L Normal 0.36-3.74 [facility] Comment on above: Performed By: #### A DIFF, CMP, URIC, ANEU, CBC, TSH, VIDH, LIPID, CAION, A1C, FERR, GFR, FT4 #### [address] [address] #### PTH #### [address] [address] URICon 04-19-2025 Uric Acid Lvl 5.5 mg/dL Normal 3.5-7.2 [facility] Comment on above: Performed By: #### U A UAMICAO #### [address] [address] VIDHon 04-19-2025 Vit. D 25-Hydroxy 51.1 ng/mL Normal [facility] Comment on above: Result Comment: Inte rpretive Values Based on Total 25(OH) Vitamin D: Deficient <20 ng/mL Insufficient 20 - <30 ng/mL Sufficient 30-100 ng/mL Performed By: #### U A UAMICAO #### [address] [address] .Auto Diffon 02-19-2025 Basophil, Absolute 0.0 10 3/mcL Normal 0.0-0.3 [facility] Comment on above: Performed By: #### A DIFF, CMP, URIC, ANEU, CBC, TSH, VIDH, LIPID, CAION, A1C, FERR, GFR, FT4 #### [place] [address] #### PTH #### [address] [address] Basophils/100 WBC (Bld) 0.6 % Normal 0.0-2.5 [facility] Comment on above: Performed By: #### A DIFF, CMP, URIC, ANEU, CBC, TSH, VIDH, LIPID, CAION, A1C, FERR, GFR, FT4 #### [address] [address] #### PTH #### [address] [address] Eosinophil, Absolute 0.2 10 3/mcL Normal 0.0-0.7 [facility] Comment on above: Performed By: #### A DIFF, CMP, URIC, ANEU, CBC, TSH, VIDH, LIPID, CAION, A1C, FERR, GFR, FT4 #### [address] [address] #### PTH #### [address] [address] Eosinophils/100 WBC (Bld) 3.1 % Normal 0.0-6.0 [facility] Comment on above: Performed By: #### A DIFF, CMP, URIC, ANEU, CBC, TSH, VIDH, LIPID, CAION, A1C, FERR, GFR, FT4 #### [address] [address] #### PTH #### [address] [address] Lymphocyte, Absolute 1.3 10 3/mcL Normal 0.9-4.3 [facility] Comment on above: Performed By: #### A DIFF, CMP, URIC, ANEU, CBC, TSH, VIDH, LIPID, CAION, A1C, FERR, GFR, FT4 #### [address] [address] #### PTH #### [address] [address] Lymphocytes/100 WBC (Bld) 23.6 % Normal 20.0-40.0 [facility] Comment on above: Performed By: #### A DIFF, CMP, URIC, ANEU, CBC, TSH, VIDH, LIPID, CAION, A1C, FERR, GFR, FT4 #### [address] [address] #### PTH #### [address] [address] Monocyte, Absolute 0.4 10 3/mcL Normal 0.1-1.4 [facility] Comment on above: Performed By: #### A DIFF, CMP, URIC, ANEU, CBC, TSH, VIDH, LIPID, CAION, A1C, FERR, GFR, FT4 #### [address] [address] #### PTH #### [address] [address] Monocytes/100 WBC (Bld) 7.0 % Normal 2.0-13.0 [facility] [place] Comment on above: Performed By: #### A DIFF, CMP, URIC, ANEU, CBC, TSH, VIDH, LIPID, CAION, A1C, FERR, GFR, FT4 #### [address] [address] #### PTH #### [address] [address] Neutrophils/100 WBC (Bld) 65.7 % Normal 50.0-75.0 [facility] [place] Comment on above: Performed By: #### A DIFF, CMP, URIC, ANEU, CBC, TSH, VIDH, LIPID, CAION, A1C, FERR, GFR, FT4 #### [address] [address] #### PTH #### [address] [address] .GFRon 02-19-2025 Estimated Glomerular Filtration Rate 47 ml/min/1.73sqm Normal [facility] [place] Comment on above: Result Comment: Stages of [...] LIPID, CAION, A1C, FERR, GFR, FT4 #### [address] [address] #### PTH #### [address] [address] .NEUABSon 02-19-2025 Neutrophil, Absolute 3.7 10 3/mcL Normal 2.3-8.1 [facility] Comment on above: Performed By: #### A DIFF, CMP, URIC, ANEU, CBC, TSH, VIDH, LIPID, CAION, A1C, FERR, GFR, FT4 #### [address] [address] #### PTH #### [address] [address] A1Con 02-19-2025 Glucose [Mass/Vol] 131 mg/dL Normal [facility] Comment on above: Result Comment: Cony mated Average Glucose calculated by equation ((28.7xA1C)-46.7) Estimated average glucose (eAG) is a calculated value from Hemoglobin A1C and is small business representative of the average blood glucose level in the last 2-3 month period. Normal range: less than 114 mg/dL Performed By: #### A DIFF, CMP, URIC, ANEU, CBC, TSH, VIDH, LIPID, CAION, A1C, FERR, GFR, FT4 #### [place] [address] #### PTH #### [place] [address] HbA1c (Bld) [Mass fraction] 6.2 % Normal 4.3-6.4 [facility] [place] Comment on above: Performed By: #### A DIFF, CMP, URIC, ANEU, CBC, TSH, VIDH, LIPID, CAION, A1C, FERR, GFR, FT4 #### [place] [address] #### PTH #### [place] [address] CBCon 02-19-2025 Erythrocyte distribution width (RBC) [Ratio] 14.7 % Normal 11.5-15.5 [facility] [place] Comment on above: Performed By: #### A DIFF, CMP, URIC, ANEU, CBC, TSH, VIDH, LIPID, CAION, A1C, FERR, GFR, FT4 #### [place] [address] #### PTH #### [place] [address] Hematocrit (Bld) [Volume fraction] 36.7 % Low 40.0-52.0 [facility] [place] Comment on above: Performed By: #### A DIFF, CMP, URIC, ANEU, CBC, TSH, VIDH, LIPID, CAION, A1C, FERR, GFR, FT4 #### [address] [address] #### PTH #### [place] [address] Hgb 12.2 G/dL Low 13.0-17.5 [facility] [place] Comment on above: Performed By: #### A DIFF, CMP, URIC, ANEU, CBC, TSH, VIDH, LIPID, CAION, A1C, FERR, GFR, FT4 #### [place] [address] #### PTH #### [place] [address] MCH (RBC) [Entitic mass] 29.4 pg Normal 27.0-33.0 [facility] [place] Comment on above: Performed By: #### A DIFF, CMP, URIC, ANEU, CBC, TSH, VIDH, LIPID, CAION, A1C, FERR, GFR, FT4 #### [place] [address] #### PTH #### [place] [address] MCHC 33.3 G/dL Normal 32.0-36.0 [facility] [place] Comment on above: Performed By: #### A DIFF, CMP, URIC, ANEU, CBC, TSH, VIDH, LIPID, CAION, A1C, FERR, GFR, FT4 #### [place] [address] #### PTH #### [place] [address] MCV (RBC) [Entitic vol] 88.2 fL Normal 81.0-100.0 [facility] [place] Comment on above: Performed By: #### A DIFF, CMP, URIC, ANEU, CBC, TSH, VIDH, LIPID, CAION, A1C, FERR, GFR, FT4 #### [address] [address] #### PTH #### [place] [address] Platelet 212 10 3/mcL Normal 150-450 [facility] [place] Comment on above: Performed By: #### A DIFF, CMP, URIC, ANEU, CBC, TSH, VIDH, LIPID, CAION, A1C, FERR, GFR, FT4 #### [address] [address] #### PTH #### [place] [address] Platelet mean volume (Bld) [Entitic vol] 8.7 fL Normal 6.4-10.5 [facility] [place] Comment on above: Performed By: #### A DIFF, CMP, URIC, ANEU, CBC, TSH, VIDH, LIPID, CAION, A1C, FERR, GFR, FT4 #### [place] [address] #### PTH #### [place] [address] RBC 4.16 10 6/mcL Low 4.50-6.00 [facility] [place] Comment on above: Performed By: #### A DIFF, CMP, URIC, ANEU, CBC, TSH, VIDH, LIPID, CAION, A1C, FERR, GFR, FT4 #### [place] [address] #### PTH #### [place] [address] WBC 5.6 10 3/mcL Normal 4.5-10.8 [facility] [place] Comment on above: Performed By: #### A DIFF, CMP, URIC, ANEU, CBC, TSH, VIDH, LIPID, CAION, A1C, FERR, GFR, FT4 #### [address] [address] #### PTH #### [place] [address] CMPon 02-19-2025 Albumin Level 2.9 G/dL Low 3.4-4.8 [facility] [place] Comment on above: Performed By: #### A DIFF, CMP, URIC, ANEU, CBC, TSH, VIDH, LIPID, CAION, A1C, FERR, GFR, FT4 #### [place] [id number] #### PTH #### [place] [address] Albumin/Globulin [Mass ratio] 0.8 {ratio} Low 1.1-2.5 [facility] [place] Comment on above: Performed By: #### A DIFF, CMP, URIC, ANEU, CBC, TSH, VIDH, LIPID, CAION, A1C, FERR, GFR, FT4 #### [address] [address] #### PTH #### [place] [address] ALP [Catalytic activity/Vol] 108 U/L Normal 40-135 [facility] [place] Comment on above: Performed By: #### A DIFF, CMP, URIC, ANEU, CBC, TSH, VIDH, LIPID, CAION, A1C, FERR, GFR, FT4 #### [place] [address] #### PTH #### [place] [address] ALT [Catalytic activity/Vol] 17 U/L Normal 16-63 [facility] [place] Comment on above: Performed By: #### A DIFF, CMP, URIC, ANEU, CBC, TSH, VIDH, LIPID, CAION, A1C, FERR, GFR, FT4 #### [address] [address] #### PTH #### [place] [address] AST [Catalytic activity/Vol] 20 U/L Normal 10-40 [facility] [place] Comment on above: Performed By: #### A DIFF, CMP, URIC, ANEU, CBC, TSH, VIDH, LIPID, CAION, A1C, FERR, GFR, FT4 #### [place] [address] #### PTH #### [place] [address] Bili Total 0.4 mg/dL Normal 0.2-1.0 [facility] [place] Comment on above: Result Comment: Use of this assay is not recommended for patients undergoing treatment with eltrombopag due to the potential for falsely elevated results. Performed By: #### A DIFF, CMP, URIC, ANEU, CBC, TSH, VIDH, LIPID, CAION, A1C, FERR, GFR, FT4 #### [address] [address] #### PTH #### [address] [address] BUN/Creatinine Ratio 17 ratio Normal 7-27 [facility] Comment on above: Performed By: #### A DIFF, CMP, URIC, ANEU, CBC, TSH, VIDH, LIPID, CAION, A1C, FERR, GFR, FT4 #### [address] [address] #### PTH #### [address] [address] Calcium [Mass/Vol] 8.5 mg/dL Normal 8.4-10.2 [facility] Comment on above: Performed By: #### A DIFF, CMP, URIC, ANEU, CBC, TSH, VIDH, LIPID, CAION, A1C, FERR, GFR, FT4 #### [place] [address] #### PTH #### [address] [address] Chloride [Moles/Vol] 106 mmol/L Normal 98-107 [facility] Comment on above: Performed By: #### A DIFF, CMP, URIC, ANEU, CBC, TSH, VIDH, LIPID, CAION, A1C, FERR, GFR, FT4 #### [address] [address] #### PTH #### [address] [address] CO2 [Moles/Vol] 30 mmol/L Normal 23-31 [facility] [place] Comment on above: Performed By: #### A DIFF, CMP, URIC, ANEU, CBC, TSH, VIDH, LIPID, CAION, A1C, FERR, GFR, FT4 #### [place] [address] #### PTH #### [address] [address] Creatinine [Mass/Vol] 1.43 mg/dL High 0.67-1.17 [facility] Comment on above: Performed By: #### A DIFF, CMP, URIC, ANEU, CBC, TSH, VIDH, LIPID, CAION, A1C, FERR, GFR, FT4 #### [address] [address] #### PTH #### [address] [address] Electrolyte Balance 5.0 mEq/L Normal 4.0-15.0 [facility] Comment on above: Performed By: #### A DIFF, CMP, URIC, ANEU, CBC, TSH, VIDH, LIPID, CAION, A1C, FERR, GFR, FT4 #### [address] [address] #### PTH #### [place] [address] Globulin 3.8 G/dL Normal 2.7-4.4 [facility] [place] Comment on above: Performed By: #### A DIFF, CMP, URIC, ANEU, CBC, TSH, VIDH, LIPID, CAION, A1C, FERR, GFR, FT4 #### [address] [address] #### PTH #### [address] [address] Glucose [Mass/Vol] 129 mg/dL High 83-110 [facility] Comment on above: Performed By: #### A DIFF, CMP, URIC, ANEU, CBC, TSH, VIDH, LIPID, CAION, A1C, FERR, GFR, FT4 #### [address] [address] #### PTH #### [address] [address] Potassium [Moles/Vol] 4.7 mmol/L Normal 3.5-5.1 [facility] Comment on above: Performed By: #### A DIFF, CMP, URIC, ANEU, CBC, TSH, VIDH, LIPID, CAION, A1C, FERR, GFR, FT4 #### [address] [address] #### PTH #### [address] [address] Sodium [Moles/Vol] 141 mmol/L Normal 136-145 [facility] Comment on above: Performed By: #### A DIFF, CMP, URIC, ANEU, CBC, TSH, VIDH, LIPID, CAION, A1C, FERR, GFR, FT4 #### [address] [address] #### PTH #### [address] [address] Total Protein 6.7 G/dL Normal 6.4-8.2 [facility] [place] Comment on above: Performed By: #### A DIFF, CMP, URIC, ANEU, CBC, TSH, VIDH, LIPID, CAION, A1C, FERR, GFR, FT4 #### [address] [address] #### PTH #### [address] [address] Urea nitrogen [Mass/Vol] 25 mg/dL High 7-18 [facility] [place] Comment on above: Performed By: #### A DIFF, CMP, URIC, ANEU, CBC, TSH, VIDH, LIPID, CAION, A1C, FERR, GFR, FT4 #### [address] [address] #### PTH #### [address] [address] FT4on 02-19-2025 Free T4 [Mass/Vol] 1.02 ng/dL Normal 0.76-1.46 [facility] Comment on above: Performed By: #### A DIFF, CMP, URIC, ANEU, CBC, TSH, VIDH, LIPID, CAION, A1C, FERR, GFR, FT4 #### [address] [address] #### PTH #### [address], [place] [address] LABORATORYOrdered By: SYSTEM SYSTEM on 02-19-2025 25-hydroxyvitamin [...] calculated value from Hemoglobin A1C and is small business representative of the average blood glucose level [...] 96.2 pg/mL High 18.5 - 88.0 pg/mL AH [...] 02-19-2025 Cholesterol [Mass/Vol] 74 mg/dL Normal 0-200 [facility] [place] Comment on above: Result Comment: Chol esterol Reference Interval: Less than 200 Desirable 200-239 Borderline high risk 240 and above High risk Performed By: #### A DIFF, CMP, URIC, ANEU, CBC, TSH, VIDH, LIPID, CAION, A1C, FERR, GFR, FT4 #### [address] [address] #### PTH #### [address] [address] Cholesterol in HDL [Mass/Vol] 39 mg/dL Low 40-60 [facility] [place] Comment on above: Performed By: #### A DIFF, CMP, URIC, ANEU, CBC, TSH, VIDH, LIPID, CAION, A1C, FERR, GFR, FT4 #### [address] [address] #### PTH #### [address] [address] Cholesterol in LDL [Mass/Vol] 20 mg/dL Normal 0-130 [facility] [place] Comment on above: Performed By: #### A DIFF, CMP, URIC, ANEU, CBC, TSH, VIDH, LIPID, CAION, A1C, FERR, GFR, FT4 #### [address] [address] #### PTH #### [address] [address] Triglyceride [Mass/Vol] 75 mg/dL Normal 0-150 [facility] [place] Comment on above: Result Comment: Trig lyceride Reference Interval: Less than 150 Normal 150-199 Borderline high risk 200-499 High risk 500 or higher Very high risk Performed By: #### A DIFF, CMP, URIC, ANEU, CBC, TSH, VIDH, LIPID, CAION, A1C, FERR, GFR, FT4 #### [place] [address] #### PTH #### [place] [address] PSAon 02-19-2025 Prostate Specific Antigen 0.27 ng/mL Normal 0.00-4.00 [facility] [place] Comment on above: Order Comment: feliciano otto to Dr. Palmer Performed By: #### A DIFF, CMP, URIC, ANEU, CBC, TSH, VIDH, LIPID, CAION, A1C, FERR, GFR, FT4 #### [place] [address] #### PTH #### [place] [address] PTHon 02-19-2025 PTH, Intact 96.2 pg/mL High 18.5-88.0 [facility] [place] Comment on above: Performed By: #### A DIFF, CMP, URIC, ANEU, CBC, TSH, VIDH, LIPID, CAION, A1C, FERR, GFR, FT4 #### [place] [address] #### PTH #### [place] [address] TSHon 02-19-2025 TSH Qn 0.98 m[IU]/L Normal 0.36-3.74 [facility] [place] Comment on above: Performed By: #### A DIFF, CMP, URIC, ANEU, CBC, TSH, VIDH, LIPID, CAION, A1C, FERR, GFR, FT4 #### [place] [id number] #### PTH #### [place] [id number] URICon 02-19-2025 Uric Acid Lvl 6.8 mg/dL Normal 3.5-7.2 [facility] [place] Comment on above: Performed By: #### A DIFF, CMP, URIC, ANEU, CBC, TSH, VIDH, LIPID, CAION, A1C, FERR, GFR, FT4 #### [address] [address] #### PTH #### [address] [address] VIDHon 02-19-2025 Vit. D 25-Hydroxy 53.5 ng/mL Normal [facility] [place] Comment on above: Result Comment: Inte rpretive Values Based on Total 25(OH) Vitamin D: Deficient <20 ng/mL Insufficient 20 - <30 ng/mL Sufficient 30-100 ng/mL Performed By: #### A DIFF, CMP, URIC, ANEU, CBC, TSH, VIDH, LIPID, CAION, A1C, FERR, GFR, FT4 #### [place] [id number] #### PTH #### [address] [address] .GFRon 02-18-2025 Estimated Glomerular Filtration Rate 48 ml/min/1.73sqm Normal [facility] [place] Comment on above: Result Comment: Stages of [...] LIPID, CAION, A1C, FERR, GFR, FT4 #### [address] [address] #### PTH #### [address] [address] CREon 02-18-2025 Creatinine [Mass/Vol] 1.42 mg/dL High 0.67-1.17 [facility] Comment on above: Performed By: #### A DIFF, CMP, URIC, ANEU, CBC, TSH, VIDH, LIPID, CAION, A1C, FERR, GFR, FT4 #### [facility] [address] [place], [place] [address] #### PTH #### [place] [id number] [place] [address] ABDOMEN/PELVIS W/CONTRAST on 02-18-2025 CT ABDOMEN/PELVIS [...] 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 No [...] Sign Date: 02/18/2025 1:55:53 PM Ordering Provider: RADNY CAMACHO Normal [facility] [place] LABORATORYOrdered By: SYSTEM SYSTEM on 02-18-2025 Creatinine [...] 01/09/2025 6:28:33 AM Ordering Provider: SP POPE Normal [facility] [place] A1Con 09-16-2024 Glucose [Mass/Vol] 131 mg/dL Normal [facility] Comment on above: Result Comment: Cony mated Average Glucose calculated by equation ((28.7xA1C)-46.7) Estimated average glucose (eAG) is a calculated value from Hemoglobin A1C and is small business representative of the average blood glucose level in the last 2-3 month period. Normal range: less than 114 mg/dL Performed By: #### A DIFF, CMP, URIC, ANEU, CBC, TSH, VIDH, LIPID, CAION, A1C, FERR, GFR, FT4 #### [address] [address] #### PTH #### [address] [address] HbA1c (Bld) [Mass fraction] 6.2 % Normal 4.3-6.4 [facility] [place] Comment on above: Performed By: #### A DIFF, CMP, URIC, ANEU, CBC, TSH, VIDH, LIPID, CAION, A1C, FERR, GFR, FT4 #### [address] [address] #### PTH #### [address] [address] .GFRon 02-04-2025 Estimated Glomerular Filtration Rate 44 ml/min/1.73sqm Normal [facility] [place] Comment on above: Result Comment: Stages of [...] LIPID, CAION, A1C, FERR, GFR, FT4 #### [address] [address] #### PTH #### [place] [address] .Urinalysis Microscopic (AO) on 09-15-2024 UA Bacteria 2+ /hpf Abnormal [facility] [place] Comment on above: Performed By: #### A DIFF, CMP, URIC, ANEU, CBC, TSH, VIDH, LIPID, CAION, A1C, FERR, GFR, FT4 #### [address] [address] #### PTH #### [place] [address] UA RBC 5-10 Abnormal None Seen [facility] [place] Comment on above: Performed By: #### A DIFF, CMP, URIC, ANEU, CBC, TSH, VIDH, LIPID, CAION, A1C, FERR, GFR, FT4 #### [address] [address] #### PTH #### [place] [address] UA Squam Epithelial 0-5 Abnormal None Seen [facility] Comment on above: Performed By: #### A DIFF, CMP, URIC, ANEU, CBC, TSH, VIDH, LIPID, CAION, A1C, FERR, GFR, FT4 #### [address] [address] #### PTH #### [address] [address] UA WBC LOADED Abnormal None Seen [facility] [place] Comment on above: Performed By: #### A DIFF, CMP, URIC, ANEU, CBC, TSH, VIDH, LIPID, CAION, A1C, FERR, GFR, FT4 #### [address] [address] #### PTH #### [address] [address] BMPon 09-15-2024 BUN/Creatinine Ratio 21 ratio Normal 7-27 [facility] Comment on above: Performed By: #### A DIFF, CMP, URIC, ANEU, CBC, TSH, VIDH, LIPID, CAION, A1C, FERR, GFR, FT4 #### [address] [address] #### PTH #### [address] [address] Calcium [Mass/Vol] 8.5 mg/dL Normal 8.4-10.2 [facility] Comment on above: Performed By: #### A DIFF, CMP, URIC, ANEU, CBC, TSH, VIDH, LIPID, CAION, A1C, FERR, GFR, FT4 #### [address] [address] #### PTH #### [address] [address] Chloride [Moles/Vol] 102 mmol/L Normal 98-107 [facility] Comment on above: Performed By: #### A DIFF, CMP, URIC, ANEU, CBC, TSH, VIDH, LIPID, CAION, A1C, FERR, GFR, FT4 #### [address] [address] #### PTH #### [address] [address] CO2 [Moles/Vol] 27 mmol/L Normal 23-31 [facility] Comment on above: Performed By: #### A DIFF, CMP, URIC, ANEU, CBC, TSH, VIDH, LIPID, CAION, A1C, FERR, GFR, FT4 #### [address] [address] #### PTH #### [address] [address] Creatinine [Mass/Vol] 1.53 mg/dL High 0.70-1.30 [facility] Comment on above: Result Comment: Test ing performed on Siemens Dimension EXL analyzer using a modified kinetic Ellie technique. Performed By: #### A DIFF, CMP, URIC, ANEU, CBC, TSH, VIDH, LIPID, CAION, A1C, FERR, GFR, FT4 #### [address] [address] #### PTH #### [address] [address] Electrolyte Balance 6.0 mEq/L Normal 4.0-15.0 [facility] Comment on above: Performed By: #### A DIFF, CMP, URIC, ANEU, CBC, TSH, VIDH, LIPID, CAION, A1C, FERR, GFR, FT4 #### [address] [address] #### PTH #### [address] [address] Glucose [Mass/Vol] 107 mg/dL Normal 83-110 [facility] Comment on above: Performed By: #### A DIFF, CMP, URIC, ANEU, CBC, TSH, VIDH, LIPID, CAION, A1C, FERR, GFR, FT4 #### [address] [address] #### PTH #### [address] [address] Potassium [Moles/Vol] 4.7 mmol/L Normal 3.5-5.1 [facility] Comment on above: Performed By: #### A DIFF, CMP, URIC, ANEU, CBC, TSH, VIDH, LIPID, CAION, A1C, FERR, GFR, FT4 #### [address] [address] #### PTH #### [place] [phone] Sodium [Moles/Vol] 135 mmol/L Low 136-145 [facility] Comment on above: Performed By: #### A DIFF, CMP, URIC, ANEU, CBC, TSH, VIDH, LIPID, CAION, A1C, FERR, GFR, FT4 #### [address] [address] #### PTH #### [place] [address] Urea nitrogen [Mass/Vol] 32 mg/dL High 7-18 [facility] Comment on above: Performed By: #### A DIFF, CMP, URIC, ANEU, CBC, TSH, VIDH, LIPID, CAION, A1C, FERR, GFR, FT4 #### [address] [address] #### PTH #### [place] [address] LABORATORYOrdered By: SYSTEM SYSTEM on 09-15-2024 Calcium [Mass/Vol] 8.5 mg/dL [...] Panel Informationon 09-15 Aerococcus urinae Aerococcus urinae [facility] Culture Urine >100,000 cfu/ml Aerococcus urinae Sensitivity testing is not recommended for one of the following reasons: 1. Established susceptibility patterns are available or 2. Interpretative criteria are not available. [facility] UAon 09-15-2024 Color (U) Yellow Normal [facility] Comment on above: Performed By: #### A DIFF, CMP, URIC, ANEU, CBC, TSH, VIDH, LIPID, CAION, A1C, FERR, GFR, FT4 #### [address] [address] #### PTH #### [address] [address] Glucose (U) [Mass/Vol] Negative Normal Negative [facility] Comment on above: Performed By: #### A DIFF, CMP, URIC, ANEU, CBC, TSH, VIDH, LIPID, CAION, A1C, FERR, GFR, FT4 #### [address] [address] #### PTH #### [address] [address] Ketones Ql (U) Negative Normal Negative [facility] Comment on above: Performed By: #### A DIFF, CMP, URIC, ANEU, CBC, TSH, VIDH, LIPID, CAION, A1C, FERR, GFR, FT4 #### [address] [address] #### PTH #### [address] [address] UA Appear Cloudy Abnormal Clear [facility] Comment on above: Performed By: #### A DIFF, CMP, URIC, ANEU, CBC, TSH, VIDH, LIPID, CAION, A1C, FERR, GFR, FT4 #### [address] [address] #### PTH #### [address] [address] UA Blood Moderate Abnormal Negative [facility] Comment on above: Performed By: #### A DIFF, CMP, URIC, ANEU, CBC, TSH, VIDH, LIPID, CAION, A1C, FERR, GFR, FT4 #### [address] [address] #### PTH #### [address] [address] UA Leuk Est Large Abnormal Negative [facility] [place] Comment on above: Performed By: #### A DIFF, CMP, URIC, ANEU, CBC, TSH, VIDH, LIPID, CAION, A1C, FERR, GFR, FT4 #### [address] [address] #### PTH #### [address] [address] UA Nitrite Negative Normal Negative [facility] [place] Comment on above: Performed By: #### A DIFF, CMP, URIC, ANEU, CBC, TSH, VIDH, LIPID, CAION, A1C, FERR, GFR, FT4 #### [address] [address] #### PTH #### [address] [address] UA pH 6.0 Normal 5.0 - 8.0 [facility] [place] Comment on above: Performed By: #### A DIFF, CMP, URIC, ANEU, CBC, TSH, VIDH, LIPID, CAION, A1C, FERR, GFR, FT4 #### [address] [address] #### PTH #### [place] [id number] UA Protein 100 mg/dL Abnormal Negative [facility] [place] Comment on above: Performed By: #### A DIFF, CMP, URIC, ANEU, CBC, TSH, VIDH, LIPID, CAION, A1C, FERR, GFR, FT4 #### [address] [address] #### PTH #### [address] [address] UA Spec Grav 1.020 Normal 1.015-1.025 [facility] [place] Comment on above: Performed By: #### A DIFF, CMP, URIC, ANEU, CBC, TSH, VIDH, LIPID, CAION, A1C, FERR, GFR, FT4 #### [address] [address] #### PTH #### [place] [address] UA Specimen Type Clean Catch Normal [facility] [place] Comment on above: Performed By: #### A DIFF, CMP, URIC, ANEU, CBC, TSH, VIDH, LIPID, CAION, A1C, FERR, GFR, FT4 #### [address] [address] #### PTH #### [place] [address] UA Urobilinogen 0.2 E.U./dL Normal 0.2-1.0 [facility] [place] Comment on above: Performed By: #### A DIFF, CMP, URIC, ANEU, CBC, TSH, VIDH, LIPID, CAION, A1C, FERR, GFR, FT4 #### [place] [address] #### PTH #### [place] [address] Urobilinogen (U) [Mass/Vol] Negative Normal Negative [facility] [place] Comment on above: Performed By: #### A DIFF, CMP, URIC, ANEU, CBC, TSH, VIDH, LIPID, CAION, A1C, FERR, GFR, FT4 #### [place] [address] #### PTH #### [address], [place] [address] .Urinalysis Microscopic (AO) on 08-25-2024 UA Bacteria 3+ /hpf Abnormal [facility] [place] Comment on above: Performed By: #### U A, UAMICAO #### [address] [address] UA RBC None Seen Normal None Seen [facility] [place] Comment on above: Performed By: #### U A, UAMICAO #### [address] [address] UA Squam Epithelial 0-5 Abnormal None Seen [facility] Comment on above: Performed By: #### U A, UAMICAO #### [place] [address] UA WBC 15-25 Abnormal None Seen [facility] [place] Comment on above: Performed By: #### U A, UAMICAO #### [address] [address] UAon 08-25-2024 Color (U) Yellow Normal [facility] [place] Comment on above: Performed By: #### U A, UAMICAO #### [place] [address] Glucose (U) [Mass/Vol] Negative Normal Negative [facility] [place] Comment on above: Performed By: #### U A, UAMICAO #### [address] [address] Ketones Ql (U) Negative Normal Negative [facility] [place] Comment on above: Performed By: #### U A, UAMICAO #### [address] [address] UA Appear Slightly Cloudy Abnormal Clear [facility] [place] Comment on above: Performed By: #### U A, UAMICAO #### [address] [address] UA Blood Negative Normal Negative [facility] [place] Comment on above: Performed By: #### U A, UAMICAO #### [address] [address] UA Leuk Est Small Abnormal Negative [facility] [place] Comment on above: Performed By: #### U A, UAMICAO #### [place] [address] UA Nitrite Negative Normal Negative [facility] [place] Comment on above: Performed By: #### U A, UAMICAO #### [place] [address] UA pH 5.5 Normal 5.0 - 8.0 [facility] [place] Comment on above: Performed By: #### U A, UAMICAO #### [place] [address] UA Protein Negative Normal Negative [facility] [place] Comment on above: Performed By: #### U A, UAMICAO #### [place] [address] UA Spec Grav 1.015 Normal 1.015-1.025 [facility] [place] Comment on above: Performed By: #### U A, UAMICAO #### [place] [address] UA Specimen Type Clean Catch Normal [facility] [place] Comment on above: Performed By: #### U A, UAMICAO #### [place] [address] UA Urobilinogen 0.2 E.U./dL Normal 0.2-1.0 [facility] [place] Comment on above: Performed By: #### U A, UAMICAO #### [place] [address] Urobilinogen (U) [Mass/Vol] Negative Normal Negative [facility] [place] Comment on above: Performed By: #### U A, UAMICAO #### [place] [address] LABORATORYOrdered By: Elder Fitzpatrick on 08-24-2024 Appearance [...] d growth consistent with normal urogenital [facility] LABORATORYOrdered By: Isa Lomeli on 04-29-2024 Albumin [...] calculated value from Hemoglobin A1C and is small business representative of the average blood glucose level [...] AO Workflow SS Final Surgical Pathology Rep [facility] 02-17-2024 Final Surgical Pathology Report . Pathology Reports Accession: Collected Date/Time: Received Date/Time: Pathologist: [id number] 02/12/2024 12:30 EDT 02/12/2024 13:55 EDT JAMEE [...] All parts labelled with patient name and [id number] A. Received in formalin, labeled "abdomen" are multiple friable, wispy fragments of core shaped [place] tissue, in aggregate 1.2 x 0.4 x 0.1 cm.. TS-1 B. Received in RPMI media, labeled "mesenteric" is a friable core shaped fragment of pink[place] tissue measuring 1.2 cm in length by 0.1 cm in diameter. This is entirely submitted for flow cytometry evaluation. Gross examination only. Roe Wright MD Performed by ROE WRIGHT MICROSCOPIC DESCRIPTION: The microscopic examination is performed, except in the case of Gross Only. Electronically Signed by Pathology Report verified by [facility] [place] [facility] JAMEE BRUMFIELD Sign out Date: 02/17/2024 15:54 Performing Lab: [facility] [place] [facility], [address] [place] [address] Pathology Dept Disclaimer If ancillary studies were utilized, the following Laboratory Developed Test (LDT) disclaimer will apply: Pathology Reports Accession: Collected Date/Time: Received Date/Time: Pathologist: [id number] 02/12/2024 12:30 EDT 02/12/2024 13:55 EDT JAMEE BRUMFIELD MD Disclaimer Under CLIA requirements, [facility] [place] [facility] is qualified to perform high complexity testing. For all ancillary stains, positive and negative controls stain appropriately. Performance characteristics of immunohistochemical and chromogenic in-situ hybridization tests have been determined by [facility] [place] [facility]. These tests are used for clinical purposes, They should not be regarded as investigational or for research. Normal [facility] .Auto Diffon 02-12-2024 Basophil, Absolute 0.0 10 3/mcL Normal 0.0-0.3 [facility] Comment on above: Performed By: #### G FR, CRE #### [address] [address] Basophils/100 WBC (Bld) 0.5 % Normal 0.0-2.5 [facility] Comment on above: Performed By: #### G FR, CRE #### [address] [address] Eosinophil, Absolute 0.2 10 3/mcL Normal 0.0-0.7 [facility] ([place]) Comment on above: Performed By: #### G FR, CRE #### [address] [address] Eosinophils/100 WBC (Bld) 2.8 % Normal 0.0-6.0 [facility] Comment on above: Performed By: #### G FR, CRE #### [address] [address] Lymphocyte, Absolute 1.9 10 3/mcL Normal 0.9-4.3 [facility] ([place]) Comment on above: Performed By: #### G FR, CRE #### [address] [address] Lymphocytes/100 WBC (Bld) 27.8 % Normal 20.0-40.0 [facility] Comment on above: Performed By: #### G FR, CRE #### [address] [address] Monocyte, Absolute 0.5 10 3/mcL Normal 0.1-1.4 [facility] Comment on above: Performed By: #### G FR, CRE #### [address] [address] Monocytes/100 WBC (Bld) 6.9 % Normal 2.0-13.0 [facility] Comment on above: Performed By: #### G FR, CRE #### [place] [address] [address] Neutrophils/100 WBC (Bld) 62.0 % Normal 50.0-75.0 [facility] Comment on above: Performed By: #### Ronna FR, CRE #### [place] [address] [address] .GFRon 02-12-2024 GFR >60 Normal [facility] Comment on above: Result Comment: GFR Population [...] Performed By: #### Ronna SANCHES, CRE #### [address] [address] GFR Non- 54 ml/min/1.73sqm Normal [facility] Comment on above: Result Comment: GFR Population [...] mL/min/1.73 square meters Performed By: #### Ronna FR, CRE #### [place] [address] [address] .NEUABSon 02-12-2024 Neutrophil, Absolute 4.2 10 3/mcL Normal 2.3-8.1 [facility] ([place]) Comment on above: Performed By: #### Ronna SANCHES, CRE #### [address] [address] CBCon 02-12-2024 Erythrocyte distribution width (RBC) [Ratio] 14.2 % Normal 11.5-15.5 [facility] Comment on above: Performed By: #### Ronna SANCHES, CRE #### [address] [address] Hematocrit (Bld) [Volume fraction] 38.9 % Low 40.0-52.0 [facility] Comment on above: Performed By: #### Ronna SANCHES, CRE #### [place] [id number] Hgb 13.1 G/dL Normal 13.0-17.5 [facility] Comment on above: Performed By: #### Ronna SANCHES, CRE #### [address] [address] MCH (RBC) [Entitic mass] 30.1 pg Normal 27.0-33.0 [facility] Comment on above: Performed By: #### Ronna FR, CRE #### [address] [address] MCHC 33.6 G/dL Normal 32.0-36.0 [facility] ([place] Comment on above: Performed By: #### Ronna FR, CRE #### [address] [address] MCV (RBC) [Entitic vol] 89.7 fL Normal 81.0-100.0 [facility] ([place] Comment on above: Performed By: #### Ronna FR, CRE #### [address] [address] Platelet 238 10 3/mcL Normal 150-450 [facility] ([place] Comment on above: Performed By: #### Ronna FR, CRE #### [place] [address] [place], [place] [address] Platelet mean volume (Bld) [Entitic vol] 7.9 fL Normal 6.4-10.5 [facility] ([place] Comment on above: Performed By: #### G FR, CRE #### [address] [address] RBC 4.33 10 6/mcL Low 4.50-6.00 [facility] ([place] Comment on above: Performed By: #### G FR, CRE #### [address] [address] WBC 6.7 10 3/mcL Normal 4.5-10.8 [facility] Comment on above: Performed By: #### G FR, CRE #### [address] [address] CREon 02-12-2024 Creatinine [Mass/Vol] 1.26 mg/dL Normal 0.60-1.40 [facility] ([place]) Comment on above: Performed By: #### G FR, CRE #### [address] [address] IR BIOPSY ABDOMENon 02-12-20 24 IR BIOPSY [...] CT guided core biopsy, LUQ mesenteric lesion WATER RESTORATION TECHNICIAN: Dr. Gore DISTRIBUTING CLERK: None MATERIALS: 18G core biopsy device ANESTHESIA: [...] needle tract to reduce risk of bleeding. [place] removed. Sterile dressing placed. COMPLICATIONS: None EBL: [...] 02/12/2024 4:51:53 PM Ordering Provider: BRITTANY Barnes [facility] ([place]) LABORATORYOrdered By: SYSTEM SYSTEM on 02-12-2024 Basophils (Bld) [#/Vol] 0.0 103/mcL Normal 0.0 - 0.3 10^3/mcL Workflow SS Basophils/100 WBC (Bld) 0.5 % Normal 0.0 - 2.5 % Workflow SS Creatinine [Mass/Vol] 1.26 mg/dL Normal 0.60 - 1.40 mg/dL AH ADM SS Eosinophils (Bld) [#/Vol] 0.2 103/mcL Normal 0.0 - 0.7 10^3/mcL Workflow SS Eosinophils/100 WBC (Bld) 2.8 % Normal 0.0 - 6.0 % Workflow SS Erythrocyte distribution width (RBC) [Ratio] 14.2 % Normal 11.5 - 15.5 % Workflow SS GFR/1.73 sq M.predicted among blacks MDRD (S/P/Bld) [Vol rate/Area] ml/min/1.73sqm Invalid Interpretation Code Chemistry S Comment on above: Interpretive Data: [...] [Vol rate/Area] 54 ml/min/1.73sqm Invalid Interpretation Code Chemistry S Comment on above: Interpretive Data: [...] 89.7 fL Normal 81.0 - 100.0 fL Workflow SS Monocytes (Bld) [#/Vol] 0.5 103/mcL [...] 238 103/mcL Normal 150 - 450 10^3/mcL Workflow SS RBC (Bld) [#/Vol] 4.33 106/mcL Low 4.50 - 6.0 0 10^6/mcL Workflow SS WBC (Bld) [#/Vol] 6.7 103/mcL [...] 02/12/24, 10:39 AM Interpretive Data: Yina [place]is [employer] (CHEST, 1992, 102:312S-25S) recommended therapeutic range for oral anticoagulant therapy is: LOW RISK: Prophylaxis of venous thrombosis INR: 2.0-3.0 Treatment of pulmonary embolism 2.0-3.0 Prevention of systemic embolism 2.0-3.0 HIGH RISK: Mechanical prosthetic valves 2.5-3.5 PROon 02-12-2024 INR Coag (PPP) [Relative time] 1.1 {INR} Normal [facility] ([place] Comment on above: Result Comment: Spec imen slightly hemolyzed. Results may be affected. 02/12/24, 10:39 AM [employer] (CHEST, 1992, 102:312S-25S) recommended therapeutic range for oral anticoagulant therapy is: LOW RISK: Prophylaxis of venous thrombosis INR: 2.0-3.0 Treatment of pulmonary embolism 2.0-3.0 Prevention of systemic embolism 2.0-3.0 HIGH RISK: Mechanical prosthetic valves 2.5-3.5 Performed By: #### Ronna SANCHES, CRE #### [address] [address] PT Coag (PPP) [Time] 12.2 s Normal 9.0-14.4 [facility] Comment on above: Result Comment: Spec imen slightly hemolyzed. Results may be affected. 02/12/24, 10:39 AM Effective 02/24/08, Protime results may be affected by some antibiotics (i.e. Ciprofloxacin, Azithromycin, Bactrim) which may potentiate the action of oral anticoagulants, with further increases in Protime/INR. Performed By: #### Ronna SANCHES, CRE #### [address] [address] BD BONE DENSITY DEXA AXIAL S [facility] 01-01-2024 BD BONE DENSITY DEXA AXIAL SKELETON [...] 01/01/2024 3:45:07 PM Ordering Provider: SP POPE [facility] .GFRon 12-02-2023 GFR 55 ml/min/1.73sqm Normal [facility] ([place] Comment on above: Result Comment: GFR Population [...] Performed By: #### G , CRE #### [address] [address] GFR Non- 45 ml/min/1.73sqm Normal [facility] ([place] Comment on above: Result Comment: GFR Population [...] Performed By: #### G , CRE #### [address] [address] CREon 12-02-2023 Creatinine [Mass/Vol] 1.47 mg/dL High 0.70-1.30 [facility] ([place]) Comment on above: Performed By: #### G FR, CRE #### [address] [address] [address] ABDOMEN/PELVIS W/CONTRAST on 12-02-2023 CT ABDOMEN/PELVIS [...] 12/02/2023 4:48:20 PM Ordering Provider: RANDY CAMACHO [facility] ([place] LABORATORYOrdered By: SYSTEM SYSTEM on 12-02-2023 Creatinine [...] meters .GFRon 10-14-2023 GFR 53 ml/min/1.73sqm Normal [facility] ([place] Comment on above: Result Comment: GFR Population [...] #### G FR, RFP, VIDH, CAION ####[place] [place], [place] [address]#### PTH ####[place] [address] GFR Non- 43 ml/min/1.73sqm Normal [facility] ([place] Comment on above: Result Comment: GFR Population [...] #### G FR, RFP, VIDH, CAION ####[place] [place] [id number]#### PTH ####[place] [address] CAIONon 10-14-2023 Calcium Ionized 1.19 mmol/L Normal 1.12-1.32 [facility] ([place] Comment on above: Performed By: #### G FR, RFP, VIDH, CAION ####[place] [place] [id number]#### PTH ####[place] [address] LABORATORYOrdered By: SYSTEM SYSTEM on 10-14-2023 25-hydroxyvitamin [...] 10-14-2023 PTH, Intact 91.9 pg/mL High 18.5-88.0 [facility] ([place] Comment on above: Performed By: #### G , CRE #### [address] [address] RFPon 10-14-2023 Albumin Level 3.0 G/dL Low 3.4-4.8 [facility] ([place] Comment on above: Performed By: #### G , AMISHA GRAY CAION ####[address] [address]#### PTH ####[address] [address] BUN/Creatinine Ratio 18 ratio Normal 7-27 [facility] Comment on above: Performed By: #### G , AMISHA GRAY CAION ####[facility] [place] [address]#### PTH ####[address] [address] Calcium [Mass/Vol] 8.4 mg/dL Normal 8.4-10.2 [facility] ([place]) Comment on above: Performed By: #### G FR, RFP, VIDH, CAION ####[place] [address]#### PTH ####[address] [address] Chloride [Moles/Vol] 105 mmol/L Normal 98-107 [facility] Comment on above: Performed By: #### G FR, RFP, VIDH, CAION ####[place] [address]#### PTH ####[place] [address] CO2 [Moles/Vol] 30 mmol/L Normal 23-31 [facility] ([place] Comment on above: Performed By: #### G FR, RFP, VIDH, CAION ####[place] [address]#### PTH ####[place] [address] Creatinine [Mass/Vol] 1.53 mg/dL High 0.70-1.30 [facility] ([place]) Comment on above: Performed By: #### G FR, RFP, VIDH, CAION ####[place] [address] [address]#### PTH ####[address] [address] Electrolyte Balance 6.0 mEq/L Normal 4.0-15.0 [facility] ([place]) Comment on above: Performed By: #### G FR, RFP, VIDH, CAION ####[place] [place] [address]#### PTH ####[place] [address] Glucose [Mass/Vol] 97 mg/dL Normal 83-110 [facility] ([place]) Comment on above: Performed By: #### G FR, RFP, AMISHA CAION ####[address] [place], [place] [address]#### PTH ####[address] [address] Phosphate [Mass/Vol] 2.5 mg/dL Normal 2.3-4.1 [facility] Comment on above: Performed By: #### G FR, RFP, AMISHA, CAION ####[address] [place], [place] [address]#### PTH ####[address] [address] Potassium [Moles/Vol] 4.5 mmol/L Normal 3.5-5.1 [facility] ([place]) Comment on above: Performed By: #### G FR, RFP, AMISHA, CAILEATHA ####[place] [place] [place] [address]#### PTH ####[address] [address] Sodium [Moles/Vol] 141 mmol/L Normal 136-145 [facility] ([place]) Comment on above: Performed By: #### G FR, RFP, AMISHA, CAION ####[address] [place], [place] [address]#### PTH ####[address] [address] Urea nitrogen [Mass/Vol] 27 mg/dL High 7-18 [facility] Comment on above: Performed By: #### G FR, RFP, AMISHA, CAION ####[place] [place], [place] [address]#### PTH ####[address] [address] VIDHon 10-14-2023 Vit. D 25-Hydroxy 53.7 ng/mL Normal [facility] Comment on above: Result Comment: Inte rpretive Values Based on Total 25(OH) Vitamin D: Deficient <20 ng/mL Insufficient 20 - <30 ng/mL Sufficient 30-100 ng/mL Performed By: #### G FR, RFP, VIDH, CAION ####[address] [address]#### PTH ####[address] [address] .Auto Diffon 10-02-2023 Basophil, Absolute 0.0 10 3/mcL Normal 0.0-0.2 [facility] Comment on above: Performed By: #### A DIFF, ANEU, VIDH, LIPID, TSH, FT4, URIC, FERR, GFR, CMP, CBC #### [address] [address] #### PTH #### [address] [address] Basophils/100 WBC (Bld) 0.4 % Normal 0.0-2.5 [facility] ([place] Comment on above: Performed By: #### A DIFF, ANEU, VIDH, LIPID, TSH, FT4, URIC, FERR, GFR, CMP, CBC #### [address] [address] #### PTH #### [address] [address] Eosinophil, Absolute 0.2 10 3/mcL Normal 0.0-0.4 [facility] ([place]) Comment on above: Performed By: #### A DIFF, ANEU, VIDH, LIPID, TSH, FT4, URIC, FERR, GFR, CMP, CBC #### [address] [address] #### PTH #### [address] [address] Eosinophils/100 WBC (Bld) 3.1 % Normal 0.0-7.0 [facility] ([place] Comment on above: Performed By: #### A DIFF, ANEU, VIDH, LIPID, TSH, FT4, URIC, FERR, GFR, CMP, CBC #### [address] [place] [address] #### PTH #### [address] [address] Lymphocyte, Absolute 2.3 10 3/mcL Normal 0.8-3.9 [facility] ([place]) Comment on above: Performed By: #### A DIFF, ANEU, VIDH, LIPID, TSH, FT4, URIC, FERR, GFR, CMP, CBC #### [address] [address] #### PTH #### [address] [address] Lymphocytes/100 WBC (Bld) 32.8 % Normal 10.0-50.0 [facility] ([place] Comment on above: Performed By: #### A DIFF, ANEU, VIDH, LIPID, TSH, FT4, URIC, FERR, GFR, CMP, CBC #### [address] [address] #### PTH #### [address] [address] Monocyte, Absolute 0.5 10 3/mcL Normal 0.2-1.0 [facility] Comment on above: Performed By: #### A DIFF, ANEU, VIDH, LIPID, TSH, FT4, URIC, FERR, GFR, CMP, CBC #### [address] [address] #### PTH #### [address] [address] Monocytes/100 WBC (Bld) 7.1 % Normal 1.7-13.0 [facility] ([place] Comment on above: Performed By: #### A DIFF, ANEU, VIDH, LIPID, TSH, FT4, URIC, FERR, GFR, CMP, CBC #### [address] [address] #### PTH #### [address] [address] Neutrophils/100 WBC (Bld) 56.6 % Normal 37.0-80.0 [facility] Comment on above: Performed By: #### A DIFF, ANEU, VIDH, LIPID, TSH, FT4, URIC, FERR, GFR, CMP, CBC #### [address] [address] #### PTH #### [address] [address] .GFRon 10-02-2023 GFR 53 ml/min/1.73sqm Normal [facility] ([place] Comment on above: Result Comment: GFR Population [...] TSH, FT4, URIC, FERR, GFR, CMP, CBC ####[address] [address]#### PTH ####[address] [address] GFR Non- 43 ml/min/1.73sqm Normal [facility] ([place] Comment on above: Result Comment: GFR Population [...] TSH, FT4, URIC, FERR, GFR, CMP, CBC ####[address] [address]#### PTH ####[address] [address] .NEUABSon 10-02-2023 Neutrophil, Absolute 4.0 10 3/mcL Normal 2.9-6.2 [facility] ([place]) Comment on above: Performed By: #### A DIFF, ANEU, VIDH, LIPID, TSH, FT4, URIC, FERR, GFR, CMP, CBC #### [place] [address] #### PTH #### [place] [address] .Urinalysis Microscopic (AO) on 10-02-2023 UA RBC None Seen Normal None Seen [facility] ([place] Comment on above: Performed By: #### G FR, CRE #### [address] [address] UA Squam Epithelial None Seen Normal None Seen [facility] ([place]) Comment on above: Performed By: #### G FR, CRE #### [address] [address] UA WBC None Seen Normal None Seen [facility] Comment on above: Performed By: #### G FR, CRE #### [place] [id number] CBCon 10-02-2023 Erythrocyte distribution width (RBC) [Ratio] 14.2 % Normal 11.5-14.5 [facility] ([place] Comment on above: Performed By: #### A DIFF, ANEU, VIDH, LIPID, TSH, FT4, URIC, FERR, GFR, CMP, CBC #### [place] [address] #### PTH #### [place] [address] Hematocrit (Bld) [Volume fraction] 37.8 % Low 42.0-52.0 [facility] Comment on above: Performed By: #### A DIFF, ANEU, VIDH, LIPID, TSH, FT4, URIC, FERR, GFR, CMP, CBC #### [place] [address] #### PTH #### [place] [address] Hgb 12.8 G/dL Low 14.0-18.0 [facility] Comment on above: Performed By: #### A DIFF, ANEU, VIDH, LIPID, TSH, FT4, URIC, FERR, GFR, CMP, CBC #### [place] [address] #### PTH #### [place] [address] MCH (RBC) [Entitic mass] 30.0 pg Normal 27.0-31.2 [facility] Comment on above: Performed By: #### A DIFF, ANEU, VIDH, LIPID, TSH, FT4, URIC, FERR, GFR, CMP, CBC #### [place] [address] #### PTH #### [place] [address] MCHC 33.7 G/dL Normal 31.8-35.4 [facility] Comment on above: Performed By: #### A DIFF, ANEU, VIDH, LIPID, TSH, FT4, URIC, FERR, GFR, CMP, CBC #### [place] [address] #### PTH #### [place] [address] MCV (RBC) [Entitic vol] 88.9 fL Normal 80.0-94.0 [facility] Comment on above: Performed By: #### A DIFF, ANEU, VIDH, LIPID, TSH, FT4, URIC, FERR, GFR, CMP, CBC #### [place] [address] #### PTH #### [place] [address] Platelet 232 10 3/mcL Normal 130-400 [facility] Comment on above: Performed By: #### A DIFF, ANEU, VIDH, LIPID, TSH, FT4, URIC, FERR, GFR, CMP, CBC #### [address] [address] #### PTH #### [place] [address] Platelet mean volume (Bld) [Entitic vol] 8.1 fL Normal 7.4-10.4 [facility] Comment on above: Performed By: #### A DIFF, ANEU, VIDH, LIPID, TSH, FT4, URIC, FERR, GFR, CMP, CBC #### [place] [address] #### PTH #### [place] [address] RBC 4.25 10 6/mcL Normal 4.04-6.13 [facility] Comment on above: Performed By: #### A DIFF, ANEU, VIDH, LIPID, TSH, FT4, URIC, FERR, GFR, CMP, CBC #### [place] [address] #### PTH #### [place] [address] WBC 7.0 10 3/mcL Normal 4.6-10.8 [facility] Comment on above: Performed By: #### A DIFF, ANEU, VIDH, LIPID, TSH, FT4, URIC, FERR, GFR, CMP, CBC #### [address] [address] #### PTH #### [place] [address] CMPon 10-02-2023 Albumin Level 3.1 G/dL Low 3.4-4.8 [facility] Comment on above: Performed By: #### A DIFF, ANEU, VIDH, LIPID, TSH, FT4, URIC, FERR, GFR, CMP, CBC ####[place] [address]#### PTH ####[place] [address] Albumin/Globulin [Mass ratio] 0.8 {ratio} Low 1.1-2.5 [facility] Comment on above: Performed By: #### A DIFF, ANEU, VIDH, LIPID, TSH, FT4, URIC, FERR, GFR, CMP, CBC ####[place] [address]#### PTH ####[place] [address] ALP [Catalytic activity/Vol] 134 U/L Normal 40-135 [facility] Comment on above: Performed By: #### A DIFF, ANEU, VIDH, LIPID, TSH, FT4, URIC, FERR, GFR, CMP, CBC ####[place] [address]#### PTH ####[place] [address] ALT [Catalytic activity/Vol] 16 U/L Normal 16-63 [facility] Comment on above: Performed By: #### A DIFF, ANEU, VIDH, LIPID, TSH, FT4, URIC, FERR, GFR, CMP, CBC ####[place] [address]#### PTH ####[place] [address] AST [Catalytic activity/Vol] 19 U/L Normal 10-40 [facility] Comment on above: Performed By: #### A DIFF, ANEU, VIDH, LIPID, TSH, FT4, URIC, FERR, GFR, CMP, CBC ####[place] [address]#### PTH ####[place] [address] Bili Total 0.3 mg/dL Normal 0.2-1.0 [facility] Comment on above: Result Comment: Use of this assay is not recommended for patients undergoing treatment with eltrombopag due to the potential for falsely elevated results. Performed By: #### A DIFF, ANEU, VIDH, LIPID, TSH, FT4, URIC, FERR, GFR, CMP, CBC ####[place] [address]#### PTH ####[place] [address] BUN/Creatinine Ratio 16 ratio Normal 7-27 [facility] Comment on above: Performed By: #### A DIFF, ANEU, VIDH, LIPID, TSH, FT4, URIC, FERR, GFR, CMP, CBC ####[place] [address]#### PTH ####[place] [address] Calcium [Mass/Vol] 8.1 mg/dL Low 8.4-10.2 [facility] ([place]) Comment on above: Performed By: #### A DIFF, ANEU, VIDH, LIPID, TSH, FT4, URIC, FERR, GFR, CMP, CBC ####[place] [address]#### PTH ####[place] [address] Chloride [Moles/Vol] 106 mmol/L Normal 98-107 [facility] [place] Comment on above: Performed By: #### A DIFF, ANEU, VIDH, LIPID, TSH, FT4, URIC, FERR, GFR, CMP, CBC ####[place] [address]#### PTH ####[place] [address] CO2 [Moles/Vol] 30 mmol/L Normal 23-31 [facility] ([place] Comment on above: Performed By: #### A DIFF, ANEU, VIDH, LIPID, TSH, FT4, URIC, FERR, GFR, CMP, CBC ####[place] [address]#### PTH ####[place] [address] Creatinine [Mass/Vol] 1.53 mg/dL High 0.70-1.30 [facility] ([place]) Comment on above: Performed By: #### A DIFF, ANEU, VIDH, LIPID, TSH, FT4, URIC, FERR, GFR, CMP, CBC ####[place] [address]#### PTH ####[place] [address] Electrolyte Balance 6.0 mEq/L Normal 4.0-15.0 [facility] ([place]) Comment on above: Performed By: #### A DIFF, ANEU, VIDH, LIPID, TSH, FT4, URIC, FERR, GFR, CMP, CBC ####[place] [address]#### PTH ####[place] [address] Globulin 3.8 G/dL Normal [facility] ([place] Comment on above: Performed By: #### A DIFF, ANEU, VIDH, LIPID, TSH, FT4, URIC, FERR, GFR, CMP, CBC ####[place] [address]#### PTH ####[place] [address] Glucose [Mass/Vol] 97 mg/dL Normal 83-110 [facility] ([place]) Comment on above: Performed By: #### A DIFF, ANEU, VIDH, LIPID, TSH, FT4, URIC, FERR, GFR, CMP, CBC ####[place] [address]#### PTH ####[place] [address] Potassium [Moles/Vol] 4.7 mmol/L Normal 3.5-5.1 [facility] ([place]) Comment on above: Performed By: #### A DIFF, ANEU, VIDH, LIPID, TSH, FT4, URIC, FERR, GFR, CMP, CBC ####[address] [address]#### PTH ####[address] [address] Sodium [Moles/Vol] 142 mmol/L Normal 136-145 [facility] ([place]) Comment on above: Performed By: #### A DIFF, ANEU, VIDH, LIPID, TSH, FT4, URIC, FERR, GFR, CMP, CBC ####[place] [address]#### PTH ####[address] [address] Total Protein 6.9 G/dL Normal 6.4-8.2 [facility] ([place] Comment on above: Performed By: #### A DIFF, ANEU, VIDH, LIPID, TSH, FT4, URIC, FERR, GFR, CMP, CBC ####[place] [address]#### PTH ####[address] [address] Urea nitrogen [Mass/Vol] 24 mg/dL High 7-18 [facility] ([place] Comment on above: Performed By: #### A DIFF, ANEU, VIDH, LIPID, TSH, FT4, URIC, FERR, GFR, CMP, CBC ####[address] [address]#### PTH ####[place] [address] Minal 10-02-2023 Ferritin [Mass/Vol] 45.0 ng/mL Normal 26.0-388.0 [facility] ([place]) Comment on above: Performed By: #### A DIFF, ANEU, VIDH, LIPID, TSH, FT4, URIC, FERR, GFR, CMP, CBC #### [address] [address] #### PTH #### [address] [address] FT4on 10-02-2023 Free T4 [Mass/Vol] 0.96 ng/dL Normal 0.76-1.46 [facility] ([place]) Comment on above: Performed By: #### A DIFF, ANEU, VIDH, LIPID, TSH, FT4, URIC, FERR, GFR, CMP, CBC #### [place] [id number] [place], [place] [address] #### PTH #### [address] [address] LABORATORYOrdered By: Isa Lomeli on 10-02-2023 Albumin [...] 10-02-2023 Cholesterol [Mass/Vol] 108 mg/dL Normal 0-200 [facility] ([place] Comment on above: Result Comment: Chol esterol Reference Interval: Less than 200 Desirable 200-239 Borderline high risk 240 and above High risk Performed By: #### A DIFF, ANEU, VIDH, LIPID, TSH, FT4, URIC, FERR, GFR, CMP, CBC ####[address] [address]#### PTH ####[place] [address] Cholesterol in HDL [Mass/Vol] 43 mg/dL Normal 40-60 [facility] ([place] Comment on above: Performed By: #### A DIFF, ANEU, VIDH, LIPID, TSH, FT4, URIC, FERR, GFR, CMP, CBC ####[place] [address] [place], [place] [address]#### PTH ####[address] [address] Cholesterol in LDL [Mass/Vol] 52 mg/dL Normal 0-130 [facility] ([place] Comment on above: Performed By: #### A DIFF, ANEU, VIDH, LIPID, TSH, FT4, URIC, FERR, GFR, CMP, CBC ####[place] [address]#### PTH ####[place] [address] Triglyceride [Mass/Vol] 65 mg/dL Normal 0-150 [facility] ([place] Comment on above: Result Comment: Trig lyceride Reference Interval: Less than 150 Normal 150-199 Borderline high risk 200-499 High risk 500 or higher Very high risk Performed By: #### A DIFF, ANEU, VIDH, LIPID, TSH, FT4, URIC, FERR, GFR, CMP, CBC ####[place] [address]#### PTH ####[place] [address] MALBRon 10-02-2023 U Creatinine 85.0 mg/dL Normal 39.0-259.0 [facility] ([place] Comment on above: Performed By: #### G FR, CRE #### [address] [address] U Microalb 504 mcg/dL Normal [facility] ([place] Comment on above: Performed By: #### G FR, CRE #### [address] [address] U Ratio Alb/Cre 6 mcg/mg Normal 0-30 [facility] ([place] Comment on above: Performed By: #### G FR, CRE #### [address] [address] PTHon 10-02-2023 PTH, Intact 133.1 pg/mL High 18.5-88.0 [facility] ([place]) Comment on above: Performed By: #### A DIFF, ANEU, VIDH, LIPID, TSH, FT4, URIC, FERR, GFR, CMP, CBC ####[address] [address]#### PTH ####[facility] [place] [facility] [place] [address] TSHon 10-02-2023 TSH Qn 1.65 m[IU]/L Normal 0.36-3.74 [facility] ([place]) Comment on above: Performed By: #### A DIFF, ANEU, VIDH, LIPID, TSH, FT4, URIC, FERR, GFR, CMP, CBC #### [address] [address] #### PTH #### [facility] [place] [facility] [address] [place] [address] UAon 10-02-2023 Color (U) Yellow Normal [facility] ([place] Comment on above: Order Comment: Vikas wolf has symptoms Performed By: #### G FR, CRE #### [address] [address] Glucose (U) [Mass/Vol] Negative Normal Negative [facility] ([place] Comment on above: Order Comment: Vikas wolf has symptoms Performed By: #### G FR, CRE #### [address] [address] Ketones Ql (U) Negative Normal Negative [facility] ([place] Comment on above: Order Comment: Vikas wolf has symptoms Performed By: #### G FR, CRE #### [address] [address] UA Appear Clear Normal Clear [facility] ([place] Comment on above: Order Comment: Vikas wolf has symptoms Performed By: #### G FR, CRE #### [address] [address] UA Blood Negative Normal Negative [facility] ([place] Comment on above: Order Comment: Vikas wolf has symptoms Performed By: #### G FR, CRE #### [address] [address] UA Leuk Est Trace Abnormal Negative [facility] ([place] Comment on above: Order Comment: Vikas wolf has symptoms Performed By: #### G FR, CRE #### [address] [address] UA Nitrite Negative Normal Negative [facility] ([place] Comment on above: Order Comment: Vikas wolf has symptoms Performed By: #### G FR, CRE #### [address] [address] UA pH 6.5 Normal 5.0 - 8.0 [facility] [place] Comment on above: Order Comment: Vikas wolf has symptoms Performed By: #### G FR, CRE #### [address] [address] UA Protein Negative Normal Negative [facility] ([place] Comment on above: Order Comment: Vikas wolf has symptoms Performed By: #### G FR, CRE #### [address] [address] UA Spec Grav 1.020 Normal 1.015-1.025 [facility] ([place] Comment on above: Order Comment: Vikas wolf has symptoms Performed By: #### G FR, CRE #### [address] [address] UA Specimen Type Clean Catch Normal [facility] ([place] Comment on above: Order Comment: Vikas wolf has symptoms Performed By: #### G FR, CRE #### [address] [address] UA Urobilinogen 0.2 E.U./dL Normal 0.2-1.0 [facility] ([place] Comment on above: Order Comment: Vikas wolf has symptoms Performed By: #### G FR, CRE #### [address] [address] Urobilinogen (U) [Mass/Vol] Negative Normal Negative [facility] ([place] Comment on above: Order Comment: Vikas wolf has symptoms Performed By: #### G FR, CRE #### [address] [address] URICon 10-02-2023 Uric Acid Lvl 5.8 mg/dL Normal 3.5-7.2 [facility] [place] Comment on above: Performed By: #### A DIFF, ANEU, VIDH, LIPID, TSH, FT4, URIC, FERR, GFR, CMP, CBC ####[address] [place], [place] [address]#### PTH ####[place] [address] [place] [address] VIDHon 10-02-2023 Vit. D 25-Hydroxy 64.0 ng/mL Normal [facility] ([place] Comment on above: Result Comment: Inte rpretive Values Based on Total 25(OH) Vitamin D: Deficient <20 ng/mL Insufficient 20 - <30 ng/mL Sufficient 30-100 ng/mL Performed By: #### A DIFF, ANEU, VIDH, LIPID, TSH, FT4, URIC, FERR, GFR, CMP, CBC ####[facility] [place], [place] [address]#### PTH ####[address] [address] [address] ABDOMEN/PELVIS W/CONTRAST on 04-29-2023 CT ABDOMEN/PELVIS [...] 04/29/2023 4:46:04 PM Ordering Provider: RANDY [facility] ([place] .Auto Diffon 04-09-2023 Basophil, Absolute 0.0 10 3/mcL Normal 0.0-0.2 [facility] [place] Comment on above: Performed By: #### G , CRE #### [address] [address] Basophils/100 WBC (Bld) 0.4 % Normal 0.0-2.5 [facility] ([place] Comment on above: Performed By: #### G , CRE #### [address] [address] Eosinophil, Absolute 0.3 10 3/mcL Normal 0.0-0.4 [facility] ([place]) Comment on above: Performed By: #### G FR, CRE #### [address] [address] Eosinophils/100 WBC (Bld) 4.4 % Normal 0.0-7.0 [facility] [place] Comment on above: Performed By: #### G FR, CRE #### [address] [address] Lymphocyte, Absolute 2.2 10 3/mcL Normal 0.8-3.9 [facility] ([place]) Comment on above: Performed By: #### G FR, CRE #### [address] [address] Lymphocytes/100 WBC (Bld) 33.1 % Normal 10.0-50.0 [facility] [place] Comment on above: Performed By: #### Ronna FR, CRE #### [address] [address] Monocyte, Absolute 0.5 10 3/mcL Normal 0.2-1.0 [facility] [place] Comment on above: Performed By: #### Ronna FR, CRE #### [address] [address] Monocytes/100 WBC (Bld) 7.1 % Normal 1.7-13.0 [facility] ([place] Comment on above: Performed By: #### Ronna FR, CRE #### [address] [address] Neutrophils/100 WBC (Bld) 55.0 % Normal 37.0-80.0 [facility] [place] Comment on above: Performed By: #### Ronna FR, CRE #### [address] [address] .GFRon 04-09-2023 GFR 60 ml/min/1.73sqm Normal [facility] ([place] Comment on above: Result Comment: GFR Population [...] mL/min/1.73 square meters Performed By: #### Ronna SNACHES, CRE #### [place] [address] [address] GFR Non- 50 ml/min/1.73sqm Normal [facility] ([place] Comment on above: Result Comment: GFR Population [...] By: #### Ronna SANCHES, CRE #### [place] [address] [address] .NEUABSon 04-09-2023 Neutrophil, Absolute 3.7 10 3/mcL Normal 2.9-6.2 [facility] ([place]) Comment on above: Performed By: #### Ronna SANCHES, CRE #### [place] [address] [address] A1Con 04-09-2023 HbA1c (Bld) [Mass fraction] 5.7 % Normal 4.3-6.4 [facility] [place] Comment on above: Performed By: ###Cachorro SANCHES, CRE #### [place] [address] [address] CBCon 04-09-2023 Erythrocyte distribution width (RBC) [Ratio] 14.2 % Normal 11.5-14.5 [facility] [place] Comment on above: Performed By: ###Cachorro SANCHES, CRE #### [address] [address] Hematocrit (Bld) [Volume fraction] 37.8 % Low 42.0-52.0 [facility] [place] Comment on above: Performed By: #### G FR, CRE #### [address] [address] Hgb 12.4 G/dL Low 14.0-18.0 [facility] ([place] Comment on above: Performed By: #### G , CRE #### [address] [address] MCH (RBC) [Entitic mass] 29.2 pg Normal 27.0-31.2 [facility] [place] Comment on above: Performed By: #### Ronna SANCHES, CRE #### [address] [address] MCHC 32.8 G/dL Normal 31.8-35.4 [facility] ([place] Comment on above: Performed By: #### Ronna SANCHES, CRE #### [address] [address] MCV (RBC) [Entitic vol] 89.0 fL Normal 80.0-94.0 [facility] [place] Comment on above: Performed By: #### Ronna FR, CRE #### [address] [address] Platelet 233 10 3/mcL Normal 130-400 [facility] ([place] Comment on above: Performed By: #### G , CRE #### [address] [address] Platelet mean volume (Bld) [Entitic vol] 8.3 fL Normal 7.4-10.4 [facility] ([place] Comment on above: Performed By: #### Ronna FR, CRE #### [address] [address] RBC 4.25 10 6/mcL Normal 4.04-6.13 [facility] ([place] Comment on above: Performed By: #### Ronna SANCHES, CRE #### [address] [address] WBC 6.7 10 3/mcL Normal 4.6-10.8 [facility] [place] Comment on above: Performed By: #### Ronna SANCHES, CRE #### [address] [address] CMPon 04-09-2023 Albumin Level 3.2 G/dL Low 3.4-4.8 [facility] [place] Comment on above: Performed By: #### Ronna SANCHES, CRE #### [address] [address] Albumin/Globulin [Mass ratio] 0.9 {ratio} Low 1.1-2.5 [facility] [place] Comment on above: Performed By: #### Ronna SANCHES, CRE #### [address] [address] ALP [Catalytic activity/Vol] 124 U/L Normal 40-135 [facility] ([place] Comment on above: Performed By: #### Ronna SANCHES, CRE #### [address] [address] ALT [Catalytic activity/Vol] 17 U/L Normal 16-63 [facility] ([place] Comment on above: Performed By: #### Ronna SANCHES, CRE #### [address] [address] AST [Catalytic activity/Vol] 18 U/L Normal 10-40 [facility] ([place] Comment on above: Performed By: #### Ronna SANCHES, CRE #### [address] [address] Bili Total 0.3 mg/dL Normal 0.2-1.0 [facility] [place] Comment on above: Result Comment: Use of this assay is not recommended for patients undergoing treatment with eltrombopag due to the potential for falsely elevated results. Performed By: #### Ronna SANCHES, CRE #### [address] [address] BUN/Creatinine Ratio 19 ratio Normal 7-27 [facility] [place] Comment on above: Performed By: #### Ronna FR, CRE #### [address] [address] Calcium [Mass/Vol] 8.5 mg/dL Normal 8.4-10.2 [facility] ([place]) Comment on above: Performed By: #### G FR, CRE #### [address] [address] Chloride [Moles/Vol] 104 mmol/L Normal 98-107 [facility] [place] Comment on above: Performed By: #### G FR, CRE #### [address] [address] CO2 [Moles/Vol] 31 mmol/L Normal 23-31 [facility] ([place] Comment on above: Performed By: #### Ronna FR, CRE #### [address] [address] Creatinine [Mass/Vol] 1.36 mg/dL High 0.70-1.30 [facility] ([place]) Comment on above: Performed By: #### Ronna FR, CRE #### [address] [address] Electrolyte Balance 7.0 mEq/L Normal 4.0-15.0 [facility] ([place]) Comment on above: Performed By: #### Ronna FR, CRE #### [address] [address] Globulin 3.7 G/dL Normal [facility] ([place] Comment on above: Performed By: #### Ronna FR, CRE #### [address] [address] Glucose [Mass/Vol] 95 mg/dL Normal 83-110 [facility] ([place]) Comment on above: Performed By: #### G FR, CRE #### [address] [address] Potassium [Moles/Vol] 4.5 mmol/L Normal 3.5-5.1 [facility] ([place]) Comment on above: Performed By: #### G FR, CRE #### [facility] [address] [place], [place] [address] Sodium [Moles/Vol] 142 mmol/L Normal 136-145 [facility] ([place]) Comment on above: Performed By: #### Ronna , CRE #### [place] [id number] [place], [place] [address] Total Protein 6.9 G/dL Normal 6.4-8.2 [facility] ([place] Comment on above: Performed By: #### Ronna SANCHES, CRE #### [place] [address] [place], [place] [address] Urea nitrogen [Mass/Vol] 26 mg/dL High 7-18 [facility] ([place] Comment on above: Performed By: #### Ronna SANCHES, CRE #### [place] [id number] [place], [place] [address] FT4on 04-09-2023 Free T4 [Mass/Vol] 0.97 ng/dL Normal 0.76-1.46 [facility] ([place]) Comment on above: Performed By: #### Ronna , CRE #### [address] [address] LABORATORYOrdered By: SYSTEM SYSTEM on 04-09-2023 25-hydroxyvitamin [...] 04-09-2023 Cholesterol [Mass/Vol] 96 mg/dL Normal 0-200 [facility] ([place] Comment on above: Result Comment: Chol esterol Reference Interval: Less than 200 Desirable 200-239 Borderline high risk 240 and above High risk Performed By: #### A DIFF, ANEU, VIDH, LIPID, TSH, FT4, URIC, FERR, GFR, CMP, CBC #### [address] [address] #### PTH #### [address] [address] Cholesterol in HDL [Mass/Vol] 40 mg/dL Normal 40-60 [facility] ([place] Comment on above: Performed By: #### A DIFF, ANEU, VIDH, LIPID, TSH, FT4, URIC, FERR, GFR, CMP, CBC #### [address] [address] #### PTH #### [address] [address] Cholesterol in LDL [Mass/Vol] 40 mg/dL Normal 0-130 [facility] ([place] Comment on above: Performed By: #### A DIFF, ANEU, VIDH, LIPID, TSH, FT4, URIC, FERR, GFR, CMP, CBC #### [address] [address] #### PTH #### [address] [address] Triglyceride [Mass/Vol] 79 mg/dL Normal 0-150 [facility] ([place] Comment on above: Result Comment: Trig lyceride Reference Interval: Less than 150 Normal 150-199 Borderline high risk 200-499 High risk 500 or higher Very high risk Performed By: #### A DIFF, ANEU, VIDH, LIPID, TSH, FT4, URIC, FERR, GFR, CMP, CBC #### [place] [address] #### PTH #### [address] [address] PTHon 04-09-2023 PTH, Intact 79.7 pg/mL Normal 18.5-88.0 [facility] ([place] Comment on above: Performed By: #### A DIFF, ANEU, VIDH, LIPID, TSH, FT4, URIC, FERR, GFR, CMP, CBC #### [place] [address] #### PTH #### [place] [id number] TSHon 04-09-2023 TSH Qn 1.26 m[IU]/L Normal 0.36-3.74 [facility] ([place] Comment on above: Performed By: #### G FR, CRE #### [place] [id number] URICon 04-09-2023 Uric Acid Lvl 6.0 mg/dL Normal 3.5-7.2 [facility] ([place] Comment on above: Performed By: #### G , CRE #### [address] [address] VIDHon 04-09-2023 Vit. D 25-Hydroxy 72.5 ng/mL Normal [facility] ([place] Comment on above: Result Comment: Inte rpretive Values Based on Total 25(OH) Vitamin D: Deficient <20 ng/mL Insufficient 20 - <30 ng/mL Sufficient 30-100 ng/mL Performed By: #### G , CRE #### [place] [address] LABORATORYOrdered By: Sky Elias on 10-02-2022 Albumin [...] seconds AH Auto Coag SS LABORATORYOrdered By: [employer] [facility] on 04-13-2022 Platelets (Bld) [#/Vol] 245 [...] 27 ratio AO ADM SS LABORATORYOrdered By: [employer] [facility] on 02-02-2022 GFR 60 ml/min/1.73sqm Invalid [...] Invalid Interpretation Code 82 - 115 mg/dL [facility] LABORATORYOrdered By: Isa Lomeli on 09-06-2021 Basophil, [...] Diastolic Blood Pressure Non-Invasive 71 mm[Hg] [facility] CORPORATIONRecombineNPerfect [employer] [facility] [place] [facility] 02-12-2024 13:30-0400 Heart rate 56 /min [facility] [place] [facility] 02-12-2024 13:30-0400 Respiratory rate 14 /min [facility] TILE SHADERPerfect [employer] [facility] [place] [facility] 02-12-2024 13:30-0400 Systolic Blood Pressure Non-Invasive 149 mm[Hg] [facility]ENTERRecombineNPerfect [employer] [facility] [place] [facility] 02-12-2024 13:15-0400 Diastolic Blood Pressure Non-Invasive 72 mm[Hg] [facility]Perfect [employer] [facility] [place] [facility] 02-12-2024 13:15-0400 Heart rate 54 /min BRITTANY BATERS TILE SHADER-[employer] COMPLIANCE AUDITOR [facility] [place] [facility] 02-12-2024 13:15-0400 Respiratory rate 14 /min BRITTANY BATERS TILE SH[employer]ER-[employer] COMPLIANCE AUDITOR [facility] [place] [facility] 02-12-2024 13:15-0400 Systolic Blood Pressure Non-Invasive 166 mm[Hg] BRITTANY BATERS TI[employer] SH[employer] COMPLIANCE AUDITOR [facility] [place] [facility] 02-12-2024 13:01-0400 Diastolic Blood Pressure Non-Invasive 70 mm[Hg] BRITTANY BATERS TI[employer] SH[employer]ER-[employer]IC[employer] COMPLIANCE AUDITOR [facility] [place] [facility] 02-12-2024 13:01-0400 Heart rate 62 /min BRITTANY BATERS TILE SH[employer]ER-[employer] COMPLIANCE AUDITOR [facility] [place] [facility] 02-12-2024 13:01-0400 Respiratory rate 14 /min BRITTANY BATERS TILE SHADER-[employer]IC[employer] COMPLIANCE AUDITOR [facility] [place] [facility] 02-12-2024 13:01-0400 Systolic Blood Pressure Non-Invasive 154 mm[Hg] BRITTANY BATERS TILE SH[employer]ER-[employer]IC[employer] COMPLIANCE AUDITOR [facility] [place] [facility] 02-12-2024 12:52-0400 Heart rate 60 /min BRITTANY BATERS TILE SH[employer]ER-[employer] COMPLIANCE AUDITOR [facility] [place] [facility] 02-12-2024 12:40-0400 Heart rate 61 /min BRITTANY BATERS TILE SH[employer]ER-[employer]IC[employer] COMPLIANCE AUDITOR [facility] [place] [facility] 02-12-2024 12:35-0400 Heart rate 61 /min BRITTANY BATERS TILE SH[employer]ER-[employer]IC[employer] COMPLIANCE AUDITOR [facility] [place] [facility] 02-12-2024 10:04-0400 Blood Pressure Location BRITTANY BATERS TILE [employer] COMPLIANCE AUDITOR [facility] [place] [facility] 02-12-2024 10:04-0400 Blood Pressure Method BRITTANY BATERS TILE SHADER-[employer] [facility] [place] [facility] 02-12-2024 10:04-0400 Body temperature 97.7 [degF] BRITTANY BATERS TI[employer] SH[employer] COMPLIANCE AUDITOR [facility] [place] [facility] 02-11-2024 15:05-0400 Body height 175.3 cm BRITTANY BATERS TILE SH[employer]ER-[employer]IC[employer] COMPLIANCE AUDITOR [facility] [place] [facility] 02-11-2024 15:05-0400 Body weight 82.2 kg BRITTANY BATERS TI[employer] SH[employer]IC[employer] COMPLIANCE AUDITOR [facility] [place] [facility] 02-11-2024 15:05-0400 Body weight 26.75 kg/m2 BRITTANY BATERS TI[employer] COMPLIANCE AUDITOR [facility] [place] [facility] 04-13-2022 15:03-0400 Diastolic blood pressure 66 mm[Hg] BRITTANY BATERS TILE SHADER-[employer]IC[employer] COMPLIANCE AUDITOR [facility] [place] [facility] 04-13-2022 15:03-0400 Heart rate 60 /min BRITTANY BATERS TILE SH[employer]IC[employer] COMPLIANCE AUDITOR [facility] [place] [facility] 04-13-2022 15:03-0400 Mean blood pressure 87 mm[Hg] BRITTANY BATERS TILE SH[employer]ER-[employer]IC[employer] COMPLIANCE AUDITOR [facility] [place] [facility] 04-13-2022 15:03-0400 Respiratory rate 14 /min BRITTANY BATERS TILE SH[employer]IC[employer] COMPLIANCE AUDITOR [facility] [place] [facility] 04-13-2022 15:03-0400 Systolic blood pressure 129 mm[Hg] BRITTANY BATERS TILE SHADER-[employer]IC[employer] COMPLIANCE AUDITOR [facility] [place] [facility] 04-13-2022 14:50-0400 Diastolic blood pressure 63 mm[Hg] BRITTANY BATERS TILE SHADER-MEDIC[employer] COMPLIANCE AUDITOR [facility] [place] [facility] 04-13-2022 14:50-0400 Heart rate 58 /min BRITTANY BATERS TILE SH[employer]ER-[employer]IC[employer] COMPLIANCE AUDITOR [facility] [place] [facility] 04-13-2022 14:50-0400 Mean blood pressure 83 mm[Hg] BRITTANY BATERS TILE SHADER-[employer]IC[employer] COMPLIANCE AUDITOR [facility] [place] [facility] 04-13-2022 14:50-0400 Respiratory rate 14 /min BRITTANY BATERS TILE SH[employer]IC[employer] COMPLIANCE AUDITOR [facility] [place] [facility] 04-13-2022 14:50-0400 Systolic blood pressure 122 mm[Hg] BRITTANY BATERS TILE SHADER-[employer]IC[employer] COMPLIANCE AUDITOR [facility] [place] [facility] 04-13-2022 14:35-0400 Diastolic blood pressure 64 mm[Hg] BRITTANY BATERS TILE SHADER-MEDICARE COMPLIANCE AUDITOR [facility] [place] [facility] 04-13-2022 14:35-0400 Heart rate 63 /min BRITTANY BATERS TILE SH[employer]ER-[employer]IC[employer] COMPLIANCE AUDITOR [facility] [place] [facility] 04-13-2022 14:35-0400 Mean blood pressure 83 mm[Hg] BRITTANY BATERS TILE SHADER-MEDICARE COMPLIANCE AUDITOR [facility] [place] [facility] 04-13-2022 14:35-0400 Respiratory rate 14 /min BRITTANY BATERS TILE SH[employer]ER-[employer]IC[employer] COMPLIANCE AUDITOR [facility] [place] [facility] 04-13-2022 14:35-0400 Systolic blood pressure 121 mm[Hg] BRITTANY BATERS TILE SHADER-[employer]ICARE COMPLIANCE AUDITOR [facility] [place] [facility] 04-13-2022 12:02-0400 Body temperature 97.88 [degF] BRITTANY BATERS TILE SH[employer]ER-[employer]ICARE COMPLIANCE AUDITOR [facility] [place] [facility] 04-13-2022 12:02-0400 diastolic 62 mm[Hg] BRITTANY BATERS TILE SHADER-[employer]ICARE COMPLIANCE AUDITOR [facility] [place] [facility] 04-13-2022 12:02-0400 Heart rate 80 /min BRITTANY BATERS TILE SH[employer]IC[employer] COMPLIANCE AUDITOR [facility] [place] [facility] 04-13-2022 12:02-0400 systolic 148 mm[Hg] BRITTANY BATERS TILE SHADER-MEDICARE COMPLIANCE AUDITOR [facility] 04-12-2022 15:22-0400 Body height 175.3 cm BRITTANY BATERS TILE SHADER-MEDICARE COMPLIANCE AUDITOR [facility] 04-12-2022 15:22-0400 Body weight 77 kg BRITTANY RODRIGUEZ TILE SHADER-MEDICARE COMPLIANCE AUDITOR [facility] 04-12-2022 15:22-0400 Body weight 25.06 kg/m2 BRITTANY RODRIGUEZ TILE SHADER-MEDICARE COMPLIANCE AUDITOR [facility] 02-02-2022 07:46-0400 Body temperature 97.7 [degF] SP CARDENAS TILE SHADER-MEDICARE COMPLIANCE AUDITOR [facility] 02-02-2022 07:46-0400 Diastolic blood pressure 69 mm[Hg] SP CARDENAS TILE SHADER-MEDICARE COMPLIANCE AUDITOR [facility] 02-02-2022 07:46-0400 Heart rate 69 /min SP CARDENAS TILE SHADER-MEDICARE COMPLIANCE AUDITOR [facility] 02-02-2022 07:46-0400 Reason For Taking VItal Signs SP CARDENAS TILE SHADER-MEDICARE COMPLIANCE AUDITOR [facility] 02-02-2022 07:46-0400 Respiratory rate 18 /min SP CARDENAS TILE SHADER-MEDICARE COMPLIANCE AUDITOR [facility] 02-02-2022 07:46-0400 Systolic blood pressure 117 mm[Hg] SP CARDENAS TILE SHADER-MEDICARE COMPLIANCE AUDITOR [facility] 02-02-2022 04:20-0400 Body temperature 98.24 [degF] SP CARDENAS TILE SHADER-MEDICARE COMPLIANCE AUDITOR [facility] 02-02-2022 04:20-0400 Diastolic blood pressure 67 mm[Hg] SP CARDENAS TILE SHADER-MEDICARE COMPLIANCE AUDITOR [facility] 02-02-2022 04:20-0400 Heart rate 71 /min SP MARTINESCONSUELOBAIRON TILE SHADER-MEDICARE COMPLIANCE AUDITOR [facility] 02-02-2022 04:20-0400 Reason For Taking VItal Signs SP CARDENAS TILE SHADER-MEDICARE COMPLIANCE AUDITOR [facility] 02-02-2022 04:20-0400 Respiratory rate 18 /min SP CARDENAS TILE SHADER-MEDICARE COMPLIANCE AUDITOR [facility] 02-02-2022 04:20-0400 Systolic blood pressure 143 mm[Hg] SP CARDENAS TILE SHADER-MEDICARE COMPLIANCE AUDITOR [facility] 02-01-2022 19:01-0400 Body temperature 98.24 [degF] SP CARDENAS TILE SHADER-MEDICARE COMPLIANCE AUDITOR [facility] 02-01-2022 19:01-0400 Diastolic blood pressure 65 mm[Hg] SP CARDENAS TILE SHADER-MEDICARE COMPLIANCE AUDITOR [facility] 02-01-2022 19:01-0400 Heart rate 77 /min SP CARDENAS TILE SHADER-MEDICARE COMPLIANCE AUDITOR [facility] 02-01-2022 19:01-0400 Mean blood pressure 91 mm[Hg] SP CARDENAS TILE SHADER-MEDICARE COMPLIANCE AUDITOR [facility] 02-01-2022 19:01-0400 Reason For Taking VItal Signs SP MARTINESCONSUELOBAIRON TILE SHADER-MEDICARE COMPLIANCE AUDITOR [facility] 02-01-2022 19:01-0400 Respiratory rate 18 /min SP MARTINESCONSUELOBAIRON TILE SHADER-MEDICARE COMPLIANCE AUDITOR [facility] 02-01-2022 19:01-0400 Systolic blood pressure 143 mm[Hg] SP BOBBICONSUELOBAIRON TILE SHADER-MEDICARE COMPLIANCE AUDITOR [facility] 01-31-2022 16:08-0400 Mean blood pressure 84 mm[Hg] SP BOBBICONSUELOBAIRON TILE SHADER-MEDICARE COMPLIANCE AUDITOR [facility] 01-31-2022 07:10-0400 Heart rate 69 /min SP BOBBICONSUELOBAIRON TILE SHADER-MEDICARE COMPLIANCE AUDITOR [facility] 01-30-2022 14:39-0400 Mean blood pressure 85 mm[Hg] SP BOBBICONSUELOBAIRON TILE SHADER-MEDICARE COMPLIANCE AUDITOR [facility] 01-29-2022 12:35-0400 Heart rate 75 /min SP GATESBAIRON TILE SHADER-MEDICARE COMPLIANCE AUDITOR [facility] 01-29-2022 11:32-0400 Body height 175.3 cm SP GATESBAIRON TILE SHADER-MEDICARE COMPLIANCE AUDITOR [facility] 01-29-2022 11:32-0400 Body weight 84.1 kg SP GATESBAIRON TILE SHADER-MEDICARE COMPLIANCE AUDITOR [facility] 01-29-2022 11:32-0400 Body weight 27.37 kg/m2 SP MARTINESULÍS TILE SHADER-MEDICARE COMPLIANCE AUDITOR [facility] 01-29-2022 07:22-0400 Body height 175.3 cm SP CARDENAS TILE SHADER-MEDICARE COMPLIANCE AUDITOR [facility] 01-29-2022 07:22-0400 Body weight 84.1 kg SP RONALD TILE SHADER-MEDICARE COMPLIANCE AUDITOR [facility] 01-29-2022 07:22-0400 Heart rate 93 /min SP CARDENAS TILE SHADER-MEDICARE COMPLIANCE AUDITOR [facility] 12-28-2021 11:30-0400 Body temperature 99.86 [degF] BALBIR STOVALL MD [facility] 12-28-2021 11:30-0400 Diastolic blood pressure 59 mm[Hg] BALBIR STOVALL MD [facility] 12-28-2021 11:30-0400 Heart rate 75 /min BALBIR STOVALL MD [facility] 12-28-2021 11:30-0400 Mean blood pressure 75 mm[Hg] BALBIR STOVALL MD [facility] 12-28-2021 11:30-0400 Reason For Taking VItal Signs BALBIR STOVALL MD [facility] 12-28-2021 11:30-0400 Respiratory rate 16 /min BALBIR STOVALL MD [facility] 12-28-2021 11:30-0400 Systolic blood pressure 108 mm[Hg] BALBIR STOVALL MD [facility] 12-18-2021 10:20-0400 Diastolic Blood Pressure NBP [address] MELL MERCADO MD [facility] 12-18-2021 10:20-0400 Heart rate 62 /min DR MELL MERCADO MD [facility] 12-18-2021 10:20-0400 Respiratory rate 15 /min DR MELL MERCADO MD [facility] 12-18-2021 10:20-0400 Systolic Blood Pressure NBP [address] MELL MERCADO MD [facility] 12-18-2021 10:15-0400 Diastolic Blood Pressure NBP [address] MELL MERCADO MD [facility] 12-18-2021 10:15-0400 Heart rate 74 /min DR MELL MERCADO MD [facility] 12-18-2021 10:15-0400 Respiratory rate 16 /min DR MELL MERCADO MD [facility] 12-18-2021 10:15-0400 Systolic Blood Pressure NBP [address] MELL MERCADO MD [facility] 12-18-2021 10:10-0400 Diastolic Blood Pressure NBP [address] MELL MERCADO MD [facility] 12-18-2021 10:10-0400 Heart rate 59 /min DR MELL MERCADO MD [facility] 12-18-2021 10:10-0400 Respiratory rate 13 /min DR MELL MERCADO MD [facility] 12-18-2021 10:10-0400 Systolic Blood Pressure NBP [address] MELL MERCADO MD [facility] 12-18-2021 10:01-0400 Body temperature 96.98 [degF] DR MELL MERCADO MD [facility] 12-18-2021 08:19-0400 Body height 175.[address] MELL MERCADO MD [facility] 12-18-2021 08:19-0400 Body weight 81.[address] MELL MERCADO MD [facility] 12-18-2021 08:19-0400 Body weight 26.62 kg/m2 DR MELL MERCADO MD [facility] 12-18-2021 08:09-0400 Body temperature 97.34 [degF] DR MELL MERCADO MD [facility] 12-18-2021 08:09-0400 Heart rate 75 /min DR MELL MERCADO MD [facility] 11-21-2021 15:14-0400 Diastolic blood pressure 66 mm[Hg] CHRISTIANO ROGERS MD [facility] 11-21-2021 15:14-0400 Heart rate 62 /min CHRISTIANO ROGERS MD [facility] 11-21-2021 15:14-0400 Reason For Taking VItal Signs CHRISTIANO ROGERS MD [facility] 11-21-2021 15:14-0400 Respiratory rate 16 /min CHRISTIANO ROGERS MD [facility] 11-21-2021 15:14-0400 Systolic blood pressure 128 mm[Hg] CHRISTIANO ROGERS MD [facility] 11-21-2021 13:50-0400 Diastolic blood pressure 58 mm[Hg] CHRISTIANO ROGERS MD [facility] 11-21-2021 13:50-0400 Heart rate 64 /min CHRISTIANO ROGERS MD [facility] 11-21-2021 13:50-0400 Reason For Taking VItal Signs CHRISTIANO ROGERS MD [facility] 11-21-2021 13:50-0400 Respiratory rate 16 /min CHRISTIANO ROGERS MD [facility] 11-21-2021 13:50-0400 Systolic blood pressure 134 mm[Hg] CHRISTIANO ROGERS MD [facility] 11-21-2021 12:32-0400 Diastolic blood pressure 61 mm[Hg] CHRISTIANO ROGERS MD [facility] 11-21-2021 12:32-0400 Heart rate 60 /min CHRISTIANO ROGERS MD [facility] 11-21-2021 12:32-0400 Reason For Taking VItal Signs CHRISTIANO ROGERS MD [facility] 11-21-2021 12:32-0400 Respiratory rate 16 /min CHRISTIANO ROGERS MD [facility] 11-21-2021 12:32-0400 Systolic blood pressure 127 mm[Hg] CHRISTIANO ROGERS MD [facility] 11-21-2021 10:04-0400 Body height 175.3 cm CHRISTIANO ROGERS MD [facility] 11-21-2021 10:04-0400 Body temperature 97.88 [degF] CHRISTIANO ROGERS MD [facility] 11-21-2021 10:04-0400 Body weight 81.8 kg CHRISTIANO ROGERS MD [facility] 09-08-2021 12:04-0500 Body temperature 97.7 [degF] MOHINIRYLAND GUAN TILE SHADER-MEDICARE COMPLIANCE AUDITOR [facility] 09-08-2021 12:04-0500 Diastolic blood pressure 65 mm[Hg] MOHINI HUMZAN TILE SHADER-MEDICARE COMPLIANCE AUDITOR [facility] 09-08-2021 12:04-0500 Heart rate 86 /min MOHINI CHINGN TILE SHADER-MEDICARE COMPLIANCE AUDITOR [facility] 09-08-2021 12:04-0500 Reason For Taking VItal Signs MOHINIRYLAND GUAN TILE SHADER-MEDICARE COMPLIANCE AUDITOR [facility] 09-08-2021 12:04-0500 Respiratory rate 18 /min MOHINI ALONZOVINNY TILE SHADER-MEDICARE COMPLIANCE AUDITOR [facility] 09-08-2021 12:04-0500 Systolic blood pressure 132 mm[Hg] MOHINIRYLAND CHINGN TILE SHADER-MEDICARE COMPLIANCE AUDITOR [facility] 09-08-2021 07:44-0500 Body temperature 98.06 [degF] MOHINIRYLAND CHINGN TILE SHADER-MEDICARE COMPLIANCE AUDITOR [facility] 09-08-2021 07:44-0500 Diastolic blood pressure 63 mm[Hg] MOHINIRYLAND CHINGN TILE SHADER-MEDICARE COMPLIANCE AUDITOR [facility] 09-08-2021 07:44-0500 Heart rate 63 /min MOHINI CHINGFranck TILE SHADER-MEDICARE COMPLIANCE AUDITOR [facility] 09-08-2021 07:44-0500 Reason For Taking VItal Signs MOHINIRYLAND ROSADOVINNY BERGMANN-MEDICARE COMPLIANCE AUDITOR [facility] 09-08-2021 07:44-0500 Respiratory rate 18 /min MOHINIRYLAND ROSADOVINNY BERGMANN-MEDICARE COMPLIANCE AUDITOR [facility] 09-08-2021 07:44-0500 Systolic blood pressure 125 mm[Hg] MOHINIRYLAND ROSADOVINNY TILE SHADER-MEDICARE COMPLIANCE AUDITOR [facility] 09-08-2021 03:31-0500 Body temperature 98.06 [degF] MOHINI ROSADOVINNY TILE SHADER-MEDICARE COMPLIANCE AUDITOR [facility] 09-08-2021 03:31-0500 Diastolic blood pressure 65 mm[Hg] MOHINIRYLAND ROSADOVINNY TILE SHADER-MEDICARE COMPLIANCE AUDITOR [facility] 09-08-2021 03:31-0500 Heart rate 68 /min MOHINI ROSADOVINNY TILE SHADER-MEDICARE COMPLIANCE AUDITOR [facility] 09-08-2021 03:31-0500 Mean blood pressure 83 mm[Hg] MOHINI ROSADOVINNY TILE SHADER-MEDICARE COMPLIANCE AUDITOR [facility] 09-08-2021 03:31-0500 Reason For Taking VItal Signs MOHINI GUAN TILE SHADER-MEDICARE COMPLIANCE AUDITOR [facility] 09-08-2021 03:31-0500 Respiratory rate 20 /min MOHINI GUAN TILE SHADER-MEDICARE COMPLIANCE AUDITOR [facility] 09-08-2021 03:31-0500 Systolic blood pressure 120 mm[Hg] MOHINI GUAN TILE SHADER-MEDICARE COMPLIANCE AUDITOR [facility] 09-08-2021 00:03-0500 Heart rate 73 /min MOHINI GUAN TILE SHADER-MEDICARE COMPLIANCE AUDITOR [facility] 09-07-2021 19:30-0500 Mean blood pressure 89 mm[Hg] MOHINI GUAN TILE SHADER-MEDICARE COMPLIANCE AUDITOR [facility] 09-06-2021 23:25-0500 Heart rate 70 /min MOHINI GUAN TILE SHADER-MEDICARE COMPLIANCE AUDITOR [facility] 09-06-2021 23:25-0500 Mean blood pressure 89 mm[Hg] MOHINI GUAN TILE SHADER-MEDICARE COMPLIANCE AUDITOR [facility] 09-06-2021 18:59-0500 Heart rate 73 /min MOHINI GUAN TILE SHADER-MEDICARE COMPLIANCE AUDITOR [facility] 09-05-2021 10:05-0500 Body height 175.3 cm MOHINI GUAN TILE SHADER-MEDICARE COMPLIANCE AUDITOR [facility] 09-05-2021 10:05-0500 Body weight 84.1 kg MOHINIRYLAND ROSADOVINNY TILE SHADER-MEDICARE COMPLIANCE AUDITOR [facility] 09-05-2021 10:05-0500 Body weight 27.37 kg/m2 MOHINIRYLAND ROSADOVINNY BERGMANN-MEDICARE COMPLIANCE AUDITOR [facility] 07-21-2021 17:51-0500 Diastolic blood pressure 66 mm[Hg] TRELL DELGADO MD [facility] 07-21-2021 17:51-0500 Heart rate 66 /min TRELL DELGADO MD [facility] 07-21-2021 17:51-0500 Respiratory rate 18 /min TRELL DELGADO MD [facility] 07-21-2021 17:51-0500 Systolic blood pressure 124 mm[Hg] TRELL DELGADO MD [facility] 07-21-2021 17:05-0500 Diastolic blood pressure 80 mm[Hg] TRELL DELGADO MD [facility] 07-21-2021 17:05-0500 Heart rate 67 /min TRELL DELGADO MD [facility] 07-21-2021 17:05-0500 Respiratory rate 16 /min TRELL DELGADO MD [facility] 07-21-2021 17:05-0500 Systolic blood pressure 122 mm[Hg] TRELL DELGADO MD [facility] 07-21-2021 16:11-0500 Diastolic blood pressure 61 mm[Hg] TRELL DELGADO MD [facility] 07-21-2021 16:11-0500 Heart rate 62 /min TRELL DELGADO MD [facility] 07-21-2021 16:11-0500 Respiratory rate 14 /min TRELL DELGADO MD [facility] 07-21-2021 16:11-0500 Systolic blood pressure 121 mm[Hg] TRELL DELGADO MD [facility] 07-21-2021 15:31-0500 Heart rate 63 /min TRELL DELGADO MD [facility] 07-21-2021 13:27-0500 Body height 175 cm TRELL DELGADO MD [facility] 07-21-2021 13:27-0500 Body temperature 97.88 [degF] TRELL DELGADO MD [facility] 07-21-2021 13:27-0500 Body weight 84 kg TRELL DELGADO MD [facility] 07-21-2021 13:27-0500 diastolic 48 mm[Hg] TRELL DELGADO MD [facility] 07-21-2021 13:27-0500 Heart rate 45 /min TRELL DELGADO MD [facility] 07-21-2021 13:27-0500 systolic 138 mm[Hg] TRELL DELGADO MD [facility] Encounters Encounter Date Encounter Type Care Provider Facility Start: 06-22-2025 ambulatory Sp Anna Facility :[facility] Start: 06-18-2025 ambulatory Merly Pedroza Fac ility:[facility] Start: 06-17-2025 End: 06-17-2025 ambulatory Sp Toshia Facility:[facility] Start: 06-08-2025 End: 06-08-2025 ambulatory Sp Pope Facility:[facility] Start: 06-03-2025 ambulatory DELBERT CHAKRABORTY MD Facili ty:[facility] Start: 05-18-2025 End: 05-18-2025 ambulatory SP HALKO DO Facility:[facility] Start: 05-18-2025 End: 05-18-2025 Patient encounter procedure SP HALKO DO [facility] Start: 05-17-2025 End: 05-17-2025 ambulatory SP NORRISKO DO Facility:[facility] Start: 05-17-2025 End: 05-17-2025 Patient encounter procedure SP HALKO DO [facility] Start: 04-19-2025 End: 04-19-2025 ambulatory SP HALKO DO Facility:[facility] Start: 04-19-2025 End: 04-19-2025 Patient encounter procedure SP HALKO DO [facility] Start: 03-23-2025 ambulatory SP HALKO DO Facili ty:[facility] Start: 02-19-2025 End: 02-19-2025 ambulatory SP PISANOKO DO Facility:[facility] Start: 02-19-2025 End: 02-19-2025 Patient encounter procedure SP PISANOKO DO [facility] Start: 02-18-2025 End: 02-18-2025 ambulatory RAJ ANSARI Facility:[facility] Start: 02-18-2025 End: 02-18-2025 Patient encounter procedure RANDY CAMACHO TILE SHADER-MEDICARE COMPLIANCE AUDITOR [facility] Start: 01-07-2025 End: 01-07-2025 ambulatory SP PISANOKO DO Facility:[facility] Start: 01-07-2025 End: 01-07-2025 Patient encounter procedure SP PISANOKO [facility] Start: 09-15-2024 End: 09-19-2024 ambulatory SP PISANOKO DO Facility:[facility] Start: 09-15-2024 End: 09-19-2024 Encounter for general adult medical examination without abnormal findings DINAH CHAMBERS DO Facility:[facility] Start: 09-15-2024 End: 09-19-2024 Outreach Lab DINAH CHAMBERS DO [facility] Start: 09-15-2024 End: 09-15-2024 ambulatory SP PISANOKO DO Facility:[facility] Start: 09-15-2024 End: 09-15-2024 Patient encounter procedure DINAH CHAMBERS DO [facility] Start: 08-24-2024 End: 08-28-2024 ambulatory SP PISANOKO DO Facility:[facility] Start: 08-24-2024 End: 08-28-2024 Outreach Lab DINAH CHAMBERS DO [facility] Start: 04-29-2024 End: 04-29-2024 Patient encounter procedure SP HALKO DO [facility] Start: 02-25-2024 ambulatory RANDY CAMACHO TILE SHADER-MEDICARE COMPLIANCE AUDITOR Facility:[facility] Start: 02-12-2024 End: 02-12-2024 ambulatory BRITTANY RODRIGUEZ TILE SHADER-MEDICARE COMPLIANCE AUDITOR Facility:[facility] Start: 02-12-2024 End: 02-12-2024 Patient encounter procedure BRITTANY RODRIGUEZ TILE SHADER-MEDICARE COMPLIANCE AUDITOR [facility] Start: 01-01-2024 End: 01-01-2024 ambulatory SP HALKO DO Facility:[facility] Start: 01-01-2024 End: 01-01-2024 Patient encounter procedure SP HALKO DO [facility] Start: 12-02-2023 End: 12-02-2023 Preprocedural examination done ESTUARDO DUNBAR MD [facility] Start: 12-02-2023 End: 12-02-2023 ambulatory ESTUARDO DUNBAR Facility:[facility] Start: 12-02-2023 End: 12-02-2023 Patient encounter procedure RANDY CAMACHO TILE SHADER-MEDICARE COMPLIANCE AUDITOR [facility] Start: 10-22-2023 End: 10-22-2023 ambulatory SP NORRISKO DO Facility:[facility] Start: 10-22-2023 End: 10-22-2023 Patient encounter procedure SP HALKO DO [facility] Start: 10-15-2023 End: 10-15-2023 ambulatory SP HALKO DO Facility:[facility] Start: 10-15-2023 End: 10-15-2023 Patient encounter procedure SP HALKO DO [facility] Start: 10-14-2023 End: 10-14-2023 ambulatory SP PISANOKO Facility:[facility] Start: 10-14-2023 End: 10-14-2023 Patient encounter procedure SP HALKO DO [facility] Start: 10-02-2023 End: 10-02-2023 ambulatory SP POPE DO Facility:[facility] Start: 10-02-2023 End: 10-02-2023 Patient encounter procedure SP PISANOKO DO [facility] Start: 04-29-2023 End: 04-29-2023 ambulatory RANDY MARCIALSly CAMACHO TILE SHADER-MEDICARE COMPLIANCE AUDITOR Facility:[facility] Start: 04-29-2023 End: 04-29-2023 Patient encounter procedure RANDY MARCIAL JANICE TILE SHADER-MEDICARE COMPLIANCE AUDITOR [facility] Start: 04-09-2023 End: 04-09-2023 ambulatory SP POPE DO Facility:[facility] Start: 04-09-2023 End: 04-09-2023 Patient encounter procedure SP PISANOKO DO [facility] Start: 10-02-2022 End: 10-06-2022 Outreach Lab SP POPE DO [facility] Start: 04-13-2022 End: 04-13-2022 Patient encounter procedure BRITTANY RODRIGUEZ TILE SHADER-MEDICARE COMPLIANCE AUDITOR [facility] Start: 03-29-2022 End: 03-29-2022 Patient encounter procedure DELBERT CHAKRABORTY MD [facility] Start: 02-22-2022 End: 02-22-2022 Patient encounter procedure RANDY CAMACHO TILE SHADER-MEDICARE COMPLIANCE AUDITOR [facility] Start: 01-29-2022 End: 02-02-2022 Evaluation and management of inpatient SP RONALD TILE SHADER-MEDICARE COMPLIANCE AUDITOR [facility] Start: 12-28-2021 End: 12-28-2021 SAME DAY STAY BALBIR STOVALL MD [facility] Start: 12-18-2021 End: 12-18-[address] MELL MERCADO MD [facility] Start: 12-12-2021 End: 12-12-2021 Patient encounter procedure BALBIR STOVALL MD [facility] Start: 11-21-2021 End: 11-21-2021 Emergency department patient visit CHRISTIANO ROGERS MD [facility] Start: 11-01-2021 End: 11-01-2021 Patient encounter procedure BALBIR STOVALL MD [facility] Start: 09-05-2021 End: 09-08-2021 Evaluation and management of inpatient MOHINI ROSADOVINNY TILE SHADER-MEDICARE COMPLIANCE AUDITOR [facility] Start: 08-01-2021 End: 08-01-2021 Patient encounter procedure SP POPE DO [facility] Start: 07-21-2021 End: 07-21-2021 Emergency department patient visit TRELL DELGADO MD [facility] Start: 06-22-2021 End: 06-22-2021 Patient encounter procedure SP POPE DO [facility] Start: 06-02-2021 End: 06-02-2021 Patient encounter procedure SP POPE DO [facility] Procedures Date Procedure Procedure Detail Performing Clinician Start: 02-12-2024 Biopsy SP POPE DO Start: 11-11-2023 Nasal structure (body structure) SP POPE DO Start: 10-22-2023 Echocardiography RANDY JANICE [employer] Start: 10-15-2023 Cardiovascular stress testing RANDY CAMACHO [employer] Start: 09-12-2019 Cholecystectomy SP POPE DO Start: 08-12-2004 Transurethral prostatectomy SP JC Enedina DO History of cholecystectomy S/P c holecystectomy( Confirmed ) SP POPE DO Intestinal obstructi on (disorder) BRITTANY RODRIGUEZ TILE SHADER-[employer] Immunizations Immunization Date Immunization Notes Care Provider Fa louann 11-23-2024 RSV vaccine preF3, recombinant SP POPE DO [facility] 07-28-2024 influenza, high dose seasonal, preservative-free; Translations: [Fluad PF Prefilled Syringe ] DINAH CHAMBERS [facility] 06-01-2024 SARS-CoV-2 (COVID-19 ) [id number] DINAH CHAMBERS [facility] 05-14-2023 influenza virus vaccine, unspecified formulation SP POPE DO [facility] 05-14-2023 [id number](tozinam era n [id number])bi vac SP POPE DO [facility] 10-02-2022 COVID-19, mRNA, LNP- S, bivalent, PF, 50 mcg/0.5 mL dose; Translations: [Moderna COVID-19 Bivalent Booster Vaccine PF] SP POPE DO [facility] 10-02-2022 SARS-CoV-2 (CV19)mRNA-[id number] bivalent vac; Translations: [Moderna COVID-19 Bivalent Booster Vaccine PF] SP POPE DO [facility] 06-12-2022 influenza, high dose seasonal, preservative-free SP POPE DO [facility] 12-12-2021 COVID-19, mRNA, LNP- S, PF, 100 mcg or 50 mcg dose; Translations: [Moderna COVID-19 Vaccine] BALBIR STOVALL MD [facility] 06-27-2021 COVID-19, mRNA, LNP- S, PF, 100 mcg/ 0.5 mL dose; Translations: [Moderna COVID-19 Vaccine] TRELL DELGADO MD [facility] 05-12-2021 influenza virus vaccine, unspecified formulation MOHINI LIM [facility] 03-01-2021 pneumococcal polysaccharide vaccine, 23 valent; Translations: [Pneumovax 23] SP TOSHIA DO [facility] 10-03-2020 COVID-19, mRNA, LNP- S, PF, 100 mcg/ 0.5 mL dose; Translations: [Moderna COVID-19 Vaccine] SP POPE [facility] 09-05-2020 SARS-CoV-2 (COVID-19 ) [id number] vaccine SP POPE [facility] 05-26-2020 tetanus and diphther ia toxoids, adsorbed, preservative free, for adult use (5 Lf of tetanus toxoid and 2 Lf of diphtheria toxoid); Translations: [Tenivac] SP POPE [facility] 04-22-2020 pneumococcal conjuga te vaccine, 13 valent SP POPE DO [facility] 07-28-2019 influenza virus vaccine, unspecified formulation SP POPE [facility] 01-27-2019 pneumococcal conjuga te vaccine, 13 valent SP POPE DO [facility] 05-01-2018 influenza virus vaccine, unspecified formulation SP POPE DO [facility] 06-07-2017 influenza virus vaccine, unspecified formulation SP POPE DO [facility] 08-18-2015 influenza virus vaccine, unspecified formulation SP POPE DO [facility] 08-18-2015 zoster vaccine, live SP POPE DO [facility] 05-05-2010 hepatitis A vaccine, adult dosage SP POPE DO [facility] 05-05-2010 yellow fever vaccine SP POPE DO [facility] Payers Date Payer Category Payer Self-pay [id number] 2023 Medicare [id number] 2023 Unknown [id number] 2022 Medicare [id number] 2018 Private Health Insurance [facility] [id number] 2018 Unknown [id number] 1936 Unknown [id number] 2.16.8 40.1.245883.3.579.2.627 1935 Unknown [id number] 2.16.8 40.1.076774.3.579.2.627 1935 Unknown [id number] 2.16.8 40.1.536402.3.579.2.627 1936 Unknown [id number] 2.16.8 40.1.454963.3.579.2.627 1936 Unknown [id number] 2.16.8 40.1.059942.3.579.2.627 1936 Unknown [id number] 2.16.8 40.1.634592.3.579.2.627 1936 Unknown [id number] 2.16.8 40.1.650274.3.579.2.627 1936 Unknown [id number] 2.16.8 40.1.391966.3.579.2. 1936 Unknown [id number] 2.16.8 40.1.416265.3.579.2. 1936 Unknown [id number] 2.16.8 40.1.171748.3.579.2. 1936 Unknown [id number] 2.16.8 40.1.461949.3.579.2. 1936 Unknown [id number] 2.16.8 40.1.615752.3.579.2. 1936 Unknown [id number] 2.16. 840.1.207422.3.579.2 1936 Unknown [id number] 2.16. 840.1.213582.3.579.2. 1936 Unknown [id number] 2.16. 840.1.428664.3.579.2. 1936 Unknown [id number] 2.16. 840.1.662624.3.579.2. 1936 Unknown [id number] 2.16. 840.1.188783.3.579.2. 1936 Unknown [id number] 2.16. 840.1.337501.3.579.2. 1936 Unknown [id number] 2.16.8 40.1.282578.3.579.2. 1936 Unknown [id number] 2.16.8 40.1.222526.3.579.2.7 1936 Unknown [id number] 2.16.8 40.1.025058.3.579.2. 1936 Unknown [id number] 2.16.8 40.1.237670.3.579.2.627 1936 Unknown [id number] 2.16. 840.1.429896.3.579.2.627 1935 Unknown [id number] 2.16. 840.1.417895.3.579.2.627 Unknown [id number] 2.16.8 40.1.201776.3.579.2.462 Unknown [id number] 2.16.8 40.1.503564.3.579.2.462 Unknown [id number] 2.16.8 40.1.145274.3.579.2.462 Unknown [id number] 2.16.8 40.1.900615.3.579.2.462 Social History Date Type Detail Facility Start: 09-30-2019 End: 04-20-2025 Never smoked tobacco (finding) [facility] Sex Assigned At Male [facility] Sexual Orientation [facility] Start: 02-04-2019 Sex Male (finding) [facility] Functional Status Date Assessment Result Facility 02-12-2024 Functional Status Assistive Rosana ce None, Wheelchair [facility] 02-12-2024 Functional Status Standard Safet y ID band on, Allergy Band on, Safety level maintained [facility] 02-12-2024 Functional Status [facility] 02-11-2024 Functional Status Sensory Deficits None A [facility] 04-13-2022 Functional Status Independent [facility] 04-13-2022 Functional Status Standard Safet y ID band on, Allergy Band on [facility] 04-13-2022 Functional Status [facility] 04-12-2022 Functional Status Sensory Deficits None A [facility] 02-02-2022 Functional Status Room check performed [facility] 02-02-2022 Functional Status Mechelle leahy [facility] 02-02-2022 Functional Status [facility]01-2022 Functional Status Dinner Percent 100 [facility] 02-01-2022 Functional Status Demonstrates C orrect Call Light Use Yes [facility] 02-01-2022 Functional Status Lunch Percent 100 [facility] 02-01-2022 Functional Status Done Mechelle leahy [facility] 02-01-2022 Functional Status Mechelle leahy [facility] 01-31-2022 Functional Status 15 Mechelle leahy [facility] 01-30-2022 Functional Status Ambulation in [facility] 01-30-2022 Functional Status Mechelle leahy [facility] 01-30-2022 Functional Status Mechelle leahy [facility] 01-30-2022 Functional Status Mechelle leahy [facility] 01-29-2022 Functional Status 1st floor bedr oom, 1st floor bathroom [facility] 01-29-2022 Functional Status Sensory Deficits None A [facility] 12-18-2021 Functional Status Mechelle Valdez [facility] 12-18-2021 Functional Status M[facility]helle Valdez [facility] 11-21-2021 Functional Status Mechelle Ramirez 11-21-2021 Functional Status Mechelle Valdez [facility] 11-21-2021 Functional Status Mechelle Ramirez Mental Status Date Assessment Result Facility 02-12-2024 Mental Status Oriented x 4 [facility] 04-13-2022 Mental Status Orientation Oriented x [address] [facility] 04-13-2022 Mental Status [facility] 04-13-2022 Mental Status [facility] 02-02-2022 Mental Status Oriented x 4 [facility] 02-02-2022 Mental Status [facility] 02-01-2022 Mental Status [facility] 12-18-2021 Mental Status [facility] 12-18-2021 Mental Status [facility] 11-21-2021 Mental Status [facility] 11-21-2021 Mental Status [facility] Clinical Notes 07-21-2021 to 05-17-2025 Note Date & Type Note Facility 05-17-2025 Note Exam Date Time Procedure Performing Provider Status 05/17/25 12:44 PM NM Myocardial Spect Rest/Stress SYDNEY LYNN MD; Auth (Verified) [id number] ORIGINAL NM MYOCARDIAL SPECT STRESS/REST CLINICAL STATEMENT: [...] PM Sign Date: 05/17/2025 6:32:23 PM Ordering Provider:[place] [address]-10-2025 Note* Exam Date Time Procedure Performing Provider Status 02/18/25 12:[address] Abdomen/Pelvis w/Contrast Daphnie DEWITT MD; Auth (Verified) [id number] ORIGINAL EXAMINATION: CT OF THE ABDOMEN AND [...] is partial ankylosis of the SI joints. 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 No [...] 02/18/2025 1:55:53 PM Ordering Provider: RANDY CAMACHO [facility]02-07-2025 Note. MICRO - Microbiology PROCEDURE: Urine Culture [...] Locations *1: This test was performed at: [address], [address] [place], [place] 4331802-06-2025 Note. MICRO - Microbiology PROCEDURE: Urine Culture [...] Locations *1: This test was performed at: [address], [address] [place], [place] [address]01-16-2025 Note. MICRO - Microbiology PROCEDURE: Urine Culture [...] Locations *1: This test was performed at: [facility], [address] [place] [address], [facility]- , [facility]07-03-2024 Hospital Discharge instructions Patient Education 02/12/2024 13:13:15 Radiology- CT Biopsy 11/29/2019 (CUSTOM) [facility] [facility] [facility] Biopsy Discharge Instructions Interventional Radiology [facility] Imaging Services [address] [place] [address] Today, you had a biopsy of your [...] 1 to 2 days following the procedure. Tydt-vqx-vhlcwme pain medication should be used for pain [...] the instruction below: First 24 hours call [phone] After 24 hours, contact the physician who [...] until you are awake and alert. Take qzpe-ibe-mybxezi and prescription medicines only as told by [...] 05/19/2014 Document Revised: 07/11/2018 Document Reviewed: 11/17/2016 [employer] Patient Education vendome 1699. Follow Up Care 01/14/2024 07:11:25 With:DELBERT CHAKRABORTY MD, Surgery Address: [address] [place] [address]- [phone] When: Unknown Comments:Follow-up as needed Follow-up as scheduled With:DELBERT CHAKRABORTY MD, Surgery Address: [address] [place] [address]- [phone] When: Unknown Comments:Follow-up as needed Follow-up as scheduled With:Go to emergency room if symptoms worsen Address:Unknown When: Unknown [facility] 07-03-2024 Note* CARMEN Woody: SIGN, AUTHOR, SIGN, AUTHOR, PERFORM Event Display: IR Procedure Record Authored Date: [id number] IR Procedure Record Summary Primary Physician: NIKIA GORE MD Finalized Date/Time: 02/12/24 13:04:03 Pt. Name: BLOSSOM BASS Bria GonzalezB./Sex: 1935 Male Med Rec #: [id number] Physician: Financial #: [id number] Pt. Type: O Room/Bed: / Admit/Disch: 02/12/24 09:48:00 - Institution: Allergies identified in patient's electronic medical record at time of printing on 02/12/24 Entry 1 Substance penicillin Reaction Type Allergy Last Modified By: Apryl Newsome PharmTanya 09/05/21 11:46:00 Case Attendance- IR Entry 1 Entry 2 Entry 3 Case Attendee NIKIA GORE MD, RN Jennifer M Myers Parisa BREANNA Role Performed Primary Surgeon Procedure Nurse Senior Mortgage Loan Processor Details Time In 02/12/24 11:43:00 02/12/24 11:45:00 [...] by: CARMEN Woody RN Jennifer M KAR, NIKIA HERNANDES Verbal Order Read SOFÍA, NIKIA GORE, NIKIA HERNANDES Back from: Last [...] for Time Out CARMEN Woody, Blood, Confirmation Parisa Proctor correct side and site marked, Relevant images and results are properly labeled and appropriately displayed, Confirm/obtain preop antibiotic order., Alcohol based prep dry, Double verification of sterility indicators complete Instrument Sterility Team Members NIKIA GORE MD, Esthela, Verifying Sterility Aniika Procedure IR Biopsy Abdomen (SN) Last Modified [...] Radiology - Action Plan Outcomes Met? Yes Carpenter Rough CARMEN Woody Completing Procedure Plan Last Modified [...] Woody 02/12/24 12:56 CARMEN Woody 02/12/24 13:04 [facility] 07-03-2024 Evaluation + Plan noteExtracted from: Title:IR [...] Lives in non-smoking home. Physical Exam Vitals: Bwrsmvvzwja39.5 (10:04) Systolic Blood Zhndyhrj829 (10:08) Diastolic Blood Chalcwxn11 (10:08) Pulse74 (10:04) YzT549 (10:04) Respiratory RateNo result General: Alert, cooperative. [...] home. Josie Soni PA-C Interventional Radiology Pager: [phone] dept: [phone] Available on [employer] [facility] Future Appointments Appointment Date:04/28/2024 09:00:00 AM Scheduled Provider:SP POPE DO Location:[facility] Appointment Type: OV Future Scheduled Tests Laboratory* Calcium Level Ionized 12/25/23 * Thyroid Stimulating Hormone 12/25/23 * Free T4 12/25/23 * Uric Acid 12/25/23 * A1C Hemoglobin 12/25/23 * Complete Blood Count 12/25/23 * Lipid Profile 12/25/23 * Albumin/Creatinine Ratio, Random Urine 12/25/23 * PTH, Intact 12/25/23 * Vitamin D Level 12/25/23 * Complete Metabolic Panel 12/25/23 [facility] 07-03-2024 Summary of episode note Discharge Instructions Thank you for allowing [facility] to assist you with your healthcare needs. The following is importantdischarge information regarding your hospital visit. Your Care Team SP POPE DO What to do next Scheduled Follow-Up Appointments Appointment Type When With Where Contact Information Status OV 04/28/2024 09:00 AM EDT SP POPE DO [facility] [place] [id number] [place] [address] Confirmed Follow Up Appointments Follow Up with DELBERT CHAKRABORTY MD, Surgery Where:[address] [facility] [place] [address]- [phone] Additional Information: Follow-up as needed Follow-up as [...] medication providers or retail pharmacies. Education Materials [facility] Biopsy Discharge Instructions Interventional Radiology [facility] Imaging Services [address] [place] [address] Today, you had a biopsy of your [...] 1 to 2 days following the procedure. Qeoa-vnm-jqtrlhm pain medication should be used for pain [...] the instruction below: First 24 hours call [phone] After 24 hours, contact the physician who [...] until you are awake and alert. Take gqcs-ioz-bgkydji and prescription medicines only as told by [...] 05/19/2014 Document Revised: 07/11/2018 Document Reviewed: 11/17/2016 [employer] Patient Education 2020 [employer]. Additional Information VACCINATE! IT SAVES LIVES! Members of the community who have not yet received the COVID-19 vaccine and would like to receive it can visit one of [facility] vaccine clinics. There are many vaccine clinic locations within the [facility]. For locations and available times, please visit [email or web address] It is important to note that some COVID mobile vaccine clinics are held outdoors and may be canceled in rainy or stormy conditions. To learn more about pediatric vaccinations (ages 5-11), we invite you to visit the [facility] webpage. [email or web address]/[email or web address] [email or web address] learn more about the COVID-19 vaccine, we invite you to visit the CDC website for a list of frequently asked questions.https://www.cdc.gov/coronavirus/2019-ncov/vaccines/faq.html [facility] Patient Portal Access Instructions: Stay connected with your healthcare team and access your personal medical information anytime with the [facility] Patient Portal. Please follow the directions below to create your [facility] account: 1.Access the email account you provided upon registration to the hospital/physician office.2.Look for an invitation email from [facility].3.Open the email and access the invitation link: AcceptInvitation to [facility].4.Fill in the required giang to create your account. To access your account, visit [email or web address]. Click the blue button labeled "Access Patient Portal" and then log in with the username and password that you created in the steps above. You will be able to view your test results, lab results, a summary of your visits, upcoming appointments and more. There is also a convenient messaging option where you can send secure messages to your p rovider. In addition, you will have the ability to download any documents or summaries to your computer and/or send the information securely to a physician. Remember that your healthcare information is confidential, so carefully consider who you will allowto register on the [facility] Patient Portal for access to your information. You can also access the [facility] Patient Portal on the [facility] lorna. Simply click on "Patient Portal" and then log into your account. If you would like to receive a full copy of your medical records, please contact the [facility] Medical Records Department by calling [phone], Saturday through Saturday between 8 a.m. and [...] Call your local pharmacy or go to [email or web address] to find one close to you.3.Make use of household items: Use cat litter or old coffee grounds to dispose medications if other options arenot available. Mix your drugs with these household products, seal them in an airtight container andthrow it into the garbage. Call [facility]: [phone] to be sure your drugs can be [...] aware that I should contact my doctor. 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 Name: BLOSSOM BASS D.O.B./Sex: 1935 Male [facility] Rec #: [id number] Physician: Financial #: [id number] Pt. Type: O Room/Bed: / Admit/Disch: 02/12/24 09:48:00 - Institution: Allergies identified in patient's electronic medical record at time of printing on 02/12/24 Entry 1 Substance penicillin Reaction Type Allergy Last Modified By: Apryl Newsome PharmD 09/05/21 11:46:00 Case Attendance- IR Entry 1 Entry 2 Entry 3 Case Attendee NIKIA GORE MD, CARMEN Proctor Aniika Role Performed Primary Surgeon Procedure Nurse Senior Mortgage Loan Processor Details Time In 02/12/24 11:43:00 02/12/24 11:45:00 [...] by No No No Physician? Administered by: Fichter, RN EricaCARMEN Melendrez RN Jennifer M Verbal Order Read NIKIA [...] for Time Out CARMEN Woody, Blood, Confirmation Esthela Aniika correct side and site marked, Relevant images and results are properly labeled and appropriately displayed, Confirm/obtain preop antibiotic order., Alcohol based prep dry, Double verification of sterility indicators complete Instrument Sterility Team Members NIKIA GORE MD, Esthela, Verifying Sterility Aniika Procedure IR Biopsy Abdomen (SN) Last Modified [...] Radiology - Action Plan Outcomes Met? Yes Carpenter Rough CARMEN Woody Completing Procedure Plan Last Modified [...] Woody 02/12/24 12:56 CARMEN Woody 02/12/24 13:04 [facility] [id number] Note ORIGINAL HISTORY: ORDERING SYSTEM PROVIDED HISTORY: [...] CT guided core biopsy, LUQ mesenteric lesion WATER RESTORATION TECHNICIAN: Dr. Gore DISTRIBUTING CLERK: None MATERIALS: 18G core biopsy device ANESTHESIA: [...] needle tract to reduce risk of bleeding. Carbonado removed. Sterile dressing placed. COMPLICATIONS: None EBL: [...] Sign Date: 02/12/2024 4:51:53 PM Ordering Provider: [facility]07-03-2024 Note Interventional Radiology Focused Preprocedure History/Physical Reason [...] Lives in non-smoking home. Physical Exam Vitals: Nicrrzbqhfb74.5 (10:04) Systolic Blood Twbowbsw679 (10:08) Diastolic Blood Puhpkisf61 (10:08) Pulse74 (10:04) XpI485 (10:04) Respiratory RateNo result General: Alert, cooperative. [...] home. Josie Soni PA-C Interventional Radiology Pager: [phone] dept: x [phone] Available on [employer] Digitally Signed by JOSIE SONI PA-C on 02/12/2024 11:01 AM [id number] Note ORIGINAL EXAMINATION: BONE DENSITOMETRY 01/01/2024 2:50 [...] Sign Date: 01/01/2024 3:45:07 PM Ordering Provider: [facility]04-22-2024 Note ORIGINAL EXAMINATION: CT OF THE ABDOMEN [...] Date: 12/02/2023 4:48:20 PM Ordering Provider: RANDY [facility]03-12-2024 Note * Exam Date Time Procedure Performing Provider Status 10/22/23 10:02 AM VL Carotid US/Dopple r Complete - CV Auth (Verified) [facility] 03-12-2024 Note* Exam Date Time Procedure Performing Provider Status 10/22/23 9:47 AM Echocardiogram, Adult - CV Auth (Verified) [facility] 02-23-2024 Note. MICRO - Microbiology PROCEDURE: Urine [...] Locations *1: This test was performed at: [address], [facility] , [facility]04-29-2023 Note ORIGINAL LOWER EXAMINATION: CT OF THE [...] Sign Date: 04/29/2023 4:46:04 PM Ordering Provider: [facility]09-02-2022 Note * Mara Colon RN: SIGN, AUTHOR, SIGN, AUTHOR, PERFORM Event Display: CT Procedure Record Authored Date: [id number] CT Procedure Record Summary Primary Physician: Finalized Date/Time: 04/13/22 13:53:27 Pt. Name: BLOSSOM BASS Bria GonzalezB./Sex: 1935 Male Med Rec #: [id number] Physician: Financial #: [id number] Pt. Type: O Room/Bed: / Admit/Disch: 04/13/22 11:33:00 - Institution: Allergies identified in patient's electronic medical record at time of printing on 04/13/22 Entry 1 Substance penicillin Reaction Type Allergy Last Modified By: Apryl Newsome PharmTanya 09/05/21 11:46:00 Case Attendance- CT Entry 1 Entry 2 Entry 3 Case Attendee NIKIA GORE MD, Brittaney RN Thomas, Stephanie M Rad Tech Role Performed Radiologist Procedure Procedure Nurse Senior Mortgage Loan Processor Details Time In 04/13/22 13:21:00 04/13/22 12:59:00 [...] Out Minor Terry RN, Relevant images and mobicanvas results are properly labeled and appropriately displayed, [...] Radiology - Action Plan Outcomes Met? Yes Carpenter Rough Mara Colon RN Completing Procedure Plan Last Modified By: Mara Colon RN 04/13/22 13:08:49 Radiology Lines and Procedures- CT Entry 1 Radiology Sedation Case Times Sedation Start Time 04/13/22 13:22:00 Sedation Stop Time 04/13/22 13:45:00 Sedation Total Time 23 min Radiology - Fluid/Drainage RAD - CT Guidewires, Cath... Carbonado Corvocet Biopsy System [id number] Radiology Urinary Catheter Radiology - CT Other [...] 04/13/22 13:53 Mara Colon RN 04/13/22 13:53 [facility] 09-02-2022 Hospital Discharge instructions Patient Education 04/13/2022 [...] until you are awake and alert. Take kwov-yik-mgejwcf and prescription medicines only as told by [...] 05/19/2014 Document Revised: 07/11/2018 Document Reviewed: 11/17/2016 [employer] Patient Education 2020 [employer]. 04/13/2022 12:51:35 Radiology- CT Biopsy 11/29/2019 (Custom) [place] [facility] Liver Biopsy Discharge Instructions Interventional Radiology [facility] Imaging Services [address] [place] [address] Today, you had a biopsy of your [...] 1 to 2 days following the procedure. Fcnw-fqj-lewamrq pain medication should be used for pain [...] Medication: Please resume _all home medications today [id number] . When to seek medical help: Lightheadedness, dizziness, or fainting. Severe pain or swelling at the puncture site. Severe nausea or vomiting. Infection: fever greater than 101 degrees, chills, redness, warmth, swelling, bleeding, or pus frompuncture site. If you experience any of these issues during the first 24 hours, please follow the instruction below: call [phone] After 24 hours, contact the physician who [...] 04/09/2022 14:18:53 With:BRITTANY RODRIGUEZ, Surgery Address: [address] [facility] [address] [facility] [place] [address]- [phone] When: Unknown Comments:Follow-up as needed [facility] 09-02-2022 Evaluation + Plan noteExtracted from: Title:IR [...] paper, which has been scanned into the [facility] PACS/RIS system. _ Future Appointments Appointment Date:05/10/2022 11:30:00 AM Scheduled Provider:BALBIR STOVALL MD Location:[facility] Appointment Type:ENDO OV Appointment Date:06/07/2022 11:30:00 AM Scheduled Provider:SP POPE DO Location[facility] Appointment Type:PC OV Follow Up Appointment Date:10/02/2022 11:30:00 AM Scheduled Provider:SP POPE DO Location:[facility] Appointment Type:PC OV Follow Up Future Scheduled Tests Laboratory* Thyroid Stimulating Hormone 05/11/22 * Free T4 05/11/22 * Free T3 05/11/22 * Lipid Profile 05/11/22 * Vitamin D Level 05/11/22 * Complete Metabolic Panel 05/11/22 * [facility] Send out (Blood Specimens) 07/26/21 [facility] 09-02-[address] Procedure Record Summary Primary Physician: Finalized Date/Time: 04/13/22 13:53:27 Pt. Name: BLOSSOM BASS/Sex: 1935 Male Med Rec #: [id number] Physician: Financial #: [id number] Pt. Type: O Room/Bed: / Admit/Disch: 04/13/22 11:33:00 - Institution: Allergies identified in patient's electronic medical record at time of printing on 04/13/22 Entry 1 Substance penicillin Reaction Type Allergy Last Modified By: Apryl Newsome PharmTanya 09/05/21 11:46:00 Case Attendance- CT Entry 1 Entry 2 Entry 3 Case Attendee NIKIA GORE MD, Brittaney RN Thomas, Stephanie M [facility] Role Performed Radiologist Procedure Procedure Nurse Senior Mortgage Loan Processor Details Time In 04/13/22 13:21:00 04/13/22 12:59:00 [...] Data- CT Entry [address] 2 Case Level None Wound Class [...] Out Minor Terry RN, Relevant images and mobicanvas results are properly labeled and appropriately displayed, [...] Radiology - Action Plan Outcomes Met? Yes Carpenter Rough Mara Colon RN Completing Procedure Plan Last Modified By: Mara Colon RN 04/13/22 13:08:49 Radiology Lines and Procedures- CT Entry 1 Radiology Sedation Case Times Sedation Start Time 04/13/22 13:22:00 Sedation Stop Time 04/13/22 13:45:00 Sedation Total Time 23 min Radiology - Fluid/Drainage RAD - CT Guidewires, Cath... Carbonado Corvocet Biopsy System [id number] Radiology Urinary Catheter Radiology - CT Other [...] ID Band on [facility]isha [facility] Last Modified By: Mara Colon RN 04/13/22 13:53:10 Case Comments Finalized By: Mara Colon RN Document Signatures Signed By: Mara Colon RN 04/13/22 13:53 Mara Colon RN 04/13/22 13:53 [facility] [id number] Summary of episode note Discharge Instructions Thank you for allowing [facility] to assist you with your healthcare needs. The following is importantdischarge information regarding your hospital visit. Your Care Team SP POPE DO What to do next Scheduled Follow-Up Appointments Appointment Type When With Where Contact InformationENDO OV 05/10/2022 11:30 AM BALBIR WALTERS MD [facility]inology [facility] [facility] Follow Up 06/07/2022 11:30 AM EDSP ALMODOVAR DO [facility] OV Follow Up 10/02/2022 11:30 AM SP [facility] [address] [place] [address] Follow Up Appointments Follow Up with BRITTANY RODRIGUEZ, Surgery When Why: Follow-up as needed Where: [address] [facility] [address] [place] [address] [phone] Allergies penicillin (rash/hives) Medications Please ask your primary doctor or pharmacist before taking any other medication not listed, including over the counter drugs, herbal medications, vitamins and or supplements as they may interact withyour home medications. What How Much When Why [...] until you are awake and alert. Take sqvl-duw-mvavrus and prescription medicines only as told by [...] 05/19/2014 Document Revised: 07/11/2018 Document Reviewed: 11/17/2016 [employer] Patient Education 2020 [employer]he[address] [place] [facility] Liver Biopsy Discharge Instructions Interventional Radiology [facility] [address] [place] [address] Today, you had a biopsy of your [...] 1 to 2 days following the procedure. Ygcx-vdi-iyxnbep pain medication should be used for pain [...] Medication: Please resume _all home medications today [phone] . When to seek medical help: Lightheadedness, dizziness, or fainting. Severe pain or swelling at the puncture site. Severe nausea or vomiting. Infection: fever greater than 101 degrees, chills, redness, warmth, swelling, bleeding, or pus frompuncture site. If you experience any of these issues during the first 24 hours, please follow the instruction below: call [phone] After 24 hours, contact the physician who [...] to receive it can visit one of [facility] vaccine clinics. There are many vaccine clinic locations within the [facility]. For locations and available times, please visit [email or web address]/. It is important to note that some COVID mobile vaccine clinics are held outdoors and may be canceled in rainy or stormy conditions. To learn more about pediatric vaccinations (ages 5-11), we invite you to visit the [facility] webpage. https://[email or web address]/pages/[email or web address]-Uhvsz-Sydwtdnxpkk-Xnodifefxe-Pedcn-Sgq stions.htmlTo learn more about the COVID-19 vaccine, we invite you to visit the [facility] website for a list of frequently asked questions. [email or web address]-[email or web address] _[email or web address]-Questions.pdf [facility] Patient Portal Access Instructions: Stay connected with your healthcare team and access your personal medical information anytime with the [facility] Patient Portal.If you would like a full copy of your medical records, please contact the [facility] Medical Records Department, Saturday through Saturday between 8a.m. and 4:30p.m. Please follow the directions below to access the portal: 1.Access the email account you provided upon registration to the hospital.2.Look for an invitation email from [facility].3.Open the email and access the invitation link: Accept Invitation to [facility]4.Fill in the required giang to create your account. Sign into www.[email or web address] Grouporg with your username and password that you [...] you will allow to register on the [facility] Patient Portal for access to your information. You can also access the [facility] Patient Portal on the [employer] lorna. Simply click on "Health Records" under "HealthData" and then click on the [employer] logo. HOW TO SAFELY DISPOSE OF PRESCRIPTION [...] Call your local pharmacy or go to [email or web address] to find one close to you.3.Make use of household items: Use cat litter or old coffee grounds to dispose medications if other options arenot available. Mix your drugs with these household products, seal them in an airtight container andthrow it into the garbage. Call [facility]: [phone] to be sure your drugs can be [...] aware that I should contact my doctor. 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 _ Digitally Signed by MARCUS KUMAR PA-C on 04/13/2022 12:49 PM Digitally Signed by NIKIA GORE MD on 04/13/2022 01:59 PM [facility] [id number] Procedure note Brief IR Post Procedure Note - Outpatient Pre Procedure Dx: GB fossa mass Post Procedure Dx: Same Procedure: 1. CT core biospy Linux Unix System Administrator: Sofía [employer] Custodian: None Anesthesia: Local, moderate sedation EBL: Minimal Complications:None Status: Stable Findings: 1. 10 x 18G cores of GB fossa mass, which was PET +. Mild bleeding so injected gelfoam slurry with no further bleeding. No hematoma on post CT images. Plan: 1. VS check then d/c home Full report to follow. Orders in Cerner. Nikia "Cyndee Gore MD Vascular & Interventional Radiology [facility] ([facility]) [email or web address] [email or web address] Pager: [phone] [facility] Dept (04/03): [phone] [facility] [phone] [facility] (Updated 05/2021) Digitally Signed by NIKIA GORE MD on 04/13/2022 02:00 PM [facility] [id number] Hospital Discharge instructions Patient Education 02/02/2022 09:30:20 [...] Follow these instructions at home: Medicines Take hsor-qmk-qzppwce and prescription medicines only as told by [...] to keep your urine pale yellow. ?Take bfte-axs-zwmxzao or prescription medicines. ?Eat foods that are [...] 10/15/2006 Document Revised: 09/04/2019 Document Reviewed: 12/10/2018 [employer] Patient Education 2020 Niche. Follow Up Care 01/29/2022 07:06:46 With:DELBERT CHAKRABORTY MD, Surgery Address: [address] [place] [address]- When:02/19/2022 14:50:00 Comments:This is your post-hospital appointment with general surgery. It is in the [place] office. With:SHIRA GOOD Address: [address] [facility] [place] [address] [phone] When:02/09/2022 13:00:00 Comments:This is your post-hospital follow-up appointment. [facility] 06-20-2022 Evaluation + Plan noteExtracted from: Title:History and Physical Author:NASREEN CARDENAS Date:01/29/22 1. Small bowel obstruction 2. Abdominal [...] Appointment Date:02/09/2022 01:00:00 PM Scheduled Provider:SHIRA GOOD Location:[facility] Appointment Type:PC OV Hospital Follow-Up Appointment Date:02/19/2022 02:50:00 PM Scheduled Provider:DELBERT CHAKRABORTY MD Location:[facility] Appointment Type:GS FOOD SERVICE Appointment Date:04/03/2022 10:30:00 AM Scheduled Provider:SP POPE DO Location:[facility] Appointment Type:PC Wellness Medicare Appointment Date:05/10/2022 11:30:00 AM Scheduled Provider:BALBIR STOVALL MD Location:[facility] Appointment Type:[facility] OV Future Scheduled Tests Laboratory* Thyroid Stimulating Hormone 05/11/22 * Free T4 05/11/22 * Free T3 05/11/22 * Lipid Profile 05/11/22 * Vitamin D Level 05/11/22 * Complete Metabolic Panel 05/11/22 * [facility] Send out (Blood Specimens) 07/26/21 [facility] 05-09-2022 Evaluation + Plan noteExtracted from: Title:Clinical Document Author:MELL MERCADO Date:12/18/21 [place] ADMISSION HISTORY AN D PHYSICIAL CHIEF COMPLAINT: HISTORY OF PRESENT ILLNESS: REVIEW OF SYSTEMS: ACTIVE PROBLEMS: (56) Abnormal barium swallow (365434226) Adynamic ileus (89840859) Anemia (358666961) Asthma (766651968) At low risk for fall (7802411730) Back pain (847733354) BPH (benign prostatic hyperplasia) (687529176) BPH with urinary obstruction (1492624118) Cellulitis (316128128) Cerumen impaction (42223976) Cervical arthritis (8443020832) CKD (chronic kidney disease) stage 3, GFR 30-59 ml/min (5871919024) Depression screening (941559301) Diastasis recti (777294063) Dupuytren's contracture of hand (330431359) Esophageal dysphagia (97105582) GERD (gastroesophageal reflux disease) (644685457) Glaucoma screening (558982756) Gout (917414587) Hard of hearing (10121940) Hearing difficulty (534572671) Hearing loss (81370514) Hiatal hernia (471975170) Hospital discharge follow-up (6484182822) Hyperlipidemia (63127168) Hypertension ([id number]) Hypocalcemia (6350395) Hypothyroidism (30237588) Immunization due (373585746) Jaundice (24802109) Leg edema (206016023) Leg swelling (8303478338) Lightheadedness (0439485070) Major depression, single episode, in complete remission (1095506457) Medicare annual wellness visit, subsequent (650581352) Need for vaccination (9154453090) Night sweats (21048484) CONNER treated with BiPAP (999473378) Osteoarthritis of left hip (9446930570) Osteoporosis (952036337) Osteoporosis screening (151738502) Prediabetes (5342350243) Rash (228984183) Rectus diastasis (325959158) S/P cholecystectomy (0784488868) Screening for cardiovascular condition (257080735) Seasonal allergies (7583677415) Secondary hyperparathyroidism (532901357) Sinus congestion (763906180) Somatic dysfunction of lumbar region (2480446916) Somatic dysfunction of rib region (5577775519) Subclinical hypothyroidism (11083088) Umbilical hernia (4269866210) UTI (urinary tract infection) (943837885) Vertigo (4764891446) Vitamin D deficiency (28681442) MEDICATIONS: Active Inpt Meds: None Active PRN Meds: None One Time Meds: None Active IV Meds: Lactated Ringers Infusion 1,000 mL (LR 1,000 mL) Start: 12/18/21 8:09:00 EDT, Rate: 50 mL/hr, 12/18/21 8:09:00 EDT ALLERGIES: (1) penicillin FAMILY HISTORY: SOCIAL HISTORY: PHYSICAL EXAM: VITALS: SavrebHdduCYHksfeBOMuA5IBM0JdawQy(kg) 12/18 08:0936.3131/33809655RF94/09 81.8 24 Hr Tmax: 36.3 at 12/18 [...] Date:04/03/2022 10:30:00 AM Scheduled Provider:SP POPE DO Location:[facility] Appointment Type:PC Wellness Medicare Appointment Date:05/10/2022 11:30:00 AM Scheduled Provider:BALBIR STOVALL MD Location:[facility] Appointment Type:[facility] OV Future Scheduled Tests Laboratory* Thyroid Stimulating Hormone 05/11/22 * Free T4 05/11/22 * Free T3 05/11/22 * Lipid Profile 05/11/22 * Vitamin D Level 05/11/22 * Complete Metabolic Panel 05/11/22 * [facility] Send out (Blood Specimens) 07/26/21 Radiology* XR Chest 2 Views (PA & Lateral) 12/27/20 [facility] 05-09-2022 Hospital Discharge instructions Patient Education 12/18/2021 [...] before eating solid foods. General instructions Take wnpm-euk-udycvih and prescription medicines only as told by [...] 11/18/2016 Document Revised: 2018 Document Reviewed: 11/18/2016 [employer] Patient Education 2020 Niche. Follow Up Care 11/29/2021 13:39:05 With:MELL MERCADO Address: [address] [place] [address] [phone] Business (1) When: Unknown Comments:CALL OFFICE FOR FOLLOW UP. [facility] 04-12-2022 Hospital Discharge instructions Patient Education 11/21/2021 [...] of 100.4 F (38 C) or higher 3750-1758 [employer]. [address] [place] [address], [place] [address]. All rights reserved. This information is not intended as a substitute for professional medical care. Always follow [facility] professional's instructions. 11/21/2021 15:01:28 Anemia Anemia Anemia [...] for life. Yourdoctor can tell you more. 6920-4751 [employer]. [address] [place] [address]. All rights reserved. This information is not intended as a substitute for professional medical care. Always follow [facility] professional's instructions. 11/21/2021 15:01:26 Ileus [...] Bleeding from the rectum Black, tarry stool 8760-2583 [employer]. [address] [place] [address]. All rights reserved. This information is not intended as a substitute for professional medical care. Always follow yourhealthcare professional's instructions. Follow Up Care 11/21/2021 09:59:14 With:MELL MERCADO Address: [address] [phone] Business (1) When:2-4 days Comments:Schedule appointment as soon as possibleReturn to ED if symptoms worsenFollow up for gi studies elma. Clear liquid diet ie pedialyte x 12hrs and if better increase to soft non-dairy diet. Start 2 citrucel tabs 2x/day. Return for symptoms as described [facility] 01-28-2022 Hospital Discharge instructions Patient Education 09/08/2021 [...] including vitamins, herbs, eye drops, creams, and oinl-agj-fdgxfax medicines. Previous problems you or members of [...] 11/19/2016 Document Revised: 07/11/2018 Document Reviewed: 10/10/2016 [employer] Patient Education 2020 Niche. 09/08/2021 13:50:02 Ileus Ileus Ileus is a [...] Lack of normal bowel sounds, such as "growling" in the stomach. How is this diagnosed? [...] feel full. Avoid alcohol. General instructions Take ummy-gct-eydwojf and prescription medicines only as told by [...] 07/31/2004 Document Revised: 11/24/2018 Document Reviewed: 11/24/2018 [employer] Patient Education 2020 Niche. Follow Up Care 09/05/2021 05:31:31 With:SP POPE DO Address: [address] [place] [address] [place] [address]- [phone] When:09/21/2021 10:30:00 Comments:[facility] Evaluation + Plan noteExtracted from: Title:History and Physical Author:MOHINI GUAN APRN-MEDICARE COMPLIANCE AUDITOR Date:09/05/21 1. Ileus 2. Nitst-au-upnohwr kidney injury 3. Hypertension 4. COPD without [...] Date:09/21/2021 10:30:00 AM Scheduled Provider:SP POPE DO Location:[facility] Appointment Type[facility] Hospital Follow-Up Appointment Date:10/25/2021 10:30:00 AM Scheduled Provider:SP POPE DO Location:[facility] Appointment Type: OV Appointment Date:11/09/2021 11:30:00 AM Scheduled Provider:BALBIR STOVALL MD Location:[facility] Appointment Type:[facility] OV Future Scheduled Tests Laboratory* Cross-Linked N-Telopeptide Urine 11/08/21 * Thyroid Stimulating Hormone 11/08/21 * Free T4 11/08/21 * Lipid Profile 11/08/21 * Vitamin D Level 11/08/21 * Complete Metabolic Panel 11/08/21 * [facility] Lab Send out (Blood Specimens) 07/26/21 Radiology* XR Chest 2 Views (PA & Lateral) 12/27/20 [facility] 12-10-2021 Hospital Discharge instructions Patient Education 07/21/2021 [...] red color) Loss of consciousness Severe headache 5200-5667 [employer]. [address] [place] [address], [place] [address]. All rights reserved. This information is not intended as a substitute for professional medical care. Always follow yourhealthcare professional's instructions. Follow Up Care 07/21/2021 13:11:45 With:SP POPE Address:Unknown When:2-4 days Comments:Schedule an appointment for close follow-up.Drink plenty of fluids and rest.Use Tylenol or Advil for fever as needed.Continue all of your current medications.Return to the ED if symptoms worsen. [facility] Evaluation + Plan note Future Appointments Appointment Date:06/07/2021 11:30:00 AM Scheduled Provider:SP POPE DO Location:[facility] Appointment Type:PC OV Appointment Date:11/09/2021 11:30:00 AM Scheduled Provider:BALBIR STOVALL MD Location:[facility] Appointment Type:[facility] OV Future Scheduled Tests Laboratory* Cross-Linked N-Telopeptide Urine 11/08/21 * Thyroid Stimulating Hormone 11/08/21 * Free T4 11/08/21 * Lipid Profile 11/08/21 * Vitamin D Level 11/08/21 * Complete Metabolic Panel 11/08/21 Radiology* XR Chest 2 Views (PA & Lateral) 12/27/20 [facility] Evaluation + Plan note Future Appointments Appointment Date:06/28/2021 10:00:00 AM Scheduled Provider: Location:[facility] Appointment Type:COVID AMB VACCINE Appointment Date:07/26/2021 10:00:00 AM Scheduled Provider:SP POPE DO Location:[facility] Appointment Type:PC OV Appointment Date:11/09/2021 11:30:00 AM Scheduled Provider:BALBIR STOVALL MD Location:[facility] Appointment Type:[facility] Future Scheduled Tests Laboratory* Cross-Linked N-Telopeptide Urine 11/08/21 * Thyroid Stimulating Hormone 11/08/21 * Free T4 11/08/21 * Lipid Profile 11/08/21 * Vitamin D Level 11/08/21 * Complete Metabolic Panel 11/08/21 Radiology* XR Chest 2 Views (PA & Lateral) 12/27/20 [facility] Evaluation + Plan note Future Appointments Appointment Date:07/26/2021 10:00:00 AM Scheduled Provider:SP POPE DO Location:[facility] Appointment Type:PC OV Appointment Date:11/09/2021 11:30:00 AM Scheduled Provider:BALBIR STOVALL MD Location:[facility] Appointment Type:[facility] OV Future Scheduled Tests Laboratory* Cross-Linked N-Telopeptide Urine 11/08/21 * Thyroid Stimulating Hormone 11/08/21 * Free T4 11/08/21 * Lipid Profile 11/08/21 * Vitamin D Level 11/08/21 * Complete Metabolic Panel 11/08/21 Radiology* XR Chest 2 Views (PA & Lateral) 12/27/20 [facility] Evaluation + Plan note Future Appointments Appointment Date:10/25/2021 10:30:00 AM Scheduled Provider:SP POPE DO Location:[facility] Appointment Type:PC OV Appointment Date:11/09/2021 11:30:00 AM Scheduled Provider:BALBIR STOVALL MD Location:[facility] Appointment Type:ENDO OV Diagnostic Tests Pending * .CBC Path Review 08/01/21 Future Scheduled Tests Laboratory* Cross-Linked N-Telopeptide Urine 11/08/21 * Thyroid Stimulating Hormone 11/08/21 * Free T4 11/08/21 * Lipid Profile 11/08/21 * Vitamin D Level 11/08/21 * Complete Metabolic Panel 11/08/21 * [facility] Lab Send out (Blood Specimens) 07/26/21 Radiology* XR Chest 2 Views (PA & Lateral) 12/27/20 [facility] Evaluation + Plan note Future Appointments Appointment Date:11/09/2021 11:30:00 AM Scheduled Provider:BALBIR STOVALL MD Location:[facility] Appointment Type:ENDO OV Appointment Date:12/12/2021 10:00:00 AM Scheduled Provider:SP POPE DO Location:[facility] Appointment Type:PC OV Diagnostic Tests Pending * Cross-Linked N-Telopeptide Urine 11/01/21 Future Scheduled Tests Laboratory* [facility] Lab Send out (Blood Specimens) 07/26/21 Radiology* XR Chest 2 Views (PA & Lateral) 12/27/20 [facility] Evaluation + Plan note Future Appointments Appointment Date:12/12/2021 10:00:00 AM Scheduled Provider:SP POPE DO Location:[facility] Appointment Type:PC OV Appointment Date:05/10/2022 11:30:00 AM Scheduled Provider:BALBIR STOVALL MD Location:[facility] Appointment Type:ENDO OV Future Scheduled Tests Laboratory* Thyroid Stimulating Hormone 01/04/22 * Thyroid Stimulating Hormone 05/11/22 * Free T4 05/11/22 * Free T4 01/04/22 * Free T3 05/11/22 * Lipid Profile 05/11/22 * Vitamin D Level 05/11/22 * Complete Metabolic Panel 05/11/22 * [facility] Send out (Blood Specimens) 07/26/21 Radiology* XR Chest 2 Views (PA & Lateral) 12/27/20 [facility] Evaluation + Plan note Future Appointments Appointment Date:04/03/2022 10:30:00 AM Scheduled Provider:SP POPE DO Location:[facility] Appointment Type:PC Wellness Medicare Appointment Date:05/10/2022 11:30:00 AM Scheduled Provider:BALBIR STOVALL MD Location:[facility] Appointment Type:ENDO OV Future Scheduled Tests Laboratory* Thyroid Stimulating Hormone 05/11/22 * Free T4 05/11/22 * Free T3 05/11/22 * Lipid Profile 05/11/22 * Vitamin D Level 05/11/22 * Complete Metabolic Panel 05/11/22 * [facility] Send out (Blood Specimens) 07/26/21 Radiology* XR Chest 2 Views (PA & Lateral) 12/27/20 [facility] Evaluation + Plan note Future Appointments Appointment Date:04/03/2022 10:30:00 AM Scheduled Provider:SP POPE DO Location:[facility] Appointment Type: Wellness Medicare Appointment Date:05/10/2022 11:30:00 AM Scheduled Provider:BALBIR STOVALL MD Location:[facility] Appointment Type:ENDO OV Future Scheduled Tests Laboratory* Thyroid Stimulating Hormone 05/11/22 * Free T4 05/11/22 * Free T3 05/11/22 * Lipid Profile 05/11/22 * Vitamin D Level 05/11/22 * Complete Metabolic Panel 05/11/22 * [facility] Send out (Blood Specimens) 07/26/21 [facility] Evaluation + Plan note Future Appointments Appointment Date:03/01/2022 03:00:00 PM Scheduled Provider:DELBERT CHAKRABORTY MD Location:[facility] Appointment Type:GS OV Check after Test Appointment Date:04/03/2022 10:30:00 AM Scheduled Provider:SP POPE DO Location:[facility] Appointment Type:PC Wellness Medicare Appointment Date:05/10/2022 11:30:00 AM Scheduled Provider:BALBIR STOVALL MD Location:[facility] Appointment Type:[facility] OV Future Scheduled Tests Laboratory* Thyroid Stimulating Hormone 05/11/22 * Free T4 05/11/22 * Free T3 05/11/22 * Lipid Profile 05/11/22 * Vitamin D Level 05/11/22 * Complete Metabolic Panel 05/11/22 * [facility] Send out (Blood Specimens) 07/26/21 [facility] Evaluation + Plan note Future Appointments Appointment Date:04/03/2022 10:30:00 AM Scheduled Provider:SP POPE DO Location:[facility] Appointment Type:PC Wellness Medicare Appointment Date:04/05/2022 01:00:00 PM Scheduled Provider:DELBERT CHAKRABORTY MD Location:[facility] Appointment Type:GS OV Appointment Date:05/10/2022 11:30:00 AM Scheduled Provider:BALBIR STVOALL MD Location:[facility] Appointment Type:ENDO OV Future Scheduled Tests [...] Staging Tumor WB Head to Toe 03/07/22 [facility] Evaluation + Plan note Future Appointments Appointment Date:10/17/2022 11:30:00 AM Scheduled Provider: Location:[facility] Appointment Type:CT Abdomen and Pelvis w/ Contrast Appointment Date:11/01/2022 01:00:00 PM Scheduled Provider:DELBERT CHAKRABORTY MD Location:[facility] Appointment Type:GS OV Check after Test Appointment Date:11/08/2022 11:30:00 AM Scheduled Provider:BALBIR STOVALL MD Location:[facility] Appointment Type:ENDO OV Appointment Date:04/02/2023 11:00:00 AM Scheduled Provider:SP POPE DO Location:[facility] Appointment Type:PC OV Future Scheduled [...] CT Abdomen and Pelvis w/ contrast 10/17/22 [facility] evaluation + Plan note Future Appointments Appointment Date:05/06/2023 01:20:00 PM Scheduled Provider:DELBERT CHAKRABORTY MD Location:[facility] Appointment Type:GS OV Check after Test Appointment Date:10/01/2023 10:00:00 AM Scheduled Provider:SP POPE DO Location:[facility] Appointment Type:PC OV Future Scheduled Tests Laboratory* Cross-Linked N-Telopeptide Urine 11/07/22 * Thyroid Stimulating Hormone 11/07/22 * Free T4 11/07/22 * A1C Hemoglobin 11/07/22 * Creatinine Random Urine 11/07/22 * PTH, Intact 11/07/22 * Vitamin D Level 11/07/22 * Complete Metabolic Panel 11/07/22 Radiology* CT Abdomen and Pelvis w/ contrast 04/12/23 [facility] Evaluation + Plan note Future Appointments Appointment Date:05/06/2023 01:20:00 PM Scheduled Provider:DELBERT CHAKRABORTY MD Location:[facility] Appointment Type:GS OV Check after Test Appointment Date:10/01/2023 10:00:00 AM Scheduled Provider:SP POPE DO Location:[facility] Appointment Type:PC OV Future Scheduled Tests Laboratory* Cross-Linked N-Telopeptide Urine 11/07/22 * Thyroid Stimulating Hormone 11/07/22 * Free T4 11/07/22 * A1C Hemoglobin 11/07/22 * Creatinine Random Urine 11/07/22 * PTH, Intact 11/07/22 * Vitamin D Level 11/07/22 * Complete Metabolic Panel 11/07/22 [facility] Evaluation + Plan note Future Appointments Appointment Date:11/04/2023 11:30:00 AM Scheduled Provider: Location:[facility] Appointment Type:CT Abdomen and Pelvis w/ Contrast Appointment Date:11/14/2023 01:00:00 PM Scheduled Provider:DELBERT CHAKRABORTY MD Location:[facility] Appointment Type:GS OV Check after Test Appointment Date:12/25/2023 10:30:00 AM Scheduled Provider:SP POPE DO Location:[facility] Appointment Type:PC Wellness Medicare Appointment Date:03/31/2024 11:00:00 AM Scheduled Provider:SP POPE DO Location:[facility] Appointment Type:PC OV Diagnostic Tests Pending * Urine Culture 10/02/23 Future Scheduled Tests Radiology* CT Abdomen and Pelvis w/ contrast 11/04/23 [facility] Evaluation + Plan note Future Appointments Appointment [...] Date:12/25/2023 10:30:00 AM Scheduled Provider:SP POPE DO Location:[facility] Appointment Type:PC Wellness Medicare Appointment Date:03/31/2024 11:00:00 AM Scheduled Provider:SP POPE DO Location:[facility] Appointment Type:PC OV Future Scheduled Tests Radiology* CT Abdomen and Pelvis w/ contrast 11/04/23 [facility] Evaluation + Plan note Future Appointments Appointment Date:10/22/2023 10:00:00 AM Scheduled Provider: Location:[facility] Appointment Type:Echo - Echocardiogram Adult Appointment Date:10/22/2023 11:00:00 AM Scheduled Provider: Location:[facility] Appointment Type:VL - Carotid US/Doppler Complete Appointment Date:11/04/2023 11:30:00 AM Scheduled Provider: Location:[facility] Appointment Type:CT Abdomen and Pelvis w/ Contrast Appointment Date:11/14/2023 01:00:00 PM Scheduled Provider:DELBERT CHAKRABORTY MD Location:[facility] Appointment Type:GS OV Check after Test Appointment Date:12/25/2023 10:30:00 AM Scheduled Provider:SP POPE DO Location:[facility] Appointment Type:[facility] Medicare Appointment Date:03/31/2024 11:00:00 AM Scheduled Provider:SP POPE DO Location:[facility] Appointment Type:PC OV Future Scheduled Tests Radiology* CT Abdomen and Pelvis w/ contrast 11/04/23 [facility] Evaluation + Plan note Future Appointments Appointment Date:11/04/2023 11:30:00 AM Scheduled Provider: Location:[facility] Appointment Type:CT Abdomen and Pelvis w/ Contrast Appointment Date:11/14/2023 01:00:00 PM Scheduled Provider:DELBERT CHAKRABORTY MD Location:[facility] Appointment Type:GS OV Check after Test Appointment Date:12/25/2023 10:30:00 AM Scheduled Provider:SP POPE DO Location:[facility] Appointment Type: Wellness Medicare Appointment Date:03/31/2024 11:00:00 AM Scheduled Provider:SP POPE DO Location:[facility] Appointment Type:PC OV Future Scheduled Tests Radiology* CT Abdomen and Pelvis w/ contrast 3/25/24 [facility] Evaluation + Plan note Future Appointments Appointment Date:12/25/2023 10:30:00 AM Scheduled Provider:SP POPE DO Location:[facility] Appointment Type:PC Wellness Medicare Appointment Date:03/31/2024 11:00:00 AM Scheduled Provider:SP POPE DO Location:[facility] Appointment Type:PC OV [facility] Evaluation + Plan note Future Appointments Appointment Date:01/09/2024 01:20:00 PM Scheduled Provider:DELBERT CHAKRABORTY MD Location:[facility] Appointment Type:GS OV Appointment Date:04/28/2024 09:00:00 AM Scheduled Provider:SP POPE DO Location:[facility] Appointment Type:PC OV Future Scheduled Tests Laboratory* Calcium Level Ionized 12/25/23 * Thyroid Stimulating Hormone 12/25/23 * Free T4 12/25/23 * Uric Acid 12/25/23 * A1C Hemoglobin 12/25/23 * Complete Blood Count 12/25/23 * Lipid Profile 12/25/23 * Albumin/Creatinine Ratio, Random Urine 12/25/23 * PTH, Intact 12/25/23 * Vitamin D Level 12/25/23 * Complete Metabolic Panel 12/25/23 [facility] Evaluation + Plan note Future Appointments Appointment Date:10/20/2024 10:00:00 AM Scheduled Provider:SP POPE DO Location:[facility] Appointment Type:PC OV Appointment Date:02/15/2025 11:00:00 AM Scheduled Provider: Location:[facility] Appointment Type:CT Abdomen and Pelvis w/ Contrast Appointment Date:02/22/2025 01:00:00 PM Scheduled Provider:DELBERT CHAKRABORTY MD Location:[facility] Appointment Type:GS OV Follow Up Future Scheduled Tests Radiology* CT Abdomen and Pelvis w/ contrast 02/15/25 [facility] Evaluation + Plan note Future Appointments Appointment Date:10/20/2024 10:00:00 AM Scheduled Provider:SP POPE DO Location:[facility] Appointment Type:PC OV Appointment Date:02/15/2025 11:00:00 AM Scheduled Provider: Location:[facility] Appointment Type:CT Abdomen and Pelvis w/ Contrast Appointment Date:02/22/2025 01:00:00 PM Scheduled Provider:DELBERT CHAKRABORTY MD Location:[facility] Appointment Type:GS OV Follow Up Future Scheduled Tests Laboratory* Urine Microscopic 08/24/24 * Urine Culture 08/24/24 Radiology* CT Abdomen and Pelvis w/ contrast 02/15/25 [facility] Evaluation + Plan note Future Appointments Appointment Date:10/20/2024 10:00:00 AM Scheduled Provider:SP POPE DO Location:[facility] Appointment Type:PC OV Appointment Date:02/15/2025 11:00:00 AM Scheduled Provider: Location:[facility] Appointment Type:CT Abdomen and Pelvis w/ Contrast Appointment Date:02/22/2025 01:00:00 PM Scheduled Provider:DELBERT CHAKRABORTY MD Location:[facility] Appointment Type:GS OV Follow Up Diagnostic Tests Pending * A1C Hemoglobin 09/15/24 Future Scheduled Tests Laboratory* Urine Microscopic 08/24/24 * Urine Culture 08/24/24 Radiology* CT Abdomen and Pelvis w/ contrast 02/15/25 [facility] [place] Labsaluation + Plan note Future Appointments Appointment Date:02/15/2025 11:00:00 AM Scheduled Provider: Location:[facility] Appointment Type:CT Abdomen and Pelvis w/ Contrast Appointment Date:02/22/2025 01:00:00 PM Scheduled Provider:DELBERT CHAKRABORTY MD Location:[facility] Appointment Type:GS OV Follow Up Appointment Date:03/02/2025 09:00:00 AM Scheduled Provider:SP POPE DO Location:[facility] Appointment Type:PC OV Follow Up Appointment Date:04/20/2025 11:00:00 AM Scheduled Provider:SP POPE DO Location:[facility] Appointment Type:PC OV Future Scheduled [...] CT Abdomen and Pelvis w/ contrast 02/15/25 [facility] Evaluation + Plan note Future Appointments Appointment Date:02/25/2025 01:50:00 PM Scheduled Provider:DELBERT CHAKRABORTY MD Location:[facility] Appointment Type:GS OV Follow Up Appointment Date:03/02/2025 09:00:00 AM Scheduled Provider:SP POPE DO Location:[facility] Appointment Type:PC OV Follow Up Appointment Date:04/20/2025 11:00:00 AM Scheduled Provider:SP POPE DO Location:[facility] Appointment Type:PC OV Appointment Date:05/13/2025 08:30:00 AM Scheduled Provider: Location:[facility] Appointment Type:NM Myocardial Spect Rest/Stress Meg [...] 01/06/25 Radiology* NM Myocardial Spect Rest/Stress 05/13/25 [facility] Evaluation + Plan note Future Appointments Appointment Date:02/25/2025 01:50:00 PM Scheduled Provider:DELBERT CHAKRABORTY MD Location:[facility] Appointment Type:GS OV Follow Up Appointment Date:03/02/2025 09:00:00 AM Scheduled Provider:SP POPE DO Location:[facility] Appointment Type:PC OV Follow Up Appointment Date:04/20/2025 11:00:00 AM Scheduled Provider:SP POPE DO Location:[facility] Appointment Type:PC OV Appointment Date:05/13/2025 08:30:00 AM Scheduled Provider: Location:[facility] Appointment Type:NM Myocardial Spect Rest/Stress Meg Future Scheduled Tests Laboratory* Albumin/Creatinine Ratio, Random Urine 01/06/25 Radiology* NM Myocardial Spect Rest/Stress 05/13/25 [facility] Evaluation + Plan note Future Appointments Appointment Date:04/20/2025 11:00:00 AM Scheduled Provider:SP POPE DO Location:[facility] Appointment Type:PC OV Appointment Date:05/13/2025 08:30:00 AM Scheduled Provider: Location:[facility] Appointment Type:NM Myocardial Spect Rest/Stress Meg Appointment Date:05/31/2025 02:00:00 PM Scheduled Provider:SP POPE DO Location:[facility] Appointment Type:PC OV Pre Op Appointment Date:06/21/2025 01:00:00 PM Scheduled Provider:DELBERT CHAKRABORTY MD Location:[facility] Appointment Type:GS OV Pre Op Appointment Date:09/07/2025 11:00:00 AM Scheduled Provider:SP POPE DO Location:[facility] Appointment Type:PC OV Future Scheduled Tests Laboratory* Albumin/Creatinine Ratio, Random Urine 09/02/25 * Albumin/Creatinine Ratio, Random Urine 01/06/25 Radiology* NM Myocardial Spect Rest/Stress 05/13/25 * CT Abdomen and Pelvis w/ contrast 08/26/25 [facility] Evaluation + Plan note Future Appointments Appointment Date:05/31/2025 02:00:00 PM Scheduled Provider:SP POPE DO Location:[facility] Appointment Type:PC OV Pre Op Appointment Date:06/21/2025 01:00:00 PM Scheduled Provider:DELBERT CHAKRABORTY MD Location:[facility] Appointment Type:GS OV Pre Op Appointment Date:09/07/2025 11:00:00 AM Scheduled Provider:SP POPE DO Location:[facility] Appointment Type:PC OV Future Scheduled Tests Laboratory* Albumin/Creatinine Ratio, Random Urine 09/02/25 * Albumin/Creatinine Ratio, Random Urine 01/06/25 Radiology* CT Abdomen and Pelvis w/ contrast 08/26/25 [facility] Hospital course Narrative No data available for this section [facility] Hospital Discharge instructions No data available for this section [facility] Progress note No data available for this section [facility] Summary Purpose Family History No Family History Records Found Advance Directives No Advanced Directives Records FoundNo Advanced Directives Records FoundNo Advanced Directives Records FoundNo Advanced Directives Records Found Additional Source Comments Care Team (unrecognized sect ion and content) Personnel Name: SP POPE DO Address: [address] [place] [address] Name: Charlie More Clerk Radha PT Personnel Name: SP POPE DO Address: [address] [place] [address] Name: Charlie More Clerk Radha PT Personnel Name: SP POPE DO Address: [address] [place] [address] Name: Charlie More Clerk Radha PT Personnel Name: SP POPE DO Address: [address] [place] [address] Name: Charlie More Clerk Radha PT Care Team Personnel Name: Charlie More Clerk Radha PT Position: P3 Scheduling - Ldr Nurse Advanced Member Role: Other Name: SP POPE DO Position: P4 Physician - Primary Care Member Role: Primary Care Physician Address: Address: [address] [place] [address] Name: DELBERT CHAKRABORTY MD Position: P4 Physician - General Surgery Member Role: Surgeon Address: Address: [address] [facility] [place] [address]- [place] Name: CRYSTAL PALMER MD Position: P3 Physician - Urologist Member Role: Urologist Address: Address: [address] [place] [address]- [place] Care Team Related Persons Name: AMSTUTZ, ANDREW Address: Home [address] [place], [place] [phone] [place] Care Team Personnel Name: Derik Digitizer Operator Radha PT Position: P3 Scheduling - Ldr Nurse Advanced Member Role: Other Name: SP POPE DO Position: P4 Physician - Primary Care Member Role: Primary Care Physician Address: Address: [address] [place] [address]- Name: DELBERT CHAKRABORTY MD Position: P4 Physician - General Surgery Member Role: Surgeon Address: Address: [address] [facility] [place] [address]- Name: CRYSTAL PALMER MD Position: P3 Physician - Urologist Member Role: Urologist Address: Address: [address] [place], [place] [phone]- Care Team Related Persons Name: ANDRWE BASS Address: Home [address] [place], [place] [phone] [place] Care Team Personnel Name: Derik Digitizer Operator Radha PT Position: P3 Scheduling - Ldr Nurse Advanced Member Role: Other Name: SP POPE DO Position: P4 Physician - Primary Care Member Role: Primary Care Physician Address: Address: [address] [place] [address]- Name: DELBERT CHAKRABORTY MD Position: P4 Physician - General Surgery Member Role: Surgeon Address: Address: [address] [place] [address]- Name: CRYSTAL PALMER MD Position: P3 Physician - Urologist Member Role: Urologist Address: Address: [address] [place] [address]- Care Team Related Persons Name: ANDREW BASS Address: Home [address] [place], [place] [phone] [place] Care Team Personnel Name: Derik Digitizer Operator Radha PT Position: P3 Scheduling - Ldr Nurse Advanced Member Role: Other Name: SP POPE DO Position: P4 Physician - Primary Care Member Role: Primary Care Physician Address: Address: [address] [place] [address]- Name: DELBERT CHAKRABORTY MD Position: P4 Physician - General Surgery Member Role: Surgeon Address: Address: [address] [facility] [place] [address]- Name: CRYSTAL PALMER MD Position: P3 Physician - Urologist Member Role: Urologist Address: Address: [address] [place] [address]- Care Team Related Persons Name: DEANDRACHAZANDREW Address: Home [address] [place], [place] [phone] [place] Care Team Personnel Name: Charlie More Clerk Radha PT Position: P3 Scheduling - Ldr Nurse Advanced Member Role: Other Name: SP POPE DO Position: P4 Physician - Primary Care Member Role: Primary Care Physician Address: Address: [address] [place] [address]- Name: DELBERT CHAKRABORTY MD Position: P4 Physician - General Surgery Member Role: Surgeon Address: Address: [address] [facility] [place] [address]- Name: CRYSTAL PALMER MD Position: P3 Physician - Urologist Member Role: Urologist Address: Address: [address] [place], [place] [phone]- Care Team Related Persons Name: ANDREW BASS Address: Home [address] [place], [place] [phone] [place] Care Team Personnel Name: Charlie More Clerk Radha PT Position: P3 Scheduling - Ldr Nurse Advanced Member Role: Other Name: SP POPE DO Position: P4 Physician - Primary Care Member Role: Primary Care Physician Address: Address: [address] [place] [address]- Name: DELBERT CHAKRABORTY MD Position: P4 Physician - General Surgery Member Role: Surgeon Address: Address: [address] [facility] [place] [address]- Name: CRYSTAL PALMER MD Position: P3 Physician - Urologist Member Role: Urologist Address: Address: [address] [place] [address]- Care Team Related Persons Name: ANDREW BASS Address: Home [address] [place], [place] [phone] [place] Care Team Personnel Name: Charlie More Clerk Radha PT Position: P3 Scheduling - Ldr Nurse Advanced Member Role: Other Name: SP POPE DO Position: P4 Physician - Primary Care Member Role: Primary Care Physician Address: Address: [address] [place] [address]- Name: DELBERT CHAKRABORTY MD Position: P4 Physician - General Surgery Member Role: Surgeon Address: Address: [address] [facility] [place] [address]- [place] Name: CRYSTAL PALMER MD Position: P3 Physician - Urologist Member Role: Urologist Address: Address: [address] [place] [address]- Care Team Related Persons Name: DEANDRAYinaANDREW BALDERAS Address: Home [address] [place], [place] [phone] [place] Care Team Personnel Name: Charlie More Clerk Radha PT Position: P3 Scheduling - Ldr Nurse Advanced Member Role: Other Name: SP POPE DO Position: P4 Physician - Primary Care Member Role: Primary Care Physician Address: Address: [address] [place] [address]- Name: DELBERT CHAKRABORTY MD Position: P4 Physician - General Surgery Member Role: Surgeon Address: Address: [address] [place] [address]- [place] Name: CRYSTAL PALMER MD Position: P3 Physician - Urologist Member Role: Urologist Address: Address: [address] [place] [address]- Care Team Related Persons Name: SHELIA ANDREW Address: [place] [address] [place] [phone] [place] Care Team Personnel Name: Charlie More Clerk Radha PT Position: P3 Scheduling - Ldr Nurse Advanced Member Role: Other Name: SP POPE DO Position: P4 Physician - Primary Care Member Role: Primary Care Physician Address: Address: [address] [place] [address]- [place] Name: DELBERT CHAKRABORTY MD Position: P4 Physician - General Surgery Member Role: Surgeon Address: Address: [address] [place] [address]- [place] Name: CRYSTAL PALMER MD Position: P3 Physician - Urologist Member Role: Urologist Address: Address: [address] [place] [address]- Care Team Related Persons Name: SHELIA ANDREW Address: Home [address] [place], [place] [phone] [place] Care Team Personnel Name: Charlie More PT Position: P3 Scheduling - Ldr Nurse Advanced Member Role: Other Name: SP POPE DO Position: P4 Physician - Primary Care Member Role: Primary Care Physician Address: Address: [address] [place] [address]- Name: DELBERT CHAKRABORTY MD Position: P4 Physician - General Surgery Member Role: Surgeon Address: Address: [address] [facility] [place] [address]- Name: CRYSTAL PALMER MD Position: P3 Physician - Urologist Member Role: Urologist Address: Address: [address] [place], [place] [phone]- Care Team Related Persons Name: DEANDRAYinaANDREW BALDERAS Address: Home [address] [place], [place] [phone] [place] Care Team Personnel Name: Charlie Morerjazmin Garcia PT Position: P3 Scheduling - Ldr Nurse Advanced Member Role: Other Name: SP POPE DO Position: P4 Physician - Primary Care Member Role: Primary Care Physician Address: Address: [address] [place] [address]- Name: DELBERT CHAKRABORTY MD Position: P4 Physician - General Surgery Member Role: Surgeon Address: Address: [address] [facility] [place] [address]- Name: CRYSTAL PALMER MD Position: P3 Physician - Urologist Member Role: Urologist Address: Address: [address] [place] [address]- Care Team Related Persons Name: SHELIAMELISSAANDREW Address: Home [address] [place], [place] [phone] [place] Care Team Personnel Name: Charlie More PT Position: P3 Scheduling - Ldr Nurse Advanced Member Role: Other Name: SP POPE DO Position: P4 Physician - Primary Care Member Role: Primary Care Physician Address: Address: [address] [place] [address]- Name: DELBERT CHAKRABORTY MD Position: P4 Physician - General Surgery Member Role: Surgeon Address: Address: [address] [facility] [place] [address]- Name: CRYSTAL PALMER MD Position: P3 Physician - Urologist Member Role: Urologist Address: Address: [address] [place] [address] [address] [place] [address]- Care Team Related Persons Name: ANDREW BASS Address: [address] [phone] Care Team Personnel Name: Charlie More Clerjazmin Garcia PT Position: P3 Scheduling - Ldr Nurse Advanced Member Role: Other Name: SP POPE DO Position: P4 Physician - Primary Care Member Role: Primary Care Physician Address: [address] [place] [address]- Telecom: Name: DELBERT CHAKRABORTY MD Position: P4 Physician - General Surgery Member Role: Surgeon Address: [address] [facility] [place] [address]- Telecom: Name: CRYSTAL PALMER MD Position: P3 Physician - Urologist Member Role: Urologist Address: [address] [place] [address] [address] [place] [address]- [place] Telecom: Care Team Related Persons Name: ANDREW BASS Care Team Personnel Name: Charlie More PT Position: P3 Scheduling - Ldr Nurse Advanced Member Role: Other Name: SP POPE DO Position: P4 Physician - Primary Care Member Role: Primary Care Physician Address: [address] [place] [address]- [place] Telecom: Name: DELBERT CHAKRABORTY MD Position: P4 Physician - General Surgery Member Role: Surgeon Address: [address] [facility] [place] [address]- [place] Telecom: Name: CRYSTAL PALMER MD Position: P3 Physician - Urologist Member Role: Urologist Address: [address] [facility] [address] [place] [address]- [place] Telecom: Care Team Related Persons Name: AMSTUTZ, ANDREW Care Team Personnel Name: Derik Digitizer Operator Radha PT Position: P3 Scheduling - Ldr Nurse Advanced Member Role: Other Name: SP POPE DO Position: P4 Physician - Primary Care Member Role: Primary Care Physician Address: [address] [place], [place] [address] Telecom: Name: DELBERT CHAKRABORTY MD Position: P4 Physician - General Surgery Member Role: Surgeon Address: [address] [facility] [place] [address]- [place] Telecom: Name: CRYSTAL PALMER MD Position: P3 Physician - Urologist Member Role: Urologist Address: [address] [facility] [address] [place] [address]- [place] Telecom: Care Team Related Persons Name: ANDREW BASS Care Team Personnel Name: Charlie More Clerk Radha PT Position: P3 Scheduling - Ldr Nurse Advanced Member Role: Other Name: SP POPE DO Position: P4 Physician - Primary Care Member Role: Primary Care Physician Address: [address] [place] [address]- Telecom: Name: DELBERT CHAKRABORTY MD Position: P4 Physician - General Surgery Member Role: Surgeon Address: [address] [place] [address]- Telecom: Name: CRYSTAL PALMER MD Position: P3 Physician - Urologist Member Role: Urologist Address: [address] [facility] [address] [place] [address]- [place] Telecom: Care Team Related Persons Name: ANDREW BASS Care Team Personnel Name: Charlie More Clerk Radha PT Position: P3 Scheduling - Ldr Nurse Advanced Member Role: Other Name: SP POPE DO Position: P4 Physician - Primary Care Member Role: Primary Care Physician Address: [address] [place] [address]- Telecom: Name: DELBERT CHAKRABORTY MD Position: P4 Physician - General Surgery Member Role: Surgeon Address: [address] [facility] [place] [address]- [place] Telecom: Name: CRYSTAL PALMER MD Position: P3 Physician - Urologist Member Role: Urologist Address: [address] [facility] [address] [place] [address]- [place] Telecom: Care Team Related Persons Name: ANDREW BASS Care Team Personnel Name: Charlie More Clerk Radha PT Position: P3 Scheduling - Ldr Nurse Advanced Member Role: Other Name: SP POPE DO Position: P4 Physician - Primary Care Member Role: Primary Care Physician Address: [address] [place] [address]- [place] Telecom: Name: DELBERT CHAKRABORTY MD Position: P4 Physician - General Surgery Member Role: Surgeon Address: [address] [facility] [place] [address]- [place] Telecom: Name: CRYSTAL PALMER MD Position: P3 Physician - Urologist Member Role: Urologist Address: [address] [facility] [address] [place] [address]- [place] Telecom: Care Team Related Persons Name: ANDREW BASS Care Team Personnel Name: Charlie More Clerk Radha PT Position: P3 Scheduling - Ldr Nurse Advanced Member Role: Other Name: SP POPE DO Position: P4 Physician - Primary Care Member Role: Primary Care Physician Address: [address] [place] [address]- [place] Telecom: Name: DELBERT CHAKRABORTY MD Position: P4 Physician - General Surgery Member Role: Surgeon Address: [address] [facility] [place] [address]- [place] Telecom: Name: CRYSTAL PALMER MD Position: P3 Physician - Urologist Member Role: Urologist Address: [address] [facility] [address] [place] [address]- [place] Telecom: Care Team Related Persons Name: DEANDRAMELISSA WARENIE Care Team Personnel Name: Charlie More Clerk Radha PT Position: P3 Scheduling - Ldr Nurse Advanced Member Role: Other Name: SP POPE DO Position: P4 Physician - Primary Care Member Role: Primary Care Physician Address: [address] [place], [place] [address] Telecom: Name: DELBERT CHAKRABORTY MD Position: P4 Physician - General Surgery Member Role: Surgeon Address: [address] [place] [phone] [place] Telecom: Name: CRYSTAL PALMER MD Position: P3 Physician - Urologist Member Role: Urologist Address: [address] [facility] [address] [place] [address]- Telecom: Care Team Related Persons Name: ANDREW BASS Care Team Personnel Name: Charlie More Clerk Radha PT Position: P3 Scheduling - Ldr Nurse Advanced Member Role: Other Name: SP POPE DO Position: P4 Physician - Primary Care Member Role: Primary Care Physician Address: [address] [place] [address]- Telecom: Name: DELBERT CHAKRABORTY MD Position: P4 Physician - General Surgery Member Role: Surgeon Address: [address] [place] [address]- [place] Telecom: Name: CRYSTAL PALMER MD Position: P3 Physician - Urologist Member Role: Urologist Address: [address] [facility] [address] [place] [address]- [place] Telecom: Care Team Related Persons Name: ANDREW BASS Care Team Personnel Name: Charlie More Clerk Radha PT Position: P3 Scheduling - Ldr Nurse Advanced Member Role: Other Name: SP POPE DO Position: P4 Physician - Primary Care Member Role: Primary Care Physician Address: [address] [place] [address]- Telecom: Name: DELBERT CHAKRABORTY MD Position: P4 Physician - General Surgery Member Role: Surgeon Address: [address] [facility] [place] [address]- Telecom: Name: CRYSTAL PALMER MD Position: P3 Physician - Urologist Member Role: Urologist Address: [address] [place] [address] [address] [facility] [place] [address]- Telecom: Care Team Related Persons Name: ANDREW BASS Care Team (unrecognized sect ion and content) Personnel Name: SP POPE DO Address: Address: [address] [place] [address] Name: Charlie More PT Care Team Personnel Name: Charlie Morerjazmin Garcia PT Position: P3 Scheduling - Ldr Nurse Advanced Member Role: Other Name: SP POPE DO Position: P4 Physician - Primary Care Med Service: Active Provider Member Role: Primary Care Physician Address: Address: [address] [place] [address] Care Team Related Persons Name: ANDREW BASS Address: Home [address] [place], [place] [id number] Care Team Personnel Name: Charlie More PT Position: P3 Scheduling - Ldr Nurse Advanced Member Role: Other Name: SP POPE DO Position: P4 Physician - Primary Care Med Service: Active Provider Member Role: Primary Care Physician Address: Address: [address] [place] [address] Name: DELBERT CHAKRABORTY MD Position: P4 Physician - General Surgery Med Service: Cindy Quinn M.D. Member Role: Surgeon Address: Address: [address] [facility] [address] [facility] [place] [place] [address]- Care Team Related Persons Name: ANDREW BASS Address: Home [address] [place], [place] [id number] Care Team Personnel Name: Charlie More Clerk Radha PT Position: P3 Scheduling - Ldr Nurse Advanced Member Role: Other Name: SP POPE DO Position: P4 Physician - Primary Care Member Role: Primary Care Physician Address: Address: [address] [place] [address] Name: DELBERT CHAKRABORTY MD Position: P4 Physician - General Surgery Address: Address: [address] [facility] [address] [facility] General Surgery [place], [place] [address] Name: CRYSTAL PALMER MD Position: P3 Physician - Urologist Address: Address: [address] [place] [address] [address] [place], [place] [address] Care Team Related Persons Name: SHELIA ANDREW Address: Home [address] [place], [place] [id number] Care Team Personnel Name: Derik Digitizer Operator Radha PT Position: P3 Scheduling - Ldr Nurse Advanced Member Role: Other Name: SP POPE DO Position: P4 Physician - Primary Care Member Role: Primary Care Physician Address: Address: [address] [place] [address] Name: DELBERT CHAKRABORTY MD Position: P4 Physician - General Surgery Member Role: Surgeon Address: Address: [address] [facility] [address] [facility] General Surgery [place], [place] [address] Name: CRYSTAL PALMER MD Position: P3 Physician - Urologist Member Role: Urologist Address: Address: [address] [place] [address] [place] Care Team Related Persons Name: SHELIAANDREW Address: [place] [address] [place], [place] [id number] (unrecognized sect ion and content) No Status Records FoundNo Status Records FoundNo Status Records FoundNo Status Records Found INFORMATION SOURCE (unrecogn ized section and content) DATE CREATED AUTHOR 02/29/2024 [facility] ([place]) DATE CREATED AUTHOR AUTHOR'S ORGANIZ ATION 05/29/2025 [facility] DATE CREATED AUTHOR AUTHOR'S ORGANIZ ATION 06/05/2025 [facility] DATE CREATED AUTHOR AUTHOR'S ORGANIZ ATION 06/21/2025 [facility] FOR RECORDS PERTAINING TO PATIENTS WHO [...] BE BASED ON THE PRIMARY CLINICAL RECORDS. [facility]. provides no warranty or guarantee of the accuracy or completeness of information in this document.
== END | disposition home or self-care (01) ==
LOC: CVS 06:53
PROVIDERS: PCP Student in an Organized Health Care Education/Training Program; Referring Provider Internal Medicine Cardiovascular Disease; Visit Provider Internal Medicine Cardiovascular Disease
DX: I34.0 Nonrheumatic mitral (valve) insufficiency (principal); I36.1 Nonrheumatic tricuspid (valve) insufficiency; R06.02 Shortness of breath
CPT/HCPCS: 93306